=== PATIENT | male | born 1960 | race Caucasian/White ===

== ENCOUNTER 2020-06-28 01:23 | Emergency (ER) | payer OTHER, MEDICAID, SELFPAY ==
[2020-06-28 01:23] VITALS: BP 178/99; PULSE 116; RESP 18; TEMP 36.7; O2SAT 98; BMI 32.5
[2020-06-28] MEDS: SODIUM CHLORIDE 0.9% 500 ML 1000 ML IV (02:16)
[2020-06-28] MEDS: DEXTROSE 50 % IN WATER 25 GM/50 ML SYRINGE IV (02:18)
[2020-06-28 02:30] LABS: Add Manual Diff / Slide Review NO; Basophils Absolute Auto 100 /uL (0-100); Basophils Percent Auto 0.5 % (0-2); Eosinophils Absolute Auto 300 /uL (0-450); Eosinophils Percent Auto 1.6 % (2-4); Hematocrit 29.9 % (41-53); Hemoglobin 9.4 g/dL (13.5-17.5); Lymphocytes Absolute Auto 800 /uL (1100-4500); Lymphocytes Percent Auto 4.6 % (25-40); Mean Corpuscular HGB Conc 31.4 % (30-36); Mean Corpuscular Hemoglobin 26.8 PG (26-34); Mean Corpuscular Volume 85.3 fL (80-100); Monocytes Absolute Auto 900 /uL (0-900); Monocytes Percent Auto 5.5 % (3-14); Neutrophils Absolute Auto 15100 /uL (1500-7000); Neutrophils Percent Auto 87.8 % (50-75); Platelet Count 553 X10^3/uL (150-400); Red Cell Distribution Width 14.6 % (11.6-14.8); White Blood Cell Count 17.2 X10^3/uL (4.5-11.0)
[2020-06-28 02:34] VITALS: BP 153/86; PULSE 94; O2SAT 97
[2020-06-28 02:39] LABS: Alanine Aminotransferase 6 IU/L (<50); Albumin 3.5 g/dL (3.5-5.0); Albumin Globulin Ratio 1.1 (1.0-2.8); Alkaline Phosphatase 80 U/L (38-126); Aspartate Aminotransferase 11 IU/L (17-59); Bilirubin Total 0.3 mg/dL (0.2-1.3); Blood Urea Nitrogen 40 mg/dL (9-20); Calcium 8.9 mg/dL (8.4-10.2); Carbon Dioxide 21 mmol/L (22-32); Chloride 110 mmol/L (98-107); Estimated Glomerular Filt Rate 17.3 mL/min (>60); Globulin 3.1 g/dL (1.7-4.1); Glucose 65 mg/dL (80-110); HEMOLYSIS < 15 (0-50); Potassium 4.7 mmol/L (3.4-5.1); Sodium 139 mmol/L (137-145); Total Protein 6.6 g/dL (6.3-8.2)
[2020-06-28 03:27] LABS: RBC Urine None Seen (0-5/HPF)
[2020-06-28 03:28] LABS: Appearance Urine UA CLOUDY; Bilirubin Urine UA NEGATIVE (NEGATIVE); Glucose Urine UA NEGATIVE (Negative); Ketones Urine UA NEGATIVE (NEGATIVE); Leukocyte Esterase Urine UA 3+ (NEGATIVE); Nitrite Urine UA POSITIVE (Negative); Occult Blood Urine UA 1+ (Negative); Protein Urine UA TRACE (Negative); Urobilinogen Urine UA 0.2 E.U./dL (0.2); pH Urine UA 6.5 (4.5-8.0)
[2020-06-28 03:32] LABS: Color Urine UA Yellow
[2020-06-28] MEDS: CEFTRIAXONE 2 GM/50 ML FROZ.PIGGY IV (03:39)
[2020-06-28 03:41] LABS: Bacteria Urine Many (>30); Culture Indicated Urine Specimen Cultured; Squamous Epithelial Cell Urine 1-5 /HPF (0-5/HPF); WBC Urine 30-100/HPF (0-5/HPF)
--- NOTE | 2020-06-28 04:02 | ED_ITS ---
HPI - General Adult General Chief complaint: Diabetic Problem Stated complaint: Hand feel weird Time Seen by Provider: 06/28/20 01:41 Source: patient and EMS Mode of arrival: EMS History of Present Illness HPI narrative: 59-year-old gentleman with a history of multiple sclerosis currently living and [facility]. Was noted today to have slightly slurred speech and complaining of tingling in his hands and was sent to the emergency room for further evaluation. Initial blood sugar was noted to be 35. This certainly could explain the symptoms noted. He was given a number of things to eat and after an hour his sugar was still only up to the mid 60s. He knows that he was given his usual 30 units of nighttime Lantus and is very clear that there was only 1 dose of insulin this evening. He complains of no new sym ptoms. Specifically, no fevers, no abdominal pain no dysuria, no cough. He does note that he thinks he has some abrasions from 1 of the lifts that was used and does note that there is some excoriation over his perineum. Related Data Previous Rx's Medication Instructions Recorded cephalexin 500 mg PO TID #30 cap 06/28/20 Allergies Allergy/AdvReac Type Severity Reaction Status Date / Time No Known Drug Allergies Allergy Verified 06/28/20 01:30 Review of Systems Review of Systems ROS Unobtainable: All systems reviewed & are unremarkable except as noted in HPI and below Patient History Medical History (Updated 06/28/20 @ 04:18 by Tesha Zarco MD) Chronic anemia Chronic kidney disease Hyperlipidemia Hypertension Multiple sclerosis Neurogenic bladder Stroke Type 2 diabetes mellitus Social History Smoking Status: Never smoker Smoking Status: Never smoker alcohol intake frequency: 0-2 drinks per day Substance Use Type: does not use Exam Narrative Exam Narrative: General: Healthy appearing, in no acute distress. Able to participate with history taking HEENT: Moist mucous membranes, normal sclera with reactive pupils, mild dysarthria Neck: No JVD, supple Respiratory: Lungs are clear to auscultation, no wheezing no rales no rhonchi. Full and symmetrical air movement Cardiac: Regular rate and rhythm no murmurs no bruits Abdomen: Soft, nontender, good bowel tones, no flank pain Skin: Pale but dry. Significant excoriation secondary to chronic moisture over the perineum and up both upper thighs without evidence of pressure ulcers Neurologic: Globally weak secondary to his multiple sclerosis Extremities: No trauma, well perfused Psych: Cooperative, appropriate insight and affect Initial Vital Signs Initial Vital Signs: Vital Signs Temperature 98.0 F 06/28/20 01:23 Pulse Rate 116 H 06/28/20 01:23 Respiratory Rate 18 06/28/20 01:23 Blood Pressure 178/99 H 06/28/20 01:23 Pulse Oximetry 98 06/28/20 01:23 Course Orders Ordered: ED Orders 06/28/20 EKG-12 Lead Stat 06/28/20 02:20 Complete Blood Count AUTO DIFF Stat Comprehensive Metabolic Panel Stat 06/28/20 03:10 Urinalysis and Microscopic Stat Urine Culture Stat Discontinued Medications Dextrose (Dextrose 50 % In Water 25 Gm/50 Ml Syringe) 25 gm IV NOW ONE Stop: 06/28/20 02:11 Last Admin: 06/28/20 02:18 Dose: 25 gm Documented by: MUNIRA Sodium Chloride (Normal Saline 0.9%) 500 mls @ 1,000 mls/hr IV BOLUS ONE Stop: 06/28/20 02:39 Last Infusion: 06/28/20 02:50 Dose: 0 mls/hr Documented by: Admin: 06/28/20 02:16 Dose: 1,000 mls/hr Documented by: MUNIRA Ceftriaxone Sodium/Dextrose (Rocephin) 2 gm in 50 mls @ 100 mls/hr IV NOW ONE Stop: 06/28/20 04:03 Last Admin: 06/28/20 03:39 Dose: 100 mls/hr Documented by: JOHNNIE Vital Signs Vital signs: Vital Signs - 8 hr 06/28/20 01:23 06/28/20 02:34 Temperature 98.0 F Pulse Rate 116 H 94 H Respiratory Rate 18 Blood Pressure 178/99 H 153/86 H Pulse Oximetry 98 97 Medical Decision Making Medical Records Medical records reviewed: Yes I reviewed the patient's medical records. Lab Data Lab results reviewed: Yes I reviewed the patient's lab results. Result diagrams: 06/28/20 02:20 06/28/20 02:20 Labs: Lab Results 06/28/20 06/28/20 06/28/20 Range/Units 02:20 02:20 03:10 WBC 17.2 H (4.5-11.0) X10^3/uL RBC 3.50 L (4.5-5.9) X10^6/uL Hgb 9.4 L (13.5-17.5) g/dL Hct 29.9 L (41-53) % MCV 85.3 (80-100) fL MCH 26.8 (26-34) PG MCHC 31.4 (30-36) % RDW 14.6 (11.6-14.8) % Plt Count 553 H (150-400) X10^3/uL Neut % (Auto) 87.8 H (50-75) % Lymph % (Auto) 4.6 L (25-40) % [place] % (Auto) 5.5 (3-14) % Eos % (Auto) 1.6 L (2-4) % Baso % (Auto) 0.5 (0-2) % Neut # (Auto) 51685 H (6678-6919) /uL Lymph # (Auto) 800 L (5339-0806) /uL [place] # (Auto) 900 (0-900) /uL Eos # (Auto) 300 (0-450) /uL Baso # (Auto) 100 (0-100) /uL Sodium 139 (137-145) mmol/L Potassium 4.7 (3.4-5.1) mmol/L Chloride 110 H (98-107) mmol/L Carbon Dioxide 21 L (22-32) mmol/L BUN 40 H (9-20) mg/dL Creatinine 3.62 H (0.66-1.25) mg/dL Estimated GFR 17.3 L (>60) mL/min BUN/Creatinine Ratio 11.0 (6-22) Glucose 65 L (80-110) mg/dL Calcium 8.9 (8.4-10.2) mg/dL Total Bilirubin 0.3 (0.2-1.3) mg/dL AST 11 L (17-59) IU/L ALT 6 (<50) IU/L Alkaline Phosphatase 80 (38-126) U/L Total Protein 6.6 (6.3-8.2) g/dL Albumin 3.5 (3.5-5.0) g/dL Globulin 3.1 (1.7-4.1) g/dL Albumin/Globulin Ratio 1.1 (1.0-2.8) Urine Color Yellow Urine Appearance Cloudy Urine pH 6.5 (4.5-8.0) Ur Specific [place] 1.010 (1.000-1.035) Urine Protein Trace H (Negative) Urine Glucose (UA) Negative (Negative) g/dL Urine Ketones Negative (NEGATIVE) Urine Occult Blood 1+ H (Negative) Urine Nitrate Positive (Negative) Urine Bilirubin Negative (NEGATIVE) Urine Urobilinogen 0.2 (0.2) E.U./dL Ur Leukocyte Esterase 3+ H (NEGATIVE) Urine RBC None seen (0-5/HPF) Urine WBC 30-100/hpf H (0-5/HPF) Ur Squamous Epith Cells 1-5 /hpf (0-5/HPF) Urine Bacteria Many (>30) H (None) Ur Culture Indicated? Specimen cultured Point of Care Testing Glucose POC 97 Point of care testing: Point of Care Testing Glucose POC 97 ECG Data Attestation: I personally reviewed and interpreted this ECG as follows: Interpretation: Sinus tachycardia at 110 Normal axis, normal intervals No acute ischemic changes MDM Narrative Medical decision making narrative: 59-year-old gentleman with concerns for acute neurologic changes that correlated nicely with a blood sugar in the mid 30s and have resolved as his blood sugar has increased. Noted to have a significantly elevated white blood cell count And urinalysis suggests an acute UTI. Moderate excoriation to the perineum and upper thighs without obvious cellulitis. Area was cleaned thoroughly and barrier dressing was applied as well as a clean brief. He has been afebrile, has no specific complaints, states that he does not feel acutely ill nor does he notice any dysuria (he states that he typically can feel dysuria with prior bladder infections). In the emergency department he was given 25 g of IV glucose and blood sugars are in the 170 range he is clearly feeling better. 2 g of IV ceftriaxone to cover both urine and skin concerns with mild perineal breakdown. His heart rate has come down nicely he has remained afebrile and blood pressure has been stable throughout his visit. There are no signs of sepsis, acute coronary syndrome, acute neurologic event or significant exacerbation of his MS this time. He will be discharged back to his assisted living facility with a prescription for Keflex for presumed UTI (urine is cultured) and to help with the excoriated area of the perineum. 630 am BS is 97. Breakfast tray is ordered. transport expected to be available after 7am Discharge Plan Departure Patient Disposition: Home Clinical Impression: Hypoglycemia, Multiple sclerosis, Skin ulcer of perineum, limited to breakdown of skin, Chronic anemia Chronic kidney disease Qualifiers: Chronic kidney disease stage: unspecified stage Qualified Code(s): N18.9 - Chronic kidney disease, unspecified Urinary tract infection Qualifiers: Urinary tract infection type: acute cystitis Hematuria presence: without hematuria Qualified Code(s): N30.00 - Acute cystitis without hematuria Instructions: DI for Urinary Tract Infection (UTI) Activity Restrictions/Additional Instructions: You had an episode of significant hypoglycemia today and this caused some of the confusion and numbness that you experienced prior to arrival. This is resolved with some IV sugar as well as eating. Your noted to have a high white blood cell count in your urine looks like you do have a bladder infection. This may be the cause of the hypoglycemia noted today. You have been given 2 g of IV ceftriaxone and will need to complete an additional 10 days of oral Keflex. If the urine culture comes back suggesting a different antibiotic is required you will be contacted by phone. You have quite a bit of excoriation over your buttocks scrotum and upper thighs. You need to make sure that your brief his changed regularly and barrier creams or generously used and might even consider a condom cath for a bit of time so the skin can heal completely. If they are worsening symptoms, please feel free to return to the emergency d epartment Prescriptions: New cephalexin 500 mg capsule 500 mg PO TID Qty: 30 RF: 0
== END 2020-06-28 08:58 | disposition home or self-care (01) ==
PROVIDERS: Emergency Provider Emergency Medicine
DX: E11.649 Type 2 diabetes mellitus with hypoglycemia without coma (principal); L98.491 Non-pressure chronic ulcer of skin of other sites limited to breakdown of skin; N18.9 Chronic kidney disease, unspecified; D64.9 Anemia, unspecified; N30.00 Acute cystitis without hematuria; R20.2 Paresthesia of skin; G35 Multiple sclerosis; I10 Essential (primary) hypertension; E78.5 Hyperlipidemia, unspecified; D72.829 Elevated white blood cell count, unspecified
CPT/HCPCS: 36415; 80053; 81001; 82962; 85025; 87077; 87086; 87186; 93005; 93010; 96361; 96365; 99283; 99284; J0696

== ENCOUNTER → 2020-09-01 16:03 | Outpatient (ROUT) | payer OTHER, MEDICAID, SELFPAY ==
[2020-09-01 16:17] LABS: Add Manual Diff / Slide Review NO; Basophils Absolute Auto 100 /uL (0-100); Basophils Percent Auto 0.7 % (0-2); Eosinophils Absolute Auto 800 /uL (0-450); Eosinophils Percent Auto 6.5 % (2-4); Hematocrit 34.7 % (41-53); Hemoglobin 11.1 g/dL (13.5-17.5); Lymphocytes Absolute Auto 1200 /uL (1100-4500); Lymphocytes Percent Auto 9.4 % (25-40); Mean Corpuscular Hemoglobin 28.3 PG (26-34); Mean Corpuscular Volume 88.3 fL (80-100); Monocytes Absolute Auto 1000 /uL (0-900); Monocytes Percent Auto 8.2 % (3-14); Neutrophils Absolute Auto 9400 /uL (1500-7000); Neutrophils Percent Auto 75.2 % (50-75); Platelet Count 398 X10^3/uL (150-400); Red Blood Cell Count 3.93 X10^6/uL (4.5-5.9); Red Cell Distribution Width 16.1 % (11.6-14.8); White Blood Cell Count 12.6 X10^3/uL (4.5-11.0)
[2020-09-01 16:24] LABS: BUN Creatinine Ratio 14.9 (6-22); Blood Urea Nitrogen 51 mg/dL (9-20); Calcium 8.7 mg/dL (8.4-10.2); Carbon Dioxide 20 mmol/L (22-32); Chloride 112 mmol/L (98-107); Estimated Glomerular Filt Rate 18.4 mL/min (>60); Glucose 129 mg/dL (80-110); Sodium 142 mmol/L (137-145)
[2020-09-01 16:27] LABS: HEMOLYSIS 69 (0-50); Potassium 5.5 mmol/L (3.4-5.1)
== END ==
PROVIDERS: Visit Provider Internal Medicine
DX: N18.9 Chronic kidney disease, unspecified (principal)
CPT/HCPCS: 80048; 85025

== ENCOUNTER → 2020-09-06 12:12 | Outpatient (ROUT) | payer OTHER, MEDICAID, SELFPAY ==
[2020-09-06 12:31] LABS: BUN Creatinine Ratio 14.6 (6-22); Blood Urea Nitrogen 53 mg/dL (9-20); Calcium 8.6 mg/dL (8.4-10.2); Carbon Dioxide 20 mmol/L (22-32); Chloride 111 mmol/L (98-107); Estimated Glomerular Filt Rate 17.3 mL/min (>60); Glucose 120 mg/dL (80-110); HEMOLYSIS 26 (0-50); Potassium 5.2 mmol/L (3.4-5.1); Sodium 140 mmol/L (137-145)
== END ==
PROVIDERS: Visit Provider Internal Medicine
DX: E87.5 Hyperkalemia (principal); Z79.899 Other long term (current) drug therapy
CPT/HCPCS: 80048

== ENCOUNTER → 2020-09-20 08:00 | Outpatient (ROUT) | payer OTHER, MEDICAID, SELFPAY ==
[2020-09-20 08:50] LABS: BUN Creatinine Ratio 18.8 (6-22); Blood Urea Nitrogen 52 mg/dL (9-20); Calcium 8.3 mg/dL (8.4-10.2); Carbon Dioxide 24 mmol/L (22-32); Chloride 111 mmol/L (98-107); Estimated Glomerular Filt Rate 23.6 mL/min (>60); Glucose 67 mg/dL (80-110); HEMOLYSIS < 15 (0-50); Potassium 4.6 mmol/L (3.4-5.1); Sodium 140 mmol/L (137-145)
== END ==
PROVIDERS: Visit Provider Nurse Practitioner Family
DX: N18.9 Chronic kidney disease, unspecified (principal)
CPT/HCPCS: 36415; 80048

== ENCOUNTER → 2020-09-21 13:58 | Outpatient (CLI) | payer OTHER, MEDICAID, SELFPAY ==
--- NOTE | 2020-09-21 | DI.US.S_ITS ---
PROCEDURE: US RENAL COMPLETE INDICATIONS: Unspecified hydronephrosis TECHNIQUE: Real-time scanning was performed of the kidneys and bladder, with image documentation. COMPARISON: [facility], CT, CT KUB, 11/17/2019, 1:53. [facility], US, US RENAL COMPLETE, 05/04/2020, 9:14. FINDINGS: Kidneys: Kidneys are normal in size. Right kidney measures 10.2 cm long; left kidney measures 9.1 cm long. Right renal cortical thickness is 1.4 cm; left renal cortical thickness is 1.4 cm. Renal cortical echotexture is normal. There is bilateral moderate hydronephrosis and no nephrolithiasis. No suspicious solid mass lesions. Bladder: The bladder was empty at time of scanning but the bladder wall appears abnormally thickened at 7 to 18 mm approximate range of thickness. Miscellaneous: No free pelvic fluid. IMPRESSION: Bilateral moderate hydronephrosis is again present with reference to the prior ultrasound 05/04/20. The bladder was not distended at time of scanning in the bladder wall appears abnormally thickened. Further assessment of the bladder is recommended utilizing proper preparation if possible. Etiology of bladder wall thickening has not been established. The bladder wall did not appear thickened at time of CT scanning 11/17/19, but at that time the bladder was urine filled and somewhat distended.. Dictated by: Pierre Shields M.D. on 09/21/2020 at 15:57 Approved by: Pierre Shields M.D. on 09/21/2020 at 16:00
== END ==
PROVIDERS: Referring Provider Internal Medicine; Visit Provider Nurse Practitioner Gerontology
DX: N13.30 Unspecified hydronephrosis (principal)
CPT/HCPCS: 76770

== ENCOUNTER → 2020-10-11 08:10 | Outpatient (ROUT) | payer OTHER, MEDICAID, SELFPAY ==
[2020-10-11 08:37] LABS: Add Manual Diff / Slide Review NO; Basophils Absolute Auto 100 /uL (0-100); Basophils Percent Auto 1.1 % (0-2); Eosinophils Absolute Auto 700 /uL (0-450); Eosinophils Percent Auto 8.7 % (2-4); Hematocrit 32.8 % (41-53); Hemoglobin 10.8 g/dL (13.5-17.5); Lymphocytes Absolute Auto 1500 /uL (1100-4500); Lymphocytes Percent Auto 18.7 % (25-40); Mean Corpuscular Hemoglobin 28.7 PG (26-34); Monocytes Absolute Auto 700 /uL (0-900); Monocytes Percent Auto 9.5 % (3-14); Neutrophils Absolute Auto 4900 /uL (1500-7000); Platelet Count 279 X10^3/uL (150-400); Red Blood Cell Count 3.77 X10^6/uL (4.5-5.9); Red Cell Distribution Width 14.3 % (11.6-14.8); White Blood Cell Count 7.9 X10^3/uL (4.5-11.0)
[2020-10-11 08:54] LABS: Alanine Aminotransferase 13 IU/L (<50); Albumin 3.3 g/dL (3.5-5.0); Albumin Globulin Ratio 1.2 (1.0-2.8); Alkaline Phosphatase 64 U/L (38-126); Aspartate Aminotransferase 14 IU/L (17-59); BUN Creatinine Ratio 17.7 (6-22); Bilirubin Total 0.1 mg/dL (0.2-1.3); Blood Urea Nitrogen 55 mg/dL (9-20); Calcium 8.7 mg/dL (8.4-10.2); Carbon Dioxide 24 mmol/L (22-32); Chloride 111 mmol/L (98-107); Estimated Glomerular Filt Rate 20.7 mL/min (>60); Globulin 2.8 g/dL (1.7-4.1); Glucose 75 mg/dL (80-110); HEMOLYSIS < 15 (0-50); Phosphorous 4.2 mg/dL (2.3-3.7); Potassium 4.6 mmol/L (3.4-5.1); Sodium 140 mmol/L (137-145); Total Protein 6.1 g/dL (6.3-8.2); Uric Acid 6.3 mg/dL (3.5-8.5)
[2020-10-12 08:42] LABS: Parathyroid Hormone Int 52 pg/mL (15-65)
[2020-10-12 12:42] LABS: Osmolality, Serum 312 mOsmol/kg (275-295)
[2020-10-13 11:40] LABS: Albumin 3.1 g/dL (2.9-4.4); Alpha-1-Globulin 0.2 g/dL (0.0-0.4); Alpha-2-Globulin 0.6 g/dL (0.4-1.0); Globulin Total 2.5 g/dL (2.2-3.9); Protein, Total 5.6 g/dL (6.0-8.5)
== END ==
PROVIDERS: Visit Provider Internal Medicine
DX: N17.9 Acute kidney failure, unspecified (principal); N18.31 Chronic kidney disease, stage 3a; I10 Essential (primary) hypertension; E11.3299 Type 2 diabetes mellitus with mild nonproliferative diabetic retinopathy without macular edema, unspecified eye
CPT/HCPCS: 36415; 80053; 80069; 83930; 83970; 84155; 84165; 84550; 85025

== ENCOUNTER → 2020-10-13 08:43 | Outpatient (ROUT) | payer OTHER, MEDICAID, SELFPAY ==
[2020-10-13 08:47] LABS: Creatinine Urine Random QNS mg/dL; Microalbumi Creatinin Ratio Ur QNS ug/mg CR (<30); Microalbumin Urine Random QNS mg/dL (0-1.6); Potassium Urine Random QNS mmol/L; Sodium Urine Random QNS mmol/L (30-90)
[2020-10-13 08:48] LABS: Chloride, Urine QNS; Osmolality Urine QNS
[2020-10-13 08:49] LABS: Immunofixation, Urine QNS
[2020-10-13 09:20] LABS: Bacteria Urine Occasional (0-1); Culture Indicated Urine Specimen Cultured; RBC Urine 0-1/HPF (0-5/HPF); Squamous Epithelial Cell Urine 0-1 /HPF (0-5/HPF); WBC Urine 0-1/HPF (0-5/HPF)
[2020-10-13 12:28] LABS: Creatinine Urine Random 47.6 mg/dL; Potassium Urine Random 28.4 mmol/L; Sodium Urine Random 98 mmol/L (30-90)
[2020-10-13 12:30] LABS: Microalbumi Creatinin Ratio Ur 18.9 ug/mg CR (<30); Microalbumin Urine Random 0.9 mg/dL (0-1.6)
[2020-10-14 13:48] LABS: Chloride, Urine 80 mmol/L (Not Estab.)
[2020-10-14 15:08] LABS: Osmolality Urine 382 mOsmol/kg (.)
== END ==
PROVIDERS: Visit Provider Internal Medicine
DX: N17.9 Acute kidney failure, unspecified (principal); N18.31 Chronic kidney disease, stage 3a; I10 Essential (primary) hypertension; E11.3299 Type 2 diabetes mellitus with mild nonproliferative diabetic retinopathy without macular edema, unspecified eye
CPT/HCPCS: 81015; 82043; 82436; 82570; 83935; 84133; 84300; 86335; 87086

== ENCOUNTER → 2020-12-29 19:31 | Outpatient (ROUT) | payer OTHER, MEDICAID, SELFPAY ==
[2020-12-29 19:40] LABS: Appearance Urine UA SL CLOUDY; Bilirubin Urine UA NEGATIVE (NEGATIVE); Color Urine UA RED; Glucose Urine UA TRACE g/dL (Negative); Ketones Urine UA NEGATIVE (NEGATIVE); Leukocyte Esterase Urine UA 1+ (NEGATIVE); Nitrite Urine UA POSITIVE (Negative); Occult Blood Urine UA 3+ (Negative); Protein Urine UA 3+ (Negative); Urobilinogen Urine UA 0.2 E.U./dL (0.2)
[2020-12-29 20:06] LABS: RBC Urine >100/HPF (0-5/HPF); WBC Urine 5-10/HPF (0-5/HPF)
[2020-12-29 20:07] LABS: Amorphous Sediment Urine 1+; Bacteria Urine Occasional (0-1); Culture Indicated Urine Specimen Cultured; Squamous Epithelial Cell Urine 0-1 /HPF (0-5/HPF)
== END ==
PROVIDERS: Visit Provider Nurse Practitioner Family
DX: R31.9 Hematuria, unspecified (principal); R30.0 Dysuria
CPT/HCPCS: 81001; 87077; 87086; 87147; 87186

== ENCOUNTER 2020-12-30 10:26 | Inpatient (IN) | payer OTHER, MEDICAID, SELFPAY ==
[2020-12-30] VITALS (54 sets, daily range): BP systolic 78–155; BP diastolic 46–85; PULSE 78–140; RESP 16–27; TEMP 36.9; O2SAT 95–100
--- NOTE | 2020-12-30 10:35 | ED.MALEGU ---
HPI - Male Genitourinary <Taylor Mcbride - Last Filed: 12/31/20 19:07> General Chief complaint: Urogenital-Male Stated complaint: Hematuria and tachycardia Time Seen by Provider: 12/30/20 10:27 Source: patient and other ([employer] Marguerite Simon) Mode of arrival: EMS Limitations: no limitations History of Present Illness HPI Narrative: This is a 60-year-old male with known history of multiple sclerosis living at [facility] living. Patient does have a history of diabetes, dyslipidemia hypertension as well as chronic kidney disease and neurogenic bladder. Patient at baseline has left-sided weakness as well as some slightly slurred speech. Patient was sent to the emergency department for elevated heart rate in the 120 and a systolic pressure in the 100 range. Patient began having hematuria yesterday. He had hematuria throughout the night. He did have an in and out catheter after the hematuria began and this urine was sent for analysis. Had not resulted. Appears to show no growth at this time but is still preliminary. Patient denies any fevers. He denies any chest pain, no shortness of breath, no lightheadedness or passing out, he denies any abdominal, back or flank pain. He denies any new issues with bowel movements. He states normal stools. He has noticed some hematuria. He does have chronic urinary incontinence and normally wears adult diapers. States he feels at his normal baseline. His mentation is at his normal baseline per EMS and nurse practitioner that cares for him. Related Data Home Medications Medication Instructions Recorded Confirmed acetaminophen 325 mg capsule 650 mg PO Q4H PRN 12/30/20 12/30/20 aspirin 81 mg tablet 81 mg PO QAM 12/30/20 12/30/20 atorvastatin 20 mg tablet 20 mg PO QAM 12/30/20 12/30/20 bismuth subsalicylate 262 mg/15 mL 524 mg PO Q4HR PRN 12/30/20 12/30/20 oral suspension (Pepto-Bismol) chlorhexidine gluconate 2 % See Rx Instructions .ROUTE .COMPLEX 12/30/20 12/30/20 topical liquid docusate sodium 100 mg capsule 200 mg PO QAM 12/30/20 12/30/20 ferrous sulfate 325 mg (65 mg 325 mg PO QAM 12/30/20 12/30/20 iron) capsule,extended release hydrocodone 5 mg-acetaminophen 325 1 - 2 tab PO Q6H PRN 12/30/20 12/30/20 mg tablet insulin glargine 100 unit/mL (3 30 unit SUBCUT DAILY 12/30/20 12/30/20 mL) subcutaneous pen (Lantus Solostar U-100 Insulin) lidocaine 4 % topical patch 1 patch TOPICAL TID 12/30/20 12/30/20 (Aspercreme (lidocaine)) lisinopril 5 mg tablet 5 mg PO QAM 12/30/20 12/30/20 loperamide 2 mg capsule 2 mg PO QID PRN 12/30/20 12/30/20 pantoprazole 40 mg tablet,delayed 40 mg PO QAM 12/30/20 12/30/20 release polyethylene glycol 3350 17 gram 17 g PO QAM 12/30/20 12/30/20 oral powder packet tamsulosin 0.4 mg capsule 0.4 mg PO QAM 12/30/20 12/30/20 Allergies Allergy/AdvReac Type Severity Reaction Status Date / Time No Known Drug Allergies Allergy Verified 12/30/20 10:48 Review of Systems <Taylor Mcbride DO - Last Filed: 12/31/20 19:07> Review of Systems ROS Unobtainable: All systems reviewed & are unremarkable except as noted in HPI and below Patient History <Taylor Mcbride DO - Last Filed: 12/31/20 19:07> Medical History Chronic anemia Chronic kidney disease Hyperlipidemia Hypertension Multiple sclerosis Neurogenic bladder Stroke Type 2 diabetes mellitus Social History household members: caregiver Smoking Status: Never smoker alcohol intake: former Smoking Status: Never smoker alcohol intake frequency: 0-2 drinks per day Substance Use Type: does not use Exam <Taylor Mcbride DO - Last Filed: 12/31/20 19:07> Narrative Exam Narrative: GENERAL: Alert and oriented x three, male in mild distress. Patient has slightly slurred speech. HEENT: Head normocephalic, atraumatic, EOMI, pupils reactive, face symmetric, moist mucous membranes NECK: Supple, full range of motion CARDIOVASCULAR: Tachycardic but Regular rate and rhythm without murmurs, rubs or gallops. RESPIRATORY: Breath sounds equal bilaterally, no wheezes rales or rhonchi. No tachypnea accessory muscle use. ABDOMEN: Soft, nontender. Normoactive bowel sounds all 4 quadrants. No guarding or rebound, rigidity, no mass : No CVA tenderness EXTREMITIES: Generalized weakness with minimal movement of the lower extremities. Patient does have some movement particularly on the right side compared to left the upper extremities. Per patient and EMS this is baseline., no clubbing. 2+ pulses all 4 extremities. NEUROLOGICAL: Cranial nerves II through XII grossly intact. SKIN: Warm, dry, no petechiae, no rashes or lesions. Initial Vital Signs Initial Vital Signs: Vital Signs Pulse Rate 111 H 12/30/20 10:30 Blood Pressure 129/85 12/30/20 10:30 Pulse Oximetry 96 12/30/20 10:30 <Alesia Fung, DO - Last Filed: 12/31/20 21:36> Initial Vital Signs Initial Vital Signs: Vital Signs Pulse Rate 111 H 12/30/20 10:30 Blood Pressure 129/85 12/30/20 10:30 Pulse Oximetry 96 12/30/20 10:30 Course <Taylor Mcbride, DO - Last Filed: 12/31/20 19:07> Orders Ordered: Acetaminophen (Acetaminophen 325 Mg Tablet) 650 mg PO Q4H PRN PRN Reason: fever/pain Aspirin (Aspirin Ec 81 Mg Tablet) 81 mg PO DAILY [facility] Last Admin: 12/31/20 17:39 Dose: 81 mg Documented by: AVINASH Atorvastatin Calcium (Atorvastatin 20 Mg Tablet) 20 mg PO DAILY [facility] Last Admin: 12/31/20 17:33 Dose: 20 mg Documented by: AVINASH Docusate Sodium (Docusate 100 Mg Capsule) 200 mg PO DAILY [facility] Last Admin: 12/31/20 17:33 Dose: Not Given Documented by: AVINASH Ferrous Sulfate (Ferrous Sulfate 325 Mg Tablet) 325 mg PO DAILY [facility] Heparin Sodium (Porcine) (Heparin 5,000 Unit/Ml Vial) 5,000 unit SUBCUT BID [facility] Heparin Sodium (Porcine) (Heparin Flush (Cl/Picc/Mid-Line) 50 Unit/5 Ml Syringe) 50 unit IV PRN PRN PRN Reason: Flush Sodium Bicarbonate 150 meq/ (Dextrose) 1,150 mls @ 150 mls/hr IV CONT [facility] Last Infusion: 12/31/20 01:45 Dose: 0 mls/hr Documented by: Admin: 12/30/20 23:00 Dose: 150 mls/hr Documented by: Infusion: 12/30/20 22:05 Dose: 150 mls/hr Documented by: Admin: 12/30/20 14:24 Dose: 150 mls/hr Documented by: JACKIE Norepinephrine Bitartrate 4 mg (/ Dextrose) 254 mls @ 30.48 mls/hr IV TITRATE [facility]; Protocol Last Titration: 12/31/20 00:35 Dose: 0 mcg/min, 0 mls/hr Documented by: Titration: 12/30/20 22:20 Dose: 0 mcg/min, 0 mls/hr Documented by: Titration: 12/30/20 21:56 Dose: 9.97 mcg/min, 38 mls/hr Documented by: Titration: 12/30/20 17:32 Dose: 12 mcg/min, 45.72 mls/hr Documented by: Admin: 12/30/20 16:57 Dose: 8 mcg/min, 30.48 mls/hr Documented by: LASHAWN Piperacillin Sod/Tazobactam (Sod 3.375 gm/ Sodium Chloride) 100 mls @ 25 mls/hr IV Q12H [facility] Last Admin: 12/31/20 11:08 Dose: 25 mls/hr Documented by: JACKI Sodium Chloride (Normal Saline 0.9%) 1,000 mls @ 100 mls/hr IV CONT [facility] Last Admin: 12/31/20 11:06 Dose: 100 mls/hr Documented by: JACKI Insulin Glargine (Insulin Glargine 100 Unit/Ml 3ml Pen) 30 unit SUBCUT DAILY [facility] Insulin Human Lispro (Insulin Lispro 100 Unit/Ml 3ml Vial) 0 unit SUBCUT ACHS [facility]; Protocol Last Admin: 12/31/20 17:36 Dose: 1 unit Documented by: AVINASH Cosigned by: STEPHANIE Lidocaine (Lidocaine Patch 1 Each Adh..Patch) 1 each TOP DAILY [facility] Last Admin: 12/31/20 17:40 Dose: 1 each Documented by: AVINASH Lidocaine (Remove Lidocaine Patch) 1 each TOP BEDTIME [facility] Loperamide HCl (Loperamide 2 Mg Capsule) 2 mg PO QID PRN PRN Reason: Diarrhea Naloxone HCl (Naloxone 0.4 Mg/Ml Vial) 0.2 mg IV Q2MIN PRN PRN Reason: Opiate Reversal Ondansetron HCl (Ondansetron 4 Mg/2 Ml Inj) 4 mg IV Q8HR PRN PRN Reason: Nausea And Vomiting Pantoprazole Sodium (Pantoprazole Dr 40 Mg Tablet) 40 mg PO 0600 [facility] Last Admin: 12/31/20 17:32 Dose: 40 mg Documented by: AVINASH Polyethylene Glycol (Polyethylene Glycol 3350 17 Gm Powd.Pack) 17 gm PO DAILY [facility] Last Admin: 12/31/20 17:34 Dose: Not Given Documented by: AVINASH Tamsulosin HCl (Tamsulosin 0.4 Mg Capsule) 0.4 mg PO DAILY [facility] Last Admin: 12/31/20 17:33 Dose: 0.4 mg Documented by: AVINASH Vancomycin HCl (Vancomycin Trough) 1 request [facility] NOW ONE Stop: 01/01/21 11:01 Discontinued Medications Dextrose (Dextrose 50 % In Water 25 Gm/50 Ml Syringe) 25 gm IV NOW ONE Stop: 12/30/20 12:42 Last Admin: 12/30/20 13:48 Dose: 25 gm Documented by: JACKIE Piperacillin Sod/Tazobactam (Sod 4.5 gm/ Sodium Chloride) 100 mls @ 200 mls/hr IV NOW ONE Stop: 12/30/20 11:08 Last Infusion: 12/30/20 12:25 Dose: 0 mls/hr Documented by: Admin: 12/30/20 11:40 Dose: 200 mls/hr Documented by: JACKIE Sodium Chloride (Normal Saline 0.9%) 1,000 mls @ 1,000 mls/hr IV BOLUS ONE Stop: 12/30/20 12:33 Last Infusion: 12/30/20 12:26 Dose: 0 mls/hr Documented by: Admin: 12/30/20 11:41 Dose: 1,000 mls/hr Documented by: JACKIE Sodium Chloride (Normal Saline 0.9%) 2,830.41 mls @ 943.47 mls/hr 30 ml/kg infuse over 3 hr (2830.41 ml) IV NOW ONE Stop: 12/30/20 15:23 Last Infusion: 12/30/20 13:47 Dose: 0 mls/hr Documented by: Admin: 12/30/20 12:40 Dose: 943.47 mls/hr Documented by: JACKIE Calcium Gluconate 4.65 meq/ (Sodium Chloride) 60 mls @ 180 mls/hr IV NOW ONE Stop: 12/30/20 13:00 Last Infusion: 12/30/20 14:10 Dose: 0 mls/hr Documented by: Admin: 12/30/20 13:48 Dose: 180 mls/hr Documented by: JACKIE Sodium Bicarbonate 100 meq/ (Dextrose) 1,100 mls @ 150 mls/hr IV CONT [facility] Last Admin: 12/30/20 14:40 Dose: Not Given Documented by: JACKIE Sodium Chloride (Normal Saline 0.9%) 500 mls @ 1,000 mls/hr IV BOLUS ONE Stop: 12/30/20 15:36 Last Infusion: 12/30/20 15:46 Dose: 0 mls/hr Documented by: Admin: 12/30/20 15:09 Dose: 1,000 mls/hr Documented by: JACKIE Sodium Chloride (Normal Saline 0.9%) 1,000 mls @ 1,000 mls/hr IV BOLUS ONE Stop: 12/30/20 16:49 Last Infusion: 12/30/20 17:34 Dose: 0 mls/hr Documented by: Admin: 12/30/20 15:53 Dose: 1,000 mls/hr Documented by: JACKIE Piperacillin Sod/Tazobactam (Sod 4.5 gm/ Sodium Chloride) 100 mls @ 200 mls/hr IV NOW ONE Stop: 12/30/20 22:01 Last Admin: 12/30/20 22:10 Dose: Not Given Documented by: KARLI Piperacillin Sod/Tazobactam (Sod 4.5 gm/ Sodium Chloride) 100 mls @ 200 mls/hr IV Q6H [facility] Last Infusion: 12/30/20 22:52 Dose: 0 mls/hr Documented by: Admin: 12/30/20 22:11 Dose: 200 mls/hr Documented by: KARLI Vancomycin HCl/Dextrose (Vancomycin) 1,500 mg in 300 mls @ 200 mls/hr IV NOW ONE Stop: 12/30/20 23:30 Last Infusion: 12/31/20 00:35 Dose: 0 mls/hr Documented by: Admin: 12/30/20 22:52 Dose: 200 mls/hr Documented by: KARLI Sodium Chloride (Normal Saline 0.9%) 500 mls @ 1,000 mls/hr IV BOLUS ONE Stop: 12/30/20 23:24 Last Infusion: 12/31/20 00:10 Dose: 0 mls/hr Documented by: Admin: 12/30/20 22:56 Dose: 1,000 mls/hr Documented by: KARLI Piperacillin Sod/Tazobactam (Sod 2.25 gm/ Sodium Chloride) 100 mls @ 200 mls/hr IV Q6H [facility] Piperacillin Sod/Tazobactam (Sod 2.25 gm/ Sodium Chloride) 100 mls @ 200 mls/hr IV Q6H [facility] Last Infusion: 12/31/20 04:42 Dose: 0 mls/hr Documented by: Admin: 12/31/20 04:09 Dose: 200 mls/hr Documented by: KARLI Sodium Chloride (Normal Saline 0.9%) 1,000 mls @ 500 mls/hr IV BOLUS ONE Stop: 12/31/20 09:35 Last Admin: 12/31/20 07:43 Dose: Not Given Documented by: SYDNI Sodium Chloride (Normal Saline 0.9%) 1,000 mls @ 250 mls/hr IV CONT [facility] Last Infusion: 12/31/20 08:58 Dose: 0 mls/hr Documented by: Admin: 12/31/20 07:47 Dose: 250 mls/hr Documented by: MIGUEL Sodium Chloride (Normal Saline 0.9%) 1,000 mls @ 100 mls/hr IV CONT [facility] Last Admin: 12/31/20 08:58 Dose: 100 mls/hr Documented by: MIGUEL Insulin Human Regular (Insulin Regular 100 Unit/Ml 3 Ml Vial) 10 unit IV NOW ONE Stop: 12/30/20 12:42 Last Admin: 12/30/20 13:48 Dose: 10 unit Documented by: JACKIE Cosigned by: CADE Sodium Bicarbonate (Sodium Bicarb 8.4% Syringe) 50 meq IV NOW ONE Stop: 12/30/20 12:42 Last Admin: 12/30/20 13:48 Dose: 50 meq Documented by: JACKIE Sodium Polystyrene Sulfonate (Sodium Polystyrene Sulfon/Sorb 15 Gm/60 Ml Cup) 30 gm PO NOW ONE Stop: 12/30/20 12:42 Last Admin: 12/30/20 13:48 Dose: 30 gm Documented by: JACKIE Vancomycin HCl (Vancomycin Per Pharmacy) 1 request MISC NOW ONE Stop: 12/31/20 14:29 Last Admin: 12/31/20 17:54 Dose: Not Given Documented by: AVINASH Consultations Consultation #1: Dr. Neil nephrology at [facility]. He is with patient's nephrology group. He recommends starting isotonic bicarb with D5 water and 3 amps of bicarb at 150 mL/hour based on patient's current electrolytes and renal function. He does feel patient is appropriate to transfer to outside facility. Discussed patient's findings today. Consultation #2: Dr. Escoto with nephrology, covering this weekend for Dr. Neil who I spoke with yesterday. Feels patient would be appropriate to continue to monitor in the hospital but does not warrant transfer at this time with his improvement in creatinine and current urine output. He is quite happy with his change in creatinine from 5.2-4.23. He would recommend continuing at least 75-100 mL/hour of NS. Antibiotics and continuing during our current pathway. Time: 07:45 Consultation #3: Dr. Lopez, accepts for admission. Patient has been and improvement in his renal function. As well as his urine output. It is not completely normalize he has been off Levophed for several hours. Continuing antibiotics and monitoring Vital Signs Vital signs: Vital Signs - 8 hr 12/31/20 01:00 12/31/20 01:15 12/31/20 01:30 Pulse Rate 112 H 93 H 109 H Respiratory Rate 20 21 25 H Blood Pressure 127/67 100/51 L 100/64 Pulse Oximetry 97 95 96 12/31/20 01:45 12/31/20 02:15 12/31/20 02:30 Pulse Rate 105 H 113 H 105 H Respiratory Rate 23 25 H 25 H Blood Pressure 100/76 110/56 L 123/59 L Pulse Oximetry 93 95 98 12/31/20 02:45 12/31/20 03:00 12/31/20 03:16 Pulse Rate 110 H 94 H 94 H Respiratory Rate 21 27 H 24 Blood Pressure 129/68 105/58 L 119/63 Pulse Oximetry 96 96 96 12/31/20 03:30 12/31/20 03:45 12/31/20 04:00 Pulse Rate 101 H 105 H 110 H Respiratory Rate 24 25 H 23 Blood Pressure 97/51 L 102/56 L 109/57 L Pulse Oximetry 95 95 98 12/31/20 04:15 12/31/20 04:30 12/31/20 04:45 Pulse Rate 107 H 98 H 111 H Respiratory Rate 26 H 25 H 24 Blood Pressure 114/63 111/63 119/71 Pulse Oximetry 97 96 93 12/31/20 05:00 12/31/20 05:15 12/31/20 05:30 Pulse Rate 90 98 H 104 H Respiratory Rate 21 23 22 Blood Pressure 104/57 L 90/57 L 129/73 Pulse Oximetry 96 96 97 12/31/20 05:45 12/31/20 06:00 12/31/20 06:16 Pulse Rate 95 H 107 H 87 Respiratory Rate 21 19 23 Blood Pressure 106/57 L 106/60 88/61 L Pulse Oximetry 96 97 97 12/31/20 06:30 12/31/20 06:45 12/31/20 07:01 Pulse Rate 93 H 103 H 94 H Respiratory Rate 23 20 21 Blood Pressure 101/61 94/54 L 71/41 L Pulse Oximetry 98 96 12/31/20 07:05 12/31/20 07:15 12/31/20 07:30 Pulse Rate 99 H 98 H 97 H Respiratory Rate 20 20 20 Blood Pressure 102/53 L 95/51 L Pulse Oximetry 96 96 97 12/31/20 07:34 12/31/20 07:45 12/31/20 08:00 Pulse Rate 96 H Respiratory Rate 20 Blood Pressure 114/63 119/64 106/59 L Pulse Oximetry 97 12/31/20 08:15 12/31/20 08:30 Pulse Rate 93 H 93 H Respiratory Rate 19 Blood Pressure 100/55 L 121/66 Pulse Oximetry 98 97 <Alesia Fung, DO - Last Filed: 12/31/20 21:36> Orders Ordered: Acetaminophen (Acetaminophen 325 Mg Tablet) 650 mg PO Q4H PRN PRN Reason: fever/pain Aspirin (Aspirin Ec 81 Mg Tablet) 81 mg PO DAILY [facility] Last Admin: 12/31/20 17:39 Dose: 81 mg Documented by: AVINASH Atorvastatin Calcium (Atorvastatin 20 Mg Tablet) 20 mg PO DAILY [facility] Last Admin: 12/31/20 17:33 Dose: 20 mg Documented by: AVINASH Docusate Sodium (Docusate 100 Mg Capsule) 200 mg PO DAILY [facility] Last Admin: 12/31/20 17:33 Dose: Not Given Documented by: AVINASH Ferrous Sulfate (Ferrous Sulfate 325 Mg Tablet) 325 mg PO DAILY [facility] Heparin Sodium (Porcine) (Heparin 5,000 Unit/Ml Vial) 5,000 unit SUBCUT BID [facility] Heparin Sodium (Porcine) (Heparin Flush (Cl/Picc/Mid-Line) 50 Unit/5 Ml Syringe) 50 unit IV PRN PRN PRN Reason: Flush Sodium Bicarbonate 150 meq/ (Dextrose) 1,150 mls @ 150 mls/hr IV CONT [facility] Last Infusion: 12/31/20 01:45 Dose: 0 mls/hr Documented by: Admin: 12/30/20 23:00 Dose: 150 mls/hr Documented by: Infusion: 12/30/20 22:05 Dose: 150 mls/hr Documented by: Admin: 12/30/20 14:24 Dose: 150 mls/hr Documented by: JACKIE Norepinephrine Bitartrate 4 mg (/ Dextrose) 254 mls @ 30.48 mls/hr IV TITRATE [facility]; Protocol Last Titration: 12/31/20 00:35 Dose: 0 mcg/min, 0 mls/hr Documented by: Titration: 12/30/20 22:20 Dose: 0 mcg/min, 0 mls/hr Documented by: Titration: 12/30/20 21:56 Dose: 9.97 mcg/min, 38 mls/hr Documented by: Titration: 12/30/20 17:32 Dose: 12 mcg/min, 45.72 mls/hr Documented by: Admin: 12/30/20 16:57 Dose: 8 mcg/min, 30.48 mls/hr Documented by: LASHAWN Piperacillin Sod/Tazobactam (Sod 3.375 gm/ Sodium Chloride) 100 mls @ 25 mls/hr IV Q12H [facility] Last Admin: 12/31/20 11:08 Dose: 25 mls/hr Documented by: JACKI Sodium Chloride (Normal Saline 0.9%) 1,000 mls @ 100 mls/hr IV CONT [facility] Last Admin: 12/31/20 11:06 Dose: 100 mls/hr Documented by: JACKI Insulin Glargine (Insulin Glargine 100 Unit/Ml 3ml Pen) 30 unit SUBCUT DAILY [facility] Insulin Human Lispro (Insulin Lispro 100 Unit/Ml 3ml Vial) 0 unit SUBCUT ACHS [facility]; Protocol Last Admin: 12/31/20 17:36 Dose: 1 unit Documented by: AVINASH Cosigned by: STEPHANIE Lidocaine (Lidocaine Patch 1 Each Adh..Patch) 1 each TOP DAILY [facility] Last Admin: 12/31/20 17:40 Dose: 1 each Documented by: AVINASH Lidocaine (Remove Lidocaine Patch) 1 each TOP BEDTIME [facility] Loperamide HCl (Loperamide 2 Mg Capsule) 2 mg PO QID PRN PRN Reason: Diarrhea Naloxone HCl (Naloxone 0.4 Mg/Ml Vial) 0.2 mg IV Q2MIN PRN PRN Reason: Opiate Reversal Ondansetron HCl (Ondansetron 4 Mg/2 Ml Inj) 4 mg IV Q8HR PRN PRN Reason: Nausea And Vomiting Pantoprazole Sodium (Pantoprazole Dr 40 Mg Tablet) 40 mg PO 0600 [facility] Last Admin: 12/31/20 17:32 Dose: 40 mg Documented by: AVINASH Polyethylene Glycol (Polyethylene Glycol 3350 17 Gm Powd.Pack) 17 gm PO DAILY [facility] Last Admin: 12/31/20 17:34 Dose: Not Given Documented by: AVINASH Tamsulosin HCl (Tamsulosin 0.4 Mg Capsule) 0.4 mg PO DAILY [facility] Last Admin: 12/31/20 17:33 Dose: 0.4 mg Documented by: AVINASH Vancomycin HCl (Vancomycin Trough) 1 request MISC NOW ONE Stop: 01/01/21 11:01 Discontinued Medications Dextrose (Dextrose 50 % In Water 25 Gm/50 Ml Syringe) 25 gm IV NOW ONE Stop: 12/30/20 12:42 Last Admin: 12/30/20 13:48 Dose: 25 gm Documented by: JACKIE Piperacillin Sod/Tazobactam (Sod 4.5 gm/ Sodium Chloride) 100 mls @ 200 mls/hr IV NOW ONE Stop: 12/30/20 11:08 Last Infusion: 12/30/20 12:25 Dose: 0 mls/hr Documented by: Admin: 12/30/20 11:40 Dose: 200 mls/hr Documented by: JACKIE Sodium Chloride (Normal Saline 0.9%) 1,000 mls @ 1,000 mls/hr IV BOLUS ONE Stop: 12/30/20 12:33 Last Infusion: 12/30/20 12:26 Dose: 0 mls/hr Documented by: Admin: 12/30/20 11:41 Dose: 1,000 mls/hr Documented by: JACKIE Sodium Chloride (Normal Saline 0.9%) 2,830.41 mls @ 943.47 mls/hr 30 ml/kg infuse over 3 hr (2830.41 ml) IV NOW ONE Stop: 12/30/20 15:23 Last Infusion: 12/30/20 13:47 Dose: 0 mls/hr Documented by: Admin: 12/30/20 12:40 Dose: 943.47 mls/hr Documented by: JACKIE Calcium Gluconate 4.65 meq/ (Sodium Chloride) 60 mls @ 180 mls/hr IV NOW ONE Stop: 12/30/20 13:00 Last Infusion: 12/30/20 14:10 Dose: 0 mls/hr Documented by: Admin: 12/30/20 13:48 Dose: 180 mls/hr Documented by: JACKIE Sodium Bicarbonate 100 meq/ (Dextrose) 1,100 mls @ 150 mls/hr IV CONT [facility] Last Admin: 12/30/20 14:40 Dose: Not Given Documented by: JACKIE Sodium Chloride (Normal Saline 0.9%) 500 mls @ 1,000 mls/hr IV BOLUS ONE Stop: 12/30/20 15:36 Last Infusion: 12/30/20 15:46 Dose: 0 mls/hr Documented by: Admin: 12/30/20 15:09 Dose: 1,000 mls/hr Documented by: JACKIE Sodium Chloride (Normal Saline 0.9%) 1,000 mls @ 1,000 mls/hr IV BOLUS ONE Stop: 12/30/20 16:49 Last Infusion: 12/30/20 17:34 Dose: 0 mls/hr Documented by: Admin: 12/30/20 15:53 Dose: 1,000 mls/hr Documented by: JACKIE Piperacillin Sod/Tazobactam (Sod 4.5 gm/ Sodium Chloride) 100 mls @ 200 mls/hr IV NOW ONE Stop: 12/30/20 22:01 Last Admin: 12/30/20 22:10 Dose: Not Given Documented by: KARLI Piperacillin Sod/Tazobactam (Sod 4.5 gm/ Sodium Chloride) 100 mls @ 200 mls/hr IV Q6H [facility] Last Infusion: 12/30/20 22:52 Dose: 0 mls/hr Documented by: Admin: 12/30/20 22:11 Dose: 200 mls/hr Documented by: KARLI Vancomycin HCl/Dextrose (Vancomycin) 1,500 mg in 300 mls @ 200 mls/hr IV NOW ONE Stop: 12/30/20 23:30 Last Infusion: 12/31/20 00:35 Dose: 0 mls/hr Documented by: Admin: 12/30/20 22:52 Dose: 200 mls/hr Documented by: KARLI Sodium Chloride (Normal Saline 0.9%) 500 mls @ 1,000 mls/hr IV BOLUS ONE Stop: 12/30/20 23:24 Last Infusion: 12/31/20 00:10 Dose: 0 mls/hr Documented by: Admin: 12/30/20 22:56 Dose: 1,000 mls/hr Documented by: KARLI Piperacillin Sod/Tazobactam (Sod 2.25 gm/ Sodium Chloride) 100 mls @ 200 mls/hr IV Q6H [facility] Piperacillin Sod/Tazobactam (Sod 2.25 gm/ Sodium Chloride) 100 mls @ 200 mls/hr IV Q6H [facility] Last Infusion: 12/31/20 04:42 Dose: 0 mls/hr Documented by: Admin: 12/31/20 04:09 Dose: 200 mls/hr Documented by: KARLI Sodium Chloride (Normal Saline 0.9%) 1,000 mls @ 500 mls/hr IV BOLUS ONE Stop: 12/31/20 09:35 Last Admin: 12/31/20 07:43 Dose: Not Given Documented by: SYDNI Sodium Chloride (Normal Saline 0.9%) 1,000 mls @ 250 mls/hr IV CONT [facility] Last Infusion: 12/31/20 08:58 Dose: 0 mls/hr Documented by: Admin: 12/31/20 07:47 Dose: 250 mls/hr Documented by: MIGUEL Sodium Chloride (Normal Saline 0.9%) 1,000 mls @ 100 mls/hr IV CONT [facility] Last Admin: 12/31/20 08:58 Dose: 100 mls/hr Documented by: MIGUEL Insulin Human Regular (Insulin Regular 100 Unit/Ml 3 Ml Vial) 10 unit IV NOW ONE Stop: 12/30/20 12:42 Last Admin: 12/30/20 13:48 Dose: 10 unit Documented by: JACKIE Cosigned by: CADE Sodium Bicarbonate (Sodium Bicarb 8.4% Syringe) 50 meq IV NOW ONE Stop: 12/30/20 12:42 Last Admin: 12/30/20 13:48 Dose: 50 meq Documented by: JACKIE Sodium Polystyrene Sulfonate (Sodium Polystyrene Sulfon/Sorb 15 Gm/60 Ml Cup) 30 gm PO NOW ONE Stop: 12/30/20 12:42 Last Admin: 12/30/20 13:48 Dose: 30 gm Documented by: JACKIE Vancomycin HCl (Vancomycin Per Pharmacy) 1 request MISC NOW ONE Stop: 12/31/20 14:29 Last Admin: 12/31/20 17:54 Dose: Not Given Documented by: AVINASH Vital Signs Vital signs: Vital Signs - 8 hr 12/31/20 01:00 12/31/20 01:15 12/31/20 01:30 Pulse Rate 112 H 93 H 109 H Respiratory Rate 20 21 25 H Blood Pressure 127/67 100/51 L 100/64 Pulse Oximetry 97 95 96 12/31/20 01:45 12/31/20 02:15 12/31/20 02:30 Pulse Rate 105 H 113 H 105 H Respiratory Rate 23 25 H 25 H Blood Pressure 100/76 110/56 L 123/59 L Pulse Oximetry 93 95 98 12/31/20 02:45 12/31/20 03:00 12/31/20 03:16 Pulse Rate 110 H 94 H 94 H Respiratory Rate 21 27 H 24 Blood Pressure 129/68 105/58 L 119/63 Pulse Oximetry 96 96 96 12/31/20 03:30 12/31/20 03:45 12/31/20 04:00 Pulse Rate 101 H 105 H 110 H Respiratory Rate 24 25 H 23 Blood Pressure 97/51 L 102/56 L 109/57 L Pulse Oximetry 95 95 98 12/31/20 04:15 12/31/20 04:30 12/31/20 04:45 Pulse Rate 107 H 98 H 111 H Respiratory Rate 26 H 25 H 24 Blood Pressure 114/63 111/63 119/71 Pulse Oximetry 97 96 93 12/31/20 05:00 12/31/20 05:15 12/31/20 05:30 Pulse Rate 90 98 H 104 H Respiratory Rate 21 23 22 Blood Pressure 104/57 L 90/57 L 129/73 Pulse Oximetry 96 96 97 12/31/20 05:45 12/31/20 06:00 12/31/20 06:16 Pulse Rate 95 H 107 H 87 Respiratory Rate 21 19 23 Blood Pressure 106/57 L 106/60 88/61 L Pulse Oximetry 96 97 97 12/31/20 06:30 12/31/20 06:45 12/31/20 07:01 Pulse Rate 93 H 103 H 94 H Respiratory Rate 23 20 21 Blood Pressure 101/61 94/54 L 71/41 L Pulse Oximetry 98 96 12/31/20 07:05 12/31/20 07:15 12/31/20 07:30 Pulse Rate 99 H 98 H 97 H Respiratory Rate 20 20 20 Blood Pressure 102/53 L 95/51 L Pulse Oximetry 96 96 97 12/31/20 07:34 12/31/20 07:45 12/31/20 08:00 Pulse Rate 96 H Respiratory Rate 20 Blood Pressure 114/63 119/64 106/59 L Pulse Oximetry 97 12/31/20 08:15 12/31/20 08:30 Pulse Rate 93 H 93 H Respiratory Rate 19 Blood Pressure 100/55 L 121/66 Pulse Oximetry 98 97 MDM - Male Genitourinary <Taylor Mcbride DO - Last Filed: 12/31/20 19:07> Lab Data Result diagrams: 12/31/20 04:50 12/31/20 04:50 Labs: Lab Results 12/30/20 12/30/20 12/30/20 Range/Units 10:53 10:54 10:54 WBC 19.6 H (4.5-11.0) X10^3/uL RBC 3.83 L (4.5-5.9) X10^6/uL Hgb 10.8 L (13.5-17.5) g/dL Hct 33.1 L (41-53) % MCV 86.5 (80-100) fL MCH 28.3 (26-34) PG MCHC 32.8 (30-36) % RDW 15.6 H (11.6-14.8) % Plt Count 607 H (150-400) X10^3/uL Neut % (Auto) 82.5 H (50-75) % Lymph % (Auto) 5.2 L (25-40) % [place] % (Auto) 10.6 (3-14) % Eos % (Auto) 1.3 L (2-4) % Baso % (Auto) 0.4 (0-2) % Neut # (Auto) 67361 H (8168-6021) /uL Lymph # (Auto) 1000 L (4756-9510) /uL [place] # (Auto) 2100 H (0-900) /uL Eos # (Auto) 200 (0-450) /uL Baso # (Auto) 100 (0-100) /uL D-Dimer 636 H (<230) ng/mL Sodium 140 (137-145) mmol/L Potassium 6.2 H (3.4-5.1) mmol/L Chloride 117 H (98-107) mmol/L Carbon Dioxide 12 L (22-32) mmol/L BUN 71 H (9-20) mg/dL Creatinine 5.22 H (0.66-1.25) mg/dL Estimated GFR 11.3 L (>60) mL/min BUN/Creatinine Ratio 13.6 (6-22) Glucose 179 H (80-110) mg/dL Lactate (0.7-2.1) mmol/L Calcium 9.7 (8.4-10.2) mg/dL Total Bilirubin 0.3 (0.2-1.3) mg/dL AST 11 L (17-59) IU/L ALT 10 (<50) IU/L Alkaline Phosphatase 111 (38-126) U/L Total Creatine Kinase < 20 L (55-170) U/L CK-MB (CK-2) TNP CK-MB (CK-2) Rel Index TNP Troponin I < 0.012 (0.01-0.034) ng/mL NT-Pro-B Natriuret Pep 1820 H (<125) pg/mL Total Protein 7.2 (6.3-8.2) g/dL Albumin 3.6 (3.5-5.0) g/dL Globulin 3.6 (1.7-4.1) g/dL Albumin/Globulin Ratio 1.0 (1.0-2.8) Procalcitonin 0.85 H (<0.5) ng/mL Urine Color Urine Appearance Urine pH (4.5-8.0) Ur Specific [place] (1.000-1.035) Urine Protein (Negative) Urine Glucose (UA) (Negative) g/dL Urine Ketones (NEGATIVE) Urine Occult Blood (Negative) Urine Nitrate (Negative) Urine Bilirubin (NEGATIVE) Urine Urobilinogen (0.2) E.U./dL Ur Leukocyte Esterase (NEGATIVE) Urine RBC (0-5/HPF) Urine WBC (0-5/HPF) Amorphous Sediment Urine Bacteria (None) Ur Culture Indicated? SARS-CoV-2 (PCR) (Negative) 12/30/20 12/30/20 12/30/20 Range/Units 10:54 10:59 12:15 WBC (4.5-11.0) X10^3/uL RBC (4.5-5.9) X10^6/uL Hgb (13.5-17.5) g/dL Hct (41-53) % MCV (80-100) fL MCH (26-34) PG MCHC (30-36) % RDW (11.6-14.8) % Plt Count (150-400) X10^3/uL Neut % (Auto) (50-75) % Lymph % (Auto) (25-40) % [place] % (Auto) (3-14) % Eos % (Auto) (2-4) % Baso % (Auto) (0-2) % Neut # (Auto) (0401-4993) /uL Lymph # (Auto) (8651-9006) /uL [place] # (Auto) (0-900) /uL Eos # (Auto) (0-450) /uL Baso # (Auto) (0-100) /uL D-Dimer (<230) ng/mL Sodium (137-145) mmol/L Potassium (3.4-5.1) mmol/L Chloride (98-107) mmol/L Carbon Dioxide (22-32) mmol/L BUN (9-20) mg/dL Creatinine (0.66-1.25) mg/dL Estimated GFR (>60) mL/min BUN/Creatinine Ratio (6-22) Glucose (80-110) mg/dL Lactate 0.6 L (0.7-2.1) mmol/L Calcium (8.4-10.2) mg/dL Total Bilirubin (0.2-1.3) mg/dL AST (17-59) IU/L ALT (<50) IU/L Alkaline Phosphatase (38-126) U/L Total Creatine Kinase (55-170) U/L CK-MB (CK-2) CK-MB (CK-2) Rel Index Troponin I (0.01-0.034) ng/mL NT-Pro-B Natriuret Pep (<125) pg/mL Total Protein (6.3-8.2) g/dL Albumin (3.5-5.0) g/dL Globulin (1.7-4.1) g/dL Albumin/Globulin Ratio (1.0-2.8) Procalcitonin (<0.5) ng/mL Urine Color Red Urine Appearance Cloudy Urine pH 6.0 (4.5-8.0) Ur Specific [place] 1.015 (1.000-1.035) Urine Protein 3+ H (Negative) Urine Glucose (UA) Trace H (Negative) g/dL Urine Ketones Negative (NEGATIVE) Urine Occult Blood 3+ H (Negative) Urine Nitrate Positive H (Negative) Urine Bilirubin Negative (NEGATIVE) Urine Urobilinogen 0.2 (0.2) E.U./dL Ur Leukocyte Esterase 3+ H (NEGATIVE) Urine RBC 10-30/hpf H (0-5/HPF) Urine WBC 5-10/hpf H (0-5/HPF) Amorphous Sediment 1+ Urine Bacteria None seen (None) Ur Culture Indicated? Specimen cultured SARS-CoV-2 (PCR) Negative (Negative) 12/30/20 12/30/20 12/30/20 Range/Units 14:40 14:40 20:43 WBC 21.3 H (4.5-11.0) X10^3/uL RBC 3.47 L (4.5-5.9) X10^6/uL Hgb 9.7 L (13.5-17.5) g/dL Hct 29.8 L (41-53) % MCV 85.9 (80-100) fL MCH 28.0 (26-34) PG MCHC 32.6 (30-36) % RDW 15.8 H (11.6-14.8) % Plt Count 622 H (150-400) X10^3/uL Neut % (Auto) 83.0 H (50-75) % Lymph % (Auto) 4.1 L (25-40) % [place] % (Auto) 10.6 (3-14) % Eos % (Auto) 2.0 (2-4) % Baso % (Auto) 0.3 (0-2) % Neut # (Auto) 00431 H (5533-3660) /uL Lymph # (Auto) 900 L (3686-3079) /uL [place] # (Auto) 2300 H (0-900) /uL Eos # (Auto) 400 (0-450) /uL Baso # (Auto) 100 (0-100) /uL D-Dimer (<230) ng/mL Sodium 142 (137-145) mmol/L Potassium 5.6 H (3.4-5.1) mmol/L Chloride 119 H (98-107) mmol/L Carbon Dioxide 15 L (22-32) mmol/L BUN 69 H (9-20) mg/dL Creatinine 4.75 H (0.66-1.25) mg/dL Estimated GFR 12.6 L (>60) mL/min BUN/Creatinine Ratio 14.5 (6-22) Glucose 216 H (80-110) mg/dL Lactate 1.3 (0.7-2.1) mmol/L Calcium 9.2 (8.4-10.2) mg/dL Total Bilirubin (0.2-1.3) mg/dL AST (17-59) IU/L ALT (<50) IU/L Alkaline Phosphatase (38-126) U/L Total Creatine Kinase (55-170) U/L CK-MB (CK-2) CK-MB (CK-2) Rel Index Troponin I (0.01-0.034) ng/mL NT-Pro-B Natriuret Pep (<125) pg/mL Total Protein (6.3-8.2) g/dL Albumin (3.5-5.0) g/dL Globulin (1.7-4.1) g/dL Albumin/Globulin Ratio (1.0-2.8) Procalcitonin (<0.5) ng/mL Urine Color Urine Appearance Urine pH (4.5-8.0) Ur Specific [place] (1.000-1.035) Urine Protein (Negative) Urine Glucose (UA) (Negative) g/dL Urine Ketones (NEGATIVE) Urine Occult Blood (Negative) Urine Nitrate (Negative) Urine Bilirubin (NEGATIVE) Urine Urobilinogen (0.2) E.U./dL Ur Leukocyte Esterase (NEGATIVE) Urine RBC (0-5/HPF) Urine WBC (0-5/HPF) Amorphous Sediment Urine Bacteria (None) Ur Culture Indicated? SARS-CoV-2 (PCR) (Negative) 12/30/20 12/31/20 12/31/20 Range/Units 20:43 00:48 04:50 WBC 18.6 H (4.5-11.0) X10^3/uL RBC 3.09 L (4.5-5.9) X10^6/uL Hgb 8.6 L (13.5-17.5) g/dL Hct 26.5 L (41-53) % MCV 85.8 (80-100) fL MCH 27.8 (26-34) PG MCHC 32.4 (30-36) % RDW 15.3 H (11.6-14.8) % Plt Count 528 H (150-400) X10^3/uL Neut % (Auto) 81.6 H (50-75) % Lymph % (Auto) 4.9 L (25-40) % [place] % (Auto) 10.3 (3-14) % Eos % (Auto) 2.6 (2-4) % Baso % (Auto) 0.6 (0-2) % Neut # (Auto) 16956 H (8258-2918) /uL Lymph # (Auto) 900 L (8490-9759) /uL [place] # (Auto) 1900 H (0-900) /uL Eos # (Auto) 500 H (0-450) /uL Baso # (Auto) 100 (0-100) /uL D-Dimer (<230) ng/mL Sodium 141 151 H D (137-145) mmol/L Potassium 4.6 4.0 (3.4-5.1) mmol/L Chloride 114 H 116 H (98-107) mmol/L Carbon Dioxide 19 L 32 (22-32) mmol/L BUN 61 H 57 H (9-20) mg/dL Creatinine 4.44 H 3.66 H (0.66-1.25) mg/dL Estimated GFR 13.6 L 17.0 L (>60) mL/min BUN/Creatinine Ratio 13.7 15.6 (6-22) Glucose 311 H 219 H (80-110) mg/dL Lactate (0.7-2.1) mmol/L Calcium 8.2 L 6.7 L (8.4-10.2) mg/dL Total Bilirubin (0.2-1.3) mg/dL AST (17-59) IU/L ALT (<50) IU/L Alkaline Phosphatase (38-126) U/L Total Creatine Kinase (55-170) U/L CK-MB (CK-2) CK-MB (CK-2) Rel Index Troponin I (0.01-0.034) ng/mL NT-Pro-B Natriuret Pep (<125) pg/mL Total Protein (6.3-8.2) g/dL Albumin (3.5-5.0) g/dL Globulin (1.7-4.1) g/dL Albumin/Globulin Ratio (1.0-2.8) Procalcitonin (<0.5) ng/mL Urine Color Urine Appearance Urine pH (4.5-8.0) Ur Specific [place] (1.000-1.035) Urine Protein (Negative) Urine Glucose (UA) (Negative) g/dL Urine Ketones (NEGATIVE) Urine Occult Blood (Negative) Urine Nitrate (Negative) Urine Bilirubin (NEGATIVE) Urine Urobilinogen (0.2) E.U./dL Ur Leukocyte Esterase (NEGATIVE) Urine RBC (0-5/HPF) Urine WBC (0-5/HPF) Amorphous Sediment Urine Bacteria (None) Ur Culture Indicated? SARS-CoV-2 (PCR) (Negative) 12/31/20 Range/Units 04:50 WBC (4.5-11.0) X10^3/uL RBC (4.5-5.9) X10^6/uL Hgb (13.5-17.5) g/dL Hct (41-53) % MCV (80-100) fL MCH (26-34) PG MCHC (30-36) % RDW (11.6-14.8) % Plt Count (150-400) X10^3/uL Neut % (Auto) (50-75) % Lymph % (Auto) (25-40) % [place] % (Auto) (3-14) % Eos % (Auto) (2-4) % Baso % (Auto) (0-2) % Neut # (Auto) (9519-6219) /uL Lymph # (Auto) (0823-5519) /uL [place] # (Auto) (0-900) /uL Eos # (Auto) (0-450) /uL Baso # (Auto) (0-100) /uL D-Dimer (<230) ng/mL Sodium 145 (137-145) mmol/L Potassium 4.5 (3.4-5.1) mmol/L Chloride 117 H (98-107) mmol/L Carbon Dioxide 22 (22-32) mmol/L BUN 60 H (9-20) mg/dL Creatinine 4.23 H (0.66-1.25) mg/dL Estimated GFR 14.4 L (>60) mL/min BUN/Creatinine Ratio 14.2 (6-22) Glucose 154 H (80-110) mg/dL Lactate (0.7-2.1) mmol/L Calcium 8.1 L (8.4-10.2) mg/dL Total Bilirubin (0.2-1.3) mg/dL AST (17-59) IU/L ALT (<50) IU/L Alkaline Phosphatase (38-126) U/L Total Creatine Kinase (55-170) U/L CK-MB (CK-2) CK-MB (CK-2) Rel Index Troponin I (0.01-0.034) ng/mL NT-Pro-B Natriuret Pep (<125) pg/mL Total Protein (6.3-8.2) g/dL Albumin (3.5-5.0) g/dL Globulin (1.7-4.1) g/dL Albumin/Globulin Ratio (1.0-2.8) Procalcitonin (<0.5) ng/mL Urine Color Urine Appearance Urine pH (4.5-8.0) Ur Specific [place] (1.000-1.035) Urine Protein (Negative) Urine Glucose (UA) (Negative) g/dL Urine Ketones (NEGATIVE) Urine Occult Blood (Negative) Urine Nitrate (Negative) Urine Bilirubin (NEGATIVE) Urine Urobilinogen (0.2) E.U./dL Ur Leukocyte Esterase (NEGATIVE) Urine RBC (0-5/HPF) Urine WBC (0-5/HPF) Amorphous Sediment Urine Bacteria (None) Ur Culture Indicated? SARS-CoV-2 (PCR) (Negative) Imaging Data CT scan - abdomen/pelvis: Radiologist's Impression: [place], [place] [address]CT Scan ReportSigned Patient: Maico Downs#: [id number]: 1960Acct:[id number]/Sex: 60 / MDate of Service: 12/30/20Loc: EDAccession Number: [id number] Procedure: CT kidney ureter bladder (KUB) Ordering Provider: Taylor Mcbride D.O. PROCEDURE: CT KIDNEY URETER BLADDER (KUB) INDICATIONS: hematuria, tachycardia TECHNIQUE: Axial sections were acquired from the lung bases to the pubic symphysis. Coronal and sagittal reformats were performed. For radiation dose reduction, the following was used: automated exposure control, adjustment of mA and/or kV according to patient size. COMPARISON:[facility], CT, CT KUB, 11/17/2019, 1:53. FINDINGS: Lower thorax: The lung bases are clear. Heart size normal. Small pericardial effusion measures up to 1.4 cm. No hiatal hernia. Minimal bibasilar atelectasis greater on the right. Liver: Normal in size and attenuation. No contour deformity present. Biliary system: No calcified cholelithiasis or pericholecystic inflammation. No intra or extrahepatic bile duct dilatation. Pancreas: Unremarkable without mass or inflammation evident. Spleen: Normal in size and density. Adrenals: Normal morphology and density. Reproductive system: Unremarkable as visualized. Urinary system: There is moderate bilateral hydronephrosis and hydroureter without calcified obstructing lesion throughout the exam, similar to the prior exam. There is smooth generalized bladder wall thickening, however, the bladder is not distended. Prostate is unremarkable. Gastrointestinal system: Moderate fecal debris throughout the colon rectum without obstruction. Appendix: No findings to suggest acute appendicitis. Peritoneal spaces: Mild retroperitoneal periaortic lymphadenopathy. There is a left periaortic node measuring 1.5 cm in short axis, previously 1.0 cm. Additional smaller nonenlarged retroperitoneal lymph nodes noted. No free air. No free fluid. Vasculature: Aortic atherosclerotic vascular calcification noted without evidence of aneurysm. Musculoskeletal: Multilevel degenerative disc disease and arthropathy in the lower lumbar spine is similar to the prior. IMPRESSION: 1. Persistent bilateral moderate hydronephrosis and hydroureter without calcified obstructing lesion. Bladder is nondistended and shows diffuse bladder wall thickening. Differential possibilities include chronic bladder outlet obstruction, chronic infection and less likely neoplastic obstruction. 2. Enlarged retroperitoneal periaortic lymph node now measures 1.5 cm in short axis, previously 1.0 cm 3. Small pericardial effusion measures 1.4 cm in thickness anteriorly. Approved by: Jose Bravo M.D. on 12/30/2020 at 10:49 Chest x-ray: Radiologist's Impression: [address] [id number] ReportSigned Patient: Maico Downs#: [id number]: 1960Acct:[id number]/Sex: 60 / MDate of Service: 12/30/20Loc: EDAccession Number: [id number] Procedure: XR chest 1V Ordering Provider: Taylor Mcbride D.O. PROCEDURE: XR CHEST 1V INDICATIONS: tachycardia, hematuria TECHNIQUE: One view of the chest was acquired. COMPARISON: [facility], XR CHEST 1 VIEW, 06/19/2019, 17:50. FINDINGS: Surgical changes and devices: None. Lungs and pleura: Lungs are clear. No pleural effusions or pneumothorax. Mediastinum: Mediastinal contours appear normal. Heart size is normal. Bones and chest wall: No suspicious bony lesions. Overlying soft tissues appear unremarkable. IMPRESSION: No acute cardiopulmonary disease. Dictated by: Aki Steele M.D. on 12/30/2020 at 11:20 Approved by: Aki Steele M.D. on 12/30/2020 at 11:21 post PICC: Radiologist's Impression: [address] [id number] ReportSigned Patient: Maico DownsMR#: [id number]: 1960Acct:[id number]/Sex: 60 / MDate of Service: 12/30/20Loc: EDAccession Number: [id number] Procedure: XR chest for PICC 1V Ordering Provider: Taylor Mcbride D.O. PROCEDURE: XR CHEST FOR PICC 1V INDICATIONS: line placement [facility], 11:05. FINDINGS: PICC was placed by the intravenous therapy team from the left side. Fluoroscopic spot film demonstrates the tip of PICC projecting to the area of SVC. IMPRESSION: Tip of PICC projects to the area of SVC. Dictated by: Aki Steele M.D. on 12/30/2020 at 16:39 Approved by: Aki Steele M.D. on 12/30/2020 at 16:40 ECG Data Interpretation: EKG 1. ST elevation to 3 in AVF. Peaked T-waves in lateral leads. Patient does have new changes from prior. EKG 2. EKG appears similar to prior. MDM Narrative Medical decision making narrative: This is a 60-year-old male who comes with complaint of hematuria that started yesterday. Patient had a urinalysis which was obtained on 12/29 with urine culture pending. Patient comes in with his only complaint being hematuria. Is tachycardic with soft blood pressure in the 100 systolic range. He has pressure was improved to the 120s for some time but then continued to decrease over time. Patient himself has been asymptomatic. He does have leukocytosis, anemia which appears stable, platelets at 607 and a positive procalcitonin. Patient is and acute on chronic renal failure with a creatinine of 5.2 to and was in the 3 range on his last in October. He is hypokalemic with a potassium of 6.2, acidotic with a CO2 of 12 and a BUN of 71. Patient LFTs do not show major abnormality. Troponin is negative and he has not had any chest pain or shortness breath. BNP is elevated but in the setting of renal failure this may be falsely elevated. PCR COVID is negative. From the as well as today is positive for nitrates, trace glucose, 3+ leuks with 10-30 rbc's and 5-10 wbc's. Blood cultures were obtained and patient had CT KUB which showed chronic bilateral hydro with no other acute intra-abdominal changes. Patient did have little bit of a pericardial effusion and was noted to have some ST changes that appeared new on his EKG but had negative troponin with no chest pain, no shortness of breath. Patient was ultimately given fluid bolus 30 cc/kilos and his urine output improved over time to 0.5 cc/kilos by 7:00 p.m.. Pressors were initiated as patient continued to have a low BP he has BPs. And he was initiated on isotonic bicarb D5W with 3 amps of bicarb at 150 mL per hour as per his marketer Dr. Neil. They did agree that patient would likely benefit from transfer for potential dialysis at this time and have been awaiting bed placement. We have contacted [facility] [place], [facility], as well the [place] [facility] coordination center. Patient is wait listed had several facilities. Patient signed out to Dr. Fung while awaiting placement. I received sign-out from Dr. Mcbride. I performed independent evaluation and seen patient myself. Currently septic shock with UTI on Levophed. He has now received 4 L of urine fluid did start urinating. Currently on a bicarb drip per Nephrology. There was an increasing creatinine from 3-5 but now seems to be improving with fluids. Multiple phone calls to facilities have been made patient needs higher level of care with worsening creatinine nephrology and dialysis not available at this hospital. Blood pressure increased to the 140s Levophed was turned off. Suddenly became very tachycardic in the 130 appears to be sinus rhythm with help any new changes he is having PVCs. He is given a 500 cc bolus heart rate improves he is afebrile. Continue to wait for bed placement on multiple lists including [facility], [facility], [facility], Patient signed out to Dr. mcbride. Patient signed out back to myself. Patient's urine output has improved somewhat overnight. His pressors were stopped, his fluids were also stopped and he has not had any fluids for about 4 hours. He has continued to have appropriate output is eating and drinking. His renal function does appear to have improved. His electrolytes are also improving. Urine culture is still pending as are blood cultures. Hemoglobin has dropped but he had significant amounts of fluids and I suspect this is likely dilutional. Case was discussed with Dr. Escoto who is covering for Dr. Neil. He is quite happy with patient's change in his creatinine overnight as well as his electrolytes. He recommends at this time an assist at 75-100 mL per hour. Continue to monitor and at this time may not require transfer. I spoke with Dr. Lopez who kindly accepts to patient here at [facility]. <Alesia Fung, - Last Filed: 12/31/20 21:36> Lab Data Labs: Lab Results 12/30/20 12/30/20 12/30/20 Range/Units 10:53 10:54 10:54 WBC 19.6 H (4.5-11.0) X10^3/uL RBC 3.83 L (4.5-5.9) X10^6/uL Hgb 10.8 L (13.5-17.5) g/dL Hct 33.1 L (41-53) % MCV 86.5 (80-100) fL MCH 28.3 (26-34) PG MCHC 32.8 (30-36) % RDW 15.6 H (11.6-14.8) % Plt Count 607 H (150-400) X10^3/uL Neut % (Auto) 82.5 H (50-75) % Lymph % (Auto) 5.2 L (25-40) % [place] % (Auto) 10.6 (3-14) % Eos % (Auto) 1.3 L (2-4) % Baso % (Auto) 0.4 (0-2) % Neut # (Auto) 37782 H (4471-8176) /uL Lymph # (Auto) 1000 L (9787-3469) /uL [place] # (Auto) 2100 H (0-900) /uL Eos # (Auto) 200 (0-450) /uL Baso # (Auto) 100 (0-100) /uL D-Dimer 636 H (<230) ng/mL Sodium 140 (137-145) mmol/L Potassium 6.2 H (3.4-5.1) mmol/L Chloride 117 H (98-107) mmol/L Carbon Dioxide 12 L (22-32) mmol/L BUN 71 H (9-20) mg/dL Creatinine 5.22 H (0.66-1.25) mg/dL Estimated GFR 11.3 L (>60) mL/min BUN/Creatinine Ratio 13.6 (6-22) Glucose 179 H (80-110) mg/dL Lactate (0.7-2.1) mmol/L Calcium 9.7 (8.4-10.2) mg/dL Total Bilirubin 0.3 (0.2-1.3) mg/dL AST 11 L (17-59) IU/L ALT 10 (<50) IU/L Alkaline Phosphatase 111 (38-126) U/L Total Creatine Kinase < 20 L (55-170) U/L CK-MB (CK-2) TNP CK-MB (CK-2) Rel Index TNP Troponin I < 0.012 (0.01-0.034) ng/mL NT-Pro-B Natriuret Pep 1820 H (<125) pg/mL Total Protein 7.2 (6.3-8.2) g/dL Albumin 3.6 (3.5-5.0) g/dL Globulin 3.6 (1.7-4.1) g/dL Albumin/Globulin Ratio 1.0 (1.0-2.8) Procalcitonin 0.85 H (<0.5) ng/mL Urine Color Urine Appearance Urine pH (4.5-8.0) Ur Specific [place] (1.000-1.035) Urine Protein (Negative) Urine Glucose (UA) (Negative) g/dL Urine Ketones (NEGATIVE) Urine Occult Blood (Negative) Urine Nitrate (Negative) Urine Bilirubin (NEGATIVE) Urine Urobilinogen (0.2) E.U./dL Ur Leukocyte Esterase (NEGATIVE) Urine RBC (0-5/HPF) Urine WBC (0-5/HPF) Amorphous Sediment Urine Bacteria (None) Ur Culture Indicated? SARS-CoV-2 (PCR) (Negative) 12/30/20 12/30/20 12/30/20 Range/Units 10:54 10:59 12:15 WBC (4.5-11.0) X10^3/uL RBC (4.5-5.9) X10^6/uL Hgb (13.5-17.5) g/dL Hct (41-53) % MCV (80-100) fL MCH (26-34) PG MCHC (30-36) % RDW (11.6-14.8) % Plt Count (150-400) X10^3/uL Neut % (Auto) (50-75) % Lymph % (Auto) (25-40) % [place] % (Auto) (3-14) % Eos % (Auto) (2-4) % Baso % (Auto) (0-2) % Neut # (Auto) (0067-2751) /uL Lymph # (Auto) (2206-5302) /uL [place] # (Auto) (0-900) /uL Eos # (Auto) (0-450) /uL Baso # (Auto) (0-100) /uL D-Dimer (<230) ng/mL Sodium (137-145) mmol/L Potassium (3.4-5.1) mmol/L Chloride (98-107) mmol/L Carbon Dioxide (22-32) mmol/L BUN (9-20) mg/dL Creatinine (0.66-1.25) mg/dL Estimated GFR (>60) mL/min BUN/Creatinine Ratio (6-22) Glucose (80-110) mg/dL Lactate 0.6 L (0.7-2.1) mmol/L Calcium (8.4-10.2) mg/dL Total Bilirubin (0.2-1.3) mg/dL AST (17-59) IU/L ALT (<50) IU/L Alkaline Phosphatase (38-126) U/L Total Creatine Kinase (55-170) U/L CK-MB (CK-2) CK-MB (CK-2) Rel Index Troponin I (0.01-0.034) ng/mL NT-Pro-B Natriuret Pep (<125) pg/mL Total Protein (6.3-8.2) g/dL Albumin (3.5-5.0) g/dL Globulin (1.7-4.1) g/dL Albumin/Globulin Ratio (1.0-2.8) Procalcitonin (<0.5) ng/mL Urine Color Red Urine Appearance Cloudy Urine pH 6.0 (4.5-8.0) Ur Specific [place] 1.015 (1.000-1.035) Urine Protein 3+ H (Negative) Urine Glucose (UA) Trace H (Negative) g/dL Urine Ketones Negative (NEGATIVE) Urine Occult Blood 3+ H (Negative) Urine Nitrate Positive H (Negative) Urine Bilirubin Negative (NEGATIVE) Urine Urobilinogen 0.2 (0.2) E.U./dL Ur Leukocyte Esterase 3+ H (NEGATIVE) Urine RBC 10-30/hpf H (0-5/HPF) Urine WBC 5-10/hpf H (0-5/HPF) Amorphous Sediment 1+ Urine Bacteria None seen (None) Ur Culture Indicated? Specimen cultured SARS-CoV-2 (PCR) Negative (Negative) 12/30/20 12/30/20 12/30/20 Range/Units 14:40 14:40 20:43 WBC 21.3 H (4.5-11.0) X10^3/uL RBC 3.47 L (4.5-5.9) X10^6/uL Hgb 9.7 L (13.5-17.5) g/dL Hct 29.8 L (41-53) % MCV 85.9 (80-100) fL MCH 28.0 (26-34) PG MCHC 32.6 (30-36) % RDW 15.8 H (11.6-14.8) % Plt Count 622 H (150-400) X10^3/uL Neut % (Auto) 83.0 H (50-75) % Lymph % (Auto) 4.1 L (25-40) % [place] % (Auto) 10.6 (3-14) % Eos % (Auto) 2.0 (2-4) % Baso % (Auto) 0.3 (0-2) % Neut # (Auto) 01879 H (9492-1241) /uL Lymph # (Auto) 900 L (1719-4608) /uL [place] # (Auto) 2300 H (0-900) /uL Eos # (Auto) 400 (0-450) /uL Baso # (Auto) 100 (0-100) /uL D-Dimer (<230) ng/mL Sodium 142 (137-145) mmol/L Potassium 5.6 H (3.4-5.1) mmol/L Chloride 119 H (98-107) mmol/L Carbon Dioxide 15 L (22-32) mmol/L BUN 69 H (9-20) mg/dL Creatinine 4.75 H (0.66-1.25) mg/dL Estimated GFR 12.6 L (>60) mL/min BUN/Creatinine Ratio 14.5 (6-22) Glucose 216 H (80-110) mg/dL Lactate 1.3 (0.7-2.1) mmol/L Calcium 9.2 (8.4-10.2) mg/dL Total Bilirubin (0.2-1.3) mg/dL AST (17-59) IU/L ALT (<50) IU/L Alkaline Phosphatase (38-126) U/L Total Creatine Kinase (55-170) U/L CK-MB (CK-2) CK-MB (CK-2) Rel Index Troponin I (0.01-0.034) ng/mL NT-Pro-B Natriuret Pep (<125) pg/mL Total Protein (6.3-8.2) g/dL Albumin (3.5-5.0) g/dL Globulin (1.7-4.1) g/dL Albumin/Globulin Ratio (1.0-2.8) Procalcitonin (<0.5) ng/mL Urine Color Urine Appearance Urine pH (4.5-8.0) Ur Specific [place] (1.000-1.035) Urine Protein (Negative) Urine Glucose (UA) (Negative) g/dL Urine Ketones (NEGATIVE) Urine Occult Blood (Negative) Urine Nitrate (Negative) Urine Bilirubin (NEGATIVE) Urine Urobilinogen (0.2) E.U./dL Ur Leukocyte Esterase (NEGATIVE) Urine RBC (0-5/HPF) Urine WBC (0-5/HPF) Amorphous Sediment Urine Bacteria (None) Ur Culture Indicated? SARS-CoV-2 (PCR) (Negative) 12/30/20 12/31/20 12/31/20 Range/Units 20:43 00:48 04:50 WBC 18.6 H (4.5-11.0) X10^3/uL RBC 3.09 L (4.5-5.9) X10^6/uL Hgb 8.6 L (13.5-17.5) g/dL Hct 26.5 L (41-53) % MCV 85.8 (80-100) fL MCH 27.8 (26-34) PG MCHC 32.4 (30-36) % RDW 15.3 H (11.6-14.8) % Plt Count 528 H (150-400) X10^3/uL Neut % (Auto) 81.6 H (50-75) % Lymph % (Auto) 4.9 L (25-40) % Kershaw % (Auto) 10.3 (3-14) % Eos % (Auto) 2.6 (2-4) % Baso % (Auto) 0.6 (0-2) % Neut # (Auto) 83433 H (8711-3889) /uL Lymph # (Auto) 900 L (4413-7163) /uL Kershaw # (Auto) 1900 H (0-900) /uL Eos # (Auto) 500 H (0-450) /uL Baso # (Auto) 100 (0-100) /uL D-Dimer (<230) ng/mL Sodium 141 151 H D (137-145) mmol/L Potassium 4.6 4.0 (3.4-5.1) mmol/L Chloride 114 H 116 H (98-107) mmol/L Carbon Dioxide 19 L 32 (22-32) mmol/L BUN 61 H 57 H (9-20) mg/dL Creatinine 4.44 H 3.66 H (0.66-1.25) mg/dL Estimated GFR 13.6 L 17.0 L (>60) mL/min BUN/Creatinine Ratio 13.7 15.6 (6-22) Glucose 311 H 219 H (80-110) mg/dL Lactate (0.7-2.1) mmol/L Calcium 8.2 L 6.7 L (8.4-10.2) mg/dL Total Bilirubin (0.2-1.3) mg/dL AST (17-59) IU/L ALT (<50) IU/L Alkaline Phosphatase (38-126) U/L Total Creatine Kinase (55-170) U/L CK-MB (CK-2) CK-MB (CK-2) Rel Index Troponin I (0.01-0.034) ng/mL NT-Pro-B Natriuret Pep (<125) pg/mL Total Protein (6.3-8.2) g/dL Albumin (3.5-5.0) g/dL Globulin (1.7-4.1) g/dL Albumin/Globulin Ratio (1.0-2.8) Procalcitonin (<0.5) ng/mL Urine Color Urine Appearance Urine pH (4.5-8.0) Ur Specific Paris (1.000-1.035) Urine Protein (Negative) Urine Glucose (UA) (Negative) g/dL Urine Ketones (NEGATIVE) Urine Occult Blood (Negative) Urine Nitrate (Negative) Urine Bilirubin (NEGATIVE) Urine Urobilinogen (0.2) E.U./dL Ur Leukocyte Esterase (NEGATIVE) Urine RBC (0-5/HPF) Urine WBC (0-5/HPF) Amorphous Sediment Urine Bacteria (None) Ur Culture Indicated? SARS-CoV-2 (PCR) (Negative) 12/31/20 Range/Units 04:50 WBC (4.5-11.0) X10^3/uL RBC (4.5-5.9) X10^6/uL Hgb (13.5-17.5) g/dL Hct (41-53) % MCV (80-100) fL MCH (26-34) PG MCHC (30-36) % RDW (11.6-14.8) % Plt Count (150-400) X10^3/uL Neut % (Auto) (50-75) % Lymph % (Auto) (25-40) % Kershaw % (Auto) (3-14) % Eos % (Auto) (2-4) % Baso % (Auto) (0-2) % Neut # (Auto) (3460-3967) /uL Lymph # (Auto) (1164-1744) /uL Kershaw # (Auto) (0-900) /uL Eos # (Auto) (0-450) /uL Baso # (Auto) (0-100) /uL D-Dimer (<230) ng/mL Sodium 145 (137-145) mmol/L Potassium 4.5 (3.4-5.1) mmol/L Chloride 117 H (98-107) mmol/L Carbon Dioxide 22 (22-32) mmol/L BUN 60 H (9-20) mg/dL Creatinine 4.23 H (0.66-1.25) mg/dL Estimated GFR 14.4 L (>60) mL/min BUN/Creatinine Ratio 14.2 (6-22) Glucose 154 H (80-110) mg/dL Lactate (0.7-2.1) mmol/L Calcium 8.1 L (8.4-10.2) mg/dL Total Bilirubin (0.2-1.3) mg/dL AST (17-59) IU/L ALT (<50) IU/L Alkaline Phosphatase (38-126) U/L Total Creatine Kinase (55-170) U/L CK-MB (CK-2) CK-MB (CK-2) Rel Index Troponin I (0.01-0.034) ng/mL NT-Pro-B Natriuret Pep (<125) pg/mL Total Protein (6.3-8.2) g/dL Albumin (3.5-5.0) g/dL Globulin (1.7-4.1) g/dL Albumin/Globulin Ratio (1.0-2.8) Procalcitonin (<0.5) ng/mL Urine Color Urine Appearance Urine pH (4.5-8.0) Ur Specific Paris (1.000-1.035) Urine Protein (Negative) Urine Glucose (UA) (Negative) g/dL Urine Ketones (NEGATIVE) Urine Occult Blood (Negative) Urine Nitrate (Negative) Urine Bilirubin (NEGATIVE) Urine Urobilinogen (0.2) E.U./dL Ur Leukocyte Esterase (NEGATIVE) Urine RBC (0-5/HPF) Urine WBC (0-5/HPF) Amorphous Sediment Urine Bacteria (None) Ur Culture Indicated? SARS-CoV-2 (PCR) (Negative) ECG Data Interpretation: EKG 1. ST elevation to 3 in AVF. Peaked T-waves in lateral leads. Patient does have new changes from prior. EKG 2. EKG appears similar to prior. EKG 3. Normal sinus rhythm 135 ST changes are similar to previous EKGs he does have PVCs noted MDM Narrative Medical decision making narrative: This is a 60-year-old male who comes with complaint of hematuria that started yesterday. Patient had a urinalysis which was obtained on 12/29 with urine culture pending. Patient comes in with his only complaint being hematuria. Is tachycardic with soft blood pressure in the 100 systolic range. He has pressure was improved to the 120s for some time but then continued to decrease over time. Patient himself has been asymptomatic. He does have leukocytosis, anemia which appears stable, platelets at 607 and a positive procalcitonin. Patient is and acute on chronic renal failure with a creatinine of 5.2 to and was in the 3 range on his last in October. He is hypokalemic with a potassium of 6.2, acidotic with a CO2 of 12 and a BUN of 71. Patient LFTs do not show major abnormality. Troponin is negative and he has not had any chest pain or shortness breath. BNP is elevated but in the setting of renal failure this may be falsely elevated. PCR COVID is negative. From the as well as today is positive for nitrates, trace glucose, 3+ leuks with 10-30 rbc's and 5-10 wbc's. Blood cultures were obtained and patient had CT KUB which showed chronic bilateral hydro with no other acute intra-abdominal changes. Patient did have little bit of a pericardial effusion and was noted to have some ST changes that appeared new on his EKG but had negative troponin with no chest pain, no shortness of breath. Patient was ultimately given fluid bolus 30 cc/kilos and his urine output improved over time to 0.5 cc/kilos by 7:00 p.m.. Pressors were initiated as patient continued to have a low BP he has BPs. And he was initiated on isotonic bicarb D5W with 3 amps of bicarb at 150 mL per hour as per his marketer Dr. Neil. They did agree that patient would likely benefit from transfer for potential dialysis at this time and have been awaiting bed placement. We have contacted [facility] [place], [facility], as well the [place] [facility]. Patient is wait listed had several facilities. Patient signed out to Dr. Fung while awaiting placement. JENNY I received sign-out from Dr. Mcbride. I performed independent evaluation and seen patient myself. Currently septic shock with UTI on Levophed. He has now received 4 L of urine fluid did start urinating. Currently on a bicarb drip per Nephrology. There was an increasing creatinine from 3-5 but now seems to be improving with fluids. Multiple phone calls to facilities have been made patient needs higher level of care with worsening creatinine nephrology and dialysis not available at this hospital. Blood pressure increased to the 140s Levophed was turned off. Suddenly became very tachycardic in the 130 appears to be sinus rhythm with help any new changes he is having PVCs. He is given a 500 cc bolus heart rate improves he is afebrile. Continue to wait for bed placement on multiple lists including [facility], [facility], [facility], [facility], Patient signed out to Dr. mcbride. Patient signed out back to myself. Patient's urine output has improved somewhat overnight. His pressors were stopped, his fluids were also stopped and he has not had any fluids for about 4 hours. He has continued to have appropriate output is eating and drinking. His renal function does appear to have improved. His electrolytes are also improving. Urine culture is still pending as are blood cultures. Hemoglobin has dropped but he had significant amounts of fluids and I suspect this is likely dilutional. Case was discussed with Dr. Escoto who is covering for Dr. Neil. He is quite happy with patient's change in his creatinine overnight as well as his electrolytes. He recommends at this time an assist at 75-100 mL per hour. Continue to monitor and at this time may not require transfer. I spoke with Dr. Lopez who kindly accepts to patient here at [facility]. Critical Care Time <Taylor Mcbride, DO - Last Filed: 12/31/20 19:07> Critical Care Time Critical Care Time: Yes Total Critical Care Time: 175 Attestation: The high probability of a clinically significant, sudden or life threatening deterioration of the [renal,cardiac] system(s) required my full and direct attention, intervention and personal management. The aggregate critical care time was [175] minutes. This time is in addition to time spent performing reported procedures but includes the following: [x] Data Review and interpretation [x] Patient assessment and monitoring of vital signs [x] Documentation [x] Medication orders and management Discharge Plan Departure Patient Disposition: Admitted As Inpatient Clinical Impression: Acute UTI, Sepsis, Acute on chronic kidney failure, Acute hyperkalemia Admit Date/Time: 12/31/20 08:47 Admit Provider: Lito Lopez
[2020-12-30 10:52] LABS: Add Manual Diff / Slide Review NO; Basophils Absolute Auto 100 /uL (0-100); Basophils Percent Auto 0.4 % (0-2); Eosinophils Absolute Auto 200 /uL (0-450); Eosinophils Percent Auto 1.3 % (2-4); Hematocrit 33.1 % (41-53); Hemoglobin 10.8 g/dL (13.5-17.5); Lymphocytes Absolute Auto 1000 /uL (1100-4500); Lymphocytes Percent Auto 5.2 % (25-40); Mean Corpuscular HGB Conc 32.8 % (30-36); Mean Corpuscular Hemoglobin 28.3 PG (26-34); Mean Corpuscular Volume 86.5 fL (80-100); Monocytes Absolute Auto 2100 /uL (0-900); Monocytes Percent Auto 10.6 % (3-14); Neutrophils Absolute Auto 16200 /uL (1500-7000); Neutrophils Percent Auto 82.5 % (50-75); Platelet Count 607 X10^3/uL (150-400); Red Blood Cell Count 3.83 X10^6/uL (4.5-5.9); Red Cell Distribution Width 15.6 % (11.6-14.8); White Blood Cell Count 19.6 X10^3/uL (4.5-11.0)
[2020-12-30 11:03] LABS: D Dimer 636 ng/mL (<230); Lactate (Lactic Acid) 0.6 mmol/L (0.7-2.1)
[2020-12-30 11:04] LABS: Alanine Aminotransferase 10 IU/L (<50); Albumin 3.6 g/dL (3.5-5.0); Alkaline Phosphatase 111 U/L (38-126); Aspartate Aminotransferase 11 IU/L (17-59); BUN Creatinine Ratio 13.6 (6-22); Bilirubin Total 0.3 mg/dL (0.2-1.3); Blood Urea Nitrogen 71 mg/dL (9-20); Calcium 9.7 mg/dL (8.4-10.2); Carbon Dioxide 12 mmol/L (22-32); Chloride 117 mmol/L (98-107); Creatine Kinase < 20 U/L (55-170); Estimated Glomerular Filt Rate 11.3 mL/min (>60); Globulin 3.6 g/dL (1.7-4.1); Glucose 179 mg/dL (80-110); HEMOLYSIS < 15 (0-50); Sodium 140 mmol/L (137-145); Total Protein 7.2 g/dL (6.3-8.2)
[2020-12-30 11:08] LABS: Potassium 6.2 mmol/L (3.4-5.1)
[2020-12-30 11:16] LABS: NT-proBNP (BNP-Adult 18+) 1820 pg/mL (<125); Troponin I < 0.012 ng/mL (0.01-0.034)
[2020-12-30 11:21] LABS: Procalcitonin 0.85 ng/mL (<0.5)
[2020-12-30] MEDS: PIPERACILLIN/TAZO 4.5 GM in SODIUM CHLORIDE 0.9% 100 ML 200 ML IV ×2 (11:40→22:11)
[2020-12-30] MEDS: SODIUM CHLORIDE 0.9% 1,000 ML 1000 ML IV ×2 (11:41→15:53)
[2020-12-30 11:53] LABS: COVID19 - ADMIT (NP swab/PCR) Negative (Negative)
[2020-12-30 12:16] LABS: Bacteria Urine None Seen
[2020-12-30 12:27] LABS: Appearance Urine UA CLOUDY; Bilirubin Urine UA NEGATIVE (NEGATIVE); Color Urine UA RED; Glucose Urine UA TRACE g/dL (Negative); Ketones Urine UA NEGATIVE (NEGATIVE); Leukocyte Esterase Urine UA 3+ (NEGATIVE); Nitrite Urine UA POSITIVE (Negative); Occult Blood Urine UA 3+ (Negative); Protein Urine UA 3+ (Negative); Specific Gravity Urine UA 1.015 (1.000-1.035); Urobilinogen Urine UA 0.2 E.U./dL (0.2)
[2020-12-30 12:37] LABS: Amorphous Sediment Urine 1+; RBC Urine 10-30/HPF (0-5/HPF); WBC Urine 5-10/HPF (0-5/HPF)
[2020-12-30] MEDS: SODIUM CHLORIDE 0.9% 943.47 ML IV (12:40)
[2020-12-30 12:52] LABS: Culture Indicated Urine Specimen Cultured
--- NOTE | 2020-12-30 13:26 | PC.NURSE ---
Care facility gave info for form maker Dr. Shay Neil at [facility]. phone [phone]
[2020-12-30] MEDS: SODIUM BICARB 8.4% SYRINGE 50 MEQ IV (13:48)
[2020-12-30] MEDS: INSULIN REGULAR 100 UNIT/ML 3 ML VIAL 10 UNIT IV (13:48)
[2020-12-30] MEDS: SODIUM POLYSTYRENE SULFON/SORB 15 GM/60 ML CUP 30 GM PO (13:48)
[2020-12-30] MEDS: DEXTROSE 50 % IN WATER 25 GM/50 ML SYRINGE IV (13:48)
[2020-12-30] MEDS: CALCIUM GLUCONATE 4.65 MEQ in SODIUM CHLORIDE 0.9% 50 ML 180 ML IV (13:48)
[2020-12-30] MEDS: SODIUM BICARB 8.4% VIAL 150 MEQ in DEXTROSE 5% WATER 1,000 ML IV ×2 (14:24→23:00)
[2020-12-30 14:58] LABS: BUN Creatinine Ratio 14.5 (6-22); Blood Urea Nitrogen 69 mg/dL (9-20); Calcium 9.2 mg/dL (8.4-10.2); Carbon Dioxide 15 mmol/L (22-32); Chloride 119 mmol/L (98-107); Estimated Glomerular Filt Rate 12.6 mL/min (>60); Glucose 216 mg/dL (80-110); HEMOLYSIS < 15 (0-50); Sodium 142 mmol/L (137-145)
[2020-12-30 15:00] LABS: Lactate (Lactic Acid) 1.3 mmol/L (0.7-2.1); Potassium 5.6 mmol/L (3.4-5.1)
[2020-12-30] MEDS: SODIUM CHLORIDE 0.9% 500 ML 1000 ML IV ×2 (15:09→22:56)
--- NOTE | 2020-12-30 16:31 | DI.RAD.S_ITS ---
PROCEDURE: XR CHEST FOR PICC 1V INDICATIONS: line placement COMPARISON: [facility], , XR CHEST 1V, 12/30/2020, 11:05. FINDINGS: PICC was placed by the intravenous therapy team from the left side. Fluoroscopic spot film demonstrates the tip of PICC projecting to the area of SVC. IMPRESSION: Tip of PICC projects to the area of SVC. Dictated by: Aki Steele M.D. on 12/30/2020 at 16:39 Approved by: Aki Steele M.D. on 12/30/2020 at 16:40
[2020-12-30] MEDS: NOREPINEPHRINE 4 MG in DEXTROSE 5% IN WATER 250 ML 30.48 ML IV (16:57)
[2020-12-30 20:59] LABS: Add Manual Diff / Slide Review NO; Basophils Absolute Auto 100 /uL (0-100); Basophils Percent Auto 0.3 % (0-2); Eosinophils Absolute Auto 400 /uL (0-450); Hematocrit 29.8 % (41-53); Hemoglobin 9.7 g/dL (13.5-17.5); Lymphocytes Absolute Auto 900 /uL (1100-4500); Lymphocytes Percent Auto 4.1 % (25-40); Mean Corpuscular HGB Conc 32.6 % (30-36); Mean Corpuscular Volume 85.9 fL (80-100); Monocytes Absolute Auto 2300 /uL (0-900); Monocytes Percent Auto 10.6 % (3-14); Neutrophils Absolute Auto 17700 /uL (1500-7000); Platelet Count 622 X10^3/uL (150-400); Red Blood Cell Count 3.47 X10^6/uL (4.5-5.9); Red Cell Distribution Width 15.8 % (11.6-14.8); White Blood Cell Count 21.3 X10^3/uL (4.5-11.0)
[2020-12-30 21:03] LABS: BUN Creatinine Ratio 13.7 (6-22); Blood Urea Nitrogen 61 mg/dL (9-20); Calcium 8.2 mg/dL (8.4-10.2); Carbon Dioxide 19 mmol/L (22-32); Chloride 114 mmol/L (98-107); Estimated Glomerular Filt Rate 13.6 mL/min (>60); Glucose 311 mg/dL (80-110); HEMOLYSIS < 15 (0-50); Potassium 4.6 mmol/L (3.4-5.1); Sodium 141 mmol/L (137-145)
[2020-12-30] MEDS: VANCOMYCIN 1,500 MG/300 ML PIGGYBACK 200 MG IV (22:52)
[2020-12-31] VITALS (47 sets, daily range): BP systolic 71–136; BP diastolic 41–77; PULSE 85–117; RESP 14–27; TEMP 36–36.8; O2SAT 93–99; BMI 32.5
[2020-12-31 01:20] LABS: BUN Creatinine Ratio 15.6 (6-22); Blood Urea Nitrogen 57 mg/dL (9-20); Calcium 6.7 mg/dL (8.4-10.2); Carbon Dioxide 32 mmol/L (22-32); Chloride 116 mmol/L (98-107); Glucose 219 mg/dL (80-110); HEMOLYSIS < 15 (0-50); Sodium 151 mmol/L (137-145)
[2020-12-31] MEDS: PIPERACILLIN/TAZO 2.25 GM in SODIUM CHLORIDE 0.9% 100 ML 200 ML IV (04:09)
[2020-12-31 05:02] LABS: Add Manual Diff / Slide Review NO; Basophils Absolute Auto 100 /uL (0-100); Basophils Percent Auto 0.6 % (0-2); Eosinophils Absolute Auto 500 /uL (0-450); Eosinophils Percent Auto 2.6 % (2-4); Hematocrit 26.5 % (41-53); Hemoglobin 8.6 g/dL (13.5-17.5); Lymphocytes Absolute Auto 900 /uL (1100-4500); Lymphocytes Percent Auto 4.9 % (25-40); Mean Corpuscular HGB Conc 32.4 % (30-36); Mean Corpuscular Hemoglobin 27.8 PG (26-34); Mean Corpuscular Volume 85.8 fL (80-100); Monocytes Absolute Auto 1900 /uL (0-900); Monocytes Percent Auto 10.3 % (3-14); Neutrophils Absolute Auto 15200 /uL (1500-7000); Neutrophils Percent Auto 81.6 % (50-75); Platelet Count 528 X10^3/uL (150-400); Red Blood Cell Count 3.09 X10^6/uL (4.5-5.9); Red Cell Distribution Width 15.3 % (11.6-14.8); White Blood Cell Count 18.6 X10^3/uL (4.5-11.0)
[2020-12-31 05:15] LABS: BUN Creatinine Ratio 14.2 (6-22); Blood Urea Nitrogen 60 mg/dL (9-20); Calcium 8.1 mg/dL (8.4-10.2); Carbon Dioxide 22 mmol/L (22-32); Chloride 117 mmol/L (98-107); Estimated Glomerular Filt Rate 14.4 mL/min (>60); Glucose 154 mg/dL (80-110); HEMOLYSIS < 15 (0-50); Potassium 4.5 mmol/L (3.4-5.1); Sodium 145 mmol/L (137-145)
[2020-12-31] MEDS: SODIUM CHLORIDE 0.9% 1,000 ML 250 ML IV (07:47)
[2020-12-31] MEDS: SODIUM CHLORIDE 0.9% 1,000 ML 100 ML IV ×2 (08:58→11:06)
--- NOTE | 2020-12-31 09:12 | PC.NURSE ---
I called [facility], [facility], [facility], and [facility] to cancel patient's bed wait list since he will be staying with us.
--- NOTE | 2020-12-31 10:17 | PC.NURSE ---
Day shift: Pt on unit at approx 1015.
[2020-12-31] MEDS: PIPERACILLIN/TAZO 3.375 GM in SODIUM CHLORIDE 0.9% 100 ML 25 ML IV ×2 (11:08→21:49)
--- NOTE | 2020-12-31 13:39 | PM.HP.1 ---
History of Present Illness History of Present Illness Date Patient Seen: 12/31/20 Time Patient Seen: 13:00 Date of Onset of Symptoms: 12/30/20 Chief complaint: Hematuria and tachycardia Narrative: Patient is a 60-year-old male with known history of multiple sclerosis, functional quadriplegia, neurogenic bladder, insulin-requiring type 2 diabetes, chronic kidney disease, chronic anemia who resides at [facility]. About a day ago he developed hematuria and tachycardia. UA was positive for nitritesWas sent to ED for additional evaluation. In the ED noted to be afebrile but tachycardic. He subsequently dropped his blood pressure into the 70's systolic requiring pressure support with Levophed in addition to volume resuscitation. Initial WBC 19.6 with left shift. He was in acute renal failure with initial serum creatinine 5.22 whereas his baseline creatinine is 3.10 from 10/11/2020. He also had non-anion gap acidosis and hyperkalemia associated with MARGE. Urine culture from December 29 growing [id number] Staph aureus. Subsequent urine culture from December 30 growing greater than 100,000 staph aureus. Patient has neurogenic bladder with chronic incontinence but does not have a chronic catheter or get intermittently urinary catheterization. CT KUB showed bilateral moderate hydronephrosis and hydroureter which is chronic, in large retroperitoneal periaortic lymph node, small pericardial effusion. Patient received volume resuscitation, pressure support and IV antibiotic with Zosyn and vancomycin in emergency department with improvement in sepsis parameters over the course of 24 hours. His renal function also seemed to be improving with treatment of urinary sepsis. Family history unremarkable for multiple sclerosis. Patient History Medical History Chronic anemia Chronic kidney disease Hyperlipidemia Hypertension Multiple sclerosis Neurogenic bladder Stroke Type 2 diabetes mellitus Family & Social History Social History: household members caregiver Prior Living Arrangements Assisted Living Safety & Behavioral: Feels Safe in Current Yes Environment Been Physically Hurt or No Threatened By a Person Suicidal Ideation Description None Suicide Plan Description No Plan Tobacco & Substance use: Smoking Status Never smoker alcohol intake former alcohol intake frequency 0-2 drinks per day Substance Use Type does not use Meds Home Medications and Allergies Home Medications Medication Instructions Recorded Confirmed Type acetaminophen 325 mg capsule 650 mg PO Q4H PRN 12/30/20 12/30/20 History aspirin 81 mg tablet 81 mg PO QAM 12/30/20 12/30/20 History atorvastatin 20 mg tablet 20 mg PO QAM 12/30/20 12/30/20 History bismuth subsalicylate 262 mg/15 mL 524 mg PO Q4HR PRN 12/30/20 12/30/20 History oral suspension (Pepto-Bismol) chlorhexidine gluconate 2 % See Rx Instructions .ROUTE .COMPLEX 12/30/20 12/30/20 History topical liquid docusate sodium 100 mg capsule 200 mg PO QAM 12/30/20 12/30/20 History ferrous sulfate 325 mg (65 mg 325 mg PO QAM 12/30/20 12/30/20 History iron) capsule,extended release hydrocodone 5 mg-acetaminophen 325 1 - 2 tab PO Q6H PRN 12/30/20 12/30/20 History mg tablet insulin glargine 100 unit/mL (3 30 unit SUBCUT DAILY 12/30/20 12/30/20 History mL) subcutaneous pen (Lantus Solostar U-100 Insulin) lidocaine 4 % topical patch 1 patch TOPICAL TID 12/30/20 12/30/20 History (Aspercreme (lidocaine)) lisinopril 5 mg tablet 5 mg PO QAM 12/30/20 12/30/20 History loperamide 2 mg capsule 2 mg PO QID PRN 12/30/20 12/30/20 History pantoprazole 40 mg tablet,delayed 40 mg PO QAM 12/30/20 12/30/20 History release polyethylene glycol 3350 17 gram 17 g PO QAM 12/30/20 12/30/20 History oral powder packet tamsulosin 0.4 mg capsule 0.4 mg PO QAM 12/30/20 12/30/20 History Allergies Allergy/AdvReac Type Severity Reaction Status Date / Time No Known Drug Allergies Allergy Verified 12/30/20 10:48 Review of Systems Review of Systems Narrative: Denies chest pain, dyspnea, cough, abdominal pain, diarrhea. Exam Vital Signs (past 8 hours): - 12/31/20 05:45 12/31/20 06:00 12/31/20 06:16 Temperature Pulse Rate 95 H 107 H 87 Respiratory Rate 21 19 23 Blood Pressure 106/57 L 106/60 88/61 L Pulse Oximetry 96 97 97 12/31/20 06:30 12/31/20 06:45 12/31/20 07:01 Temperature Pulse Rate 93 H 103 H 94 H Respiratory Rate 23 20 21 Blood Pressure 101/61 94/54 L 71/41 L Pulse Oximetry 98 96 12/31/20 07:05 12/31/20 07:15 12/31/20 07:30 Temperature Pulse Rate 99 H 98 H 97 H Respiratory Rate 20 20 20 Blood Pressure 102/53 L 95/51 L Pulse Oximetry 96 96 97 12/31/20 07:34 12/31/20 07:45 12/31/20 08:00 Temperature Pulse Rate 96 H Respiratory Rate 20 Blood Pressure 114/63 119/64 106/59 L Pulse Oximetry 97 12/31/20 08:15 12/31/20 08:30 12/31/20 08:42 Temperature Pulse Rate 93 H 93 H 96 H Respiratory Rate 19 15 Blood Pressure 100/55 L 121/66 121/70 Pulse Oximetry 98 97 98 12/31/20 08:45 12/31/20 09:00 12/31/20 09:15 Temperature 98.1 F Pulse Rate 97 H 101 H 96 H Respiratory Rate 17 20 22 Blood Pressure 113/62 121/70 114/64 Pulse Oximetry 96 98 96 12/31/20 09:30 12/31/20 09:45 Temperature Pulse Rate 101 H 100 H Respiratory Rate 14 20 Blood Pressure 128/68 134/77 Pulse Oximetry 99 97 Oxygen Delivery Method Room Air Narrative Exam Narrative: General: Alert very pleasant well-developed well-nourished male in no acute distress HEENT: Anicteric, no oral lesions Neck: Supple without lymphadenopathy Lungs: Clear to auscultation Heart: Normal S1 and S2, regular rate and rhythm, no murmur Abdomen: Soft, nontender, no HSM Extremities: No cyanosis or edema Neurological: Alert, speech fluent, A&O x3, has flaccid paralysis in both legs, left arm but able to move right lower arm with moderate weakness Skin: No rash Objective Labs Result Diagrams: 12/31/20 04:50 12/31/20 04:50 Labs: Laboratory Results - last 24 hr 12/30/20 12/30/20 12/30/20 14:40 14:40 20:43 WBC 21.3 H RBC 3.47 L Hgb 9.7 L Hct 29.8 L MCV 85.9 MCH 28.0 MCHC 32.6 RDW 15.8 H Plt Count 622 H Neut % (Auto) 83.0 H Lymph % (Auto) 4.1 L Alexander % (Auto) 10.6 Eos % (Auto) 2.0 Baso % (Auto) 0.3 Neut # (Auto) 41560 H Lymph # (Auto) 900 L Alexander # (Auto) 2300 H Eos # (Auto) 400 Baso # (Auto) 100 Sodium 142 Potassium 5.6 H Chloride 119 H Carbon Dioxide 15 L BUN 69 H Creatinine 4.75 H Estimated GFR 12.6 L BUN/Creatinine Ratio 14.5 Glucose 216 H Lactate 1.3 Calcium 9.2 12/30/20 12/31/20 12/31/20 20:43 00:48 04:50 WBC 18.6 H RBC 3.09 L Hgb 8.6 L Hct 26.5 L MCV 85.8 MCH 27.8 MCHC 32.4 RDW 15.3 H Plt Count 528 H Neut % (Auto) 81.6 H Lymph % (Auto) 4.9 L Alexander % (Auto) 10.3 Eos % (Auto) 2.6 Baso % (Auto) 0.6 Neut # (Auto) 06782 H Lymph # (Auto) 900 L Alexander # (Auto) 1900 H Eos # (Auto) 500 H Baso # (Auto) 100 Sodium 141 151 H D Potassium 4.6 4.0 Chloride 114 H 116 H Carbon Dioxide 19 L 32 BUN 61 H 57 H Creatinine 4.44 H 3.66 H Estimated GFR 13.6 L 17.0 L BUN/Creatinine Ratio 13.7 15.6 Glucose 311 H 219 H Lactate Calcium 8.2 L 6.7 L 12/31/20 04:50 WBC RBC Hgb Hct MCV MCH MCHC RDW Plt Count Neut % (Auto) Lymph % (Auto) Alexander % (Auto) Eos % (Auto) Baso % (Auto) Neut # (Auto) Lymph # (Auto) Alexander # (Auto) Eos # (Auto) Baso # (Auto) Sodium 145 Potassium 4.5 Chloride 117 H Carbon Dioxide 22 BUN 60 H Creatinine 4.23 H Estimated GFR 14.4 L BUN/Creatinine Ratio 14.2 Glucose 154 H Lactate Calcium 8.1 L Assessment & Plan Assessment & Plan narrative: 1. Sepsis due to complicated UTI -patient presenting with hypotension, tachycardia, leukocytosis and hematuria, able to wean off pressor in ED -urine culture December 29 growing Staph aureus, repeat urine culture December 30 growing greater than 100,000 staph aureus -patient has chronic bilateral hydronephrosis consistent with neurogenic bladder secondary to multiple sclerosis, does not have chronic Hightower catheter or get intermittent catheterization -treat with vancomycin and Zosyn for complicated UTI -NS 100 cc/hours -CBC, BNP in a.m. -follow-up on urine culture sensitivities 2. Acute kidney injury on likely stage 4 chronic kidney disease -admit creatinine 5.22 versus baseline 3.10 on October 11, 2020 -urine output has been sufficient -continued treatment of sepsis with volume support and IV antibiotics -hold lisinopril -continue patient's tamsulosin 3. Type 2 diabetes insulin requiring -initial glucose 150 -continue insulin glargine 30 units subQ daily per home routine -continue patient's atorvastatin 3. Multiple sclerosis with functional quadriplegia -patient is functional quadriplegic, mobilizes with electric wheelchair, needs accommodations for feeding 4. Mild pericardial effusion -significance unclear, no evidence of cardiac tamponade 5. Mildly enlarged retroperitoneal periaortic lymph node -significance unclear, without evidence of malignancy on abdominal CT Admit status: Inpatient Code status: Full code but does not wish to be in chronic vegetative state DVT prophylaxis: SubQ heparin Scores SOFA PaO2/FIO2: >=400 mmHg Platelets: >= 150 Bilirubin: < 1.2 mg/dL Hypotension: Dopamine >15 or norepinephrine >0.1 Prateek Coma Scale: 15 Renal: Creatinine >5.0 mg/dL or UOP <200 mL SOFA Score: 8
--- NOTE | 2020-12-31 14:43 | PC.NURSE ---
Day shift: Pt is A&Ox4. He needs to be fed at meal time. C/o chronic rt shoulder pain. Placed in Cherelle bed today to help with turning and repositioning. He cannot due much for himself at this time. Hightower patent with few clots and pink urine. Good output. No c/o pain or nausea today. Coccyx has skin breakdown and so does the bottom part of his upper thighs. Likely moisture related. He is incontinent. Last BG 180. Oriented to room and call light. WIll continue with plan of care.
[2020-12-31] MEDS: PANTOPRAZOLE DR 40 MG TABLET PO (17:32)
[2020-12-31] MEDS: TAMSULOSIN 0.4 MG CAPSULE PO (17:33)
[2020-12-31] MEDS: ATORVASTATIN 20 MG TABLET PO (17:33)
[2020-12-31] MEDS: INSULIN LISPRO 100 UNIT/ML 3ML VIAL SUBCUT (17:36)
[2020-12-31] MEDS: ASPIRIN EC 81 MG TABLET PO (17:39)
[2020-12-31] MEDS: LIDOCAINE PATCH 1 EACH ADH..PATCH TOP (17:40)
[2020-12-31] MEDS: HEPARIN 5,000 UNIT/ML VIAL 5000 UNIT SUBCUT (21:52)
[2021-01-01] VITALS (8 sets, daily range): BP systolic 109–121; BP diastolic 63–73; PULSE 84–92; RESP 18–20; TEMP 36.2–37.1; O2SAT 95–98
[2021-01-01] MEDS: ACETAMINOPHEN 325 MG TABLET 650 MG PO ×2 (00:34→18:29)
--- NOTE | 2021-01-01 03:12 | PC.NURSE ---
Patient is alert and oriented. Speech slightly slurred which is his normal. Breath sounds diminished at the bases but CTA with RA sat of 95%. HRR with telemetry reading of ST and rate in low 100's. Denied nausea. BT present and abdomen is soft. Indwelling catheter is patent; urine is clear red with no clots noted. Patient has slight movement in right leg but is flaccid in bilateral LE and left UE. Is able to move right UE but is weak and has limited ROM. Is needing to be repositioned q2h as cannot move himself. Complaining of discomfort in buttocks/coccyx which is reddened but blanchable; waffle cushion placed and medicated with Tylenol. Had SCD's on at shift change but requested they be removed at time of assessment. Fall risk score is high and bed alarm is activated.
[2021-01-01] MEDS: PANTOPRAZOLE DR 40 MG TABLET PO (06:13)
--- NOTE | 2021-01-01 07:36 | PC.NURSE ---
Day shift: Dr Lopez informed of lab report of MRSA in urine at this time.
--- NOTE | 2021-01-01 08:36 | PC.NURSE ---
Placed pillows under both Butt Cheeks to take pressure off of his Bum.
--- NOTE | 2021-01-01 09:35 | CM.DANOTE ---
Addendum entered by Jessica Abraham LPN 01/01/21 10:43: Introduced self and role. Pt confirms he resides at [facility] and anticipates being able to go back when stable for same. He came over by ambulance. His specialized [id number] wheelchair remains at the facility. He says he is able to manage his own positioning in the w/c so as to be more comfortable during the day. He has limited use of R arm,otherwise limbs flaccid. Carries dx of MS. Neurogenic Bladder. IDDM Pt idenfies his son Albino: ([phone] is the # listed on his face sheet) as his family and divorce legal assistant. He is not sure if he has POA but says he has all of his AD paperwork in care of his son. Contact precautions noted: urine growing MRSA. Dr. Lopez says he anticipates pt will be here a few days for treatment and then hopefully return to his [facility] home. Have left a message at [facility] (main line: [phone]) with option of the [facility]/Admissions and faxed clinical/H&P to [phone]. P: anticipate it will be easier to speak with someone at the facility on Saturday.....DCP team will be following. [facility] team will likely need to do assessment prior to pt's return...will defer to their protocol. Original Note: Discharge Planning/Care Management DCP: assessment: Case received, EMR reviewed and met with pt. Advanced directive, confirm from FAMILY Start: 12/31/20 13:32 Freq: Q24H Status: Complete Protocol: Document 12/31/20 13:32 YAD (Rec: 12/31/20 13:32 YAD [id number]) Advance Directive, confirm on record Time 13:32 Person contacted Patient. In Pt's chart Copy received Yes CM Discharge Assessment Start: 01/01/21 09:30 Freq: Status: Active Protocol: Document 01/01/21 09:30 ITV (Rec: 01/01/21 09:32 ITV [id number]) Discharge Planning Assessment Advance Directives? Yes Advance Directives on File Yes: In Pt's chart History Provided By Patient,Medical Record Prior Living Arrangements Assisted Living Comment [facility] Type of transporation used prior to Relies on Others admit Facility Name Admitted From: [facility] Willing to Return to Facility? Yes Independent with ADL's No Is patient alert and oriented? Yes Needs Assistance With Bathing,Eating,Grooming,Meal Prep,Toileting,Managing Medications,Home Chores / Shopping DME Already Rented / Owned Wheelchair Comment tilt in space w/c Whiteboard Updated in Patient Room with Yes name and ext. # of Flexible Shaft Winder Document 01/01/21 09:35 ITV (Rec: 01/01/21 09:35 ITV [id number]) Discharge Planning Assessment Advance Directives? Yes Advance Directives on File Yes: In Pt's chart History Provided By Patient,Medical Record Prior Living Arrangements Assisted Living Comment [facility] Household Members caregiver Type of transporation used prior to Relies on Others admit Facility Name Admitted From: [facility] Willing to Return to Facility? Yes Independent with ADL's No Is patient alert and oriented? Yes Needs Assistance With Bathing,Eating,Grooming,Meal Prep,Toileting,Managing Medications,Home Chores / Shopping DME Already Rented / Owned Wheelchair Comment tilt in space w/c Whiteboard Updated in Patient Room with Yes name and ext. # of Flexible Shaft Winder
[2021-01-01] MEDS: polyethylene glycoL 3350 17 GM POWD.PACK PO (10:05)
[2021-01-01] MEDS: DOCUSATE 100 MG CAPSULE 200 MG PO (10:06)
[2021-01-01] MEDS: INSULIN LISPRO 100 UNIT/ML 3ML VIAL SUBCUT ×3 (10:07→17:08)
[2021-01-01] MEDS: INSULIN GLARGINE 100 UNIT/ML 3ML PEN 30 UNIT SUBCUT (10:07)
[2021-01-01] MEDS: TAMSULOSIN 0.4 MG CAPSULE PO (10:13)
[2021-01-01] MEDS: ASPIRIN EC 81 MG TABLET PO (10:13)
[2021-01-01] MEDS: ATORVASTATIN 20 MG TABLET PO (10:13)
[2021-01-01] MEDS: HYDROCODONE/ACET 5/325 TABLET 1 TAB PO (10:13)
[2021-01-01] MEDS: LIDOCAINE PATCH 1 EACH ADH..PATCH TOP (10:14)
[2021-01-01] MEDS: FERROUS SULFATE 325 MG TABLET PO (10:14)
[2021-01-01] MEDS: HEPARIN 5,000 UNIT/ML VIAL 5000 UNIT SUBCUT ×2 (10:14→21:06)
[2021-01-01] MEDS: SODIUM CHLORIDE 0.9% 1,000 ML 100 ML IV ×2 (10:19→17:09)
[2021-01-01] MEDS: PIPERACILLIN/TAZO 3.375 GM in SODIUM CHLORIDE 0.9% 100 ML 25 ML IV ×2 (10:37→21:08)
[2021-01-01 11:58] LABS: Vancomycin Trough 9.8 ug/mL (10-20)
--- NOTE | 2021-01-01 15:30 | P.PN_ITS ---
Subjective Subjective Date Patient Seen: 01/01/21 Interval history: 60-year-old male with known history of multiple sclerosis, functional quadriplegia, neurogenic bladder, insulin-requiring type 2 diabetes, chronic kidney disease, chronic anemia who resides at [facility] living and presented with hematuria and tachycardia. He is being treated for sepsis and UTI. Urine culture grew MRSA. Patient is not having fevers or chills. He does complain of developing bedsores which she states was present prior to admission when he got sick over the past week. He has stage II pressure ulcer on the coccyx and also ulcerations in the perineum. Exam Vital Signs (past 8 hours): - 01/01/21 09:59 01/01/21 14:26 Pulse Oximetry 96 96 Oxygen Delivery Method Room Air Oxygen Flow Rate 0 Narrative Exam Narrative: General: Alert and pleasant cooperative male Lungs: Clear to auscultation Neurological: At baseline, speech with some baseline dysarthria, has some movement in right arm below elbow Objective Labs Result Diagrams: 12/31/20 04:50 12/31/20 04:50 Labs: Laboratory Results - last 24 hr 01/01/21 11:22 Vancom[facility] Trough 9.8 L [facility] Medical History Chronic anemia Chronic kidney disease Hyperlipidemia Hypertension Multiple sclerosis Neurogenic bladder Stroke Type 2 diabetes mellitus Social History household members: caregiver Smoking Status: Never smoker alcohol intake: former Assessment & Plan Assessment & Plan narrative: 1. Sepsis due to complicated UTI -patient presented with hypotension, tachycardia, leukocytosis and hematuria, able to wean off pressor in ED -urine culture December 29 and December 30 growing MRSA -patient has chronic bilateral hydronephrosis consistent with neurogenic bladder secondary to multiple sclerosis -does not have chronic Hightower catheter or get intermittent catheterization -treat with vancomycin and Zosyn for complicated UTI, as I am concerned he may have Gram-negative source of UTI not found in cultures -NS 100 cc/hours -CBC, BMP in a.m. 2. Acute kidney injury on likely stage 4 chronic kidney disease -admit creatinine 5.22 versus baseline 3.10 on October 11, current creatinine still above 4, urine output remains adequate -urine output has been sufficient -continued treatment of sepsis with volume support and IV antibiotics -hold lisinopril -continue patient's tamsulosin 3. Type 2 diabetes insulin requiring -initial glucose 150 -continue insulin glargine 30 units subQ daily per home routine -continue patient's atorvastatin 3. Multiple sclerosis with functional quadriplegia -patient is functional quadriplegic, mobilizes with electric wheelchair, needs accommodations for feeding 4. Mild pericardial effusion -significance unclear, no evidence of cardiac tamponade 5. Mildly enlarged retroperitoneal periaortic lymph node -significance unclear, without evidence of malignancy on abdominal CT 6. Stage II cocyx 6 and unstageable perineal pressure sores present prior to admission -continue positioning in bed q.2 hours and barrier cream Admit status: Inpatient Code status: Full code but does not wish to be in chronic vegetative state DVT prophylaxis: SubQ heparin
[2021-01-01] MEDS: VANCOMYCIN 1,000 MG/200 ML PIGGYBACK 200 MG IV (17:08)
--- NOTE | 2021-01-01 19:36 | PC.NURSE ---
1600: alert/oriented, voices needs w/ use of soft call light. Generalized weakness, dependant on staff for mobility, 2pa turn and reposition, tilt bed helpful. c/o R shoulder px, PRN apap x 1, lidocaine patch applied, pillow under RUE for comfort. + CSM. herrera patent, continues w/ light rogers clear urine to gravity. 1700: patient supine, hips bridged. HOB up for dinner, 1:1 feeding assistance. no s/sx of aspiration, tolerating liquids, meds whole w/ . 1800: tolerated turn off his side, supported w/ pillows. prefers to keep LE's straight, hx of BTKA, has healed scars. attempted to use bed calle for BM, w/ no success. barrier cream to excoriated scabbed area on coccyx and buttock. continues w/ NS at 100/hr via 2 lumen picc LUE. CBC. CMP in AM. call light w/in reach.
[2021-01-02] VITALS (14 sets, daily range): BP systolic 113–142; BP diastolic 58–73; PULSE 67–94; RESP 15–20; TEMP 36.1–36.9; O2SAT 96–98
[2021-01-02] MEDS: SODIUM CHLORIDE 0.9% 1,000 ML 100 ML IV ×2 (03:14→13:29)
[2021-01-02 05:13] LABS: Add Manual Diff / Slide Review NO; Basophils Absolute Auto 300 /uL (0-100); Basophils Percent Auto 2.3 % (0-2); Eosinophils Absolute Auto 800 /uL (0-450); Eosinophils Percent Auto 5.5 % (2-4); Hematocrit 24.8 % (41-53); Hemoglobin 8.1 g/dL (13.5-17.5); Lymphocytes Absolute Auto 900 /uL (1100-4500); Lymphocytes Percent Auto 6.7 % (25-40); Mean Corpuscular HGB Conc 32.7 % (30-36); Mean Corpuscular Hemoglobin 28.1 PG (26-34); Mean Corpuscular Volume 85.8 fL (80-100); Monocytes Absolute Auto 1400 /uL (0-900); Monocytes Percent Auto 9.9 % (3-14); Neutrophils Absolute Auto 10400 /uL (1500-7000); Neutrophils Percent Auto 75.6 % (50-75); Platelet Count 455 X10^3/uL (150-400); Red Blood Cell Count 2.89 X10^6/uL (4.5-5.9); Red Cell Distribution Width 15.3 % (11.6-14.8); White Blood Cell Count 13.8 X10^3/uL (4.5-11.0)
[2021-01-02 05:27] LABS: BUN Creatinine Ratio 12.7 (6-22); Blood Urea Nitrogen 46 mg/dL (9-20); Calcium 7.9 mg/dL (8.4-10.2); Carbon Dioxide 20 mmol/L (22-32); Chloride 117 mmol/L (98-107); Estimated Glomerular Filt Rate 17.2 mL/min (>60); Glucose 81 mg/dL (80-110); HEMOLYSIS < 15 (0-50); Potassium 4.3 mmol/L (3.4-5.1); Sodium 143 mmol/L (137-145)
[2021-01-02] MEDS: PANTOPRAZOLE DR 40 MG TABLET PO (06:01)
[2021-01-02] MEDS: TAMSULOSIN 0.4 MG CAPSULE PO (09:23)
[2021-01-02] MEDS: ATORVASTATIN 20 MG TABLET PO (09:23)
[2021-01-02] MEDS: ASPIRIN EC 81 MG TABLET PO (09:23)
[2021-01-02] MEDS: HYDROCODONE/ACET 5/325 TABLET 1 TAB PO ×2 (09:24→20:44)
[2021-01-02] MEDS: LIDOCAINE PATCH 1 EACH ADH..PATCH TOP (09:24)
[2021-01-02] MEDS: polyethylene glycoL 3350 17 GM POWD.PACK PO (09:24)
[2021-01-02] MEDS: FERROUS SULFATE 325 MG TABLET PO (09:24)
[2021-01-02] MEDS: DOCUSATE 100 MG CAPSULE 200 MG PO (09:24)
[2021-01-02] MEDS: HEPARIN 5,000 UNIT/ML VIAL 5000 UNIT SUBCUT ×2 (09:25→20:32)
[2021-01-02] MEDS: INSULIN GLARGINE 100 UNIT/ML 3ML PEN 30 UNIT SUBCUT (09:30)
[2021-01-02] MEDS: PIPERACILLIN/TAZO 3.375 GM in SODIUM CHLORIDE 0.9% 100 ML 25 ML IV (09:33)
--- NOTE | 2021-01-02 15:44 | P.PN_ITS ---
Subjective Subjective Date Patient Seen: 01/02/21 Time Patient Seen: 15:44 Interval history: 60-year-old male with known history of multiple sclerosis, functional quadriplegia, neurogenic bladder, insulin-requiring type 2 diabetes, chronic kidney disease, chronic anemia who resides at [facility] living and presented with hematuria and tachycardia. He is being treated for sepsis and UTI. Urine culture grew MRSA. Patient is not having fevers or chills. Feels well. Exam Vital Signs (past 8 hours): - 01/02/21 07:49 01/02/21 08:00 01/02/21 10:05 Temperature 97.1 F L Pulse Rate 94 H Respiratory Rate 18 Blood Pressure 122/58 L Pulse Oximetry 98 96 96 01/02/21 11:10 01/02/21 11:32 01/02/21 14:33 Temperature 98 F Pulse Rate 90 Respiratory Rate 17 Blood Pressure 125/73 Pulse Oximetry 97 97 96 01/02/21 14:45 Temperature Pulse Rate Respiratory Rate Blood Pressure Pulse Oximetry 97 Oxygen Delivery Method Room Air Oxygen Flow Rate 0 Narrative Exam Narrative: General: Alert very pleasant well-developed well-nourished male in no acute distress HEENT: Anicteric, no oral lesions Neck: Supple without lymphadenopathy Lungs: Clear to auscultation Heart: Normal S1 and S2, regular rate and rhythm, no murmur Abdomen: Soft, nontender, no HSM Extremities: No cyanosis or edema Neurological: Alert, speech fluent, A&O x3, has flaccid paralysis in both legs, left arm but able to move right lower arm with moderate weakness Skin: No rash Objective Labs Result Diagrams: 01/02/21 05:04 01/02/21 05:04 Labs: Laboratory Results - last 24 hr 01/02/21 01/02/21 05:04 05:04 WBC 13.8 H RBC 2.89 L Hgb 8.1 L Hct 24.8 L MCV 85.8 MCH 28.1 MCHC 32.7 RDW 15.3 H Plt Count 455 H Neut % (Auto) 75.6 H Lymph % (Auto) 6.7 L [place] % (Auto) 9.9 Eos % (Auto) 5.5 H Baso % (Auto) 2.3 H Neut # (Auto) 83531 H Lymph # (Auto) 900 L [place] # (Auto) 1400 H Eos # (Auto) 800 H Baso # (Auto) 300 H Sodium 143 Potassium 4.3 Chloride 117 H Carbon Dioxide 20 L BUN 46 H Creatinine 3.62 H Estimated GFR 17.2 L BUN/Creatinine Ratio 12.7 Glucose 81 Calcium 7.9 L PFSH Medical History Chronic anemia Chronic kidney disease Hyperlipidemia Hypertension Multiple sclerosis Neurogenic bladder Stroke Type 2 diabetes mellitus Social History household members: caregiver Smoking Status: Never smoker alcohol intake: former Assessment & Plan Assessment & Plan narrative: 1. Sepsis due to complicated UTI -patient presented with hypotension, tachycardia, leukocytosis and hematuria, able to wean off pressor in ED -urine culture December 29 and December 30 growing MRSA. Has been on IV vancomycin, cultures sensitive to doxycycline will start this today given improvement in WBC count. -patient has chronic bilateral hydronephrosis consistent with neurogenic bladder secondary to multiple sclerosis -does not have chronic Hightower catheter or get intermittent catheterization -treat with vancomycin and Zosyn initially for complicated UTI. Will narrow to doxycycline today based on cultures. If WBC continues to improve (now to 13) plan for return to assisted living tomorrow. 2. Acute kidney injury on likely stage 4 chronic kidney disease -admit creatinine 5.22 versus baseline 3.10 on October 11, current creatinine still above baseline but now close to normal at 3.6. -urine output has been sufficient -continued treatment of sepsis with volume support and IV antibiotics -held lisinopril -continue patient's tamsulosin 3. Type 2 diabetes insulin requiring -initial glucose 150 -continue insulin glargine 30 units subQ daily per home routine -continue patient's atorvastatin 3. Multiple sclerosis with functional quadriplegia -patient is functional quadriplegic, mobilizes with electric wheelchair, needs accommodations for feeding 4. Mild pericardial effusion -significance unclear, no evidence of cardiac tamponade 5. Mildly enlarged retroperitoneal periaortic lymph node -significance unclear, without evidence of malignancy on abdominal CT 6. Stage II cocyx 6 and unstageable perineal pressure sores present prior to admission -continue positioning in bed q.2 hours and barrier cream Admit status: Inpatient Code status: Full code but does not wish to be in chronic vegetative state DVT prophylaxis: SubQ heparin
[2021-01-02] MEDS: SODIUM CHLORIDE 0.9% FLUSH 10 ML IV (20:32)
[2021-01-02] MEDS: DOXYCYCLINE HYCLATE 100 MG TABLET PO (20:32)
[2021-01-02] MEDS: ACETAMINOPHEN 325 MG TABLET 650 MG PO (22:53)
[2021-01-03] VITALS (9 sets, daily range): BP systolic 122–141; BP diastolic 72–82; PULSE 79–86; RESP 16–24; TEMP 36.1–37.3; O2SAT 96–98
[2021-01-03] MEDS: SODIUM CHLORIDE 0.9% 1,000 ML 100 ML IV ×2 (00:03→09:12)
--- NOTE | 2021-01-03 00:18 | PC.NURSE ---
Patient is alert and oriented with slightly slurred speech. Breath sounds diminished at bases but CTA with RA sat of 96%. HRR. Denies nausea. BT hypoactive; abdomen is soft. Indwelling catheter is patent; urine is clear cecy with pink hue. Is unable to move himself as left extremities/right leg are flaccid and has minimal use of right arm; currently declining to be repositioned as states he is finally comfortable. Is non ambulatory. Declines to wear SCD's despite information regarding DVT prevention. Denies pain at present time. On contact isolation related to MRSA in urine. Fall risk score is high and bed alarm is activated.
[2021-01-03] MEDS: ACETAMINOPHEN 325 MG TABLET 650 MG PO (04:40)
[2021-01-03] MEDS: SODIUM CHLORIDE 0.9% FLUSH 10 ML IV (04:58)
[2021-01-03 05:15] LABS: Add Manual Diff / Slide Review NO; Basophils Absolute Auto 100 /uL (0-100); Basophils Percent Auto 0.9 % (0-2); Eosinophils Absolute Auto 600 /uL (0-450); Eosinophils Percent Auto 4.8 % (2-4); Hematocrit 24.8 % (41-53); Hemoglobin 8.1 g/dL (13.5-17.5); Lymphocytes Absolute Auto 1300 /uL (1100-4500); Lymphocytes Percent Auto 10.5 % (25-40); Mean Corpuscular HGB Conc 32.8 % (30-36); Mean Corpuscular Hemoglobin 28.3 PG (26-34); Mean Corpuscular Volume 86.3 fL (80-100); Monocytes Absolute Auto 1200 /uL (0-900); Monocytes Percent Auto 9.4 % (3-14); Neutrophils Absolute Auto 9400 /uL (1500-7000); Neutrophils Percent Auto 74.4 % (50-75); Platelet Count 444 X10^3/uL (150-400); Red Blood Cell Count 2.87 X10^6/uL (4.5-5.9); Red Cell Distribution Width 14.9 % (11.6-14.8); White Blood Cell Count 12.7 X10^3/uL (4.5-11.0)
[2021-01-03 05:22] LABS: BUN Creatinine Ratio 11.5 (6-22); Blood Urea Nitrogen 39 mg/dL (9-20); Carbon Dioxide 20 mmol/L (22-32); Chloride 119 mmol/L (98-107); Estimated Glomerular Filt Rate 18.6 mL/min (>60); Glucose 100 mg/dL (80-110); HEMOLYSIS < 15 (0-50); Potassium 4.4 mmol/L (3.4-5.1); Sodium 143 mmol/L (137-145)
[2021-01-03] MEDS: PANTOPRAZOLE DR 40 MG TABLET PO (06:17)
--- NOTE | 2021-01-03 08:48 | P.DS_ITS ---
History of Present Illness History of Present Illness Date Patient Seen: 01/03/21 Time Patient Seen: 08:49 Chief complaint: Hematuria and tachycardia Narrative: Per Dr. Gibbons: Patient is a 60-year-old male with known history of multiple sclerosis, functional quadriplegia, neurogenic bladder, insulin-requiring type 2 diabetes, chronic kidney disease, chronic anemia who resides at [facility] living. About a day ago he developed hematuria and tachycardia. UA was positive for nitritesWas sent to ED for additional evaluation. In the ED noted to be afebrile but tachycardic. He subsequently dropped his blood pressure into the 70's systolic requiring pressure support with Levophed in addition to volume resuscitation. Initial WBC 19.6 with left shift. He was in acute renal failure with initial serum creatinine 5.22 whereas his baseline creatinine is 3.10 from 10/11/2020. He also had non-anion gap acidosis and hyperkalemia associated with MARGE. Urine culture from December 29 growing [id number] Staph aureus. Subsequent urine culture from December 30 growing greater than 100,000 staph aureus. Patient has neurogenic bladder with chronic incontinence but does not have a chronic catheter or get intermittently urinary catheterization. CT KUB showed bilateral moderate hydronephrosis and hydroureter which is chronic, in large retro peritoneal periaortic lymph node, small pericardial effusion. Patient received volume resuscitation, pressure support and IV antibiotic with Zosyn and vancomycin in emergency department with improvement in sepsis parameters over the course of 24 hours. His renal function also seemed to be improving with treatment of urinary sepsis. Family history unremarkable for multiple sclerosis. Discharge Providers Provider Date of admission: 12/31/20 08:47 Discharge Date: 01/03/21 Primary care physician: Keeley Michel MD Discharge provider: Otto Ordonez DO Summary Hospital Course Discharge Diagnosis: Please see hospital course by problem list noted below Hospital Course: 1. Sepsis with septic shock due to complicated UTI -patient presented with hypotension, tachycardia, leukocytosis and hematuria, able to wean off pressor in ED -urine culture December 29 and December 30 growing MRSA. Has been on IV vancomycin, cultures sensitive to doxycycline which was started on 01/02 with continued improvement in his WBC count. -patient has chronic bilateral hydronephrosis consistent with neurogenic bladder secondary to multiple sclerosis -does not have chronic Hightower catheter or get intermittent catheterization -treated initially with vancomycin and Zosyn initially for complicated UTI. Narrowed to doxycycline 01/02 based on cultures. WBC continued to improve as did the patient. Stable for discharge back to assisted living today with plan to complete 7 days of total antibiotic thearpy. 2. Acute kidney injury on likely stage 4 chronic kidney disease -admit creatinine 5.22 versus baseline 3.10 on October 11, current creatinine still above baseline but now near baseline at 3.4. -urine output has been sufficient -continued treatment of sepsis with volume support and IV antibiotics -held lisinopril, can resume on discharge -continue patient's tamsulosin 3. Type 2 diabetes insulin requiring -initial glucose 150 -continue insulin glargine 30 units subQ daily per home routine, during admission patient had episodes of mild hypoglycemia. Insulin was reduced to 20 units. Likely diet related can presumably resume home dosing as sugars had been fairly controlled -continue patient's atorvastatin 3. Multiple sclerosis with functional quadriplegia -patient is functional quadriplegic, mobilizes with electric wheelchair, needs accommodations for feeding 4. Mild pericardial effusion -significance unclear, no evidence of cardiac tamponade, no current symptoms. 5. Mildly enlarged retroperitoneal periaortic lymph node -significance unclear, without evidence of malignancy on abdominal CT, may be reactive. 6. Stage II cocyx 6 and unstageable perineal pressure sores present prior to admission -continued positioning in bed q.2 hours and barrier cream Time Spent with Patient Time spent: Greater than 30 minutes Exam Vital Signs (past 8 hours): - 01/03/21 04:00 01/03/21 07:33 01/03/21 08:00 Temperature 96.9 F L 98.1 F Pulse Rate 85 84 Respiratory Rate 16 17 Blood Pressure 141/82 H 141/78 H Pulse Oximetry 97 96 98 Oxygen Delivery Method Room Air Oxygen Flow Rate 0 Narrative Exam Narrative: General: Alert very pleasant well-developed well-nourished male in no acute distress HEENT: Anicteric, no oral lesions Neck: Supple without lymphadenopathy Lungs: Clear to auscultation Heart: Normal S1 and S2, regular rate and rhythm, no murmur Abdomen: Soft, nontender, no HSM Extremities: No cyanosis or edema Neurological: Alert, speech fluent, A&O x3, has flaccid paralysis in both legs, left arm but able to move right lower arm with moderate weakness Skin: No rash Objective Labs Result Diagrams: 01/03/21 04:58 01/03/21 04:58 Labs: Laboratory Results - last 24 hr 01/03/21 01/03/21 04:58 04:58 WBC 12.7 H RBC 2.87 L Hgb 8.1 L Hct 24.8 L MCV 86.3 MCH 28.3 MCHC 32.8 RDW 14.9 H Plt Count 444 H Neut % (Auto) 74.4 Lymph % (Auto) 10.5 L [place] % (Auto) 9.4 Eos % (Auto) 4.8 H Baso % (Auto) 0.9 Neut # (Auto) 9400 H Lymph # (Auto) 1300 [place] # (Auto) 1200 H Eos # (Auto) 600 H Baso # (Auto) 100 Sodium 143 Potassium 4.4 Chloride 119 H Carbon Dioxide 20 L BUN 39 H Creatinine 3.39 H Estimated GFR 18.6 L BUN/Creatinine Ratio 11.5 Glucose 100 Calcium 8.0 L PFSH Medical History Chronic anemia Chronic kidney disease Hyperlipidemia Hypertension Multiple sclerosis Neurogenic bladder Stroke Type 2 diabetes mellitus Social History household members: caregiver Smoking Status: Never smoker alcohol intake: former Discharge Plan Discharge Plan Patient Disposition: Assisted Living Transfer to: [facility] Provider Discharge Comment: 1. Sepsis with septic shock due to complicated UTI -patient presented with hypotension, tachycardia, leukocytosis and hematuria, able to wean off pressor in ED -urine culture December 29 and December 30 growing MRSA. Has been on IV vancomycin, cultures sensitive to doxycycline will start this today given improvement in WBC count. -patient has chronic bilateral hydronephrosis consistent with neurogenic bladder secondary to multiple sclerosis -does not have chronic Hightower catheter or get intermittent catheterization -treated initially with vancomycin and Zosyn initially for complicated UTI. Narrowed to doxycycline today based on cultures. WBC continued to improve as did the patient. Stable for discharge back to assisted living today with plan to complete 7 days of total antibiotic thearpy. 2. Acute kidney injury on likely stage 4 chronic kidney disease -admit creatinine 5.22 versus baseline 3.10 on October 11, current creatinine still above baseline but now near baseline at 3.4. -urine output has been sufficient -continued treatment of sepsis with volume support and IV antibiotics -held lisinopril, can resume on discharge -continue patient's tamsulosin 3. Type 2 diabetes insulin requiring -initial glucose 150 -continue insulin glargine 30 units subQ daily per home routine -continue patient's atorvastatin 3. Multiple sclerosis with functional quadriplegia -patient is functional quadriplegic, mobilizes with electric wheelchair, needs accommodations for feeding 4. Mild pericardial effusion -significance unclear, no evidence of cardiac tamponade, no current symptoms. 5. Mildly enlarged retroperitoneal periaortic lymph node -significance unclear, without evidence of malignancy on abdominal CT, may be reactive. 6. Stage II cocyx 6 and unstageable perineal pressure sores present prior to admission -continued positioning in bed q.2 hours and barrier cream Discharge orders & Medications Discharge Orders: Discharge (Order); Ordered 01/03/21 Ordered By: Otto Ordonez Prescriptions: New doxycycline hyclate 100 mg tablet 100 mg PO BID 3 Days Qty: 6 RF: 0 Continued atorvastatin 20 mg tablet 20 mg PO QAM RF: 0 lidocaine [Aspercreme (lidocaine)] 4 % Adhesive Patch,Medicated 1 patch TOPICAL TID RF: 0 loperamide 2 mg Capsule 2 mg PO QID PRN (Reason: Diarrhea) RF: 0 polyethylene glycol 3350 17 gram Powder In Packet 17 g PO QAM RF: 0 hydrocodone-acetaminophen 5-325 mg Tablet 1 - 2 tab PO Q6H PRN (Reason: Pain (Scale Score 7-10)) RF: 0 tamsulosin 0.4 mg Capsule 0.4 mg PO QAM RF: 0 pantoprazole 40 mg Tablet,Delayed Release (Dr/Ec) 40 mg PO QAM RF: 0 bismuth subsalicylate [Pepto-Bismol] 262 mg/15 mL Suspension 524 mg PO Q4HR PRN (Reason: loose stools / upset stomach) RF: 0 chlorhexidine gluconate 2 % Liquid See Rx Instructions .ROUTE .COMPLEX RF: 0 docusate sodium 100 mg Capsule 200 mg PO QAM RF: 0 aspirin 81 mg Tablet 81 mg PO QAM RF: 0 lisinopril 5 mg tablet 5 mg PO QAM RF: 0 ferrous sulfate 325 mg (65 mg iron) Capsule, Extended Release 325 mg PO QAM RF: 0 acetaminophen 325 mg Capsule 650 mg PO Q4H PRN (Reason: fever/pain) RF: 0 Lantus Solostar U-100 Insulin 100 unit/mL (3 mL) insulin pen 30 unit SUBCUT DAILY RF: 0 Follow up/Referrals: Keeley Michel MD [Primary Care Provider] - Discharge Health Status Multidrug resistant organism: MRSA Precautions: Contact Diet/Activity/Treatments Diet: Diet as Tolerated Diet comment: No changes Activity: As tolerated, no changes Skin/Wound/Dressing Care Skin care: frequent turns to avoid bedsores Other wound treatment: barrier cream for stage II ulcer noted above Discharge Data Primary Care Provider: Keeley Michel
[2021-01-03] MEDS: LIDOCAINE 5% OINT 35 GM 1 APPLIC TOP (09:14)
[2021-01-03] MEDS: FERROUS SULFATE 325 MG TABLET PO (09:18)
[2021-01-03] MEDS: ASPIRIN EC 81 MG TABLET PO (09:18)
[2021-01-03] MEDS: TAMSULOSIN 0.4 MG CAPSULE PO (09:18)
[2021-01-03] MEDS: DOCUSATE 100 MG CAPSULE 200 MG PO (09:18)
[2021-01-03] MEDS: HEPARIN 5,000 UNIT/ML VIAL 5000 UNIT SUBCUT (09:18)
[2021-01-03] MEDS: ATORVASTATIN 20 MG TABLET PO (09:18)
[2021-01-03] MEDS: polyethylene glycoL 3350 17 GM POWD.PACK PO (09:18)
[2021-01-03] MEDS: INSULIN GLARGINE 100 UNIT/ML 3ML PEN 30 UNIT SUBCUT (09:23)
[2021-01-03] MEDS: DOXYCYCLINE HYCLATE 100 MG TABLET PO (09:23)
--- NOTE | 2021-01-03 11:37 | CM.DANOTE ---
DCP/continued: Received notification from provider that patient okay to return to [facility] today. [employer] placed call to [facility] spoke with Ruth. She confirms that patient can return today. Patient requiring his w/c and van for transport. Ruth reports that they can pick patient up today around 3:30pm. Orders and script faxed to [facility] per their request. Met with patient and he is aware and agreeable to d/c plan. RN updated no additional needs identified. P: Return to [facility] today. KJS Discharge Planning/Care Management Advanced directive, confirm from FAMILY Start: 12/31/20 13:32 Freq: Q24H Status: Complete Protocol: Document 12/31/20 13:32 YAD (Rec: 12/31/20 13:32 YAD [id number]) Advance Directive, confirm on record Time 13:32 Person contacted Patient. In Pt's chart Copy received Yes CM Discharge Assessment Start: 01/01/21 09:30 Freq: Status: Active Protocol: Document 01/01/21 09:30 ITV (Rec: 01/01/21 09:32 ITV [id number]) Discharge Planning Assessment Advance Directives? Yes Advance Directives on File Yes: In Pt's chart History Provided By Patient,Medical Record Prior Living Arrangements Assisted Living Comment [facility]/[place] Type of transporation used prior to Relies on Others admit Facility Name Admitted From: [facility] Willing to Return to Facility? Yes Independent with ADL's No Is patient alert and oriented? Yes Needs Assistance With Bathing,Eating,Grooming,Meal Prep,Toileting,Managing Medications,Home Chores / Shopping DME Already Rented / Owned Wheelchair Comment tilt in space w/c Whiteboard Updated in Patient Room with Yes name and ext. # of Civil Engineering Director Document 01/01/21 09:35 ITV (Rec: 01/01/21 09:35 ITV [id number]) Discharge Planning Assessment Advance Directives? Yes Advance Directives on File Yes: In Pt's chart History Provided By Patient,Medical Record Prior Living Arrangements Assisted Living Comment [facility]/[place] Household Members caregiver Type of transporation used prior to Relies on Others admit Facility Name Admitted From: [facility] Willing to Return to Facility? Yes Independent with ADL's No Is patient alert and oriented? Yes Needs Assistance With Bathing,Eating,Grooming,Meal Prep,Toileting,Managing Medications,Home Chores / Shopping DME Already Rented / Owned Wheelchair Comment tilt in space w/c Whiteboard Updated in Patient Room with Yes name and ext. # of Civil Engineering Director Document 01/03/21 11:37 KJS (Rec: 01/03/21 11:37 KJS [id number]) Discharge Planning Assessment Assigned Civil Engineering Director BRYNO Sapp Advance Directives? Yes Advance Directives on File Yes: In Pt's chart History Provided By Patient,Medical Record Prior Living Arrangements Assisted Living Comment [facility]/[place] Household Members caregiver Type of transporation used prior to Relies on Others admit Facility Name Admitted From: [facility] Willing to Return to Facility? Yes Independent with ADL's No Is patient alert and oriented? Yes Needs Assistance With Bathing,Eating,Grooming,Meal Prep,Toileting,Managing Medications,Home Chores / Shopping DME Already Rented / Owned Wheelchair Comment tilt in space w/c Whiteboard Updated in Patient Room with Yes name and ext. # of Civil Engineering Director
[2021-01-03] MEDS: INSULIN LISPRO 100 UNIT/ML 3ML VIAL SUBCUT (12:12)
--- NOTE | 2021-01-03 13:34 | PC.NURSE ---
Day shift; Report given to Ruth at [facility]. All questions answered.
--- NOTE | 2021-01-03 16:33 | PC.NURSE ---
Addendum entered by Anamaria Rogers R.N. 01/03/21 16:35: pt wearing isolation gown when he dc'd Original Note: day shift RN called facility for report. all other discharge done by day shift RN.
== END 2021-01-03 16:04 | DRG 871 ==
LOC: ED 12-31 08:47 → AC 12-31 08:47
PROVIDERS: Emergency Medicine; Internal Medicine; Admitting Provider Internal Medicine; Emergency Provider Emergency Medicine; PCP Internal Medicine; Referring Provider Emergency Medicine; Visit Provider Internal Medicine
DX: A41.9 Sepsis, unspecified organism (principal); R65.21 Severe sepsis with septic shock; R53.2 Functional quadriplegia; N39.0 Urinary tract infection, site not specified; N17.9 Acute kidney failure, unspecified; N18.4 Chronic kidney disease, stage 4 (severe); E87.2 Acidosis; A41.02 Sepsis due to Methicillin resistant Staphylococcus aureus; R65.20 Severe sepsis without septic shock; R31.9 Hematuria, unspecified; I12.9 Hypertensive chronic kidney disease with stage 1 through stage 4 chronic kidney disease, or unspecified chronic kidney disease; E11.22 Type 2 diabetes mellitus with diabetic chronic kidney disease; N31.9 Neuromuscular dysfunction of bladder, unspecified; G35 Multiple sclerosis; L89.152 Pressure ulcer of sacral region, stage 2; L89.890 Pressure ulcer of other site, unstageable; E78.5 Hyperlipidemia, unspecified; D64.89 Other specified anemias; Z79.4 Long term (current) use of insulin; Z20.822 Contact with and (suspected) exposure to COVID-19; R30.0 Dysuria
CPT/HCPCS: 36415; 36569; 36592; 51702; 71045; 74176; 80048; 80053; 80202; 81001; 82550; 82962; 83605; 83880; 84145; 84484; 85025; 85379; 87040; 87077; 87086; 87147; 87186; 87635; 93005; 93010; 94760; 96361; 96365; 96366; 96367; 96368; 96375; 99285; 99291; 99292; C9803; J0610; J1644; J1815; J2543

== ENCOUNTER → 2021-01-10 08:42 | Outpatient (ROUT) | payer OTHER, MEDICAID, SELFPAY ==
[2020-12-31 13:10] VITALS: BMI 32.5
[2021-01-10 10:09] LABS: Add Manual Diff / Slide Review NO; Basophils Absolute Auto 100 /uL (0-100); Basophils Percent Auto 0.8 % (0-2); Eosinophils Absolute Auto 400 /uL (0-450); Eosinophils Percent Auto 2.8 % (2-4); Hematocrit 26.1 % (41-53); Hemoglobin 8.4 g/dL (13.5-17.5); Lymphocytes Absolute Auto 1200 /uL (1100-4500); Lymphocytes Percent Auto 7.5 % (25-40); Mean Corpuscular Hemoglobin 28.2 PG (26-34); Mean Corpuscular Volume 88.1 fL (80-100); Monocytes Absolute Auto 1300 /uL (0-900); Monocytes Percent Auto 8.4 % (3-14); Neutrophils Absolute Auto 12600 /uL (1500-7000); Neutrophils Percent Auto 80.5 % (50-75); Platelet Count 417 X10^3/uL (150-400); Red Blood Cell Count 2.97 X10^6/uL (4.5-5.9); Red Cell Distribution Width 15.6 % (11.6-14.8); White Blood Cell Count 15.6 X10^3/uL (4.5-11.0)
[2021-01-10 10:24] LABS: Alanine Aminotransferase 8 IU/L (<50); Albumin 3.2 g/dL (3.5-5.0); Albumin Globulin Ratio 1.1 (1.0-2.8); Alkaline Phosphatase 77 U/L (38-126); Aspartate Aminotransferase 10 IU/L (17-59); BUN Creatinine Ratio 12.3 (6-22); Bilirubin Total 0.2 mg/dL (0.2-1.3); Blood Urea Nitrogen 50 mg/dL (9-20); Calcium 8.6 mg/dL (8.4-10.2); Carbon Dioxide 16 mmol/L (22-32); Chloride 111 mmol/L (98-107); Estimated Glomerular Filt Rate 15.1 mL/min (>60); Glucose 117 mg/dL (80-110); HEMOLYSIS < 15 (0-50); Phosphorous 4.6 mg/dL (2.3-3.7); Potassium 5.1 mmol/L (3.4-5.1); Sodium 138 mmol/L (137-145); Total Protein 6.2 g/dL (6.3-8.2)
[2021-01-10 10:30] LABS: Iron 15 ug/dL (49-181)
[2021-01-10 10:38] LABS: Vitamin D 25 Hydroxy (D3) 42.7 ng/mL (30.0-100.0)
[2021-01-10 10:39] LABS: Percent Iron Saturation 8 % (20-50); Total Iron Binding Capacity 182 ug/dL (261-462)
[2021-01-10 10:56] LABS: Ferritin 155 ng/mL (18-464)
[2021-01-10 19:54] LABS: Bacteria Urine None Seen; RBC Urine None Seen (0-5/HPF)
[2021-01-10 20:14] LABS: Creatinine Urine Random 74.4 mg/dL
[2021-01-10 20:15] LABS: Appearance Urine UA CLEAR; Bilirubin Urine UA NEGATIVE (NEGATIVE); Color Urine UA YELLOW; Glucose Urine UA NEGATIVE (Negative); Ketones Urine UA NEGATIVE (NEGATIVE); Leukocyte Esterase Urine UA 2+ (NEGATIVE); Nitrite Urine UA POSITIVE (Negative); Occult Blood Urine UA 2+ (Negative); Protein Urine UA NEGATIVE (Negative); Urobilinogen Urine UA 0.2 E.U./dL (0.2); pH Urine UA 5.5 (4.5-8.0)
[2021-01-10 20:20] LABS: Microalbumi Creatinin Ratio Ur 14.7 ug/mg CR (<30); Microalbumin Urine Random 1.1 mg/dL (0-1.6)
[2021-01-10 21:24] LABS: Culture Indicated Urine Specimen Cultured; Squamous Epithelial Cell Urine 0-1 /HPF (0-5/HPF); WBC Urine 10-30/HPF (0-5/HPF)
[2021-01-11 12:11] LABS: PSA Free % 17.8 % (.); PSA, Total 0.9 ng/mL (0.0-4.0)
[2021-01-11 14:36] LABS: Calcium 8.5 mg/dL (8.6-10.2); Parathyroid Hormone, Intact 45 pg/mL (15-65)
== END ==
PROVIDERS: PCP Internal Medicine; Visit Provider Nurse Practitioner Family
DX: Z12.5 Encounter for screening for malignant neoplasm of prostate (principal); N39.0 Urinary tract infection, site not specified; N18.9 Chronic kidney disease, unspecified; N17.8 Other acute kidney failure; I69.922 Dysarthria following unspecified cerebrovascular disease; N13.30 Unspecified hydronephrosis
CPT/HCPCS: 36415; 80048; 80076; 81001; 82043; 82306; 82310; 82570; 82728; 83540; 83550; 83735; 83970; 84100; 84153; 84154; 84550; 85025; 87086

== ENCOUNTER 2021-01-12 11:36 | Inpatient (IN) | payer OTHER, MEDICAID, SELFPAY ==
[2020-12-31 13:10] VITALS: BMI 32.5
[2021-01-12] VITALS (37 sets, daily range): BP systolic 83–99; BP diastolic 50–83; PULSE 96–110; RESP 11–31; TEMP 36.4–36.9; O2SAT 96–100; BMI 35.5
--- NOTE | 2021-01-12 12:24 | DI.RAD.S_ITS ---
PROCEDURE: XR CHEST 1V INDICATIONS: sepsis TECHNIQUE: One view of the chest was acquired. COMPARISON: [facility], CR, XR CHEST 1V, 12/30/2020, 11:05. FINDINGS: Surgical changes and devices: None. Lungs and pleura: Trace left-sided pleural fluid collections. Patchy opacities noted in the lung bases bilaterally, left greater than right which could represent atelectasis or pneumonia. Mediastinum: Mediastinal contours appear normal. Heart size is normal. Bones and chest wall: No suspicious bony lesions. Overlying soft tissues appear unremarkable. IMPRESSION: Bibasilar opacities left greater than right which could represent atelectasis or pneumonia. Trace left-sided pleural effusion. Dictated by: Veronica Belcher MD, PhD on 01/12/2021 at 13:07 Approved by: Veronica Belcher MD, PhD on 01/12/2021 at 13:08
[2021-01-12 12:31] LABS: Appearance Urine UA CLOUDY; Bacteria Urine None Seen; Bilirubin Urine UA NEGATIVE (NEGATIVE); Color Urine UA YELLOW; Glucose Urine UA TRACE g/dL (Negative); Ketones Urine UA TRACE (NEGATIVE); Leukocyte Esterase Urine UA 2+ (NEGATIVE); Nitrite Urine UA NEGATIVE (Negative); Occult Blood Urine UA 3+ (Negative); Protein Urine UA 2+ (Negative); Urobilinogen Urine UA 0.2 E.U./dL (0.2)
[2021-01-12 12:35] LABS: Amorphous Sediment Urine 2+; Culture Indicated Urine Specimen Cultured; RBC Urine 30-100/HPF (0-5/HPF); WBC Urine 30-100/HPF (0-5/HPF)
[2021-01-12] MEDS: SODIUM CHLORIDE 0.9% 1,000 ML 1000 ML IV ×2 (12:50→13:40)
[2021-01-12 13:07] LABS: Add Manual Diff / Slide Review NO; Basophils Absolute Auto 200 /uL (0-100); Basophils Percent Auto 1.1 % (0-2); Eosinophils Absolute Auto 100 /uL (0-450); Eosinophils Percent Auto 0.6 % (2-4); Hematocrit 26.1 % (41-53); Hemoglobin 8.3 g/dL (13.5-17.5); Lymphocytes Absolute Auto 1400 /uL (1100-4500); Lymphocytes Percent Auto 7.1 % (25-40); Mean Corpuscular HGB Conc 31.9 % (30-36); Mean Corpuscular Hemoglobin 28.1 PG (26-34); Mean Corpuscular Volume 87.9 fL (80-100); Monocytes Absolute Auto 2400 /uL (0-900); Monocytes Percent Auto 11.9 % (3-14); Neutrophils Absolute Auto 16200 /uL (1500-7000); Neutrophils Percent Auto 79.3 % (50-75); Platelet Count 408 X10^3/uL (150-400); Red Blood Cell Count 2.97 X10^6/uL (4.5-5.9); Red Cell Distribution Width 15.7 % (11.6-14.8); White Blood Cell Count 20.4 X10^3/uL (4.5-11.0)
[2021-01-12] MEDS: PIPERACILLIN/TAZO 4.5 GM in SODIUM CHLORIDE 0.9% 100 ML 200 ML IV (13:15)
[2021-01-12 13:16] LABS: Lactate (Lactic Acid) 1.1 mmol/L (0.7-2.1)
[2021-01-12 13:17] LABS: Alanine Aminotransferase 15 IU/L (<50); Albumin 3.2 g/dL (3.5-5.0); Albumin Globulin Ratio 1.1 (1.0-2.8); Alkaline Phosphatase 123 U/L (38-126); Aspartate Aminotransferase 13 IU/L (17-59); BUN Creatinine Ratio 11.9 (6-22); Bilirubin Total 0.2 mg/dL (0.2-1.3); Blood Urea Nitrogen 64 mg/dL (9-20); Calcium 8.4 mg/dL (8.4-10.2); Carbon Dioxide 15 mmol/L (22-32); Chloride 107 mmol/L (98-107); Creatine Kinase < 20 U/L (55-170); Estimated Glomerular Filt Rate 10.9 mL/min (>60); Glucose 218 mg/dL (80-110); HEMOLYSIS < 15 (0-50); Sodium 131 mmol/L (137-145); Total Protein 6.2 g/dL (6.3-8.2)
[2021-01-12 13:21] LABS: Potassium 5.6 mmol/L (3.4-5.1)
[2021-01-12 13:29] LABS: Troponin I < 0.012 ng/mL (0.01-0.034)
[2021-01-12 13:34] LABS: Procalcitonin 0.64 ng/mL (<0.5)
--- NOTE | 2021-01-12 13:47 | ED.SEPSIS ---
HPI - Sepsis <Juanita Helms PA-C - Last Filed: 01/12/21 21:29> General Chief Complaint: Urogenital-Male Mode of arrival: EMS Source: patient and EMS Limitations: physical limitation Evaluation Sepsis Screen: No Definite Risk Sepsis Infection Criteria Present: Documented Infection Narrative: 60-year-old male PMH CKD, diabetes mellitus, HLD, HTN, MS, history of MRSA UTI w/ indweling herrera who presents to the ER via EMS from care facility sent for low blood pressure and high heart rate with concerns for infection. Review of records reveals hospitalizations for MRSA UTI related sepsis. Patient denies any symptoms to include dysuria, hematuria, abdominal pain, vomiting, fever, chest pain, shortness of breath, or orthopnea. Review of Systems <Juanita Helms PA-C - Last Filed: 01/12/21 21:29> Review of Systems Narrative: General: denies fever, chills Head/Neck: denies headache, neck pain Eyes: denies visual changes, eye pain Cardio: denies chest pain, palpitations Respiratory: denies shortness of breath, cough GI: denies abdominal pain, nausea, vomiting, or diarrhea : denies dysuria, hematuria MSK: denies joint pain, muscle weakness Skin: denies rash, itching Neuro: denies numbness, tingling Patient History <Juanita Helms PA-C - Last Filed: 01/12/21 21:29> Medical History Chronic anemia Chronic kidney disease Hyperlipidemia Hypertension Multiple sclerosis Neurogenic bladder Stroke Type 2 diabetes mellitus Social History household members: caregiver Smoking Status: Never smoker alcohol intake: former Smoking Status: Never smoker alcohol intake frequency: 0-2 drinks per day Substance Use Type: does not use Exam <Juanita Helms PA-C - Last Filed: 01/12/21 21:29> Narrative Exam Narrative: Independently reviewed vitals signs and nursing notes. General: Awake, alert, nontoxic, no cardiorespiratory distress Head/Neck: Atraumatic, neck full range of motion Eyes: EOMI, conjunctiva normal Nose: nares patent, no rhinorrhea Cardio: Regular rate and rhythm, no peripheral edema Respiratory: CTAB unlabored without wheezing, stridor, or rales. No retractions. GI: Abdomen soft, nontender MSK: Moves all extremities, neurovascularly intact Skin: Normal capillary refill, no rash Neuro: Normal speech and cognition, normal gait Initial Vital Signs Initial Vital Signs: Vital Signs Temperature 98.4 F 01/12/21 11:40 Pulse Rate 103 H 01/12/21 11:40 Respiratory Rate 22 01/12/21 11:40 Blood Pressure 99/58 L 01/12/21 11:40 Pulse Oximetry 98 01/12/21 11:40 <Samir Mcpherson MD - Last Filed: 03/10/21 07:43> Initial Vital Signs Initial Vital Signs: Vital Signs Temperature 98.4 F 01/12/21 11:40 Pulse Rate 103 H 01/12/21 11:40 Respiratory Rate 01/12/21 11:40 Blood Pressure 99/58 L 01/12/21 11:40 Pulse Oximetry 98 01/12/21 11:40 Course <Juanita Helms PA-C - Last Filed: 01/12/21 21:29> Orders Ordered: Discontinued Medications Acetaminophen (Acetaminophen 325 Mg Tablet) 650 mg PO Q6HR PRN PRN Reason: Fever/Mild Pain (1-3) Last Admin: 01/13/21 09:16 Dose: 650 mg Documented by: STEWART Hydrocodone Bitart/Acetaminophen (Hydrocodone/Acet 5/325 Tablet) 1 tab PO Q6H PRN PRN Reason: Pain (Scale Score 7-10) Last Admin: 01/13/21 09:16 Dose: 1 tab Documented by: STEWART Aspirin (Aspirin Ec 81 Mg Tablet) 81 mg PO DAILY [facility] Last Admin: 01/13/21 09:16 Dose: 81 mg Documented by: STEWART Atorvastatin Calcium (Atorvastatin 20 Mg Tablet) 20 mg PO BEDTIME [facility] Last Admin: 01/12/21 20:30 Dose: 20 mg Documented by: DON Enoxaparin Sodium (Enoxaparin 40 Mg/0.4 Ml Syringe) 40 mg SUBCUT DAILY [facility] Enoxaparin Sodium (Enoxaparin 30 Mg/0.3 Ml Syringe) 30 mg SUBCUT DAILY [facility] Last Admin: 01/13/21 09:17 Dose: 30 mg Documented by: STEWART Ferrous Sulfate (Ferrous Sulfate 325 Mg Tablet) 325 mg PO DAILY [facility] Last Admin: 01/13/21 09:17 Dose: 325 mg Documented by: STEWART Piperacillin Sod/Tazobactam (Sod 4.5 gm/ Sodium Chloride) 100 mls @ 200 mls/hr IV NOW ONE Stop: 01/12/21 12:21 Last Infusion: 01/12/21 13:55 Dose: 0 mls/hr Documented by: Admin: 01/12/21 13:15 Dose: 200 mls/hr Documented by: KWAMEOR Sodium Chloride (Normal Saline 0.9%) 1,000 mls @ 1,000 mls/hr IV BOLUS ONE Stop: 01/12/21 13:19 Last Infusion: 01/12/21 13:41 Dose: 0 mls/hr Documented by: Admin: 01/12/21 12:50 Dose: 1,000 mls/hr Documented by: SCOOBY Vancomycin HCl/Dextrose (Vancomycin) 2,000 mg in 400 mls @ 200 mls/hr IV NOW ONE Stop: 01/12/21 15:31 Last Infusion: 01/12/21 16:00 Dose: 0 mls/hr Documented by: Admin: 01/12/21 14:02 Dose: 200 mls/hr Documented by: ATAYLOR Sodium Chloride (Normal Saline 0.9%) 1,000 mls @ 1,000 mls/hr IV BOLUS ONE Stop: 01/12/21 14:41 Last Infusion: 01/12/21 14:39 Dose: 0 mls/hr Documented by: Admin: 01/12/21 13:40 Dose: 1,000 mls/hr Documented by: SCOOBY Norepinephrine Bitartrate 4 mg (/ Dextrose) 254 mls @ 30.48 mls/hr IV TITRATE [facility]; Protocol Last Admin: 01/12/21 18:08 Dose: Not Given Documented by: STEWART Cefepime HCl 1 gm/ Sodium (Chloride) 100 mls @ 200 mls/hr IV DAILY [facility] Last Admin: 01/13/21 09:17 Dose: 200 mls/hr Documented by: Infusion: 01/12/21 21:05 Dose: 0 mls/hr Documented by: Admin: 01/12/21 20:31 Dose: 200 mls/hr Documented by: DON Lactated Ringer's (Lactated Ringers) 1,000 mls @ 75 mls/hr IV CONT [facility] Stop: 01/13/21 16:04 Last Admin: 01/13/21 02:45 Dose: 75 mls/hr Documented by: DON Insulin Glargine (Insulin Glargine 100 Unit/Ml 3ml Pen) 30 unit SUBCUT 2100 [facility] Last Admin: 01/12/21 21:00 Dose: 30 unit Documented by: DON Cosigned by: TERESA Insulin Human Lispro (Insulin Lispro 100 Unit/Ml 3ml Vial) 0 unit SUBCUT ACHS [facility]; Protocol Last Admin: 01/13/21 11:50 Dose: 3 unit Documented by: STEWART Cosigned by: NOEL Admin: 01/13/21 07:56 Dose: 1 unit Documented by: STEWART Cosigned by: SARITA Admin: 01/12/21 20:59 Dose: 2 unit Documented by: DON Cosigned by: TERESA Admin: 01/12/21 18:16 Dose: 3 unit Documented by: STEWART Cosigned by: TERESA Lidocaine (Lidocaine Patch 1 Each Adh..Patch) 1 each TOP DAILY [facility] Last Admin: 01/13/21 09:17 Dose: Not Given Documented by: Admin: 01/12/21 18:19 Dose: Not Given Documented by: STEWART Lidocaine (Lidocaine 5% Oint 35 Gm) 1 applic TOP QID PRN PRN Reason: Pain, Mild (1-3) Lidocaine (Remove Lidocaine Patch) 1 each TOP BEDTIME [facility] Ondansetron HCl (Ondansetron 4 Mg/2 Ml Inj) 4 mg IV Q8HR PRN PRN Reason: Nausea And Vomiting Pantoprazole Sodium (Pantoprazole Dr 40 Mg Tablet) 40 mg PO DAILY [facility] Last Admin: 01/13/21 09:16 Dose: 40 mg Documented by: STEWART Polyethylene Glycol (Polyethylene Glycol 3350 17 Gm Powd.Pack) 17 gm PO DAILY [facility] Last Admin: 01/13/21 09:17 Dose: 17 gm Documented by: STEWART Sodium Polystyrene Sulfonate (Sodium Polystyrene Sulfon/Sorb 15 Gm/60 Ml Cup) 15 gm PO NOW ONE Stop: 01/12/21 22:02 Last Admin: 01/12/21 22:30 Dose: 15 gm Documented by: DON Tamsulosin HCl (Tamsulosin 0.4 Mg Capsule) 0.4 mg PO DAILY [facility] Last Admin: 01/13/21 09:16 Dose: 0.4 mg Documented by: STEWART Vancomycin HCl (Vancomycin Per Pharmacy) 1 request MIS NOW ONE Stop: 01/12/21 17:06 Last Admin: 01/12/21 20:01 Dose: Not Given Documented by: DON Vancomycin HCl (Vancomycin Trough) 1 request MIS 1200 [facility] Stop: 01/13/21 12:01 Vancomycin HCl (Vancomycin Per Pharmacy) 1 request MIS NOW PRN PRN Reason: infection Vancomycin HCl (Vancomycin Trough) 1 request [facility] 0600 [facility] Stop: 01/14/21 06:01 Vital Signs Vital signs: Vital Signs - 8 hr 01/12/21 13:29 01/12/21 13:30 01/12/21 13:45 Pulse Rate 97 H 96 H 99 H Respiratory Rate 20 18 20 Blood Pressure 97/56 L 91/50 L 85/83 L Pulse Oximetry 99 99 99 01/12/21 14:02 01/12/21 14:03 01/12/21 14:15 Pulse Rate 97 H 98 H 97 H Respiratory Rate 18 21 Blood Pressure 96/63 86/53 L Pulse Oximetry 99 98 99 01/12/21 14:30 01/12/21 14:36 01/12/21 14:38 Pulse Rate 99 H 101 H 101 H Respiratory Rate 21 23 16 Blood Pressure 84/53 L 93/53 L 93/53 L Pulse Oximetry 99 100 99 01/12/21 14:55 01/12/21 15:00 01/12/21 15:05 Pulse Rate 101 H 100 H 100 H Respiratory Rate 11 L 22 23 Blood Pressure 90/51 L 83/53 L Pulse Oximetry 100 100 100 01/12/21 15:15 01/12/21 15:30 Pulse Rate 100 H 101 H Respiratory Rate 22 22 Blood Pressure 85/52 L 91/53 L Pulse Oximetry 99 100 <Samir Mcpherson MD - Last Filed: 03/10/21 07:43> Orders Ordered: Discontinued Medications Acetaminophen (Acetaminophen 325 Mg Tablet) 650 mg PO Q6HR PRN PRN Reason: Fever/Mild Pain (1-3) Last Admin: 01/13/21 09:16 Dose: 650 mg Documented by: STEWART Hydrocodone Bitart/Acetaminophen (Hydrocodone/Acet 5/325 Tablet) 1 tab PO Q6H PRN PRN Reason: Pain (Scale Score 7-10) Last Admin: 01/13/21 09:16 Dose: 1 tab Documented by: STEWART Aspirin (Aspirin Ec 81 Mg Tablet) 81 mg PO DAILY [facility] Last Admin: 01/13/21 09:16 Dose: 81 mg Documented by: STEWART Atorvastatin Calcium (Atorvastatin 20 Mg Tablet) 20 mg PO BEDTIME [facility] Last Admin: 01/12/21 20:30 Dose: 20 mg Documented by: DON Enoxaparin Sodium (Enoxaparin 40 Mg/0.4 Ml Syringe) 40 mg SUBCUT DAILY [facility] Enoxaparin Sodium (Enoxaparin 30 Mg/0.3 Ml Syringe) 30 mg SUBCUT DAILY [facility] Last Admin: 01/13/21 09:17 Dose: 30 mg Documented by: STEWART Ferrous Sulfate (Ferrous Sulfate 325 Mg Tablet) 325 mg PO DAILY [facility] Last Admin: 01/13/21 09:17 Dose: 325 mg Documented by: STEWART Piperacillin Sod/Tazobactam (Sod 4.5 gm/ Sodium Chloride) 100 mls @ 200 mls/hr IV NOW ONE Stop: 01/12/21 12:21 Last Infusion: 01/12/21 13:55 Dose: 0 mls/hr Documented by: Admin: 01/12/21 13:15 Dose: 200 mls/hr Documented by: SCOOBY Sodium Chloride (Normal Saline 0.9%) 1,000 mls @ 1,000 mls/hr IV BOLUS ONE Stop: 01/12/21 13:19 Last Infusion: 01/12/21 13:41 Dose: 0 mls/hr Documented by: Admin: 01/12/21 12:50 Dose: 1,000 mls/hr Documented by: SCOOBY Vancomycin HCl/Dextrose (Vancomycin) 2,000 mg in 400 mls @ 200 mls/hr IV NOW ONE Stop: 01/12/21 15:31 Last Infusion: 01/12/21 16:00 Dose: 0 mls/hr Documented by: Admin: 01/12/21 14:02 Dose: 200 mls/hr Documented by: SCOOBY Sodium Chloride (Normal Saline 0.9%) 1,000 mls @ 1,000 mls/hr IV BOLUS ONE Stop: 01/12/21 14:41 Last Infusion: 01/12/21 14:39 Dose: 0 mls/hr Documented by: Admin: 01/12/21 13:40 Dose: 1,000 mls/hr Documented by: SCOOBY Norepinephrine Bitartrate 4 mg (/ Dextrose) 254 mls @ 30.48 mls/hr IV TITRATE [facility]; Protocol Last Admin: 01/12/21 18:08 Dose: Not Given Documented by: STEWART Cefepime HCl 1 gm/ Sodium (Chloride) 100 mls @ 200 mls/hr IV DAILY [facility] Last Admin: 01/13/21 09:17 Dose: 200 mls/hr Documented by: Infusion: 01/12/21 21:05 Dose: 0 mls/hr Documented by: Admin: 01/12/21 20:31 Dose: 200 mls/hr Documented by: DON Lactated Ringer's (Lactated Ringers) 1,000 mls @ 75 mls/hr IV CONT [facility] Stop: 01/13/21 16:04 Last Admin: 01/13/21 02:45 Dose: 75 mls/hr Documented by: DON Insulin Glargine (Insulin Glargine 100 Unit/Ml 3ml Pen) 30 unit SUBCUT 2100 [facility] Last Admin: 01/12/21 21:00 Dose: 30 unit Documented by: DON Cosigned by: TERESA Insulin Human Lispro (Insulin Lispro 100 Unit/Ml 3ml Vial) 0 unit SUBCUT ACHS [facility]; Protocol Last Admin: 01/13/21 11:50 Dose: 3 unit Documented by: STEWART Cosigned by: NOEL Admin: 01/13/21 07:56 Dose: 1 unit Documented by: STEWART Cosigned by: SARITA Admin: 01/12/21 20:59 Dose: 2 unit Documented by: DON Cosigned by: TERESA Admin: 01/12/21 18:16 Dose: 3 unit Documented by: STEWART Cosigned by: CWHITE Lidocaine (Lidocaine Patch 1 Each Adh..Patch) 1 each TOP DAILY [facility] Last Admin: 01/13/21 09:17 Dose: Not Given Documented by: Admin: 01/12/21 18:19 Dose: Not Given Documented by: STEWART Lidocaine (Lidocaine 5% Oint 35 Gm) 1 applic TOP QID PRN PRN Reason: Pain, Mild (1-3) Lidocaine (Remove Lidocaine Patch) 1 each TOP BEDTIME [facility] Ondansetron HCl (Ondansetron 4 Mg/2 Ml Inj) 4 mg IV Q8HR PRN PRN Reason: Nausea And Vomiting Pantoprazole Sodium (Pantoprazole Dr 40 Mg Tablet) 40 mg PO DAILY [facility] Last Admin: 01/13/21 09:16 Dose: 40 mg Documented by: STEWART Polyethylene Glycol (Polyethylene Glycol 3350 17 Gm Powd.Pack) 17 gm PO DAILY [facility] Last Admin: 01/13/21 09:17 Dose: 17 gm Documented by: STEWART Sodium Polystyrene Sulfonate (Sodium Polystyrene Sulfon/Sorb 15 Gm/60 Ml Cup) 15 gm PO NOW ONE Stop: 01/12/21 22:02 Last Admin: 01/12/21 22:30 Dose: 15 gm Documented by: DON Tamsulosin HCl (Tamsulosin 0.4 Mg Capsule) 0.4 mg PO DAILY [facility] Last Admin: 01/13/21 09:16 Dose: 0.4 mg Documented by: STEWART Vancomycin HCl (Vancomycin Per Pharmacy) 1 request MISC NOW ONE Stop: 01/12/21 17:06 Last Admin: 01/12/21 20:01 Dose: Not Given Documented by: DON Vancomycin HCl (Vancomycin Trough) 1 request MISC 1200 [facility] Stop: 01/13/21 12:01 Vancomycin HCl (Vancomycin Per Pharmacy) 1 request MISC NOW PRN PRN Reason: infection Vancomycin HCl (Vancomycin Trough) 1 request MISC 0600 [facility] Stop: 01/14/21 06:01 Vital Signs Vital signs: Vital Signs - 8 hr 01/12/21 13:29 01/12/21 13:30 01/12/21 13:45 Pulse Rate 97 H 96 H 99 H Respiratory Rate 20 18 20 Blood Pressure 97/56 L 91/50 L 85/83 L Pulse Oximetry 99 99 99 01/12/21 14:02 01/12/21 14:03 01/12/21 14:15 Pulse Rate 97 H 98 H 97 H Respiratory Rate 18 21 Blood Pressure 96/63 86/53 L Pulse Oximetry 99 98 99 01/12/21 14:30 01/12/21 14:36 01/12/21 14:38 Pulse Rate 99 H 101 H 101 H Respiratory Rate 21 23 16 Blood Pressure 84/53 L 93/53 L 93/53 L Pulse Oximetry 99 100 99 01/12/21 14:55 01/12/21 15:00 01/12/21 15:05 Pulse Rate 101 H 100 H 100 H Respiratory Rate 11 L 22 23 Blood Pressure 90/51 L 83/53 L Pulse Oximetry 100 100 100 01/12/21 15:15 01/12/21 15:30 Pulse Rate 100 H 101 H Respiratory Rate 22 22 Blood Pressure 85/52 L 91/53 L Pulse Oximetry 99 100 MDM - Sepsis <Juanita Helms PA-C - Last Filed: 01/12/21 21:29> Lab Data Result diagrams: 01/13/21 03:55 01/13/21 13:40 Labs: Lab Results 01/12/21 01/12/21 01/12/21 Range/Units 12:25 12:49 12:49 WBC 20.4 H (4.5-11.0) X10^3/uL RBC 2.97 L (4.5-5.9) X10^6/uL Hgb 8.3 L (13.5-17.5) g/dL Hct 26.1 L (41-53) % MCV 87.9 (80-100) fL MCH 28.1 (26-34) PG MCHC 31.9 (30-36) % RDW 15.7 H (11.6-14.8) % Plt Count 408 H (150-400) X10^3/uL Neut % (Auto) 79.3 H (50-75) % Lymph % (Auto) 7.1 L (25-40) % [place] % (Auto) 11.9 (3-14) % Eos % (Auto) 0.6 L (2-4) % Baso % (Auto) 1.1 (0-2) % Neut # (Auto) 29632 H (0071-6974) /uL Lymph # (Auto) 1400 (9319-6449) /uL [place] # (Auto) 2400 H (0-900) /uL Eos # (Auto) 100 (0-450) /uL Baso # (Auto) 200 H (0-100) /uL Sodium 131 L (137-145) mmol/L Potassium 5.6 H (3.4-5.1) mmol/L Chloride 107 (98-107) mmol/L Carbon Dioxide 15 L (22-32) mmol/L BUN 64 H (9-20) mg/dL Creatinine 5.37 H (0.66-1.25) mg/dL Estimated GFR 10.9 L (>60) mL/min BUN/Creatinine Ratio 11.9 (6-22) Glucose 218 H D (80-110) mg/dL Lactate (0.7-2.1) mmol/L Calcium 8.4 (8.4-10.2) mg/dL Total Bilirubin 0.2 (0.2-1.3) mg/dL AST 13 L (17-59) IU/L ALT 15 (<50) IU/L Alkaline Phosphatase 123 (38-126) U/L Total Creatine Kinase < 20 L (55-170) U/L CK-MB (CK-2) TNP CK-MB (CK-2) Rel Index TNP Troponin I < 0.012 (0.01-0.034) ng/mL NT-Pro-B Natriuret Pep (<125) pg/mL Total Protein 6.2 L (6.3-8.2) g/dL Albumin 3.2 L (3.5-5.0) g/dL Globulin 3.0 (1.7-4.1) g/dL Albumin/Globulin Ratio 1.1 (1.0-2.8) Procalcitonin 0.64 H (<0.5) ng/mL Urine Color Yellow Urine Appearance Cloudy Urine pH 5.0 (4.5-8.0) Ur Specific [place] 1.020 (1.000-1.035) Urine Protein 2+ H (Negative) Urine Glucose (UA) Trace H (Negative) g/dL Urine Ketones Trace H (NEGATIVE) Urine Occult Blood 3+ H (Negative) Urine Nitrate Negative (Negative) Urine Bilirubin Negative (NEGATIVE) Urine Urobilinogen 0.2 (0.2) E.U./dL Ur Leukocyte Esterase 2+ H (NEGATIVE) Urine RBC 30-100/hpf H (0-5/HPF) Urine WBC 30-100/hpf H (0-5/HPF) Amorphous Sediment 2+ Urine Bacteria None seen (None) Ur Culture Indicated? Specimen cultured SARS-CoV-2 (PCR) (Negative) 01/12/21 01/12/21 01/12/21 Range/Units 12:49 12:49 12:58 WBC (4.5-11.0) X10^3/uL RBC (4.5-5.9) X10^6/uL Hgb (13.5-17.5) g/dL Hct (41-53) % MCV (80-100) fL MCH (26-34) PG MCHC (30-36) % RDW (11.6-14.8) % Plt Count (150-400) X10^3/uL Neut % (Auto) (50-75) % Lymph % (Auto) (25-40) % [place] % (Auto) (3-14) % Eos % (Auto) (2-4) % Baso % (Auto) (0-2) % Neut # (Auto) (9098-5661) /uL Lymph # (Auto) (5497-6070) /uL [place] # (Auto) (0-900) /uL Eos # (Auto) (0-450) /uL Baso # (Auto) (0-100) /uL Sodium (137-145) mmol/L Potassium (3.4-5.1) mmol/L Chloride (98-107) mmol/L Carbon Dioxide (22-32) mmol/L BUN (9-20) mg/dL Creatinine (0.66-1.25) mg/dL Estimated GFR (>60) mL/min BUN/Creatinine Ratio (6-22) Glucose (80-110) mg/dL Lactate 1.1 (0.7-2.1) mmol/L Calcium (8.4-10.2) mg/dL Total Bilirubin (0.2-1.3) mg/dL AST (17-59) IU/L ALT (<50) IU/L Alkaline Phosphatase (38-126) U/L Total Creatine Kinase (55-170) U/L CK-MB (CK-2) CK-MB (CK-2) Rel Index Troponin I (0.01-0.034) ng/mL NT-Pro-B Natriuret Pep 1430 H (<125) pg/mL Total Protein (6.3-8.2) g/dL Albumin (3.5-5.0) g/dL Globulin (1.7-4.1) g/dL Albumin/Globulin Ratio (1.0-2.8) Procalcitonin (<0.5) ng/mL Urine Color Urine Appearance Urine pH (4.5-8.0) Ur Specific [place] (1.000-1.035) Urine Protein (Negative) Urine Glucose (UA) (Negative) g/dL Urine Ketones (NEGATIVE) Urine Occult Blood (Negative) Urine Nitrate (Negative) Urine Bilirubin (NEGATIVE) Urine Urobilinogen (0.2) E.U./dL Ur Leukocyte Esterase (NEGATIVE) Urine RBC (0-5/HPF) Urine WBC (0-5/HPF) Amorphous Sediment Urine Bacteria (None) Ur Culture Indicated? SARS-CoV-2 (PCR) Negative (Negative) Imaging Data Chest x-ray: Radiologist's Impression: PROCEDURE:? XR CHEST 1V ? INDICATIONS:? sepsis ? TECHNIQUE:? One view of the chest was acquired.? ? COMPARISON:? [facility], , XR CHEST 1V, 12/30/2020, 11:05. ? FINDINGS:? ? Surgical changes and devices:? None.? ? Lungs and pleura:? Trace left-sided pleural fluid collections.? Patchy opacities noted in the lung bases bilaterally, left greater than right which could represent atelectasis or pneumonia. ? Mediastinum:? Mediastinal contours appear normal.? Heart size is normal.? ? Bones and chest wall:? No suspicious bony lesions.? Overlying soft tissues appear unremarkable.? ? IMPRESSION:? Bibasilar opacities left greater than right which could represent atelectasis or pneumonia.? Trace left-sided pleural effusion. ? ? Dictated by: Veronica Belcher MD, PhD on 01/12/2021 at 13:07 ? ? Approved by: Veronica Belcher MD, PhD on 01/12/2021 at 13:08 ? ECG Data Interpretation: EKG independently reviewed by myself and ED attending at 1320 reveals normal sinus rhythm at 96 bpm with regular axis and intervals. No STEMI, ST segment changes, arrhythmia, or acute ischemic changes. MDM Narrative Medical decision making narrative: 60-year-old male PMH MS, DM, HTN, HLD, hx of MRSA UTI found to be septic secondary to UTI. Blood cultures drawn, IV fluids started, and empirically started on Zosyn and vancomycin. LA 1.1. Leukocytosis (20.4), MARGE creatinine (5.37). EKG without arrhythmia or ischemia. Patient was started on titrated Levophed at time of transfer to the ICU for soft BP's 85-90s, continued with baseline mentation throughout ED course. Likely aspect of fluid overload BNP 1430 with worsened pericardial effusion (1.4cm previously, 2.7 cm today) as well as pleural effusions. No orthopnea or shortness of breath. Patient was informed of lab and imaging results, diagnoses, consulting physicians, and treatment plan. I have spoken with the patient in regard to admission, patient understands and agrees. I have communicated the patient's evaluation and treatment plan to the admitting physician who agrees with admission. All questions answered at this time. Consult to the hospitalist, Dr. Ordonez. Agrees with evaluation and plan. Agrees to admit patient. <Samir Mcpherson MD - Last Filed: 03/10/21 07:43> Lab Data Labs: Lab Results 01/12/21 01/12/21 01/12/21 Range/Units 12:25 12:49 12:49 WBC 20.4 H (4.5-11.0) X10^3/uL RBC 2.97 L (4.5-5.9) X10^6/uL Hgb 8.3 L (13.5-17.5) g/dL Hct 26.1 L (41-53) % MCV 87.9 (80-100) fL MCH 28.1 (26-34) PG MCHC 31.9 (30-36) % RDW 15.7 H (11.6-14.8) % Plt Count 408 H (150-400) X10^3/uL Neut % (Auto) 79.3 H (50-75) % Lymph % (Auto) 7.1 L (25-40) % [place] % (Auto) 11.9 (3-14) % Eos % (Auto) 0.6 L (2-4) % Baso % (Auto) 1.1 (0-2) % Neut # (Auto) 74337 H (4222-0977) /uL Lymph # (Auto) 1400 (6534-7552) /uL [place] # (Auto) 2400 H (0-900) /uL Eos # (Auto) 100 (0-450) /uL Baso # (Auto) 200 H (0-100) /uL Sodium 131 L (137-145) mmol/L Potassium 5.6 H (3.4-5.1) mmol/L Chloride 107 (98-107) mmol/L Carbon Dioxide 15 L (22-32) mmol/L BUN 64 H (9-20) mg/dL Creatinine 5.37 H (0.66-1.25) mg/dL Estimated GFR 10.9 L (>60) mL/min BUN/Creatinine Ratio 11.9 (6-22) Glucose 218 H D (80-110) mg/dL Lactate (0.7-2.1) mmol/L Calcium 8.4 (8.4-10.2) mg/dL Total Bilirubin 0.2 (0.2-1.3) mg/dL AST 13 L (17-59) IU/L ALT 15 (<50) IU/L Alkaline Phosphatase 123 (38-126) U/L Total Creatine Kinase < 20 L (55-170) U/L CK-MB (CK-2) TNP CK-MB (CK-2) Rel Index TNP Troponin I < 0.012 (0.01-0.034) ng/mL NT-Pro-B Natriuret Pep (<125) pg/mL Total Protein 6.2 L (6.3-8.2) g/dL Albumin 3.2 L (3.5-5.0) g/dL Globulin 3.0 (1.7-4.1) g/dL Albumin/Globulin Ratio 1.1 (1.0-2.8) Procalcitonin 0.64 H (<0.5) ng/mL Urine Color Yellow Urine Appearance Cloudy Urine pH 5.0 (4.5-8.0) Ur Specific [place] 1.020 (1.000-1.035) Urine Protein 2+ H (Negative) Urine Glucose (UA) Trace H (Negative) g/dL Urine Ketones Trace H (NEGATIVE) Urine Occult Blood 3+ H (Negative) Urine Nitrate Negative (Negative) Urine Bilirubin Negative (NEGATIVE) Urine Urobilinogen 0.2 (0.2) E.U./dL Ur Leukocyte Esterase 2+ H (NEGATIVE) Urine RBC 30-100/hpf H (0-5/HPF) Urine WBC 30-100/hpf H (0-5/HPF) Amorphous Sediment 2+ Urine Bacteria None seen (None) Ur Culture Indicated? Specimen cultured SARS-CoV-2 (PCR) (Negative) 01/12/21 01/12/21 01/12/21 Range/Units 12:49 12:49 12:58 WBC (4.5-11.0) X10^3/uL RBC (4.5-5.9) X10^6/uL Hgb (13.5-17.5) g/dL Hct (41-53) % MCV (80-100) fL MCH (26-34) PG MCHC (30-36) % RDW (11.6-14.8) % Plt Count (150-400) X10^3/uL Neut % (Auto) (50-75) % Lymph % (Auto) (25-40) % [place] % (Auto) (3-14) % Eos % (Auto) (2-4) % Baso % (Auto) (0-2) % Neut # (Auto) (1859-8825) /uL Lymph # (Auto) (1800-0849) /uL [place] # (Auto) (0-900) /uL Eos # (Auto) (0-450) /uL Baso # (Auto) (0-100) /uL Sodium (137-145) mmol/L Potassium (3.4-5.1) mmol/L Chloride (98-107) mmol/L Carbon Dioxide (22-32) mmol/L BUN (9-20) mg/dL Creatinine (0.66-1.25) mg/dL Estimated GFR (>60) mL/min BUN/Creatinine Ratio (6-22) Glucose (80-110) mg/dL Lactate 1.1 (0.7-2.1) mmol/L Calcium (8.4-10.2) mg/dL Total Bilirubin (0.2-1.3) mg/dL AST (17-59) IU/L ALT (<50) IU/L Alkaline Phosphatase (38-126) U/L Total Creatine Kinase (55-170) U/L CK-MB (CK-2) CK-MB (CK-2) Rel Index Troponin I (0.01-0.034) ng/mL NT-Pro-B Natriuret Pep 1430 H (<125) pg/mL Total Protein (6.3-8.2) g/dL Albumin (3.5-5.0) g/dL Globulin (1.7-4.1) g/dL Albumin/Globulin Ratio (1.0-2.8) Procalcitonin (<0.5) ng/mL Urine Color Urine Appearance Urine pH (4.5-8.0) Ur Specific [place] (1.000-1.035) Urine Protein (Negative) Urine Glucose (UA) (Negative) g/dL Urine Ketones (NEGATIVE) Urine Occult Blood (Negative) Urine Nitrate (Negative) Urine Bilirubin (NEGATIVE) Urine Urobilinogen (0.2) E.U./dL Ur Leukocyte Esterase (NEGATIVE) Urine RBC (0-5/HPF) Urine WBC (0-5/HPF) Amorphous Sediment Urine Bacteria (None) Ur Culture Indicated? SARS-CoV-2 (PCR) Negative (Negative) Discharge Plan Departure Patient Disposition: Admitted As Inpatient Clinical Impression: Acute UTI (urinary tract infection), MARGE (acute kidney injury), Effusion, pericardium Sepsis Qualifiers: Sepsis type: sepsis due to unspecified organism Sepsis acute organ dysfunction status: with acute organ dysfunction Severe sepsis acute organ dysfunction type: acute renal failure Acute renal failure type: unspecified Severe sepsis shock status: unspecified Qualified Code(s): A41.9 - Sepsis, unspecified organism Leukocytosis Qualifiers: Leukocytosis type: unspecified Qualified Code(s): D72.829 - Elevated white blood cell count, unspecified Admit Date/Time: 01/12/21 15:30 Admit Provider: Otto Ordonez
[2021-01-12 13:59] LABS: NT-proBNP (BNP-Adult 18+) 1430 pg/mL (<125)
[2021-01-12] MEDS: VANCOMYCIN 2,000 MG/400 ML PIGGYBACK 200 MG IV (14:02)
--- NOTE | 2021-01-12 14:20 | PC.NURSE ---
Patient is difficult stick for IV access, ad writer RN and Lisseth INIGUEZ attempted unsuccessfully, KAVON INIGUEZ called and inserted IV. Analia CLARK requested another access, KAVON INIGUEZ called x2 times without answer, Analia CLARK notified.
--- NOTE | 2021-01-12 14:23 | DI.CT.S_ITS ---
PROCEDURE: CT KIDNEY URETER BLADDER (KUB) INDICATIONS: sepsis TECHNIQUE: Axial sections were acquired from the lung bases to the pubic symphysis. Coronal and sagittal reformats were performed. For radiation dose reduction, the following was used: automated exposure control, adjustment of mA and/or kV according to patient size. COMPARISON: [facility], CT, CT KIDNEY URETER BLADDER (KUB), 12/30/2020, 11:14. FINDINGS: Lower thorax: There are now moderate bilateral pleural effusions with associated compressive atelectasis. Large pericardial effusion now measures up to 2.75 cm in thickness, significantly increased from the prior exam. Liver: Normal in size and attenuation. No contour deformity present. Biliary system: No calcified cholelithiasis or pericholecystic inflammation. No intra or extrahepatic bile duct dilatation. Pancreas: Unremarkable without mass or inflammation evident. Spleen: Normal in size and density. Adrenals: Normal morphology and density. Reproductive system: Unremarkable as visualized. Urinary system: Mild bilateral hydronephrosis and hydroureter has improved from the prior. Again, no obstructing lesion present. The Hightower catheter in the bladder with diffuse bladder wall thickening present.6 Gastrointestinal system: The bowel appears unremarkable with no evidence of bowel obstruction or inflammation. The stomach appears unremarkable. Moderate fecal debris present throughout the colon, similar to the prior. Appendix: No findings to suggest acute appendicitis. Peritoneal spaces: Stable retroperitoneal adenopathy. There is a left periaortic node measuring 1.5 cm in short axis, unchanged. Smaller nonenlarged retroperitoneal nodes noted. No free air or free fluid. There is nonspecific retroperitoneal edema which is slightly more prominent than the prior exam. Vasculature: The IVC, aorta and iliac vasculature are unremarkable. Musculoskeletal: Normal bone mineralization. Degenerative disc disease and arthropathy noted in lower lumbar spine. No acute fractures. Abdominal wall intact without evidence of ventral or inguinal hernias. IMPRESSION: 1. Pericardial effusion has significantly increased in the interval, now measures up to 2.75 cm in thickness, previously 1.4 cm. Moderate bibasilar pleural effusions are new from the prior exam as well. 2. Persistent but improved bilateral hydronephrosis and hydroureter. Hightower catheter is in the bladder with diffuse bladder wall thickening, similar prior. Increased retroperitoneal non-specific edema may related to chronic hydronephrosis. 3. Stable retroperitoneal adenopathy measuring up to 1.5 cm. Note: Critical results were discussed with Dr. Helms at 02:06 PM [place] time on 01/12/21 Approved by: Jose Bravo M.D. on 01/12/2021 at 14:07
[2021-01-12 14:32] LABS: COVID19 - ADMIT (NP swab/PCR) Negative (Negative)
--- NOTE | 2021-01-12 15:17 | PC.NURSE ---
Continued attempts to call KAVON RN unsuccessful, Bachle PA aware.
--- NOTE | 2021-01-12 16:52 | PM.HP.1 ---
History of Present Illness History of Present Illness Chief complaint: Low blood pressure, anibal heart rate Narrative: Patient is a 60-year-old male with known history of multiple sclerosis, functional quadriplegia, neurogenic bladder, insulin-requiring type 2 diabetes, chronic kidney disease, chronic anemia who resides at [facility]. He was recently here about a week ago with septic shock, improved with antibiotics, discharged on oral doxycycline for MRSA in his urine. He returned to the emergency room today with again low blood pressures and high heart rate, similar to his prior presentation. He denies any fevers, chills. He does feel like someone has punched him in the chest but does not feel short of breath nor does the seemingly worsen with breathing. It is been fairly constant over the past 3 weeks or so. He denies any abdominal pain, nausea, vomiting. He does not use a chronic catheter or straight cath reportedly. In emergency room, the patient was mildly tachycardic and mildly hypotensive, but afebrile. ER provider had ordered Levophed but BP stable after 2L with MAP >65 on arrival to the floor. Initial laboratory evaluation revealed a leukocytosis with WBC of 20.4, stable chronic anemia, mild hyponatremia sodium of 131, elevated potassium of 5.6, with a creatinine of 5.37. Glucose was 218. The remainder of the chemistries were unremarkable. ProBNP was mildly elevated at 1430. Procalcitonin was 0.64. Urinalysis was grossly infected with 2+ leukocyte esterase, many rbc's and wbc's. CT KUB protocol showed actually improved bilateral hydronephrosis which is chronic without evidence of instruction. It did note that he had a pericardial effusion previously, and this has increased in size. Chest x-ray showed bibasilar opacities and a trace left-sided pleural effusion. Patient was admitted to Medicine for further evaluation. He was admitted to the ICU given likelihood of need for blood pressure support, at least initially. Patient History Medical History Chronic anemia Chronic kidney disease Hyperlipidemia Hypertension Multiple sclerosis Neurogenic bladder Stroke Type 2 diabetes mellitus Family & Social History Social History: household members caregiver Safety & Behavioral: Feels Safe in Current Yes Environment Been Physically Hurt or No Threatened By a Person Tobacco & Substance use: Smoking Status Never smoker alcohol intake former alcohol intake frequency 0-2 drinks per day Substance Use Type does not use Comment: No relevant past family history. Meds Home Medications and Allergies Home Medications Medication Instructions Recorded Confirmed Type acetaminophen 325 mg capsule 650 mg PO Q4H PRN 12/30/20 12/30/20 History aspirin 81 mg tablet 81 mg PO QAM 12/30/20 12/30/20 History atorvastatin 20 mg tablet 20 mg PO QAM 12/30/20 12/30/20 History bismuth subsalicylate 262 mg/15 mL 524 mg PO Q4HR PRN 12/30/20 12/30/20 History oral suspension (Pepto-Bismol) chlorhexidine gluconate 2 % See Rx Instructions .ROUTE .COMPLEX 12/30/20 12/30/20 History topical liquid docusate sodium 100 mg capsule 200 mg PO QAM 12/30/20 12/30/20 History ferrous sulfate 325 mg (65 mg 325 mg PO QAM 12/30/20 12/30/20 History iron) capsule,extended release hydrocodone 5 mg-acetaminophen 325 1 - 2 tab PO Q6H PRN 12/30/20 12/30/20 History mg tablet insulin glargine 100 unit/mL (3 30 unit SUBCUT DAILY 12/30/20 12/30/20 History mL) subcutaneous pen (Lantus Solostar U-100 Insulin) lidocaine 4 % topical patch 1 patch TOPICAL TID 12/30/20 12/30/20 History (Aspercreme (lidocaine)) lisinopril 5 mg tablet 5 mg PO QAM 12/30/20 12/30/20 History loperamide 2 mg capsule 2 mg PO QID PRN 12/30/20 12/30/20 History pantoprazole 40 mg tablet,delayed 40 mg PO QAM 12/30/20 12/30/20 History release polyethylene glycol 3350 17 gram 17 g PO QAM 12/30/20 12/30/20 History oral powder packet tamsulosin 0.4 mg capsule 0.4 mg PO QAM 12/30/20 12/30/20 History Allergies Allergy/AdvReac Type Severity Reaction Status Date / Time No Known Drug Allergies Allergy Verified 01/12/21 13:36 Review of Systems Review of Systems Narrative: All other systems reviewed with the patient and are negative unless otherwise stated. Exam Vital Signs (past 8 hours): - 01/12/21 11:40 01/12/21 12:03 01/12/21 12:30 Temperature 98.4 F Pulse Rate 103 H 101 H 99 H Respiratory Rate 22 23 19 Blood Pressure 91/52 L 88/55 L Blood Pressure [Right Arm] 99/58 L Pulse Oximetry 98 96 100 01/12/21 12:55 01/12/21 13:00 01/12/21 13:29 Temperature Pulse Rate 96 H 99 H 97 H Respiratory Rate 20 21 20 Blood Pressure 89/52 L 89/51 L 97/56 L Blood Pressure [Right Arm] Pulse Oximetry 97 99 99 01/12/21 13:30 01/12/21 13:45 01/12/21 14:02 Temperature Pulse Rate 96 H 99 H 97 H Respiratory Rate 18 20 Blood Pressure 91/50 L 85/83 L Blood Pressure [Right Arm] Pulse Oximetry 99 99 99 01/12/21 14:03 01/12/21 14:15 01/12/21 14:30 Temperature Pulse Rate 98 H 97 H 99 H Respiratory Rate 18 21 21 Blood Pressure 96/63 86/53 L 84/53 L Blood Pressure [Right Arm] Pulse Oximetry 98 99 99 01/12/21 14:36 01/12/21 14:38 01/12/21 14:55 Temperature Pulse Rate 101 H 101 H 101 H Respiratory Rate 23 16 11 L Blood Pressure 93/53 L 93/53 L 90/51 L Blood Pressure [Right Arm] Pulse Oximetry 100 99 100 01/12/21 15:00 01/12/21 15:05 01/12/21 15:15 Temperature Pulse Rate 100 H 100 H 100 H Respiratory Rate 22 23 22 Blood Pressure 83/53 L 85/52 L Blood Pressure [Right Arm] Pulse Oximetry 100 100 99 01/12/21 15:30 01/12/21 15:45 01/12/21 15:58 Temperature 97.5 F L Pulse Rate 101 H 100 H 103 H Respiratory Rate 22 23 19 Blood Pressure 91/53 L 90/53 L 89/62 L Blood Pressure [Right Arm] Pulse Oximetry 100 100 98 Oxygen Delivery Method Room Air Narrative Exam Narrative: General:? Alert very pleasant well-developed well-nourished male in no acute distress HEENT:? Anicteric, no oral lesions Neck:? Supple without lymphadenopathy Lungs:? Clear to auscultation bilaterally Heart:? Normal S1 and S2, regular rate and rhythm, no murmur Abdomen:? Soft, nontender, no HSM Extremities:? No cyanosis or edema Neurological:? Alert, speech fluent, A&O x3, has flaccid paralysis in both legs, left arm but able to move right lower arm with moderate weakness Skin:? No rash Objective ECG Impression: normal sinus rhythm Labs Result Diagrams: 01/12/21 12:49 01/12/21 12:49 Labs: Laboratory Results - last 24 hr 01/12/21 01/12/21 01/12/21 12:25 12:49 12:49 WBC 20.4 H RBC 2.97 L Hgb 8.3 L Hct 26.1 L MCV 87.9 MCH 28.1 MCHC 31.9 RDW 15.7 H Plt Count 408 H Neut % (Auto) 79.3 H Lymph % (Auto) 7.1 L [place] % (Auto) 11.9 Eos % (Auto) 0.6 L Baso % (Auto) 1.1 Neut # (Auto) 34421 H Lymph # (Auto) 1400 [place] # (Auto) 2400 H Eos # (Auto) 100 Baso # (Auto) 200 H Sodium 131 L Potassium 5.6 H Chloride 107 Carbon Dioxide 15 L BUN 64 H Creatinine 5.37 H Estimated GFR 10.9 L BUN/Creatinine Ratio 11.9 Glucose 218 H D Lactate Calcium 8.4 Total Bilirubin 0.2 AST 13 L ALT 15 Alkaline Phosphatase 123 Total Creatine Kinase < 20 L CK-MB (CK-2) TNP CK-MB (CK-2) Rel Index TNP Troponin I < 0.012 NT-Pro-B Natriuret Pep Total Protein 6.2 L Albumin 3.2 L Globulin 3.0 Albumin/Globulin Ratio 1.1 Procalcitonin 0.64 H Urine Color Yellow Urine Appearance Cloudy Urine pH 5.0 Ur Specific [place] 1.020 Urine Protein 2+ H Urine Glucose (UA) Trace H Urine Ketones Trace H Urine Occult Blood 3+ H Urine Nitrate Negative Urine Bilirubin Negative Urine Urobilinogen 0.2 Ur Leukocyte Esterase 2+ H Urine RBC 30-100/hpf H Urine WBC 30-100/hpf H Amorphous Sediment 2+ Urine Bacteria None seen Ur Culture Indicated? Specimen cultured SARS-CoV-2 (PCR) 01/12/21 01/12/21 01/12/21 12:49 12:49 12:58 WBC RBC Hgb Hct MCV MCH MCHC RDW Plt Count Neut % (Auto) Lymph % (Auto) [place] % (Auto) Eos % (Auto) Baso % (Auto) Neut # (Auto) Lymph # (Auto) [place] # (Auto) Eos # (Auto) Baso # (Auto) Sodium Potassium Chloride Carbon Dioxide BUN Creatinine Estimated GFR BUN/Creatinine Ratio Glucose Lactate 1.1 Calcium Total Bilirubin AST ALT Alkaline Phosphatase Total Creatine Kinase CK-MB (CK-2) CK-MB (CK-2) Rel Index Troponin I NT-Pro-B Natriuret Pep 1430 H Total Protein Albumin Globulin Albumin/Globulin Ratio Procalcitonin Urine Color Urine Appearance Urine pH Ur Specific [place] Urine Protein Urine Glucose (UA) Urine Ketones Urine Occult Blood Urine Nitrate Urine Bilirubin Urine Urobilinogen Ur Leukocyte Esterase Urine RBC Urine WBC Amorphous Sediment Urine Bacteria Ur Culture Indicated? SARS-CoV-2 (PCR) Negative Assessment & Plan Assessment & Plan narrative: 1. Sepsis due to probable complicated UTI -patient presented with hypotension, tachycardia, leukocytosis. UA positive but also with worsening pericardial effusion? May need pressor support based on prior hospital course. -continue zosyn and vancomycin for now pending repeat urine cultures. Previously with MRSA UTI sensitive to doxy. Discharged recently (about 1 week ago) but completed doxycycline course. UA grossly positive on admission, cultures sent. Follow up blood cultures. -patient has chronic bilateral hydronephrosis consistent with neurogenic bladder secondary to multiple sclerosis -does not have chronic Hightower catheter or get intermittent catheterization -treat with vancomycin and cefepime initially for complicated UTI, (zosyn initially in the ER, will change to cefepime given possible MARGE risk from zosyn in combination with vancomycin). -unclear if pericardial effusion contributing, will further assess with TTE. 2. Acute kidney injury on stage 4 chronic kidney disease -admit creatinine 5.37 versus baseline 3.10. Mild hyperkalemia with K 5.6 but no EKG changes. -continued treatment of sepsis with volume support and IV antibiotics -hold lisinopril, consider cessation. -continue patient's tamsulosin 3. Type 2 diabetes insulin requiring -initial glucose 150 -continue insulin glargine 30 units subQ daily per home routine -continue patient's atorvastatin 3. Multiple sclerosis with functional quadriplegia -patient is functional quadriplegic, mobilizes with electric wheelchair, needs accommodations for feeding 4. pericardial effusion -significance unclear, no evidence of cardiac tamponade at least on exam. Given increasing size on CT compared to prior will check TTE. Consider cardiology consultation. -initial troponin negative, will repeat. 5. Mildly enlarged retroperitoneal periaortic lymph node -significance unclear, without evidence of malignancy on abdominal CT 6. Stage II cocyx 6 and unstageable perineal pressure sores present prior to admission -continue positioning in bed q.2 hours and barrier cream Admit status: Inpatient Code status:? Full code but does not wish to be in chronic vegetative state, surrogate decision maker is the patient's son Dispo: Admitted to ICU, levophed initially ordered in the ER but not started and currently MAP >65. I spent 34 minutes providing critical care management this patient. This excludes time spent in performing separately billed procedures. COVID-19 COVID-19 status: Negative Time Spent With Patient Critical Care time: I spent a total of [] minutes of critical care time on this patient's care today; this time is exclusive of procedural time.
[2021-01-12] MEDS: INSULIN LISPRO 100 UNIT/ML 3ML VIAL SUBCUT ×2 (18:16→20:59)
[2021-01-12] MEDS: ATORVASTATIN 20 MG TABLET PO (20:30)
[2021-01-12] MEDS: CEFEPIME 1 GM in SODIUM CHLORIDE 0.9% 100 ML 200 ML IV (20:31)
[2021-01-12] MEDS: INSULIN GLARGINE 100 UNIT/ML 3ML PEN 30 UNIT SUBCUT (21:00)
--- NOTE | 2021-01-12 21:28 | PM.EVENT ---
Event Note Date Patient Seen: 01/12/21 Time Patient Seen: 20:00 Event Note: TELEINTENSIVIST MULTIDISCIPLINARY ROUNDS NOTE Patient seen via intercative real-time audiovisual telecommunication. 60 y.o. male with sepsis and MARGE due to suspected UTI. Initial lactate was normal. Patient with PMHx of multiple sclerosis and neurogenic bladder. Received Zosyn x 1 and currently on cefepime. Has not required vasopressors. Patient also with small pericardial effusion which is slightly larger compared to previous 2-D echo. Plans and recommendations discussed with Dr. Ordonez and MATTHEW Gonzalez. I did decrease enoxaprin VTE chemoprophylaxis to a renal dose. Patient can be downgraded to acute care in AM if clinical status remains unchanged overnight.
[2021-01-12 21:36] LABS: BUN Creatinine Ratio 12.3 (6-22); Blood Urea Nitrogen 66 mg/dL (9-20); Carbon Dioxide 13 mmol/L (22-32); Chloride 109 mmol/L (98-107); Glucose 177 mg/dL (80-110); HEMOLYSIS < 15 (0-50); Sodium 133 mmol/L (137-145)
[2021-01-12 21:39] LABS: Potassium 5.8 mmol/L (3.4-5.1)
[2021-01-12 21:47] LABS: Troponin I < 0.012 ng/mL (0.01-0.034)
[2021-01-12] MEDS: SODIUM POLYSTYRENE SULFON/SORB 15 GM/60 ML CUP PO (22:30)
[2021-01-13] VITALS (29 sets, daily range): BP systolic 69–101; BP diastolic 39–58; PULSE 104–111; RESP 22–32; TEMP 36.1–36.6; O2SAT 92–100
[2021-01-13] MEDS: LACTATED RINGERS 1,000 ML 75 ML IV (02:45)
[2021-01-13 04:14] LABS: Add Manual Diff / Slide Review NO; Basophils Absolute Auto 200 /uL (0-100); Basophils Percent Auto 0.9 % (0-2); Eosinophils Absolute Auto 100 /uL (0-450); Eosinophils Percent Auto 0.9 % (2-4); Hemoglobin 7.5 g/dL (13.5-17.5); Lymphocytes Absolute Auto 1200 /uL (1100-4500); Lymphocytes Percent Auto 7.2 % (25-40); Mean Corpuscular HGB Conc 31.8 % (30-36); Mean Corpuscular Hemoglobin 27.9 PG (26-34); Mean Corpuscular Volume 87.7 fL (80-100); Monocytes Absolute Auto 1900 /uL (0-900); Monocytes Percent Auto 10.8 % (3-14); Neutrophils Absolute Auto 13900 /uL (1500-7000); Neutrophils Percent Auto 80.2 % (50-75); Platelet Count 386 X10^3/uL (150-400); Red Cell Distribution Width 15.3 % (11.6-14.8); White Blood Cell Count 17.3 X10^3/uL (4.5-11.0)
[2021-01-13 04:24] LABS: Alanine Aminotransferase 15 IU/L (<50); Albumin 2.9 g/dL (3.5-5.0); Alkaline Phosphatase 163 U/L (38-126); Aspartate Aminotransferase 12 IU/L (17-59); BUN Creatinine Ratio 12.5 (6-22); Bilirubin Total 0.2 mg/dL (0.2-1.3); Blood Urea Nitrogen 71 mg/dL (9-20); Calcium 8.2 mg/dL (8.4-10.2); Carbon Dioxide 13 mmol/L (22-32); Chloride 111 mmol/L (98-107); Estimated Glomerular Filt Rate 10.3 mL/min (>60); Globulin 2.9 g/dL (1.7-4.1); Glucose 154 mg/dL (80-110); HEMOLYSIS < 15 (0-50); Sodium 133 mmol/L (137-145); Total Protein 5.8 g/dL (6.3-8.2)
[2021-01-13 04:31] LABS: Potassium 5.9 mmol/L (3.4-5.1)
[2021-01-13 04:39] LABS: Hematocrit 23.7 % (41-53)
[2021-01-13] MEDS: INSULIN LISPRO 100 UNIT/ML 3ML VIAL SUBCUT ×2 (07:56→11:50)
[2021-01-13] MEDS: ACETAMINOPHEN 325 MG TABLET 650 MG PO (09:16)
[2021-01-13] MEDS: ASPIRIN EC 81 MG TABLET PO (09:16)
[2021-01-13] MEDS: HYDROCODONE/ACET 5/325 TABLET 1 TAB PO (09:16)
[2021-01-13] MEDS: PANTOPRAZOLE DR 40 MG TABLET PO (09:16)
[2021-01-13] MEDS: TAMSULOSIN 0.4 MG CAPSULE PO (09:16)
[2021-01-13] MEDS: polyethylene glycoL 3350 17 GM POWD.PACK PO (09:17)
[2021-01-13] MEDS: ENOXAPARIN 30 MG/0.3 ML SYRINGE SUBCUT (09:17)
[2021-01-13] MEDS: CEFEPIME 1 GM in SODIUM CHLORIDE 0.9% 100 ML 200 ML IV (09:17)
[2021-01-13] MEDS: FERROUS SULFATE 325 MG TABLET PO (09:17)
--- NOTE | 2021-01-13 13:05 | P.PN_ITS ---
Subjective Subjective Date Patient Seen: 01/13/21 Time Patient Seen: 13:05 Interval history: 60-year-old male with known history of multiple sclerosis, functional quadriplegia, neurogenic bladder, insulin-requiring type 2 diabetes, chronic kidney disease, chronic anemia who resides at [facility] living and presented with Low BP and tachycardia.?No complaints today. Pending echo to evaluate pericardial effusion. slightly worsened renal function, had BM today with kayexalate. repeating labs this afternoon. Exam Vital Signs (past 8 hours): - 01/13/21 05:30 01/13/21 06:00 01/13/21 06:30 Temperature Pulse Rate 108 H 109 H 111 H Respiratory Rate 30 H 29 H 30 H Blood Pressure Pulse Oximetry 97 98 97 01/13/21 07:00 01/13/21 07:30 01/13/21 07:55 Temperature Pulse Rate 109 H 109 H 109 H Respiratory Rate 25 H 28 H 28 H Blood Pressure 101/51 L Pulse Oximetry 99 98 98 01/13/21 08:00 01/13/21 08:30 01/13/21 09:00 Temperature 96.9 F L Pulse Rate 109 H 109 H 110 H Respiratory Rate 27 H 27 H 27 H Blood Pressure 101/51 L Pulse Oximetry 97 98 98 01/13/21 09:30 01/13/21 10:00 01/13/21 11:30 Temperature Pulse Rate 107 H 109 H Respiratory Rate 28 H 31 H Blood Pressure Pulse Oximetry 100 95 92 01/13/21 12:00 Temperature 97.8 F Pulse Rate 106 H Respiratory Rate 27 H Blood Pressure 85/39 L Pulse Oximetry 96 Oxygen Delivery Method Nasal Cannula Oxygen Flow Rate 0 Narrative Exam Narrative: General:? Alert very pleasant well-developed well-nourished male in no acute distress HEENT:? Anicteric, no oral lesions Neck:? Supple without lymphadenopathy Lungs:? Clear to auscultation bilaterally Heart:? Normal S1 and S2, regular rate and rhythm, no murmur Abdomen:? Soft, nontender, no HSM Extremities:? No cyanosis or edema Neurological:? Alert, speech fluent, A&O x3, has flaccid paralysis in both legs, left arm but able to move right lower arm with moderate weakness Skin:? No rash Objective ECG Impression: Sinus tachycardia Labs Result Diagrams: 01/13/21 03:55 01/13/21 03:55 Labs: Laboratory Results - last 24 hr 01/12/21 01/12/21 01/12/21 12:49 12:49 12:49 WBC 20.4 H RBC 2.97 L Hgb 8.3 L Hct 26.1 L MCV 87.9 MCH 28.1 MCHC 31.9 RDW 15.7 H Plt Count 408 H Neut % (Auto) 79.3 H Lymph % (Auto) 7.1 L [place] % (Auto) 11.9 Eos % (Auto) 0.6 L Baso % (Auto) 1.1 Neut # (Auto) 87276 H Lymph # (Auto) 1400 [place] # (Auto) 2400 H Eos # (Auto) 100 Baso # (Auto) 200 H Sodium 131 L Potassium 5.6 H Chloride 107 Carbon Dioxide 15 L BUN 64 H Creatinine 5.37 H Estimated GFR 10.9 L BUN/Creatinine Ratio 11.9 Glucose 218 H D Lactate 1.1 Calcium 8.4 Magnesium Total Bilirubin 0.2 AST 13 L ALT 15 Alkaline Phosphatase 123 Total Creatine Kinase < 20 L CK-MB (CK-2) TNP CK-MB (CK-2) Rel Index TNP Troponin I < 0.012 NT-Pro-B Natriuret Pep Total Protein 6.2 L Albumin 3.2 L Globulin 3.0 Albumin/Globulin Ratio 1.1 Procalcitonin 0.64 H Nasal Screen MRSA (PCR) SARS-CoV-2 (PCR) 01/12/21 01/12/21 01/12/21 12:49 12:58 16:14 WBC RBC Hgb Hct MCV MCH MCHC RDW Plt Count Neut % (Auto) Lymph % (Auto) [place] % (Auto) Eos % (Auto) Baso % (Auto) Neut # (Auto) Lymph # (Auto) [place] # (Auto) Eos # (Auto) Baso # (Auto) Sodium Potassium Chloride Carbon Dioxide BUN Creatinine Estimated GFR BUN/Creatinine Ratio Glucose Lactate Calcium Magnesium Total Bilirubin AST ALT Alkaline Phosphatase Total Creatine Kinase CK-MB (CK-2) CK-MB (CK-2) Rel Index Troponin I NT-Pro-B Natriuret Pep 1430 H Total Protein Albumin Globulin Albumin/Globulin Ratio Procalcitonin Nasal Screen MRSA (PCR) Negative for mrsa SARS-CoV-2 (PCR) Negative 09/02/21 09/02/21 09/03/21 21:10 21:10 03:55 WBC 17.3 H RBC 2.70 L Hgb 7.5 L Hct 23.7 L MCV 87.7 MCH 27.9 MCHC 31.8 RDW 15.3 H Plt Count 386 Neut % (Auto) 80.2 H Lymph % (Auto) 7.2 L [place] % (Auto) 10.8 Eos % (Auto) 0.9 L Baso % (Auto) 0.9 Neut # (Auto) 16725 H Lymph # (Auto) 1200 [place] # (Auto) 1900 H Eos # (Auto) 100 Baso # (Auto) 200 H Sodium 133 L Potassium 5.8 H Cancelled Chloride 109 H Carbon Dioxide 13 L BUN 66 H Creatinine 5.35 H Estimated GFR 11.0 L BUN/Creatinine Ratio 12.3 Glucose 177 H Lactate Calcium 8.0 L Magnesium Total Bilirubin AST ALT Alkaline Phosphatase Total Creatine Kinase CK-MB (CK-2) CK-MB (CK-2) Rel Index Troponin I < 0.012 NT-Pro-B Natriuret Pep Total Protein Albumin Globulin Albumin/Globulin Ratio Procalcitonin Nasal Screen MRSA (PCR) SARS-CoV-2 (PCR) 01/13/21 03:55 WBC RBC Hgb Hct MCV MCH MCHC RDW Plt Count Neut % (Auto) Lymph % (Auto) [place] % (Auto) Eos % (Auto) Baso % (Auto) Neut # (Auto) Lymph # (Auto) [place] # (Auto) Eos # (Auto) Baso # (Auto) Sodium 133 L Potassium 5.9 H Chloride 111 H Carbon Dioxide 13 L BUN 71 H Creatinine 5.66 H Estimated GFR 10.3 L BUN/Creatinine Ratio 12.5 Glucose 154 H Lactate Calcium 8.2 L Magnesium 2.0 Total Bilirubin 0.2 AST 12 L ALT 15 Alkaline Phosphatase 163 H Total Creatine Kinase CK-MB (CK-2) CK-MB (CK-2) Rel Index Troponin I NT-Pro-B Natriuret Pep Total Protein 5.8 L Albumin 2.9 L Globulin 2.9 Albumin/Globulin Ratio 1.0 Procalcitonin Nasal Screen MRSA (PCR) SARS-CoV-2 (PCR) [facility] Medical History Chronic anemia Chronic kidney disease Hyperlipidemia Hypertension Multiple sclerosis Neurogenic bladder Stroke Type 2 diabetes mellitus Social History household members: caregiver Smoking Status: Never smoker alcohol intake: former Assessment & Plan Assessment & Plan narrative: 1. Sepsis due to probable complicated UTI -patient presented with hypotension, tachycardia, leukocytosis. UA positive but also with worsening pericardial effusion? -continue zosyn and vancomycin for now pending repeat urine cultures. Previously with MRSA UTI sensitive to doxy. Discharged recently (about 1 week ago) but completed doxycycline course. UA grossly positive on admission, growing GNB. Follow up blood cultures. -patient has chronic bilateral hydronephrosis consistent with neurogenic bladder secondary to multiple sclerosis -does not have chronic Herrera catheter or get intermittent catheterization -treat with vancomycin and cefepime initially for complicated UTI, (zosyn initially in the ER, will change to cefepime given possible MARGE risk from zosyn in combination with vancomycin). Urine cultures growing gram negative bacilli but will leave on vancomycin given patient's history until cultures finalize. -unclear if pericardial effusion contributing, will further assess with TTE. 2. Acute kidney injury on stage 4 chronic kidney disease -admit creatinine 5.37 versus baseline 3.10. Mild hyperkalemia with K 5.9 but no EKG changes. Given kayexalate. -continued treatment of sepsis with volume support and IV antibiotics -hold lisinopril, consider cessation. -continue patient's tamsulosin -herrera in place for accurate urine monitoring. Does not typically use herrera as outpatient. 3. Type 2 diabetes insulin requiring -initial glucose 150 -continue insulin glargine 30 units subQ daily per home routine -continue patient's atorvastatin 3. Multiple sclerosis with functional quadriplegia -patient is functional quadriplegic, mobilizes with electric wheelchair, needs accommodations for feeding 4. pericardial effusion -significance unclear, no evidence of cardiac tamponade at least on exam. Given increasing size on CT compared to prior will check TTE. Consider cardiology consultation. -initial troponin negative, will repeat. 5. Mildly enlarged retroperitoneal periaortic lymph node -significance unclear, without evidence of malignancy on abdominal CT 6. Stage II cocyx 6 and unstageable perineal pressure sores present prior to admission -continue positioning in bed q.2 hours and barrier cream Admit status: Inpatient Code status:? Full code but does not wish to be in chronic vegetative state, surrogate decision maker is the patient's son Dispo: Admitted to ICU,stable for general floor. COVID-19 COVID-19 status:?Negative Time Spent With Patient Critical Care time: I spent a total of [] minutes of critical care time on this patient's care today; this time is exclusive of procedural time.
--- NOTE | 2021-01-13 13:06 | DI.ECHO.S_ITS ---
[facility] +---------+ : : [address] : [address] : : : : [id number] : : : : Phone: [phone]+ Echocardiogram Report + + :Name: KENDRA VALENTIN Study Date: 01/13/2021 Height: 67 in : :[facility] ReadingLocation: Weight: 227 lb: : Gender: Male BSA: 2.1 m2 : :: 1960 Age: 60 yrs BP: 89/62 mmHg: :Reason For Study: Pericardial Effusion : :Ordering Physician: BILLIE, : :LOPEZ GRULLON Performed By: Hema Tafoya : :Referring: LOPEZ WISE : + + Interpretation Summary Normal left ventricle size with ejection fraction 60-65%. No valvualr abnormality. There is a very large pericardial effusion noted. There are echocardiographic indications for cardiac tamponade. Left Ventricle: The left ventricle is normal in size and wall thickness. The ejection fraction is estimated to be 60-65%. There are no focal wall motion abnormalities. Right Ventricle: The right ventricle is normal in size and function. Atria: The left atrium grossly appears normal in size. The right atrium grossly appears normal in size. There is no Doppler evidence for an interatrial shunt. Mitral Valve: The mitral valve is normal in structure and function. There is no mitral regurgitation noted. Aortic Valve: The aortic valve is normal in structure and function. No aortic regurgitation is present. Tricuspid Valve: The tricuspid valve is normal in structure and function. No tricuspid regurgitation. Pulmonary artery pressures cannot be estimated because of the lack of a measurable TR jet velocity but the IVC suggests a CVP of around 15 mmHg. Great Vessels: The aortic root is normal size. The IVC is dilated (diameter is greater than 2.1 cm) and it collapses less than 50% with a sniff. This suggests a high right atrial pressure of 15 mm Hg. Pericardium/ Pleura There is a very large pericardial effusion noted. There are echocardiographic indications for cardiac tamponade. MMode/2D Measurements & Calculations LVIDd: 4.7 cm LVOT diam: 2.3 cm IVSd: 0.85 cm Ao root diam: 3.4 cm LVPWd: 0.95 cm LV pastor. diameter/BSA (cm/m^2): 2.2 IVC diam: 2.4 cm TAPSE: 1.8 cm Doppler Measurements & Calculations Ao V2 max: 100.6 cm/sec LVOT Max Vito: 94.4 cm/sec Ao V2 mean: 71.3 cm/sec LV V1 max P.6 mmHg Ao max P.1 mmHg LV V1 VTI: 11.4 cm Ao mean P.3 mmHg LUAN(I,D): 3.5 cm2 Ao V2 VTI: 13.4 cm LUAN(V,D): 3.9 cm2 sev ratio: 0.85 LUAN indexed to BSA (cm^2/m^2): 1.7 Med Peak E' Vito: 6.5 cm/sec SV(LVOT): 47.4 ml Lat Peak E' Vito: 5.6 cm/sec Electronically signed by: Chiqui Zaman on Reading Physician:01/13/2021 02:07 PM
[2021-01-13 13:59] LABS: BUN Creatinine Ratio 12.6 (6-22); Blood Urea Nitrogen 73 mg/dL (9-20); Calcium 8.3 mg/dL (8.4-10.2); Carbon Dioxide 10 mmol/L (22-32); Chloride 111 mmol/L (98-107); Glucose 158 mg/dL (80-110); HEMOLYSIS < 15 (0-50); Sodium 133 mmol/L (137-145)
[2021-01-13 14:00] LABS: Potassium 5.6 mmol/L (3.4-5.1)
--- NOTE | 2021-01-13 14:11 | PM.DS.1 ---
History of Present Illness History of Present Illness Date Patient Seen: 01/13/21 Time Patient Seen: 14:23 Chief complaint: Low blood pressure, anibal heart rate Narrative: Patient is a 60-year-old male with known history of multiple sclerosis, functional quadriplegia, neurogenic bladder, insulin-requiring type 2 diabetes, chronic kidney disease, chronic anemia who resides at [facility]. He was recently here about a week ago with septic shock, improved with antibiotics, discharged on oral doxycycline for MRSA in his urine. He returned to the emergency room today with again low blood pressures and high heart rate, similar to his prior presentation. He denies any fevers, chills. He does feel like someone has punched him in the chest but does not feel short of breath nor does the seemingly worsen with breathing. It is been fairly constant over the past 3 weeks or so. He denies any abdominal pain, nausea, vomiting. He does not use a chronic catheter or straight cath reportedly. In emergency room, the patient was mildly tachycardic and mildly hypotensive, but afebrile. ER provider had ordered Levophed but BP stable after 2L with MAP >65 on arrival to the floor. Initial laboratory evaluation revealed a leukocytosis with WBC of 20.4, stable chronic anemia, mild hyponatremia sodium of 131, elevated potassium of 5.6, with a creatinine of 5.37. Glucose was 218. The remainder of the chemistries were unremarkable. ProBNP was mildly elevated at 1430. Procalcitonin was 0.64. Urinalysis was grossly infected with 2+ leukocyte esterase, many rbc's and wbc's. CT KUB protocol showed actually improved bilateral hydronephrosis which is chronic without evidence of instruction. It did note that he had a pericardial effusion previously, and this has increased in size. Chest x-ray showed bibasilar opacities and a trace left-sided pleural effusion. Patient was admitted to Medicine for further evaluation. He was admitted to the ICU given likelihood of need for blood pressure support, at least initially. Discharge Providers Provider Date of admission: 01/12/21 15:30 Discharge Date: 01/13/21 Primary care physician: Keeley Michel MD Discharge provider: Otto Ordonez DO Summary Hospital Course Discharge Diagnosis: Please see hospital course by problem list noted below Hospital Course: 1. pericardial effusion with tamponade -patient previously had pericardial effusion about 1.5 weeks ago, increased in size on KUB CT done for possible obstruction. Ordered TTE which showed large effusion with evidence of cardiac tamponade. This may explain patient's tachycardia and borderline low BPs rather than overt sepsis. - transfer to [facility], accepting physician Dr. Narayanan for pericardiocentesis. - EKG with low volatge, no st changes, normal sinus rhythm. No electrical alternans present. 2. suspected Sepsis due to probable complicated UTI -patient presented with hypotension, tachycardia, leukocytosis. UA positive but also with worsening pericardial effusion as discussed above. -continued zosyn and vancomycin for now pending repeat urine cultures. Previously with MRSA UTI sensitive to doxy. Discharged recently (about 1 week ago) but completed doxycycline course. UA grossly positive on admission, growing GNB. blood cultures without growth thus far. -patient has chronic bilateral hydronephrosis consistent with neurogenic bladder secondary to multiple sclerosis -does not have chronic Herrera catheter or get intermittent catheterization -treat with vancomycin and cefepime initially for complicated UTI, (zosyn initially in the ER, changed to cefepime given possible MARGE risk from zosyn in combination with vancomycin). Urine cultures growing gram negative bacilli but will left on vancomycin given patient's history until cultures finalize. -unclear if sepsis or possibly cardiogenic shock based on TTE as noted above. -on HD#1 WBC improved from 20 to 17. 3. Acute kidney injury on stage 4 chronic kidney disease -admit creatinine 5.37 versus baseline 3.10. Mild hyperkalemia with K 5.9 but no EKG changes. Given kayexalate. Initiall creatinine improved but alessandra again to 5.78. -continued treatment of sepsis with volume support and IV antibiotics -hold lisinopril, consider cessation. -continued patient's tamsulosin -herrera in place for accurate urine monitoring. Does not typically use herrera as outpatient. -possibly worsened in setting of cardiac tamponade. 4. Acute anemia - Hg to 7.5 today. No obvious signs or symptoms of bleeding. Based on appearance of pericardial fluid consider that as possible source. 5. Type 2 diabetes insulin requiring -initial glucose 150 -continue insulin glargine 30 units subQ daily per home routine -continue patient's atorvastatin 6. Multiple sclerosis with functional quadriplegia -patient is functional quadriplegic, mobilizes with electric wheelchair, needs accommodations for feeding 7. Mildly enlarged retroperitoneal periaortic lymph node -significance unclear, without evidence of malignancy on abdominal CT -depending on pericardial fluid these may be related. 8. Stage II cocyx 6 and unstageable perineal pressure sores present prior to admission -continue positioning in bed q.2 hours and barrier cream Admit status: Inpatient Code status:? Full code but does not wish to be in chronic vegetative state, surrogate decision maker is the patient's son Dispo: transfer to [facility] for emergent pericardiocentesis. Time Spent with Patient Time spent: Greater than 30 minutes Exam Vital Signs (past 8 hours): - 01/13/21 06:30 01/13/21 07:00 01/13/21 07:30 Temperature Pulse Rate 111 H 109 H 109 H Respiratory Rate 30 H 25 H 28 H Blood Pressure Pulse Oximetry 97 99 98 01/13/21 07:55 01/13/21 08:00 01/13/21 08:30 Temperature 96.9 F L Pulse Rate 109 H 109 H 109 H Respiratory Rate 28 H 27 H 27 H Blood Pressure 101/51 L 101/51 L Pulse Oximetry 98 97 98 01/13/21 09:00 01/13/21 09:30 01/13/21 10:00 Temperature Pulse Rate 110 H 107 H 109 H Respiratory Rate 27 H 28 H 31 H Blood Pressure Pulse Oximetry 98 100 95 01/13/21 11:30 01/13/21 12:00 Temperature 97.8 F Pulse Rate 106 H Respiratory Rate 27 H Blood Pressure 85/39 L Pulse Oximetry 92 96 Oxygen Delivery Method Nasal Cannula Oxygen Flow Rate 0 Narrative Exam Narrative: General:? Alert very pleasant well-developed well-nourished male in no acute distress HEENT:? Anicteric, no oral lesions Neck:? Supple without lymphadenopathy Lungs:? Clear to auscultation bilaterally Heart:? Normal S1 and S2, regular rate and rhythm, no murmur Abdomen:? Soft, nontender, no HSM Extremities:? No cyanosis or edema Neurological:? Alert, speech fluent, A&O x3, has flaccid paralysis in both legs, left arm but able to move right lower arm with moderate weakness Skin:? No rash Objective Labs Result Diagrams: 01/13/21 03:55 01/13/21 13:40 Labs: Laboratory Results - last 24 hr 01/12/21 01/12/21 01/12/21 12:58 16:14 21:10 WBC RBC Hgb Hct MCV MCH MCHC RDW Plt Count Neut % (Auto) Lymph % (Auto) [place] % (Auto) Eos % (Auto) Baso % (Auto) Neut # (Auto) Lymph # (Auto) [place] # (Auto) Eos # (Auto) Baso # (Auto) Sodium 133 L Potassium 5.8 H Chloride 109 H Carbon Dioxide 13 L BUN 66 H Creatinine 5.35 H Estimated GFR 11.0 L BUN/Creatinine Ratio 12.3 Glucose 177 H Calcium 8.0 L Magnesium Total Bilirubin AST ALT Alkaline Phosphatase Troponin I < 0.012 Total Protein Albumin Globulin Albumin/Globulin Ratio Nasal Screen MRSA (PCR) Negative for mrsa SARS-CoV-2 (PCR) Negative 01/12/21 01/13/21 01/13/21 21:10 03:55 03:55 WBC 17.3 H RBC 2.70 L Hgb 7.5 L Hct 23.7 L MCV 87.7 MCH 27.9 MCHC 31.8 RDW 15.3 H Plt Count 386 Neut % (Auto) 80.2 H Lymph % (Auto) 7.2 L [place] % (Auto) 10.8 Eos % (Auto) 0.9 L Baso % (Auto) 0.9 Neut # (Auto) 21369 H Lymph # (Auto) 1200 [place] # (Auto) 1900 H Eos # (Auto) 100 Baso # (Auto) 200 H Sodium 133 L Potassium Cancelled 5.9 H Chloride 111 H Carbon Dioxide 13 L BUN 71 H Creatinine 5.66 H Estimated GFR 10.3 L BUN/Creatinine Ratio 12.5 Glucose 154 H Calcium 8.2 L Magnesium 2.0 Total Bilirubin 0.2 AST 12 L ALT 15 Alkaline Phosphatase 163 H Troponin I Total Protein 5.8 L Albumin 2.9 L Globulin 2.9 Albumin/Globulin Ratio 1.0 Nasal Screen MRSA (PCR) SARS-CoV-2 (PCR) 01/13/21 13:40 WBC RBC Hgb Hct MCV MCH MCHC RDW Plt Count Neut % (Auto) Lymph % (Auto) [place] % (Auto) Eos % (Auto) Baso % (Auto) Neut # (Auto) Lymph # (Auto) [place] # (Auto) Eos # (Auto) Baso # (Auto) Sodium 133 L Potassium 5.6 H Chloride 111 H Carbon Dioxide 10 L BUN 73 H Creatinine 5.78 H Estimated GFR 10.0 L BUN/Creatinine Ratio 12.6 Glucose 158 H Calcium 8.3 L Magnesium Total Bilirubin AST ALT Alkaline Phosphatase Troponin I Total Protein Albumin Globulin Albumin/Globulin Ratio Nasal Screen MRSA (PCR) SARS-CoV-2 (PCR) PFSH Medical History Chronic anemia Chronic kidney disease Hyperlipidemia Hypertension Multiple sclerosis Neurogenic bladder Stroke Type 2 diabetes mellitus Social History household members: caregiver Smoking Status: Never smoker alcohol intake: former Discharge Plan Discharge Plan Patient Disposition: [facility] Provider Discharge Comment: please see discharge summary. Discharge Health Status Multidrug resistant organism: MRSA Precautions: [place] Diet/Activity/Treatments Diet: Diet as Tolerated Diet comment: renal Activity: as tolerated Discharge Data Primary Care Provider: Keeley Michel
[2021-01-13 14:12] LABS: Vancomycin Random 19.8 ug/mL (10-40)
--- NOTE | 2021-01-14 09:05 | CM.IDA ---
Initial DCP Assessment Note- Late Entry Introduced self and role. Pt confirms he resides at [facility] He came over by ambulance. His specialized [id number] wheelchair remains at the facility. He says he is able to manage his own positioning in the w/c so as to be more comfortable during the day. He has limited use of R arm,otherwise limbs flaccid. Carries dx of MS. Neurogenic Bladder. IDDM resident at [facility] x 7 months. Patient very tearful this visit. Patient expected to return to [facility] when able but agreeable to DC to [facility] as needed. Pt idenfies his son Albino: ([phone] is the # listed on his face sheet) as his wire drawer. He is not sure if he has POA but says he has all of his AD paperwork in care of his son. Patient transferred not too long after this discussion; transfer to [facility], accepting physician Dr. Narayanan for pericardiocentesis Placed call to [facility] this morning to give late referral. She explained referral would now need to come from [facility] in order to have access to their records, but would write his name down for reference in case he does need SNF JIA Discharge Planning/Care Management Discharge Assessment Start: 01/13/21 16:45 Freq: Status: Discharge Protocol: Document 01/13/21 16:46 JIA (Rec: 01/13/21 16:48 JIA [id number]) Discharge Planning Assessment Assigned Academic Support Coordinator BRYON Phillips DPOA/Assigned Designee Name shelton Nguyen Contact Information [phone] Advance Directives? Yes Advance Directives on File Yes: In Pt's chart History Provided By Patient,Medical Record Prior Living Arrangements Assisted Living Comment [facility] Household Members caregiver Type of transporation used prior to Relies on Others admit Facility Name Admitted From: [facility] Willing to Return to Facility? Yes Independent with ADL's No Is patient alert and oriented? Yes Comment MS, total care Comment tilt in space w/c Barriers to Discharge Yes Comment Likely SNF before DC to [facility] Discharge Plan Retirement Facility Referrals Initiated Retirement Medicare Choice List Provided Yes SNF/HH Preference [facility]
== END 2021-01-13 15:00 | disposition short-term general hospital (02) | DRG 314 ==
LOC: ED 13:55 → AC 15:50 → ICU 18:13 → AC 01-13 14:56
PROVIDERS: Admitting Provider Internal Medicine; Emergency Provider Physician Assistant; PCP Internal Medicine; Referring Provider Physician Assistant; Visit Provider Internal Medicine
DX: I31.3 Pericardial effusion (noninflammatory) (principal); A41.9 Sepsis, unspecified organism; R53.2 Functional quadriplegia; R65.20 Severe sepsis without septic shock; N17.9 Acute kidney failure, unspecified; N18.4 Chronic kidney disease, stage 4 (severe); N13.30 Unspecified hydronephrosis; N39.0 Urinary tract infection, site not specified; N17.8 Other acute kidney failure; I31.4 Cardiac tamponade; I95.9 Hypotension, unspecified; N31.9 Neuromuscular dysfunction of bladder, unspecified; G35 Multiple sclerosis; R59.0 Localized enlarged lymph nodes; D64.9 Anemia, unspecified; D64.89 Other specified anemias; E11.9 Type 2 diabetes mellitus without complications; L89.152 Pressure ulcer of sacral region, stage 2; L89.890 Pressure ulcer of other site, unstageable; Z79.4 Long term (current) use of insulin; Z20.822 Contact with and (suspected) exposure to COVID-19; Z12.5 Encounter for screening for malignant neoplasm of prostate; N18.9 Chronic kidney disease, unspecified; I69.922 Dysarthria following unspecified cerebrovascular disease
CPT/HCPCS: 36415; 71045; 74176; 80048; 80053; 80076; 80202; 81001; 82043; 82306; 82310; 82550; 82570; 82728; 82962; 83540; 83550; 83605; 83735; 83880; 83970; 84100; 84145; 84153; 84154; 84484; 84550; 85025; 87040; 87077; 87086; 87186; 87635; 87797; 93005; 93306; 94762; 96365; 96366; 96367; 99284; C9803; J0692; J1650; J1815; J2543

== ENCOUNTER → 2021-01-31 07:36 | Outpatient (ROUT) | payer OTHER, MEDICAID, SELFPAY ==
[2021-01-12 16:50] VITALS: BMI 35.5
[2021-01-31 08:08] LABS: Add Manual Diff / Slide Review NO; Basophils Absolute Auto 100 /uL (0-100); Eosinophils Absolute Auto 500 /uL (0-450); Eosinophils Percent Auto 5.5 % (2-4); Hematocrit 27.6 % (41-53); Hemoglobin 8.9 g/dL (13.5-17.5); Lymphocytes Absolute Auto 900 /uL (1100-4500); Lymphocytes Percent Auto 9.8 % (25-40); Mean Corpuscular Hemoglobin 27.9 PG (26-34); Mean Corpuscular Volume 87.1 fL (80-100); Monocytes Absolute Auto 800 /uL (0-900); Monocytes Percent Auto 9.7 % (3-14); Neutrophils Absolute Auto 6400 /uL (1500-7000); Platelet Count 368 X10^3/uL (150-400); Red Blood Cell Count 3.17 X10^6/uL (4.5-5.9); Red Cell Distribution Width 16.5 % (11.6-14.8); White Blood Cell Count 8.7 X10^3/uL (4.5-11.0)
[2021-01-31 08:34] LABS: Alanine Aminotransferase 8 IU/L (<50); Albumin 3.2 g/dL (3.5-5.0); Albumin Globulin Ratio 1.1 (1.0-2.8); Alkaline Phosphatase 83 U/L (38-126); Aspartate Aminotransferase 10 IU/L (17-59); Bilirubin Total 0.2 mg/dL (0.2-1.3); Blood Urea Nitrogen 53 mg/dL (9-20); Calcium 8.9 mg/dL (8.4-10.2); Carbon Dioxide 19 mmol/L (22-32); Chloride 114 mmol/L (98-107); Estimated Glomerular Filt Rate 20.5 mL/min (>60); Glucose 119 mg/dL (80-110); HEMOLYSIS < 15 (0-50); Sodium 138 mmol/L (137-145); Total Protein 6.2 g/dL (6.3-8.2)
[2021-01-31 08:46] LABS: Potassium 6.3 mmol/L (3.4-5.1)
== END ==
PROVIDERS: PCP Internal Medicine; Visit Provider Nurse Practitioner Family
DX: D72.829 Elevated white blood cell count, unspecified (principal); N17.9 Acute kidney failure, unspecified
CPT/HCPCS: 36415; 80053; 85025

== ENCOUNTER → 2021-01-31 17:45 | Outpatient (CLI) | payer OTHER, MEDICAID, SELFPAY ==
[2021-01-12 16:50] VITALS: BMI 35.5
[2021-01-31 18:21] LABS: HEMOLYSIS 36 (0-50)
== END ==
PROVIDERS: PCP Internal Medicine; Referring Provider Nurse Practitioner Family; Visit Provider Nurse Practitioner Family
DX: E87.5 Hyperkalemia (principal); D72.829 Elevated white blood cell count, unspecified; N17.9 Acute kidney failure, unspecified
CPT/HCPCS: 36415; 80053; 84132; 85025

== ENCOUNTER → 2021-02-02 16:44 | Outpatient (ROUT) | payer OTHER, MEDICAID, SELFPAY ==
[2021-01-12 16:50] VITALS: BMI 35.5
[2021-02-02 17:12] LABS: HEMOLYSIS < 15 (0-50); Potassium 5.2 mmol/L (3.4-5.1)
== END ==
PROVIDERS: PCP Internal Medicine; Visit Provider Nurse Practitioner Family
DX: E87.5 Hyperkalemia (principal)
CPT/HCPCS: 84132

== ENCOUNTER → 2021-02-07 09:42 | Outpatient (ROUT) | payer OTHER, MEDICAID, SELFPAY ==
[2021-01-12 16:50] VITALS: BMI 35.5
[2021-02-07 10:08] LABS: Appearance Urine UA CLOUDY; Bilirubin Urine UA NEGATIVE (NEGATIVE); Color Urine UA YELLOW; Glucose Urine UA NEGATIVE (Negative); Ketones Urine UA NEGATIVE (NEGATIVE); Leukocyte Esterase Urine UA 2+ (NEGATIVE); Nitrite Urine UA NEGATIVE (Negative); Occult Blood Urine UA 3+ (Negative); Protein Urine UA 2+ (Negative); Specific Gravity Urine UA <=1.005 (1.000-1.035); Urobilinogen Urine UA 0.2 E.U./dL (0.2); pH Urine UA >= 9.0 (4.5-8.0)
[2021-02-07 10:11] LABS: Amorphous Sediment Urine 2+; Culture Indicated Urine Specimen Cultured; RBC Urine 1-5/HPF (0-5/HPF); Triple Phosphate Crystal Urine Many; WBC Urine 5-10/HPF (0-5/HPF)
[2021-02-07 10:21] LABS: Add Manual Diff / Slide Review NO; Basophils Absolute Auto 100 /uL (0-100); Basophils Percent Auto 0.7 % (0-2); Eosinophils Absolute Auto 400 /uL (0-450); Eosinophils Percent Auto 3.5 % (2-4); Hematocrit 29.7 % (41-53); Hemoglobin 9.6 g/dL (13.5-17.5); Lymphocytes Absolute Auto 1000 /uL (1100-4500); Lymphocytes Percent Auto 9.7 % (25-40); Mean Corpuscular HGB Conc 32.4 % (30-36); Mean Corpuscular Hemoglobin 27.8 PG (26-34); Mean Corpuscular Volume 85.8 fL (80-100); Monocytes Absolute Auto 900 /uL (0-900); Monocytes Percent Auto 8.2 % (3-14); Neutrophils Absolute Auto 8400 /uL (1500-7000); Neutrophils Percent Auto 77.9 % (50-75); Platelet Count 392 X10^3/uL (150-400); Red Blood Cell Count 3.47 X10^6/uL (4.5-5.9); Red Cell Distribution Width 16.3 % (11.6-14.8); White Blood Cell Count 10.7 X10^3/uL (4.5-11.0)
[2021-02-07 10:32] LABS: HEMOLYSIS < 15 (0-50); Iron 27 ug/dL (49-181)
[2021-02-07 10:35] LABS: Alanine Aminotransferase 7 IU/L (<50); Albumin 3.3 g/dL (3.5-5.0); Albumin Globulin Ratio 1.1 (1.0-2.8); Alkaline Phosphatase 68 U/L (38-126); Aspartate Aminotransferase 20 IU/L (17-59); BUN Creatinine Ratio 15.9 (6-22); Bilirubin Total 0.4 mg/dL (0.2-1.3); Bilirubin Unconjugated 0.1 mg/dL (0.0-1.1); Blood Urea Nitrogen 39 mg/dL (9-20); Calcium 8.5 mg/dL (8.4-10.2); Carbon Dioxide 23 mmol/L (22-32); Chloride 107 mmol/L (98-107); Estimated Glomerular Filt Rate 26.9 mL/min (>60); Glucose 100 mg/dL (80-110); HEMOLYSIS 66 (0-50); Magnesium 1.7 mg/dL (1.6-2.3); Phosphorous 4.7 mg/dL (2.3-3.7); Potassium 4.4 mmol/L (3.4-5.1); Sodium 138 mmol/L (137-145); Total Protein 6.3 g/dL (6.3-8.2)
[2021-02-07 10:44] LABS: Percent Iron Saturation 14 % (20-50); Total Iron Binding Capacity 195 ug/dL (261-462); Transferrin 142 mg/dL (206-381)
[2021-02-07 10:49] LABS: Vitamin D 25 Hydroxy (D3) 43.9 ng/mL (30.0-100.0)
[2021-02-07 11:06] LABS: Ferritin 123 ng/mL (18-464)
[2021-02-07 12:17] LABS: Bacteria Urine None Seen
[2021-02-08 14:35] LABS: Calcium 8.7 mg/dL (8.6-10.2); Parathyroid Hormone, Intact 42 pg/mL (15-65)
== END ==
PROVIDERS: PCP Internal Medicine; Visit Provider Internal Medicine
DX: E87.5 Hyperkalemia (principal); N18.9 Chronic kidney disease, unspecified
CPT/HCPCS: 80048; 80076; 81001; 82306; 82310; 82728; 83540; 83550; 83735; 83970; 84100; 85025; 87077; 87086; 87186

== ENCOUNTER → 2021-02-21 10:39 | Outpatient (ROUT) | payer OTHER, MEDICAID, SELFPAY ==
[2021-01-12 16:50] VITALS: BMI 35.5
[2021-02-21 10:59] LABS: Add Manual Diff / Slide Review NO; Basophils Absolute Auto 100 /uL (0-100); Eosinophils Absolute Auto 200 /uL (0-450); Eosinophils Percent Auto 1.9 % (2-4); Hematocrit 33.4 % (41-53); Hemoglobin 10.7 g/dL (13.5-17.5); Lymphocytes Absolute Auto 1400 /uL (1100-4500); Lymphocytes Percent Auto 12.4 % (25-40); Mean Corpuscular Hemoglobin 27.3 PG (26-34); Mean Corpuscular Volume 85.3 fL (80-100); Monocytes Absolute Auto 800 /uL (0-900); Monocytes Percent Auto 7.2 % (3-14); Neutrophils Absolute Auto 8700 /uL (1500-7000); Neutrophils Percent Auto 77.5 % (50-75); Platelet Count 453 X10^3/uL (150-400); Red Blood Cell Count 3.92 X10^6/uL (4.5-5.9); Red Cell Distribution Width 16.3 % (11.6-14.8); White Blood Cell Count 11.2 X10^3/uL (4.5-11.0)
== END ==
PROVIDERS: PCP Internal Medicine; Visit Provider Physician Assistant
DX: E87.5 Hyperkalemia; E83.41 Hypermagnesemia; N18.9 Chronic kidney disease, unspecified
CPT/HCPCS: 85025

== ENCOUNTER → 2021-02-21 16:37 | Outpatient (CLI) | payer OTHER, MEDICAID, SELFPAY ==
[2021-01-12 16:50] VITALS: BMI 35.5
[2021-02-21 18:22] LABS: HEMOLYSIS < 15 (0-50); Magnesium 2.1 mg/dL (1.6-2.3); Potassium 3.2 mmol/L (3.4-5.1)
== END ==
PROVIDERS: PCP Internal Medicine; Referring Provider Internal Medicine Nephrology; Visit Provider Internal Medicine Nephrology
DX: E87.5 Hyperkalemia (principal); E83.41 Hypermagnesemia; N18.9 Chronic kidney disease, unspecified
CPT/HCPCS: 36415; 83735; 84132; 85025

== ENCOUNTER → 2021-02-23 13:30 | Outpatient (CLI) | payer OTHER, MEDICAID, SELFPAY ==
[2021-01-12 16:50] VITALS: BMI 35.5
--- NOTE | 2021-02-23 13:31 | DI.US.S_ITS ---
PROCEDURE: US THYROID INDICATIONS: THYROID NODULE TECHNIQUE: Real-time scanning was performed of the thyroid gland, with image documentation. COMPARISON: None. FINDINGS: Right: Thyroid lobe measures 5.2 x 2.1 x 2.8 cm, and is homogeneous in echotexture. Left: Thyroid lobe measures 6.3 x 2.6 x 3.2 cm, and is homogenous in echotexture. Isthmus: 5.1 mm thick. Nodule number: 1 Location: Right mid/medial Size: 2 x 1.5 x 0.8 cm. Composition: Solid Echogenicity: Hypoechoic Shape: Wider than tall Margins: Smooth Echogenic foci: None Total points: 4 ACR TI-RADS category: Moderately suspicious Nodule number: 2 Location: Right superior Size: 1.7 x 0.9 x 0.9 cm. Composition: Solid Echogenicity: Hypoechoic Shape: Wider than tall Margins: Smooth Echogenic foci: None. Total points: 4 ACR TI-RADS category: Moderately suspicious Nodule number: 3 Location: Left superior Size: 2.5 x 1.6 x 1.7 cm. Composition: Solid Echogenicity: Hyperechoic Shape: Wider than tall Margins: Smooth Echogenic foci: None Total points: 4 ACR TI-RADS category: Moderately suspicious Nodule number: 4. Location: Left mid Size: 1.8 x 1.7 x 1.3 cm. Composition: Solid Echogenicity: Hyperechoic Shape: Wider than tall Margins: Smooth Echogenic foci: None Total points: 4 ACR TI-RADS category: Moderately suspicious IMPRESSION: Multiple thyroid nodules as detailed above. Consider FNA of the 2 largest thyroid nodules. TI-RADS 4 (moderately suspicious): 4-6 points. * FNA if 1.5 cm or larger, follow up if 1 cm or larger (at 1, 2, 3, and 5 years). * FNA: no more than 2 nodules with the highest TI-RADS scores. Dictated by: Antwan Wallace M.D. on 02/23/2021 at 16:06 Approved by: Antwan Wallace M.D. on 02/23/2021 at 16:17
== END ==
PROVIDERS: PCP Internal Medicine; Referring Provider Internal Medicine; Visit Provider Internal Medicine
DX: E04.2 Nontoxic multinodular goiter (principal)
CPT/HCPCS: 76536

== ENCOUNTER → 2021-02-28 08:11 | Outpatient (ROUT) | payer OTHER, MEDICAID, SELFPAY ==
[2021-01-12 16:50] VITALS: BMI 35.5
[2021-02-28 08:51] LABS: Add Manual Diff / Slide Review NO; Basophils Absolute Auto 100 /uL (0-100); Basophils Percent Auto 1.3 % (0-2); Eosinophils Absolute Auto 100 /uL (0-450); Eosinophils Percent Auto 1.4 % (2-4); Hematocrit 34.2 % (41-53); Hemoglobin 10.8 g/dL (13.5-17.5); Lymphocytes Absolute Auto 1300 /uL (1100-4500); Lymphocytes Percent Auto 16.9 % (25-40); Mean Corpuscular HGB Conc 31.6 % (30-36); Mean Corpuscular Hemoglobin 27.2 PG (26-34); Mean Corpuscular Volume 86.1 fL (80-100); Monocytes Absolute Auto 700 /uL (0-900); Monocytes Percent Auto 9.2 % (3-14); Neutrophils Absolute Auto 5400 /uL (1500-7000); Neutrophils Percent Auto 71.2 % (50-75); Platelet Count 357 X10^3/uL (150-400); Red Blood Cell Count 3.97 X10^6/uL (4.5-5.9); Red Cell Distribution Width 17.5 % (11.6-14.8); White Blood Cell Count 7.5 X10^3/uL (4.5-11.0)
[2021-02-28 09:02] LABS: BUN Creatinine Ratio 15.3 (6-22); Blood Urea Nitrogen 39 mg/dL (9-20); Calcium 8.6 mg/dL (8.4-10.2); Carbon Dioxide 27 mmol/L (22-32); Chloride 106 mmol/L (98-107); Estimated Glomerular Filt Rate 25.8 mL/min (>60); Glucose 67 mg/dL (80-110); HEMOLYSIS < 15 (0-50); Potassium 3.8 mmol/L (3.4-5.1); Sodium 142 mmol/L (137-145)
== END ==
PROVIDERS: PCP Internal Medicine; Visit Provider Nurse Practitioner Family
DX: E87.6 Hypokalemia (principal)
CPT/HCPCS: 36415; 80048; 85025

== ENCOUNTER → 2021-03-14 15:30 | Outpatient (CLI) | payer MEDICARE, MEDICAID, SELFPAY ==
[2021-01-12 16:50] VITALS: BMI 35.5
[2021-03-14 17:11] LABS: Hematocrit 37.9 % (41-53); Hemoglobin 12.2 g/dL (13.5-17.5)
== END ==
PROVIDERS: PCP Internal Medicine; Referring Provider Internal Medicine; Visit Provider Internal Medicine
DX: N18.9 Chronic kidney disease, unspecified (principal)
CPT/HCPCS: 36415; 85014; 85018

== ENCOUNTER 2021-03-15 08:48 | Emergency (ER) | payer MEDICARE, MEDICAID, SELFPAY ==
[2021-01-12 16:50] VITALS: BMI 35.5
[2021-03-15] VITALS (13 sets, daily range): BP systolic 110–122; BP diastolic 58–82; PULSE 105–124; RESP 16–21; TEMP 37.9; O2SAT 90–100; BMI 32.1
--- NOTE | 2021-03-15 08:51 | DI.RAD.S_ITS ---
PROCEDURE: XR CHEST 1V INDICATIONS: eval for PNA TECHNIQUE: One view of the chest was acquired. COMPARISON: [facility], CT, CT CHEST WITHOUT CONTRAST, 01/16/2021, 14:02. [facility], CR, XR CHEST 1 VIEW, 01/16/2021, 9:44. [facility], CR, XR CHEST 1V, 01/12/2021, 12:51. FINDINGS: Surgical changes and devices: None. Lungs and pleura: On this semiupright portable chest examination, no large pneumothorax or large pleural effusions are seen. No focal infiltrates are seen. Low lung volumes are noted. This causes a crowded appearance to the lung markings and limits evaluation. Mediastinum: Mediastinal contours appear normal. Heart size is normal. Bones and chest wall: No suspicious bony lesions. Age-appropriate bony degenerative changes are seen, particularly involving the shoulders. Overlying soft tissues appear unremarkable. IMPRESSION: Negative for focal infiltrate. Dictated by: Mahendra Snow M.D. on 03/15/2021 at 8:13 Approved by: Mahendra Snow M.D. on 03/15/2021 at 8:14
--- NOTE | 2021-03-15 09:19 | ED.GENADULT ---
HPI - General Adult General Chief complaint: Fever Stated complaint: Suspected sepsis, fever Time Seen by Provider: 03/15/21 08:50 Source: patient and EMS Mode of arrival: EMS Limitations: physical limitation History of Present Illness HPI narrative: Patient is a 60-year-old male. History of MS. Is a functional quadriplegic. Does not ambulate. Per report has had multiple urinary tract infections in the past. Today patient has no symptoms. Apparently a temperature taken this morning with routine vital signs at the facility where he lives and he was found to be febrile. Patient was sent to the emergency department because he has had ?sepsis ?in the past. He denies chest pain. No shortness of breath. No abdominal pain. No nausea vomiting. He does have a indwelling Hightower catheter that was changed less than 7 days ago. No headache. No change in his neurologic status. Related Data Home Medications Medication Instructions Recorded Confirmed acetaminophen 325 mg capsule 650 mg PO Q4H PRN 12/30/20 01/12/21 aspirin 81 mg tablet 81 mg PO QAM 12/30/20 01/12/21 atorvastatin 20 mg tablet 20 mg PO QAM 12/30/20 01/12/21 bismuth subsalicylate 262 mg/15 mL 524 mg PO Q4HR PRN 12/30/20 01/12/21 oral suspension (Pepto-Bismol) chlorhexidine gluconate 2 % See Rx Instructions .ROUTE .COMPLEX 12/30/20 01/12/21 topical liquid docusate sodium 100 mg capsule 200 mg PO QAM 12/30/20 01/12/21 ferrous sulfate 325 mg (65 mg 325 mg PO QAM 12/30/20 01/12/21 iron) capsule,extended release hydrocodone 5 mg-acetaminophen 325 1 - 2 tab PO Q6H PRN 12/30/20 01/12/21 mg tablet insulin glargine 100 unit/mL (3 30 unit SUBCUT DAILY 12/30/20 01/12/21 mL) subcutaneous pen (Lantus Solostar U-100 Insulin) lisinopril 5 mg tablet 5 mg PO QAM 12/30/20 01/12/21 loperamide 2 mg capsule 2 mg PO QID PRN 12/30/20 01/12/21 pantoprazole 40 mg tablet,delayed 40 mg PO QAM 12/30/20 01/12/21 release polyethylene glycol 3350 17 gram 17 g PO QAM 12/30/20 01/12/21 oral powder packet tamsulosin 0.4 mg capsule 0.4 mg PO QAM 12/30/20 01/12/21 Previous Rx's Medication Instructions Recorded cephalexin 500 mg capsule 500 mg PO BID 7 Days #14 cap 03/15/21 Allergies Allergy/AdvReac Type Severity Reaction Status Date / Time No Known Drug Allergies Allergy Verified 01/12/21 13:36 Review of Systems Constitutional Constitutional: Reports fever(s), Denies headache(s) and Denies weakness Eyes Eyes: Reports system reviewed and no additional complaints, except as documented ENT Ears, Nose, Mouth, and Throat: Reports system reviewed and no additional complaints, except as documented and Denies headache(s) Cardiovascular Cardiovascular: Reports system reviewed and no additional complaints, except as documented Respiratory Respiratory: Reports system reviewed and no additional complaints, except as documented Gastrointestinal Gastrointestinal: Reports system reviewed and no additional complaints, except as documented Genitourinary Genitourinary: Reports system reviewed and no additional complaints, except as documented Musculoskeletal Musculoskeletal: Reports system reviewed and no additional complaints, except as documented Integumentary/Breasts Skin/Breast: Reports system reviewed and no additional complaints, except as documented Neurologic Neurologic: Reports system reviewed and no additional complaints, except as documented, Denies headache(s) and Denies weakness Endocrine Endocrine: Reports system reviewed and no additional complaints, except as documented Hematologic/Lymphatic On Anticoagulants: No Allergic/Immunologic Allergic/Immunologic: Reports system reviewed and no additional complaints, except as documented Patient History Medical History Chronic anemia Chronic kidney disease Hyperlipidemia Hypertension Multiple sclerosis Neurogenic bladder Stroke Type 2 diabetes mellitus Social History household members: caregiver Smoking Status: Never smoker alcohol intake: former Smoking Status: Never smoker alcohol intake frequency: 0-2 drinks per day Substance Use Type: does not use Exam Initial Vital Signs Initial Vital Signs: Vital Signs Temperature 100.2 F H 03/15/21 08:54 Pulse Rate 124 H 03/15/21 08:54 Respiratory Rate 16 03/15/21 08:54 Blood Pressure 122/82 03/15/21 08:54 Pulse Oximetry 96 03/15/21 08:54 Const General: cooperative and comfortable Limitations: mental status not altered HENMT Head: normal to inspection Eyes General: appearance normal, both eyes and all related structures Chest Chest: normal inspection of the chest Resp Effort & Inspection: normal respiratory effort Auscultation: clear to auscultation bilaterally Cardio Rate: tachycardic Rhythm: regular rhythm GI Inspection: normal to inspection and non-distended Palpation: soft Skin General: no rashes or lesions noted Neuro General: patient alert, patient awake and patient oriented x3 Other: Inability to move arms or legs. This is baseline for him. Extrem General: capillary refill normal Psych Appearance: grossly normal Course Orders Ordered: ED Orders 03/15/21 08:51 XR chest 1V Stat 03/15/21 08:52 EKG-12 Lead Stat 03/15/21 09:05 COVID19 -Nasal swab/Pre-Proc Stat 03/15/21 09:15 Complete Blood Count AUTO DIFF Stat Comprehensive Metabolic Panel Stat Lactate (Lactic Acid) Stat Procalcitonin Stat Urinalysis and Microscopic Stat Urine Culture Stat 03/15/21 09:56 Blood Culture Stat 03/15/21 10:44 EC echo limited Stat Discontinued Medications Hydrocodone Bitart/Acetaminophen (Hydrocodone/Acet 5/325 Tablet) 1 tab PO NOW ONE Stop: 03/15/21 13:10 Last Admin: 03/15/21 13:33 Dose: 1 tab Documented by: COLLIN Sodium Chloride (Normal Saline 0.9%) 1,000 mls @ 125 mls/hr IV CONT AMINATA Last Infusion: 03/15/21 13:32 Dose: 0 mls/hr Documented by: Admin: 03/15/21 09:32 Dose: 125 mls/hr Documented by: COLLIN Ceftriaxone Sodium 1,000 mg/ (Sodium Chloride) 100 mls @ 200 mls/hr IV NOW ONE Stop: 03/15/21 09:07 Last Infusion: 03/15/21 10:55 Dose: 0 mls/hr Documented by: Admin: 03/15/21 10:10 Dose: 200 mls/hr Documented by: COLLIN Vital Signs Vital signs: Vital Signs - 8 hr 03/15/21 08:54 03/15/21 09:35 03/15/21 09:53 Temperature 100.2 F H Pulse Rate 124 H 112 H 111 H Respiratory Rate 16 20 19 Blood Pressure 122/82 113/60 Pulse Oximetry 96 98 92 03/15/21 09:54 03/15/21 10:00 03/15/21 10:30 Temperature Pulse Rate 112 H 109 H 108 H Respiratory Rate 21 20 19 Blood Pressure 110/67 Pulse Oximetry 90 L 97 98 03/15/21 11:00 03/15/21 11:30 03/15/21 12:00 Temperature Pulse Rate 105 H 108 H 108 H Respiratory Rate 18 20 19 Blood Pressure Pulse Oximetry 98 100 99 03/15/21 12:30 03/15/21 13:00 03/15/21 13:30 Temperature Pulse Rate 106 H 111 H 113 H Respiratory Rate 19 19 20 Blood Pressure Pulse Oximetry 99 99 99 03/15/21 13:36 Temperature Pulse Rate 111 H Respiratory Rate 18 Blood Pressure 118/58 L Pulse Oximetry 99 Medical Decision Making Medical Records Medical records reviewed: Yes I reviewed the patient's medical records. Lab Data Lab results reviewed: Yes I reviewed the patient's lab results. Result diagrams: 03/15/21 09:15 03/15/21 09:15 Labs: Lab Results 03/15/21 03/15/21 03/15/21 Range/Units 09:05 09:15 09:15 WBC 6.9 (4.5-11.0) X10^3/uL RBC 4.60 (4.5-5.9) X10^6/uL Hgb 12.8 L (13.5-17.5) g/dL Hct 39.0 L (41-53) % MCV 84.9 (80-100) fL MCH 27.8 (26-34) PG MCHC 32.7 (30-36) % RDW 17.6 H (11.6-14.8) % Plt Count 234 (150-400) X10^3/uL Neut % (Auto) 80.3 H (50-75) % Lymph % (Auto) 6.7 L (25-40) % [place] % (Auto) 11.7 (3-14) % Eos % (Auto) 0.8 L (2-4) % Baso % (Auto) 0.5 (0-2) % Neut # (Auto) 5500 (6977-0786) /uL Lymph # (Auto) 500 L (2661-5954) /uL [place] # (Auto) 800 (0-900) /uL Eos # (Auto) 100 (0-450) /uL Baso # (Auto) 0 (0-100) /uL Sodium 139 (137-145) mmol/L Potassium 4.0 (3.4-5.1) mmol/L Chloride 101 (98-107) mmol/L Carbon Dioxide 26 (22-32) mmol/L BUN 44 H (9-20) mg/dL Creatinine 3.29 H (0.66-1.25) mg/dL Estimated GFR 19.2 L (>60) mL/min BUN/Creatinine Ratio 13.4 (6-22) Glucose 129 H (80-110) mg/dL Lactate (0.7-2.1) mmol/L Calcium 8.7 (8.4-10.2) mg/dL Total Bilirubin 0.4 (0.2-1.3) mg/dL AST 16 L (17-59) IU/L ALT 9 (<50) IU/L Alkaline Phosphatase 82 (38-126) U/L Total Protein 6.9 (6.3-8.2) g/dL Albumin 3.9 (3.5-5.0) g/dL Globulin 3.0 (1.7-4.1) g/dL Albumin/Globulin Ratio 1.3 (1.0-2.8) Procalcitonin (<0.5) ng/mL Urine Color Urine Appearance Urine pH (4.5-8.0) Ur Specific [place] (1.000-1.035) Urine Protein (Negative) Urine Glucose (UA) (Negative) g/dL Urine Ketones (NEGATIVE) Urine Occult Blood (Negative) Urine Nitrate (Negative) Urine Bilirubin (NEGATIVE) Urine Urobilinogen (0.2) E.U./dL Ur Leukocyte Esterase (NEGATIVE) Urine RBC (0-5/HPF) Urine WBC (0-5/HPF) Urine Bacteria (None) Ur Culture Indicated? SARS-CoV-2 (PCR) Negative (Negative) 03/15/21 03/15/21 03/15/21 Range/Units 09:15 09:15 09:15 WBC (4.5-11.0) X10^3/uL RBC (4.5-5.9) X10^6/uL Hgb (13.5-17.5) g/dL Hct (41-53) % MCV (80-100) fL MCH (26-34) PG MCHC (30-36) % RDW (11.6-14.8) % Plt Count (150-400) X10^3/uL Neut % (Auto) (50-75) % Lymph % (Auto) (25-40) % [place] % (Auto) (3-14) % Eos % (Auto) (2-4) % Baso % (Auto) (0-2) % Neut # (Auto) (2358-4899) /uL Lymph # (Auto) (5318-9383) /uL [place] # (Auto) (0-900) /uL Eos # (Auto) (0-450) /uL Baso # (Auto) (0-100) /uL Sodium (137-145) mmol/L Potassium (3.4-5.1) mmol/L Chloride (98-107) mmol/L Carbon Dioxide (22-32) mmol/L BUN (9-20) mg/dL Creatinine (0.66-1.25) mg/dL Estimated GFR (>60) mL/min BUN/Creatinine Ratio (6-22) Glucose (80-110) mg/dL Lactate 0.8 (0.7-2.1) mmol/L Calcium (8.4-10.2) mg/dL Total Bilirubin (0.2-1.3) mg/dL AST (17-59) IU/L ALT (<50) IU/L Alkaline Phosphatase (38-126) U/L Total Protein (6.3-8.2) g/dL Albumin (3.5-5.0) g/dL Globulin (1.7-4.1) g/dL Albumin/Globulin Ratio (1.0-2.8) Procalcitonin 0.44 (<0.5) ng/mL Urine Color Red Urine Appearance Cloudy Urine pH 8.5 H (4.5-8.0) Ur Specific [place] 1.010 (1.000-1.035) Urine Protein 3+ H (Negative) Urine Glucose (UA) Negative (Negative) g/dL Urine Ketones Negative (NEGATIVE) Urine Occult Blood 3+ H (Negative) Urine Nitrate Negative (Negative) Urine Bilirubin Negative (NEGATIVE) Urine Urobilinogen 0.2 (0.2) E.U./dL Ur Leukocyte Esterase 3+ H (NEGATIVE) Urine RBC >100/hpf H (0-5/HPF) Urine WBC 10-30/hpf H (0-5/HPF) Urine Bacteria Many (>30) H (None) Ur Culture Indicated? Culture not indicate SARS-CoV-2 (PCR) (Negative) Imaging Data Chest x-ray: Radiologist's Impression: [address] [address] XRay Report Signed Patient: Kendra Valentin MR#: [id number] : 1960 Acct:[id number] Age/Sex: 60 / M Date of Service: 03/15/21 Loc: ED Accession Number: [id number] ?? Procedure: XR chest 1V Ordering Provider: Gal Leyva D.O. PROCEDURE:? XR CHEST 1V ? INDICATIONS:? eval for PNA ? TECHNIQUE:? One view of the chest was acquired.? ? COMPARISON:? [facility], CT, CT CHEST WITHOUT CONTRAST, 01/16/2021, 14:02.? [facility], CR, XR CHEST 1 VIEW, 01/16/2021, 9:44.? [facility], CR, XR CHEST 1V, 01/12/2021, 12:51. ? FINDINGS:? ? Surgical changes and devices:? None.? ? Lungs and pleura:? On this semiupright portable chest examination, no large pneumothorax or large pleural effusions are seen.? No focal infiltrates are seen.? Low lung volumes are noted. This causes a crowded appearance to the lung markings and limits evaluation.? ? Mediastinum:? Mediastinal contours appear normal.? Heart size is normal.? ? Bones and chest wall:? No suspicious bony lesions.? Age-appropriate bony degenerative changes are seen, particularly involving the shoulders. ? Overlying soft tissues appear unremarkable.? IMPRESSION:? Negative for focal infiltrate. ? ? Dictated by: Mahendra Snow M.D. on 03/15/2021 at 8:13 ? ? Approved by: Mahendra Snow M.D. on 03/15/2021 at 8:14?? echo: Radiologist's Impression: [place] [address] [place] [id number] Echocardiography Report Signed Patient: Kendra Valentin MR#: [id number] : 1960 Acct:[id number] Age/Sex: 60 / M Date of Service: 03/15/21 Loc: ED Accession Number: [id number] ?? Procedure: EC echo limited Ordering Provider: Gal Leyva D.O. ? [place] +---------+? [facility]? +---------+ : ? :? [address] [place] [address]. ? : ? : : ? :? [place], [place] ? : ? : : ? :? [address] ? : ? : : ? : ? Phone: [phone]? : ? : [phone]? [phone]? +---------+ ? Echocardiogram Report + + :Name: KENDRA VALENTIN ? Study Date: 03/15/2021 ? Height: 67 in? : :[facility] ? ? ReadingLocation: ? Weight: 205 lb : : ? Gender: Male ? BSA: 2.0 m2? ? : :: 1960? Age: 60 yrs? BP: 110/67 mmHg: :Reason For Study: PERICARDIAL EFFUSION ? : :Ordering Physician: GUERRERO,? : :GAL? Performed By: Mouna Espino? : :Referring: GAL LEYVA ? : + + Interpretation Summary The ejection fraction is estimated to be 60-65%. ? The right ventricle is normal in size and function. ? Trace pericardial effusion near the right ventricle. ? Compared to the prior study dated 01/16/2021, the pericardial effusion has decreased in size. ? Procedure: ? A two-dimensional transthoracic echocardiogram with color flow and Doppler was performed in limited views only to assess pericardial effusion.. The study quality was technically adequate. Comparison is made with the echocardiogram of 01/16/2021. The patient had frequent PVCs during the exam. Left Ventricle: ? The left ventricle is normal in size and wall thickness. The ejection fraction is estimated to be 60-65%. Right Ventricle: ? The right ventricle is normal in size and function. Atria: ? Both atria are normal in size. Mitral Valve: ? The mitral valve is normal. Tricuspid Valve: ? The tricuspid valve is not well visualized, but is grossly normal. Great Vessels: ? The IVC is of normal diameter and collapses greater than 50% with a sniff. This suggests a low right atrial pressure of 3 mm Hg. Pericardium/ Pleura ? There is a trivial pericardial effusion noted. ? MMode/2D Measurements & Calculations LVIDd: 4.6 cm ? IVC diam: 1.2 cm LVIDs: 3.0 cm FS: 34.3 % IVSd: 1.1 cm LVPWd: 0.93 cm LV pastor. diameter/BSA (cm/m^2): 2.2 LV sys. diameter/BSA (cm/m^2): 1.5 ? Reading Physician:12:56 PM ECG Data Attestation: I personally reviewed and interpreted this ECG as follows: Interpretation: Sinus tachycardia Ventricular rate 113 Normal axis Normal QRS Normal QTC nonspecific ST T wave changes No electrical alternans MDM Narrative Medical decision making narrative: Patient is at his baseline neurologic status. His labs are reassuring. Urinalysis concern for a urinary tract infection. He has had urinary tract infections in the past. Was given Rocephin. Was sent home with Keflex. Echocardiogram was ordered secondary to his prior issue with cardiac tamponade. He was tachycardic upon arrival today a. The echocardiogram does not show any reaccumulation of the pericardial effusion. Patient feels well. No indication for admission to the hospital. Patient not hypotensive. Will discharge home. He was given return precautions. He expressed understanding and agreement. Discharge Plan Departure Patient Disposition: Home Clinical Impression: Acute UTI Instructions: DI for Urinary Tract Infection (UTI) Activity Restrictions/Additional Instructions: Your workup here in the emergency department is consistent with a urinary tract infection. Will start you on antibiotics. A urine culture was pending at the time of your discharge we will contact you we need to change any of your antibiotics. Continue the rest of your medications as directed. Return to the emergency department for any new or worsening symptoms Prescriptions: New cephalexin 500 mg capsule 500 mg PO BID 7 Days Qty: 14 RF: 0 No Action atorvastatin 20 mg tablet 20 mg PO QAM RF: 0 loperamide 2 mg Capsule 2 mg PO QID PRN (Reason: Diarrhea) RF: 0 polyethylene glycol 3350 17 gram Powder In Packet 17 g PO QAM RF: 0 hydrocodone-acetaminophen 5-325 mg Tablet 1 - 2 tab PO Q6H PRN (Reason: Pain (Scale Score 7-10)) RF: 0 tamsulosin 0.4 mg Capsule 0.4 mg PO QAM RF: 0 pantoprazole 40 mg Tablet,Delayed Release (Dr/Ec) 40 mg PO QAM RF: 0 bismuth subsalicylate [Pepto-Bismol] 262 mg/15 mL Suspension 524 mg PO Q4HR PRN (Reason: loose stools / upset stomach) RF: 0 chlorhexidine gluconate 2 % Liquid See Rx Instructions .ROUTE .COMPLEX RF: 0 docusate sodium 100 mg Capsule 200 mg PO QAM RF: 0 aspirin 81 mg Tablet 81 mg PO QAM RF: 0 lisinopril 5 mg tablet 5 mg PO QAM RF: 0 ferrous sulfate 325 mg (65 mg iron) Capsule, Extended Release 325 mg PO QAM RF: 0 acetaminophen 325 mg Capsule 650 mg PO Q4H PRN (Reason: fever/pain) RF: 0 Lantus Solostar U-100 Insulin 100 unit/mL (3 mL) insulin pen 30 unit SUBCUT DAILY RF: 0 Referrals: Keeley Michel MD [Primary Care Provider] -
[2021-03-15] MEDS: SODIUM CHLORIDE 0.9% 1,000 ML 125 ML IV (09:32)
[2021-03-15 09:34] LABS: Add Manual Diff / Slide Review NO; Basophils Absolute Auto 0 /uL (0-100); Basophils Percent Auto 0.5 % (0-2); Eosinophils Absolute Auto 100 /uL (0-450); Eosinophils Percent Auto 0.8 % (2-4); Hemoglobin 12.8 g/dL (13.5-17.5); Lymphocytes Absolute Auto 500 /uL (1100-4500); Lymphocytes Percent Auto 6.7 % (25-40); Mean Corpuscular HGB Conc 32.7 % (30-36); Mean Corpuscular Hemoglobin 27.8 PG (26-34); Mean Corpuscular Volume 84.9 fL (80-100); Monocytes Absolute Auto 800 /uL (0-900); Monocytes Percent Auto 11.7 % (3-14); Neutrophils Absolute Auto 5500 /uL (1500-7000); Neutrophils Percent Auto 80.3 % (50-75); Platelet Count 234 X10^3/uL (150-400); Red Cell Distribution Width 17.6 % (11.6-14.8); White Blood Cell Count 6.9 X10^3/uL (4.5-11.0)
[2021-03-15 09:37] LABS: Appearance Urine UA CLOUDY; Bilirubin Urine UA NEGATIVE (NEGATIVE); Color Urine UA RED; Glucose Urine UA NEGATIVE (Negative); Ketones Urine UA NEGATIVE (NEGATIVE); Leukocyte Esterase Urine UA 3+ (NEGATIVE); Nitrite Urine UA NEGATIVE (Negative); Occult Blood Urine UA 3+ (Negative); Protein Urine UA 3+ (Negative); Urobilinogen Urine UA 0.2 E.U./dL (0.2); pH Urine UA 8.5 (4.5-8.0)
[2021-03-15 09:43] LABS: Alanine Aminotransferase 9 IU/L (<50); Albumin 3.9 g/dL (3.5-5.0); Albumin Globulin Ratio 1.3 (1.0-2.8); Alkaline Phosphatase 82 U/L (38-126); Aspartate Aminotransferase 16 IU/L (17-59); BUN Creatinine Ratio 13.4 (6-22); Bilirubin Total 0.4 mg/dL (0.2-1.3); Blood Urea Nitrogen 44 mg/dL (9-20); Calcium 8.7 mg/dL (8.4-10.2); Carbon Dioxide 26 mmol/L (22-32); Chloride 101 mmol/L (98-107); Estimated Glomerular Filt Rate 19.2 mL/min (>60); Glucose 129 mg/dL (80-110); HEMOLYSIS < 15 (0-50); Lactate (Lactic Acid) 0.8 mmol/L (0.7-2.1); Sodium 139 mmol/L (137-145); Total Protein 6.9 g/dL (6.3-8.2)
[2021-03-15 09:51] LABS: Bacteria Urine Many (>30); RBC Urine >100/HPF (0-5/HPF); WBC Urine 10-30/HPF (0-5/HPF)
[2021-03-15 09:55] LABS: COVID19 -Nasal RAPID Negative (Negative)
[2021-03-15 09:59] LABS: Procalcitonin 0.44 ng/mL (<0.5)
[2021-03-15] MEDS: cefTRIAXone 1,000 MG in SODIUM CHLORIDE 0.9% 100 ML 200 ML IV (10:10)
--- NOTE | 2021-03-15 10:44 | DI.ECHO.S_ITS ---
[facility] +---------+ : : [address] : : : : [id number] : : : : Phone: [phone] : [phone] +---------+ Echocardiogram Report + + :Name: KENDRA VALENTIN Study Date: 03/15/2021 Height: 67 in : :[facility] ReadingLocation: Weight: 205 lb : : Gender: Male BSA: 2.0 m2 : :: 1960 Age: 60 yrs BP: 110/67 mmHg: :Reason For Study: PERICARDIAL EFFUSION : :Ordering Physician: GUERRERO, : :SHAE Performed By: Mouna Espino : :Referring: SHAE MASTERS : + + Interpretation Summary The ejection fraction is estimated to be 60-65%. The right ventricle is normal in size and function. Trace pericardial effusion near the right ventricle. Compared to the prior study dated 01/16/2021, the pericardial effusion has decreased in size. Procedure: A two-dimensional transthoracic echocardiogram with color flow and Doppler was performed in limited views only to assess pericardial effusion.. The study quality was technically adequate. Comparison is made with the echocardiogram of 01/16/2021. The patient had frequent PVCs during the exam. Left Ventricle: The left ventricle is normal in size and wall thickness. The ejection fraction is estimated to be 60-65%. Right Ventricle: The right ventricle is normal in size and function. Atria: Both atria are normal in size. Mitral Valve: The mitral valve is normal. Tricuspid Valve: The tricuspid valve is not well visualized, but is grossly normal. Great Vessels: The IVC is of normal diameter and collapses greater than 50% with a sniff. This suggests a low right atrial pressure of 3 mm Hg. Pericardium/ Pleura There is a trivial pericardial effusion noted. MMode/2D Measurements & Calculations LVIDd: 4.6 cm IVC diam: 1.2 cm LVIDs: 3.0 cm FS: 34.3 % IVSd: 1.1 cm LVPWd: 0.93 cm LV pastor. diameter/BSA (cm/m^2): 2.2 LV sys. diameter/BSA (cm/m^2): 1.5 Reading Physician:12:56 PM
[2021-03-15] MEDS: HYDROCODONE/ACET 5/325 TABLET 1 TAB PO (13:33)
--- NOTE | 2021-03-15 14:00 | PC.NURSE ---
Adolfo, pt's son, and [facility] called by this RN and update given.
== END 2021-03-15 14:19 | disposition home or self-care (01) ==
PROVIDERS: Emergency Provider Emergency Medicine; PCP Internal Medicine
DX: N39.0 Urinary tract infection, site not specified (principal); R07.9 Chest pain, unspecified; Z20.822 Contact with and (suspected) exposure to COVID-19
CPT/HCPCS: 36415; 71045; 80053; 81001; 83605; 84145; 85025; 87040; 87077; 87086; 87186; 87635; 93005; 93307; 96361; 96365; 99284; C9803; J0696

== ENCOUNTER → 2021-03-17 09:05 | Outpatient (CLI) | payer MEDICARE, MEDICAID, SELFPAY ==
[2021-01-12 16:50] VITALS: BMI 35.5
--- NOTE | 2021-03-17 | PATH_ITS ---
Note [facility] Accession Number: [id number] TESTS RESULT FLAG UNITS REF RANGE LAB Clinician Provided Cytology Information No. of containers..00 Previously Prepared Cytology Slide 35 Unknown Storage/container code(s) Source: 01 L THYROID NODULE MID DIAGNOSIS: 01 L THYROID NODULE MID NEGATIVE FOR MALIGNANT CELLS. lBMARGINALLY ADEQUATE FOR EVALUATION. FEW FOLLICULAR GROUPS PRESENT.FAVOR BENIGN FOLLICULAR (GOITEROUS) NODULE (BETHESDA CATEGORY II), SEE COMMENT.lbl COMMENT: Microscopic examination reveals a mildly cellular aspirate, composed of scant colloid and few benign follicular groups (6 groups that are required for adequacy) without significant atypia. Due to low cellularity, sampling error cannot be excluded. Based on the submitted material for evaluation, a benign follicular (goiterous) nodule is favored. Clinical/radiologic correlation is needed to ensure that the nodule has been adequately sampled. According to the [facility] reporting system for thyroid cytopathology, the risk of malignancy in the category benign-category II is 0-3%; therefore, recommend continued ultrasound surveillance with repeat FNA if the nodule significantly increases in size. Pathologist ICD10: 01 E04.1 Signed out by: Jacquelyn De Oliveira MD, Pathologist NPI- [id number] Performed by: Jesus Bower, Grain Processor ([facility]) Gross description: 01 30 CC, PINK, CLEAR Also received 1 RNA vial, 5 alcohol fixed, and 5 quick-stained slides. /[facility] 03/20/2021 [facility] FLAG LEGEND: L-Low Normal,H-High Normal,LL-Alert Low,HH-Alert High <-Panic Low,>-Panic High,A-Abnormal,AA-Critical Abnormal Performed at: 01 =[facility] [address] [place] [address] [address], [place] [address] Orlando Roman MD, Performed at: 01 [facility] [address] [place] [address] [address], [place], [place] [id number] MD Orlando Roman MD Phone: [phone]
--- NOTE | 2021-03-17 | DI.US.S_ITS ---
PROCEDURE: US FINE NEEDLE ASPIRATION INDICATIONS: THYROID NODULE X 2 TECHNIQUE: The indications, alternatives, benefits, risks, and complications of the procedure were explained to the patient. Written informed consent was obtained and placed in the chart. The thyroid region was examined sonographically and a site was chosen for ultrasound guided percutaneous sampling. The skin was prepared and draped in the usual fashion, and anesthetized with 1% lidocaine infiltrated from the skin down to the thyroid gland. Multiple passes were then performed, with contents emptied into an appropriate pathology specimen container. A bandage was applied to the area of access at completion of the study. COMPARISON: None. FINDINGS: Location(s) of lesion(s) sampled: Upper pole of the left lobe and the mid left lobe Buena: 22 and 25 gauge hypodermic needles. Number of passes: 6 passes were made through the left upper lobe nodule (designated lesion 1), and 7 passes were made through the left mid nodule (designated lesion 2) Medications: 1% lidocaine for local anaesthesia. Complications: None. IMPRESSION: Successful ultrasound-guided thyroid nodule fine needle aspiration, with cytology results pending. Please see chart below for management recommendations based on cytology results. [place] [facility] ReportingRecommendationsNon-diagnostic* Repeat US-guided FNA, with on-site cytology evaluation if possible. * Repeated non-diagnostic nodules without high suspicion US features: close observation vs surgical consult. * Consider surgery if nodule has high suspicion US features, grows >20% in 2 dimensions on followup, or patient has clinical risk factors for malignancy. Benign* If nodule has high suspicion US features: repeat US and FNA within 12 months. * If nodule has low to intermediate suspicion US features: repeat US at 12-24 months. If nodule grows (20% increase in at least 2 dimensions, with minimal increase of 2 mm or >50% change in volume), or development of new suspicious US features, then repeat FNA or continue followup. * If nodule has very low suspicion US features: followup US at >24 months. Atypia of undetermined significance, follicular lesion of undetermined significanceRepeat FNA, molecular testing, followup US, or surgical consult.Follicular neoplasm, suspicious for follicular neoplasmSurgical consult; also consider molecular testing. Suspicious for malignancySurgical consult.MalignantSurgical consult. Dictated by: Mich Gonzalez M.D. on 03/17/2021 at 16:19 Approved by: Mich Gonzalez M.D. on 03/17/2021 at 16:20
--- NOTE | 2021-03-17 | PATH_ITS ---
Note [facility] Accession Number: [id number] TESTS RESULT FLAG UNITS REF RANGE LAB Clinician Provided Cytology Information No. of containers..00 Previously Prepared Cytology Slide 35 Unknown Storage/container code(s) Source: L THYROID NODULE SUP DIAGNOSIS: 01 LEFT THYROID NODULE SUP, MID, FINE NEEDLE ASPIRATION. INCONCLUSIVE. BETHESDA CATEGORY III. ATYPIA OF UNDETERMINED SIGNIFICANCE, SEE COMMENT. COMMENT: EXAMINATION OF THE SMEARS REVEALS A HYPOCELLULAR TO MILDLY CELLULAR ASPIRATE, COMPOSED OF SCANT COLLOID, MACROPHAGES AND BENIGN FOLLICULAR GROUPS. IN ADDITION, THERE ARE FEW GROUPS WHERE MILD NUCLEAR ENLARGEMENT, OVERLAPPING, PALLOR AND RARE NUCLEAR MEMBRANE IRREGULARITIES (GROOVES) ARE NOTED. INTRANUCLEAR PSEUDOINCLUSIONS ARE NOT SEEN. THE RISK OF MALIGNANCY IN THE BETHESDA CATEGORY III IS 5-15%. RE-ASPIRATION IS RECOMMENDED. ADDITIONAL MOLECULAR TESTING WILL BE PERFORMED ON THE SUBMITTED RNA VIAL. Pathologist ICD10: 01 E04.2 Signed out by: Lisa Nash MD, Pathologist NPI- [id number] Performed by: Soledad James, Automatic Vulcanizing Lead Operator ([facility]) Gross description: 01 30 CC, PINK, CLEAR Also received 1 RNA vial, 5 alcohol fixed, and 5 quick stained slides. /[facility] 03/20/2021 1201 Local FLAG LEGEND: L-Low Normal,H-High Normal,LL-Alert Low,HH-Alert High <-Panic Low,>-Panic High,A-Abnormal,AA-Critical Abnormal Performed at: 01 =[facility] [address] [place] [address], [place] [address] Orlando Roman MD, Performed at: 01 [facility] [address] [address], [place], [place] [id number] MD Orlando Roman MD Phone: [phone]
== END ==
PROVIDERS: PCP Internal Medicine; Referring Provider Internal Medicine; Visit Provider Internal Medicine
DX: E04.2 Nontoxic multinodular goiter (principal)
CPT/HCPCS: 10005; 10006

== ENCOUNTER → 2021-03-21 07:10 | Outpatient (ROUT) | payer MEDICARE, MEDICAID, SELFPAY ==
[2021-01-12 16:50] VITALS: BMI 35.5
[2021-03-21 07:22] LABS: Add Manual Diff / Slide Review NO; Basophils Absolute Auto 0 /uL (0-100); Basophils Percent Auto 0.6 % (0-2); Eosinophils Absolute Auto 200 /uL (0-450); Eosinophils Percent Auto 4.3 % (2-4); Hematocrit 38.4 % (41-53); Hemoglobin 12.3 g/dL (13.5-17.5); Lymphocytes Absolute Auto 600 /uL (1100-4500); Lymphocytes Percent Auto 15.8 % (25-40); Mean Corpuscular HGB Conc 32.1 % (30-36); Mean Corpuscular Hemoglobin 27.1 PG (26-34); Mean Corpuscular Volume 84.4 fL (80-100); Monocytes Absolute Auto 300 /uL (0-900); Monocytes Percent Auto 8.1 % (3-14); Neutrophils Absolute Auto 2900 /uL (1500-7000); Neutrophils Percent Auto 71.2 % (50-75); Platelet Count 180 X10^3/uL (150-400); Red Blood Cell Count 4.56 X10^6/uL (4.5-5.9); Red Cell Distribution Width 17.3 % (11.6-14.8); White Blood Cell Count 4.1 X10^3/uL (4.5-11.0)
[2021-03-21 07:33] LABS: BUN Creatinine Ratio 17.4 (6-22); Blood Urea Nitrogen 51 mg/dL (9-20); Calcium 8.1 mg/dL (8.4-10.2); Carbon Dioxide 23 mmol/L (22-32); Chloride 101 mmol/L (98-107); Glucose 182 mg/dL (80-110); HEMOLYSIS < 15 (0-50); Potassium 3.9 mmol/L (3.4-5.1); Sodium 136 mmol/L (137-145)
== END ==
PROVIDERS: PCP Internal Medicine; Visit Provider Nurse Practitioner Family
DX: N18.9 Chronic kidney disease, unspecified (principal)
CPT/HCPCS: 36415; 80048; 85025

== ENCOUNTER → 2021-03-28 09:18 | Outpatient (ROUT) | payer MEDICARE, MEDICAID, SELFPAY ==
[2021-01-12 16:50] VITALS: BMI 35.5
[2021-03-28 10:20] LABS: Add Manual Diff / Slide Review NO; BUN Creatinine Ratio 25.9 (6-22); Basophils Absolute Auto 0 /uL (0-100); Basophils Percent Auto 0.4 % (0-2); Blood Urea Nitrogen 68 mg/dL (9-20); Calcium 8.8 mg/dL (8.4-10.2); Carbon Dioxide 27 mmol/L (22-32); Chloride 100 mmol/L (98-107); Eosinophils Absolute Auto 600 /uL (0-450); Eosinophils Percent Auto 7.7 % (2-4); Estimated Glomerular Filt Rate 24.9 mL/min (>60); Glucose 72 mg/dL (80-110); HEMOLYSIS < 15 (0-50); Hemoglobin 11.1 g/dL (13.5-17.5); Lymphocytes Absolute Auto 800 /uL (1100-4500); Lymphocytes Percent Auto 10.2 % (25-40); Mean Corpuscular HGB Conc 32.8 % (30-36); Mean Corpuscular Volume 82.4 fL (80-100); Monocytes Absolute Auto 800 /uL (0-900); Neutrophils Absolute Auto 5600 /uL (1500-7000); Neutrophils Percent Auto 71.7 % (50-75); Platelet Count 403 X10^3/uL (150-400); Potassium 3.4 mmol/L (3.4-5.1); Red Blood Cell Count 4.13 X10^6/uL (4.5-5.9); Red Cell Distribution Width 16.5 % (11.6-14.8); Sodium 136 mmol/L (137-145); White Blood Cell Count 7.8 X10^3/uL (4.5-11.0)
== END ==
PROVIDERS: PCP Internal Medicine; Visit Provider Nurse Practitioner Family
DX: N18.9 Chronic kidney disease, unspecified (principal); U07.1 COVID-19
CPT/HCPCS: 36415; 80048; 85025

== ENCOUNTER → 2021-04-04 08:11 | Outpatient (ROUT) | payer MEDICARE, MEDICAID, SELFPAY ==
[2021-01-12 16:50] VITALS: BMI 35.5
[2021-04-04 09:34] LABS: Blood Urea Nitrogen 80 mg/dL (9-20); Calcium 8.9 mg/dL (8.4-10.2); Carbon Dioxide 28 mmol/L (22-32); Chloride 99 mmol/L (98-107); Estimated Glomerular Filt Rate 24.5 mL/min (>60); Glucose 89 mg/dL (80-110); HEMOLYSIS < 15 (0-50); Potassium 3.4 mmol/L (3.4-5.1); Sodium 137 mmol/L (137-145)
== END ==
PROVIDERS: PCP Internal Medicine; Visit Provider Nurse Practitioner Family
DX: N18.9 Chronic kidney disease, unspecified (principal)
CPT/HCPCS: 36415; 80048

== ENCOUNTER → 2021-04-11 08:10 | Outpatient (ROUT) | payer MEDICARE, MEDICAID, SELFPAY ==
[2021-01-12 16:50] VITALS: BMI 35.5
[2021-04-11 08:48] LABS: Add Manual Diff / Slide Review NO; Basophils Absolute Auto 100 /uL (0-100); Basophils Percent Auto 1.1 % (0-2); Eosinophils Absolute Auto 1300 /uL (0-450); Eosinophils Percent Auto 13.7 % (2-4); Hematocrit 34.9 % (41-53); Hemoglobin 11.4 g/dL (13.5-17.5); Lymphocytes Absolute Auto 1300 /uL (1100-4500); Lymphocytes Percent Auto 13.3 % (25-40); Mean Corpuscular HGB Conc 32.7 % (30-36); Mean Corpuscular Hemoglobin 27.3 PG (26-34); Mean Corpuscular Volume 83.7 fL (80-100); Monocytes Absolute Auto 900 /uL (0-900); Monocytes Percent Auto 9.8 % (3-14); Neutrophils Absolute Auto 5900 /uL (1500-7000); Neutrophils Percent Auto 62.1 % (50-75); Platelet Count 330 X10^3/uL (150-400); Red Blood Cell Count 4.17 X10^6/uL (4.5-5.9); Red Cell Distribution Width 17.3 % (11.6-14.8); White Blood Cell Count 9.5 X10^3/uL (4.5-11.0)
[2021-04-11 09:12] LABS: BUN Creatinine Ratio 20.8 (6-22); Blood Urea Nitrogen 53 mg/dL (9-20); Calcium 8.7 mg/dL (8.4-10.2); Carbon Dioxide 29 mmol/L (22-32); Chloride 102 mmol/L (98-107); Estimated Glomerular Filt Rate 25.8 mL/min (>60); Glucose 70 mg/dL (80-110); HEMOLYSIS < 15 (0-50); Potassium 3.7 mmol/L (3.4-5.1); Sodium 139 mmol/L (137-145)
== END ==
PROVIDERS: PCP Internal Medicine; Visit Provider Nurse Practitioner Family
DX: N18.9 Chronic kidney disease, unspecified (principal)
CPT/HCPCS: 36415; 80048; 85025

== ENCOUNTER → 2021-04-18 07:46 | Outpatient (ROUT) | payer MEDICARE, MEDICAID, SELFPAY ==
[2021-01-12 16:50] VITALS: BMI 35.5
[2021-04-18 08:34] LABS: Add Manual Diff / Slide Review NO; Basophils Absolute Auto 100 /uL (0-100); Basophils Percent Auto 0.8 % (0-2); Eosinophils Absolute Auto 800 /uL (0-450); Eosinophils Percent Auto 7.8 % (2-4); Hematocrit 35.9 % (41-53); Hemoglobin 11.7 g/dL (13.5-17.5); Lymphocytes Absolute Auto 1200 /uL (1100-4500); Lymphocytes Percent Auto 11.2 % (25-40); Mean Corpuscular HGB Conc 32.6 % (30-36); Mean Corpuscular Hemoglobin 27.5 PG (26-34); Mean Corpuscular Volume 84.4 fL (80-100); Monocytes Absolute Auto 900 /uL (0-900); Monocytes Percent Auto 8.3 % (3-14); Neutrophils Absolute Auto 7900 /uL (1500-7000); Neutrophils Percent Auto 71.9 % (50-75); Platelet Count 290 X10^3/uL (150-400); Red Blood Cell Count 4.25 X10^6/uL (4.5-5.9); Red Cell Distribution Width 17.1 % (11.6-14.8); White Blood Cell Count 10.9 X10^3/uL (4.5-11.0)
[2021-04-18 08:49] LABS: HEMOLYSIS < 15 (0-50); Iron 41 ug/dL (49-181)
[2021-04-18 08:51] LABS: Alanine Aminotransferase 10 IU/L (<50); Albumin 3.4 g/dL (3.5-5.0); Albumin Globulin Ratio 1.3 (1.0-2.8); Alkaline Phosphatase 66 U/L (38-126); Aspartate Aminotransferase 15 IU/L (17-59); BUN Creatinine Ratio 18.7 (6-22); Bilirubin Total 0.3 mg/dL (0.2-1.3); Bilirubin Unconjugated 0.2 mg/dL (0.0-1.1); Blood Urea Nitrogen 48 mg/dL (9-20); Calcium 9.1 mg/dL (8.4-10.2); Carbon Dioxide 30 mmol/L (22-32); Chloride 103 mmol/L (98-107); Estimated Glomerular Filt Rate 25.6 mL/min (>60); Globulin 2.7 g/dL (1.7-4.1); Glucose 60 mg/dL (80-110); HEMOLYSIS < 15 (0-50); Magnesium 2.1 mg/dL (1.6-2.3); Phosphorous 3.8 mg/dL (2.3-3.7); Potassium 3.7 mmol/L (3.4-5.1); Sodium 141 mmol/L (137-145); Total Protein 6.1 g/dL (6.3-8.2)
[2021-04-18 08:54] LABS: Microalbumin Urine Random 13.6 mg/dL (0-1.6)
[2021-04-18 08:56] LABS: Creatinine Urine Random 75.7 mg/dL; Microalbumi Creatinin Ratio Ur 179.6 ug/mg CR (<30)
[2021-04-18 09:00] LABS: Percent Iron Saturation 20 % (20-50); Total Iron Binding Capacity 205 ug/dL (261-462); Transferrin 142 mg/dL (206-381)
[2021-04-18 09:26] LABS: Ferritin 69 ng/mL (18-464)
[2021-04-19 23:54] LABS: Parathyroid Hormone, Intact 39 pg/mL (15-65)
== END ==
PROVIDERS: PCP Internal Medicine; Visit Provider Internal Medicine Nephrology
DX: I10 Essential (primary) hypertension (principal); Q76 Congenital malformations of spine and bony thorax
CPT/HCPCS: 36415; 80048; 80076; 82043; 82310; 82570; 82728; 83540; 83550; 83735; 83970; 84100; 85025

== ENCOUNTER → 2021-04-23 07:39 | Outpatient (ROUT) | payer MEDICARE, MEDICAID, SELFPAY ==
[2021-01-12 16:50] VITALS: BMI 35.5
[2021-04-23 08:50] LABS: COVID19 - ADMIT (NP swab/PCR) Negative (Negative)
== END ==
PROVIDERS: PCP Internal Medicine; Visit Provider Internal Medicine
DX: Z20.822 Contact with and (suspected) exposure to COVID-19 (principal)
CPT/HCPCS: U0003

== ENCOUNTER → 2021-04-25 08:25 | Outpatient (ROUT) | payer MEDICARE, MEDICAID, SELFPAY ==
[2021-01-12 16:50] VITALS: BMI 35.5
[2021-04-25 09:13] LABS: Hematocrit 33.8 % (41-53); Hemoglobin 11.1 g/dL (13.5-17.5)
== END ==
PROVIDERS: PCP Internal Medicine; Visit Provider Internal Medicine Nephrology
DX: D64.9 Anemia, unspecified (principal)
CPT/HCPCS: 36415; 85014; 85018

== ENCOUNTER → 2021-05-09 16:31 | Outpatient (CLI) | payer MEDICARE, MEDICAID, SELFPAY ==
[2021-01-12 16:50] VITALS: BMI 35.5
[2021-05-09 17:43] LABS: Add Manual Diff / Slide Review NO; Basophils Absolute Auto 100 /uL (0-100); Basophils Percent Auto 0.9 % (0-2); Eosinophils Absolute Auto 900 /uL (0-450); Eosinophils Percent Auto 7.8 % (2-4); Hematocrit 40.2 % (41-53); Hemoglobin 13.3 g/dL (13.5-17.5); Lymphocytes Absolute Auto 1600 /uL (1100-4500); Lymphocytes Percent Auto 13.6 % (25-40); Mean Corpuscular HGB Conc 33.1 % (30-36); Mean Corpuscular Hemoglobin 27.3 PG (26-34); Mean Corpuscular Volume 82.5 fL (80-100); Monocytes Absolute Auto 800 /uL (0-900); Monocytes Percent Auto 6.5 % (3-14); Neutrophils Absolute Auto 8300 /uL (1500-7000); Neutrophils Percent Auto 71.2 % (50-75); Platelet Count 328 X10^3/uL (150-400); Red Blood Cell Count 4.87 X10^6/uL (4.5-5.9); Red Cell Distribution Width 17.2 % (11.6-14.8); White Blood Cell Count 11.7 X10^3/uL (4.5-11.0)
== END ==
PROVIDERS: PCP Internal Medicine; Referring Provider Internal Medicine; Visit Provider Internal Medicine
DX: N18.9 Chronic kidney disease, unspecified (principal)
CPT/HCPCS: 36415; 85025

== ENCOUNTER → 2021-05-16 07:54 | Outpatient (ROUT) | payer MEDICARE, MEDICAID, SELFPAY ==
[2021-01-12 16:50] VITALS: BMI 35.5
[2021-05-16 08:30] LABS: Add Manual Diff / Slide Review NO; Basophils Absolute Auto 100 /uL (0-100); Basophils Percent Auto 1.2 % (0-2); Eosinophils Absolute Auto 1100 /uL (0-450); Eosinophils Percent Auto 13.5 % (2-4); Hematocrit 33.9 % (41-53); Hemoglobin 11.4 g/dL (13.5-17.5); Lymphocytes Absolute Auto 1300 /uL (1100-4500); Lymphocytes Percent Auto 15.2 % (25-40); Mean Corpuscular HGB Conc 33.7 % (30-36); Mean Corpuscular Hemoglobin 27.7 PG (26-34); Mean Corpuscular Volume 82.3 fL (80-100); Monocytes Absolute Auto 600 /uL (0-900); Monocytes Percent Auto 7.7 % (3-14); Neutrophils Absolute Auto 5200 /uL (1500-7000); Neutrophils Percent Auto 62.4 % (50-75); Platelet Count 284 X10^3/uL (150-400); Red Blood Cell Count 4.12 X10^6/uL (4.5-5.9); Red Cell Distribution Width 17.5 % (11.6-14.8); White Blood Cell Count 8.3 X10^3/uL (4.5-11.0)
[2021-05-16 09:07] LABS: Albumin 3.2 g/dL (3.5-5.0); BUN Creatinine Ratio 20.2 (6-22); Blood Urea Nitrogen 50 mg/dL (9-20); Calcium 8.4 mg/dL (8.4-10.2); Carbon Dioxide 27 mmol/L (22-32); Chloride 103 mmol/L (98-107); Estimated Glomerular Filt Rate 26.6 mL/min (>60); Glucose 128 mg/dL (80-110); HEMOLYSIS < 15 (0-50); Potassium 2.9 mmol/L (3.4-5.1); Sodium 136 mmol/L (137-145)
[2021-05-17 10:14] LABS: Calcium 8.3 mg/dL (8.6-10.2); Parathyroid Hormone, Intact 62 pg/mL (15-65)
== END ==
PROVIDERS: PCP Internal Medicine; Visit Provider Internal Medicine Nephrology
DX: N18.4 Chronic kidney disease, stage 4 (severe) (principal)
CPT/HCPCS: 36415; 80069; 82310; 83735; 83970; 85025

== ENCOUNTER → 2021-05-23 07:23 | Outpatient (ROUT) | payer MEDICARE, MEDICAID, SELFPAY ==
[2021-01-12 16:50] VITALS: BMI 35.5
[2021-05-23 08:07] LABS: HEMOLYSIS < 15 (0-50); Potassium 3.4 mmol/L (3.4-5.1)
== END ==
PROVIDERS: PCP Internal Medicine; Visit Provider Internal Medicine
DX: E87.6 Hypokalemia (principal)
CPT/HCPCS: 36415; 84132

== ENCOUNTER → 2021-05-23 13:36 | Outpatient (CLI) | payer MEDICARE, MEDICAID, SELFPAY ==
[2021-01-12 16:50] VITALS: BMI 35.5
--- NOTE | 2021-05-23 13:37 | DI.ECHO.S_ITS ---
[facility]---------+ [facility] +---------+ : : [address] : [address] : : : : [id number] : : : : Phone: [phone]+ Echocardiogram Report + + :Name: KENDRA VALENTIN Study Date: 05/23/2021 Height: 67 in : :[facility] ReadingLocation: Weight: 185 lb: : Gender: Male BSA: 2.0 m2 : :: 1960 Age: 60 yrs : :Reason For Study: PERICARDIAL EFFUSION : :Ordering Physician: FARIDA, : :ELIZABETH Performed By: Mouna Espino : :Referring: ELIZABETH PRIETO : + + Interpretation Summary Limited Echo: There is no pericardial effusion. Procedure: A two-dimensional transthoracic echocardiogram with color flow and Doppler was performed in limited views only to assess pericardial effusion. The study quality was technically adequate. Comparison is made with the echocardiogram of 03/15/2021. The patient was in sinus rhythm with heart rates between 89-101 bpm during the exam. Left Ventricle: The left ventricle is normal in size. Left ventricular wall thickness is borderline increased. The ejection fraction is estimated to be 60-65%. Septal motion is consistent with conduction abnormality. Atria: The left atrium grossly appears normal in size. The right atrium grossly appears normal in size. Great Vessels: The IVC is of normal diameter and collapses greater than 50% with a sniff. This suggests a low right atrial pressure of 3 mm Hg. Pericardium/ Pleura There is no pericardial effusion. There is no pleural effusion. MMode/2D Measurements & Calculations LVIDd: 4.2 cm LA A4 area: 13.8 cm2 LVIDs: 2.8 cm LA length (vol): 4.7 cm FS: 33.6 % IVSd: 1.0 cm LVPWd: 1.1 cm LV pastor. diameter/BSA (cm/m^2): 2.1 LV sys. diameter/BSA (cm/m^2): 1.4 RA long axis: 5.0 cm RA area: 11.1 cm2 RA vol: 21.2 ml RA : 10.8 ml/m2 IVC diam: 1.6 cm Reading Physician:03:12 PM
== END ==
PROVIDERS: PCP Internal Medicine; Referring Provider Internal Medicine Cardiovascular Disease; Visit Provider Internal Medicine Cardiovascular Disease
DX: I31.3 Pericardial effusion (noninflammatory) (principal)
CPT/HCPCS: 93307

== ENCOUNTER → 2021-05-24 11:55 | Outpatient (ROUT) | payer MEDICARE, MEDICAID, SELFPAY ==
[2021-01-12 16:50] VITALS: BMI 35.5
[2021-05-24 12:11] LABS: Add Manual Diff / Slide Review NO; Basophils Absolute Auto 100 /uL (0-100); Basophils Percent Auto 0.6 % (0-2); Eosinophils Absolute Auto 500 /uL (0-450); Eosinophils Percent Auto 3.6 % (2-4); Hematocrit 37.9 % (41-53); Hemoglobin 12.5 g/dL (13.5-17.5); Lymphocytes Absolute Auto 900 /uL (1100-4500); Lymphocytes Percent Auto 6.6 % (25-40); Mean Corpuscular Hemoglobin 27.3 PG (26-34); Mean Corpuscular Volume 82.8 fL (80-100); Monocytes Absolute Auto 800 /uL (0-900); Monocytes Percent Auto 5.7 % (3-14); Neutrophils Absolute Auto 11600 /uL (1500-7000); Neutrophils Percent Auto 83.5 % (50-75); Platelet Count 313 X10^3/uL (150-400); Red Blood Cell Count 4.58 X10^6/uL (4.5-5.9); Red Cell Distribution Width 17.6 % (11.6-14.8); White Blood Cell Count 13.9 X10^3/uL (4.5-11.0)
[2021-05-24 18:53] LABS: Bilirubin Urine UA NEGATIVE (NEGATIVE); Color Urine UA YELLOW; Glucose Urine UA NEGATIVE (Negative); Ketones Urine UA NEGATIVE (NEGATIVE); Leukocyte Esterase Urine UA 3+ (NEGATIVE); Nitrite Urine UA NEGATIVE (Negative); Occult Blood Urine UA 2+ (Negative); Protein Urine UA 2+ (Negative); Urobilinogen Urine UA 0.2 E.U./dL (0.2); pH Urine UA 8.5 (4.5-8.0)
[2021-05-24 19:15] LABS: RBC Urine 10-30/HPF (0-5/HPF)
[2021-05-24 19:16] LABS: Squamous Epithelial Cell Urine 0-1 /HPF (0-5/HPF); Triple Phosphate Crystal Urine Occasional
[2021-05-24 19:20] LABS: Amorphous Sediment Urine 2+; WBC Urine 10-30/HPF (0-5/HPF)
[2021-05-24 19:42] LABS: Appearance Urine UA CLOUDY; Bacteria Urine Many (>30); Culture Indicated Urine Specimen Cultured
== END ==
PROVIDERS: PCP Internal Medicine; Visit Provider Internal Medicine
DX: N18.9 Chronic kidney disease, unspecified (principal)
CPT/HCPCS: 81001; 85025; 87077; 87086; 87186

== ENCOUNTER → 2021-05-25 12:55 | Outpatient (CLI) | payer MEDICARE, MEDICAID, SELFPAY ==
[2021-01-12 16:50] VITALS: BMI 35.5
[2021-05-25 14:08] LABS: Add Manual Diff / Slide Review NO; Basophils Absolute Auto 100 /uL (0-100); Basophils Percent Auto 0.9 % (0-2); Eosinophils Absolute Auto 700 /uL (0-450); Eosinophils Percent Auto 6.7 % (2-4); Hematocrit 37.4 % (41-53); Hemoglobin 12.5 g/dL (13.5-17.5); Lymphocytes Absolute Auto 1200 /uL (1100-4500); Lymphocytes Percent Auto 12.6 % (25-40); Mean Corpuscular HGB Conc 33.3 % (30-36); Mean Corpuscular Hemoglobin 27.6 PG (26-34); Monocytes Absolute Auto 700 /uL (0-900); Monocytes Percent Auto 7.4 % (3-14); Neutrophils Absolute Auto 7200 /uL (1500-7000); Neutrophils Percent Auto 72.4 % (50-75); Platelet Count 320 X10^3/uL (150-400); Red Cell Distribution Width 17.8 % (11.6-14.8); White Blood Cell Count 9.9 X10^3/uL (4.5-11.0)
[2021-05-25 14:20] LABS: Alanine Aminotransferase 9 IU/L (<50); Albumin 3.8 g/dL (3.5-5.0); Albumin Globulin Ratio 1.6 (1.0-2.8); Alkaline Phosphatase 69 U/L (38-126); Aspartate Aminotransferase 13 IU/L (17-59); BUN Creatinine Ratio 20.5 (6-22); Bilirubin Total 0.4 mg/dL (0.2-1.3); Blood Urea Nitrogen 50 mg/dL (9-20); Calcium 9.2 mg/dL (8.4-10.2); Carbon Dioxide 27 mmol/L (22-32); Chloride 104 mmol/L (98-107); Estimated Glomerular Filt Rate 27.1 mL/min (>60); Globulin 2.4 g/dL (1.7-4.1); Glucose 109 mg/dL (80-110); HEMOLYSIS < 15 (0-50); Potassium 3.7 mmol/L (3.4-5.1); Sodium 139 mmol/L (137-145); Total Protein 6.2 g/dL (6.3-8.2)
== END ==
PROVIDERS: PCP Internal Medicine; Referring Provider Internal Medicine; Visit Provider Internal Medicine
DX: N18.1 Chronic kidney disease, stage 1 (principal)
CPT/HCPCS: 36415; 80053; 85025

== ENCOUNTER → 2021-05-30 07:45 | Outpatient (ROUT) | payer MEDICARE, MEDICAID, SELFPAY ==
[2021-01-12 16:50] VITALS: BMI 35.5
[2021-05-30 09:08] LABS: Add Manual Diff / Slide Review NO; Basophils Absolute Auto 100 /uL (0-100); Basophils Percent Auto 1.1 % (0-2); Eosinophils Absolute Auto 1000 /uL (0-450); Eosinophils Percent Auto 10.9 % (2-4); Hematocrit 35.7 % (41-53); Lymphocytes Absolute Auto 1500 /uL (1100-4500); Lymphocytes Percent Auto 16.8 % (25-40); Mean Corpuscular HGB Conc 33.6 % (30-36); Mean Corpuscular Hemoglobin 27.8 PG (26-34); Mean Corpuscular Volume 82.6 fL (80-100); Monocytes Absolute Auto 700 /uL (0-900); Monocytes Percent Auto 7.6 % (3-14); Neutrophils Absolute Auto 5600 /uL (1500-7000); Neutrophils Percent Auto 63.6 % (50-75); Platelet Count 306 X10^3/uL (150-400); Red Blood Cell Count 4.33 X10^6/uL (4.5-5.9); Red Cell Distribution Width 17.5 % (11.6-14.8); White Blood Cell Count 8.8 X10^3/uL (4.5-11.0)
[2021-05-30 09:45] LABS: BUN Creatinine Ratio 18.8 (6-22); Blood Urea Nitrogen 45 mg/dL (9-20); Calcium 8.7 mg/dL (8.4-10.2); Carbon Dioxide 29 mmol/L (22-32); Chloride 105 mmol/L (98-107); Estimated Glomerular Filt Rate 27.8 mL/min (>60); Glucose 70 mg/dL (80-110); HEMOLYSIS < 15 (0-50); Potassium 3.5 mmol/L (3.4-5.1); Sodium 141 mmol/L (137-145)
== END ==
PROVIDERS: PCP Internal Medicine; Visit Provider Internal Medicine Nephrology
DX: N18.9 Chronic kidney disease, unspecified; D64.9 Anemia, unspecified
CPT/HCPCS: 36415; 80048; 85025

== ENCOUNTER → 2021-06-06 07:46 | Outpatient (ROUT) | payer MEDICARE, MEDICAID, SELFPAY ==
[2021-01-12 16:50] VITALS: BMI 35.5
[2021-06-06 08:14] LABS: Add Manual Diff / Slide Review NO; Basophils Absolute Auto 100 /uL (0-100); Eosinophils Absolute Auto 800 /uL (0-450); Eosinophils Percent Auto 9.2 % (2-4); Hematocrit 36.1 % (41-53); Hemoglobin 12.1 g/dL (13.5-17.5); Lymphocytes Absolute Auto 1600 /uL (1100-4500); Lymphocytes Percent Auto 17.3 % (25-40); Mean Corpuscular HGB Conc 33.7 % (30-36); Mean Corpuscular Hemoglobin 28.1 PG (26-34); Mean Corpuscular Volume 83.4 fL (80-100); Monocytes Absolute Auto 700 /uL (0-900); Monocytes Percent Auto 7.4 % (3-14); Neutrophils Absolute Auto 5800 /uL (1500-7000); Neutrophils Percent Auto 65.1 % (50-75); Platelet Count 338 X10^3/uL (150-400); Red Blood Cell Count 4.33 X10^6/uL (4.5-5.9); Red Cell Distribution Width 17.3 % (11.6-14.8)
[2021-06-06 08:39] LABS: HEMOLYSIS 15 (0-50)
== END ==
PROVIDERS: PCP Internal Medicine; Visit Provider Internal Medicine Nephrology
DX: N18.9 Chronic kidney disease, unspecified (principal); D64.9 Anemia, unspecified
CPT/HCPCS: 36415; 84132; 85025

== ENCOUNTER → 2021-06-07 16:33 | Outpatient (ROUT) | payer MEDICARE, MEDICAID, SELFPAY ==
[2021-01-12 16:50] VITALS: BMI 35.5
[2021-06-07 16:59] LABS: Appearance Urine UA SL CLOUDY; Bilirubin Urine UA NEGATIVE (NEGATIVE); Color Urine UA YELLOW; Glucose Urine UA NEGATIVE (Negative); Ketones Urine UA NEGATIVE (NEGATIVE); Leukocyte Esterase Urine UA 2+ (NEGATIVE); Nitrite Urine UA NEGATIVE (Negative); Occult Blood Urine UA TRACE-INTACT (Negative); Protein Urine UA TRACE (Negative); Urobilinogen Urine UA 0.2 E.U./dL (0.2); pH Urine UA 6.5 (4.5-8.0)
[2021-06-07 17:18] LABS: Bacteria Urine None Seen; Culture Indicated Urine Specimen Cultured; RBC Urine 1-5/HPF (0-5/HPF); WBC Urine 5-10/HPF (0-5/HPF)
== END ==
PROVIDERS: PCP Internal Medicine; Visit Provider Specialist
DX: R33.9 Retention of urine, unspecified (principal)
CPT/HCPCS: 81001; 87077; 87086; 87186

== ENCOUNTER → 2021-06-13 07:34 | Outpatient (ROUT) | payer MEDICARE, MEDICAID, SELFPAY ==
[2021-01-12 16:50] VITALS: BMI 35.5
[2021-06-13 09:53] LABS: Basophils Absolute Auto 100 /uL (0-100); Basophils Percent Auto 1.1 % (0-2); Eosinophils Absolute Auto 900 /uL (0-450); Eosinophils Percent Auto 9.8 % (2-4); Hematocrit 33.1 % (41-53); Hemoglobin 11.3 g/dL (13.5-17.5); Lymphocytes Absolute Auto 1600 /uL (1100-4500); Lymphocytes Percent Auto 18.6 % (25-40); Mean Corpuscular HGB Conc 34.1 % (30-36); Mean Corpuscular Hemoglobin 28.4 PG (26-34); Mean Corpuscular Volume 83.2 fL (80-100); Monocytes Absolute Auto 700 /uL (0-900); Monocytes Percent Auto 7.5 % (3-14); Neutrophils Absolute Auto 5600 /uL (1500-7000); Platelet Count 309 X10^3/uL (150-400); Red Blood Cell Count 3.98 X10^6/uL (4.5-5.9); Red Cell Distribution Width 17.4 % (11.6-14.8); White Blood Cell Count 8.8 X10^3/uL (4.5-11.0)
[2021-06-13 09:56] LABS: Add Manual Diff / Slide Review SLIDE REVIEW
[2021-06-13 10:23] LABS: Anisocytosis 1+
[2021-06-13 10:24] LABS: Ovalocytes 1+
[2021-06-13 10:28] LABS: Albumin 3.2 g/dL (3.5-5.0); BUN Creatinine Ratio 18.5 (6-22); Blood Urea Nitrogen 45 mg/dL (9-20); Calcium 8.7 mg/dL (8.4-10.2); Carbon Dioxide 29 mmol/L (22-32); Chloride 106 mmol/L (98-107); Estimated Glomerular Filt Rate 27.3 mL/min (>60); Glucose 77 mg/dL (80-110); HEMOLYSIS < 15 (0-50); Magnesium 2.2 mg/dL (1.6-2.3); Phosphorous 3.2 mg/dL (2.3-3.7); Potassium 3.7 mmol/L (3.4-5.1); Sodium 140 mmol/L (137-145)
== END ==
PROVIDERS: PCP Internal Medicine; Visit Provider Internal Medicine
DX: N18.4 Chronic kidney disease, stage 4 (severe) (principal)
CPT/HCPCS: 36415; 80069; 83735; 85025

== ENCOUNTER → 2021-06-27 16:12 | Outpatient (CLI) | payer MEDICARE, MEDICAID, SELFPAY ==
[2021-01-12 16:50] VITALS: BMI 35.5
[2021-06-27 16:38] LABS: Add Manual Diff / Slide Review NO; Basophils Absolute Auto 100 /uL (0-100); Basophils Percent Auto 0.9 % (0-2); Eosinophils Absolute Auto 700 /uL (0-450); Eosinophils Percent Auto 6.8 % (2-4); Hematocrit 37.8 % (41-53); Hemoglobin 12.7 g/dL (13.5-17.5); Lymphocytes Absolute Auto 1600 /uL (1100-4500); Lymphocytes Percent Auto 15.4 % (25-40); Mean Corpuscular HGB Conc 33.7 % (30-36); Mean Corpuscular Hemoglobin 28.5 PG (26-34); Mean Corpuscular Volume 84.5 fL (80-100); Monocytes Absolute Auto 700 /uL (0-900); Monocytes Percent Auto 6.9 % (3-14); Neutrophils Absolute Auto 7100 /uL (1500-7000); Platelet Count 279 X10^3/uL (150-400); Red Blood Cell Count 4.47 X10^6/uL (4.5-5.9); Red Cell Distribution Width 16.5 % (11.6-14.8); White Blood Cell Count 10.1 X10^3/uL (4.5-11.0)
== END ==
PROVIDERS: Internal Medicine Nephrology; PCP Internal Medicine; Referring Provider Internal Medicine; Visit Provider Internal Medicine
DX: D64.9 Anemia, unspecified (principal)
CPT/HCPCS: 36415; 85025

== ENCOUNTER → 2021-07-01 10:47 | Outpatient (ROUT) | payer MEDICARE, MEDICAID, SELFPAY ==
[2021-01-12 16:50] VITALS: BMI 35.5
[2021-07-01 10:53] LABS: Appearance Urine UA CLOUDY; Bilirubin Urine UA NEGATIVE (NEGATIVE); Color Urine UA YELLOW; Glucose Urine UA NEGATIVE (Negative); Ketones Urine UA NEGATIVE (NEGATIVE); Leukocyte Esterase Urine UA 2+ (NEGATIVE); Nitrite Urine UA NEGATIVE (Negative); Occult Blood Urine UA 3+ (Negative); Protein Urine UA 2+ (Negative); Urobilinogen Urine UA 0.2 E.U./dL (0.2); pH Urine UA 8.5 (4.5-8.0)
[2021-07-01 11:00] LABS: Bacteria Urine Many (>30); Culture Indicated Urine Specimen Cultured; RBC Urine 30-100/HPF (0-5/HPF); Squamous Epithelial Cell Urine None Seen (0-5/HPF); WBC Urine 30-100/HPF (0-5/HPF)
== END ==
PROVIDERS: PCP Internal Medicine; Visit Provider Specialist
DX: R33.9 Retention of urine, unspecified (principal); R30.9 Painful micturition, unspecified
CPT/HCPCS: 81001; 87077; 87086; 87186

== ENCOUNTER → 2021-07-03 11:23 | Outpatient (ROUT) | payer MEDICARE, MEDICAID, SELFPAY ==
[2021-01-12 16:50] VITALS: BMI 35.5
[2021-07-03 11:29] LABS: Add Manual Diff / Slide Review NO; Basophils Absolute Auto 0 /uL (0-100); Basophils Percent Auto 0.3 % (0-2); Eosinophils Absolute Auto 100 /uL (0-450); Eosinophils Percent Auto 0.6 % (2-4); Lymphocytes Absolute Auto 1100 /uL (1100-4500); Lymphocytes Percent Auto 8.1 % (25-40); Mean Corpuscular HGB Conc 32.4 % (30-36); Mean Corpuscular Hemoglobin 27.5 PG (26-34); Monocytes Absolute Auto 900 /uL (0-900); Monocytes Percent Auto 6.8 % (3-14); Neutrophils Absolute Auto 11500 /uL (1500-7000); Neutrophils Percent Auto 84.2 % (50-75); Platelet Count 269 X10^3/uL (150-400); Red Cell Distribution Width 16.3 % (11.6-14.8); White Blood Cell Count 13.6 X10^3/uL (4.5-11.0)
[2021-07-03 12:07] LABS: BUN Creatinine Ratio 21.1 (6-22); Blood Urea Nitrogen 55 mg/dL (9-20); Calcium 9.1 mg/dL (8.4-10.2); Carbon Dioxide 31 mmol/L (22-32); Chloride 103 mmol/L (98-107); Estimated Glomerular Filt Rate 25.1 mL/min (>60); Glucose 152 mg/dL (80-110); HEMOLYSIS < 15 (0-50); Potassium 3.6 mmol/L (3.4-5.1); Sodium 142 mmol/L (137-145)
== END ==
PROVIDERS: PCP Internal Medicine; Visit Provider Nurse Practitioner Gerontology
DX: R11.2 Nausea with vomiting, unspecified (principal)
CPT/HCPCS: 80048; 85025

== ENCOUNTER 2021-07-03 14:56 | Emergency (ER) | payer MEDICARE, MEDICAID, SELFPAY ==
[2021-01-12 16:50] VITALS: BMI 35.5
[2021-07-03] VITALS (7 sets, daily range): BP systolic 106–142; BP diastolic 67–73; PULSE 87–96; O2SAT 94–96; BMI 29.7
--- NOTE | 2021-07-03 15:18 | ED.GENADULT ---
HPI - General Adult General Chief complaint: Recheck/Abnormal Lab/Rx Stated complaint: Kidney Failure Time Seen by Provider: 07/03/21 15:04 Source: patient Mode of arrival: EMS Limitations: no limitations History of Present Illness HPI narrative: Patient is a 60-year-old male. History of MS. Is not ambulatory. Has an indwelling Hightower catheter. Was sent over for concern over worsening kidney function in the concern of a urinary tract infection and concern the patient may need dialysis. He states that he is at his baseline state health. No abdominal pain. No vomiting. No fevers. He states he is currently not on a antibiotics. No change in his baseline neurologic status Related Data Home Medications Medication Instructions Recorded Confirmed acetaminophen 325 mg capsule 650 mg PO Q4H PRN 12/30/20 05/10/21 aspirin 81 mg tablet 81 mg PO QAM 12/30/20 05/10/21 bismuth subsalicylate 262 mg/15 mL 524 mg PO Q4HR PRN 12/30/20 05/10/21 oral suspension (Pepto-Bismol) chlorhexidine gluconate 2 % See Rx Instructions .ROUTE .COMPLEX 12/30/20 05/10/21 topical liquid docusate sodium 100 mg capsule 200 mg PO QAM 12/30/20 05/10/21 ferrous sulfate 325 mg (65 mg 325 mg PO QAM 12/30/20 05/10/21 iron) capsule,extended release pantoprazole 40 mg tablet,delayed 40 mg PO QAM 12/30/20 05/10/21 release atorvastatin 20 mg tablet 20 mg PO BEDTIME tab 04/12/21 05/10/21 epoetin erasto 10,000 unit/mL 10,000 unit SUBCUT QWEEK ml 04/12/21 05/10/21 injection solution insulin glargine 100 unit/mL (3 30 unit SUBCUT QPM ml 04/12/21 05/10/21 mL) subcutaneous pen (Lantus Solostar U-100 Insulin) lidocaine HCl 4 % topical cream 1 applic TOPICAL TID PRN 04/12/21 05/10/21 (Aspercreme (lidocaine HCl)) nystatin 100,000 unit/gram topical 1 applic TOPICAL BID PRN 04/12/21 05/10/21 ointment tamsulosin 0.4 mg capsule 0.8 mg PO BEDTIME cap 04/12/21 05/10/21 torsemide 20 mg tablet 20 mg PO DAILY 04/12/21 05/10/21 hydrocodone 5 mg-acetaminophen 325 1 - 2 tab PO Q6H PRN tab 05/10/21 05/10/21 mg tablet loperamide 2 mg capsule 2 mg PO BID PRN cap 05/10/21 05/10/21 polyethylene glycol 3350 17 gram 17 g PO QAM 05/10/21 05/10/21 oral powder packet sodium polystyrene sulfonate 15 g PO Q OTHER DAY g 05/10/21 05/10/21 oxybutynin chloride 15 mg 15 mg PO DAILY 07/03/21 tablet,extended release 24 hr Previous Rx's Medication Instructions Recorded sulfamethoxazole 400 1 tab PO BID 3 Days #6 tab 07/03/21 mg-trimethoprim 80 mg tablet (Bactrim) Allergies Allergy/AdvReac Type Severity Reaction Status Date / Time No Known Drug Allergies Allergy Verified 05/10/21 14:51 Review of Systems Constitutional Constitutional: Denies fever(s) Gastrointestinal Gastrointestinal: Denies abdominal pain and Denies vomiting Genitourinary Genitourinary: Reports system reviewed and no additional complaints, except as documented and Reports as per HPI Neurologic Neurologic: Reports system reviewed and no additional complaints, except as documented and Reports as per HPI Hematologic/Lymphatic On Anticoagulants: No Patient History Medical History Chronic anemia Chronic kidney disease Chronic kidney disease, stage IV (severe) History of neurogenic bladder Hyperlipidemia Hypertension Multiple sclerosis Neurogenic bladder Recurrent UTI (urinary tract infection) Stroke Type 2 diabetes mellitus Surgical History History of circumcision History of knee replacement Hx of hernia repair Family History Grandfather Coronary artery disease Brother Hyperlipidemia Hypertension Social History marital status: unmarried,single number of children: 1 household members: caregiver Smoking Status: Former smoker alcohol intake: former substance use type: does not use Smoking Status: Former smoker alcohol intake frequency: 0-2 drinks per day Substance Use Type: does not use Exam Initial Vital Signs Initial Vital Signs: Vital Signs Pulse Rate 95 H 07/03/21 15:01 Pulse Oximetry 94 07/03/21 15:01 [facility] Head: normal to inspection Resp Effort & Inspection: normal respiratory effort Cardio Rate: regular rate GI Inspection: normal to inspection Palpation: soft and No tender Neuro General: patient alert, patient awake and patient oriented x3 Cognition: normal cognition Speech: speech normal Psych Appearance: grossly normal Course Orders Ordered: Discontinued Medications Trimethoprim/Sulfamethoxazole (Trimeth/Sulfa 160/800 (Ds) Tablet) 1 tab PO NOW ONE Stop: 07/03/21 15:19 Last Admin: 07/03/21 16:18 Dose: 1 tab Documented by: JENNIFER Vital Signs Vital signs: Vital Signs - 8 hr 07/03/21 15:01 07/03/21 15:07 07/03/21 15:30 Pulse Rate 95 H 95 H 88 Blood Pressure 106/67 114/70 Pulse Oximetry 94 95 94 07/03/21 16:00 07/03/21 16:30 07/03/21 17:00 Pulse Rate 92 H 92 H 87 Blood Pressure 114/69 142/69 H 130/67 Pulse Oximetry 96 94 96 07/03/21 17:30 Pulse Rate 96 H Blood Pressure 134/73 Pulse Oximetry 96 Medical Decision Making MDM Narrative Medical decision making narrative: No labs were performed during this visit. He had labs performed earlier today. Patient had a BUN of 55 and a creatinine of 2.6. Approximately 20 days ago he had a BUN of 45 and a creatinine of 2.4. Also review of his microbiology shows that he had a urine culture from 2-3 days ago which showed Enterobacter. Did have some resistance. It is susceptible to Bactrim. He was given 1 double-strength Bactrim here given his kidney function we will decrease the dose to 1 single strength. There is no indication for dialysis. The rest of his electrolytes are unremarkable to include his potassium. No indication for admission to the hospital. He stated that he did have his Hightower catheter changed yesterday. Will discharge back to his facility. He was given return precautions. He expressed understanding and agreement Discharge Plan Departure Patient Disposition: Home Clinical Impression: Urinary tract infection Instructions: DI for Urinary Tract Infection (UTI) Activity Restrictions/Additional Instructions: Your kidney function today is not a level that would require dialysis especially given your presentation in your other electrolyte findings. The urine culture from a couple days ago does show findings that are consistent with an infection. We do need to put you on antibiotics. You were given a 1st dose here in the ER. Your next dose will be this evening. Please taking as directed. Keep all of your scheduled medical appointments. Return to the emergency department for any new or worsening symptoms. Prescriptions: New sulfamethoxazole-trimethoprim [Bactrim] 400-80 mg tablet 1 tab PO BID 3 Days Qty: 6 0RF No Action oxybutynin chloride 15 mg tablet extended release 24 hr 15 mg PO DAILY 0RF epoetin erasto 10,000 unit/mL solution 10,000 unit SUBCUT QWEEK 0RF torsemide 20 mg tablet 20 mg PO DAILY 0RF lidocaine HCl [Aspercreme (lidocaine HCl)] 4 % cream 1 applic topical TID PRN0RF nystatin 100,000 unit/gram ointment 1 applic topical BID PRN0RF pantoprazole 40 mg Tablet,Delayed Release (Dr/Ec) 40 mg PO QAM 0RF bismuth subsalicylate [Pepto-Bismol] 262 mg/15 mL Suspension 524 mg PO Q4HR PRN (Reason: loose stools / upset stomach) 0RF chlorhexidine gluconate 2 % Liquid See Rx Instructions .ROUTE .COMPLEX 0RF Rx Instructions: 1 applic topically in the morning every e, Sat, Sat docusate sodium 100 mg Capsule 200 mg PO QAM 0RF aspirin 81 mg Tablet 81 mg PO QAM 0RF ferrous sulfate 325 mg (65 mg iron) Capsule, Extended Release 325 mg PO QAM 0RF acetaminophen 325 mg Capsule 650 mg PO Q4H PRN (Reason: fever/pain) 0RF tamsulosin 0.4 mg capsule 0.8 mg PO BEDTIME 0RF atorvastatin 20 mg tablet 20 mg PO BEDTIME 0RF Lantus Solostar U-100 Insulin 100 unit/mL (3 mL) insulin pen 30 unit SUBCUT QPM 0RF loperamide 2 mg capsule 2 mg PO BID PRN (Reason: Diarrhea) 0RF hydrocodone-acetaminophen 5-325 mg tablet 1 - 2 tab PO Q6H PRN (Reason: Pain (Scale Score 7-10)) 0RF polyethylene glycol 3350 17 gram powder in packet 17 g PO QAM 0RF sodium polystyrene sulfonate Powder 15 g PO Q OTHER DAY 0RF Referrals: Keeley Michel MD [Primary Care Provider] -
[2021-07-03] MEDS: TRIMETH/SULFA 160/800 (DS) TABLET 1 TAB PO (16:18)
--- NOTE | 2021-07-03 17:38 | PC.NURSE ---
pt had a uti noted a few days ago and today dr. hernandez treated with antibiotics.
== END 2021-07-03 17:40 | disposition home or self-care (01) ==
PROVIDERS: Emergency Provider Emergency Medicine; PCP Internal Medicine
DX: N39.0 Urinary tract infection, site not specified (principal); R11.2 Nausea with vomiting, unspecified
CPT/HCPCS: 36415; 80048; 85025; 99283

== ENCOUNTER → 2021-07-06 15:48 | Outpatient (CLI) | payer MEDICARE, MEDICAID, SELFPAY ==
[2021-01-12 16:50] VITALS: BMI 35.5
[2021-07-06 16:46] LABS: Add Manual Diff / Slide Review NO; Basophils Absolute Auto 100 /uL (0-100); Basophils Percent Auto 0.9 % (0-2); Eosinophils Absolute Auto 600 /uL (0-450); Eosinophils Percent Auto 4.9 % (2-4); Hematocrit 39.4 % (41-53); Lymphocytes Absolute Auto 2100 /uL (1100-4500); Lymphocytes Percent Auto 16.3 % (25-40); Mean Corpuscular Hemoglobin 28.2 PG (26-34); Mean Corpuscular Volume 85.5 fL (80-100); Monocytes Absolute Auto 1000 /uL (0-900); Monocytes Percent Auto 7.8 % (3-14); Neutrophils Absolute Auto 9000 /uL (1500-7000); Neutrophils Percent Auto 70.1 % (50-75); Platelet Count 255 X10^3/uL (150-400); Red Blood Cell Count 4.61 X10^6/uL (4.5-5.9); Red Cell Distribution Width 15.9 % (11.6-14.8); White Blood Cell Count 12.8 X10^3/uL (4.5-11.0)
[2021-07-06 16:59] LABS: BUN Creatinine Ratio 17.9 (6-22); Blood Urea Nitrogen 47 mg/dL (9-20); Carbon Dioxide 32 mmol/L (22-32); Chloride 100 mmol/L (98-107); Glucose 172 mg/dL (80-110); HEMOLYSIS 18 (0-50); Potassium 3.8 mmol/L (3.4-5.1); Sodium 138 mmol/L (137-145)
== END ==
PROVIDERS: PCP Internal Medicine; Referring Provider Internal Medicine; Visit Provider Internal Medicine
DX: N18.9 Chronic kidney disease, unspecified (principal); N39.0 Urinary tract infection, site not specified
CPT/HCPCS: 36415; 80048; 85025

== ENCOUNTER → 2021-07-11 07:55 | Outpatient (ROUT) | payer MEDICARE, MEDICAID, SELFPAY ==
[2021-01-12 16:50] VITALS: BMI 35.5
[2021-07-11 08:55] LABS: Add Manual Diff / Slide Review NO; Basophils Absolute Auto 100 /uL (0-100); Eosinophils Absolute Auto 900 /uL (0-450); Hematocrit 34.4 % (41-53); Hemoglobin 11.4 g/dL (13.5-17.5); Lymphocytes Absolute Auto 2000 /uL (1100-4500); Mean Corpuscular HGB Conc 33.2 % (30-36); Mean Corpuscular Hemoglobin 28.2 PG (26-34); Monocytes Absolute Auto 900 /uL (0-900); Monocytes Percent Auto 7.9 % (3-14); Neutrophils Absolute Auto 7700 /uL (1500-7000); Neutrophils Percent Auto 66.1 % (50-75); Platelet Count 339 X10^3/uL (150-400); Red Blood Cell Count 4.04 X10^6/uL (4.5-5.9); White Blood Cell Count 11.7 X10^3/uL (4.5-11.0)
[2021-07-11 09:25] LABS: Albumin 3.2 g/dL (3.5-5.0); BUN Creatinine Ratio 15.4 (6-22); Blood Urea Nitrogen 42 mg/dL (9-20); Calcium 8.2 mg/dL (8.4-10.2); Carbon Dioxide 28 mmol/L (22-32); Chloride 106 mmol/L (98-107); Estimated Glomerular Filt Rate 23.9 mL/min (>60); Glucose 121 mg/dL (80-110); HEMOLYSIS < 15 (0-50); Magnesium 2.3 mg/dL (1.6-2.3); Phosphorous 3.1 mg/dL (2.3-3.7); Potassium 3.5 mmol/L (3.4-5.1); Sodium 138 mmol/L (137-145)
== END ==
PROVIDERS: PCP Internal Medicine; Visit Provider Internal Medicine
DX: N18.4 Chronic kidney disease, stage 4 (severe) (principal)
CPT/HCPCS: 36415; 80069; 83735; 85025

== ENCOUNTER → 2021-07-25 07:54 | Outpatient (ROUT) | payer MEDICARE, MEDICAID, SELFPAY ==
[2021-01-12 16:50] VITALS: BMI 35.5
[2021-07-25 09:02] LABS: Add Manual Diff / Slide Review NO; Basophils Absolute Auto 100 /uL (0-100); Basophils Percent Auto 0.9 % (0-2); Eosinophils Absolute Auto 900 /uL (0-450); Eosinophils Percent Auto 11.9 % (2-4); Hematocrit 32.1 % (41-53); Hemoglobin 10.9 g/dL (13.5-17.5); Lymphocytes Absolute Auto 1500 /uL (1100-4500); Lymphocytes Percent Auto 19.1 % (25-40); Mean Corpuscular Hemoglobin 29.5 PG (26-34); Mean Corpuscular Volume 86.9 fL (80-100); Monocytes Absolute Auto 600 /uL (0-900); Monocytes Percent Auto 8.3 % (3-14); Neutrophils Absolute Auto 4700 /uL (1500-7000); Neutrophils Percent Auto 59.8 % (50-75); Platelet Count 244 X10^3/uL (150-400); Red Cell Distribution Width 15.7 % (11.6-14.8); White Blood Cell Count 7.8 X10^3/uL (4.5-11.0)
== END ==
PROVIDERS: PCP Internal Medicine; Visit Provider Internal Medicine Nephrology
DX: N18.9 Chronic kidney disease, unspecified (principal); D64.9 Anemia, unspecified
CPT/HCPCS: 36415; 85025

== ENCOUNTER 2021-08-06 05:42 | Emergency (ER) | payer MEDICARE, MEDICAID, SELFPAY ==
[2021-01-12 16:50] VITALS: BMI 35.5
[2021-08-06 05:46] VITALS: BP 150/72; PULSE 87; RESP 18; TEMP 36.3; O2SAT 99; BMI 32.7
--- NOTE | 2021-08-06 05:47 | ED.MALEGU ---
HPI - Male Genitourinary General Chief complaint: Urogenital-Male Stated complaint: cath out Time Seen by Provider: 08/06/21 05:47 History of Present Illness HPI Narrative: 60-year-old male former smoker with history of prior stroke, neurogenic bladder, type 2 diabetes, hypertension, chronic kidney disease presents by EMS for evaluation of a catheter problem. He had been in his normal state of health and somehow throughout the evening his Hightower catheter became dislodged. He denies any pain and has no fever or chills. He was sent here for evaluation and replacement of the catheter Related Data Home Medications Medication Instructions Recorded Confirmed acetaminophen 325 mg capsule 650 mg PO Q4H PRN 12/30/20 05/10/21 aspirin 81 mg tablet 81 mg PO QAM 12/30/20 05/10/21 bismuth subsalicylate 262 mg/15 mL 524 mg PO Q4HR PRN 12/30/20 05/10/21 oral suspension (Pepto-Bismol) chlorhexidine gluconate 2 % See Rx Instructions .ROUTE .COMPLEX 12/30/20 05/10/21 topical liquid docusate sodium 100 mg capsule 200 mg PO QAM 12/30/20 05/10/21 ferrous sulfate 325 mg (65 mg 325 mg PO QAM 12/30/20 05/10/21 iron) capsule,extended release pantoprazole 40 mg tablet,delayed 40 mg PO QAM 12/30/20 05/10/21 release atorvastatin 20 mg tablet 20 mg PO BEDTIME tab 04/12/21 05/10/21 epoetin erasto 10,000 unit/mL 10,000 unit SUBCUT QWEEK ml 04/12/21 05/10/21 injection solution insulin glargine 100 unit/mL (3 30 unit SUBCUT QPM ml 04/12/21 05/10/21 mL) subcutaneous pen (Lantus Solostar U-100 Insulin) lidocaine HCl 4 % topical cream 1 applic TOPICAL TID PRN 04/12/21 05/10/21 (Aspercreme (lidocaine HCl)) nystatin 100,000 unit/gram topical 1 applic TOPICAL BID PRN 04/12/21 05/10/21 ointment tamsulosin 0.4 mg capsule 0.8 mg PO BEDTIME cap 04/12/21 05/10/21 torsemide 20 mg tablet 20 mg PO DAILY 04/12/21 05/10/21 hydrocodone 5 mg-acetaminophen 325 1 - 2 tab PO Q6H PRN tab 05/10/21 05/10/21 mg tablet loperamide 2 mg capsule 2 mg PO BID PRN cap 05/10/21 05/10/21 polyethylene glycol 3350 17 gram 17 g PO QAM 05/10/21 05/10/21 oral powder packet sodium polystyrene sulfonate 15 g PO Q OTHER DAY g 05/10/21 05/10/21 oxybutynin chloride 15 mg 15 mg PO DAILY 07/03/21 tablet,extended release 24 hr Previous Rx's Medication Instructions Recorded cefpodoxime 200 mg tablet 200 mg PO BID 10 Days #20 tab 08/06/21 Allergies Allergy/AdvReac Type Severity Reaction Status Date / Time No Known Drug Allergies Allergy Verified 05/10/21 14:51 Review of Systems Review of Systems Narrative: GENERAL: Denies chills, fatigue, malaise, fever, sweats. HEENT: Denies sinus pain, ear pain, sore throat, difficulty swallowing, dizziness. RESPIRATORY: Denies dyspnea, cough, wheezing, hemoptysis, sputum. CARDIOVASCULAR: Denies chest pain, palpitations, orthopnea, edema, GASTROINTESTINAL: Denies nausea, vomiting, abdominal pain, diarrhea, constipation, melena. : See HPI MUSCULOSKELETAL: denies weakness, joint pain, or bony pain SKIN: Denies rash, skin lesions, or other NEUROLOGIC: Denies weakness, headache, numbness, change in speech, confusion, seizures, incoordination. PSYCHIATRIC: No concerning psychosocial issues. 12 point review of systems is negative except for those stated above Patient History Medical History Chronic anemia Chronic kidney disease Chronic kidney disease, stage IV (severe) History of neurogenic bladder Hyperlipidemia Hypertension Multiple sclerosis Neurogenic bladder Recurrent UTI (urinary tract infection) Stroke Type 2 diabetes mellitus Surgical History History of circumcision History of knee replacement Hx of hernia repair Family History Grandfather Coronary artery disease Brother Hyperlipidemia Hypertension Social History marital status: unmarried,single number of children: 1 household members: caregiver Smoking Status: Former smoker alcohol intake: former substance use type: does not use Smoking Status: Former smoker alcohol intake frequency: 0-2 drinks per day Substance Use Type: does not use Exam Narrative Exam Narrative: GEN: AOx3 and in mild distress EYES: Pupils are equal, round, and reactive to light and accommodation. Extraoccular muscles are intact bilaterally. There is no subconjunctival hemorrhage or exudate. CHEST: Lungs are clear to auscultation bilaterally and free of wheezes, rales, or rhonchi. Heart rate is regular rhythm, there are no murmurs, clicks, rubs, or gallops. There is no chest wall tenderness. ABD: Abdomen is soft and nontender. There is no guarding or rebound. Bowel sounds are normal in all 4 quadrants. There is no mass or organomegaly. EXT: Full painless ROM of all extremities with no loss of sensation or strength. SKIN: Warm, pink, and dry. No erythema or rash Initial Vital Signs Initial Vital Signs: Vital Signs Temperature 97.3 F L 08/06/21 05:46 Pulse Rate 87 08/06/21 05:46 Respiratory Rate 18 08/06/21 05:46 Blood Pressure 150/72 H 08/06/21 05:46 Pulse Oximetry 99 08/06/21 05:46 Course Course Course Narrative: Nursing has replaced Hightower catheter to bedside without difficulty Orders Ordered: Discontinued Medications Lidocaine HCl (Lidocaine 2% (Glydo) 6 Ml Gel) 6 ml TOP NOW ONE Stop: 08/06/21 05:55 Last Admin: 08/06/21 06:00 Dose: 6 ml Documented by: JOHNNIE Vital Signs Vital signs: Vital Signs - 8 hr 08/06/21 05:46 Temperature 97.3 F L Pulse Rate 87 Respiratory Rate 18 Blood Pressure 150/72 H Pulse Oximetry 99 MDM - Male Genitourinary Lab Data Labs: Lab Results 08/06/21 Range/Units 06:10 Urine RBC 0-1/hpf D (0-5/HPF) Urine WBC 10-30/hpf H (0-5/HPF) Ur Squamous Epith Cells None seen (0-5/HPF) Urine Bacteria Few (2-10) H (None) Ur Culture Indicated? Culture not indicate Urine Dip Bedside Urine Glucose Negative Bedside Urine Bilirubin - Negative Bedside Urine Ketone - Negative Urine Specific [place] 1.010 Bedside Urine Occult Blood +/- Bedside Urine pH 7.5 Bedside Urine Protein +/- 15 Bedside Urine Urobilinogen - Negative Bedside Urine Nitrite - Negative Bedside Urine Leukocytes +++ 500 Esterase Discharge Plan Departure Patient Disposition: Home Clinical Impression: Complication of Hightower catheter, Acute UTI Instructions: How to Care for Your Hightower Catheter -- Male Activity Restrictions/Additional Instructions: *You have been diagnosed with [Hightower catheter replacement] *What to do: *Please continue to take your regular medications as directed. [x ] New medication prescriptions sent to your pharmacy: [ [facility]] [ ] New medication written as a paper prescription [ ] No new medications given *Please follow up with your primary care provider in 2-3 days, call for an appointment. Let them know you were seen in the Emergency Department and that we ask that you be seen in follow up. We will electronically transmit a record of today's note if your PCP is in our system *If you do not have a primary care provider please contact the [facility] Resource line at [phone]. They will ask some questions about your medical history and help get you set up with a doctor in the community. *Return to Emergency Department if you should have any new, worsening or concerning symptoms, such as [fever greater than 101 F, shaking chills, worsening pain, persistent vomiting or other bothersome symptoms] Prescriptions: New cefpodoxime 200 mg tablet 200 mg PO BID 10 Days Qty: 20 0RF Rx Instructions: must administer with a meal/food No Action oxybutynin chloride 15 mg tablet extended release 24 hr 15 mg PO DAILY 0RF epoetin erasto 10,000 unit/mL solution 10,000 unit SUBCUT QWEEK 0RF torsemide 20 mg tablet 20 mg PO DAILY 0RF lidocaine HCl [Aspercreme (lidocaine HCl)] 4 % cream 1 applic topical TID PRN0RF nystatin 100,000 unit/gram ointment 1 applic topical BID PRN0RF pantoprazole 40 mg Tablet,Delayed Release (Dr/Ec) 40 mg PO QAM 0RF bismuth subsalicylate [Pepto-Bismol] 262 mg/15 mL Suspension 524 mg PO Q4HR PRN (Reason: loose stools / upset stomach) 0RF chlorhexidine gluconate 2 % Liquid See Rx Instructions .ROUTE .COMPLEX 0RF Rx Instructions: 1 applic topically in the morning every e, Tracey, Sat docusate sodium 100 mg Capsule 200 mg PO QAM 0RF aspirin 81 mg Tablet 81 mg PO QAM 0RF ferrous sulfate 325 mg (65 mg iron) Capsule, Extended Release 325 mg PO QAM 0RF acetaminophen 325 mg Capsule 650 mg PO Q4H PRN (Reason: fever/pain) 0RF tamsulosin 0.4 mg capsule 0.8 mg PO BEDTIME 0RF atorvastatin 20 mg tablet 20 mg PO BEDTIME 0RF Lantus Solostar U-100 Insulin 100 unit/mL (3 mL) insulin pen 30 unit SUBCUT QPM 0RF loperamide 2 mg capsule 2 mg PO BID PRN (Reason: Diarrhea) 0RF hydrocodone-acetaminophen 5-325 mg tablet 1 - 2 tab PO Q6H PRN (Reason: Pain (Scale Score 7-10)) 0RF polyethylene glycol 3350 17 gram powder in packet 17 g PO QAM 0RF sodium polystyrene sulfonate Powder 15 g PO Q OTHER DAY 0RF Referrals: Keeley Michel MD [Primary Care Provider] -
[2021-08-06] MEDS: LIDOCAINE 2% (GLYDO) 6 ML GEL TOP (06:00)
--- NOTE | 2021-08-06 06:23 | PC.NURSE ---
Pt denies complaint. Urinary cath replaced; pt tolerated well. Urine noted to be slightly cloudy, Dr Veras notified and urine sent to lab.
[2021-08-06 07:02] LABS: RBC Urine 0-1/HPF (0-5/HPF); Squamous Epithelial Cell Urine None Seen (0-5/HPF); WBC Urine 10-30/HPF (0-5/HPF)
[2021-08-06 07:03] LABS: Bacteria Urine Few (2-10)
[2021-08-06 08:07] VITALS: BP 126/72; PULSE 104; RESP 16; O2SAT 97
== END 2021-08-06 08:13 | disposition home or self-care (01) ==
LOC: ED 05:56
PROVIDERS: Emergency Provider Emergency Medicine; PCP Internal Medicine
DX: T83.021A Displacement of indwelling urethral catheter, initial encounter (principal)
CPT/HCPCS: 51702; 81003; 81015; 87077; 87086; 87186; 99283

== ENCOUNTER → 2021-08-08 08:09 | Outpatient (ROUT) | payer MEDICARE, MEDICAID, SELFPAY ==
[2021-01-12 16:50] VITALS: BMI 35.5
[2021-08-08 08:51] LABS: Add Manual Diff / Slide Review NO; Basophils Absolute Auto 100 /uL (0-100); Basophils Percent Auto 0.8 % (0-2); Eosinophils Absolute Auto 1000 /uL (0-450); Eosinophils Percent Auto 11.6 % (2-4); Hematocrit 33.6 % (41-53); Hemoglobin 11.2 g/dL (13.5-17.5); Lymphocytes Absolute Auto 1500 /uL (1100-4500); Lymphocytes Percent Auto 17.3 % (25-40); Mean Corpuscular HGB Conc 33.2 % (30-36); Mean Corpuscular Hemoglobin 29.6 PG (26-34); Mean Corpuscular Volume 89.1 fL (80-100); Monocytes Absolute Auto 800 /uL (0-900); Monocytes Percent Auto 9.2 % (3-14); Neutrophils Absolute Auto 5400 /uL (1500-7000); Neutrophils Percent Auto 61.1 % (50-75); Platelet Count 270 X10^3/uL (150-400); Red Blood Cell Count 3.77 X10^6/uL (4.5-5.9); White Blood Cell Count 8.9 X10^3/uL (4.5-11.0)
[2021-08-08 09:18] LABS: Albumin 3.2 g/dL (3.5-5.0); BUN Creatinine Ratio 23.6 (6-22); Blood Urea Nitrogen 73 mg/dL (9-20); Calcium 8.4 mg/dL (8.4-10.2); Carbon Dioxide 24 mmol/L (22-32); Chloride 107 mmol/L (98-107); Estimated Glomerular Filt Rate 20.7 mL/min (>60); Glucose 107 mg/dL (80-110); HEMOLYSIS < 15 (0-50); Magnesium 2.2 mg/dL (1.6-2.3); Sodium 139 mmol/L (137-145)
== END ==
PROVIDERS: PCP Internal Medicine; Visit Provider Internal Medicine
DX: N18.4 Chronic kidney disease, stage 4 (severe) (principal)
CPT/HCPCS: 36415; 80069; 83735; 85025

== ENCOUNTER → 2021-08-22 07:48 | Outpatient (ROUT) | payer MEDICARE, MEDICAID, SELFPAY ==
[2021-01-12 16:50] VITALS: BMI 35.5
[2021-08-22 08:16] LABS: Hemoglobin 11.6 g/dL (13.5-17.5)
== END ==
PROVIDERS: PCP Internal Medicine; Visit Provider Internal Medicine
DX: N18.9 Chronic kidney disease, unspecified (principal)
CPT/HCPCS: 36415; 85014; 85018

== ENCOUNTER → 2021-09-05 19:08 | Outpatient (ROUT) | payer MEDICARE, MEDICAID, SELFPAY ==
[2021-01-12 16:50] VITALS: BMI 35.5
[2021-09-05 20:20] LABS: Appearance Urine UA Slightly Cloudy; Bilirubin Urine UA Negative (NEGATIVE); Color Urine UA YELLOW; Glucose Urine UA NEGATIVE (Negative); Ketones Urine UA NEGATIVE (NEGATIVE); Nitrite Urine UA NEGATIVE (Negative); Occult Blood Urine UA 2+ (Negative); Protein Urine UA TRACE (Negative)
[2021-09-05 20:21] LABS: Bacteria Urine Moderate (10-30); Culture Indicated Urine Specimen Cultured; Leukocyte Esterase Urine UA 3+ (NEGATIVE); RBC Urine 5-10/HPF (0-5/HPF); Urobilinogen Urine UA 0.2 E.U./dL (0.2); WBC Urine 30-100/HPF (0-5/HPF)
== END ==
PROVIDERS: PCP Internal Medicine; Visit Provider Internal Medicine
DX: N39.0 Urinary tract infection, site not specified (principal)
CPT/HCPCS: 81001; 87086

== ENCOUNTER → 2021-09-05 22:52 | Outpatient (ROUT) | payer MEDICARE, MEDICAID, SELFPAY ==
[2021-01-12 16:50] VITALS: BMI 35.5
[2021-09-05 23:05] LABS: Hematocrit 33.1 % (41-53); Hemoglobin 11.2 g/dL (13.5-17.5)
== END ==
PROVIDERS: PCP Internal Medicine; Visit Provider Internal Medicine
DX: N18.9 Chronic kidney disease, unspecified (principal); N39.0 Urinary tract infection, site not specified
CPT/HCPCS: 81001; 85014; 85018; 87077; 87086; 87186

== ENCOUNTER → 2021-09-19 08:09 | Outpatient (ROUT) | payer MEDICARE, MEDICAID, SELFPAY ==
[2021-01-12 16:50] VITALS: BMI 35.5
[2021-09-19 08:43] LABS: Add Manual Diff / Slide Review NO; Basophils Absolute Auto 100 /uL (0-100); Basophils Percent Auto 0.7 % (0-2); Eosinophils Absolute Auto 600 /uL (0-450); Eosinophils Percent Auto 5.7 % (2-4); Hematocrit 34.2 % (41-53); Hemoglobin 11.5 g/dL (13.5-17.5); Lymphocytes Absolute Auto 1300 /uL (1100-4500); Lymphocytes Percent Auto 12.9 % (25-40); Mean Corpuscular HGB Conc 33.7 % (30-36); Mean Corpuscular Hemoglobin 29.8 PG (26-34); Mean Corpuscular Volume 88.5 fL (80-100); Monocytes Absolute Auto 800 /uL (0-900); Monocytes Percent Auto 7.8 % (3-14); Neutrophils Absolute Auto 7500 /uL (1500-7000); Neutrophils Percent Auto 72.9 % (50-75); Platelet Count 291 X10^3/uL (150-400); Red Blood Cell Count 3.87 X10^6/uL (4.5-5.9); Red Cell Distribution Width 13.5 % (11.6-14.8); White Blood Cell Count 10.2 X10^3/uL (4.5-11.0)
== END ==
PROVIDERS: PCP Internal Medicine; Visit Provider Internal Medicine
DX: N18.9 Chronic kidney disease, unspecified (principal)
CPT/HCPCS: 36415; 85025

== ENCOUNTER → 2021-09-26 08:08 | Outpatient (ROUT) | payer MEDICARE, MEDICAID, SELFPAY ==
[2021-01-12 16:50] VITALS: BMI 35.5
[2021-09-26 08:45] LABS: BUN Creatinine Ratio 20.2 (6-22); Blood Urea Nitrogen 64 mg/dL (9-20); Calcium 8.4 mg/dL (8.4-10.2); Carbon Dioxide 25 mmol/L (22-32); Chloride 107 mmol/L (98-107); Estimated Glomerular Filt Rate 21 mL/min (>60); Glucose 111 mg/dL (80-110); HEMOLYSIS < 15 (0-50); Potassium 4.5 mmol/L (3.4-5.1); Sodium 138 mmol/L (137-145)
== END ==
PROVIDERS: PCP Internal Medicine; Visit Provider Nurse Practitioner Family
DX: N18.9 Chronic kidney disease, unspecified (principal)
CPT/HCPCS: 36415; 80048

== ENCOUNTER → 2021-10-03 08:12 | Outpatient (ROUT) | payer MEDICARE, MEDICAID, SELFPAY ==
[2021-01-12 16:50] VITALS: BMI 35.5
[2021-10-03 08:58] LABS: Albumin 3.3 g/dL (3.5-5.0); BUN Creatinine Ratio 23.7 (6-22); Blood Urea Nitrogen 79 mg/dL (9-20); Calcium 8.5 mg/dL (8.4-10.2); Carbon Dioxide 23 mmol/L (22-32); Chloride 106 mmol/L (98-107); Estimated Glomerular Filt Rate 20 mL/min (>60); Glucose 96 mg/dL (80-110); HEMOLYSIS < 15 (0-50); Magnesium 2.6 mg/dL (1.6-2.3); Phosphorous 3.8 mg/dL (2.3-3.7); Potassium 4.7 mmol/L (3.4-5.1); Sodium 138 mmol/L (137-145)
[2021-10-03 09:01] LABS: Add Manual Diff / Slide Review NO; Basophils Absolute Auto 100 /uL (0-100); Basophils Percent Auto 0.7 % (0-2); Eosinophils Absolute Auto 800 /uL (0-450); Eosinophils Percent Auto 8.3 % (2-4); Hematocrit 32.1 % (41-53); Hemoglobin 10.9 g/dL (13.5-17.5); Lymphocytes Absolute Auto 1500 /uL (1100-4500); Mean Corpuscular Hemoglobin 30.1 PG (26-34); Mean Corpuscular Volume 88.5 fL (80-100); Monocytes Absolute Auto 900 /uL (0-900); Neutrophils Absolute Auto 6200 /uL (1500-7000); Platelet Count 252 X10^3/uL (150-400); Red Blood Cell Count 3.63 X10^6/uL (4.5-5.9); Red Cell Distribution Width 13.6 % (11.6-14.8); White Blood Cell Count 9.4 X10^3/uL (4.5-11.0)
== END ==
PROVIDERS: PCP Internal Medicine; Visit Provider Internal Medicine
DX: N18.4 Chronic kidney disease, stage 4 (severe) (principal)
CPT/HCPCS: 36415; 80069; 83735; 85025

== ENCOUNTER → 2021-10-06 11:44 | Outpatient (ROUT) | payer MEDICARE, MEDICAID, SELFPAY ==
[2021-01-12 16:50] VITALS: BMI 35.5
[2021-10-06 12:11] LABS: Appearance Urine UA CLEAR; Bilirubin Urine UA NEGATIVE (NEGATIVE); Color Urine UA YELLOW; Glucose Urine UA NEGATIVE (Negative); Ketones Urine UA NEGATIVE (NEGATIVE); Leukocyte Esterase Urine UA 3+ (NEGATIVE); Nitrite Urine UA NEGATIVE (Negative); Occult Blood Urine UA TRACE-LYSED (Negative); Protein Urine UA NEGATIVE (Negative); Specific Gravity Urine UA <=1.005 (1.000-1.035); Urobilinogen Urine UA 0.2 E.U./dL (0.2)
[2021-10-06 12:23] LABS: Bacteria Urine Few (2-10); Culture Indicated Urine Specimen Cultured; RBC Urine 0-1/HPF (0-5/HPF); Squamous Epithelial Cell Urine None Seen (0-5/HPF); WBC Urine 5-10/HPF (0-5/HPF)
== END ==
PROVIDERS: PCP Internal Medicine; Visit Provider Internal Medicine
DX: N17.9 Acute kidney failure, unspecified (principal)
CPT/HCPCS: 81001; 87077; 87086; 87186

== ENCOUNTER → 2021-10-16 11:28 | Outpatient (CLI) | payer MEDICARE, MEDICAID, SELFPAY ==
[2021-01-12 16:50] VITALS: BMI 35.5
== END ==
PROVIDERS: PCP Internal Medicine; Referring Provider Internal Medicine; Visit Provider Family Medicine
DX: S31.819A Unspecified open wound of right buttock, initial encounter (principal); S31.829A Unspecified open wound of left buttock, initial encounter; R15.9 Full incontinence of feces; R32 Unspecified urinary incontinence; G35 Multiple sclerosis; E11.22 Type 2 diabetes mellitus with diabetic chronic kidney disease; I12.0 Hypertensive chronic kidney disease with stage 5 chronic kidney disease or end stage renal disease; N18.6 End stage renal disease; Z74.09 Other reduced mobility; Z79.4 Long term (current) use of insulin; Z99.3 Dependence on wheelchair
CPT/HCPCS: 99204; 99213

== ENCOUNTER → 2021-10-17 08:32 | Outpatient (ROUT) | payer MEDICARE, MEDICAID, SELFPAY ==
[2021-01-12 16:50] VITALS: BMI 35.5
[2021-10-17 11:49] LABS: Hemoglobin A1C% w Est Avg Glu 6.2 % (4.0-6.0)
== END ==
PROVIDERS: PCP Internal Medicine; Visit Provider Nurse Practitioner Gerontology
DX: E10.69 Type 1 diabetes mellitus with other specified complication (principal); N18.9 Chronic kidney disease, unspecified
CPT/HCPCS: 36415; 83036; 85014; 85018

== ENCOUNTER → 2021-10-23 10:55 | Outpatient (CLI) | payer MEDICARE, MEDICAID, SELFPAY ==
[2021-01-12 16:50] VITALS: BMI 35.5
== END ==
PROVIDERS: PCP Internal Medicine; Referring Provider Internal Medicine; Visit Provider Family Medicine
DX: L24.A2 Irritant contact dermatitis due to fecal, urinary or dual incontinence (principal); S31.819A Unspecified open wound of right buttock, initial encounter; S31.829A Unspecified open wound of left buttock, initial encounter; R15.9 Full incontinence of feces; K62.89 Other specified diseases of anus and rectum; G35 Multiple sclerosis; E11.22 Type 2 diabetes mellitus with diabetic chronic kidney disease; N18.6 End stage renal disease; Z74.09 Other reduced mobility; Z79.4 Long term (current) use of insulin
CPT/HCPCS: 97597

== ENCOUNTER → 2021-10-24 08:02 | Outpatient (ROUT) | payer MEDICARE, MEDICAID, SELFPAY ==
[2021-01-12 16:50] VITALS: BMI 35.5
[2021-10-24 08:47] LABS: BUN Creatinine Ratio 25.4 (6-22); Blood Urea Nitrogen 79 mg/dL (9-20); Calcium 8.6 mg/dL (8.4-10.2); Carbon Dioxide 24 mmol/L (22-32); Chloride 109 mmol/L (98-107); Estimated Glomerular Filt Rate 22 mL/min (>60); Glucose 106 mg/dL (80-110); HEMOLYSIS < 15 (0-50); Potassium 4.8 mmol/L (3.4-5.1); Sodium 140 mmol/L (137-145)
== END ==
PROVIDERS: PCP Internal Medicine; Visit Provider Nurse Practitioner Family
DX: N18.9 Chronic kidney disease, unspecified (principal)
CPT/HCPCS: 36415; 80048

== ENCOUNTER → 2021-10-31 08:26 | Outpatient (ROUT) | payer MEDICARE, MEDICAID, SELFPAY ==
[2021-01-12 16:50] VITALS: BMI 35.5
[2021-10-31 08:53] LABS: Add Manual Diff / Slide Review NO; Basophils Absolute Auto 100 /uL (0-100); Basophils Percent Auto 0.8 % (0-2); Eosinophils Absolute Auto 1000 /uL (0-450); Eosinophils Percent Auto 9.8 % (2-4); Hematocrit 35.9 % (41-53); Hemoglobin 11.9 g/dL (13.5-17.5); Lymphocytes Absolute Auto 1600 /uL (1100-4500); Lymphocytes Percent Auto 15.8 % (25-40); Mean Corpuscular HGB Conc 33.1 % (30-36); Mean Corpuscular Hemoglobin 29.6 PG (26-34); Mean Corpuscular Volume 89.5 fL (80-100); Monocytes Absolute Auto 800 /uL (0-900); Monocytes Percent Auto 8.3 % (3-14); Neutrophils Absolute Auto 6500 /uL (1500-7000); Neutrophils Percent Auto 65.3 % (50-75); Platelet Count 278 X10^3/uL (150-400); Red Blood Cell Count 4.01 X10^6/uL (4.5-5.9); Red Cell Distribution Width 13.6 % (11.6-14.8)
[2021-10-31 09:10] LABS: Albumin 3.5 g/dL (3.5-5.0); BUN Creatinine Ratio 22.3 (6-22); Blood Urea Nitrogen 81 mg/dL (9-20); Calcium 8.5 mg/dL (8.4-10.2); Carbon Dioxide 23 mmol/L (22-32); Chloride 105 mmol/L (98-107); Estimated Glomerular Filt Rate 18 mL/min (>60); Glucose 121 mg/dL (80-110); HEMOLYSIS < 15 (0-50); Magnesium 2.5 mg/dL (1.6-2.3); Phosphorous 4.9 mg/dL (2.3-3.7); Potassium 4.6 mmol/L (3.4-5.1); Sodium 138 mmol/L (137-145)
== END ==
PROVIDERS: PCP Internal Medicine; Visit Provider Internal Medicine
DX: N18.4 Chronic kidney disease, stage 4 (severe) (principal)
CPT/HCPCS: 36415; 80069; 83735; 85025

== ENCOUNTER → 2021-11-03 17:13 | Outpatient (ROUT) | payer MEDICARE, MEDICAID, SELFPAY ==
[2021-01-12 16:50] VITALS: BMI 35.5
[2021-11-03 18:16] LABS: Appearance Urine UA Slightly Cloudy; Bilirubin Urine UA NEGATIVE (NEGATIVE); Color Urine UA YELLOW; Glucose Urine UA NEGATIVE (Negative); Ketones Urine UA NEGATIVE (NEGATIVE); Leukocyte Esterase Urine UA 3+ (NEGATIVE); Nitrite Urine UA NEGATIVE (Negative); Occult Blood Urine UA 1+ (Negative); Protein Urine UA TRACE (Negative); Urobilinogen Urine UA 0.2 E.U./dL (0.2)
[2021-11-03 18:32] LABS: Amorphous Sediment Urine 1+; Bacteria Urine Few (2-10); Culture Indicated Urine Specimen Cultured; Mucus Urine 1+ (Negative); RBC Urine 0-1/HPF (0-5/HPF); Squamous Epithelial Cell Urine 0-1 /HPF (0-5/HPF); WBC Urine 10-30/HPF (0-5/HPF)
== END ==
PROVIDERS: PCP Internal Medicine; Visit Provider Internal Medicine
DX: R82.79 Other abnormal findings on microbiological examination of urine (principal)
CPT/HCPCS: 81001; 87077; 87086; 87186

== ENCOUNTER → 2021-11-06 09:54 | Outpatient (CLI) | payer MEDICARE, MEDICAID, SELFPAY ==
[2021-01-12 16:50] VITALS: BMI 35.5
== END ==
PROVIDERS: PCP Internal Medicine; Referring Provider Internal Medicine; Visit Provider Family Medicine
DX: L24.A2 Irritant contact dermatitis due to fecal, urinary or dual incontinence (principal); S31.819A Unspecified open wound of right buttock, initial encounter; R15.9 Full incontinence of feces; K62.89 Other specified diseases of anus and rectum; G35 Multiple sclerosis; E11.22 Type 2 diabetes mellitus with diabetic chronic kidney disease; N18.6 End stage renal disease; Z74.09 Other reduced mobility
CPT/HCPCS: 99212; 99213

== ENCOUNTER → 2021-11-14 09:52 | Outpatient (CLI) | payer MEDICARE, MEDICAID, SELFPAY ==
[2021-01-12 16:50] VITALS: BMI 35.5
== END ==
PROVIDERS: PCP Internal Medicine; Referring Provider Internal Medicine; Visit Provider Family Medicine
DX: L24.A2 Irritant contact dermatitis due to fecal, urinary or dual incontinence (principal); S31.819A Unspecified open wound of right buttock, initial encounter; S31.829A Unspecified open wound of left buttock, initial encounter; R15.9 Full incontinence of feces; K62.89 Other specified diseases of anus and rectum; G35 Multiple sclerosis; E11.22 Type 2 diabetes mellitus with diabetic chronic kidney disease; N18.6 End stage renal disease; Z74.09 Other reduced mobility
CPT/HCPCS: 99213

== ENCOUNTER → 2021-11-15 07:46 | Outpatient (ROUT) | payer MEDICARE, MEDICAID, SELFPAY ==
[2021-01-12 16:50] VITALS: BMI 35.5
[2021-11-15 08:51] LABS: Add Manual Diff / Slide Review NO; Basophils Absolute Auto 100 /uL (0-100); Basophils Percent Auto 1.2 % (0-2); Eosinophils Absolute Auto 1000 /uL (0-450); Eosinophils Percent Auto 9.7 % (2-4); Hematocrit 35.8 % (41-53); Hemoglobin 11.9 g/dL (13.5-17.5); Lymphocytes Absolute Auto 1800 /uL (1100-4500); Lymphocytes Percent Auto 18.2 % (25-40); Mean Corpuscular HGB Conc 33.3 % (30-36); Mean Corpuscular Hemoglobin 29.6 PG (26-34); Mean Corpuscular Volume 88.9 fL (80-100); Monocytes Absolute Auto 600 /uL (0-900); Neutrophils Absolute Auto 6500 /uL (1500-7000); Neutrophils Percent Auto 64.9 % (50-75); Platelet Count 290 X10^3/uL (150-400); Red Blood Cell Count 4.03 X10^6/uL (4.5-5.9); Red Cell Distribution Width 13.6 % (11.6-14.8); White Blood Cell Count 10.1 X10^3/uL (4.5-11.0)
[2021-11-15 09:15] LABS: Calcium 8.3 mg/dL (8.4-10.2); Carbon Dioxide 24 mmol/L (22-32); Chloride 104 mmol/L (98-107); Glucose 172 mg/dL (80-110); HEMOLYSIS < 15 (0-50); Magnesium 2.7 mg/dL (1.6-2.3); Phosphorous 5.8 mg/dL (2.3-3.7); Potassium 4.4 mmol/L (3.4-5.1); Sodium 139 mmol/L (137-145)
[2021-11-15 09:24] LABS: BUN Creatinine Ratio 27.8 (6-22); Estimated Glomerular Filt Rate 16 mL/min (>60)
[2021-11-15 09:32] LABS: Blood Urea Nitrogen 110 mg/dL (9-20)
== END ==
PROVIDERS: PCP Internal Medicine; Visit Provider Internal Medicine
DX: N18.9 Chronic kidney disease, unspecified (principal)
CPT/HCPCS: 36415; 80048; 83735; 84100; 85025

== ENCOUNTER → 2021-11-21 10:01 | Outpatient (CLI) | payer MEDICARE, MEDICAID, SELFPAY ==
[2021-01-12 16:50] VITALS: BMI 35.5
== END ==
PROVIDERS: PCP Internal Medicine; Referring Provider Internal Medicine; Visit Provider Family Medicine
DX: L24.A2 Irritant contact dermatitis due to fecal, urinary or dual incontinence (principal); S31.819A Unspecified open wound of right buttock, initial encounter; S31.829A Unspecified open wound of left buttock, initial encounter; R15.9 Full incontinence of feces; K62.89 Other specified diseases of anus and rectum; G35 Multiple sclerosis; E11.22 Type 2 diabetes mellitus with diabetic chronic kidney disease; N18.6 End stage renal disease; Z74.09 Other reduced mobility; Z79.4 Long term (current) use of insulin
CPT/HCPCS: 99212; 99214

== ENCOUNTER → 2021-11-28 08:11 | Outpatient (ROUT) | payer MEDICARE, MEDICAID, SELFPAY ==
[2021-01-12 16:50] VITALS: BMI 35.5
[2021-11-28 09:05] LABS: Hematocrit 33.8 % (41-53); Hemoglobin 11.7 g/dL (13.5-17.5)
== END ==
PROVIDERS: PCP Internal Medicine; Visit Provider Internal Medicine
DX: N18.9 Chronic kidney disease, unspecified (principal)
CPT/HCPCS: 36415; 85014; 85018

== ENCOUNTER → 2021-12-01 18:11 | Outpatient (ROUT) | payer MEDICARE, MEDICAID, SELFPAY ==
[2021-01-12 16:50] VITALS: BMI 35.5
[2021-12-01 18:18] LABS: Appearance Urine UA SL CLOUDY; Bilirubin Urine UA NEGATIVE (NEGATIVE); Color Urine UA YELLOW; Glucose Urine UA NEGATIVE (Negative); Ketones Urine UA NEGATIVE (NEGATIVE); Leukocyte Esterase Urine UA 3+ (NEGATIVE); Nitrite Urine UA NEGATIVE (Negative); Occult Blood Urine UA 3+ (Negative); Protein Urine UA 1+ (Negative); Urobilinogen Urine UA 0.2 E.U./dL (0.2)
[2021-12-01 18:25] LABS: Amorphous Sediment Urine 1+; Bacteria Urine Moderate (10-30); Culture Indicated Urine Specimen Cultured; RBC Urine 5-10/HPF (0-5/HPF); Squamous Epithelial Cell Urine 0-1 /HPF (0-5/HPF); WBC Urine 30-100/HPF (0-5/HPF)
== END ==
PROVIDERS: PCP Internal Medicine; Visit Provider Nurse Practitioner Family
DX: N39.0 Urinary tract infection, site not specified (principal)
CPT/HCPCS: 81001; 87077; 87086; 87186

== ENCOUNTER → 2021-12-12 07:59 | Outpatient (ROUT) | payer MEDICARE, MEDICAID, SELFPAY ==
[2021-01-12 16:50] VITALS: BMI 35.5
[2021-12-12 09:34] LABS: Add Manual Diff / Slide Review NO; Basophils Absolute Auto 400 /uL (0-100); Basophils Percent Auto 3.4 % (0-2); Eosinophils Absolute Auto 1000 /uL (0-450); Eosinophils Percent Auto 9.7 % (2-4); Hematocrit 35.3 % (41-53); Hemoglobin 11.9 g/dL (13.5-17.5); Lymphocytes Absolute Auto 1200 /uL (1100-4500); Lymphocytes Percent Auto 11.4 % (25-40); Mean Corpuscular HGB Conc 33.6 % (30-36); Mean Corpuscular Hemoglobin 29.9 PG (26-34); Monocytes Absolute Auto 700 /uL (0-900); Monocytes Percent Auto 6.6 % (3-14); Neutrophils Absolute Auto 7400 /uL (1500-7000); Neutrophils Percent Auto 68.9 % (50-75); Platelet Count 294 X10^3/uL (150-400); Red Blood Cell Count 3.97 X10^6/uL (4.5-5.9); Red Cell Distribution Width 13.1 % (11.6-14.8); White Blood Cell Count 10.7 X10^3/uL (4.5-11.0)
== END ==
PROVIDERS: PCP Internal Medicine; Visit Provider Internal Medicine
DX: N18.9 Chronic kidney disease, unspecified (principal)
CPT/HCPCS: 36415; 85025

== ENCOUNTER → 2021-12-19 07:40 | Outpatient (ROUT) | payer MEDICARE, MEDICAID, SELFPAY ==
[2021-01-12 16:50] VITALS: BMI 35.5
[2021-12-19 08:22] LABS: Add Manual Diff / Slide Review NO; Basophils Absolute Auto 100 /uL (0-100); Basophils Percent Auto 0.8 % (0-2); Eosinophils Absolute Auto 1000 /uL (0-450); Eosinophils Percent Auto 7.6 % (2-4); Hematocrit 34.5 % (41-53); Hemoglobin 11.9 g/dL (13.5-17.5); Lymphocytes Absolute Auto 1900 /uL (1100-4500); Lymphocytes Percent Auto 15.2 % (25-40); Mean Corpuscular HGB Conc 34.4 % (30-36); Monocytes Absolute Auto 1100 /uL (0-900); Monocytes Percent Auto 8.9 % (3-14); Neutrophils Absolute Auto 8400 /uL (1500-7000); Neutrophils Percent Auto 67.5 % (50-75); Platelet Count 298 X10^3/uL (150-400); Red Blood Cell Count 3.97 X10^6/uL (4.5-5.9); Red Cell Distribution Width 13.1 % (11.6-14.8); White Blood Cell Count 12.5 X10^3/uL (4.5-11.0)
[2021-12-19 08:56] LABS: BUN Creatinine Ratio 23.1 (6-22); Blood Urea Nitrogen 56 mg/dL (9-20); Calcium 8.6 mg/dL (8.4-10.2); Carbon Dioxide 29 mmol/L (22-32); Chloride 103 mmol/L (98-107); Estimated Glomerular Filt Rate 29 mL/min (>60); Glucose 129 mg/dL (80-110); HEMOLYSIS < 15 (0-50); Magnesium 2.3 mg/dL (1.6-2.3); Phosphorous 3.6 mg/dL (2.3-3.7); Potassium 3.5 mmol/L (3.4-5.1); Sodium 137 mmol/L (137-145)
== END ==
PROVIDERS: PCP Internal Medicine; Visit Provider Internal Medicine
DX: N18.9 Chronic kidney disease, unspecified (principal); N39.0 Urinary tract infection, site not specified
CPT/HCPCS: 36415; 80048; 81001; 83735; 84100; 85025; 87077; 87086; 87186

== ENCOUNTER → 2021-12-19 21:53 | Outpatient (ROUT) | payer MEDICARE, MEDICAID, SELFPAY ==
[2021-01-12 16:50] VITALS: BMI 35.5
[2021-12-19 22:11] LABS: Appearance Urine UA CLOUDY; Bilirubin Urine UA NEGATIVE (NEGATIVE); Color Urine UA YELLOW; Glucose Urine UA NEGATIVE (Negative); Ketones Urine UA NEGATIVE (NEGATIVE); Leukocyte Esterase Urine UA 3+ (NEGATIVE); Nitrite Urine UA NEGATIVE (Negative); Occult Blood Urine UA 3+ (Negative); Protein Urine UA 1+ (Negative); Specific Gravity Urine UA <=1.005 (1.000-1.035); Urobilinogen Urine UA 0.2 E.U./dL (0.2); pH Urine UA 5.5 (4.5-8.0)
[2021-12-19 22:26] LABS: WBC Urine >100/HPF (0-5/HPF)
[2021-12-19 22:27] LABS: Bacteria Urine Many (>30); Culture Indicated Urine Specimen Cultured; RBC Urine 1-5/HPF (0-5/HPF); Squamous Epithelial Cell Urine 0-1 /HPF (0-5/HPF)
== END ==
PROVIDERS: Visit Provider Nurse Practitioner Family
DX: N39.0 Urinary tract infection, site not specified (principal)
CPT/HCPCS: 81001; 87086

== ENCOUNTER → 2021-12-20 11:09 | Outpatient (ROUT) | payer MEDICARE, MEDICAID, SELFPAY ==
[2021-01-12 16:50] VITALS: BMI 35.5
[2021-12-20 11:49] LABS: Add Manual Diff / Slide Review NO; Basophils Absolute Auto 100 /uL (0-100); Basophils Percent Auto 0.5 % (0-2); Eosinophils Absolute Auto 1100 /uL (0-450); Eosinophils Percent Auto 7.3 % (2-4); Hemoglobin 12.5 g/dL (13.5-17.5); Lymphocytes Absolute Auto 1800 /uL (1100-4500); Lymphocytes Percent Auto 12.1 % (25-40); Mean Corpuscular HGB Conc 33.7 % (30-36); Mean Corpuscular Hemoglobin 29.9 PG (26-34); Mean Corpuscular Volume 88.8 fL (80-100); Monocytes Absolute Auto 900 /uL (0-900); Monocytes Percent Auto 6.1 % (3-14); Neutrophils Absolute Auto 10800 /uL (1500-7000); Platelet Count 320 X10^3/uL (150-400); Red Blood Cell Count 4.17 X10^6/uL (4.5-5.9); Red Cell Distribution Width 13.1 % (11.6-14.8); White Blood Cell Count 14.6 X10^3/uL (4.5-11.0)
== END ==
PROVIDERS: PCP Internal Medicine; Visit Provider Nurse Practitioner Family
DX: D72.829 Elevated white blood cell count, unspecified (principal)
CPT/HCPCS: 85025

== ENCOUNTER → 2021-12-22 09:48 | Outpatient (CLI) | payer MEDICARE, MEDICAID, SELFPAY ==
[2021-01-12 16:50] VITALS: BMI 35.5
== END ==
PROVIDERS: PCP Internal Medicine; Referring Provider Internal Medicine; Visit Provider Family Medicine
DX: L24.A2 Irritant contact dermatitis due to fecal, urinary or dual incontinence (principal); S31.819A Unspecified open wound of right buttock, initial encounter; S31.829A Unspecified open wound of left buttock, initial encounter; E11.622 Type 2 diabetes mellitus with other skin ulcer; G35 Multiple sclerosis; Z74.09 Other reduced mobility; E11.22 Type 2 diabetes mellitus with diabetic chronic kidney disease; N18.6 End stage renal disease; Z93.6 Other artificial openings of urinary tract status; R32 Unspecified urinary incontinence
CPT/HCPCS: 99213; 99214

== ENCOUNTER → 2021-12-22 10:34 | Outpatient (CLI) | payer OTHER, MEDICAID, SELFPAY ==
[2021-01-12 16:50] VITALS: BMI 35.5
[2021-12-22 12:27] LABS: Add Manual Diff / Slide Review NO; Basophils Absolute Auto 100 /uL (0-100); Basophils Percent Auto 0.8 % (0-2); Eosinophils Absolute Auto 1100 /uL (0-450); Eosinophils Percent Auto 8.3 % (2-4); Hematocrit 37.3 % (41-53); Hemoglobin 12.7 g/dL (13.5-17.5); Lymphocytes Absolute Auto 1900 /uL (1100-4500); Lymphocytes Percent Auto 15.2 % (25-40); Mean Corpuscular HGB Conc 34.2 % (30-36); Mean Corpuscular Hemoglobin 29.9 PG (26-34); Mean Corpuscular Volume 87.6 fL (80-100); Monocytes Absolute Auto 1100 /uL (0-900); Monocytes Percent Auto 8.5 % (3-14); Neutrophils Absolute Auto 8600 /uL (1500-7000); Neutrophils Percent Auto 67.2 % (50-75); Platelet Count 333 X10^3/uL (150-400); Red Blood Cell Count 4.25 X10^6/uL (4.5-5.9); Red Cell Distribution Width 12.9 % (11.6-14.8); White Blood Cell Count 12.7 X10^3/uL (4.5-11.0)
== END ==
PROVIDERS: PCP Internal Medicine; Referring Provider Nurse Practitioner Family; Visit Provider Nurse Practitioner Family
DX: D72.829 Elevated white blood cell count, unspecified (principal)
CPT/HCPCS: 36415; 85025

== ENCOUNTER → 2021-12-26 13:27 | Outpatient (ROUT) | payer OTHER, MEDICAID, SELFPAY ==
[2021-01-12 16:50] VITALS: BMI 35.5
[2021-12-26 14:11] LABS: Add Manual Diff / Slide Review NO; Basophils Absolute Auto 100 /uL (0-100); Basophils Percent Auto 0.7 % (0-2); Eosinophils Absolute Auto 900 /uL (0-450); Eosinophils Percent Auto 7.3 % (2-4); Hematocrit 35.6 % (41-53); Lymphocytes Absolute Auto 1500 /uL (1100-4500); Lymphocytes Percent Auto 12.8 % (25-40); Mean Corpuscular HGB Conc 33.8 % (30-36); Mean Corpuscular Hemoglobin 29.7 PG (26-34); Mean Corpuscular Volume 87.8 fL (80-100); Monocytes Absolute Auto 900 /uL (0-900); Monocytes Percent Auto 7.2 % (3-14); Neutrophils Absolute Auto 8700 /uL (1500-7000); Platelet Count 303 X10^3/uL (150-400); Red Blood Cell Count 4.05 X10^6/uL (4.5-5.9); Red Cell Distribution Width 12.9 % (11.6-14.8); White Blood Cell Count 12.1 X10^3/uL (4.5-11.0)
== END ==
PROVIDERS: PCP Internal Medicine; Visit Provider Nurse Practitioner Gerontology
DX: Z13.89 Encounter for screening for other disorder (principal)
CPT/HCPCS: 85025

== ENCOUNTER → 2022-01-04 18:25 | Outpatient (ROUT) | payer OTHER, MEDICAID, SELFPAY ==
[2021-01-12 16:50] VITALS: BMI 35.5
[2022-01-04 19:11] LABS: Appearance Urine UA SL CLOUDY; Bilirubin Urine UA NEGATIVE (NEGATIVE); Color Urine UA YELLOW; Glucose Urine UA NEGATIVE (Negative); Ketones Urine UA NEGATIVE (NEGATIVE); Leukocyte Esterase Urine UA 3+ (NEGATIVE); Nitrite Urine UA NEGATIVE (Negative); Occult Blood Urine UA 2+ (Negative); Protein Urine UA 1+ (Negative); Urobilinogen Urine UA 0.2 E.U./dL (0.2); pH Urine UA 6.5 (4.5-8.0)
[2022-01-04 19:27] LABS: RBC Urine 5-10/HPF (0-5/HPF)
[2022-01-04 19:28] LABS: Bacteria Urine Few (2-10); Culture Indicated Urine Specimen Cultured; Squamous Epithelial Cell Urine 0-1 /HPF (0-5/HPF); WBC Urine 30-100/HPF (0-5/HPF)
== END ==
PROVIDERS: PCP Internal Medicine; Visit Provider Internal Medicine
DX: N18.9 Chronic kidney disease, unspecified (principal)
CPT/HCPCS: 81001; 87077; 87086; 87186

== ENCOUNTER → 2022-01-05 09:19 | Outpatient (CLI) | payer OTHER, MEDICAID, SELFPAY ==
[2021-01-12 16:50] VITALS: BMI 35.5
== END ==
PROVIDERS: PCP Internal Medicine; Referring Provider Internal Medicine; Visit Provider Family Medicine
DX: R21 Rash and other nonspecific skin eruption (principal)
CPT/HCPCS: 99213

== ENCOUNTER → 2022-01-09 07:32 | Outpatient (ROUT) | payer OTHER, MEDICAID, SELFPAY ==
[2021-01-12 16:50] VITALS: BMI 35.5
[2022-01-09 08:37] LABS: Add Manual Diff / Slide Review NO; Basophils Absolute Auto 100 /uL (0-100); Basophils Percent Auto 1.1 % (0-2); Eosinophils Absolute Auto 900 /uL (0-450); Eosinophils Percent Auto 8.8 % (2-4); Hematocrit 35.8 % (41-53); Hemoglobin 12.2 g/dL (13.5-17.5); Lymphocytes Absolute Auto 1900 /uL (1100-4500); Lymphocytes Percent Auto 17.5 % (25-40); Mean Corpuscular HGB Conc 33.9 % (30-36); Mean Corpuscular Hemoglobin 29.5 PG (26-34); Mean Corpuscular Volume 86.8 fL (80-100); Monocytes Absolute Auto 900 /uL (0-900); Monocytes Percent Auto 8.3 % (3-14); Neutrophils Absolute Auto 6900 /uL (1500-7000); Neutrophils Percent Auto 64.3 % (50-75); Platelet Count 332 X10^3/uL (150-400); Red Blood Cell Count 4.12 X10^6/uL (4.5-5.9); Red Cell Distribution Width 12.8 % (11.6-14.8); White Blood Cell Count 10.7 X10^3/uL (4.5-11.0)
== END ==
PROVIDERS: PCP Internal Medicine; Visit Provider Nurse Practitioner Gerontology
DX: D64.9 Anemia, unspecified (principal); N18.9 Chronic kidney disease, unspecified
CPT/HCPCS: 36415; 85025

== ENCOUNTER → 2022-01-16 10:54 | Outpatient (CLI) | payer OTHER, MEDICAID, SELFPAY ==
[2021-01-12 16:50] VITALS: BMI 35.5
[2022-01-16 12:04] LABS: Add Manual Diff / Slide Review NO; Basophils Absolute Auto 100 /uL (0-100); Basophils Percent Auto 1.2 % (0-2); Eosinophils Absolute Auto 900 /uL (0-450); Eosinophils Percent Auto 7.9 % (2-4); Hematocrit 38.9 % (41-53); Hemoglobin 12.8 g/dL (13.5-17.5); Lymphocytes Absolute Auto 1800 /uL (1100-4500); Lymphocytes Percent Auto 16.2 % (25-40); Mean Corpuscular Hemoglobin 28.9 PG (26-34); Mean Corpuscular Volume 87.6 fL (80-100); Monocytes Absolute Auto 800 /uL (0-900); Monocytes Percent Auto 7.5 % (3-14); Neutrophils Absolute Auto 7500 /uL (1500-7000); Neutrophils Percent Auto 67.2 % (50-75); Platelet Count 307 X10^3/uL (150-400); Red Blood Cell Count 4.44 X10^6/uL (4.5-5.9); Red Cell Distribution Width 13.1 % (11.6-14.8); White Blood Cell Count 11.1 X10^3/uL (4.5-11.0)
[2022-01-16 12:17] LABS: BUN Creatinine Ratio 20.1 (6-22); Blood Urea Nitrogen 43 mg/dL (9-20); Calcium 8.5 mg/dL (8.4-10.2); Carbon Dioxide 28 mmol/L (22-32); Chloride 102 mmol/L (98-107); Estimated Glomerular Filt Rate 34 mL/min (>60); Glucose 177 mg/dL (80-110); HEMOLYSIS 27 (0-50); Magnesium 2.3 mg/dL (1.6-2.3); Phosphorous 3.3 mg/dL (2.3-3.7); Potassium 3.6 mmol/L (3.4-5.1); Sodium 139 mmol/L (137-145)
[2022-01-16 12:23] LABS: Hemoglobin A1C% w Est Avg Glu 6.5 % (4.0-6.0)
== END ==
PROVIDERS: PCP Internal Medicine; Referring Provider Internal Medicine; Visit Provider Internal Medicine
DX: N18.9 Chronic kidney disease, unspecified (principal); E08.00 Diabetes mellitus due to underlying condition with hyperosmolarity without nonketotic hyperglycemic-hyperosmolar coma (NKHHC)
CPT/HCPCS: 36415; 80048; 83036; 83735; 84100; 85025

== ENCOUNTER → 2022-01-17 19:47 | Outpatient (ROUT) | payer OTHER, MEDICAID, SELFPAY ==
[2021-01-12 16:50] VITALS: BMI 35.5
[2022-01-17 20:21] LABS: Appearance Urine UA CLOUDY; Bilirubin Urine UA NEGATIVE (NEGATIVE); Color Urine UA YELLOW; Glucose Urine UA NEGATIVE (Negative); Ketones Urine UA NEGATIVE (NEGATIVE); Leukocyte Esterase Urine UA TRACE (NEGATIVE); Nitrite Urine UA NEGATIVE (Negative); Occult Blood Urine UA 3+ (Negative); Protein Urine UA 1+ (Negative); Specific Gravity Urine UA <=1.005 (1.000-1.035); Urobilinogen Urine UA 0.2 E.U./dL (0.2); pH Urine UA >= 9.0 (4.5-8.0)
[2022-01-17 20:36] LABS: Bacteria Urine Many (>30); Culture Indicated Urine Specimen Cultured; RBC Urine >100/HPF (0-5/HPF); Squamous Epithelial Cell Urine 0-1 /HPF (0-5/HPF); WBC Urine 5-10/HPF (0-5/HPF)
== END ==
PROVIDERS: PCP Internal Medicine; Visit Provider Nurse Practitioner Family
DX: N18.9 Chronic kidney disease, unspecified (principal)
CPT/HCPCS: 81001; 87077; 87086; 87186

== ENCOUNTER → 2022-01-23 07:42 | Outpatient (ROUT) | payer OTHER, MEDICAID, SELFPAY ==
[2021-01-12 16:50] VITALS: BMI 35.5
[2022-01-23 08:27] LABS: Add Manual Diff / Slide Review NO; Basophils Absolute Auto 100 /uL (0-100); Basophils Percent Auto 1.2 % (0-2); Eosinophils Absolute Auto 1100 /uL (0-450); Eosinophils Percent Auto 11.9 % (2-4); Hematocrit 35.1 % (41-53); Hemoglobin 12.1 g/dL (13.5-17.5); Lymphocytes Absolute Auto 1700 /uL (1100-4500); Mean Corpuscular HGB Conc 34.5 % (30-36); Mean Corpuscular Hemoglobin 29.7 PG (26-34); Mean Corpuscular Volume 86.1 fL (80-100); Monocytes Absolute Auto 800 /uL (0-900); Monocytes Percent Auto 8.1 % (3-14); Neutrophils Absolute Auto 5800 /uL (1500-7000); Neutrophils Percent Auto 60.8 % (50-75); Platelet Count 291 X10^3/uL (150-400); Red Blood Cell Count 4.08 X10^6/uL (4.5-5.9); Red Cell Distribution Width 13.1 % (11.6-14.8); White Blood Cell Count 9.6 X10^3/uL (4.5-11.0)
== END ==
PROVIDERS: PCP Internal Medicine; Visit Provider Internal Medicine
DX: D84.89 Other immunodeficiencies (principal)
CPT/HCPCS: 36415; 85025

== ENCOUNTER → 2022-01-26 09:53 | Outpatient (CLI) | payer OTHER, MEDICAID, SELFPAY ==
[2021-01-12 16:50] VITALS: BMI 35.5
== END ==
PROVIDERS: PCP Internal Medicine; Referring Provider Internal Medicine; Visit Provider Nurse Practitioner Family
DX: R21 Rash and other nonspecific skin eruption (principal); G35 Multiple sclerosis; Z74.09 Other reduced mobility; Z93.6 Other artificial openings of urinary tract status; Z99.3 Dependence on wheelchair
CPT/HCPCS: 99213

== ENCOUNTER → 2022-04-03 07:23 | Outpatient (ROUT) | payer OTHER, MEDICAID, SELFPAY ==
[2021-01-12 16:50] VITALS: BMI 35.5
[2022-04-03 07:57] LABS: Hematocrit 36.9 % (41-53); Hemoglobin 12.7 g/dL (13.5-17.5)
[2022-04-03 08:22] LABS: Creatinine Urine Random 82.6 mg/dL; Protein (Total) Urine Random 82 mg/dL (0-12); Protein Creatinine Ratio Urine 0.99 GRAM/24H
[2022-04-03 08:27] LABS: Alanine Aminotransferase 10 IU/L (<50); Albumin 3.4 g/dL (3.5-5.0); Albumin Globulin Ratio 1.3 (1.0-2.8); Alkaline Phosphatase 73 U/L (38-126); Aspartate Aminotransferase 15 IU/L (17-59); BUN Creatinine Ratio 16.5 (6-22); Bilirubin Total 0.3 mg/dL (0.2-1.3); Bilirubin Unconjugated 0.4 mg/dL (0.0-1.1); Blood Urea Nitrogen 41 mg/dL (9-20); Calcium 8.4 mg/dL (8.4-10.2); Carbon Dioxide 29 mmol/L (22-32); Chloride 101 mmol/L (98-107); Estimated Glomerular Filt Rate 28 mL/min (>60); Globulin 2.7 g/dL (1.7-4.1); Glucose 91 mg/dL (80-110); HEMOLYSIS < 15 (0-50); Phosphorous 3.2 mg/dL (2.3-3.7); Potassium 3.2 mmol/L (3.4-5.1); Sodium 138 mmol/L (137-145); Total Protein 6.1 g/dL (6.3-8.2)
[2022-04-03 08:37] LABS: Vitamin D 25 Hydroxy (D3) 29.8 ng/mL (30.0-100.0)
[2022-04-03 08:56] LABS: Ferritin 36 ng/mL (18-464)
[2022-04-04 07:42] LABS: Parathyroid Hormone Int 57 pg/mL (15-65)
== END ==
PROVIDERS: PCP Internal Medicine; Visit Provider Internal Medicine
DX: N18.9 Chronic kidney disease, unspecified (principal)
CPT/HCPCS: 36415; 80069; 80076; 82043; 82306; 82570; 82728; 83970; 84156; 85014; 85018

== ENCOUNTER → 2022-04-10 07:46 | Outpatient (ROUT) | payer OTHER, MEDICAID, SELFPAY ==
[2021-01-12 16:50] VITALS: BMI 35.5
[2022-04-10 10:04] LABS: HEMOLYSIS < 15 (0-50); Potassium 3.6 mmol/L (3.4-5.1)
== END ==
PROVIDERS: PCP Internal Medicine; Visit Provider Nurse Practitioner Family
DX: E87.6 Hypokalemia (principal)
CPT/HCPCS: 36415; 84132

== ENCOUNTER → 2022-05-08 07:49 | Outpatient (ROUT) | payer OTHER, MEDICAID, SELFPAY ==
[2021-01-12 16:50] VITALS: BMI 35.5
[2022-05-08 08:57] LABS: Add Manual Diff / Slide Review NO; BUN Creatinine Ratio 15.7 (6-22); Basophils Absolute Auto 100 /uL (0-100); Blood Urea Nitrogen 40 mg/dL (9-20); Calcium 8.2 mg/dL (8.4-10.2); Carbon Dioxide 28 mmol/L (22-32); Chloride 101 mmol/L (98-107); Eosinophils Absolute Auto 1100 /uL (0-450); Eosinophils Percent Auto 11.4 % (2-4); Estimated Glomerular Filt Rate 28 mL/min (>60); Glucose 146 mg/dL (80-110); HEMOLYSIS < 15 (0-50); Hematocrit 37.7 % (41-53); Hemoglobin 12.5 g/dL (13.5-17.5); Lymphocytes Absolute Auto 1400 /uL (1100-4500); Lymphocytes Percent Auto 14.4 % (25-40); Mean Corpuscular HGB Conc 33.1 % (30-36); Mean Corpuscular Hemoglobin 28.1 PG (26-34); Mean Corpuscular Volume 84.9 fL (80-100); Monocytes Absolute Auto 600 /uL (0-900); Monocytes Percent Auto 6.6 % (3-14); Neutrophils Absolute Auto 6300 /uL (1500-7000); Neutrophils Percent Auto 66.6 % (50-75); Phosphorous 3.3 mg/dL (2.3-3.7); Platelet Count 301 X10^3/uL (150-400); Potassium 3.4 mmol/L (3.4-5.1); Red Blood Cell Count 4.44 X10^6/uL (4.5-5.9); Red Cell Distribution Width 14.6 % (11.6-14.8); Sodium 139 mmol/L (137-145); White Blood Cell Count 9.5 X10^3/uL (4.5-11.0)
== END ==
PROVIDERS: PCP Internal Medicine; Visit Provider Internal Medicine
DX: N18.9 Chronic kidney disease, unspecified (principal)
CPT/HCPCS: 36415; 80048; 83735; 84100; 85025

== ENCOUNTER → 2022-05-09 14:27 | Outpatient (CLI) | payer OTHER, MEDICAID, SELFPAY ==
[2021-01-12 16:50] VITALS: BMI 35.5
== END ==
PROVIDERS: PCP Internal Medicine; Referring Provider Internal Medicine; Visit Provider Surgery
DX: S31.819A Unspecified open wound of right buttock, initial encounter (principal); S31.829A Unspecified open wound of left buttock, initial encounter; L24.A2 Irritant contact dermatitis due to fecal, urinary or dual incontinence; G35 Multiple sclerosis; E11.628 Type 2 diabetes mellitus with other skin complications
CPT/HCPCS: 99214

== ENCOUNTER → 2022-05-16 09:47 | Outpatient (CLI) | payer OTHER, MEDICAID, SELFPAY ==
[2021-01-12 16:50] VITALS: BMI 35.5
== END ==
PROVIDERS: PCP Internal Medicine; Referring Provider Internal Medicine; Visit Provider Surgery
DX: L24.A2 Irritant contact dermatitis due to fecal, urinary or dual incontinence (principal); S31.819A Unspecified open wound of right buttock, initial encounter; S31.829A Unspecified open wound of left buttock, initial encounter; G35 Multiple sclerosis; E11.628 Type 2 diabetes mellitus with other skin complications; R60.0 Localized edema
CPT/HCPCS: 99213; 99214

== ENCOUNTER → 2022-06-06 09:57 | Outpatient (CLI) | payer OTHER, MEDICAID, SELFPAY ==
[2021-01-12 16:50] VITALS: BMI 35.5
== END ==
PROVIDERS: PCP Internal Medicine; Referring Provider Internal Medicine; Visit Provider Surgery
DX: S31.819A Unspecified open wound of right buttock, initial encounter (principal); S31.829A Unspecified open wound of left buttock, initial encounter; E11.628 Type 2 diabetes mellitus with other skin complications; L24.A2 Irritant contact dermatitis due to fecal, urinary or dual incontinence; G35 Multiple sclerosis; Z99.3 Dependence on wheelchair; R60.0 Localized edema; Z93.8 Other artificial opening status
CPT/HCPCS: 99213

== ENCOUNTER → 2022-07-04 10:35 | Outpatient (CLI) | payer OTHER, MEDICAID, SELFPAY ==
[2021-01-12 16:50] VITALS: BMI 35.5
== END ==
PROVIDERS: PCP Internal Medicine; Referring Provider Internal Medicine; Visit Provider Surgery
DX: L24.A2 Irritant contact dermatitis due to fecal, urinary or dual incontinence (principal); S31.819A Unspecified open wound of right buttock, initial encounter; S31.829A Unspecified open wound of left buttock, initial encounter; E11.622 Type 2 diabetes mellitus with other skin ulcer; G35 Multiple sclerosis
CPT/HCPCS: 99213

== ENCOUNTER → 2022-07-17 07:39 | Outpatient (ROUT) | payer OTHER, MEDICAID, SELFPAY ==
[2021-01-12 16:50] VITALS: BMI 35.5
[2022-07-17 08:00] LABS: Add Manual Diff / Slide Review NO; Basophils Absolute Auto 100 /uL (0-100); Basophils Percent Auto 1.1 % (0-2); Eosinophils Absolute Auto 700 /uL (0-450); Eosinophils Percent Auto 8.8 % (2-4); Hematocrit 38.2 % (41-53); Hemoglobin 12.4 g/dL (13.5-17.5); Lymphocytes Absolute Auto 1300 /uL (1100-4500); Lymphocytes Percent Auto 16.2 % (25-40); Mean Corpuscular HGB Conc 32.6 % (30-36); Mean Corpuscular Hemoglobin 27.9 PG (26-34); Mean Corpuscular Volume 85.5 fL (80-100); Monocytes Absolute Auto 400 /uL (0-900); Monocytes Percent Auto 5.4 % (3-14); Neutrophils Absolute Auto 5400 /uL (1500-7000); Neutrophils Percent Auto 68.5 % (50-75); Platelet Count 297 X10^3/uL (150-400); Red Blood Cell Count 4.47 X10^6/uL (4.5-5.9); Red Cell Distribution Width 14.3 % (11.6-14.8); White Blood Cell Count 7.9 X10^3/uL (4.5-11.0)
[2022-07-17 08:07] LABS: Hemoglobin A1C% w Est Avg Glu 6.8 % (4.0-6.0)
[2022-07-17 08:14] LABS: BUN Creatinine Ratio 15.5 (6-22); Blood Urea Nitrogen 37 mg/dL (9-20); Calcium 7.9 mg/dL (8.4-10.2); Carbon Dioxide 30 mmol/L (22-32); Chloride 102 mmol/L (98-107); Estimated Glomerular Filt Rate 30 mL/min (>60); Glucose 175 mg/dL (80-110); HEMOLYSIS < 15 (0-50); Potassium 3.7 mmol/L (3.4-5.1); Sodium 139 mmol/L (137-145)
== END ==
PROVIDERS: PCP Internal Medicine; Visit Provider Internal Medicine
DX: R73.03 Prediabetes (principal); N18.9 Chronic kidney disease, unspecified
CPT/HCPCS: 36415; 80048; 83036; 85025

== ENCOUNTER → 2022-07-18 10:03 | Outpatient (CLI) | payer OTHER, MEDICAID, SELFPAY ==
[2021-01-12 16:50] VITALS: BMI 35.5
== END ==
PROVIDERS: PCP Internal Medicine; Referring Provider Internal Medicine; Visit Provider Surgery
DX: L24.A2 Irritant contact dermatitis due to fecal, urinary or dual incontinence (principal); S31.819A Unspecified open wound of right buttock, initial encounter; S31.829A Unspecified open wound of left buttock, initial encounter; E11.622 Type 2 diabetes mellitus with other skin ulcer; G35 Multiple sclerosis; R21 Rash and other nonspecific skin eruption
CPT/HCPCS: 99213

== ENCOUNTER → 2022-08-01 10:01 | Outpatient (ROUT) | payer OTHER, MEDICAID, SELFPAY ==
[2021-01-12 16:50] VITALS: BMI 35.5
[2022-08-02 10:15] LABS: Fecal Immunochemical Test Positive (Negative)
== END ==
PROVIDERS: PCP Internal Medicine; Visit Provider Nurse Practitioner Gerontology
DX: Z86.010 Personal history of colon polyps (principal)
CPT/HCPCS: 82274

== ENCOUNTER 2022-08-09 16:48 | Emergency (ER) | payer OTHER, MEDICAID, SELFPAY ==
[2021-01-12 16:50] VITALS: BMI 35.5
[2022-08-09] VITALS (8 sets, daily range): BP systolic 102–125; BP diastolic 55–63; PULSE 77–82; RESP 22; TEMP 36.8; O2SAT 97–98; BMI 36.0
--- NOTE | 2022-08-09 17:36 | PC.NURSE ---
ice to left eye, swollen eccymotic and conjuctiva has some bleeding.
--- NOTE | 2022-08-09 17:37 | PC.NURSE ---
denies headache, denies vision changes. no neck pain. pt reports minimal pain.
--- NOTE | 2022-08-09 18:54 | ED.HEATRA ---
HPI - Head Injury <Jennie Aguilar PA-C - Last Filed: 08/09/22 19:16> General Chief complaint: Trauma Stated complaint: Fall, Head Lac Time Seen by Provider: 08/09/22 16:56 Source: patient and EMS Mode of arrival: EMS History of Present Illness HPI Narrative: 61-year-old male with history of MS, CKD, type 2 diabetes who is a resident of [facility] presents brought in by ambulance with concern for cuts to the left side of his face with some swelling after sustained a fall at [place] today. Patient states that he was in bed and they were rolling him some how he came off the bed and went onto the ground about 2 ft down from his bed. He states on his way he hit his left forehead/eyebrow on his night stand. Because of the bruising and cuts and his fall they called EMS to have him evaluated. Patient denies headache, vision changes, neck pain, numbness or tingling of his extremities that is new new weakness or any other symptoms. Patient does have chronic left arm and low lower extremity weakness at baseline due to his MS. Patient denies being on blood thinners. Also denies loss of consciousness or any other symptoms or concerns. Related Data Home Medications Medication Instructions Recorded Confirmed acetaminophen 325 mg capsule 650 mg PO Q4H PRN fever/pain 12/30/20 05/10/21 aspirin 81 mg tablet 81 mg PO QAM 12/30/20 05/10/21 bismuth subsalicylate 262 mg/15 mL 524 mg PO Q4HR PRN loose stools / 12/30/20 05/10/21 oral suspension (Pepto-Bismol) upset stomach chlorhexidine gluconate 2 % See Rx Instructions .Route .COMPLEX 12/30/20 05/10/21 topical liquid docusate sodium 100 mg capsule 200 mg PO QAM 12/30/20 05/10/21 ferrous sulfate 325 mg (65 mg 325 mg PO QAM 12/30/20 05/10/21 iron) capsule,extended release pantoprazole 40 mg tablet,delayed 40 mg PO QAM 12/30/20 05/10/21 release atorvastatin 20 mg tablet 20 mg PO BEDTIME 04/12/21 05/10/21 epoetin erasto 10,000 unit/mL 10,000 unit SUBCUT QWEEK 04/12/21 05/10/21 injection solution insulin glargine 100 unit/mL (3 30 unit SUBCUT QPM 04/12/21 05/10/21 mL) subcutaneous pen (Lantus Solostar U-100 Insulin) lidocaine HCl 4 % topical cream 1 applic topical TID PRN 04/12/21 05/10/21 (Aspercreme (lidocaine HCl)) nystatin 100,000 unit/gram topical 1 applic topical BID PRN 04/12/21 05/10/21 ointment tamsulosin 0.4 mg capsule 0.8 mg PO BEDTIME 04/12/21 05/10/21 torsemide 20 mg tablet 20 mg PO DAILY 04/12/21 05/10/21 hydrocodone 5 mg-acetaminophen 325 1 - 2 tab PO Q6H PRN Pain (Scale 05/10/21 05/10/21 mg tablet Score 7-10) loperamide 2 mg capsule 2 mg PO BID PRN Diarrhea 05/10/21 05/10/21 polyethylene glycol 3350 17 gram 17 g PO QAM 05/10/21 05/10/21 oral powder packet sodium polystyrene sulfonate 15 g PO Q OTHER DAY 05/10/21 05/10/21 oxybutynin chloride 15 mg 15 mg PO DAILY 07/03/21 tablet,extended release 24 hr Allergies Allergy/AdvReac Type Severity Reaction Status Date / Time No Known Drug Allergies Allergy Verified 12/20/21 08:24 Review of Systems <Jennie Aguilar PA-C - Last Filed: 08/09/22 19:16> Review of Systems Narrative: See HPI Patient History <Jennie Aguilar PA-C - Last Filed: 08/09/22 19:16> Medical History Chronic anemia Chronic kidney disease Chronic kidney disease, stage IV (severe) History of neurogenic bladder Hyperlipidemia Hypertension Multiple sclerosis Neurogenic bladder Recurrent UTI (urinary tract infection) Stroke Type 2 diabetes mellitus Surgical History History of circumcision History of knee replacement Hx of hernia repair Family History Grandfather Coronary artery disease Brother Hyperlipidemia Hypertension Social History marital status: unmarried,single number of children: 1 household members: caregiver Smoking Status: Former smoker alcohol intake: former substance use type: does not use Smoking Status: Former smoker alcohol intake frequency: 0-2 drinks per day Substance Use Type: does not use Exam <Jennie Aguilar PA-C - Last Filed: 08/09/22 19:16> Narrative Exam Narrative: GENERAL: 61 year old patient appears stated age. Well-developed patient, in mild distress. HEAD: There is a forming hematoma lateral to the left eye and over the lateral left eyebrow, there are minor superficial abrasions associated with this, there are also 2 small lacerations, 1 is fairly superficial and lateral to the left eyebrow approximately 5 mm, 2nd laceration is in the crease of the patient's eye lateral to the eye follow-up following the normal crease line it is approximately 8 mm in length full-thickness but approximates well without gapping or continued bleeding. Otherwise Atraumatic. Normocephalic. Facial bones are stable. No epistaxis or other bruising/injury noted. EYES: Pupils equal round and reactive. Extraocular motions intact. No scleral icterus. The lateral aspect of the left eye has a subconjunctival hematoma consistent with recent trauma. No hyphema. No injection or drainage. ENT: Nose without bleeding, purulent drainage. Normal Bite, Throat without erythema, tonsillar hypertrophy or exudate. Airway patent. NECK: Trachea midline. Non tender CARDIOVASCULAR: Regular rate and rhythm without murmurs, gallops, or rubs. RESPIRATORY: Clear to auscultation. Breath sounds equal bilaterally. No wheezes, rales, or rhonchi. GASTROINTESTINAL/: Abdomen soft, non-tender, nondistended. Hightower catheter in place EXTREMITIES: Chronic bilateral lower extremity edema. BACK: Nontender without deformity or crepitance. No flank tenderness. NEURO: AOx3. SKIN: No rash or erythema of visible areas Initial Vital Signs Initial Vital Signs: Vital Signs Temperature 98.2 F 08/09/22 17:00 Pulse Rate 81 08/09/22 17:00 Respiratory Rate 22 08/09/22 17:00 Blood Pressure 125/63 08/09/22 17:00 Pulse Oximetry 98 08/09/22 17:00 Oxygen Delivery Method Room Air 08/09/22 17:00 <Alesia Fung DO - Last Filed: 08/10/22 07:19> Initial Vital Signs Initial Vital Signs: Vital Signs Temperature 98.2 F 08/09/22 17:00 Pulse Rate 81 08/09/22 17:00 Respiratory Rate 22 08/09/22 17:00 Blood Pressure 125/63 08/09/22 17:00 Pulse Oximetry 98 08/09/22 17:00 Oxygen Delivery Method Room Air 08/09/22 17:00 Procedures <Jennie Aguilar PA-C - Last Filed: 08/09/22 19:16> Laceration Repair Laceration 1: Time of procedure: 18:40 Site: face (left eyebrow) Side (If applicable): left Size (cm): 0.3 Description: linear Depth: simple, single layer Pre-repair: wound explored, irrigated extensively, deep structures intact and cleansed with chlorhexadine Skin layer closed with: dermabond Laceration 2: Time of procedure: 18:50 Site: face Side (If applicable): left Size (cm): 0.8 Description: linear Depth: simple, single layer (good alignment, no gapping, runs along natural crease line lat to eye) Pre-repair: wound explored, irrigated extensively and cleansed with chlorhexadine Skin layer closed with: dermabond Course <Jennie Aguilar PA-C - Last Filed: 08/09/22 19:16> Course Course Narrative: Did discuss this patient with the attending physician, Dr. Cote, given very low-speed fall out of bed with height 24 in or less as well as not being on blood thinners and no concerning symptoms or exam findings do not feel that CT head neck is necessary today. 6161 Vital Signs Vital signs: Vital Signs - 8 hr 08/09/22 17:00 08/09/22 17:23 08/09/22 17:12 Temperature 98.2 F Pulse Rate 81 79 Respiratory Rate 22 22 Blood Pressure 125/63 Pulse Oximetry 98 98 Oxygen Delivery Method Room Air Room Air 08/09/22 17:27 08/09/22 17:27 08/09/22 17:30 Temperature Pulse Rate 82 Respiratory Rate Blood Pressure 118/59 L 111/58 L Pulse Oximetry 98 Oxygen Delivery Method Room Air 08/09/22 17:30 Temperature Pulse Rate 77 Respiratory Rate Blood Pressure Pulse Oximetry 98 Oxygen Delivery Method <Alesia Fung DO - Last Filed: 08/10/22 07:19> Vital Signs Vital signs: Vital Signs - 8 hr 08/09/22 17:00 08/09/22 17:23 08/09/22 17:12 Temperature 98.2 F Pulse Rate 81 79 Respiratory Rate 22 22 Blood Pressure 125/63 Pulse Oximetry 98 98 Oxygen Delivery Method Room Air Room Air 08/09/22 17:27 08/09/22 17:27 08/09/22 17:30 Temperature Pulse Rate 82 Respiratory Rate Blood Pressure 118/59 L 111/58 L Pulse Oximetry 98 Oxygen Delivery Method Room Air 08/09/22 17:30 Temperature Pulse Rate 77 Respiratory Rate Blood Pressure Pulse Oximetry 98 Oxygen Delivery Method MDM - Head Injury <Jennie Aguilar PA-C - Last Filed: 08/09/22 19:16> Differential Diagnosis Differential diagnosis: Likely closed head injury and other (hematoma, subconjunctival hemorrhage, laceration, abrasions) Medical Records Attestation: I reviewed the patient's medical records. Treatment and disposition Shared decision making:: Shared decision-making was used in determining this patient's plan of care in the emergency department and plan for outpatient follow-up, return to [facility] Narrative Medical decision making narrative: This is a 61-year-old male with history of kidney failure, type 2 diabetes and MS who presents to the emergency department brought in by ambulance with concern for injury to the left side of his face after he rolled out of bed during a role move being performed by care staff at [facility]. Patient hit lateral aspect of his eyebrow on his night stand on the way down. Patient's fall was less than 24 in and he has no vision change, headache, nausea, vomiting, no loss of consciousness, no neck pain no C-spine tenderness and after discussion with attending physician advanced imaging is not obtained today. Patient's facial bones are stable on exam. Do clean area around the eye, provide ice for swelling, and repair 2 small lacerations with Dermabond as above and procedures. Discharge Plan Departure Patient Disposition: Home Clinical Impression: Hematoma, Laceration, Fall Activity Restrictions/Additional Instructions: Thank you for letting us be part of your care today in the emergency department. I am sorry that you had a fall today when they were rolling you at [place], your injuries do appear to be superficial, you will likely have some bruising for a few days until the swelling resolves, we did repair 2 small lacerations with Dermabond which is a type of skin glue. It is important that you keep these areas dry until they heal for about the next 5-10 days. If you do develop any concerning symptoms that are new for you such as headache, vision change, new neck pain or any other symptoms of concern you think may be related to your fall today please do not hesitate to seek re-evaluation. There is no evidence of an emergent or life threatening illness at this time, but follow up with your doctor in 1-2 days is recommended nonetheless to continue to rule out serious underlying causes of your symptoms. Please call the office for an appointment. Please return to the Emergency Department for any worsening or persistent symptoms. Please take medications as directed. Prescriptions: No Action oxybutynin chloride 15 mg tablet extended release 24 hr 15 mg PO DAILY epoetin erasto 10,000 unit/mL solution 10,000 unit SUBCUT QWEEK torsemide 20 mg tablet 20 mg PO DAILY lidocaine HCl [Aspercreme (lidocaine HCl)] 4 % cream 1 applic topical TID PRN nystatin 100,000 unit/gram ointment 1 applic topical BID PRN pantoprazole 40 mg Tablet,Delayed Release (Dr/Ec) 40 mg PO QAM bismuth subsalicylate [Pepto-Bismol] 262 mg/15 mL Suspension 524 mg PO Q4HR PRN (Reason: loose stools / upset stomach) chlorhexidine gluconate 2 % Liquid See Rx Instructions .ROUTE .COMPLEX Rx Instructions: 1 applic topically in the morning every e, [place], Sun docusate sodium 100 mg Capsule 200 mg PO QAM aspirin 81 mg Tablet 81 mg PO QAM ferrous sulfate 325 mg (65 mg iron) Capsule, Extended Release 325 mg PO QAM acetaminophen 325 mg Capsule 650 mg PO Q4H PRN (Reason: fever/pain) tamsulosin 0.4 mg capsule 0.8 mg PO BEDTIME atorvastatin 20 mg tablet 20 mg PO BEDTIME Lantus Solostar U-100 Insulin 100 unit/mL (3 mL) insulin pen 30 unit SUBCUT QPM loperamide 2 mg capsule 2 mg PO BID PRN (Reason: Diarrhea) hydrocodone-acetaminophen 5-325 mg tablet 1 - 2 tab PO Q6H PRN (Reason: Pain (Scale Score 7-10)) polyethylene glycol 3350 17 gram powder in packet 17 g PO QAM sodium polystyrene sulfonate Powder 15 g PO Q OTHER DAY Referrals: Keeley Michel MD [Primary Care Provider] - Stand Alone Forms: Patient Portal/API <Alesia Fung DO - Last Filed: 08/10/22 07:19> Cosign ED Attending Cosignature Attestation: I was immediately available in the department for consultation. Documentation has been reviewed.
== END 2022-08-09 19:45 | disposition home or self-care (01) ==
PROVIDERS: Emergency Provider Student in an Organized Health Care Education/Training Program; PCP Internal Medicine
DX: S01.81XA Laceration without foreign body of other part of head, initial encounter (principal); S00.83XA Contusion of other part of head, initial encounter; W06.XXXA Fall from bed, initial encounter
CPT/HCPCS: 12011; 99281; 99282

== ENCOUNTER → 2022-08-15 11:11 | Outpatient (CLI) | payer MEDICARE, MEDICAID, SELFPAY ==
[2021-01-12 16:50] VITALS: BMI 35.5
== END ==
PROVIDERS: PCP Internal Medicine; Referring Provider Internal Medicine; Visit Provider Nurse Practitioner Family
DX: L24.A2 Irritant contact dermatitis due to fecal, urinary or dual incontinence (principal); S31.819A Unspecified open wound of right buttock, initial encounter; S31.829A Unspecified open wound of left buttock, initial encounter; E11.628 Type 2 diabetes mellitus with other skin complications; G35 Multiple sclerosis
CPT/HCPCS: 97602; 99213

== ENCOUNTER → 2022-09-13 10:59 | Outpatient (CLI) | payer MEDICARE, MEDICAID, SELFPAY ==
[2021-01-12 16:50] VITALS: BMI 35.5
== END ==
PROVIDERS: PCP Internal Medicine; Referring Provider Internal Medicine; Visit Provider Surgery
DX: L24.A2 Irritant contact dermatitis due to fecal, urinary or dual incontinence (principal); S31.819D Unspecified open wound of right buttock, subsequent encounter; S31.829D Unspecified open wound of left buttock, subsequent encounter; G35 Multiple sclerosis; Z93.6 Other artificial openings of urinary tract status; Z99.3 Dependence on wheelchair
CPT/HCPCS: 99212; 99213

== ENCOUNTER 2022-11-13 13:24 | Emergency (ER) | payer MEDICARE, MEDICAID, SELFPAY ==
[2022-10-23 14:08] VITALS: BMI 35.5
[2022-11-13] VITALS (22 sets, daily range): BP systolic 102–133; BP diastolic 52–66; PULSE 67–96; RESP 17–25; TEMP 36.8–38.4; O2SAT 91–99
--- NOTE | 2022-11-13 13:35 | DI.RAD.S_ITS ---
PROCEDURE: XR CHEST 1V INDICATIONS: suspected sepsis TECHNIQUE: One view of the chest was acquired. COMPARISON: [facility], CR, XR CHEST 1V, 03/15/2021, 8:55. FINDINGS: Surgical changes and devices: None. Lungs and pleura: Bilateral subtle perihilar airspace opacities greater on the right are seen consistent with mild pulmonary edema versus less likely infectious process. Mediastinum: Mediastinal contours appear normal. Heart size is normal. Bones and chest wall: No suspicious bony lesions. Overlying soft tissues appear unremarkable. IMPRESSION: Subtle bilateral perihilar airspace opacities consistent with mild pulmonary edema versus infectious process. Dictated by: Constantine Daugherty M.D. on 11/13/2022 at 13:34 Approved by: Constantine Daugherty M.D. on 11/13/2022 at 13:35
--- NOTE | 2022-11-13 13:38 | PC.NURSE ---
Radha from [facility] calling to give report patient has been feeling off today. confused this morning but speaking gibberish in last hour. BG 358 today. urine has been cloudy and very smelly. staff has had to flush patient's catheter for a few days but did not do culture of urine. last catheter change was last week no UA done at this time. pt started vomiting. pt did not want to come to ER but staff encouraged.
--- NOTE | 2022-11-13 13:50 | ED.SEPSIS ---
HPI - Sepsis <Ruben Veras DO - Last Filed: 11/14/22 07:56> General Chief Complaint: Fever Mode of arrival: Ambulatory Source: patient Limitations: no limitations Evaluation Sepsis Screen: Possible Sepsis Risk Sepsis Infection Criteria Present: Suspected New Infection Narrative: 61-year-old male former smoker with history of chronic kidney disease, neurogenic bladder, MS, diabetes is nonmobile at baseline but gets around in his relatively active in his motorized wheelchair. He is felt a relatively rapid change in his overall health in the past 24 hours or less complaining fever, shaking chills, generalized weakness along with nausea and vomiting. He is had some minor nasal congestion but denies any sore throat, cough, chest pain. He denies abdominal pain. He has had an indwelling Hightower catheter for about 2 years and states it was most recently change last night. He denies any rash or breaks in the skin. Patient History <Ruben Veras DO - Last Filed: 11/14/22 07:56> Medical History Chronic anemia Chronic kidney disease Chronic kidney disease, stage IV (severe) History of neurogenic bladder Hyperlipidemia Hypertension Multiple sclerosis Neurogenic bladder Recurrent UTI (urinary tract infection) Stroke Type 2 diabetes mellitus Surgical History History of circumcision History of knee replacement Hx of hernia repair Family History Grandfather Coronary artery disease Brother Hyperlipidemia Hypertension Social History marital status: unmarried,single number of children: 1 household members: caregiver Smoking Status: Former smoker alcohol intake: former substance use type: does not use Smoking Status: Former smoker alcohol intake frequency: 0-2 drinks per day Substance Use Type: does not use Exam <Ruben Veras DO - Last Filed: 11/14/22 07:56> Narrative Exam Narrative: GENERAL: [61] year old patient appears stated age. Well-developed patient, in moderate distress. HEAD: Atraumatic. Normocephalic. EYES: Pupils equal round and reactive. Extraocular motions intact. No scleral icterus. No injection or drainage. ENT: Dry mucous membranes. Nose without bleeding, purulent drainage. Throat without erythema, tonsillar hypertrophy or exudate. Airway patent. NECK: Trachea midline. Non tender CARDIOVASCULAR: Regular rate and rhythm without murmurs, gallops, or rubs. RESPIRATORY: Clear to auscultation. Breath sounds equal bilaterally. No wheezes, rales, or rhonchi. GASTROINTESTINAL: Abdomen soft, non-tender, nondistended. EXTREMITIES: No edema or joint tenderness. BACK: Nontender without deformity or crepitance. No flank tenderness. NEURO: AOx3. SKIN: No rash or erythema of visible areas Initial Vital Signs Initial Vital Signs: Vital Signs Temperature 101.2 F H 11/13/22 13:31 Pulse Rate 96 H 11/13/22 13:31 Respiratory Rate 24 11/13/22 13:31 Blood Pressure 133/60 11/13/22 13:31 Pulse Oximetry 95 11/13/22 13:31 Oxygen Delivery Method Room Air 11/13/22 13:31 <Alesia Fung DO - Last Filed: 11/14/22 00:23> Initial Vital Signs Initial Vital Signs: Vital Signs Temperature 101.2 F H 11/13/22 13:31 Pulse Rate 96 H 11/13/22 13:31 Respiratory Rate 24 11/13/22 13:31 Blood Pressure 133/60 11/13/22 13:31 Pulse Oximetry 95 11/13/22 13:31 Oxygen Delivery Method Room Air 11/13/22 13:31 Course <Ruben Veras DO - Last Filed: 11/14/22 07:56> Orders Ordered: Discontinued Medications Acetaminophen (Acetaminophen 325 Mg Tablet) 975 mg PO NOW ONE Stop: 11/13/22 16:23 Last Admin: 11/13/22 16:29 Dose: 975 mg Documented By: NR Sodium Chloride (Normal Saline 0.9%) 1,000 mls @ 1,000 mls/hr IV BOLUS ONE Stop: 11/13/22 14:39 Last Infusion: 11/13/22 15:38 Dose: 0 mls/hr Documented By: Admin: 11/13/22 14:27 Dose: 1,000 mls/hr Documented By: SHARA Sodium Chloride (Normal Saline 0.9%) 1,000 mls @ 1,000 mls/hr IV BOLUS ONE Stop: 11/13/22 14:39 Last Admin: 11/13/22 15:04 Dose: Not Given Documented By: SHARA Ceftriaxone Sodium 2,000 mg/ (Sodium Chloride) 100 mls @ 200 mls/hr IV NOW ONE Stop: 11/13/22 15:04 Last Infusion: 11/13/22 16:23 Dose: 0 mls/hr Documented By: Admin: 11/13/22 15:36 Dose: 200 mls/hr Documented By: JAYME Sodium Chloride (Normal Saline 0.9%) 1,983 mls @ 661 mls/hr 30 ml/kg infuse over 3 hr (1983 ml) IV NOW ONE Stop: 11/13/22 18:02 Last Infusion: 11/13/22 19:45 Dose: 0 mls/hr Documented By: Admin: 11/13/22 15:36 Dose: 661 mls/hr Documented By: JAYME Cefepime HCl 1 gm/ Sodium (Chloride) 100 mls @ 200 mls/hr IV NOW ONE Stop: 11/13/22 15:51 Last Infusion: 11/13/22 17:42 Dose: 0 mls/hr Documented By: Admin: 11/13/22 16:30 Dose: 200 mls/hr Documented By: NR Vancomycin HCl (Vancomycin) 1,000 mg in 200 mls @ 200 mls/hr IV Q24H [facility] Last Infusion: 11/13/22 18:58 Dose: 0 mls/hr Documented By: Admin: 11/13/22 17:46 Dose: 200 mls/hr Documented By: JAYME Acetaminophen (Ofirmev) 1,000 mg in 100 mls @ 400 mls/hr IV NOW ONE Stop: 11/13/22 17:46 Last Admin: 11/13/22 17:43 Dose: Not Given Documented By: JAYME Sodium Chloride (Normal Saline 0.9%) 1,000 mls @ 125 mls/hr IV [facility] Last Admin: 11/13/22 21:10 Dose: 125 mls/hr Documented By: HARLAN Ondansetron HCl (Ondansetron 4 Mg/2 Ml Inj) 4 mg IV NOW PRN PRN Reason: Nausea And Vomiting Ondansetron HCl (Ondansetron 4 Mg Odt) 4 mg SL NOW PRN PRN Reason: Nausea And Vomiting Vital Signs Vital signs: Vital Signs - 8 hr 11/13/22 16:30 11/13/22 16:40 11/13/22 16:54 Temperature Pulse Rate 80 80 Respiratory Rate 23 24 Blood Pressure 118/58 L Pulse Oximetry 94 95 Oxygen Delivery Method 11/13/22 16:54 11/13/22 17:00 11/13/22 17:00 Temperature Pulse Rate 79 76 Respiratory Rate 23 23 Blood Pressure 117/56 L Pulse Oximetry 98 94 Oxygen Delivery Method Room Air 11/13/22 17:45 11/13/22 19:10 11/13/22 20:28 Temperature 99.3 F Pulse Rate 76 74 Respiratory Rate 18 17 Blood Pressure 104/56 L 112/57 L Pulse Oximetry 91 95 Oxygen Delivery Method Room Air Room Air 11/13/22 21:09 Temperature 98.3 F Pulse Rate 67 Respiratory Rate 18 Blood Pressure 117/66 Pulse Oximetry 96 Oxygen Delivery Method Room Air <Alesia uFng DO - Last Filed: 11/14/22 00:23> Orders Ordered: Discontinued Medications Acetaminophen (Acetaminophen 325 Mg Tablet) 975 mg PO NOW ONE Stop: 11/13/22 16:23 Last Admin: 11/13/22 16:29 Dose: 975 mg Documented By: NR Sodium Chloride (Normal Saline 0.9%) 1,000 mls @ 1,000 mls/hr IV BOLUS ONE Stop: 11/13/22 14:39 Last Infusion: 11/13/22 15:38 Dose: 0 mls/hr Documented By: Admin: 11/13/22 14:27 Dose: 1,000 mls/hr Documented By: SHARA Sodium Chloride (Normal Saline 0.9%) 1,000 mls @ 1,000 mls/hr IV BOLUS ONE Stop: 11/13/22 14:39 Last Admin: 11/13/22 15:04 Dose: Not Given Documented By: SHARA Ceftriaxone Sodium 2,000 mg/ (Sodium Chloride) 100 mls @ 200 mls/hr IV NOW ONE Stop: 11/13/22 15:04 Last Infusion: 11/13/22 16:23 Dose: 0 mls/hr Documented By: Admin: 11/13/22 15:36 Dose: 200 mls/hr Documented By: NR Sodium Chloride (Normal Saline 0.9%) 1,983 mls @ 661 mls/hr 30 ml/kg infuse over 3 hr (1983 ml) IV NOW ONE Stop: 11/13/22 18:02 Last Infusion: 11/13/22 19:45 Dose: 0 mls/hr Documented By: Admin: 11/13/22 15:36 Dose: 661 mls/hr Documented By: NR Cefepime HCl 1 gm/ Sodium (Chloride) 100 mls @ 200 mls/hr IV NOW ONE Stop: 11/13/22 15:51 Last Infusion: 11/13/22 17:42 Dose: 0 mls/hr Documented By: Admin: 11/13/22 16:30 Dose: 200 mls/hr Documented By: NR Vancomycin HCl (Vancomycin) 1,000 mg in 200 mls @ 200 mls/hr IV Q24H [facility] Last Infusion: 11/13/22 18:58 Dose: 0 mls/hr Documented By: Admin: 11/13/22 17:46 Dose: 200 mls/hr Documented By: NR Acetaminophen (Ofirmev) 1,000 mg in 100 mls @ 400 mls/hr IV NOW ONE Stop: 11/13/22 17:46 Last Admin: 11/13/22 17:43 Dose: Not Given Documented By: NR Sodium Chloride (Normal Saline 0.9%) 1,000 mls @ 125 mls/hr IV CONT [facility] Last Admin: 11/13/22 21:10 Dose: 125 mls/hr Documented By: HARLAN Ondansetron HCl (Ondansetron 4 Mg/2 Ml Inj) 4 mg IV NOW PRN PRN Reason: Nausea And Vomiting Ondansetron HCl (Ondansetron 4 Mg Odt) 4 mg SL NOW PRN PRN Reason: Nausea And Vomiting Vital Signs Vital signs: Vital Signs - 8 hr 11/13/22 16:30 11/13/22 16:40 11/13/22 16:54 Temperature Pulse Rate 80 80 Respiratory Rate 23 24 Blood Pressure 118/58 L Pulse Oximetry 94 95 Oxygen Delivery Method 11/13/22 16:54 11/13/22 17:00 11/13/22 17:00 Temperature Pulse Rate 79 76 Respiratory Rate 23 23 Blood Pressure 117/56 L Pulse Oximetry 98 94 Oxygen Delivery Method Room Air 11/13/22 17:45 11/13/22 19:10 11/13/22 20:28 Temperature 99.3 F Pulse Rate 76 74 Respiratory Rate 18 17 Blood Pressure 104/56 L 112/57 L Pulse Oximetry 91 95 Oxygen Delivery Method Room Air Room Air 11/13/22 21:09 Temperature 98.3 F Pulse Rate 67 Respiratory Rate 18 Blood Pressure 117/66 Pulse Oximetry 96 Oxygen Delivery Method Room Air Sepsis Evaluation (ED) <Ruben Veras DO - Last Filed: 11/14/22 07:56> Triage Screening Sepsis Screen: Possible Sepsis Risk Level 1 - Infection Sepsis Infection Criteria Present: Suspected New Infection <Alesia Fung DO - Last Filed: 11/14/22 00:23> Response It is my opinion that his patient have a likely infectious etiology for meeting sepsis criteria: Does Fluid calculation based on 30 mL/kg within 1hr of criteria: N/A Antibiotics initiated within 1 hr of Sepis dx: Yes Tissue Perfusion Reassessed within 6 hrs of infusion start time: Yes Date of Tissue Perfusion Reassessment completed: 11/13/22 Time Tissue Perfusion Reassessment completed: 19:00 MDM - Sepsis <Ruben Veras DO - Last Filed: 11/14/22 07:56> Lab Data 11/13/22 14:12 11/13/22 14:12 Labs: Lab Results 11/13/22 11/13/22 11/13/22 Range/Units 14:12 14:12 14:12 WBC 14.7 H (4.5-11.0) X10^3/uL RBC 4.58 (4.5-5.9) X10^6/uL Hgb 13.2 L (13.5-17.5) g/dL Hct 39.2 L (41-53) % MCV 85.7 (80-100) fL MCH 28.7 (26-34) PG MCHC 33.5 (30-36) % RDW 14.5 (11.6-14.8) % Plt Count 218 (150-400) X10^3/uL Neut % (Auto) 90.3 H (50-75) % Lymph % (Auto) 1.9 L (25-40) % Desoto % (Auto) 7.2 (3-14) % Eos % (Auto) 0.0 L (2-4) % Baso % (Auto) 0.6 (0-2) % Neut # (Auto) 18813 H (8277-9190) /uL Lymph # (Auto) 300 L (9706-6283) /uL [place] # (Auto) 1100 H (0-900) /uL Eos # (Auto) 0 (0-450) /uL Baso # (Auto) 100 (0-100) /uL PT 14.3 H (10.1-12.7) SECONDS INR 1.2 (0.9-1.3) APTT 34 (26-36) SECONDS Sodium 134 L (137-145) mmol/L Potassium 4.1 (3.4-5.1) mmol/L Chloride 99 (98-107) mmol/L Carbon Dioxide 27 (22-32) mmol/L BUN 51 H (9-20) mg/dL Creatinine 3.50 H (0.66-1.25) mg/dL Estimated GFR 19 L (>60) mL/min BUN/Creatinine Ratio 14.6 (6-22) Glucose 285 H (80-110) mg/dL Lactate (0.7-2.1) mmol/L Calcium 8.6 (8.4-10.2) mg/dL Total Bilirubin 0.7 (0.2-1.3) mg/dL AST 45 (17-59) IU/L ALT 49 (<50) IU/L Alkaline Phosphatase 128 H (38-126) U/L Total Creatine Kinase (55-170) U/L Troponin I (0.01-0.034) ng/mL NT-Pro-B Natriuret Pep (<125) pg/mL Total Protein 6.6 (6.3-8.2) g/dL Albumin 3.6 (3.5-5.0) g/dL Globulin 3.0 (1.7-4.1) g/dL Albumin/Globulin Ratio 1.2 (1.0-2.8) Lipase 37 (23-300) U/L Procalcitonin 1.72 H (<0.5) ng/mL Urine Color Urine Appearance Urine pH (4.5-8.0) Ur Specific Harrison (1.000-1.035) Urine Protein (Negative) Urine Glucose (UA) (Negative) g/dL Urine Ketones (NEGATIVE) Urine Occult Blood (Negative) Urine Nitrate (Negative) Urine Bilirubin (NEGATIVE) Urine Urobilinogen (0.2) E.U./dL Ur Leukocyte Esterase (NEGATIVE) Urine RBC (0-5/HPF) Urine WBC (0-5/HPF) Ur Squamous Epith Cells (0-5/HPF) Urine Bacteria (None) Ur Culture Indicated? 11/13/22 11/13/22 11/13/22 Range/Units 14:12 14:12 15:13 WBC (4.5-11.0) X10^3/uL RBC (4.5-5.9) X10^6/uL Hgb (13.5-17.5) g/dL Hct (41-53) % MCV (80-100) fL MCH (26-34) PG MCHC (30-36) % RDW (11.6-14.8) % Plt Count (150-400) X10^3/uL Neut % (Auto) (50-75) % Lymph % (Auto) (25-40) % Desoto % (Auto) (3-14) % Eos % (Auto) (2-4) % Baso % (Auto) (0-2) % Neut # (Auto) (4049-1214) /uL Lymph # (Auto) (1366-3787) /uL [place] # (Auto) (0-900) /uL Eos # (Auto) (0-450) /uL Baso # (Auto) (0-100) /uL PT (10.1-12.7) SECONDS INR (0.9-1.3) APTT (26-36) SECONDS Sodium (137-145) mmol/L Potassium (3.4-5.1) mmol/L Chloride (98-107) mmol/L Carbon Dioxide (22-32) mmol/L BUN (9-20) mg/dL Creatinine (0.66-1.25) mg/dL Estimated GFR (>60) mL/min BUN/Creatinine Ratio (6-22) Glucose (80-110) mg/dL Lactate 1.2 (0.7-2.1) mmol/L Calcium (8.4-10.2) mg/dL Total Bilirubin (0.2-1.3) mg/dL AST (17-59) IU/L ALT (<50) IU/L Alkaline Phosphatase (38-126) U/L Total Creatine Kinase < 20 L (55-170) U/L Troponin I 0.017 (0.01-0.034) ng/mL NT-Pro-B Natriuret Pep 2270 H (<125) pg/mL Total Protein (6.3-8.2) g/dL Albumin (3.5-5.0) g/dL Globulin (1.7-4.1) g/dL Albumin/Globulin Ratio (1.0-2.8) Lipase (23-300) U/L Procalcitonin (<0.5) ng/mL Urine Color Yellow Urine Appearance Cloudy Urine pH 8.5 H (4.5-8.0) Ur Specific Harrison 1.010 (1.000-1.035) Urine Protein 2+ H (Negative) Urine Glucose (UA) Negative (Negative) g/dL Urine Ketones Negative (NEGATIVE) Urine Occult Blood 3+ H (Negative) Urine Nitrate Negative (Negative) Urine Bilirubin Negative (NEGATIVE) Urine Urobilinogen 1.0 (0.2) E.U./dL Ur Leukocyte Esterase 3+ H (NEGATIVE) Urine RBC None seen (0-5/HPF) Urine WBC >100/hpf H (0-5/HPF) Ur Squamous Epith Cells None seen (0-5/HPF) Urine Bacteria Many (>30) H (None) Ur Culture Indicated? Specimen cultured Point of Care Testing Glucose POC 168 MDM Narrative Medical decision making narrative: 61-year-old male with fever, chills and generalized weakness is found to have sepsis related to urinary source. He is initially given fluids at 30 cc/kilogram of ideal body weight given BMI greater than 30, initial antibiotics given was Rocephin. He does have a change in his baseline creatinine from 2.3 up to 3.5 and imaging demonstrates a 6 mm right UPJ obstructing stone with multiple nonobstructing stones lying in a hydronephrotic collecting system. I did discuss with hospitalist and given our lack of on-call Urology patient must be transferred. <Alesia Fung, DO - Last Filed: 11/14/22 00:23> Lab Data Labs: Lab Results 11/13/22 11/13/22 11/13/22 Range/Units 14:12 14:12 14:12 WBC 14.7 H (4.5-11.0) X10^3/uL RBC 4.58 (4.5-5.9) X10^6/uL Hgb 13.2 L (13.5-17.5) g/dL Hct 39.2 L (41-53) % MCV 85.7 (80-100) fL MCH 28.7 (26-34) PG MCHC 33.5 (30-36) % RDW 14.5 (11.6-14.8) % Plt Count 218 (150-400) X10^3/uL Neut % (Auto) 90.3 H (50-75) % Lymph % (Auto) 1.9 L (25-40) % [place] % (Auto) 7.2 (3-14) % Eos % (Auto) 0.0 L (2-4) % Baso % (Auto) 0.6 (0-2) % Neut # (Auto) 91973 H (0096-3657) /uL Lymph # (Auto) 300 L (8087-6254) /uL [place] # (Auto) 1100 H (0-900) /uL Eos # (Auto) 0 (0-450) /uL Baso # (Auto) 100 (0-100) /uL PT 14.3 H (10.1-12.7) SECONDS INR 1.2 (0.9-1.3) APTT 34 (26-36) SECONDS Sodium 134 L (137-145) mmol/L Potassium 4.1 (3.4-5.1) mmol/L Chloride 99 (98-107) mmol/L Carbon Dioxide 27 (22-32) mmol/L BUN 51 H (9-20) mg/dL Creatinine 3.50 H (0.66-1.25) mg/dL Estimated GFR 19 L (>60) mL/min BUN/Creatinine Ratio 14.6 (6-22) Glucose 285 H (80-110) mg/dL Lactate (0.7-2.1) mmol/L Calcium 8.6 (8.4-10.2) mg/dL Total Bilirubin 0.7 (0.2-1.3) mg/dL AST 45 (17-59) IU/L ALT 49 (<50) IU/L Alkaline Phosphatase 128 H (38-126) U/L Total Creatine Kinase (55-170) U/L Troponin I (0.01-0.034) ng/mL NT-Pro-B Natriuret Pep (<125) pg/mL Total Protein 6.6 (6.3-8.2) g/dL Albumin 3.6 (3.5-5.0) g/dL Globulin 3.0 (1.7-4.1) g/dL Albumin/Globulin Ratio 1.2 (1.0-2.8) Lipase 37 (23-300) U/L Procalcitonin 1.72 H (<0.5) ng/mL Urine Color Urine Appearance Urine pH (4.5-8.0) Ur Specific Harrison (1.000-1.035) Urine Protein (Negative) Urine Glucose (UA) (Negative) g/dL Urine Ketones (NEGATIVE) Urine Occult Blood (Negative) Urine Nitrate (Negative) Urine Bilirubin (NEGATIVE) Urine Urobilinogen (0.2) E.U./dL Ur Leukocyte Esterase (NEGATIVE) Urine RBC (0-5/HPF) Urine WBC (0-5/HPF) Ur Squamous Epith Cells (0-5/HPF) Urine Bacteria (None) Ur Culture Indicated? 11/13/22 11/13/22 11/13/22 Range/Units 14:12 14:12 15:13 WBC (4.5-11.0) X10^3/uL RBC (4.5-5.9) X10^6/uL Hgb (13.5-17.5) g/dL Hct (41-53) % MCV (80-100) fL MCH (26-34) PG MCHC (30-36) % RDW (11.6-14.8) % Plt Count (150-400) X10^3/uL Neut % (Auto) (50-75) % Lymph % (Auto) (25-40) % [place] % (Auto) (3-14) % Eos % (Auto) (2-4) % Baso % (Auto) (0-2) % Neut # (Auto) (6171-9091) /uL Lymph # (Auto) (8966-5781) /uL [place] # (Auto) (0-900) /uL Eos # (Auto) (0-450) /uL Baso # (Auto) (0-100) /uL PT (10.1-12.7) SECONDS INR (0.9-1.3) APTT (26-36) SECONDS Sodium (137-145) mmol/L Potassium (3.4-5.1) mmol/L Chloride (98-107) mmol/L Carbon Dioxide (22-32) mmol/L BUN (9-20) mg/dL Creatinine (0.66-1.25) mg/dL Estimated GFR (>60) mL/min BUN/Creatinine Ratio (6-22) Glucose (80-110) mg/dL Lactate 1.2 (0.7-2.1) mmol/L Calcium (8.4-10.2) mg/dL Total Bilirubin (0.2-1.3) mg/dL AST (17-59) IU/L ALT (<50) IU/L Alkaline Phosphatase (38-126) U/L Total Creatine Kinase < 20 L (55-170) U/L Troponin I 0.017 (0.01-0.034) ng/mL NT-Pro-B Natriuret Pep 2270 H (<125) pg/mL Total Protein (6.3-8.2) g/dL Albumin (3.5-5.0) g/dL Globulin (1.7-4.1) g/dL Albumin/Globulin Ratio (1.0-2.8) Lipase (23-300) U/L Procalcitonin (<0.5) ng/mL Urine Color Yellow Urine Appearance Cloudy Urine pH 8.5 H (4.5-8.0) Ur Specific Harrison 1.010 (1.000-1.035) Urine Protein 2+ H (Negative) Urine Glucose (UA) Negative (Negative) g/dL Urine Ketones Negative (NEGATIVE) Urine Occult Blood 3+ H (Negative) Urine Nitrate Negative (Negative) Urine Bilirubin Negative (NEGATIVE) Urine Urobilinogen 1.0 (0.2) E.U./dL Ur Leukocyte Esterase 3+ H (NEGATIVE) Urine RBC None seen (0-5/HPF) Urine WBC >100/hpf H (0-5/HPF) Ur Squamous Epith Cells None seen (0-5/HPF) Urine Bacteria Many (>30) H (None) Ur Culture Indicated? Specimen cultured Point of Care Testing Glucose POC 168 MDM Narrative Medical decision making narrative: 61-year-old male with fever, chills and generalized weakness is found to have sepsis related to urinary source. He is initially given fluids at 30 cc/kilogram of ideal body weight given BMI greater than 30, initial antibiotics given was Rocephin. He does have a change in his baseline creatinine from 2.3 up to 3.5 and imaging demonstrates a 6 mm right UPJ obstructing stone with multiple nonobstructing stones lying in a hydronephrotic collecting system. I did discuss with hospitalist and given our lack of on-call Urology patient must be transferred. Patient signed out to me by Dr. Veras. I have spoken with neurology agrees that patient needs to be at a hospital where a stent could be placed. But currently not severe sepsis blood pressure and heart rate are stable. He is febrile with leukocytosis of 15, known 6 mm kidney stone at UPJ with increasing creatinine at 3.5 baseline is 2.3. He is indwelling Hightower catheter secondary to MS neurogenic bladder. He is not yet established care with Urology but has previously been seen by Dr. Maloney in 2020. Unfortunately we do not currently have urology in house. Concern for septic stone need for transfer patient. 19:50 [facility] urology updated patient's symptoms test results agrees with transfer and admit to hospitalist. 20:20-Dr. Falcon hospitalist Ada schmidt updated patient's symptoms test results urology recommendations kindly accepts patient. Critical Care Time <Ruben Veras, - Last Filed: 11/14/22 07:56> Critical Care Time Critical Care Time: Yes Total Critical Care Time: 30 Attestation: The high probability of a clinically significant, sudden or life threatening deterioration of the [] system(s) required my full and direct attention, intervention and personal management. The aggregate critical care time was [30] minutes. This time is in addition to time spent performing reported procedures but includes the following: [x] Data Review and interpretation [x] Patient assessment and monitoring of vital signs [x] Documentation [x] Medication orders and management Discharge Plan Departure Patient Disposition: Xfer Acute Care Hospital Clinical Impression: Acute UTI, Sepsis, Obstructed, uropathy Prescriptions: No Action sodium,potassium,mag sulfates [Suprep Bowel Prep Kit] 17.5-3.13-1.6 gram recon soln See Rx Instructions PO .COMPLEX Qty: 354 0RF Rx Instructions: Take as directed by Physician torsemide 20 mg tablet 20 mg PO QAM nystatin 100,000 unit/gram ointment 1 applic topical BID pantoprazole 40 mg Tablet,Delayed Release (Dr/Ec) 40 mg PO QAM bismuth subsalicylate [Pepto-Bismol] 262 mg/15 mL Suspension 524 mg PO Q4HR PRN (Reason: loose stools / upset stomach) docusate sodium 100 mg Capsule 200 mg PO QAM aspirin 81 mg Tablet 81 mg PO QAM ferrous sulfate 325 mg (65 mg iron) Capsule, Extended Release 325 mg PO QAM atorvastatin 20 mg tablet 20 mg PO BEDTIME Lantus Solostar U-100 Insulin 100 unit/mL (3 mL) insulin pen 30 unit SUBCUT QPM loperamide 2 mg capsule 2 mg PO BID PRN (Reason: Diarrhea) hydrocodone-acetaminophen 5-325 mg tablet 2 tab PO Q6H PRN (Reason: Pain (Scale Score 7-10)) polyethylene glycol 3350 17 gram powder in packet 17 g PO QAM hydrocodone-acetaminophen 5-325 mg tablet 1 tab PO BID ondansetron 8 mg tablet,disintegrating 8 mg translingual Q6HR PRN (Reason: nausea/vomiting) potassium chloride 10 mEq tablet extended release 10 meq PO QAM acetaminophen 500 mg tablet 1,000 mg PO Q4HR PRN (Reason: mild pain/ fever) calcium carbonate [Calcium Antacid] 200 mg calcium (500 mg) tablet,chewable 400 mg PO TID Rx Instructions: with meals for CKD docusate sodium 100 mg capsule 200 mg PO DAILY PRN (Reason: Constipation) cranberry extract [Cranberry Concentrate] 500 mg capsule 500 mg PO BID lidocaine HCl [Aspercreme (lidocaine HCl)] 4 % Cream 1 applic topical BEDTIME Referrals: Keeley Michel MD [Primary Care Provider] -
[2022-11-13 14:23] LABS: Add Manual Diff / Slide Review NO; Basophils Absolute Auto 100 /uL (0-100); Basophils Percent Auto 0.6 % (0-2); Eosinophils Absolute Auto 0 /uL (0-450); Hematocrit 39.2 % (41-53); Hemoglobin 13.2 g/dL (13.5-17.5); Lymphocytes Absolute Auto 300 /uL (1100-4500); Lymphocytes Percent Auto 1.9 % (25-40); Mean Corpuscular HGB Conc 33.5 % (30-36); Mean Corpuscular Hemoglobin 28.7 PG (26-34); Mean Corpuscular Volume 85.7 fL (80-100); Monocytes Absolute Auto 1100 /uL (0-900); Monocytes Percent Auto 7.2 % (3-14); Neutrophils Absolute Auto 13300 /uL (1500-7000); Neutrophils Percent Auto 90.3 % (50-75); Platelet Count 218 X10^3/uL (150-400); Red Blood Cell Count 4.58 X10^6/uL (4.5-5.9); Red Cell Distribution Width 14.5 % (11.6-14.8); White Blood Cell Count 14.7 X10^3/uL (4.5-11.0)
[2022-11-13] MEDS: SODIUM CHLORIDE 0.9% 1,000 ML 1000 ML IV (14:27)
[2022-11-13 14:29] LABS: INR 1.2 (0.9-1.3); Prothrombin Time 14.3 SECONDS (10.1-12.7)
[2022-11-13 14:32] LABS: PTT Partial Thromboplastin Tim 34 SECONDS (26-36)
[2022-11-13 14:33] LABS: Alanine Aminotransferase 49 IU/L (<50); Albumin 3.6 g/dL (3.5-5.0); Albumin Globulin Ratio 1.2 (1.0-2.8); Alkaline Phosphatase 128 U/L (38-126); Aspartate Aminotransferase 45 IU/L (17-59); BUN Creatinine Ratio 14.6 (6-22); Bilirubin Total 0.7 mg/dL (0.2-1.3); Blood Urea Nitrogen 51 mg/dL (9-20); Calcium 8.6 mg/dL (8.4-10.2); Carbon Dioxide 27 mmol/L (22-32); Chloride 99 mmol/L (98-107); Estimated Glomerular Filt Rate 19 mL/min (>60); Glucose 285 mg/dL (80-110); HEMOLYSIS < 15 (0-50); Lactate (Lactic Acid) 1.2 mmol/L (0.7-2.1); Lipase 37 U/L (23-300); Potassium 4.1 mmol/L (3.4-5.1); Sodium 134 mmol/L (137-145); Total Protein 6.6 g/dL (6.3-8.2)
[2022-11-13 14:50] LABS: Procalcitonin 1.72 ng/mL (<0.5)
[2022-11-13 14:59] LABS: Creatine Kinase < 20 U/L (55-170)
[2022-11-13 15:13] LABS: NT-proBNP (BNP-Adult 18+) 2270 pg/mL (<125); Troponin I 0.017 ng/mL (0.01-0.034)
[2022-11-13 15:25] LABS: Appearance Urine UA CLOUDY; Bilirubin Urine UA NEGATIVE (NEGATIVE); Color Urine UA YELLOW; Glucose Urine UA NEGATIVE (Negative); Ketones Urine UA NEGATIVE (NEGATIVE); Leukocyte Esterase Urine UA 3+ (NEGATIVE); Nitrite Urine UA NEGATIVE (Negative); Occult Blood Urine UA 3+ (Negative); Protein Urine UA 2+ (Negative); pH Urine UA 8.5 (4.5-8.0)
[2022-11-13 15:35] LABS: Bacteria Urine Many (>30); Culture Indicated Urine Specimen Cultured; RBC Urine None Seen (0-5/HPF); Squamous Epithelial Cell Urine None Seen (0-5/HPF); WBC Urine >100/HPF (0-5/HPF)
[2022-11-13] MEDS: cefTRIAXone 2,000 MG in SODIUM CHLORIDE 0.9% 100 ML 200 MG IV (15:36)
[2022-11-13] MEDS: SODIUM CHLORIDE 0.9% 1,983 ML 661 ML IV (15:36)
--- NOTE | 2022-11-13 16:15 | DI.CT.S_ITS ---
PROCEDURE: CT KIDNEY URETER BLADDER (KUB) INDICATIONS: urosepsis, acute on chronic kidney injury, obstructive? TECHNIQUE: Axial sections were acquired from the lung bases to the pubic symphysis. Coronal and sagittal reformats were performed. For radiation dose reduction, the following was used: automated exposure control, adjustment of mA and/or kV according to patient size. COMPARISON: [facility], CT, CT KIDNEY URETER BLADDER (KUB), 01/12/2021, 14:45. FINDINGS: Image quality: Excellent. Lung bases: Lung bases are clear. Heart size is normal. Bibasilar atelectasis Solid organs: Liver: The liver has no mass or intrahepatic biliary ductal dilatation. Biliary: The gallbladder has no gallstones, pericholecystic fluid, gallbladder wall thickening, or surrounding inflammatory change. Pancreas: The pancreas has no mass or ductal dilatation. There is no surrounding inflammation. Spleen: Normal size. There are no masses. Adrenals: No hypertrophy or nodules. Kidneys: The left kidney is atrophic. The right kidney has multiple nonobstructing stones layering in the calices and has a 6 mm stone in the right UPJ. There is inflammation in the fat surrounding the right kidney. The right kidney has moderate hydronephrosis. No cystic mass. Peritoneum and bowel: The distal esophagus and stomach are normal. The small bowel has a normal caliber and appearance. The terminal ileum is normal. The large bowel has a normal caliber and appearance. The appendix is not definitively visualized and therefore acute appendicitis cannot be excluded; however there are no secondary findings to suggest acute appendicitis. No free fluid or air. Nodes and vessels: No retroperitoneal or mesenteric adenopathy by size criteria. The aorta has atherosclerosis with no aneurysmal dilatation. Miscellaneous: No abdominal wall mass or hernia. PELVIS: Genitourinary: The bladder is decompressed with a Hightower. Bones: No suspicious bony lesions. No vertebral body compression fractures. IMPRESSION: 6 mm right UPJ obstructing kidney stone with multiple additional nonobstructing stones lying in a hydronephrotic collecting system dependently. Dictated by: Constantine Daugherty M.D. on 11/13/2022 at 15:44 Approved by: Constantine Daugherty M.D. on 11/13/2022 at 15:47
[2022-11-13] MEDS: ACETAMINOPHEN 325 MG TABLET 975 MG PO (16:29)
[2022-11-13] MEDS: CEFEPIME 1 GM in SODIUM CHLORIDE 0.9% 100 ML IV (16:30)
[2022-11-13] MEDS: VANCOMYCIN 1,000 MG/200 ML PIGGYBACK 200 MG IV (17:46)
--- NOTE | 2022-11-13 18:42 | PC.NURSE ---
[employer] Note: Attempted to find placement for pt for transfer. Spoke with Rip from [facility], Deshawn from [facility] and Sarah from [facility] and pt is on their lists. Spoke with Clover from [facility] and no Urologist in today. Attempted to call [facility] but no answer.
[2022-11-13] MEDS: SODIUM CHLORIDE 0.9% 1,000 ML 125 ML IV (21:10)
[2022-11-14 14:04] LABS: CTX-M Resistance Not Detected (Not Detect); IMP Resistance Not Detected (Not Detect); KPC Resistance Not Detected (Not Detect); NDM Resistance Not Detected (Not Detect); OXA-48-like Resistance Not Detected (Not Detect)
[2022-11-14 14:05] LABS: Acinetobacter calcoa-baumannii Not Detected (Not Detect); Bacteroides fragilis Not Detected (Not Detect); Candida albicans Not Detected (Not Detect); Candida auris Not Detected (Not Detect); Candida glabrata Not Detected (Not Detect); Candida krusei Not Detected (Not Detect); Candida parapsilosis Not Detected (Not Detect); Candida tropicalis Not Detected (Not Detect); Cryptococcus neoformans/gatti Not Detected (Not Detect); Enterobacter cloacae complex Not Detected (Not Detect); Enterobacterales DETECTED (Not Detect); Enterococcus faecalis Not Detected (Not Detect); Enterococcus faecium Not Detected (Not Detect); Haemophilus influenzae Not Detected (Not Detect); Klebsiella aerogenes Not Detected (Not Detect); Listeria monocytogenes Not Detected (Not Detect); Neisseria meningitidis Not Detected (Not Detect); Proteus species DETECTED (Not Detect); Pseudomonas aeruginosa Not Detected (Not Detect); Salmonella species Not Detected (Not Detect); Serratia marcescens Not Detected (Not Detect); Staphylococcus epidermidis Not Detected (Not Detect); Staphylococcus lugdunensis Not Detected (Not Detect); Staphylococcus species Not Detected (Not Detect); Stenotrophomonas maltophilia Not Detected (Not Detect); Streptococcus agalactiae (Gr B Not Detected (Not Detect); Streptococcus pneumonia Not Detected (Not Detect); Streptococcus pyogenes (Gr A) Not Detected (Not Detect); Streptococcus species Not Detected (Not Detect); VIM Resistance Not Detected (Not Detect)
[2022-11-15 01:54] LABS: Enterococcus faecalis Not Detected (Not Detect); Enterococcus faecium Not Detected (Not Detect); Listeria monocytogenes Not Detected (Not Detect); Staphylococcus species DETECTED (Not Detect)
[2022-11-15 01:55] LABS: Staphylococcus epidermidis Not Detected (Not Detect)
[2022-11-15 01:56] LABS: Acinetobacter calcoa-baumannii Not Detected (Not Detect); Bacteroides fragilis Not Detected (Not Detect); Enterobacter cloacae complex Not Detected (Not Detect); Enterobacterales Not Detected (Not Detect); Staphylococcus lugdunensis Not Detected (Not Detect); Streptococcus agalactiae (Gr B Not Detected (Not Detect); Streptococcus pneumonia Not Detected (Not Detect); Streptococcus pyogenes (Gr A) Not Detected (Not Detect); Streptococcus species Not Detected (Not Detect)
[2022-11-15 01:57] LABS: Candida albicans Not Detected (Not Detect); Candida auris Not Detected (Not Detect); Candida glabrata Not Detected (Not Detect); Candida krusei Not Detected (Not Detect); Candida parapsilosis Not Detected (Not Detect); Candida tropicalis Not Detected (Not Detect); Cryptococcus neoformans/gatti Not Detected (Not Detect); Haemophilus influenzae Not Detected (Not Detect); Klebsiella aerogenes Not Detected (Not Detect); Neisseria meningitidis Not Detected (Not Detect); Proteus species Not Detected (Not Detect); Pseudomonas aeruginosa Not Detected (Not Detect); Salmonella species Not Detected (Not Detect); Serratia marcescens Not Detected (Not Detect); Stenotrophomonas maltophilia Not Detected (Not Detect)
== END 2022-11-13 22:48 | disposition short-term general hospital (02) ==
PROVIDERS: Emergency Medicine; Emergency Provider Emergency Medicine; PCP Internal Medicine
DX: N39.0 Urinary tract infection, site not specified (principal); A41.9 Sepsis, unspecified organism; N13.9 Obstructive and reflux uropathy, unspecified; R11.2 Nausea with vomiting, unspecified
CPT/HCPCS: 36415; 71045; 74176; 80053; 81001; 82550; 82962; 83605; 83690; 83880; 84145; 84484; 85025; 85610; 85730; 87040; 87077; 87086; 87154; 87186; 96361; 96365; 96367; 99285; J0692; J0696

== ENCOUNTER → 2022-11-23 09:54 | Outpatient (CLI) | payer MEDICARE, MEDICAID, SELFPAY ==
[2022-10-23 14:08] VITALS: BMI 35.5
--- NOTE | 2022-11-23 09:58 | DI.RAD.S_ITS ---
PROCEDURE: [place] GUIDED PICC PLACEMENT INDICATIONS: PICC line placement COMPARISON: None. FINDINGS: PICC was placed by the intravenous therapy team from the right side. Fluoroscopic spot film demonstrates the tip of PICC projecting to the area of low SVC. IMPRESSION: Tip of PICC projects to the area of low SVC. Dictated by: Lazarus Ledezma M.D. on 12/26/2022 at 11:08 Approved by: Lazarsu Ledezma M.D. on 12/26/2022 at 11:08
== END ==
PROVIDERS: PCP Internal Medicine; Referring Provider Internal Medicine; Visit Provider Internal Medicine
DX: N39.0 Urinary tract infection, site not specified (principal); R78.81 Bacteremia; Z45.2 Encounter for adjustment and management of vascular access device
CPT/HCPCS: 36573; 76000

== ENCOUNTER → 2022-11-24 09:17 | Outpatient (ROUT) | payer MEDICARE, MEDICAID, SELFPAY ==
[2022-10-23 14:08] VITALS: BMI 35.5
[2022-11-24 09:29] LABS: Appearance Urine UA CLEAR; Bilirubin Urine UA NEGATIVE (NEGATIVE); Color Urine UA YELLOW; Glucose Urine UA NEGATIVE (Negative); Ketones Urine UA NEGATIVE (NEGATIVE); Leukocyte Esterase Urine UA 2+ (NEGATIVE); Nitrite Urine UA NEGATIVE (Negative); Occult Blood Urine UA 3+ (Negative); Protein Urine UA 1+ (Negative); Urobilinogen Urine UA 0.2 E.U./dL (0.2)
[2022-11-24 09:43] LABS: RBC Urine 10-30/HPF (0-5/HPF); WBC Urine 30-100/HPF (0-5/HPF)
[2022-11-24 09:44] LABS: Bacteria Urine Moderate (10-30); Culture Indicated Urine Specimen Cultured; Squamous Epithelial Cell Urine 0-1 /HPF (0-5/HPF)
== END ==
PROVIDERS: PCP Internal Medicine; Visit Provider Internal Medicine
DX: N39.0 Urinary tract infection, site not specified (principal)
CPT/HCPCS: 81001; 87086

== ENCOUNTER → 2022-12-04 07:16 | Outpatient (ROUT) | payer MEDICARE, MEDICAID, SELFPAY ==
[2022-10-23 14:08] VITALS: BMI 35.5
[2022-12-04 07:48] LABS: Add Manual Diff / Slide Review NO; Basophils Absolute Auto 100 /uL (0-100); Eosinophils Absolute Auto 500 /uL (0-450); Eosinophils Percent Auto 6.7 % (2-4); Hematocrit 37.3 % (41-53); Hemoglobin 12.8 g/dL (13.5-17.5); Lymphocytes Absolute Auto 1300 /uL (1100-4500); Mean Corpuscular HGB Conc 34.4 % (30-36); Mean Corpuscular Hemoglobin 29.1 PG (26-34); Mean Corpuscular Volume 84.6 fL (80-100); Monocytes Absolute Auto 600 /uL (0-900); Neutrophils Absolute Auto 4900 /uL (1500-7000); Neutrophils Percent Auto 66.3 % (50-75); Platelet Count 243 X10^3/uL (150-400); Red Cell Distribution Width 14.3 % (11.6-14.8); White Blood Cell Count 7.4 X10^3/uL (4.5-11.0)
[2022-12-04 07:57] LABS: Alanine Aminotransferase 17 IU/L (<50); Albumin 3.4 g/dL (3.5-5.0); Albumin Globulin Ratio 1.3 (1.0-2.8); Alkaline Phosphatase 76 U/L (38-126); Aspartate Aminotransferase 16 IU/L (17-59); BUN Creatinine Ratio 18.6 (6-22); Bilirubin Total 0.3 mg/dL (0.2-1.3); Blood Urea Nitrogen 42 mg/dL (9-20); Calcium 8.2 mg/dL (8.4-10.2); Carbon Dioxide 30 mmol/L (22-32); Chloride 101 mmol/L (98-107); Estimated Glomerular Filt Rate 32 mL/min (>60); Globulin 2.7 g/dL (1.7-4.1); Glucose 139 mg/dL (80-110); HEMOLYSIS < 15 (0-50); Potassium 3.8 mmol/L (3.4-5.1); Sodium 137 mmol/L (137-145); Total Protein 6.1 g/dL (6.3-8.2)
== END ==
PROVIDERS: PCP Internal Medicine; Visit Provider Nurse Practitioner Family
DX: N18.9 Chronic kidney disease, unspecified (principal); D72.829 Elevated white blood cell count, unspecified
CPT/HCPCS: 36415; 80053; 85025

== ENCOUNTER 2022-12-28 19:07 | Emergency (ER) | payer MEDICARE, MEDICAID, SELFPAY ==
[2022-10-23 14:08] VITALS: BMI 35.5
[2022-12-28] VITALS (14 sets, daily range): BP systolic 95–130; BP diastolic 50–76; PULSE 91–106; RESP 20–25; TEMP 37.5–39.1; O2SAT 93–99
--- NOTE | 2022-12-28 19:08 | DI.CT.S_ITS ---
PROCEDURE: CT ANGIO HEAD AND NECK INDICATIONS: L Side paralysis TECHNIQUE: After the administration of intravenous contrast, 1 mm thick sections acquired from the aortic arch through the [place]. 3-dimensional biqgkar-peuhxxpyz-lqoksjfxyc (MIP) and/or volume rendering reformats were acquired of the central intracranial vasculature and neck separately. For radiation dose reduction, the following was used: automated exposure control, adjustment of mA and/or kV according to patient size. COMPARISON: [facility], CT, CT ANGIO HEAD AND NECK, 12/28/2018, 19:42. [facility], CT, CT STROKE, 12/28/2022, 19:19. FINDINGS: Image quality: Diagnostic. BRAIN: CSF spaces: Basal cisterns are patent. No extra-axial fluid collections. Ventricles are normal in size and shape. Brain: No intracranial hematoma collections, mass, or mass effect. Rashid-white matter interface appears preserved. Skull and face: Calvarium and facial bones appear intact, without suspicious lesions. Orbits appear normal. Sinuses: Sinuses and mastoids are clear. HEAD CT ANGIOGRAPHY: Anterior circulation: Intracranial internal carotid arteries are normal in size and appear patent bilaterally. There is mild atherosclerotic calcification along the cavernous segments of the internal carotid arteries. The paired anterior cerebral arteries appear patent bilaterally. The anterior communicating artery also appears patent. The middle cerebral arteries appear patent bilaterally. No high-grade stenosis, occlusion, or filling defects. No cerebral aneurysms identified. Posterior circulation: The posterior cerebral arteries appears patent bilaterally. The basilar artery is patent and supplied by the right vertebral artery. The left vertebral artery appears occluded. NECK CT ANGIOGRAPHY: Carotid system: The great vessels demonstrate a conventional anatomy as they arise from the aortic arch. The origins of the common carotid arteries appear patent. The common carotid arteries demonstrate normal caliber and courses. There is mild calcified plaque in the carotid bulbs with narrowing of less than 50%. The internal carotid arteries demonstrate normal calibers and courses. Posterior circulation: The left vertebral artery appears occluded along its course. There are small collateral vessels noted. The right vertebral artery is patent along its course and supplies a patent basilar artery. Soft tissues: Visualized neck soft tissues demonstrate no suspicious abnormalities. Bones: No suspicious bony lesions. Visualized cervical spine demonstrates straightening of the cervical lordosis. There is multilevel degenerative disc disease and facet joint arthropathy. IMPRESSION: 1. No high-grade stenosis or occlusion of the central intracranial arteries. 2. 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 3. Mild narrowing of less than 50% in the carotid bulbs. Findings discussed with Dr. Veras on 12/28/2022 at 8:18 p.m.. Any quantitative measurements of stenosis were performed using NASCET criteria. Dictated by: Orlando Stack M.D. on 12/28/2022 at 20:12 Approved by: Orlando Stack M.D. on 12/28/2022 at 20:20
--- NOTE | 2022-12-28 19:08 | DI.CT.S_ITS ---
PROCEDURE: CT STROKE INDICATIONS: L Side paralysis TECHNIQUE: Noncontrast 4.5 mm thick angled axial sections acquired from the foramen magnum to the vertex, with coronal reformats. For radiation dose reduction, the following was used: automated exposure control, adjustment of mA and/or kV according to patient size. COMPARISON: [facility], MR, MR BRAIN WITH/WITHOUT CONTRAST, 04/05/2021, 8:36. [facility], CT, CT ANGIO HEAD AND NECK, 12/28/2018, 19:42. [facility], CT, CT HEAD TPA, 12/28/2018, 19:36. FINDINGS: Image quality: Excellent. CSF spaces: Basal cisterns are patent. No extra-axial fluid collections. The ventricles are symmetric in size and shape. Brain: No intracranial bleeds or masses. There is cerebral volume loss for age, with resultant ventricular and sulcal prominence. There are periventricular and deep white matter chronic small vessel ischemic changes. There is intracranial internal carotid artery atherosclerosis. Skull and face: Calvarium and visualized facial bones appear intact, without suspicious lesions. Sinuses: Visualized sinuses and mastoids are clear. IMPRESSION: No acute intracranial hemorrhage is seen. No acute intracranial process is seen. If there is strong clinical suspicion for an acute stroke, please consider a brain MRI for further evaluation, as it is more sensitive (assuming that there is no contraindication to MRI). Note: Case discussed by telephone with Dr. Veras at 6:25 p.m. [place] time on December 28, 2022. This study fulfills neurological imaging criteria for inclusion or exclusion of acute stroke therapies based on available published neurological guidelines. Dictated by: Mahendra Snow M.D. on 12/28/2022 at 18:26 Approved by: Mahendra Snow M.D. on 12/28/2022 at 18:27
[2022-12-28 19:18] LABS: Add Manual Diff / Slide Review NO; Basophils Absolute Auto 0 /uL (0-100); Basophils Percent Auto 0.3 % (0-2); Eosinophils Absolute Auto 200 /uL (0-450); Eosinophils Percent Auto 1.1 % (2-4); Hematocrit 38.2 % (41-53); Hemoglobin 12.8 g/dL (13.5-17.5); Lymphocytes Absolute Auto 700 /uL (1100-4500); Lymphocytes Percent Auto 5.1 % (25-40); Mean Corpuscular HGB Conc 33.5 % (30-36); Mean Corpuscular Hemoglobin 29.3 PG (26-34); Mean Corpuscular Volume 87.5 fL (80-100); Monocytes Absolute Auto 900 /uL (0-900); Monocytes Percent Auto 6.3 % (3-14); Neutrophils Absolute Auto 11900 /uL (1500-7000); Neutrophils Percent Auto 87.2 % (50-75); Platelet Count 221 X10^3/uL (150-400); Red Blood Cell Count 4.37 X10^6/uL (4.5-5.9); Red Cell Distribution Width 15.6 % (11.6-14.8); White Blood Cell Count 13.7 X10^3/uL (4.5-11.0)
--- NOTE | 2022-12-28 19:20 | ED_ITS ---
HPI - Neuro Symptoms/Deficit <Ruben Veras DO - Last Filed: 12/30/22 02:14> General Chief Complaint: Neuro Symptoms/Deficit Stated Complaint: Code Stroke Time Seen by Provider: 12/28/22 19:07 Source: patient and EMS Mode of arrival: EMS History of Present Illness HPI Narrative: 62-year-old male former smoker with history of chronic kidney disease, neurogenic bladder, MS, diabetes is nonmobile at baseline but gets around in his relatively active in his motorized wheelchair presents at the request of his shelter facility who states he has had fever and shaking chills over the day. He is noted by EMS to have slurring of speech and right side upper and lower extremity weakness that likely perhaps worsened sometime between 4 and 5:00 a.m. but it is unclear, this was not part of her initial discussion. He was seen and evaluated by myself about 1 month ago and was transferred to due to an obstructive uropathy and acute UTI with sepsis. He is activated as a code stroke and taken directly to CT Patient states that his Left side is always extremely weak and this is baseline for him as is the speech. He states that he noticed weakness in his right leg earlier today when he was out on an errand at 1-2pm. He states he got back to his home and they put him down for a nap at 330p and he couldn't use his leg at that time. Related Data Home Medications Medication Instructions Recorded Confirmed aspirin 81 mg tablet 81 mg PO QAM 12/30/20 12/29/22 bismuth subsalicylate 262 mg/15 mL 262 mg PO Q6HR PRN Loose Stool 12/30/20 12/29/22 oral suspension (Pepto-Bismol) docusate sodium 100 mg capsule 200 mg PO BID 12/30/20 12/29/22 ferrous sulfate 325 mg (65 mg 325 mg PO QAM 12/30/20 12/29/22 iron) capsule,extended release pantoprazole 40 mg tablet,delayed 40 mg PO QAM 12/30/20 12/29/22 release atorvastatin 20 mg tablet 20 mg PO BEDTIME 04/12/21 12/29/22 insulin glargine 100 unit/mL (3 30 unit SUBCUT QPM 04/12/21 12/29/22 mL) subcutaneous pen (Lantus Solostar U-100 Insulin) nystatin 100,000 unit/gram topical 1 applic topical BID 04/12/21 12/29/22 ointment torsemide 20 mg tablet 20 mg PO QAM 04/12/21 12/29/22 loperamide 2 mg capsule 2 mg PO BID PRN Diarrhea 05/10/21 12/29/22 polyethylene glycol 3350 17 gram 17 g PO QAM 05/10/21 12/29/22 oral powder packet acetaminophen 500 mg tablet 1,000 mg PO Q4HR PRN mild pain/ 11/13/22 12/29/22 fever calcium carbonate 200 mg calcium 400 mg PO TID 11/13/22 12/29/22 (500 mg) chewable tablet (Calcium Antacid) hydrocodone 5 mg-acetaminophen 325 1 tab PO Q4HR PRN Pain (Scale 11/13/22 12/29/22 mg tablet Score 4-6) potassium chloride 10 mEq 10 meq PO QAM 11/13/22 12/29/22 tablet,extended release ondansetron HCl 4 mg tablet 4 mg PO Q8HR PRN Nausea 12/29/22 12/29/22 Allergies Allergy/AdvReac Type Severity Reaction Status Date / Time No Known Drug Allergies Allergy Verified 12/29/22 21:24 Review of Systems <Ruben Veras DO - Last Filed: 12/30/22 02:14> Review of Systems Narrative: GENERAL: See HPI HEENT: Denies sinus pain, ear pain, sore throat, difficulty swallowing, dizziness. RESPIRATORY: Denies dyspnea, cough, wheezing, hemoptysis, sputum. CARDIOVASCULAR: Denies chest pain, palpitations, orthopnea, edema, GASTROINTESTINAL: Denies nausea, vomiting, abdominal pain, diarrhea, constipation, melena. : Denies dysuria, frequency, incontinence, hematuria, urinary retention. MUSCULOSKELETAL: denies weakness, joint pain, or bony pain SKIN: Denies rash, skin lesions, or other NEUROLOGIC: See HPI PSYCHIATRIC: No concerning psychosocial issues. 12 point review of systems is negative except for those stated above Patient History <Ruben Veras DO - Last Filed: 12/30/22 02:14> Medical History Chronic anemia Chronic kidney disease Chronic kidney disease, stage IV (severe) History of neurogenic bladder Hyperlipidemia Hypertension Multiple sclerosis Neurogenic bladder Recurrent UTI (urinary tract infection) Stroke Type 2 diabetes mellitus Surgical History History of circumcision History of knee replacement Hx of hernia repair Family History Grandfather Coronary artery disease Brother Hyperlipidemia Hypertension Social History marital status: unmarried,single number of children: 1 household members: caregiver Smoking Status: Former smoker alcohol intake: former substance use type: does not use Smoking Status: Former smoker alcohol intake frequency: 0-2 drinks per day Substance Use Type: does not use Exam <Ruben Veras DO - Last Filed: 12/30/22 02:14> Narrative Exam Narrative: GENERAL: [62] year old patient appears stated age. Well-developed patient, in mild distress. HEAD: Atraumatic. Normocephalic. EYES: Pupils equal round and reactive. Extraocular motions intact. No scleral icterus. No injection or drainage. ENT: Nose without bleeding, purulent drainage. Throat without erythema, tonsillar hypertrophy or exudate. Airway patent. NECK: Trachea midline. Non tender CARDIOVASCULAR: Regular rate and rhythm without murmurs, gallops, or rubs. RESPIRATORY: Clear to auscultation. Breath sounds equal bilaterally. No wheezes, rales, or rhonchi. GASTROINTESTINAL: Abdomen soft, non-tender, nondistended. EXTREMITIES: No edema or joint tenderness. BACK: Nontender without deformity or crepitance. No flank tenderness. NEURO: AOx3. Slurring of speech is at patient's baseline, left upper and lower extremity weakness, difficult to lift from cart is his baseline. RLE movement, but not off cart SKIN: No rash or erythema of visible areas Initial Vital Signs Initial Vital Signs: Vital Signs Temperature 101.4 F H 12/28/22 19:13 Pulse Rate 106 H 12/28/22 19:13 Respiratory Rate 20 12/28/22 19:13 Blood Pressure 116/76 12/28/22 19:13 Pulse Oximetry 99 12/28/22 19:13 Oxygen Delivery Method Room Air 12/28/22 19:13 <Alesia Fugn DO - Last Filed: 12/30/22 07:12> Initial Vital Signs Initial Vital Signs: Vital Signs Temperature 101.4 F H 12/28/22 19:13 Pulse Rate 106 H 12/28/22 19:13 Respiratory Rate 20 12/28/22 19:13 Blood Pressure 116/76 12/28/22 19:13 Pulse Oximetry 99 12/28/22 19:13 Oxygen Delivery Method Room Air 12/28/22 19:13 Course <Ruben Veras, - Last Filed: 12/30/22 02:14> Orders Ordered: Discontinued Medications Acetaminophen (Acetaminophen 325 Mg Tablet) 650 mg PO NOW ONE Stop: 12/28/22 21:03 Last Admin: 12/28/22 21:07 Dose: 650 mg Documented By: DEBRA Docusate Sodium (Docusate 100 Mg Capsule) 200 mg PO NOW ONE Stop: 12/29/22 12:17 Last Admin: 12/29/22 12:51 Dose: 200 mg Documented By: RAÚL Ceftriaxone Sodium 2,000 mg/ (Sodium Chloride) 100 mls @ 200 mls/hr IV NOW ONE Stop: 12/28/22 21:33 Last Infusion: 12/28/22 22:37 Dose: 0 mls/hr Documented By: Admin: 12/28/22 21:59 Dose: 200 mls/hr Documented By: DEBRA Sodium Chloride (Normal Saline 0.9%) 1,983 mls @ 661 mls/hr 30 ml/kg infuse over 3 hr (1983 ml) IV NOW ONE Stop: 12/29/22 01:54 Last Infusion: 12/29/22 02:51 Dose: 0 mls/hr Documented By: Admin: 12/28/22 23:34 Dose: 661 mls/hr Documented By: DEBRA Acetaminophen (Ofirmev) 1,000 mg in 100 mls @ 400 mls/hr IV NOW ONE Stop: 12/29/22 05:27 Last Infusion: 12/29/22 05:53 Dose: 0 mls/hr Documented By: Admin: 12/29/22 05:18 Dose: 400 mls/hr Documented By: CORRIE Sodium Chloride (Normal Saline 0.9%) 1,000 mls @ 150 mls/hr IV CONT AMINATA Last Admin: 12/30/22 04:09 Dose: 150 mls/hr Documented By: Infusion: 12/30/22 04:09 Dose: 150 mls/hr Documented By: Admin: 12/29/22 22:20 Dose: 150 mls/hr Documented By: Infusion: 12/29/22 22:20 Dose: 150 mls/hr Documented By: Admin: 12/29/22 15:47 Dose: 150 mls/hr Documented By: Infusion: 12/29/22 15:08 Dose: 150 mls/hr Documented By: Admin: 12/29/22 08:27 Dose: 150 mls/hr Documented By: CELINA Acetaminophen (Ofirmev) 1,000 mg in 100 mls @ 400 mls/hr IV NOW ONE Stop: 12/29/22 15:12 Last Infusion: 12/29/22 15:49 Dose: 0 mls/hr Documented By: Admin: 12/29/22 15:32 Dose: 400 mls/hr Documented By: CELINA Ceftriaxone Sodium 2,000 mg/ (Sodium Chloride) 100 mls @ 200 mls/hr IV NOW ONE Stop: 12/29/22 21:01 Last Infusion: 12/29/22 22:47 Dose: 0 mls/hr Documented By: Admin: 12/29/22 20:44 Dose: 200 mls/hr Documented By: CORRIE Acetaminophen (Ofirmev) 1,000 mg in 100 mls @ 400 mls/hr IV NOW ONE Stop: 12/30/22 02:13 Last Infusion: 12/30/22 03:09 Dose: 0 mls/hr Documented By: Admin: 12/30/22 02:03 Dose: 400 mls/hr Documented By: CORRIE Insulin Glargine (Insulin Glargine 100 Unit/Ml 3ml Pen) 30 unit SUBCUT BEDTIME [facility] Last Admin: 12/29/22 23:03 Dose: 30 unit Documented By: CORRIE Co-signed By: VAMSI Polyethylene Glycol (Polyethylene Glycol 3350 17 Gm Powd.Pack) 17 gm PO NOW ONE Stop: 12/29/22 12:17 Last Admin: 12/29/22 12:51 Dose: 17 gm Documented By: RAÚL Vital Signs Vital signs: Vital Signs - 8 hr 12/29/22 23:15 12/29/22 23:15 12/29/22 23:30 Temperature 100.2 F H Pulse Rate 88 Respiratory Rate Blood Pressure 131/64 123/58 L Pulse Oximetry 98 08/19/23 23:30 12/29/22 23:45 12/29/22 23:45 Temperature 100.4 F H 100.4 F H Pulse Rate 89 89 Respiratory Rate Blood Pressure 120/59 L Pulse Oximetry 95 97 12/30/22 00:00 12/30/22 00:00 12/30/22 00:15 Temperature 100.2 F H 100.2 F H Pulse Rate 91 H 89 Respiratory Rate Blood Pressure 117/62 Pulse Oximetry 98 97 12/30/22 00:15 12/30/22 00:30 12/30/22 00:30 Temperature 100.2 F H Pulse Rate 92 H Respiratory Rate Blood Pressure 121/61 111/56 L Pulse Oximetry 96 12/30/22 00:45 12/30/22 00:45 12/30/22 01:00 Temperature 100.4 F H Pulse Rate 92 H Respiratory Rate Blood Pressure 118/57 L 113/58 L Pulse Oximetry 97 12/30/22 01:00 12/30/22 01:15 12/30/22 01:15 Temperature 100.2 F H 100.2 F H Pulse Rate 86 85 Respiratory Rate Blood Pressure 113/57 L Pulse Oximetry 96 96 12/30/22 01:30 12/30/22 01:30 12/30/22 01:45 Temperature 100.2 F H Pulse Rate 84 Respiratory Rate Blood Pressure 106/54 L 108/59 L Pulse Oximetry 95 12/30/22 01:45 12/30/22 02:00 12/30/22 02:00 Temperature 100.0 F H 100.0 F H Pulse Rate 82 85 Respiratory Rate Blood Pressure 112/59 L Pulse Oximetry 96 96 12/30/22 02:15 12/30/22 02:15 12/30/22 02:30 Temperature 100.0 F H Pulse Rate 86 Respiratory Rate Blood Pressure 111/59 L 109/57 L Pulse Oximetry 96 12/30/22 02:30 12/30/22 02:45 12/30/22 02:45 Temperature 100.0 F H 100.0 F H Pulse Rate 85 83 Respiratory Rate 20 Blood Pressure 114/58 L Pulse Oximetry 95 94 12/30/22 03:00 12/30/22 03:00 12/30/22 03:15 Temperature 99.9 F H Pulse Rate 82 Respiratory Rate Blood Pressure 110/57 L 104/56 L Pulse Oximetry 94 12/30/22 03:15 12/30/22 03:30 12/30/22 03:30 Temperature 99.7 F H 99.5 F Pulse Rate 83 83 Respiratory Rate Blood Pressure 110/56 L Pulse Oximetry 93 94 12/30/22 03:45 12/30/22 03:45 12/30/22 04:00 Temperature 99.3 F Pulse Rate 81 Respiratory Rate Blood Pressure 103/56 L 100/57 L Pulse Oximetry 94 12/30/22 04:00 Temperature 99.1 F Pulse Rate 81 Respiratory Rate Blood Pressure Pulse Oximetry 94 <Alesia Fung DO - Last Filed: 12/30/22 07:12> Orders Ordered: Discontinued Medications Acetaminophen (Acetaminophen 325 Mg Tablet) 650 mg PO NOW ONE Stop: 12/28/22 21:03 Last Admin: 12/28/22 21:07 Dose: 650 mg Documented By: DEBRA Docusate Sodium (Docusate 100 Mg Capsule) 200 mg PO NOW ONE Stop: 12/29/22 12:17 Last Admin: 12/29/22 12:51 Dose: 200 mg Documented By: RB Ceftriaxone Sodium 2,000 mg/ (Sodium Chloride) 100 mls @ 200 mls/hr IV NOW ONE Stop: 12/28/22 21:33 Last Infusion: 12/28/22 22:37 Dose: 0 mls/hr Documented By: Admin: 12/28/22 21:59 Dose: 200 mls/hr Documented By: DEBRA Sodium Chloride (Normal Saline 0.9%) 1,983 mls @ 661 mls/hr 30 ml/kg infuse over 3 hr (1983 ml) IV NOW ONE Stop: 12/29/22 01:54 Last Infusion: 12/29/22 02:51 Dose: 0 mls/hr Documented By: Admin: 12/28/22 23:34 Dose: 661 mls/hr Documented By: DEBRA Acetaminophen (Ofirmev) 1,000 mg in 100 mls @ 400 mls/hr IV NOW ONE Stop: 12/29/22 05:27 Last Infusion: 12/29/22 05:53 Dose: 0 mls/hr Documented By: Admin: 12/29/22 05:18 Dose: 400 mls/hr Documented By: CORRIE Sodium Chloride (Normal Saline 0.9%) 1,000 mls @ 150 mls/hr IV CONT [facility]INATA Last Admin: 12/30/22 04:09 Dose: 150 mls/hr Documented By: Infusion: 12/30/22 04:09 Dose: 150 mls/hr Documented By: Admin: 12/29/22 22:20 Dose: 150 mls/hr Documented By: Infusion: 12/29/22 22:20 Dose: 150 mls/hr Documented By: Admin: 12/29/22 15:47 Dose: 150 mls/hr Documented By: Infusion: 12/29/22 15:08 Dose: 150 mls/hr Documented By: Admin: 12/29/22 08:27 Dose: 150 mls/hr Documented By: CELINA Acetaminophen (Ofirmev) 1,000 mg in 100 mls @ 400 mls/hr IV NOW ONE Stop: 12/29/22 15:12 Last Infusion: 12/29/22 15:49 Dose: 0 mls/hr Documented By: Admin: 12/29/22 15:32 Dose: 400 mls/hr Documented By: CELINA Ceftriaxone Sodium 2,000 mg/ (Sodium Chloride) 100 mls @ 200 mls/hr IV NOW ONE Stop: 12/29/22 21:01 Last Infusion: 12/29/22 22:47 Dose: 0 mls/hr Documented By: Admin: 12/29/22 20:44 Dose: 200 mls/hr Documented By: CORRIE Acetaminophen (Ofirmev) 1,000 mg in 100 mls @ 400 mls/hr IV NOW ONE Stop: 12/30/22 02:13 Last Infusion: 12/30/22 03:09 Dose: 0 mls/hr Documented By: Admin: 12/30/22 02:03 Dose: 400 mls/hr Documented By: CORRIE Insulin Glargine (Insulin Glargine 100 Unit/Ml 3ml Pen) 30 unit SUBCUT BEDTIME [facility] Last Admin: 12/29/22 23:03 Dose: 30 unit Documented By: CORRIE Co-signed By: VAMSI Polyethylene Glycol (Polyethylene Glycol 3350 17 Gm Powd.Pack) 17 gm PO NOW ONE Stop: 12/29/22 12:17 Last Admin: 12/29/22 12:51 Dose: 17 gm Documented By: RB Vital Signs Vital signs: Vital Signs - 8 hr 08/19/23 23:15 12/29/22 23:15 12/29/22 23:30 Temperature 100.2 F H Pulse Rate 88 Respiratory Rate Blood Pressure 131/64 123/58 L Pulse Oximetry 98 12/29/22 23:30 12/29/22 23:45 12/29/22 23:45 Temperature 100.4 F H 100.4 F H Pulse Rate 89 89 Respiratory Rate Blood Pressure 120/59 L Pulse Oximetry 95 97 12/30/22 00:00 12/30/22 00:00 12/30/22 00:15 Temperature 100.2 F H 100.2 F H Pulse Rate 91 H 89 Respiratory Rate Blood Pressure 117/62 Pulse Oximetry 98 97 12/30/22 00:15 12/30/22 00:30 12/30/22 00:30 Temperature 100.2 F H Pulse Rate 92 H Respiratory Rate Blood Pressure 121/61 111/56 L Pulse Oximetry 96 12/30/22 00:45 12/30/22 00:45 12/30/22 01:00 Temperature 100.4 F H Pulse Rate 92 H Respiratory Rate Blood Pressure 118/57 L 113/58 L Pulse Oximetry 97 12/30/22 01:00 12/30/22 01:15 12/30/22 01:15 Temperature 100.2 F H 100.2 F H Pulse Rate 86 85 Respiratory Rate Blood Pressure 113/57 L Pulse Oximetry 96 96 12/30/22 01:30 12/30/22 01:30 12/30/22 01:45 Temperature 100.2 F H Pulse Rate 84 Respiratory Rate Blood Pressure 106/54 L 108/59 L Pulse Oximetry 95 12/30/22 01:45 12/30/22 02:00 12/30/22 02:00 Temperature 100.0 F H 100.0 F H Pulse Rate 82 85 Respiratory Rate Blood Pressure 112/59 L Pulse Oximetry 96 96 12/30/22 02:15 12/30/22 02:15 12/30/22 02:30 Temperature 100.0 F H Pulse Rate 86 Respiratory Rate Blood Pressure 111/59 L 109/57 L Pulse Oximetry 96 12/30/22 02:30 12/30/22 02:45 12/30/22 02:45 Temperature 100.0 F H 100.0 F H Pulse Rate 85 83 Respiratory Rate 20 Blood Pressure 114/58 L Pulse Oximetry 95 94 12/30/22 03:00 12/30/22 03:00 12/30/22 03:15 Temperature 99.9 F H Pulse Rate 82 Respiratory Rate Blood Pressure 110/57 L 104/56 L Pulse Oximetry 94 12/30/22 03:15 12/30/22 03:30 12/30/22 03:30 Temperature 99.7 F H 99.5 F Pulse Rate 83 83 Respiratory Rate Blood Pressure 110/56 L Pulse Oximetry 93 94 12/30/22 03:45 12/30/22 03:45 12/30/22 04:00 Temperature 99.3 F Pulse Rate 81 Respiratory Rate Blood Pressure 103/56 L 100/57 L Pulse Oximetry 94 12/30/22 04:00 Temperature 99.1 F Pulse Rate 81 Respiratory Rate Blood Pressure Pulse Oximetry 94 MDM - Neuro Symptoms/Deficit <Ruben eVras DO - Last Filed: 12/30/22 02:14> Lab Data 12/29/22 08:40 12/29/22 08:40 Labs: Lab Results 12/28/22 12/28/22 12/28/22 Range/Units 19:05 19:05 19:05 WBC 13.7 H (4.5-11.0) X10^3/uL RBC 4.37 L (4.5-5.9) X10^6/uL Hgb 12.8 L (13.5-17.5) g/dL Hct 38.2 L (41-53) % MCV 87.5 (80-100) fL MCH 29.3 (26-34) PG MCHC 33.5 (30-36) % RDW 15.6 H (11.6-14.8) % Plt Count 221 (150-400) X10^3/uL Neut % (Auto) 87.2 H (50-75) % Lymph % (Auto) 5.1 L (25-40) % [place] % (Auto) 6.3 (3-14) % Eos % (Auto) 1.1 L (2-4) % Baso % (Auto) 0.3 (0-2) % Neut # (Auto) 61295 H (0659-6243) /uL Lymph # (Auto) 700 L (0651-0003) /uL [place] # (Auto) 900 (0-900) /uL Eos # (Auto) 200 (0-450) /uL Baso # (Auto) 0 (0-100) /uL PT 12.9 H (10.1-12.7) SECONDS INR 1.1 (0.9-1.3) APTT 38 H (26-36) SECONDS Sodium 136 L (137-145) mmol/L Potassium 4.6 (3.4-5.1) mmol/L Chloride 103 (98-107) mmol/L Carbon Dioxide 24 (22-32) mmol/L BUN 44 H (9-20) mg/dL Creatinine 2.41 H (0.66-1.25) mg/dL Estimated GFR 29 L (>60) mL/min BUN/Creatinine Ratio 18.3 (6-22) Glucose 243 H (80-110) mg/dL Lactate (0.7-2.1) mmol/L Calcium 8.6 (8.4-10.2) mg/dL Total Bilirubin 0.4 (0.2-1.3) mg/dL AST 18 (17-59) IU/L ALT 16 (<50) IU/L Alkaline Phosphatase 91 (38-126) U/L Total Creatine Kinase 23 L (55-170) U/L Troponin I < 0.012 (0.01-0.034) ng/mL NT-Pro-B Natriuret Pep (<125) pg/mL Total Protein 6.5 (6.3-8.2) g/dL Albumin 3.6 (3.5-5.0) g/dL Globulin 2.9 (1.7-4.1) g/dL Albumin/Globulin Ratio 1.2 (1.0-2.8) Procalcitonin (<0.5) ng/mL Urine Color Urine Appearance Urine pH (4.5-8.0) Ur Specific [place] (1.000-1.035) Urine Protein (Negative) Urine Glucose (UA) (Negative) g/dL Urine Ketones (NEGATIVE) Urine Occult Blood (Negative) Urine Nitrate (Negative) Urine Bilirubin (NEGATIVE) Urine Urobilinogen (0.2) E.U./dL Ur Leukocyte Esterase (NEGATIVE) Urine RBC (0-5/HPF) Urine WBC (0-5/HPF) Ur Squamous Epith Cells (0-5/HPF) Ur Transition Epith Cell (0-5/HPF) Urine Bacteria (None) Ur Culture Indicated? U Opiates 300ng/mL cut (Negative) Ur Oxycodone Screen (Negative) Urine Methadone Screen (Negative) Ur Barbiturates Screen (Negative) U Tricyclic Antidepress (Negative) Ur Phencyclidine Scrn (Negative) Ur Amphetamines Screen (Negative) U Methamphetamines Scrn (Negative) Ur MDMA Scrn (Ecstasy) (Negative) U Benzodiazepines Scrn (Negative) Urine Cocaine Screen (Negative) U Marijuana (THC) Screen (Negative) Ethyl Alcohol < 10 ( - 10) mg/dL SARS-CoV-2 (PCR) (Negative) 12/28/22 12/28/22 12/28/22 Range/Units 19:05 19:05 19:05 WBC (4.5-11.0) X10^3/uL RBC (4.5-5.9) X10^6/uL Hgb (13.5-17.5) g/dL Hct (41-53) % MCV (80-100) fL MCH (26-34) PG MCHC (30-36) % RDW (11.6-14.8) % Plt Count (150-400) X10^3/uL Neut % (Auto) (50-75) % Lymph % (Auto) (25-40) % [place] % (Auto) (3-14) % Eos % (Auto) (2-4) % Baso % (Auto) (0-2) % Neut # (Auto) (2748-3892) /uL Lymph # (Auto) (3777-7507) /uL [place] # (Auto) (0-900) /uL Eos # (Auto) (0-450) /uL Baso # (Auto) (0-100) /uL PT (10.1-12.7) SECONDS INR (0.9-1.3) APTT (26-36) SECONDS Sodium (137-145) mmol/L Potassium (3.4-5.1) mmol/L Chloride (98-107) mmol/L Carbon Dioxide (22-32) mmol/L BUN (9-20) mg/dL Creatinine (0.66-1.25) mg/dL Estimated GFR (>60) mL/min BUN/Creatinine Ratio (6-22) Glucose (80-110) mg/dL Lactate 1.5 (0.7-2.1) mmol/L Calcium (8.4-10.2) mg/dL Total Bilirubin (0.2-1.3) mg/dL AST (17-59) IU/L ALT (<50) IU/L Alkaline Phosphatase (38-126) U/L Total Creatine Kinase (55-170) U/L Troponin I (0.01-0.034) ng/mL NT-Pro-B Natriuret Pep 1560 H (<125) pg/mL Total Protein (6.3-8.2) g/dL Albumin (3.5-5.0) g/dL Globulin (1.7-4.1) g/dL Albumin/Globulin Ratio (1.0-2.8) Procalcitonin 0.43 (<0.5) ng/mL Urine Color Urine Appearance Urine pH (4.5-8.0) Ur Specific [place] (1.000-1.035) Urine Protein (Negative) Urine Glucose (UA) (Negative) g/dL Urine Ketones (NEGATIVE) Urine Occult Blood (Negative) Urine Nitrate (Negative) Urine Bilirubin (NEGATIVE) Urine Urobilinogen (0.2) E.U./dL Ur Leukocyte Esterase (NEGATIVE) Urine RBC (0-5/HPF) Urine WBC (0-5/HPF) Ur Squamous Epith Cells (0-5/HPF) Ur Transition Epith Cell (0-5/HPF) Urine Bacteria (None) Ur Culture Indicated? U Opiates 300ng/mL cut (Negative) Ur Oxycodone Screen (Negative) Urine Methadone Screen (Negative) Ur Barbiturates Screen (Negative) U Tricyclic Antidepress (Negative) Ur Phencyclidine Scrn (Negative) Ur Amphetamines Screen (Negative) U Methamphetamines Scrn (Negative) Ur MDMA Scrn (Ecstasy) (Negative) U Benzodiazepines Scrn (Negative) Urine Cocaine Screen (Negative) U Marijuana (THC) Screen (Negative) Ethyl Alcohol ( - 10) mg/dL SARS-CoV-2 (PCR) (Negative) 12/28/22 12/28/22 12/28/22 Range/Units 19:51 20:07 20:33 WBC (4.5-11.0) X10^3/uL RBC (4.5-5.9) X10^6/uL Hgb (13.5-17.5) g/dL Hct (41-53) % MCV (80-100) fL MCH (26-34) PG MCHC (30-36) % RDW (11.6-14.8) % Plt Count (150-400) X10^3/uL Neut % (Auto) (50-75) % Lymph % (Auto) (25-40) % [place] % (Auto) (3-14) % Eos % (Auto) (2-4) % Baso % (Auto) (0-2) % Neut # (Auto) (6418-0602) /uL Lymph # (Auto) (7957-8692) /uL [place] # (Auto) (0-900) /uL Eos # (Auto) (0-450) /uL Baso # (Auto) (0-100) /uL PT (10.1-12.7) SECONDS INR (0.9-1.3) APTT (26-36) SECONDS Sodium (137-145) mmol/L Potassium (3.4-5.1) mmol/L Chloride (98-107) mmol/L Carbon Dioxide (22-32) mmol/L BUN (9-20) mg/dL Creatinine (0.66-1.25) mg/dL Estimated GFR (>60) mL/min BUN/Creatinine Ratio (6-22) Glucose (80-110) mg/dL Lactate (0.7-2.1) mmol/L Calcium (8.4-10.2) mg/dL Total Bilirubin (0.2-1.3) mg/dL AST (17-59) IU/L ALT (<50) IU/L Alkaline Phosphatase (38-126) U/L Total Creatine Kinase (55-170) U/L Troponin I (0.01-0.034) ng/mL NT-Pro-B Natriuret Pep (<125) pg/mL Total Protein (6.3-8.2) g/dL Albumin (3.5-5.0) g/dL Globulin (1.7-4.1) g/dL Albumin/Globulin Ratio (1.0-2.8) Procalcitonin (<0.5) ng/mL Urine Color Yellow Urine Appearance Cloudy Urine pH 7.5 (4.5-8.0) Ur Specific [place] 1.010 (1.000-1.035) Urine Protein 2+ H (Negative) Urine Glucose (UA) Trace H (Negative) g/dL Urine Ketones Negative (NEGATIVE) Urine Occult Blood 3+ H (Negative) Urine Nitrate Negative (Negative) Urine Bilirubin Negative (NEGATIVE) Urine Urobilinogen 0.2 (0.2) E.U./dL Ur Leukocyte Esterase 3+ H (NEGATIVE) Urine RBC 30-100/hpf H (0-5/HPF) Urine WBC 30-100/hpf H (0-5/HPF) Ur Squamous Epith Cells 0-1 /hpf (0-5/HPF) Ur Transition Epith Cell 0-1/hpf (0-5/HPF) Urine Bacteria Many (>30) H (None) Ur Culture Indicated? Specimen cultured U Opiates 300ng/mL cut Negative (Negative) Ur Oxycodone Screen Negative (Negative) Urine Methadone Screen Negative (Negative) Ur Barbiturates Screen Negative (Negative) U Tricyclic Antidepress Negative (Negative) Ur Phencyclidine Scrn Negative (Negative) Ur Amphetamines Screen Negative (Negative) U Methamphetamines Scrn Negative (Negative) Ur MDMA Scrn (Ecstasy) Negative (Negative) U Benzodiazepines Scrn Negative (Negative) Urine Cocaine Screen Negative (Negative) U Marijuana (THC) Screen Negative (Negative) Ethyl Alcohol ( - 10) mg/dL SARS-CoV-2 (PCR) Negative (Negative) 12/29/22 12/29/22 12/29/22 Range/Units 08:40 08:40 08:40 WBC 13.1 H (4.5-11.0) X10^3/uL RBC 3.95 L (4.5-5.9) X10^6/uL Hgb 11.6 L (13.5-17.5) g/dL Hct 34.7 L (41-53) % MCV 87.8 (80-100) fL MCH 29.3 (26-34) PG MCHC 33.4 (30-36) % RDW 15.4 H (11.6-14.8) % Plt Count 185 (150-400) X10^3/uL Neut % (Auto) 85.5 H (50-75) % Lymph % (Auto) 5.4 L (25-40) % [place] % (Auto) 8.5 (3-14) % Eos % (Auto) 0.3 L (2-4) % Baso % (Auto) 0.3 (0-2) % Neut # (Auto) 11836 H (7142-8030) /uL Lymph # (Auto) 700 L (7078-1119) /uL [place] # (Auto) 1100 H (0-900) /uL Eos # (Auto) 0 (0-450) /uL Baso # (Auto) 0 (0-100) /uL PT (10.1-12.7) SECONDS INR (0.9-1.3) APTT (26-36) SECONDS Sodium Cancelled 135 L (137-145) mmol/L Potassium Cancelled 4.3 (3.4-5.1) mmol/L Chloride Cancelled 105 (98-107) mmol/L Carbon Dioxide Cancelled 22 (22-32) mmol/L BUN Cancelled 43 H (9-20) mg/dL Creatinine Cancelled 2.53 H (0.66-1.25) mg/dL Estimated GFR Cancelled 28 L (>60) mL/min BUN/Creatinine Ratio Cancelled 17.0 (6-22) Glucose Cancelled 266 H (80-110) mg/dL Lactate (0.7-2.1) mmol/L Calcium Cancelled 7.4 L (8.4-10.2) mg/dL Total Bilirubin 0.4 (0.2-1.3) mg/dL AST 17 (17-59) IU/L ALT 16 (<50) IU/L Alkaline Phosphatase 85 (38-126) U/L Total Creatine Kinase (55-170) U/L Troponin I (0.01-0.034) ng/mL NT-Pro-B Natriuret Pep (<125) pg/mL Total Protein 5.7 L (6.3-8.2) g/dL Albumin 3.1 L (3.5-5.0) g/dL Globulin 2.6 (1.7-4.1) g/dL Albumin/Globulin Ratio 1.2 (1.0-2.8) Procalcitonin 0.95 H (<0.5) ng/mL Urine Color Urine Appearance Urine pH (4.5-8.0) Ur Specific [place] (1.000-1.035) Urine Protein (Negative) Urine Glucose (UA) (Negative) g/dL Urine Ketones (NEGATIVE) Urine Occult Blood (Negative) Urine Nitrate (Negative) Urine Bilirubin (NEGATIVE) Urine Urobilinogen (0.2) E.U./dL Ur Leukocyte Esterase (NEGATIVE) Urine RBC (0-5/HPF) Urine WBC (0-5/HPF) Ur Squamous Epith Cells (0-5/HPF) Ur Transition Epith Cell (0-5/HPF) Urine Bacteria (None) Ur Culture Indicated? U Opiates 300ng/mL cut (Negative) Ur Oxycodone Screen (Negative) Urine Methadone Screen (Negative) Ur Barbiturates Screen (Negative) U Tricyclic Antidepress (Negative) Ur Phencyclidine Scrn (Negative) Ur Amphetamines Screen (Negative) U Methamphetamines Scrn (Negative) Ur MDMA Scrn (Ecstasy) (Negative) U Benzodiazepines Scrn (Negative) Urine Cocaine Screen (Negative) U Marijuana (THC) Screen (Negative) Ethyl Alcohol ( - 10) mg/dL SARS-CoV-2 (PCR) (Negative) 12/29/22 Range/Units 08:40 WBC (4.5-11.0) X10^3/uL RBC (4.5-5.9) X10^6/uL Hgb (13.5-17.5) g/dL Hct (41-53) % MCV (80-100) fL MCH (26-34) PG MCHC (30-36) % RDW (11.6-14.8) % Plt Count (150-400) X10^3/uL Neut % (Auto) (50-75) % Lymph % (Auto) (25-40) % [place] % (Auto) (3-14) % Eos % (Auto) (2-4) % Baso % (Auto) (0-2) % Neut # (Auto) (0227-6931) /uL Lymph # (Auto) (8140-3774) /uL [place] # (Auto) (0-900) /uL Eos # (Auto) (0-450) /uL Baso # (Auto) (0-100) /uL PT (10.1-12.7) SECONDS INR (0.9-1.3) APTT (26-36) SECONDS Sodium (137-145) mmol/L Potassium (3.4-5.1) mmol/L Chloride (98-107) mmol/L Carbon Dioxide (22-32) mmol/L BUN (9-20) mg/dL Creatinine (0.66-1.25) mg/dL Estimated GFR (>60) mL/min BUN/Creatinine Ratio (6-22) Glucose (80-110) mg/dL Lactate 1.1 (0.7-2.1) mmol/L Calcium (8.4-10.2) mg/dL Total Bilirubin (0.2-1.3) mg/dL AST (17-59) IU/L ALT (<50) IU/L Alkaline Phosphatase (38-126) U/L Total Creatine Kinase (55-170) U/L Troponin I (0.01-0.034) ng/mL NT-Pro-B Natriuret Pep (<125) pg/mL Total Protein (6.3-8.2) g/dL Albumin (3.5-5.0) g/dL Globulin (1.7-4.1) g/dL Albumin/Globulin Ratio (1.0-2.8) Procalcitonin (<0.5) ng/mL Urine Color Urine Appearance Urine pH (4.5-8.0) Ur Specific [place] (1.000-1.035) Urine Protein (Negative) Urine Glucose (UA) (Negative) g/dL Urine Ketones (NEGATIVE) Urine Occult Blood (Negative) Urine Nitrate (Negative) Urine Bilirubin (NEGATIVE) Urine Urobilinogen (0.2) E.U./dL Ur Leukocyte Esterase (NEGATIVE) Urine RBC (0-5/HPF) Urine WBC (0-5/HPF) Ur Squamous Epith Cells (0-5/HPF) Ur Transition Epith Cell (0-5/HPF) Urine Bacteria (None) Ur Culture Indicated? U Opiates 300ng/mL cut (Negative) Ur Oxycodone Screen (Negative) Urine Methadone Screen (Negative) Ur Barbiturates Screen (Negative) U Tricyclic Antidepress (Negative) Ur Phencyclidine Scrn (Negative) Ur Amphetamines Screen (Negative) U Methamphetamines Scrn (Negative) Ur MDMA Scrn (Ecstasy) (Negative) U Benzodiazepines Scrn (Negative) Urine Cocaine Screen (Negative) U Marijuana (THC) Screen (Negative) Ethyl Alcohol ( - 10) mg/dL SARS-CoV-2 (PCR) (Negative) Point of Care Testing Glucose POC 107 MDM Narrative Medical decision making narrative: 62-year-old male with extensive medical history presents by EMS for evaluation of fever and shaking chills at the request of his nursing facility, on their arrival they note a new right-sided lower extremity weakness initially thought to have been present since about 5:30 p.m. but on further questioning with patient has been present since at least 1 or 2:00 p.m. today. He is initially activated as a code stroke but is clearly outside of any tPA window. Furthermore, there is no evidence of a large vessel occlusion to suggest that he would be a code IR candidate. He does have fever and shaking chills and meets sepsis criteria, he is treated with 30 cc/kilogram of IV fluids, blood cultures are drawn, lactate is drawn, UTI as the presumed etiology, Rocephin 2 g ordered. Patient requires hospitalization for further treatment and stabilization of his condition 0645 - call from urology ([facility]), We have discussed clinical course, clearly patient requires hospitalization, not necessarily in need of transfer as patient may well do well on just IV antibiotics 0705 - call to Dr. Ngo, hospitalist here at [facility]. Not appropriate for hospitalization here given lack of urology back up. 08:20DR. M____ hospitalist at [facility] updated patient's symptoms test results. Waiting for repeat lactate to determine bed placement but will accept. Lactate is stable 1.1 leukocytosis also stable. Patient has been accepted to [facility] he has been NPO waiting for bed. 1800 ([place]) patient signed back out to myself. NO significant changes Dr. Barnett (Hospitalist at [facility]) happy to accept patient on his service. ALS transfer arranged <Alesia Fung DO - Last Filed: 12/30/22 07:12> Lab Data Labs: Lab Results 12/28/22 12/28/22 12/28/22 Range/Units 19:05 19:05 19:05 WBC 13.7 H (4.5-11.0) X10^3/uL RBC 4.37 L (4.5-5.9) X10^6/uL Hgb 12.8 L (13.5-17.5) g/dL Hct 38.2 L (41-53) % MCV 87.5 (80-100) fL MCH 29.3 (26-34) PG MCHC 33.5 (30-36) % RDW 15.6 H (11.6-14.8) % Plt Count 221 (150-400) X10^3/uL Neut % (Auto) 87.2 H (50-75) % Lymph % (Auto) 5.1 L (25-40) % [place] % (Auto) 6.3 (3-14) % Eos % (Auto) 1.1 L (2-4) % Baso % (Auto) 0.3 (0-2) % Neut # (Auto) 04870 H (8242-4559) /uL Lymph # (Auto) 700 L (9136-9491) /uL [place] # (Auto) 900 (0-900) /uL Eos # (Auto) 200 (0-450) /uL Baso # (Auto) 0 (0-100) /uL PT 12.9 H (10.1-12.7) SECONDS INR 1.1 (0.9-1.3) APTT 38 H (26-36) SECONDS Sodium 136 L (137-145) mmol/L Potassium 4.6 (3.4-5.1) mmol/L Chloride 103 (98-107) mmol/L Carbon Dioxide 24 (22-32) mmol/L BUN 44 H (9-20) mg/dL Creatinine 2.41 H (0.66-1.25) mg/dL Estimated GFR 29 L (>60) mL/min BUN/Creatinine Ratio 18.3 (6-22) Glucose 243 H (80-110) mg/dL Lactate (0.7-2.1) mmol/L Calcium 8.6 (8.4-10.2) mg/dL Total Bilirubin 0.4 (0.2-1.3) mg/dL AST 18 (17-59) IU/L ALT 16 (<50) IU/L Alkaline Phosphatase 91 (38-126) U/L Total Creatine Kinase 23 L (55-170) U/L Troponin I < 0.012 (0.01-0.034) ng/mL NT-Pro-B Natriuret Pep (<125) pg/mL Total Protein 6.5 (6.3-8.2) g/dL Albumin 3.6 (3.5-5.0) g/dL Globulin 2.9 (1.7-4.1) g/dL Albumin/Globulin Ratio 1.2 (1.0-2.8) Procalcitonin (<0.5) ng/mL Urine Color Urine Appearance Urine pH (4.5-8.0) Ur Specific [place] (1.000-1.035) Urine Protein (Negative) Urine Glucose (UA) (Negative) g/dL Urine Ketones (NEGATIVE) Urine Occult Blood (Negative) Urine Nitrate (Negative) Urine Bilirubin (NEGATIVE) Urine Urobilinogen (0.2) E.U./dL Ur Leukocyte Esterase (NEGATIVE) Urine RBC (0-5/HPF) Urine WBC (0-5/HPF) Ur Squamous Epith Cells (0-5/HPF) Ur Transition Epith Cell (0-5/HPF) Urine Bacteria (None) Ur Culture Indicated? U Opiates 300ng/mL cut (Negative) Ur Oxycodone Screen (Negative) Urine Methadone Screen (Negative) Ur Barbiturates Screen (Negative) U Tricyclic Antidepress (Negative) Ur Phencyclidine Scrn (Negative) Ur Amphetamines Screen (Negative) U Methamphetamines Scrn (Negative) Ur MDMA Scrn (Ecstasy) (Negative) U Benzodiazepines Scrn (Negative) Urine Cocaine Screen (Negative) U Marijuana (THC) Screen (Negative) Ethyl Alcohol < 10 ( - 10) mg/dL SARS-CoV-2 (PCR) (Negative) 12/28/22 12/28/22 12/28/22 Range/Units 19:05 19:05 19:05 WBC (4.5-11.0) X10^3/uL RBC (4.5-5.9) X10^6/uL Hgb (13.5-17.5) g/dL Hct (41-53) % MCV (80-100) fL MCH (26-34) PG MCHC (30-36) % RDW (11.6-14.8) % Plt Count (150-400) X10^3/uL Neut % (Auto) (50-75) % Lymph % (Auto) (25-40) % [place] % (Auto) (3-14) % Eos % (Auto) (2-4) % Baso % (Auto) (0-2) % Neut # (Auto) (7854-3158) /uL Lymph # (Auto) (4191-6537) /uL [place] # (Auto) (0-900) /uL Eos # (Auto) (0-450) /uL Baso # (Auto) (0-100) /uL PT (10.1-12.7) SECONDS INR (0.9-1.3) APTT (26-36) SECONDS Sodium (137-145) mmol/L Potassium (3.4-5.1) mmol/L Chloride (98-107) mmol/L Carbon Dioxide (22-32) mmol/L BUN (9-20) mg/dL Creatinine (0.66-1.25) mg/dL Estimated GFR (>60) mL/min BUN/Creatinine Ratio (6-22) Glucose (80-110) mg/dL Lactate 1.5 (0.7-2.1) mmol/L Calcium (8.4-10.2) mg/dL Total Bilirubin (0.2-1.3) mg/dL AST (17-59) IU/L ALT (<50) IU/L Alkaline Phosphatase (38-126) U/L Total Creatine Kinase (55-170) U/L Troponin I (0.01-0.034) ng/mL NT-Pro-B Natriuret Pep 1560 H (<125) pg/mL Total Protein (6.3-8.2) g/dL Albumin (3.5-5.0) g/dL Globulin (1.7-4.1) g/dL Albumin/Globulin Ratio (1.0-2.8) Procalcitonin 0.43 (<0.5) ng/mL Urine Color Urine Appearance Urine pH (4.5-8.0) Ur Specific [place] (1.000-1.035) Urine Protein (Negative) Urine Glucose (UA) (Negative) g/dL Urine Ketones (NEGATIVE) Urine Occult Blood (Negative) Urine Nitrate (Negative) Urine Bilirubin (NEGATIVE) Urine Urobilinogen (0.2) E.U./dL Ur Leukocyte Esterase (NEGATIVE) Urine RBC (0-5/HPF) Urine WBC (0-5/HPF) Ur Squamous Epith Cells (0-5/HPF) Ur Transition Epith Cell (0-5/HPF) Urine Bacteria (None) Ur Culture Indicated? U Opiates 300ng/mL cut (Negative) Ur Oxycodone Screen (Negative) Urine Methadone Screen (Negative) Ur Barbiturates Screen (Negative) U Tricyclic Antidepress (Negative) Ur Phencyclidine Scrn (Negative) Ur Amphetamines Screen (Negative) U Methamphetamines Scrn (Negative) Ur MDMA Scrn (Ecstasy) (Negative) U Benzodiazepines Scrn (Negative) Urine Cocaine Screen (Negative) U Marijuana (THC) Screen (Negative) Ethyl Alcohol ( - 10) mg/dL SARS-CoV-2 (PCR) (Negative) 12/28/22 12/28/22 12/28/22 Range/Units 19:51 20:07 20:33 WBC (4.5-11.0) X10^3/uL RBC (4.5-5.9) X10^6/uL Hgb (13.5-17.5) g/dL Hct (41-53) % MCV (80-100) fL MCH (26-34) PG MCHC (30-36) % RDW (11.6-14.8) % Plt Count (150-400) X10^3/uL Neut % (Auto) (50-75) % Lymph % (Auto) (25-40) % [place] % (Auto) (3-14) % Eos % (Auto) (2-4) % Baso % (Auto) (0-2) % Neut # (Auto) (5009-9803) /uL Lymph # (Auto) (4899-0569) /uL [place] # (Auto) (0-900) /uL Eos # (Auto) (0-450) /uL Baso # (Auto) (0-100) /uL PT (10.1-12.7) SECONDS INR (0.9-1.3) APTT (26-36) SECONDS Sodium (137-145) mmol/L Potassium (3.4-5.1) mmol/L Chloride (98-107) mmol/L Carbon Dioxide (22-32) mmol/L BUN (9-20) mg/dL Creatinine (0.66-1.25) mg/dL Estimated GFR (>60) mL/min BUN/Creatinine Ratio (6-22) Glucose (80-110) mg/dL Lactate (0.7-2.1) mmol/L Calcium (8.4-10.2) mg/dL Total Bilirubin (0.2-1.3) mg/dL AST (17-59) IU/L ALT (<50) IU/L Alkaline Phosphatase (38-126) U/L Total Creatine Kinase (55-170) U/L Troponin I (0.01-0.034) ng/mL NT-Pro-B Natriuret Pep (<125) pg/mL Total Protein (6.3-8.2) g/dL Albumin (3.5-5.0) g/dL Globulin (1.7-4.1) g/dL Albumin/Globulin Ratio (1.0-2.8) Procalcitonin (<0.5) ng/mL Urine Color Yellow Urine Appearance Cloudy Urine pH 7.5 (4.5-8.0) Ur Specific [place] 1.010 (1.000-1.035) Urine Protein 2+ H (Negative) Urine Glucose (UA) Trace H (Negative) g/dL Urine Ketones Negative (NEGATIVE) Urine Occult Blood 3+ H (Negative) Urine Nitrate Negative (Negative) Urine Bilirubin Negative (NEGATIVE) Urine Urobilinogen 0.2 (0.2) E.U./dL Ur Leukocyte Esterase 3+ H (NEGATIVE) Urine RBC 30-100/hpf H (0-5/HPF) Urine WBC 30-100/hpf H (0-5/HPF) Ur Squamous Epith Cells 0-1 /hpf (0-5/HPF) Ur Transition Epith Cell 0-1/hpf (0-5/HPF) Urine Bacteria Many (>30) H (None) Ur Culture Indicated? Specimen cultured U Opiates 300ng/mL cut Negative (Negative) Ur Oxycodone Screen Negative (Negative) Urine Methadone Screen Negative (Negative) Ur Barbiturates Screen Negative (Negative) U Tricyclic Antidepress Negative (Negative) Ur Phencyclidine Scrn Negative (Negative) Ur Amphetamines Screen Negative (Negative) U Methamphetamines Scrn Negative (Negative) Ur MDMA Scrn (Ecstasy) Negative (Negative) U Benzodiazepines Scrn Negative (Negative) Urine Cocaine Screen Negative (Negative) U Marijuana (THC) Screen Negative (Negative) Ethyl Alcohol ( - 10) mg/dL SARS-CoV-2 (PCR) Negative (Negative) 08/19/23 08/19/23 08/19/23 Range/Units 08:40 08:40 08:40 WBC 13.1 H (4.5-11.0) X10^3/uL RBC 3.95 L (4.5-5.9) X10^6/uL Hgb 11.6 L (13.5-17.5) g/dL Hct 34.7 L (41-53) % MCV 87.8 (80-100) fL MCH 29.3 (26-34) PG MCHC 33.4 (30-36) % RDW 15.4 H (11.6-14.8) % Plt Count 185 (150-400) X10^3/uL Neut % (Auto) 85.5 H (50-75) % Lymph % (Auto) 5.4 L (25-40) % [place] % (Auto) 8.5 (3-14) % Eos % (Auto) 0.3 L (2-4) % Baso % (Auto) 0.3 (0-2) % Neut # (Auto) 17357 H (3125-0820) /uL Lymph # (Auto) 700 L (3926-2587) /uL [place] # (Auto) 1100 H (0-900) /uL Eos # (Auto) 0 (0-450) /uL Baso # (Auto) 0 (0-100) /uL PT (10.1-12.7) SECONDS INR (0.9-1.3) APTT (26-36) SECONDS Sodium Cancelled 135 L (137-145) mmol/L Potassium Cancelled 4.3 (3.4-5.1) mmol/L Chloride Cancelled 105 (98-107) mmol/L Carbon Dioxide Cancelled 22 (22-32) mmol/L BUN Cancelled 43 H (9-20) mg/dL Creatinine Cancelled 2.53 H (0.66-1.25) mg/dL Estimated GFR Cancelled 28 L (>60) mL/min BUN/Creatinine Ratio Cancelled 17.0 (6-22) Glucose Cancelled 266 H (80-110) mg/dL Lactate (0.7-2.1) mmol/L Calcium Cancelled 7.4 L (8.4-10.2) mg/dL Total Bilirubin 0.4 (0.2-1.3) mg/dL AST 17 (17-59) IU/L ALT 16 (<50) IU/L Alkaline Phosphatase 85 (38-126) U/L Total Creatine Kinase (55-170) U/L Troponin I (0.01-0.034) ng/mL NT-Pro-B Natriuret Pep (<125) pg/mL Total Protein 5.7 L (6.3-8.2) g/dL Albumin 3.1 L (3.5-5.0) g/dL Globulin 2.6 (1.7-4.1) g/dL Albumin/Globulin Ratio 1.2 (1.0-2.8) Procalcitonin 0.95 H (<0.5) ng/mL Urine Color Urine Appearance Urine pH (4.5-8.0) Ur Specific [place] (1.000-1.035) Urine Protein (Negative) Urine Glucose (UA) (Negative) g/dL Urine Ketones (NEGATIVE) Urine Occult Blood (Negative) Urine Nitrate (Negative) Urine Bilirubin (NEGATIVE) Urine Urobilinogen (0.2) E.U./dL Ur Leukocyte Esterase (NEGATIVE) Urine RBC (0-5/HPF) Urine WBC (0-5/HPF) Ur Squamous Epith Cells (0-5/HPF) Ur Transition Epith Cell (0-5/HPF) Urine Bacteria (None) Ur Culture Indicated? U Opiates 300ng/mL cut (Negative) Ur Oxycodone Screen (Negative) Urine Methadone Screen (Negative) Ur Barbiturates Screen (Negative) U Tricyclic Antidepress (Negative) Ur Phencyclidine Scrn (Negative) Ur Amphetamines Screen (Negative) U Methamphetamines Scrn (Negative) Ur MDMA Scrn (Ecstasy) (Negative) U Benzodiazepines Scrn (Negative) Urine Cocaine Screen (Negative) U Marijuana (THC) Screen (Negative) Ethyl Alcohol ( - 10) mg/dL SARS-CoV-2 (PCR) (Negative) 12/29/22 Range/Units 08:40 WBC (4.5-11.0) X10^3/uL RBC (4.5-5.9) X10^6/uL Hgb (13.5-17.5) g/dL Hct (41-53) % MCV (80-100) fL MCH (26-34) PG MCHC (30-36) % RDW (11.6-14.8) % Plt Count (150-400) X10^3/uL Neut % (Auto) (50-75) % Lymph % (Auto) (25-40) % [place] % (Auto) (3-14) % Eos % (Auto) (2-4) % Baso % (Auto) (0-2) % Neut # (Auto) (1701-7231) /uL Lymph # (Auto) (9922-2014) /uL [place] # (Auto) (0-900) /uL Eos # (Auto) (0-450) /uL Baso # (Auto) (0-100) /uL PT (10.1-12.7) SECONDS INR (0.9-1.3) APTT (26-36) SECONDS Sodium (137-145) mmol/L Potassium (3.4-5.1) mmol/L Chloride (98-107) mmol/L Carbon Dioxide (22-32) mmol/L BUN (9-20) mg/dL Creatinine (0.66-1.25) mg/dL Estimated GFR (>60) mL/min BUN/Creatinine Ratio (6-22) Glucose (80-110) mg/dL Lactate 1.1 (0.7-2.1) mmol/L Calcium (8.4-10.2) mg/dL Total Bilirubin (0.2-1.3) mg/dL AST (17-59) IU/L ALT (<50) IU/L Alkaline Phosphatase (38-126) U/L Total Creatine Kinase (55-170) U/L Troponin I (0.01-0.034) ng/mL NT-Pro-B Natriuret Pep (<125) pg/mL Total Protein (6.3-8.2) g/dL Albumin (3.5-5.0) g/dL Globulin (1.7-4.1) g/dL Albumin/Globulin Ratio (1.0-2.8) Procalcitonin (<0.5) ng/mL Urine Color Urine Appearance Urine pH (4.5-8.0) Ur Specific [place] (1.000-1.035) Urine Protein (Negative) Urine Glucose (UA) (Negative) g/dL Urine Ketones (NEGATIVE) Urine Occult Blood (Negative) Urine Nitrate (Negative) Urine Bilirubin (NEGATIVE) Urine Urobilinogen (0.2) E.U./dL Ur Leukocyte Esterase (NEGATIVE) Urine RBC (0-5/HPF) Urine WBC (0-5/HPF) Ur Squamous Epith Cells (0-5/HPF) Ur Transition Epith Cell (0-5/HPF) Urine Bacteria (None) Ur Culture Indicated? U Opiates 300ng/mL cut (Negative) Ur Oxycodone Screen (Negative) Urine Methadone Screen (Negative) Ur Barbiturates Screen (Negative) U Tricyclic Antidepress (Negative) Ur Phencyclidine Scrn (Negative) Ur Amphetamines Screen (Negative) U Methamphetamines Scrn (Negative) Ur MDMA Scrn (Ecstasy) (Negative) U Benzodiazepines Scrn (Negative) Urine Cocaine Screen (Negative) U Marijuana (THC) Screen (Negative) Ethyl Alcohol ( - 10) mg/dL SARS-CoV-2 (PCR) (Negative) Point of Care Testing Glucose POC [address] scan - abdomen/pelvis: Radiologist's Impression: Preliminary report: Status post right ureteric stent placement without significant hydronephrosis. Right perinephric fat stranding this may be reactive from hydronephrosis from a previous obstructing urinary tract stone prior to removal and placement of ureteral stent. Pyelonephritis will require exclusion. Constipation. MDM Narrative Medical decision making narrative: 62-year-old male with extensive medical history presents by EMS for evaluation of fever and shaking chills at the request of his nursing facility, on their arrival they note a new right-sided lower extremity weakness initially thought to have been present since about 5:30 p.m. but on further questioning with patient has been present since at least 1 or 2:00 p.m. today. He is initially activated as a code stroke but is clearly outside of any tPA window. Furthermore, there is no evidence of a large vessel occlusion to suggest that he would be a code IR candidate. He does have fever and shaking chills and meets sepsis criteria, he is treated with 30 cc/kilogram of IV fluids, blood cultures are drawn, lactate is drawn, UTI as the presumed etiology, Rocephin 2 g ordered. Patient requires hospitalization for further treatment and stabilization of his condition 0645 - call from urology ([facility]), We have discussed clinical course, clearly patient requires hospitalization, not necessarily in need of transfer as patient may well do well on just IV antibiotics 704 - call to Dr. Ngo, hospitalist here at [facility]. Not appropriate for hospitalization here given lack of urology back up. 08:20DR. Cleo____ hospitalist at [facility] updated patient's symptoms test results. Waiting for repeat lactate to determine bed placement but will accept. Lactate is stable 1.1 leukocytosis also stable. Patient has been accepted to [facility] he has been NPO waiting for bed. Critical Care Time <Ruben Veras, DO - Last Filed: 12/30/22 02:14> Critical Care Time Critical Care Time: Yes Total Critical Care Time: 60 Attestation: The high probability of a clinically significant, sudden or life threatening deterioration of the [] system(s) required my full and direct attention, intervention and personal management. The aggregate critical care time was [] minutes. This time is in addition to time spent performing reported procedures but includes the following: x Data Review and interpretation [x] Patient assessment and monitoring of vital signs [x] Documentation [x] Medication orders and management Discharge Plan Departure Patient Disposition: [facility] Clinical Impression: Sepsis, Stroke, Acute UTI Prescriptions: No Action torsemide 20 mg tablet 20 mg PO QAM nystatin 100,000 unit/gram ointment 1 applic topical BID pantoprazole 40 mg Tablet,Delayed Release (Dr/Ec) 40 mg PO QAM bismuth subsalicylate [Pepto-Bismol] 262 mg/15 mL Suspension 262 mg PO Q6HR PRN (Reason: Loose Stool) docusate sodium 100 mg Capsule 200 mg PO BID aspirin 81 mg Tablet 81 mg PO QAM ferrous sulfate 325 mg (65 mg iron) Capsule, Extended Release 325 mg PO QAM atorvastatin 20 mg tablet 20 mg PO BEDTIME Lantus Solostar U-100 Insulin 100 unit/mL (3 mL) insulin pen 30 unit SUBCUT QPM loperamide 2 mg capsule 2 mg PO BID PRN (Reason: Diarrhea) polyethylene glycol 3350 17 gram powder in packet 17 g PO QAM ondansetron HCl 4 mg tablet 4 mg PO Q8HR PRN (Reason: Nausea) hydrocodone-acetaminophen 5-325 mg tablet 1 tab PO Q4HR PRN (Reason: Pain (Scale Score 4-6)) potassium chloride 10 mEq tablet extended release 10 meq PO QAM acetaminophen 500 mg tablet 1,000 mg PO Q4HR PRN (Reason: mild pain/ fever) Rx Instructions: Max 3000/24 hours calcium carbonate [Calcium Antacid] 200 mg calcium (500 mg) tablet,chewable 400 mg PO TID Rx Instructions: with meals for CKD Referrals: Keeley Michel MD [Primary Care Provider] -
[2022-12-28 19:27] LABS: INR 1.1 (0.9-1.3); Prothrombin Time 12.9 SECONDS (10.1-12.7)
[2022-12-28 19:29] LABS: PTT Partial Thromboplastin Tim 38 SECONDS (26-36)
[2022-12-28 19:35] LABS: Alanine Aminotransferase 16 IU/L (<50); Albumin 3.6 g/dL (3.5-5.0); Albumin Globulin Ratio 1.2 (1.0-2.8); Alkaline Phosphatase 91 U/L (38-126); Aspartate Aminotransferase 18 IU/L (17-59); BUN Creatinine Ratio 18.3 (6-22); Bilirubin Total 0.4 mg/dL (0.2-1.3); Blood Urea Nitrogen 44 mg/dL (9-20); Calcium 8.6 mg/dL (8.4-10.2); Carbon Dioxide 24 mmol/L (22-32); Chloride 103 mmol/L (98-107); Creatine Kinase 23 U/L (55-170); Estimated Glomerular Filt Rate 29 mL/min (>60); Ethanol (ETOH) < 10 mg/dL; Globulin 2.9 g/dL (1.7-4.1); Glucose 243 mg/dL (80-110); HEMOLYSIS 21 (0-50); Potassium 4.6 mmol/L (3.4-5.1); Sodium 136 mmol/L (137-145); Total Protein 6.5 g/dL (6.3-8.2)
[2022-12-28 19:43] LABS: Troponin I < 0.012 ng/mL (0.01-0.034)
--- NOTE | 2022-12-28 20:20 | PC.NURSE ---
arrived with herrera in place. pt states it was over a month old. herrera has some bloody drainage. and is purulent and cloudy. herrera removed. balloon deflated and intact. new herrera placed without incidedent. tolerated well. pt arrived to ER incontinent of a large amount of stool. sacrum area is stage 2 breakdown. skin is bloody and rough. pt states he has had skin breakdown there.
[2022-12-28 20:25] LABS: UR Morphine/Opiate cutoff 300 Negative (Negative); Ur Creatinine Normal (Normal); Ur Specific Gravity Normal (Normal); Urine Amphetamines Negative (Negative); Urine Barbiturates Negative (Negative); Urine Benzodiazepines Negative (Negative); Urine Cocaine Negative (Negative); Urine MDMA Negative (Negative); Urine Methadone Negative (Negative); Urine Methamphetamines Negative (Negative); Urine Oxycodone Negative (Negative); Urine Phencyclidine Negative (Negative); Urine Tetrahydrocannabinol Negative (Negative); Urine Tricyclic Antidepressant Negative (Negative); Urine pH Normal (Normal)
[2022-12-28 20:30] LABS: Lactate (Lactic Acid) 1.5 mmol/L (0.7-2.1)
[2022-12-28 20:38] LABS: NT-proBNP (BNP-Adult 18+) 1560 pg/mL (<125)
[2022-12-28 20:46] LABS: Procalcitonin 0.43 ng/mL (<0.5)
[2022-12-28 20:57] LABS: COVID19 -Nasal RAPID Negative (Negative)
[2022-12-28] MEDS: ACETAMINOPHEN 325 MG TABLET 650 MG PO (21:07)
[2022-12-28 21:09] LABS: Bilirubin Urine UA NEGATIVE (NEGATIVE); Color Urine UA YELLOW; Glucose Urine UA TRACE g/dL (Negative); Ketones Urine UA NEGATIVE (NEGATIVE); Leukocyte Esterase Urine UA 3+ (NEGATIVE); Nitrite Urine UA NEGATIVE (Negative); Occult Blood Urine UA 3+ (Negative); Protein Urine UA 2+ (Negative); Urobilinogen Urine UA 0.2 E.U./dL (0.2); pH Urine UA 7.5 (4.5-8.0)
--- NOTE | 2022-12-28 21:16 | DI.RAD.S_ITS ---
PROCEDURE: XR CHEST 1V INDICATIONS: sepsis/stroke work up TECHNIQUE: One view of the chest was acquired. COMPARISON: [facility], CR, XR CHEST 1V, 11/13/2022, 13:38. FINDINGS: Surgical changes and devices: None. Lungs and pleura: Lungs are clear. No pleural effusions or pneumothorax. Mediastinum: Mediastinal contours appear normal. Heart size is normal. Bones and chest wall: No suspicious bony lesions. Overlying soft tissues appear unremarkable. IMPRESSION: 1. No acute cardiopulmonary disease. Dictated by: Orlando Stack M.D. on 12/28/2022 at 23:08 Approved by: Orlando Stack M.D. on 12/28/2022 at 23:08
[2022-12-28 21:24] LABS: Appearance Urine UA CLOUDY
[2022-12-28 21:25] LABS: Bacteria Urine Many (>30); Culture Indicated Urine Specimen Cultured; RBC Urine 30-100/HPF (0-5/HPF); Squamous Epithelial Cell Urine 0-1 /HPF (0-5/HPF); Transitional Epi Cells Urine 0-1/HPF (0-5/HPF); WBC Urine 30-100/HPF (0-5/HPF)
[2022-12-28] MEDS: cefTRIAXone 2,000 MG in SODIUM CHLORIDE 0.9% 100 ML 200 MG IV (21:59)
[2022-12-28] MEDS: SODIUM CHLORIDE 0.9% 1,983 ML 661 ML IV (23:34)
[2022-12-29] VITALS (108 sets, daily range): BP systolic 94–134; BP diastolic 50–68; PULSE 78–99; RESP 17–26; TEMP 37–38.9; O2SAT 93–98; BMI 37.4
--- NOTE | 2022-12-29 01:27 | DI.CT.S_ITS ---
PROCEDURE: CT KIDNEY URETER BLADDER (KUB) INDICATIONS: uro sepsis, recent stent TECHNIQUE: Axial sections were acquired from the lung bases to the pubic symphysis. Coronal and sagittal reformats were performed. For radiation dose reduction, the following was used: automated exposure control, adjustment of mA and/or kV according to patient size. COMPARISON: [facility], CT, CT KIDNEY URETER BLADDER (KUB), 11/13/2022, 15:59. FINDINGS: Lower thorax: Mild dependent basilar atelectasis Liver: Normal in size and attenuation. No contour deformity present. Biliary system: No calcified cholelithiasis or pericholecystic inflammation. No intra or extrahepatic bile duct dilatation. Pancreas: Unremarkable without mass or inflammation evident. Spleen: Normal in size and density. Adrenals: Normal morphology and density. Reproductive system: Unremarkable as visualized. Urinary system: Well-positioned right ureteral stent is now present. Hightower catheter in the bladder. Mild bladder wall thickening consistent with nondistention. Left renal atrophy. No hydronephrosis. Contrast noted within both renal collecting systems. Gastrointestinal system: Moderate fecal debris throughout the colon without obstruction. Large fecal bolus in the rectum. Appendix: No findings to suggest acute appendicitis. Peritoneal spaces: No mesenteric or retroperitoneal adenopathy. No free air. No free fluid. Vasculature: The IVC, aorta and iliac vasculature are unremarkable. Abdominal wall: Abdominal wall intact without evidence of ventral or inguinal hernias. Musculoskeletal: Normal bone mineralization. No acute fractures. Mild degenerative disc disease and arthropathy in the lower lumbar spine IMPRESSION: 1. Right ureteral stent in good position. No hydronephrosis bilaterally. 2. Nonspecific right perinephric fat stranding. Differential would include reactive edema and less likely infection. Note: Final report is concordant with preliminary interpretation by [employer] Approved by: Jose Bravo M.D. on 12/29/2022 at 9:28
[2022-12-29] MEDS: ACETAMINOPHEN IV 1,000 MG/100 ML VIAL 400 MG IV ×2 (05:18→15:32)
--- NOTE | 2022-12-29 07:30 | PC.NURSE ---
Report given by Josefina Maynard RN/ED @ 9733. This RN's first interaction with pt @ 6534. Pt was resting with eyes closed at time of shift change. In no apparent distress. At this time, AOx4. Pt able to verbalize his needs. Left side deficits.
[2022-12-29] MEDS: SODIUM CHLORIDE 0.9% 1,000 ML 150 ML IV ×3 (08:27→22:20)
[2022-12-29 09:07] LABS: Add Manual Diff / Slide Review NO; Basophils Absolute Auto 0 /uL (0-100); Basophils Percent Auto 0.3 % (0-2); Eosinophils Absolute Auto 0 /uL (0-450); Eosinophils Percent Auto 0.3 % (2-4); Hematocrit 34.7 % (41-53); Hemoglobin 11.6 g/dL (13.5-17.5); Lymphocytes Absolute Auto 700 /uL (1100-4500); Lymphocytes Percent Auto 5.4 % (25-40); Mean Corpuscular HGB Conc 33.4 % (30-36); Mean Corpuscular Hemoglobin 29.3 PG (26-34); Mean Corpuscular Volume 87.8 fL (80-100); Monocytes Absolute Auto 1100 /uL (0-900); Monocytes Percent Auto 8.5 % (3-14); Neutrophils Absolute Auto 11200 /uL (1500-7000); Neutrophils Percent Auto 85.5 % (50-75); Platelet Count 185 X10^3/uL (150-400); Red Blood Cell Count 3.95 X10^6/uL (4.5-5.9); Red Cell Distribution Width 15.4 % (11.6-14.8); White Blood Cell Count 13.1 X10^3/uL (4.5-11.0)
[2022-12-29 09:16] LABS: Lactate (Lactic Acid) 1.1 mmol/L (0.7-2.1)
[2022-12-29 09:17] LABS: Alanine Aminotransferase 16 IU/L (<50); Albumin 3.1 g/dL (3.5-5.0); Albumin Globulin Ratio 1.2 (1.0-2.8); Alkaline Phosphatase 85 U/L (38-126); Aspartate Aminotransferase 17 IU/L (17-59); Bilirubin Total 0.4 mg/dL (0.2-1.3); Blood Urea Nitrogen 43 mg/dL (9-20); Carbon Dioxide 22 mmol/L (22-32); Chloride 105 mmol/L (98-107); Estimated Glomerular Filt Rate 28 mL/min (>60); Globulin 2.6 g/dL (1.7-4.1); Glucose 266 mg/dL (80-110); HEMOLYSIS < 15 (0-50); Potassium 4.3 mmol/L (3.4-5.1); Sodium 135 mmol/L (137-145); Total Protein 5.7 g/dL (6.3-8.2)
[2022-12-29 09:40] LABS: Calcium 7.4 mg/dL (8.4-10.2)
[2022-12-29 09:52] LABS: Procalcitonin 0.95 ng/mL (<0.5)
[2022-12-29] MEDS: polyethylene glycoL 3350 17 GM POWD.PACK PO (12:51)
[2022-12-29] MEDS: DOCUSATE 100 MG CAPSULE 200 MG PO (12:51)
--- NOTE | 2022-12-29 18:35 | PC.NURSE ---
Pt anxious about if w/c is plugged in @ [place]. I called and left message at nursing stations and asked for return phone call to confirm it is plugged in.
--- NOTE | 2022-12-29 19:24 | PC.NURSE ---
Pt placed in hospital bed. Q2 turn/reposition order. Last turn 1899. Cecilia care, brief change, BM @ 1925.
[2022-12-29] MEDS: cefTRIAXone 2,000 MG in SODIUM CHLORIDE 0.9% 100 ML 200 MG IV (20:44)
[2022-12-29] MEDS: INSULIN GLARGINE 100 UNIT/ML 3ML PEN 30 UNIT SUBCUT (23:03)
[2022-12-30] VITALS (17 sets, daily range): BP systolic 100–121; BP diastolic 54–62; PULSE 81–92; RESP 20; TEMP 37.3–38; O2SAT 93–98
[2022-12-30] MEDS: ACETAMINOPHEN IV 1,000 MG/100 ML VIAL 400 MG IV (02:03)
[2022-12-30] MEDS: SODIUM CHLORIDE 0.9% 1,000 ML 150 ML IV (04:09)
[2022-12-30 09:34] LABS: Acinetobacter calcoa-baumannii Not Detected (Not Detect); Bacteroides fragilis Not Detected (Not Detect); Candida albicans Not Detected (Not Detect); Candida auris Not Detected (Not Detect); Candida glabrata Not Detected (Not Detect); Candida krusei Not Detected (Not Detect); Candida parapsilosis Not Detected (Not Detect); Candida tropicalis Not Detected (Not Detect); Enterobacter cloacae complex Not Detected (Not Detect); Enterobacterales DETECTED (Not Detect); Enterococcus faecalis Not Detected (Not Detect); Enterococcus faecium Not Detected (Not Detect); Haemophilus influenzae Not Detected (Not Detect); Klebsiella aerogenes Not Detected (Not Detect); Listeria monocytogenes Not Detected (Not Detect); Neisseria meningitidis Not Detected (Not Detect); Proteus species DETECTED (Not Detect); Pseudomonas aeruginosa Not Detected (Not Detect); Salmonella species Not Detected (Not Detect); Serratia marcescens Not Detected (Not Detect); Staphylococcus epidermidis Not Detected (Not Detect); Staphylococcus lugdunensis Not Detected (Not Detect); Staphylococcus species Not Detected (Not Detect); Stenotrophomonas maltophilia Not Detected (Not Detect); Streptococcus agalactiae (Gr B Not Detected (Not Detect); Streptococcus pneumonia Not Detected (Not Detect); Streptococcus pyogenes (Gr A) Not Detected (Not Detect); Streptococcus species Not Detected (Not Detect)
[2022-12-30 09:35] LABS: Cryptococcus neoformans/gatti Not Detected (Not Detect)
[2023-01-01 07:40] LABS: CTX-M Resistance Not Detected (Not Detect); IMP Resistance Not Detected (Not Detect); KPC Resistance Not Detected (Not Detect); NDM Resistance Not Detected (Not Detect); OXA-48-like Resistance Not Detected (Not Detect); VIM Resistance Not Detected (Not Detect)
== END 2022-12-30 04:31 | disposition short-term general hospital (02) ==
PROVIDERS: Emergency Medicine; Emergency Provider Emergency Medicine; PCP Internal Medicine
DX: I63.9 Cerebral infarction, unspecified (principal); A41.9 Sepsis, unspecified organism; N39.0 Urinary tract infection, site not specified; Z79.899 Other long term (current) drug therapy; Z20.822 Contact with and (suspected) exposure to COVID-19
CPT/HCPCS: 36415; 70450; 70496; 70498; 71045; 74176; 80053; 80305; 80320; 81001; 82550; 82962; 83605; 83880; 84145; 84484; 85025; 85610; 85730; 87040; 87077; 87086; 87154; 87186; 87635; 93005; 96365; 96366; 96367; 96372; 99285; 99291; C9803; J0131; J0696

== ENCOUNTER 2023-02-21 13:04 | Emergency (ER) | payer MEDICARE, MEDICAID, SELFPAY ==
[2022-12-29 20:01] VITALS: BMI 37.4
[2023-02-21 13:10] VITALS: BP 159/76; PULSE 97; RESP 24; TEMP 37.2; O2SAT 97; BMI 36.9
--- NOTE | 2023-02-21 13:14 | ED.MALEGU ---
HPI - Male Genitourinary General Chief complaint: Urogenital-Male Stated complaint: Cath Plug Time Seen by Provider: 02/21/23 13:06 History of Present Illness HPI Narrative: 62-year-old male with history of chronic indwelling Hightower catheter presents by EMS from assisted living facility for blocked catheter. Catheter last placed 2 weeks ago. No nursing staff available at patient's living facility for exchange and he was sent here for evaluation. Patient states he went to bed in his usual state of health and at 4:00 a.m. was woken by the catheter blockage and suprapubic pain. Catheter was exchanged by nursing staff at bedside, patient reported instant relief of his pain and subsequently is asymptomatic. Related Data Home Medications Medication Instructions Recorded Confirmed aspirin 81 mg tablet 81 mg PO QAM 12/30/20 12/29/22 bismuth subsalicylate 262 mg/15 mL 262 mg PO Q6HR PRN Loose Stool 12/30/20 12/29/22 oral suspension (Pepto-Bismol) docusate sodium 100 mg capsule 200 mg PO BID 12/30/20 12/29/22 ferrous sulfate 325 mg (65 mg 325 mg PO QAM 12/30/20 12/29/22 iron) capsule,extended release pantoprazole 40 mg tablet,delayed 40 mg PO QAM 12/30/20 12/29/22 release atorvastatin 20 mg tablet 20 mg PO BEDTIME 04/12/21 12/29/22 insulin glargine 100 unit/mL (3 30 unit SUBCUT QPM 04/12/21 12/29/22 mL) subcutaneous pen (Lantus Solostar U-100 Insulin) nystatin 100,000 unit/gram topical 1 applic topical BID 04/12/21 12/29/22 ointment torsemide 20 mg tablet 20 mg PO QAM 04/12/21 12/29/22 loperamide 2 mg capsule 2 mg PO BID PRN Diarrhea 05/10/21 12/29/22 polyethylene glycol 3350 17 gram 17 g PO QAM 05/10/21 12/29/22 oral powder packet acetaminophen 500 mg tablet 1,000 mg PO Q4HR PRN mild pain/ 11/13/22 12/29/22 fever calcium carbonate 200 mg calcium 400 mg PO TID 11/13/22 12/29/22 (500 mg) chewable tablet (Calcium Antacid) hydrocodone 5 mg-acetaminophen 325 1 tab PO Q4HR PRN Pain (Scale 11/13/22 12/29/22 mg tablet Score 4-6) potassium chloride 10 mEq 10 meq PO QAM 11/13/22 12/29/22 tablet,extended release ondansetron HCl 4 mg tablet 4 mg PO Q8HR PRN Nausea 12/29/22 12/29/22 Previous Rx's Medication Instructions Recorded cefpodoxime 200 mg tablet 200 mg PO BID #20 tabs 02/21/23 sodium,potassium,mag sulfates 17.5 See Rx Instructions PO .COMPLEX 02/21/23 gram-3.13 gram-1.6 gram oral soln #354 mL (Suprep Bowel Prep Kit) Allergies Allergy/AdvReac Type Severity Reaction Status Date / Time No Known Drug Allergies Allergy Verified 02/21/23 13:13 Review of Systems Review of Systems Narrative: CONSTITUTIONAL- Denies: fever, chills, fatigue HEENT- Denies: sore throat, nosebleed, vision changes RESPIRATORY- Denies: shortness of breath, cough, wheezing CARDIAC- Denies: chest pain, edema, orthopnea GI- Denies: abdominal pain, nausea, vomiting, constipation, diarrhea -reports: Suprapubic pain, catheter blockage Denies: frequency, dysuria, hematuria, flank pain MSK- Denies: extremity pain, extremity swelling, joint pain, joint swelling SKIN- Denies: rash, itching, burn, swelling NEUROLOGICAL- Denies: headache, numbness, weakness, dizziness PSYCHIATRIC- Denies: anxiety, depression, suicidal ideation, homicidal ideation Patient History Medical History Chronic anemia Chronic kidney disease Chronic kidney disease, stage IV (severe) History of neurogenic bladder Hyperlipidemia Hypertension Multiple sclerosis Neurogenic bladder Recurrent UTI (urinary tract infection) Stroke Type 2 diabetes mellitus Surgical History History of circumcision History of knee replacement Hx of hernia repair Family History Grandfather Coronary artery disease Brother Hyperlipidemia Hypertension Social History marital status: unmarried,single number of children: 1 household members: caregiver Smoking Status: Former smoker alcohol intake: former substance use type: does not use Smoking Status: Former smoker alcohol intake frequency: 0-2 drinks per day Substance Use Type: does not use Exam Initial Vital Signs Initial Vital Signs: Vital Signs Temperature 99.0 F 02/21/23 13:10 Pulse Rate 97 H 02/21/23 13:10 Respiratory Rate 24 02/21/23 13:10 Blood Pressure 159/76 H 02/21/23 13:10 Pulse Oximetry 97 02/21/23 13:10 Oxygen Delivery Method Room Air 02/21/23 13:10 Const: Awake, alert, no acute distress, debilitated, appears chronically unwell Eyes: PERRL, EOMI, conjunctiva normal ENT: Atraumatic, dentition normal, mucous membranes moist Cardiac: regular rate, regular rhythm RESP: unlabored, clear bilaterally, no wheezing GI: Atraumatic, soft, nontender, nondistended, no rebound, no guarding : Hightower in place, draining cloudy yellow urine Skin: Warm, Dry, intact, no rashes Neuro: AO x3, CN II-XII grossly intact Psych: Appropriate for condition Course Course Course Narrative: Patient is chronically unwell appearing, presenting for decreased drainage from Hightower catheter. It has been 2 weeks since his last replacement, sent in today because there was no nursing staff available at patient's living facility for exchange. Catheter exchanged by nursing staff, cloudy yellow urine drained from bladder. Patient stated that after Hightower catheter was exchanged his symptoms entirely resolved. Due to the very cloudy nature of the urine a sample was sent to the lab for analysis with leukocyte esterase. Patient's previous cultures were significant for fluoroquinolone resistance, however there were sensitivity to cephalosporins. Initial dose of Rocephin given in department, discharged on cefpodoxime. Orders Ordered: ED Orders 02/21/23 14:00 UA Complete [Urinalysis and Microscopic] Stat Urine Culture Stat Discontinued Medications Ceftriaxone Sodium (Ceftriaxone 2,000 Mg Vial) 2,000 mg IM NOW ONE Stop: 02/21/23 15:00 Last Admin: 02/21/23 15:23 Dose: 2,000 mg Documented By: SPF Ceftriaxone Sodium 2,000 mg/ (Sodium Chloride) 100 mls @ 200 mls/hr IV NOW ONE Stop: 02/21/23 14:28 Last Admin: 02/21/23 15:08 Dose: Not Given Documented By: RB Lidocaine HCl (Lidocaine 2% (Glydo) 6 Ml Gel) 6 ml TOP NOW ONE Stop: 02/21/23 13:10 Last Admin: 02/21/23 13:35 Dose: 6 ml Documented By: KENDY Vital Signs Vital signs: Vital Signs - 8 hr 02/21/23 13:10 02/21/23 14:00 02/21/23 14:47 Temperature 99.0 F Pulse Rate 97 H 92 H 92 H Respiratory Rate 24 16 20 Blood Pressure 159/76 H 106/57 L 110/58 L Pulse Oximetry 97 93 98 Oxygen Delivery Method Room Air Room Air Room Air 02/21/23 15:26 Temperature Pulse Rate 101 H Respiratory Rate Blood Pressure 129/58 L Pulse Oximetry 99 Oxygen Delivery Method Room Air MDM - Male Genitourinary Lab Data Labs: Lab Results 02/21/23 Range/Units 14:00 Urine Color Yellow Urine Appearance Cloudy Urine pH 7.0 (4.5-8.0) Ur Specific [place] 1.010 (1.000-1.035) Urine Protein Negative (Negative) Urine Glucose (UA) Trace H (Negative) g/dL Urine Ketones Negative (NEGATIVE) Urine Occult Blood 3+ H (Negative) Urine Nitrate Negative (Negative) Urine Bilirubin Negative (NEGATIVE) Urine Urobilinogen 0.2 (0.2) E.U./dL Ur Leukocyte Esterase 3+ H (NEGATIVE) Urine RBC 30-100/hpf H (0-5/HPF) Urine WBC >100/hpf H (0-5/HPF) Ur Squamous Epith Cells 1-5 /hpf (0-5/HPF) Urine Bacteria Moderate (10-30) H (None) Ur Culture Indicated? Specimen cultured Micro UA Comment Urine Dip Bedside Urine Glucose Negative Bedside Urine Bilirubin - Negative Bedside Urine Ketone - Negative Urine Specific [place] 1.010 Bedside Urine Occult Blood +++ Bedside Urine pH 7.0 Bedside Urine Protein - Negative Bedside Urine Urobilinogen - Negative Bedside Urine Nitrite - Negative Bedside Urine Leukocytes +++ 500 Esterase Discharge Plan Departure Patient Disposition: Home Clinical Impression: Acute UTI Instructions: DI for Urinary Tract Infection (UTI) Prescriptions: New cefpodoxime 200 mg tablet 200 mg PO BID Qty: 20 0RF Rx Instructions: must administer with a meal/food No Action sodium,potassium,mag sulfates [Suprep Bowel Prep Kit] 17.5-3.13-1.6 gram recon soln See Rx Instructions PO .COMPLEX Qty: 354 0RF Rx Instructions: take as directed by Physician torsemide 20 mg tablet 20 mg PO QAM nystatin 100,000 unit/gram ointment 1 applic topical BID pantoprazole 40 mg Tablet,Delayed Release (Dr/Ec) 40 mg PO QAM bismuth subsalicylate [Pepto-Bismol] 262 mg/15 mL Suspension 262 mg PO Q6HR PRN (Reason: Loose Stool) docusate sodium 100 mg Capsule 200 mg PO BID aspirin 81 mg Tablet 81 mg PO QAM ferrous sulfate 325 mg (65 mg iron) Capsule, Extended Release 325 mg PO QAM atorvastatin 20 mg tablet 20 mg PO BEDTIME Lantus Solostar U-100 Insulin 100 unit/mL (3 mL) insulin pen 30 unit SUBCUT QPM loperamide 2 mg capsule 2 mg PO BID PRN (Reason: Diarrhea) polyethylene glycol 3350 17 gram powder in packet 17 g PO QAM ondansetron HCl 4 mg tablet 4 mg PO Q8HR PRN (Reason: Nausea) hydrocodone-acetaminophen 5-325 mg tablet 1 tab PO Q4HR PRN (Reason: Pain (Scale Score 4-6)) potassium chloride 10 mEq tablet extended release 10 meq PO QAM acetaminophen 500 mg tablet 1,000 mg PO Q4HR PRN (Reason: mild pain/ fever) Rx Instructions: Max 3000/24 hours calcium carbonate [Calcium Antacid] 200 mg calcium (500 mg) tablet,chewable 400 mg PO TID Rx Instructions: with meals for CKD Referrals: Keeley Michel MD [Primary Care Provider] - Stand Alone Forms: Patient Portal/API
[2023-02-21] MEDS: LIDOCAINE 2% (GLYDO) 6 ML GEL TOP (13:35)
--- NOTE | 2023-02-21 13:55 | PC.NURSE ---
Patient cannot describe his pain, but has 8/10 bladder pain since 0400 this morning. He states his catheter is clogged. Pt's catheter was removed, he states he already feels relief. A new catheter was inserted with a 20french herrera catheter. Pt states his pain is already much better (3/10) since the new herrera was inserted. We changed patient into a clean, new brief.
[2023-02-21 14:00] VITALS: BP 106/57; PULSE 92; RESP 16; O2SAT 93
[2023-02-21 14:18] LABS: Bilirubin Urine UA NEGATIVE (NEGATIVE); Color Urine UA YELLOW; Glucose Urine UA TRACE g/dL (Negative); Ketones Urine UA NEGATIVE (NEGATIVE); Leukocyte Esterase Urine UA 3+ (NEGATIVE); Nitrite Urine UA NEGATIVE (Negative); Occult Blood Urine UA 3+ (Negative); Protein Urine UA NEGATIVE (Negative); Urobilinogen Urine UA 0.2 E.U./dL (0.2)
[2023-02-21 14:37] LABS: Appearance Urine UA CLOUDY; RBC Urine 30-100/HPF (0-5/HPF); WBC Urine >100/HPF (0-5/HPF)
[2023-02-21 14:38] LABS: Bacteria Urine Moderate (10-30); Culture Indicated Urine Specimen Cultured; Squamous Epithelial Cell Urine 1-5 /HPF (0-5/HPF)
[2023-02-21 14:47] VITALS: BP 110/58; PULSE 92; RESP 20; O2SAT 98
--- NOTE | 2023-02-21 15:16 | PC.NURSE ---
Patient states he had a BM. COCKTAIL SERVER and myself change patient into a new brief after cleaning him up.
[2023-02-21] MEDS: cefTRIAXone 2,000 MG VIAL 2000 MG IM (15:23)
--- NOTE | 2023-02-21 15:24 | PC.NURSE ---
Patient's IM dose of ceftriaxone 2000mg administered in 3x injections.
[2023-02-21 15:26] VITALS: BP 129/58; PULSE 101; O2SAT 99
== END 2023-02-21 15:41 | disposition home or self-care (01) ==
PROVIDERS: Emergency Provider Emergency Medicine; PCP Internal Medicine
DX: N39.0 Urinary tract infection, site not specified (principal); Z79.899 Other long term (current) drug therapy
CPT/HCPCS: 81001; 81003; 87077; 87086; 87186; 96372; 99283; 99284; J0696

== ENCOUNTER → 2023-03-22 22:35 | Outpatient (ROUT) | payer MEDICARE, MEDICAID, SELFPAY ==
[2022-12-29 20:01] VITALS: BMI 37.4
[2023-03-22 22:44] LABS: Appearance Urine UA SL CLOUDY; Bilirubin Urine UA NEGATIVE (NEGATIVE); Color Urine UA YELLOW; Glucose Urine UA NEGATIVE (Negative); Ketones Urine UA NEGATIVE (NEGATIVE); Leukocyte Esterase Urine UA 3+ (NEGATIVE); Nitrite Urine UA NEGATIVE (Negative); Occult Blood Urine UA 1+ (Negative); Protein Urine UA TRACE (Negative); Urobilinogen Urine UA 0.2 E.U./dL (0.2)
[2023-03-22 23:03] LABS: RBC Urine 1-5/HPF (0-5/HPF)
[2023-03-22 23:04] LABS: Bacteria Urine Many (>30); Culture Indicated Urine Specimen Cultured; Squamous Epithelial Cell Urine 0-1 /HPF (0-5/HPF); WBC Urine >100/HPF (0-5/HPF)
== END ==
PROVIDERS: PCP Internal Medicine; Visit Provider Internal Medicine
DX: N39.0 Urinary tract infection, site not specified (principal)
CPT/HCPCS: 81001; 87077; 87086; 87186

== ENCOUNTER 2023-04-30 12:10 | Day surgery (SDC) | payer MEDICARE, MEDICAID, SELFPAY ==
[2022-12-29 20:01] VITALS: BMI 37.4
[2023-04-30] VITALS (8 sets, daily range): BP systolic 106–141; BP diastolic 57–82; PULSE 80–91; RESP 16–28; TEMP 36.4; O2SAT 95–98; BMI 37.5
[2023-04-30] MEDS: LACTATED RINGERS 1,000 ML 42 ML IV (12:38)
--- NOTE | 2023-04-30 13:20 | PM.HP.1 ---
History of Present Illness History of Present Illness Date Patient Seen: 04/30/23 Time Patient Seen: 13:20 Chief complaint: Colonoscopy Narrative: 62-year-old man with MS here for screening colonoscopy. Last colonoscopy 10 years ago normal. No family history of intestinal malignancy. No abdominal concerns today. [facility] Medical History Chronic anemia Chronic kidney disease Chronic kidney disease, stage IV (severe) History of neurogenic bladder Hyperlipidemia Hypertension Multiple sclerosis Neurogenic bladder Recurrent UTI (urinary tract infection) Stroke Type 2 diabetes mellitus Surgical History History of circumcision History of knee replacement Hx of hernia repair Family History Grandfather Coronary artery disease Brother Hyperlipidemia Hypertension Social History marital status: unmarried,single number of children: 1 household members: caregiver Smoking Status: Former smoker alcohol intake: former substance use type: does not use Meds Home Medications and Allergies Home Medications Medication Instructions Recorded Confirmed Type aspirin 81 mg tablet 81 mg PO QAM 12/30/20 04/30/23 History bismuth subsalicylate 262 mg/15 mL 262 mg PO Q6HR PRN Loose Stool 12/30/20 04/30/23 History oral suspension (Pepto-Bismol) docusate sodium 100 mg capsule 200 mg PO BID 12/30/20 04/30/23 History ferrous sulfate 325 mg (65 mg 325 mg PO QAM 12/30/20 04/30/23 History iron) capsule,extended release pantoprazole 40 mg tablet,delayed 40 mg PO QAM 12/30/20 04/30/23 History release atorvastatin 20 mg tablet 20 mg PO BEDTIME 04/12/21 04/30/23 History insulin glargine 100 unit/mL (3 30 unit SUBCUT QPM 04/12/21 04/30/23 History mL) subcutaneous pen (Lantus Solostar U-100 Insulin) nystatin 100,000 unit/gram topical 1 applic topical BID 04/12/21 04/30/23 History ointment torsemide 20 mg tablet 20 mg PO QAM 04/12/21 04/30/23 History loperamide 2 mg capsule 2 mg PO BID PRN Diarrhea 05/10/21 04/30/23 History polyethylene glycol 3350 17 gram 17 g PO QAM 05/10/21 04/30/23 History oral powder packet acetaminophen 500 mg tablet 500 mg PO Q4HR PRN mild pain/ fever 11/13/22 04/30/23 History calcium carbonate 200 mg calcium 400 mg PO TID 11/13/22 04/30/23 History (500 mg) chewable tablet (Calcium Antacid) hydrocodone 5 mg-acetaminophen 325 1 tab PO Q4HR PRN Pain (Scale 11/13/22 04/30/23 History mg tablet Score 4-6) potassium chloride 10 mEq 10 meq PO QAM 11/13/22 04/30/23 History tablet,extended release ondansetron HCl 4 mg tablet 4 mg PO Q8HR PRN Nausea 12/29/22 04/30/23 History Allergies Allergy/AdvReac Type Severity Reaction Status Date / Time No Known Drug Allergies Allergy Verified 04/30/23 12:36 Exam Vital Signs (past 8 hours): - 04/30/23 12:44 Temperature 97.6 F Pulse Rate 87 Respiratory Rate 24 Blood Pressure 134/74 Pulse Oximetry 97 Oxygen Delivery Method Room Air Oxygen Delivery Method Room Air Narrative Exam Narrative: General adult man alert oriented no acute distress Chest nonlabored respiration Extremities warm well perfused Assessment & Plan Assessment & Plan narrative: The patient requires colorectal screening and colonoscopy is recommended. Technical details were discussed. Risks, benefits, alternatives explained. Risks including but not limited to myocardial infarction, aspiration, bleeding, pain, missed lesion, incomplete examination, need for further radiographic studies, colonic perforation, and need for major abdominal surgery were discussed. All questions were answered to their satisfaction, and they are in agreement with this plan.
--- NOTE | 2023-04-30 14:00 | PM.OP.COLON ---
Operative Date/Time/Diagnoses Date of procedure: 04/30/23 Time of procedure: 14:00 Pre-op diagnosis: Screening colonoscopy Procedure & Clinicians Study performed: Aborted colonoscopy Indications: Colorectal screening Surgeon: Sg Clement Procedure Notes Procedure in detail: The history and physical was performed/updated and the patient is ASA class is 4. The procedure was discussed in detail with the patient. Potential risks complications including infection, bleeding, missed diagnosis, perforation, need for surgery, and were explained. Their questions were answered and informed consent was obtained. Patient was brought to the procedure room and placed standard monitoring equipment. The patient's vital signs were monitored continuously throughout the entire procedure. Prior to starting time-out was performed. The patient was placed in the left lateral recumbent position. Procedural sedation was administered by anesthesia. Examination began with a thorough inspection of the perianal area there was no evidence of fissures, fistulae, external hemorrhoids or cutaneous malignancy. The colonoscopy scope was then placed into the anal canal. The quality of the prep was poor, inadequate for safe and accurate performance of the exam. The procedure was aborted Impression: Aborted colonoscopy Post-procedure Plan for aftercare: An alternative method for colorectal screening should be obtained recommend either Cologuard or Hemoccult.
--- NOTE | 2023-04-30 14:18 | SUR.PHASEII ---
This nurse called [facility] to notify of failed colonoscopy due to incomplete prep. According to carbon sequestration plant manager, prep was given to patient at 1700 and patient is incontinent. No staff was able to assist patient to make sure patient had completed all of his colonoscopy prep to satisfaction.
== END 2023-04-30 15:55 ==
PROVIDERS: PCP Internal Medicine; Referring Provider Surgery; Visit Provider Surgery
PROC: 0DJD8ZZ Inspection of Lower Intestinal Tract, Via Natural or Artificial Opening Endoscopic (ICD-10-PCS; CPT 45378; principal; 2023-04-30 13:00)
DX: Z12.11 Encounter for screening for malignant neoplasm of colon (principal); Z53.09 Procedure and treatment not carried out because of other contraindication
CPT/HCPCS: G0121

== ENCOUNTER → 2023-05-28 07:33 | Outpatient (ROUT) | payer MEDICARE, MEDICAID, SELFPAY ==
[2022-12-29 20:01] VITALS: BMI 37.4
[2023-05-28 07:54] LABS: Hemoglobin A1C% w Est Avg Glu 7.9 % (4.0-6.0)
[2023-05-28 08:06] LABS: Add Manual Diff / Slide Review NO; Basophils Absolute Auto 100 /uL (0-100); Basophils Percent Auto 0.7 % (0-2); Eosinophils Absolute Auto 500 /uL (0-450); Eosinophils Percent Auto 5.3 % (2-4); Hematocrit 37.4 % (41-53); Hemoglobin 12.9 g/dL (13.5-17.5); Lymphocytes Absolute Auto 1500 /uL (1100-4500); Lymphocytes Percent Auto 16.1 % (25-40); Mean Corpuscular HGB Conc 34.5 % (30-36); Mean Corpuscular Hemoglobin 29.3 PG (26-34); Monocytes Absolute Auto 700 /uL (0-900); Monocytes Percent Auto 7.9 % (3-14); Neutrophils Absolute Auto 6500 /uL (1500-7000); Platelet Count 262 X10^3/uL (150-400); Red Cell Distribution Width 14.1 % (11.6-14.8); White Blood Cell Count 9.3 X10^3/uL (4.5-11.0)
[2023-05-28 08:20] LABS: BUN Creatinine Ratio 26.7 (6-22); Blood Urea Nitrogen 63 mg/dL (9-20); Calcium 8.8 mg/dL (8.4-10.2); Carbon Dioxide 21 mmol/L (22-32); Chloride 104 mmol/L (98-107); Estimated Glomerular Filt Rate 30 mL/min (>60); Glucose 224 mg/dL (80-110); HEMOLYSIS < 15 (0-50); Potassium 3.8 mmol/L (3.4-5.1); Sodium 137 mmol/L (137-145)
== END ==
PROVIDERS: PCP Internal Medicine; Visit Provider Internal Medicine
DX: E11.9 Type 2 diabetes mellitus without complications (principal)
CPT/HCPCS: 36415; 80048; 83036; 85025

== ENCOUNTER → 2023-06-18 07:10 | Outpatient (ROUT) | payer MEDICARE, MEDICAID, SELFPAY ==
[2022-12-29 20:01] VITALS: BMI 37.4
[2023-06-18 17:33] LABS: Vitamin D 25 Hydroxy (D3) 37.3 ng/mL (30.0-100.0)
== END ==
PROVIDERS: PCP Internal Medicine; Visit Provider Internal Medicine
DX: E55.9 Vitamin D deficiency, unspecified (principal)
CPT/HCPCS: 36415; 82306

== ENCOUNTER → 2023-09-03 07:23 | Outpatient (ROUT) | payer MEDICARE, MEDICAID, SELFPAY ==
[2022-12-29 20:01] VITALS: BMI 37.4
[2023-09-03 07:39] LABS: Add Manual Diff / Slide Review NO; Basophils Absolute Auto 100 /uL (0-100); Basophils Percent Auto 0.6 % (0-2); Eosinophils Absolute Auto 500 /uL (0-450); Eosinophils Percent Auto 4.7 % (2-4); Hematocrit 38.4 % (41-53); Hemoglobin 12.9 g/dL (13.5-17.5); Lymphocytes Absolute Auto 1800 /uL (1100-4500); Lymphocytes Percent Auto 18.2 % (25-40); Mean Corpuscular HGB Conc 33.5 % (30-36); Mean Corpuscular Hemoglobin 29.4 PG (26-34); Mean Corpuscular Volume 87.8 fL (80-100); Monocytes Absolute Auto 800 /uL (0-900); Monocytes Percent Auto 7.6 % (3-14); Neutrophils Absolute Auto 6900 /uL (1500-7000); Neutrophils Percent Auto 68.9 % (50-75); Platelet Count 231 X10^3/uL (150-400); Red Blood Cell Count 4.37 X10^6/uL (4.5-5.9); Red Cell Distribution Width 14.3 % (11.6-14.8)
[2023-09-03 07:48] LABS: Hemoglobin A1C% w Est Avg Glu 8.5 % (4.0-6.0)
[2023-09-03 07:57] LABS: Blood Urea Nitrogen 56 mg/dL (9-20); Calcium 8.4 mg/dL (8.4-10.2); Carbon Dioxide 25 mmol/L (22-32); Chloride 104 mmol/L (98-107); Estimated Glomerular Filt Rate 32 mL/min (>60); Glucose 173 mg/dL (80-110); HEMOLYSIS < 15 (0-50); Sodium 137 mmol/L (137-145)
== END ==
PROVIDERS: PCP Internal Medicine; Visit Provider Nurse Practitioner Gerontology
DX: E11.9 Type 2 diabetes mellitus without complications (principal)
CPT/HCPCS: 36415; 80048; 83036; 85025

== ENCOUNTER → 2023-12-10 11:45 | Outpatient (ROUT) | payer MEDICARE, MEDICAID, SELFPAY ==
[2022-12-29 20:01] VITALS: BMI 37.4
[2023-12-10 12:18] LABS: Add Manual Diff / Slide Review NO; Basophils Absolute Auto 100 /uL (0-100); Basophils Percent Auto 0.8 % (0-2); Eosinophils Absolute Auto 400 /uL (0-450); Hematocrit 42.4 % (41-53); Hemoglobin 14.4 g/dL (13.5-17.5); Lymphocytes Absolute Auto 1700 /uL (1100-4500); Lymphocytes Percent Auto 15.1 % (25-40); Mean Corpuscular HGB Conc 34.1 % (30-36); Mean Corpuscular Hemoglobin 29.6 PG (26-34); Monocytes Absolute Auto 700 /uL (0-900); Monocytes Percent Auto 6.2 % (3-14); Neutrophils Absolute Auto 8400 /uL (1500-7000); Neutrophils Percent Auto 73.9 % (50-75); Platelet Count 266 X10^3/uL (150-400); Red Blood Cell Count 4.87 X10^6/uL (4.5-5.9); Red Cell Distribution Width 14.1 % (11.6-14.8); White Blood Cell Count 11.3 X10^3/uL (4.5-11.0)
[2023-12-10 12:58] LABS: BUN Creatinine Ratio 30.1 (6-22); Blood Urea Nitrogen 75 mg/dL (9-20); Calcium 8.8 mg/dL (8.4-10.2); Carbon Dioxide 23 mmol/L (22-32); Chloride 103 mmol/L (98-107); Estimated Glomerular Filt Rate 28 mL/min (>60); Glucose 247 mg/dL (80-110); HEMOLYSIS < 15 (0-50); Potassium 3.6 mmol/L (3.4-5.1); Sodium 140 mmol/L (137-145)
[2023-12-10 13:02] LABS: Hemoglobin A1C% w Est Avg Glu 8.1 % (4.0-6.0)
== END ==
PROVIDERS: PCP Internal Medicine; Visit Provider Nurse Practitioner Gerontology
DX: E11.9 Type 2 diabetes mellitus without complications (principal)
CPT/HCPCS: 36415; 80048; 83036; 85025

== ENCOUNTER 2023-12-29 03:49 | Emergency (ER) | payer MEDICARE, MEDICAID, SELFPAY ==
[2022-12-29 20:01] VITALS: BMI 37.4
[2023-12-29 03:54] VITALS: BP 144/74; PULSE 98; O2SAT 95
[2023-12-29 03:57] VITALS: BP 144/74; PULSE 94; RESP 16; TEMP 36.6; O2SAT 94
[2023-12-29 04:00] VITALS: PULSE 97; O2SAT 95
--- NOTE | 2023-12-29 04:04 | PC.NURSE ---
catheter flused with 10 ml NS easily and immediately began draining yellow urine, pt states he is starting to feel better
--- NOTE | 2023-12-29 04:08 | PC.NURSE ---
pt states he has a kidney stone and has sediment, so his catheter keeps getting clogged it just needs to be changed, pt states it was last changed 9 days ago explained to pt that is was better to find the reason for it being clogged and try to fix it because continuing to reinsert catheters would set him up for infections
[2023-12-29 04:16] LABS: RBC Urine 1-5/HPF (0-5/HPF); Urine Volume 10mL (spun)
[2023-12-29 04:17] LABS: Bacteria Urine Many (>30); Squamous Epithelial Cell Urine 0-1 /HPF (0-5/HPF); Triple Phosphate Crystal Urine Few; WBC Urine >100/HPF (0-5/HPF)
[2023-12-29 04:18] LABS: Culture Indicated Urine Specimen Cultured
[2023-12-29 04:30] VITALS: PULSE 99; RESP 18; O2SAT 93
--- NOTE | 2023-12-29 04:49 | ED.MALEGU ---
HPI - Male Genitourinary General Chief complaint: Urogenital-Male Stated complaint: cath plugged Time Seen by Provider: 12/29/23 04:08 Source: patient and EMS Mode of arrival: EMS History of Present Illness HPI Narrative: Patient 63-year-old male history of multiple sclerosis, neurogenic bladder, diabetes, nonmobile at baseline, chronic indwelling Hightower catheter resides at long-term care facility presents today with Hightower catheter problem. He says that he has kidney stones and when he has kidney stones he gets sediment in his urine. He has not had any sort of fever. It was draining fine however throughout the night it got clogged. He says this catheter was replaced about 9 days ago. He says sometimes it needs to be replaced every 4. Nurse was able to flush it easily with immediate release and patient was already feeling better. No significant fever abdominal pain flank pain nausea or vomiting. Related Data Home Medications Medication Instructions Recorded Confirmed aspirin 81 mg tablet 81 mg PO QAM 12/30/20 04/30/23 bismuth subsalicylate 262 mg/15 mL 262 mg PO Q6HR PRN Loose Stool 12/30/20 04/30/23 oral suspension (Pepto-Bismol) docusate sodium 100 mg capsule 200 mg PO BID 12/30/20 04/30/23 ferrous sulfate 325 mg (65 mg 325 mg PO QAM 12/30/20 04/30/23 iron) capsule,extended release pantoprazole 40 mg tablet,delayed 40 mg PO QAM 12/30/20 04/30/23 release atorvastatin 20 mg tablet 20 mg PO BEDTIME 04/12/21 04/30/23 insulin glargine 100 unit/mL (3 30 unit SUBCUT QPM 04/12/21 04/30/23 mL) subcutaneous pen (Lantus Solostar U-100 Insulin) nystatin 100,000 unit/gram topical 1 applic topical BID 04/12/21 04/30/23 ointment torsemide 20 mg tablet 20 mg PO QAM 04/12/21 04/30/23 loperamide 2 mg capsule 2 mg PO BID PRN Diarrhea 05/10/21 04/30/23 polyethylene glycol 3350 17 gram 17 g PO QAM 05/10/21 04/30/23 oral powder packet acetaminophen 500 mg tablet 500 mg PO Q4HR PRN mild pain/ fever 11/13/22 04/30/23 calcium carbonate (Calcium Antacid) 400 mg PO TID 11/13/22 04/30/23 hydrocodone 5 mg-acetaminophen 325 1 tab PO Q4HR PRN Pain (Scale 11/13/22 04/30/23 mg tablet Score 4-6) potassium chloride 10 mEq 10 meq PO QAM 11/13/22 04/30/23 tablet,extended release ondansetron HCl 4 mg tablet 4 mg PO Q8HR PRN Nausea 12/29/22 04/30/23 Allergies Allergy/AdvReac Type Severity Reaction Status Date / Time No Known Drug Allergies Allergy Verified 04/30/23 12:36 Patient History Medical History Chronic kidney disease, stage IV (severe) History of neurogenic bladder Recurrent UTI (urinary tract infection) Stroke Neurogenic bladder Chronic anemia Chronic kidney disease Hypertension Hyperlipidemia Type 2 diabetes mellitus Multiple sclerosis Surgical History History of circumcision History of knee replacement Hx of hernia repair Family History Grandfather Coronary artery disease Brother Hyperlipidemia Hypertension Social History marital status: unmarried,single number of children: 1 household members: caregiver Smoking Status: Former smoker alcohol intake: former substance use type: does not use Smoking Status: Former smoker alcohol intake frequency: 0-2 drinks per day Substance Use Type: does not use Exam Initial Vital Signs Initial Vital Signs: Vital Signs Pulse Rate 98 H 12/29/23 03:54 Blood Pressure 144/74 H 12/29/23 03:54 Pulse Oximetry 95 12/29/23 03:54 GENERAL: Alert pleasant 63-year-old alert and oriented CARDIOVASCULAR: peripheral pulses in tact, cap refill <2 sec RESPIRATORY: No respiratory distress, speaks in full sentences without difficulty ABDOMEN: Soft, nontender, no guarding or rebound : Hightower catheter in there is some sediment but draining no blood EXTREMITIES: Normal range of motion, no clubbing or edema. Neurovascularly intact NEUROLOGICAL: Cranial nerves II through XII grossly intact. Normal gait and speech. SKIN: Warm, dry, no petechiae, no rashes or lesions. Course Orders Ordered: ED Orders 12/29/23 04:00 Urinalysis Screen (Dip Only) Stat Urine Culture Stat Urine Microscopic Stat Vital Signs Vital signs: Vital Signs - 8 hr 12/29/23 03:54 12/29/23 03:54 12/29/23 03:57 Temperature 97.9 F Pulse Rate 98 H 94 H Respiratory Rate 16 Blood Pressure 144/74 H 144/74 H Pulse Oximetry 95 94 Oxygen Delivery Method Room Air 12/29/23 04:00 12/29/23 04:30 Temperature Pulse Rate 97 H 99 H Respiratory Rate 18 Blood Pressure Pulse Oximetry 95 93 Oxygen Delivery Method MDM - Male Genitourinary Lab Data Labs: Lab Results 12/29/23 Range/Units 04:00 Urine Color Yellow Urine Appearance Cloudy Urine pH 8.0 (4.5-8.0) Ur Specific [place] 1.010 (1.000-1.035) Urine Protein 1+ H (Negative) Urine Glucose (UA) Negative (Negative) g/dL Urine Ketones Negative (NEGATIVE) Urine Occult Blood 2+ H (Negative) Urine Nitrate Negative (Negative) Urine Bilirubin Negative (NEGATIVE) Urine Urobilinogen 0.2 (0.2) E.U./dL Ur Leukocyte Esterase 3+ H (NEGATIVE) Urine RBC 1-5/hpf (0-5/HPF) Urine WBC >100/hpf H (0-5/HPF) Ur Squamous Epith Cells 0-1 /hpf (0-5/HPF) Triple Phos Crystals Few Urine Bacteria Many (>30) H (None) Ur Culture Indicated? Specimen cultured Vol Urine Centrifuged 10ml (spun) [facility] Narrative Medical decision making narrative: Patient is 63-year-old male chronic indwelling Hightower catheter presents today with Hightower catheter problem. It was easily unclogged with 10 cc of normal saline. He does have some sediment and leukocyte. Would hold off antibiotics until culture and sensitivity due to chronic indwelling Hightower catheter. He has no pain signs or symptoms to suggest acute nephrolithiasis. He has no fever in his mentating well. Discharge Plan Departure Patient Disposition: Home Clinical Impression: Complication of Hightower catheter Activity Restrictions/Additional Instructions: *You have been diagnosed with Hightower catheter *What to do: At this time will wait for urine culture and sensitivity to come back before starting on antibiotics, we will call in 2-3 days *Continue to take medications as directed *Follow up with your primary care provider in 2-3 days or call [phone] *Return to ER if you should have any new, worsening or concerning symptoms Prescriptions: No Action torsemide 20 mg tablet 20 mg PO QAM nystatin 100,000 unit/gram ointment 1 applic topical BID pantoprazole 40 mg Tablet,Delayed Release (Dr/Ec) 40 mg PO QAM bismuth subsalicylate [Pepto-Bismol] 262 mg/15 mL Suspension 262 mg PO Q6HR PRN (Reason: Loose Stool) docusate sodium 100 mg Capsule 200 mg PO BID aspirin 81 mg Tablet 81 mg PO QAM ferrous sulfate 325 mg (65 mg iron) Capsule, Extended Release 325 mg PO QAM atorvastatin 20 mg tablet 20 mg PO BEDTIME Lantus Solostar U-100 Insulin 100 unit/mL (3 mL) insulin pen 30 unit SUBCUT QPM Patient Comments: 5 units given at bedtime for BS 76 on 04/29/23 loperamide 2 mg capsule 2 mg PO BID PRN (Reason: Diarrhea) polyethylene glycol 3350 17 gram powder in packet 17 g PO QAM ondansetron HCl 4 mg tablet 4 mg PO Q8HR PRN (Reason: Nausea) hydrocodone-acetaminophen 5-325 mg tablet 1 tab PO Q4HR PRN (Reason: Pain (Scale Score 4-6)) potassium chloride 10 mEq tablet extended release 10 meq PO QAM acetaminophen 500 mg tablet 500 mg PO Q4HR PRN (Reason: mild pain/ fever) Rx Instructions: Max 3000/24 hours calcium carbonate [Calcium Antacid] 200 mg calcium (500 mg) tablet,chewable 400 mg PO TID Rx Instructions: with meals for CKD Referrals: Keeley Michel MD [Primary Care Provider] - Stand Alone Forms: Patient Portal/API
[2023-12-29 05:45] LABS: Appearance Urine UA CLOUDY; Bilirubin Urine UA NEGATIVE (NEGATIVE); Color Urine UA YELLOW; Glucose Urine UA NEGATIVE (Negative); Ketones Urine UA NEGATIVE (NEGATIVE); Leukocyte Esterase Urine UA 3+ (NEGATIVE); Nitrite Urine UA NEGATIVE (Negative); Occult Blood Urine UA 2+ (Negative); Protein Urine UA 1+ (Negative); Urobilinogen Urine UA 0.2 E.U./dL (0.2)
== END 2023-12-29 04:51 | disposition home or self-care (01) ==
PROVIDERS: Emergency Provider Emergency Medicine; PCP Internal Medicine
DX: T83.098A Other mechanical complication of other urinary catheter, initial encounter (principal)
CPT/HCPCS: 51798; 81003; 81015; 87077; 87086; 99282; 99283

== ENCOUNTER 2024-01-10 17:16 | Emergency (ER) | payer MEDICARE, MEDICAID, SELFPAY ==
[2022-12-29 20:01] VITALS: BMI 37.4
[2024-01-10] VITALS (13 sets, daily range): BP systolic 117–154; BP diastolic 60–74; PULSE 97–107; RESP 15–18; TEMP 37; O2SAT 93–99; BMI 34.2
--- NOTE | 2024-01-10 18:49 | PC.NURSE ---
Pt incontinent of stool. Stool sample collected and sent. Pt noted to have redness on bilateral buttocks with increase skin growth. Left buttock with bleeding noted when wiping. Barrier protection ointment placed on buttocks with mepilex dressings. No noted open sores. New herrera sticker placed. Machelle RN at the bedside for US IV placement. This RN attempted x1 unsuccessful
[2024-01-10] MEDS: SODIUM CHLORIDE 0.9% 1,000 ML 1000 ML IV ×2 (18:57→19:56)
[2024-01-10 19:06] LABS: Add Manual Diff / Slide Review NO; Basophils Absolute Auto 100 /uL (0-100); Basophils Percent Auto 0.6 % (0-2); Eosinophils Absolute Auto 100 /uL (0-450); Eosinophils Percent Auto 0.5 % (2-4); Hematocrit 47.5 % (41-53); Hemoglobin 15.9 g/dL (13.5-17.5); Lymphocytes Absolute Auto 1500 /uL (1100-4500); Lymphocytes Percent Auto 8.3 % (25-40); Mean Corpuscular HGB Conc 33.4 % (30-36); Mean Corpuscular Hemoglobin 29.1 PG (26-34); Mean Corpuscular Volume 87.1 fL (80-100); Monocytes Absolute Auto 1500 /uL (0-900); Monocytes Percent Auto 8.5 % (3-14); Neutrophils Absolute Auto 14600 /uL (1500-7000); Neutrophils Percent Auto 82.1 % (50-75); Platelet Count 320 X10^3/uL (150-400); Red Blood Cell Count 5.46 X10^6/uL (4.5-5.9); Red Cell Distribution Width 14.4 % (11.6-14.8); White Blood Cell Count 17.7 X10^3/uL (4.5-11.0)
[2024-01-10 19:18] LABS: Alanine Aminotransferase 16 IU/L (<50); Albumin 4.4 g/dL (3.5-5.0); Albumin Globulin Ratio 1.4 (1.0-2.8); Alkaline Phosphatase 98 U/L (38-126); Aspartate Aminotransferase 15 IU/L (17-59); BUN Creatinine Ratio 22.1 (6-22); Bilirubin Total 0.5 mg/dL (0.2-1.3); Blood Urea Nitrogen 74 mg/dL (9-20); Calcium 9.4 mg/dL (8.4-10.2); Carbon Dioxide 23 mmol/L (22-32); Chloride 100 mmol/L (98-107); Estimated Glomerular Filt Rate 20 mL/min (>60); Globulin 3.2 g/dL (1.7-4.1); Glucose 250 mg/dL (80-110); HEMOLYSIS < 15 (0-50); Lipase 138 U/L (23-300); Potassium 3.5 mmol/L (3.4-5.1); Sodium 139 mmol/L (137-145); Total Protein 7.6 g/dL (6.3-8.2)
--- NOTE | 2024-01-10 19:48 | ED_ITS ---
HPI - Nausea/Vomiting/Diarrhea General Chief complaint: Nausea/Vomiting/Diarrhea Stated complaint: Diarrhea Time Seen by Provider: 01/10/24 17:49 Source: patient Mode of arrival: EMS History of Present Illness HPI Narrative: Patient is a 63-year-old male. Has a history of MS. Recently on antibiotics but he states he does not remember why he was on this medication. Has been having a couple days of watery diarrhea. No abdominal pain. He stated that he was given antidiarrheal medicines without any improvement. No urinary symptoms. No vomiting. No fevers. Related Data Home Medications Medication Instructions Recorded Confirmed aspirin 81 mg tablet 81 mg PO QAM 12/30/20 04/30/23 bismuth subsalicylate 262 mg/15 mL 262 mg PO Q6HR PRN Loose Stool 12/30/20 04/30/23 oral suspension (Pepto-Bismol) docusate sodium 100 mg capsule 200 mg PO BID 12/30/20 04/30/23 ferrous sulfate 325 mg (65 mg 325 mg PO QAM 12/30/20 04/30/23 iron) capsule,extended release pantoprazole 40 mg tablet,delayed 40 mg PO QAM 12/30/20 04/30/23 release atorvastatin 20 mg tablet 20 mg PO BEDTIME 04/12/21 04/30/23 insulin glargine 100 unit/mL (3 30 unit SUBCUT QPM 04/12/21 04/30/23 mL) subcutaneous pen (Lantus Solostar U-100 Insulin) nystatin 100,000 unit/gram topical 1 applic topical BID 04/12/21 04/30/23 ointment torsemide 20 mg tablet 20 mg PO QAM 04/12/21 04/30/23 loperamide 2 mg capsule 2 mg PO BID PRN Diarrhea 05/10/21 04/30/23 polyethylene glycol 3350 17 gram 17 g PO QAM 05/10/21 04/30/23 oral powder packet acetaminophen 500 mg tablet 500 mg PO Q4HR PRN mild pain/ fever 11/13/22 04/30/23 calcium carbonate (Calcium Antacid) 400 mg PO TID 11/13/22 04/30/23 hydrocodone 5 mg-acetaminophen 325 1 tab PO Q4HR PRN Pain (Scale 11/13/22 04/30/23 mg tablet Score 4-6) potassium chloride 10 mEq 10 meq PO QAM 11/13/22 04/30/23 tablet,extended release ondansetron HCl 4 mg tablet 4 mg PO Q8HR PRN Nausea 12/29/22 04/30/23 Allergies Allergy/AdvReac Type Severity Reaction Status Date / Time No Known Drug Allergies Allergy Verified 01/10/24 17:27 Review of Systems Review of Systems ROS Unobtainable: All systems reviewed & are unremarkable except as noted in HPI and below Patient History Medical History Chronic kidney disease, stage IV (severe) History of neurogenic bladder Recurrent UTI (urinary tract infection) Stroke Neurogenic bladder Chronic anemia Chronic kidney disease Hypertension Hyperlipidemia Type 2 diabetes mellitus Multiple sclerosis Surgical History History of circumcision History of knee replacement Hx of hernia repair Family History Grandfather Coronary artery disease Brother Hyperlipidemia Hypertension Social History marital status: unmarried,single number of children: 1 household members: caregiver Smoking Status: Former smoker alcohol intake: former substance use type: does not use Smoking Status: Former smoker alcohol intake frequency: holidays/special occasions only Substance Use Type: does not use Exam Initial Vital Signs Initial Vital Signs: Vital Signs Temperature 98.6 F 01/10/24 17:24 Pulse Rate 106 H 01/10/24 17:24 Respiratory Rate 15 01/10/24 17:24 Blood Pressure 129/66 01/10/24 17:24 Pulse Oximetry 95 01/10/24 17:24 Oxygen Delivery Method Room Air 01/10/24 17:24 Const General: cooperative, comfortable and No ill appearing HENWI Head: normal to inspection and normocephalic Resp Effort & Inspection: normal respiratory effort Auscultation: clear to auscultation bilaterally Cardio Rate: regular rate Rhythm: regular rhythm GI Inspection: normal to inspection and non-distended Palpation: soft and No tender Skin General: no rashes or lesions noted Neuro General: patient alert, patient awake and moves all extremities Extrem General: normal to inspection and capillary refill normal Course Orders Ordered: ED Orders 01/10/24 18:50 Complete Blood Count AUTO DIFF Stat Comprehensive Metabolic Panel Stat Lipase Stat 01/10/24 21:16 BMP [Basic Metabolic Panel] Stat Discontinued Medications Sodium Chloride (Normal Saline 0.9%) 1,000 mls @ 1,000 mls/hr IV BOLUS ONE Stop: 01/10/24 18:49 Last Infusion: 01/10/24 19:56 Dose: Infused Documented By: Admin: 01/10/24 18:57 Dose: 1,000 mls/hr Documented By: Sodium Chloride (Normal Saline 0.9%) 1,000 mls @ 1,000 mls/hr IV BOLUS ONE Stop: 01/10/24 20:47 Last Infusion: 01/10/24 21:15 Dose: Infused Documented By: Admin: 01/10/24 19:56 Dose: 1,000 mls/hr Documented By: Vital Signs Vital signs: Vital Signs - 8 hr 01/10/24 19:55 01/10/24 19:55 01/10/24 19:59 Pulse Rate 101 H Respiratory Rate Blood Pressure 140/68 Pulse Oximetry 94 99 Oxygen Delivery Method 01/10/24 20:00 01/10/24 20:30 01/10/24 21:00 Pulse Rate 97 H 98 H Respiratory Rate 18 Blood Pressure 154/74 H Pulse Oximetry 95 93 Oxygen Delivery Method 01/10/24 21:01 01/10/24 21:01 01/10/24 21:30 Pulse Rate 101 H 100 H Respiratory Rate Blood Pressure 146/69 H Pulse Oximetry 95 96 Oxygen Delivery Method 01/10/24 22:00 01/10/24 22:00 01/10/24 22:30 Pulse Rate 98 H 99 H Respiratory Rate 18 18 Blood Pressure 117/60 Pulse Oximetry 94 94 Oxygen Delivery Method Room Air MDM - Nausea/Vomiting/Diarrhea Lab Data 01/10/24 18:50 01/10/24 21:16 Labs: Lab Results 01/10/24 01/10/24 01/10/24 Range/Units 18:30 18:50 21:16 WBC 17.7 H (4.5-11.0) X10^3/uL RBC 5.46 (4.5-5.9) X10^6/uL Hgb 15.9 (13.5-17.5) g/dL Hct 47.5 (41-53) % MCV 87.1 (80-100) fL MCH 29.1 (26-34) PG MCHC 33.4 (30-36) % RDW 14.4 (11.6-14.8) % Plt Count 320 (150-400) X10^3/uL Neut % (Auto) 82.1 H (50-75) % Lymph % (Auto) 8.3 L (25-40) % [place] % (Auto) 8.5 (3-14) % Eos % (Auto) 0.5 L (2-4) % Baso % (Auto) 0.6 (0-2) % Neut # (Auto) 55217 H (3324-1386) /uL Lymph # (Auto) 1500 (8796-7837) /uL [place] # (Auto) 1500 H (0-900) /uL Eos # (Auto) 100 (0-450) /uL Baso # (Auto) 100 (0-100) /uL Sodium 139 136 L (137-145) mmol/L Potassium 3.5 2.9 L (3.4-5.1) mmol/L Chloride 100 107 (98-107) mmol/L Carbon Dioxide 23 20 L (22-32) mmol/L BUN 74 H 66 H (9-20) mg/dL Creatinine 3.35 H 2.78 H (0.66-1.25) mg/dL Estimated GFR 20 L 25 L (>60) mL/min BUN/Creatinine Ratio 22.1 H 23.7 H (6-22) Glucose 250 H 214 H (80-110) mg/dL Calcium 9.4 7.5 L (8.4-10.2) mg/dL Total Bilirubin 0.5 (0.2-1.3) mg/dL AST 15 L (17-59) IU/L ALT 16 (<50) IU/L Alkaline Phosphatase 98 (38-126) U/L Total Protein 7.6 (6.3-8.2) g/dL Albumin 4.4 (3.5-5.0) g/dL Globulin 3.2 (1.7-4.1) g/dL Albumin/Globulin Ratio 1.4 (1.0-2.8) Lipase 138 (23-300) U/L Stl C. cayetanensis PCR Not detected (Not Detect) Stool Rotavirus (PCR) Not detected (Not Detect) Stool Adenovirus (PCR) Not detected (Not Detect) Stool Astrovirus (PCR) Not detected (Not Detect) Stool Cryptosporidium PCR Not detected (Not Detect) Stl E.coli Shiga Tox PCR Not detected (Not Detect) St Sh/Enteroin Ecoli PCR Not detected (Not Detect) Stl Enterotoxigenic E PCR Not detected (Not Detect) Stool EPEC (PCR) Not detected (Not Detect) Stl E. histolytica PCR Not detected (Not Detect) Stool Giardia Lamblia PCR Not detected (Not Detect) Stool Sapovirus (PCR) Not detected (Not Detect) Stl P. shigelloides PCR Not detected (Not Detect) St Y.enterocolitica PCR Not detected (Not Detect) Stool Vibrio (PCR) Not detected (Not Detect) Stl Vibrio cholerae PCR Not detected (Not Detect) Stl Enteroaggr Ecoli PCR Detected (Not Detect) Stl Norovirus GI/GII PCR Not detected (Not Detect) Campylobacter (PCR) Not detected (Not Detect) C. difficile Tox (PCR) Not detected (Not Detect) Salmonella (PCR) Not detected (Not Detect) MDM Narrative Medical decision making narrative: Upon arrival patient did have an elevation in his creatinine from baseline however after fluids this improved. He was tolerating oral intake. His diarrhea is positive for E coli. This should be self-limiting. No indication for antibiotics. His abdomen is soft. Benign exam. I discussed this with him. We discussed the use of anti diarrhea medicines and discussed the use of staying hydrated. Discharge patient back to his living facility. He was given return precautions. He expressed understanding and agreement. Discharge Plan Departure Patient Disposition: Home Clinical Impression: Diarrhea Instructions: Diarrhea Activity Restrictions/Additional Instructions: Recommend that you increase your fluid intake. Continue to take all of your medications as directed. You can consider taking an antidiarrheal medicines such as Imodium/loperamide. Return to the emergency department for new symptoms. Prescriptions: No Action torsemide 20 mg tablet 20 mg PO QAM nystatin 100,000 unit/gram ointment 1 applic topical BID pantoprazole 40 mg Tablet,Delayed Release (Dr/Ec) 40 mg PO QAM bismuth subsalicylate [Pepto-Bismol] 262 mg/15 mL Suspension 262 mg PO Q6HR PRN (Reason: Loose Stool) docusate sodium 100 mg Capsule 200 mg PO BID aspirin 81 mg Tablet 81 mg PO QAM ferrous sulfate 325 mg (65 mg iron) Capsule, Extended Release 325 mg PO QAM atorvastatin 20 mg tablet 20 mg PO BEDTIME Lantus Solostar U-100 Insulin 100 unit/mL (3 mL) insulin pen 30 unit SUBCUT QPM Patient Comments: 5 units given at bedtime for BS 76 on 04/29/23 loperamide 2 mg capsule 2 mg PO BID PRN (Reason: Diarrhea) polyethylene glycol 3350 17 gram powder in packet 17 g PO QAM ondansetron HCl 4 mg tablet 4 mg PO Q8HR PRN (Reason: Nausea) hydrocodone-acetaminophen 5-325 mg tablet 1 tab PO Q4HR PRN (Reason: Pain (Scale Score 4-6)) potassium chloride 10 mEq tablet extended release 10 meq PO QAM acetaminophen 500 mg tablet 500 mg PO Q4HR PRN (Reason: mild pain/ fever) Rx Instructions: Max 3000/24 hours calcium carbonate [Calcium Antacid] 200 mg calcium (500 mg) tablet,chewable 400 mg PO TID Rx Instructions: with meals for CKD Referrals: Keeley Michel MD [Primary Care Provider] - Stand Alone Forms: Patient Portal/API
[2024-01-10 20:34] LABS: Adenovirus F 40/41 Not Detected (Not Detect); Astrovirus Not Detected (Not Detect); Campylobacter Not Detected (Not Detect); Clostridium difficile toxin AB Not Detected (Not Detect); Cryptosporidium Not Detected (Not Detect); Cyclospora cayetanensis Not Detected (Not Detect); Entamoeba histolytica Not Detected (Not Detect); Enteroaggregative E.coli Detected (Not Detect); Enteropathogenic E.coli Not Detected (Not Detect); Enterotoxigenic E.coli It/st Not Detected (Not Detect); Giardia lamblia Not Detected (Not Detect); Norovirus GI/GII Not Detected (Not Detect); Plesiomonsa shigelloides Not Detected (Not Detect); Rotavirus A Not Detected (Not Detect); Salmonella Not Detected (Not Detect); Sapovirus Not Detected (Not Detect); Shiga-like toxin-prod E.coli Not Detected (Not Detect); Shigella/Enteroinvasive E.coli Not Detected (Not Detect); Vibrio Not Detected (Not Detect); Vibrio cholerae Not Detected (Not Detect); Yersinia enterocolitica Not Detected (Not Detect)
[2024-01-10 21:34] LABS: BUN Creatinine Ratio 23.7 (6-22); Blood Urea Nitrogen 66 mg/dL (9-20); Calcium 7.5 mg/dL (8.4-10.2); Carbon Dioxide 20 mmol/L (22-32); Chloride 107 mmol/L (98-107); Estimated Glomerular Filt Rate 25 mL/min (>60); Glucose 214 mg/dL (80-110); HEMOLYSIS < 15 (0-50); Potassium 2.9 mmol/L (3.4-5.1); Sodium 136 mmol/L (137-145)
--- NOTE | 2024-01-10 22:43 | PC.NURSE ---
Report given to RN at [facility]. Copy of lab results provided in discharge packet to paramedics.
== END 2024-01-10 22:49 | disposition home or self-care (01) ==
PROVIDERS: Emergency Provider Emergency Medicine; PCP Internal Medicine
DX: R19.7 Diarrhea, unspecified (principal); Z79.899 Other long term (current) drug therapy
CPT/HCPCS: 36415; 80048; 80053; 83690; 85025; 87507; 96360; 96361; 99284

== ENCOUNTER → 2024-02-11 16:49 | Outpatient (ROUT) | payer MEDICARE, MEDICAID, SELFPAY ==
[2022-12-29 20:01] VITALS: BMI 37.4
[2024-02-11 17:24] LABS: BUN Creatinine Ratio 30.4 (6-22); Blood Urea Nitrogen 78 mg/dL (9-20); Calcium 10.6 mg/dL (8.4-10.2); Carbon Dioxide 26 mmol/L (22-32); Chloride 99 mmol/L (98-107); Estimated Glomerular Filt Rate 27 mL/min (>60); Glucose 226 mg/dL (80-110); HEMOLYSIS < 15 (0-50); Potassium 3.6 mmol/L (3.4-5.1); Sodium 137 mmol/L (137-145)
== END ==
PROVIDERS: PCP Internal Medicine; Visit Provider Registered Nurse
DX: N18.9 Chronic kidney disease, unspecified (principal)
CPT/HCPCS: 80048

== ENCOUNTER → 2024-02-12 17:05 | Outpatient (ROUT) | payer MEDICARE, MEDICAID, SELFPAY ==
[2022-12-29 20:01] VITALS: BMI 37.4
[2024-02-12 18:32] LABS: Adenovirus F 40/41 Not Detected (Not Detect); Astrovirus Not Detected (Not Detect); Campylobacter Not Detected (Not Detect); Clostridium difficile toxin AB Not Detected (Not Detect); Cryptosporidium Not Detected (Not Detect); Cyclospora cayetanensis Not Detected (Not Detect); Entamoeba histolytica Not Detected (Not Detect); Enteroaggregative E.coli Detected (Not Detect); Enteropathogenic E.coli Not Detected (Not Detect); Enterotoxigenic E.coli It/st Not Detected (Not Detect); Giardia lamblia Not Detected (Not Detect); Norovirus GI/GII Not Detected (Not Detect); Plesiomonsa shigelloides Not Detected (Not Detect); Rotavirus A Not Detected (Not Detect); Salmonella Not Detected (Not Detect); Sapovirus Not Detected (Not Detect); Shiga-like toxin-prod E.coli Not Detected (Not Detect); Shigella/Enteroinvasive E.coli Not Detected (Not Detect); Vibrio Not Detected (Not Detect); Vibrio cholerae Not Detected (Not Detect); Yersinia enterocolitica Not Detected (Not Detect)
== END ==
PROVIDERS: PCP Internal Medicine; Visit Provider Registered Nurse
DX: R19.7 Diarrhea, unspecified (principal)
CPT/HCPCS: 87507

== ENCOUNTER → 2024-02-19 08:01 | Outpatient (ROUT) | payer MEDICARE, MEDICAID, SELFPAY ==
[2022-12-29 20:01] VITALS: BMI 37.4
[2024-02-19 09:07] LABS: Alanine Aminotransferase 17 IU/L (<50); Albumin 3.2 g/dL (3.5-5.0); Albumin Globulin Ratio 1.3 (1.0-2.8); Alkaline Phosphatase 65 U/L (38-126); Aspartate Aminotransferase 15 IU/L (17-59); BUN Creatinine Ratio 30.4 (6-22); Bilirubin Total 0.4 mg/dL (0.2-1.3); Blood Urea Nitrogen 73 mg/dL (9-20); Calcium 8.5 mg/dL (8.4-10.2); Carbon Dioxide 24 mmol/L (22-32); Chloride 100 mmol/L (98-107); Estimated Glomerular Filt Rate 29 mL/min (>60); Globulin 2.5 g/dL (1.7-4.1); Glucose 231 mg/dL (80-110); HEMOLYSIS < 15 (0-50); Potassium 3.3 mmol/L (3.4-5.1); Sodium 134 mmol/L (137-145); Total Protein 5.7 g/dL (6.3-8.2)
== END ==
PROVIDERS: PCP Internal Medicine; Visit Provider Nurse Practitioner Family
DX: Z79.899 Other long term (current) drug therapy (principal)
CPT/HCPCS: 36415; 80053

== ENCOUNTER → 2024-02-26 06:29 | Outpatient (ROUT) | payer MEDICARE, MEDICAID, SELFPAY ==
[2022-12-29 20:01] VITALS: BMI 37.4
[2024-02-26 08:23] LABS: BUN Creatinine Ratio 24.6 (6-22); Blood Urea Nitrogen 59 mg/dL (9-20); Calcium 9.2 mg/dL (8.4-10.2); Carbon Dioxide 24 mmol/L (22-32); Chloride 102 mmol/L (98-107); Estimated Glomerular Filt Rate 29 mL/min (>60); Glucose 229 mg/dL (80-110); HEMOLYSIS < 15 (0-50); Potassium 3.8 mmol/L (3.4-5.1); Sodium 136 mmol/L (137-145)
== END ==
PROVIDERS: Internal Medicine; PCP Internal Medicine
DX: N18.9 Chronic kidney disease, unspecified (principal)
CPT/HCPCS: 36415; 80048

== ENCOUNTER → 2024-03-04 06:15 | Outpatient (ROUT) | payer MEDICARE, MEDICAID, SELFPAY ==
[2022-12-29 20:01] VITALS: BMI 37.4
[2024-03-04 07:40] LABS: HEMOLYSIS < 15 (0-50); Potassium 3.9 mmol/L (3.4-5.1)
== END ==
PROVIDERS: PCP Internal Medicine; Visit Provider Nurse Practitioner Family
DX: E87.6 Hypokalemia (principal)
CPT/HCPCS: 36415; 84132

== ENCOUNTER → 2024-06-03 06:07 | Outpatient (ROUT) | payer MEDICARE, MEDICAID, SELFPAY ==
[2022-12-29 20:01] VITALS: BMI 37.4
[2024-06-03 07:46] LABS: Hematocrit 42.1 % (41-53); Hemoglobin 13.9 g/dL (13.5-17.5); Mean Corpuscular Hemoglobin 28.6 PG (26-34); Mean Corpuscular Volume 86.5 fL (80-100); Platelet Count 285 X10^3/uL (150-400); Red Blood Cell Count 4.87 X10^6/uL (4.5-5.9); Red Cell Distribution Width 14.4 % (11.6-14.8); White Blood Cell Count 10.5 X10^3/uL (4.5-11.0)
[2024-06-03 07:54] LABS: Hemoglobin A1C% w Est Avg Glu 6.7 % (4.0-6.0)
[2024-06-03 07:59] LABS: Alanine Aminotransferase 12 IU/L (<50); Albumin 3.4 g/dL (3.5-5.0); Albumin Globulin Ratio 1.5 (1.0-2.8); Alkaline Phosphatase 74 U/L (38-126); Aspartate Aminotransferase 15 IU/L (17-59); BUN Creatinine Ratio 18.9 (6-22); Bilirubin Total 0.4 mg/dL (0.2-1.3); Blood Urea Nitrogen 47 mg/dL (9-20); Calcium 8.6 mg/dL (8.4-10.2); Carbon Dioxide 27 mmol/L (22-32); Chloride 104 mmol/L (98-107); Estimated Glomerular Filt Rate 28 mL/min (>60); Globulin 2.3 g/dL (1.7-4.1); Glucose 149 mg/dL (80-110); HEMOLYSIS < 15 (0-50); Phosphorous 3.1 mg/dL (2.3-3.7); Potassium 3.8 mmol/L (3.4-5.1); Sodium 138 mmol/L (137-145); Total Protein 5.7 g/dL (6.3-8.2)
[2024-06-04 09:36] LABS: Parathyroid Hormone Int 67 pg/mL (15-65)
== END ==
PROVIDERS: Internal Medicine Nephrology; PCP Internal Medicine
DX: N18.9 Chronic kidney disease, unspecified (principal)
CPT/HCPCS: 36415; 80053; 83036; 83735; 83970; 84100; 85027

== ENCOUNTER → 2024-06-03 18:56 | Outpatient (ROUT) | payer MEDICARE, MEDICAID, SELFPAY ==
[2022-12-29 20:01] VITALS: BMI 37.4
[2024-06-03 19:05] LABS: Bilirubin Urine UA NEGATIVE (NEGATIVE); Glucose Urine UA TRACE g/dL (Negative); Ketones Urine UA NEGATIVE (NEGATIVE); Leukocyte Esterase Urine UA 3+ (NEGATIVE); Nitrite Urine UA NEGATIVE (Negative); Occult Blood Urine UA 3+ (Negative); Protein Urine UA 2+ (Negative); Urobilinogen Urine UA 0.2 E.U./dL (0.2)
[2024-06-03 19:07] LABS: Appearance Urine UA CLOUDY; Color Urine UA RED
[2024-06-03 19:19] LABS: Bacteria Urine Few (2-10); RBC Urine >100/HPF (0-5/HPF); Squamous Epithelial Cell Urine 0-1 /HPF (0-5/HPF); Transitional Epi Cells Urine 0-1/HPF (0-5/HPF); Urine Volume 10mL (spun); WBC Urine 30-100/HPF (0-5/HPF)
[2024-06-03 19:20] LABS: Culture Indicated Urine Specimen Cultured; Mucus Urine 1+ (Negative)
[2024-06-03 19:56] LABS: Creatinine Urine Random 89.87 mg/dL; Protein (Total) Urine Random 104 mg/dL (0-12); Protein Creatinine Ratio Urine 1.15 GRAM/24H
== END ==
PROVIDERS: PCP Internal Medicine; Visit Provider Internal Medicine Nephrology
DX: N18.4 Chronic kidney disease, stage 4 (severe) (principal)
CPT/HCPCS: 36415; 80053; 81001; 82570; 83036; 83735; 83970; 84100; 84156; 85027; 87077; 87086; 87186

== ENCOUNTER → 2024-07-02 12:59 | Outpatient (CLI) | payer MEDICARE, MEDICAID, SELFPAY ==
[2022-12-29 20:01] VITALS: BMI 37.4
== END ==
PROVIDERS: Referring Provider Internal Medicine; Visit Provider Surgery
DX: E11.628 Type 2 diabetes mellitus with other skin complications (principal); L89.322 Pressure ulcer of left buttock, stage 2; L53.8 Other specified erythematous conditions; G35 Multiple sclerosis; R54 Age-related physical debility; L24.A2 Irritant contact dermatitis due to fecal, urinary or dual incontinence
CPT/HCPCS: 97602; 99213

== ENCOUNTER 2024-07-13 05:13 | Emergency (ER) | payer MEDICARE, MEDICAID, SELFPAY ==
[2022-12-29 20:01] VITALS: BMI 37.4
[2024-07-13 05:16] VITALS: PULSE 86; O2SAT 96
[2024-07-13 05:18] VITALS: BP 135/71; PULSE 88; O2SAT 96
[2024-07-13 05:19] VITALS: BP 135/71; PULSE 83; RESP 20; TEMP 36.2; O2SAT 95; BMI 35.5
--- NOTE | 2024-07-13 05:21 | ED_ITS ---
HPI - Male Genitourinary General Chief complaint: Urogenital-Male Stated complaint: blood in cath Time Seen by Provider: 07/13/24 05:20 Source: patient and EMS Mode of arrival: EMS History of Present Illness HPI Narrative: Patient with a past medical history of multiple sclerosis, neurogenic bladder with Hightower catheter, diabetes non mobile at baseline comes from facility for evaluation blood in Hightower catheter. According to the patient he has been having intermittent bloody Hightower catheter drainage over the past few days, however today it started becoming a little bit more grossly bloody states that it has been draining appropriately. Patient denies any trauma not on any blood thinners. He gets his Hightower catheter changed? as needed according to patient's facility paperwork. He denies any other symptoms at this time. Related Data Home Medications Medication Instructions Recorded Confirmed aspirin 81 mg tablet 81 mg PO QAM 12/30/20 04/30/23 bismuth subsalicylate 262 mg/15 mL 262 mg PO Q6HR PRN Loose Stool 12/30/20 04/30/23 oral suspension (Pepto-Bismol) docusate sodium 100 mg capsule 200 mg PO BID 12/30/20 04/30/23 ferrous sulfate 325 mg (65 mg 325 mg PO QAM 12/30/20 04/30/23 iron) capsule,extended release pantoprazole 40 mg tablet,delayed 40 mg PO QAM 12/30/20 04/30/23 release atorvastatin 20 mg tablet 20 mg PO BEDTIME 04/12/21 04/30/23 insulin glargine 100 unit/mL (3 30 unit SUBCUT QPM 04/12/21 04/30/23 mL) subcutaneous pen (Lantus Solostar U-100 Insulin) nystatin 100,000 unit/gram topical 1 applic topical BID 04/12/21 04/30/23 ointment torsemide 20 mg tablet 20 mg PO QAM 04/12/21 04/30/23 loperamide 2 mg capsule 2 mg PO BID PRN Diarrhea 05/10/21 04/30/23 polyethylene glycol 3350 17 gram 17 g PO QAM 05/10/21 04/30/23 oral powder packet acetaminophen 500 mg tablet 500 mg PO Q4HR PRN mild pain/ fever 11/13/22 04/30/23 calcium carbonate (Calcium Antacid) 400 mg PO TID 11/13/22 04/30/23 hydrocodone 5 mg-acetaminophen 325 1 tab PO Q4HR PRN Pain (Scale 11/13/22 04/30/23 mg tablet Score 4-6) potassium chloride 10 mEq 10 meq PO QAM 11/13/22 04/30/23 tablet,extended release ondansetron HCl 4 mg tablet 4 mg PO Q8HR PRN Nausea 12/29/22 04/30/23 Previous Rx's Medication Instructions Recorded sulfamethoxazole 800 1 tab PO BID 1 week #14 tabs 07/13/24 mg-trimethoprim 160 mg tablet (Bactrim DS) Allergies Allergy/AdvReac Type Severity Reaction Status Date / Time No Known Drug Allergies Allergy Verified 01/10/24 17:27 Review of Systems Review of Systems Narrative: General: Denies fever, chills, weight loss HEENT: Denies headache, eye drainage, eye irritation, head trauma, sore throat, voice change Cardiovascular: Denies any chest pain, palpitations, shortness of breath, tachycardia Respiratory: Denies any shortness of breath, cough, wheeze, stridor GI/: Blood in Hightower catheter, Denies any abdominal pain, nausea, vomiting, diarrhea, bright red blood per rectum, melanotic stools, urinary frequency, urinary retention, dysuria MSK: Denies any joint pain, muscle pains, swelling Skin: Denies any rashes, lesions, discoloration Neuro: Denies any headache, lightheadedness, dizziness, fainting, weakness Psych: Denies SI/HI Patient History Medical History Chronic kidney disease, stage IV (severe) History of neurogenic bladder Recurrent UTI (urinary tract infection) Stroke Neurogenic bladder Chronic anemia Chronic kidney disease Hypertension Hyperlipidemia Type 2 diabetes mellitus Multiple sclerosis Surgical History History of circumcision History of knee replacement Hx of hernia repair Family History Grandfather Coronary artery disease Brother Hyperlipidemia Hypertension Social History marital status: unmarried,single number of children: 1 household members: caregiver Smoking Status: Former smoker alcohol intake: former substance use type: does not use Smoking Status: Former smoker alcohol intake frequency: holidays/special occasions only Exam Narrative Exam Narrative: General: Cooperative, comfortable, well-developed, not in acute distress HEENT: Normocephalic, atraumatic, PERRLA, normal sclera, eyelids normal, Neck: Active full range of motion, atraumatic Chest: Normal to inspection, negative crepitus, no overlying erythema ecchymosis Respiratory: Normal respiratory effort, not in acute respiratory distress, clear to auscultation bilaterally negative cough, wheeze, tachypnea, rhonchi, rales Cardiology: Regular rate rhythm negative gallop, murmur, rubs GI/: Normal to inspection, soft, nonrigid, no tenderness to palpation, Hightower catheter in place, does have blood-tinged urine with clots noted in the Hightower catheter bag MSK: Full range of active range of motion of all 4 extremities, atraumatic Skin: No rashes lesions noted Neuro: Patient baseline non mobile, Psych: Cooperative, negative suicidal or homicidal ideations Initial Vital Signs Initial Vital Signs: Vital Signs Temperature 97.2 F L 07/13/24 05:19 Pulse Rate 83 07/13/24 05:19 Respiratory Rate 20 07/13/24 05:19 Blood Pressure 135/71 07/13/24 05:19 Pulse Oximetry 95 07/13/24 05:19 Oxygen Delivery Method Room Air 07/13/24 05:19 Course Orders Ordered: Lidocaine HCl (Lidocaine 2% (Glydo) 6 Ml Gel) 6 ml TOP NOW ONE Stop: 07/13/24 05:21 Vital Signs Vital signs: Vital Signs - 8 hr 07/13/24 05:19 Temperature 97.2 F L Pulse Rate 83 Respiratory Rate 20 Blood Pressure 135/71 Pulse Oximetry 95 Oxygen Delivery Method Room Air MDM - Male Genitourinary Differential Diagnosis Differential diagnosis: Likely other (Hightower catheter malfunction) MDM Narrative Medical decision making narrative: 63-year-old male with a history of multiple sclerosis neurogenic bladder with chronic indwelling Hightower, diabetes, presents from long-term care facility for evaluation of blood in Hightower catheter states he has been having intermittent blood in his Hightower catheter for the past 3 days but today started having more grossly red urine, patient not on any blood thinners no trauma or falls. He gets his Hightower catheter changed as needed. Last time this was change was on 06/27/2024. At time of initial evaluation I did attempt to flush the Hightower catheter with piston 60 mL placed but was unable to pull back therefore patient was changed to 3 way Hightower catheter. Patient previously had a 16 [place] ex changed for a [address] After placing [address] way Hightower catheter was able to manually irrigate a proximally 100 cc of normal saline into the bladder with removal of clear fluid of 100 cc. Patient not requiring continuous bladder irrigation at this time, however given the fact that patient had clogged Hightower catheter with blood clot will prophylactically treat him for a urinary tract infection. First dose of antibiotics here. Patient was given strict return precautions understands and agrees with being discharged back to facility. Further workup or intervention needed at this time Given patient with gross hematuria with clots we will treat patient for urinary tract infection review of records show patient had urine culture and sensitivity of the scar on 06/03/2024 showed sensitivity to bactrim. Discharge Plan Departure Patient Disposition: Home Clinical Impression: Complication, blocked Hightower catheter Instructions: How to Care for Your Hightower Catheter -- Male Activity Restrictions/Additional Instructions: Please follow up with Urology and your primary care doctor Please read the discharge instructions sheet carefully and bring all papers to all doctor follow-up visits, as it may contain information that your doctor may want to see. Disease processes change and evolve, if your symptoms worsen or if you develop any new symptoms that are concerning to you please return for evaluation. Your evaluation today does not show any evidence of any life- threatening/serious illnesses requiring admission to the hospital or surgery. Please follow-up with your doctor for re-evaluation in approximately 1 day. Seek immediate medical attention for any worrisome symptoms. *If you do not have a primary care provider please contact the [facility] Resource line at [phone]. They will ask some questions about your medical history and help get you set up with a doctor in the community. Prescriptions: New sulfamethoxazole-trimethoprim [Bactrim DS] 800-160 mg tablet 1 tab PO BID 7 Days Qty: 14 0RF No Action torsemide 20 mg tablet 20 mg PO QAM nystatin 100,000 unit/gram ointment 1 applic topical BID pantoprazole 40 mg Tablet,Delayed Release (Dr/Ec) 40 mg PO QAM bismuth subsalicylate [Pepto-Bismol] 262 mg/15 mL Suspension 262 mg PO Q6HR PRN (Reason: Loose Stool) docusate sodium 100 mg Capsule 200 mg PO BID aspirin 81 mg Tablet 81 mg PO QAM ferrous sulfate 325 mg (65 mg iron) Capsule, Extended Release 325 mg PO QAM atorvastatin 20 mg tablet 20 mg PO BEDTIME Lantus Solostar U-100 Insulin 100 unit/mL (3 mL) insulin pen 30 unit SUBCUT QPM Patient Comments: 5 units given at bedtime for BS 76 on 04/29/23 loperamide 2 mg capsule 2 mg PO BID PRN (Reason: Diarrhea) polyethylene glycol 3350 17 gram powder in packet 17 g PO QAM ondansetron HCl 4 mg tablet 4 mg PO Q8HR PRN (Reason: Nausea) hydrocodone-acetaminophen 5-325 mg tablet 1 tab PO Q4HR PRN (Reason: Pain (Scale Score 4-6)) potassium chloride 10 mEq tablet extended release 10 meq PO QAM acetaminophen 500 mg tablet 500 mg PO Q4HR PRN (Reason: mild pain/ fever) Rx Instructions: Max 3000/24 hours calcium carbonate [Calcium Antacid] 200 mg calcium (500 mg) tablet,chewable 400 mg PO TID Rx Instructions: with meals for CKD Referrals: Miscellaneous,Doctor, MD [Primary Care Provider] - Stand Alone Forms: Patient Portal/API/Survey
[2024-07-13 05:30] VITALS: BP 131/70; PULSE 84; O2SAT 95
[2024-07-13 06:00] VITALS: BP 128/63; PULSE 84; O2SAT 95
[2024-07-13] MEDS: LIDOCAINE 2% (GLYDO) 6 ML GEL TOP (06:00)
[2024-07-13] MEDS: TRIMETH/SULFA 160/800 (DS) TABLET 1 TAB PO (06:00)
[2024-07-13 06:30] VITALS: BP 107/61; PULSE 76; RESP 18; O2SAT 95
== END 2024-07-13 07:14 | disposition home or self-care (01) ==
PROVIDERS: Emergency Provider Student in an Organized Health Care Education/Training Program
DX: T83.098A Other mechanical complication of other urinary catheter, initial encounter (principal); T83.83XA Hemorrhage due to genitourinary prosthetic devices, implants and grafts, initial encounter; Y73.1 Therapeutic (nonsurgical) and rehabilitative gastroenterology and urology devices associated with adverse incidents
CPT/HCPCS: 51702; 99283; 99284

== ENCOUNTER → 2024-07-15 11:18 | Outpatient (CLI) | payer MEDICARE, MEDICAID, SELFPAY ==
[2022-12-29 20:01] VITALS: BMI 37.4
== END ==
PROVIDERS: Referring Provider Internal Medicine; Visit Provider Surgery
DX: E11.628 Type 2 diabetes mellitus with other skin complications (principal); L89.322 Pressure ulcer of left buttock, stage 2; G35 Multiple sclerosis; R54 Age-related physical debility; L53.8 Other specified erythematous conditions; L24.A2 Irritant contact dermatitis due to fecal, urinary or dual incontinence
CPT/HCPCS: 99212; 99213

== ENCOUNTER → 2024-07-29 13:22 | Outpatient (CLI) | payer MEDICARE, MEDICAID, SELFPAY ==
[2022-12-29 20:01] VITALS: BMI 37.4
== END ==
PROVIDERS: Referring Provider Internal Medicine; Visit Provider Surgery
DX: L89.322 Pressure ulcer of left buttock, stage 2 (principal); G60.9 Hereditary and idiopathic neuropathy, unspecified; L53.8 Other specified erythematous conditions; G35 Multiple sclerosis; R54 Age-related physical debility
CPT/HCPCS: 99213

== ENCOUNTER → 2024-08-26 06:12 | Outpatient (ROUT) | payer MEDICARE, MEDICAID, SELFPAY ==
[2022-12-29 20:01] VITALS: BMI 37.4
[2024-08-26 08:20] LABS: Hematocrit 41.7 % (41-53); Hemoglobin 14.1 g/dL (13.5-17.5); Mean Corpuscular HGB Conc 33.8 % (30-36); Mean Corpuscular Volume 85.6 fL (80-100); Platelet Count 282 X10^3/uL (150-400); Red Blood Cell Count 4.87 X10^6/uL (4.5-5.9); Red Cell Distribution Width 15.3 % (11.6-14.8); White Blood Cell Count 9.5 X10^3/uL (4.5-11.0)
[2024-08-26 08:32] LABS: Hemoglobin A1C% w Est Avg Glu 6.3 % (4.0-6.0)
[2024-08-26 08:38] LABS: Alanine Aminotransferase 13 IU/L (<50); Albumin 3.4 g/dL (3.5-5.0); Albumin Globulin Ratio 1.5 (1.0-2.8); Alkaline Phosphatase 82 U/L (38-126); Aspartate Aminotransferase 14 IU/L (17-59); BUN Creatinine Ratio 18.1 (6-22); Bilirubin Total 0.4 mg/dL (0.2-1.3); Blood Urea Nitrogen 41 mg/dL (9-20); Calcium 8.8 mg/dL (8.4-10.2); Carbon Dioxide 28 mmol/L (22-32); Chloride 102 mmol/L (98-107); Estimated Glomerular Filt Rate 31 mL/min (>60); Globulin 2.3 g/dL (1.7-4.1); Glucose 126 mg/dL (80-110); HEMOLYSIS < 15 (0-50); Magnesium 1.9 mg/dL (1.6-2.3); Phosphorous 3.7 mg/dL (2.3-3.7); Potassium 3.8 mmol/L (3.4-5.1); Sodium 139 mmol/L (137-145); Total Protein 5.7 g/dL (6.3-8.2)
[2024-08-26 22:47] LABS: Bilirubin Urine UA NEGATIVE (NEGATIVE); Color Urine UA YELLOW; Glucose Urine UA NEGATIVE (Negative); Ketones Urine UA NEGATIVE (NEGATIVE); Leukocyte Esterase Urine UA 3+ (NEGATIVE); Nitrite Urine UA NEGATIVE (Negative); Occult Blood Urine UA 2+ (Negative); Protein Urine UA 1+ (Negative); Urobilinogen Urine UA 0.2 E.U./dL (0.2)
[2024-08-26 22:52] LABS: Appearance Urine UA SL CLOUDY
[2024-08-26 22:53] LABS: Bacteria Urine Moderate (10-30); Culture Indicated Urine Specimen Cultured; RBC Urine 10-30/HPF (0-5/HPF); Squamous Epithelial Cell Urine 0-1 /HPF (0-5/HPF); Urine Volume 10mL (spun); WBC Urine 30-100/HPF (0-5/HPF)
[2024-08-26 23:38] LABS: Creatinine Urine Random 76.76 mg/dL; Protein (Total) Urine Random 61 mg/dL (0-12); Protein Creatinine Ratio Urine 0.79 GRAM/24H
[2024-08-27 07:09] LABS: Parathyroid Hormone Int 46 pg/mL (15-65)
== END ==
PROVIDERS: Internal Medicine Nephrology
DX: N18.4 Chronic kidney disease, stage 4 (severe) (principal)
CPT/HCPCS: 36415; 80053; 81001; 82570; 83036; 83735; 83970; 84100; 84156; 85027; 87086

== ENCOUNTER → 2024-08-26 11:02 | Outpatient (CLI) | payer MEDICARE, MEDICAID, SELFPAY ==
[2022-12-29 20:01] VITALS: BMI 37.4
== END ==
PROVIDERS: Visit Provider Surgery
DX: L89.323 Pressure ulcer of left buttock, stage 3 (principal); G35 Multiple sclerosis; R54 Age-related physical debility; L24.A2 Irritant contact dermatitis due to fecal, urinary or dual incontinence; L53.8 Other specified erythematous conditions
CPT/HCPCS: 11042; 99213

== ENCOUNTER → 2024-09-16 09:53 | Outpatient (CLI) | payer MEDICARE, MEDICAID, SELFPAY ==
[2022-12-29 20:01] VITALS: BMI 37.4
== END ==
LOC: WC 09:54
PROVIDERS: Referring Provider Nurse Practitioner Family; Visit Provider Surgery
DX: E11.628 Type 2 diabetes mellitus with other skin complications (principal); L89.323 Pressure ulcer of left buttock, stage 3; G35 Multiple sclerosis; R54 Age-related physical debility
CPT/HCPCS: 99213

== ENCOUNTER → 2024-09-30 10:32 | Outpatient (CLI) | payer MEDICARE, MEDICAID, SELFPAY ==
[2022-12-29 20:01] VITALS: BMI 37.4
== END ==
PROVIDERS: Visit Provider Surgery
DX: E11.628 Type 2 diabetes mellitus with other skin complications (principal); L89.313 Pressure ulcer of right buttock, stage 3; G35 Multiple sclerosis; N18.9 Chronic kidney disease, unspecified; E11.22 Type 2 diabetes mellitus with diabetic chronic kidney disease
CPT/HCPCS: 11042; 99213

== ENCOUNTER → 2024-10-14 10:55 | Outpatient (CLI) | payer MEDICARE, MEDICAID, SELFPAY ==
[2022-12-29 20:01] VITALS: BMI 37.4
== END ==
LOC: WC 10:56
PROVIDERS: Referring Provider Registered Nurse; Visit Provider Surgery
DX: E11.628 Type 2 diabetes mellitus with other skin complications (principal); L89.323 Pressure ulcer of left buttock, stage 3; L89.313 Pressure ulcer of right buttock, stage 3; G35 Multiple sclerosis; L53.9 Erythematous condition, unspecified; E11.22 Type 2 diabetes mellitus with diabetic chronic kidney disease; N18.6 End stage renal disease; Z99.3 Dependence on wheelchair; L24.A2 Irritant contact dermatitis due to fecal, urinary or dual incontinence; R54 Age-related physical debility
CPT/HCPCS: 97602; 99213

== ENCOUNTER → 2024-10-28 14:00 | Outpatient (CLI) | payer MEDICARE, MEDICAID, SELFPAY ==
[2022-12-29 20:01] VITALS: BMI 37.4
== END ==
LOC: WC 14:02
PROVIDERS: Referring Provider Nurse Practitioner Family; Visit Provider Surgery
DX: L89.323 Pressure ulcer of left buttock, stage 3 (principal); L89.313 Pressure ulcer of right buttock, stage 3; G35 Multiple sclerosis; L24.A2 Irritant contact dermatitis due to fecal, urinary or dual incontinence; R54 Age-related physical debility
CPT/HCPCS: 99213; 99214

== ENCOUNTER → 2024-11-11 09:39 | Outpatient (CLI) | payer MEDICARE, MEDICAID, SELFPAY ==
[2022-12-29 20:01] VITALS: BMI 37.4
== END ==
LOC: WC 10:09
PROVIDERS: Visit Provider Surgery
DX: E11.628 Type 2 diabetes mellitus with other skin complications (principal); L89.323 Pressure ulcer of left buttock, stage 3; L89.313 Pressure ulcer of right buttock, stage 3; G35 Multiple sclerosis; R54 Age-related physical debility; L24.A2 Irritant contact dermatitis due to fecal, urinary or dual incontinence; E11.22 Type 2 diabetes mellitus with diabetic chronic kidney disease; N18.6 End stage renal disease
CPT/HCPCS: 99213

== ENCOUNTER → 2024-11-19 16:15 | Outpatient (ROUT) | payer MEDICARE, MEDICAID, SELFPAY ==
[2022-12-29 20:01] VITALS: BMI 37.4
[2024-11-19 17:24] LABS: Appearance Urine UA CLOUDY; Bilirubin Urine UA NEGATIVE (NEGATIVE); Color Urine UA YELLOW; Glucose Urine UA NEGATIVE (Negative); Ketones Urine UA NEGATIVE (NEGATIVE); Leukocyte Esterase Urine UA 3+ (NEGATIVE); Nitrite Urine UA NEGATIVE (Negative); Occult Blood Urine UA 3+ (Negative); Protein Urine UA NEGATIVE (Negative); Specific Gravity Urine UA <=1.005 (1.000-1.035); Urobilinogen Urine UA 0.2 E.U./dL (0.2); pH Urine UA 5.5 (4.5-8.0)
[2024-11-19 17:43] LABS: Culture Indicated Urine Specimen Cultured
== END ==
PROVIDERS: Visit Provider Registered Nurse
DX: R52 Pain, unspecified (principal)
CPT/HCPCS: 81001; 87077; 87086; 87186

== ENCOUNTER → 2024-11-25 11:07 | Outpatient (CLI) | payer MEDICARE, MEDICAID, SELFPAY ==
[2022-12-29 20:01] VITALS: BMI 37.4
== END ==
LOC: WC 11:08
PROVIDERS: Visit Provider Nurse Practitioner Family
DX: L89.323 Pressure ulcer of left buttock, stage 3 (principal); L89.313 Pressure ulcer of right buttock, stage 3; G35 Multiple sclerosis; R54 Age-related physical debility; L24.A2 Irritant contact dermatitis due to fecal, urinary or dual incontinence
CPT/HCPCS: 99213

== ENCOUNTER 2024-12-19 14:24 | Inpatient (IN) | payer MEDICARE, MEDICAID, SELFPAY ==
[2022-12-29 20:01] VITALS: BMI 37.4
[2024-12-19] VITALS (58 sets, daily range): BP systolic 82–136; BP diastolic 43–82; PULSE 93–136; RESP 13–38; TEMP 37.3–37.8; O2SAT 92–99; BMI 34.0
--- NOTE | 2024-12-19 14:40 | DI.RAD.S_ITS ---
PROCEDURE: XR CHEST 1V INDICATIONS: fever TECHNIQUE: One view of the chest was acquired. COMPARISON: [facility], CR, XR CHEST 1V, 12/28/2022, 21:31. FINDINGS: Surgical changes and devices: None. Lungs and pleura: Lungs are clear. No pleural effusions or pneumothorax. Mediastinum: Mediastinal contours appear normal. Heart size is normal. Bones and chest wall: No suspicious bony lesions. Overlying soft tissues appear unremarkable. IMPRESSION: No acute cardiopulmonary abnormality is seen. Dictated by: Juan Miguel Vaughn M.D. on 12/19/2024 at 14:44 Approved by: Juan Miguel Vaughn M.D. on 12/19/2024 at 14:48
--- NOTE | 2024-12-19 14:40 | ED.GENADULT ---
HPI - General Adult General Chief complaint: Altered Mental Status Stated complaint: N/V Time Seen by Provider: 12/19/24 14:34 Source: EMS Mode of arrival: EMS History of Present Illness HPI narrative: 64-year-old gentleman with history of multiple sclerosis, lives at [facility] living Facility bed/wheelchair-bound chronic indwelling Hightower catheter, diabetes, chronic kidney disease with left upper extremity fistula but has not yet needed to initiate dialysis presents today simply not feeling well had an episode of emesis. Complains of total body aches, started this morning, no abdominal pain no chest pain. He does not note that he had any aspiration with a single episode of emesis. Related Data Home Medications ?Medication ?Instructions ?Recorded ?Confirmed aspirin 81 mg tablet 81 mg PO QAM 12/30/20 04/30/23 bismuth subsalicylate 262 mg/15 mL 262 mg PO Q6HR PRN Loose Stool 12/30/20 04/30/23 oral suspension (Pepto-Bismol) docusate sodium 100 mg capsule 200 mg PO BID 12/30/20 04/30/23 ferrous sulfate 325 mg (65 mg 325 mg PO QAM 12/30/20 04/30/23 iron) capsule,extended release pantoprazole 40 mg tablet,delayed 40 mg PO QAM 12/30/20 04/30/23 release atorvastatin 20 mg tablet 20 mg PO BEDTIME 04/12/21 04/30/23 insulin glargine 100 unit/mL (3 30 unit SUBCUT QPM 04/12/21 04/30/23 mL) subcutaneous pen (Lantus Solostar U-100 Insulin) nystatin 100,000 unit/gram topical 1 applic topical BID 04/12/21 04/30/23 ointment torsemide 20 mg tablet 20 mg PO QAM 04/12/21 04/30/23 loperamide 2 mg capsule 2 mg PO BID PRN Diarrhea 05/10/21 04/30/23 polyethylene glycol 3350 17 gram 17 g PO QAM 05/10/21 04/30/23 oral powder packet acetaminophen 500 mg tablet 500 mg PO Q4HR PRN mild pain/ fever 11/13/22 04/30/23 calcium carbonate (Calcium Antacid) 400 mg PO TID 11/13/22 04/30/23 hydrocodone 5 mg-acetaminophen 325 1 tab PO Q4HR PRN Pain (Scale 11/13/22 04/30/23 mg tablet Score 4-6) potassium chloride 10 mEq 10 meq PO QAM 11/13/22 04/30/23 tablet,extended release ondansetron HCl 4 mg tablet 4 mg PO Q8HR PRN Nausea 12/29/22 04/30/23 Allergies Allergy/AdvReac Type Severity Reaction Status Date / Time No Known Drug Allergies Allergy Verified 12/19/24 14:35 Review of Systems Review of Systems Narrative: Pertinent positive and negative findings as per HPI Patient History Medical History Chronic kidney disease, stage IV (severe) History of neurogenic bladder Recurrent UTI (urinary tract infection) Stroke Neurogenic bladder Chronic anemia Chronic kidney disease Hypertension Hyperlipidemia Type 2 diabetes mellitus Multiple sclerosis Surgical History History of circumcision History of knee replacement Hx of hernia repair Family History Grandfather Coronary artery disease Brother Hyperlipidemia Hypertension Social History marital status: unmarried,single number of children: 1 household members: caregiver alcohol intake: former substance use type: does not use alcohol intake frequency: holidays/special occasions only Exam Initial Vital Signs Initial Vital Signs: Vital Signs Temperature 99.1 F 12/19/24 14:35 Pulse Rate 117 H 12/19/24 14:35 Respiratory Rate 19 12/19/24 14:35 Blood Pressure 113/69 12/19/24 14:35 Pulse Oximetry 96 12/19/24 14:35 Oxygen Delivery Method Room Air 12/19/24 14:35 General: Chronically ill-appearing secondary to his multiple sclerosis, somewhat pale, warm to the touch HEENT: Moist mucous membranes, normal sclera with reactive pupils, Respiratory: Lungs are clear to auscultation, no wheezing no rales no rhonchi. Shallow breaths secondary to his MS but otherwise Full and symmetrical air movement Cardiac: Tachycardic, Regular rate and rhythm no murmurs no bruits Abdomen: Soft, nontender, no rebound or guarding, no flank pain Skin: Pale, warm to the touch Neurologic: Significant neurologic abnormalities with his advanced MS. He feels that he is at his neurologic baseline Extremities: Multiple contractures secondary to MS, no obvious trauma Psych: Cooperative, appropriate insight and affect Procedures Central Line Placement Right IJ: Time of procedure: 17:36 Patient Placed on Monitor/Pulse Ox: Yes MD Prep: mask, gown and gloves Central Line Prep: Chlorhexidine scrub Local Anesthetic: lidocaine 1% Amount of anesthesia used (mL): 3 Ultrasound Used for Placement: Yes Central Line Lumen Inserted: triple Post Procedure: sutured in place, good blood return, all ports aspirated, flushed, capped, sterile dressing applied and line stabilization device Post Procedure X-Ray: tip of catheter in good position and no pneumothorax seen Patient Tolerated Procedure: Well Complications: none Course Orders Ordered: ED Orders 12/19/24 14:39 Blood Culture Stat Complete Blood Count AUTO DIFF Stat Comprehensive Metabolic Panel Stat Lactate (Lactic Acid) Stat Lipase Stat Magnesium Stat 12/19/24 14:40 XR chest 1V Stat 12/19/24 16:00 CT abdomen pelvis wo con Stat UA Complete [Urinalysis and Microscopic] Stat 12/19/24 17:43 XR chest for PICC 1V Stat NOREPINEPHRINE BITARTRATE/D5W (Levophed) 4 mg in 250 mls @ 39.803 mls/hr IV TITRATE AMINATA; Protocol Last Admin: 12/19/24 17:36 Dose: 0.1 mcg/kg/min, 39.803 mls/hr Discontinued Medications Acetaminophen (Acetaminophen 325 Mg Tablet) 975 mg PO NOW ONE Stop: 12/19/24 14:39 Last Admin: 12/19/24 15:40 Dose: 975 mg Sodium Chloride (Normal Saline 0.9%) 1,000 mls @ 1,000 mls/hr IV BOLUS ONE Stop: 12/19/24 15:37 Last Infusion: 12/19/24 17:15 Dose: Infused Piperacillin Sod/Tazobactam (Sod 4.5 gm/ Sodium Chloride) 100 mls @ 200 mls/hr IV NOW ONE Stop: 12/19/24 15:59 Last Infusion: 12/19/24 17:39 Dose: Infused Sodium Chloride (Normal Saline 0.9%) 1,000 mls @ 1,000 mls/hr IV BOLUS ONE Stop: 12/19/24 16:58 Last Admin: 12/19/24 16:24 Dose: 1,000 mls/hr Ondansetron HCl (Ondansetron 4 Mg/2 Ml Inj) 4 mg IV NOW ONE Stop: 12/19/24 14:39 Last Admin: 12/19/24 15:41 Dose: 4 mg Vital Signs Vital signs: Vital Signs - 8 hr 12/19/24 14:35 12/19/24 15:40 12/19/24 15:56 Temperature 99.1 F 99.1 F Pulse Rate 117 H 120 H Respiratory Rate 19 20 Blood Pressure 113/69 Pulse Oximetry 96 97 Oxygen Delivery Method Room Air 12/19/24 15:57 12/19/24 15:57 12/19/24 16:00 Temperature Pulse Rate 118 H Respiratory Rate 16 Blood Pressure 131/58 L 123/60 Pulse Oximetry 96 Oxygen Delivery Method 12/19/24 16:00 12/19/24 16:30 12/19/24 16:49 Temperature Pulse Rate 116 H 114 H Respiratory Rate 20 17 Blood Pressure 92/53 L Pulse Oximetry 95 96 Oxygen Delivery Method 12/19/24 16:49 12/19/24 17:00 12/19/24 17:00 Temperature Pulse Rate 109 H 109 H Respiratory Rate 20 19 Blood Pressure 92/49 L Pulse Oximetry 96 98 Oxygen Delivery Method 12/19/24 17:02 12/19/24 17:02 12/19/24 17:02 Temperature Pulse Rate 111 H Respiratory Rate 13 Blood Pressure 90/53 L 90/53 L Pulse Oximetry 96 Oxygen Delivery Method 12/19/24 17:06 12/19/24 17:06 12/19/24 17:06 Temperature 99.6 F Pulse Rate 106 H Respiratory Rate 18 17 Blood Pressure 86/47 L 86/47 L Pulse Oximetry 96 Oxygen Delivery Method 12/19/24 17:07 12/19/24 17:07 12/19/24 17:07 Temperature Pulse Rate 104 H Respiratory Rate 26 H Blood Pressure 86/51 L 86/51 L Pulse Oximetry 95 Oxygen Delivery Method 12/19/24 17:08 12/19/24 17:08 12/19/24 17:08 Temperature Pulse Rate 107 H Respiratory Rate 26 H Blood Pressure 88/53 L 88/53 L Pulse Oximetry 94 Oxygen Delivery Method 12/19/24 17:16 12/19/24 17:16 12/19/24 17:20 Temperature Pulse Rate 101 H 101 H Respiratory Rate 23 27 H Blood Pressure 82/45 L Pulse Oximetry 95 95 Oxygen Delivery Method 12/19/24 17:20 12/19/24 17:25 12/19/24 17:25 Temperature Pulse Rate 105 H Respiratory Rate 25 H Blood Pressure 87/50 L 93/50 L Pulse Oximetry 96 Oxygen Delivery Method 12/19/24 17:30 12/19/24 17:30 12/19/24 17:35 Temperature Pulse Rate 106 H Respiratory Rate 26 H Blood Pressure 93/53 L 86/49 L Pulse Oximetry 97 Oxygen Delivery Method 12/19/24 17:35 12/19/24 17:38 Temperature 99.6 F Pulse Rate 102 H Respiratory Rate 27 H Blood Pressure Pulse Oximetry 96 Oxygen Delivery Method Medical Decision Making Lab Data 12/19/24 15:20 12/19/24 15:20 Labs: Lab Results 12/19/24 12/19/24 Range/Units 14:33 15:20 WBC 27.9 H (4.5-11.0) X10^3/uL RBC 5.25 (4.5-5.9) X10^6/uL Hgb 15.0 (13.5-17.5) g/dL Hct 44.9 (41-53) % MCV 85.5 (80-100) fL MCH 28.6 (26-34) PG MCHC 33.5 (30-36) % RDW 14.9 H (11.6-14.8) % Plt Count 305 (150-400) X10^3/uL Neut % (Auto) Not Reportable Lymph % (Auto) Not Reportable [place] % (Auto) Not Reportable Eos % (Auto) Not Reportable Baso % (Auto) Not Reportable Lymph # (Auto) Not Reportable [place] # (Auto) Not Reportable Baso # (Auto) Not Reportable Total Counted 100 Seg Neutrophils % 90.0 H (38-70) % Band Neutrophils % 5.0 (3-7) % Monocytes % (Manual) 5.0 (2-11) % Neutrophils # (Manual) 54160 H (2275-5471) /uL RBC Morphology Normal morphology Sodium 138 (137-145) mmol/L Potassium 4.1 (3.4-5.1) mmol/L Chloride 99 (98-107) mmol/L Carbon Dioxide 26 (22-32) mmol/L BUN 74 H (9-20) mg/dL Creatinine 2.96 H (0.66-1.25) mg/dL Estimated GFR 23 L (>60) mL/min BUN/Creatinine Ratio 25.0 H (6-22) Glucose 191 H (70-99) mg/dL POC Whole Bld Glucose 177 H (70-99) mg/dL Lactate 2.0 (0.7-2.1) mmol/L Calcium 9.0 (8.4-10.2) mg/dL Magnesium 2.0 (1.6-2.3) mg/dL Total Bilirubin 0.8 (0.2-1.3) mg/dL AST 30 (17-59) IU/L ALT 27 (<50) IU/L Alkaline Phosphatase 95 (38-126) U/L Total Protein 7.4 (6.3-8.2) g/dL Albumin 4.1 (3.5-5.0) g/dL Globulin 3.3 (1.7-4.1) g/dL Albumin/Globulin Ratio 1.2 (1.0-2.8) Lipase 84 (23-300) U/L MDM Narrative Medical decision making narrative: CC: Weakness and vomiting Complicating co-morbidities: Advanced MS, wheelchair/bed-bound, lives at [facility] living [facility], chronic kidney disease has a fistula but has not required dialysis Data collected from: patient, medics Medical records reviewed: Patient has been seen in the emergency department previously for complications with Hightower catheter, diarrhea Differential considered: Sepsis, urinary tract infection, viral syndrome, pneumonia Exam documented above, pertinent findings include: Patient has advanced MS, slightly warm to the touch, alert but dysarthric speech secondary to his MS. Globally weak. No obvious skin changes to suggest acute cellulitis. Belly is not significantly tender and certainly not an acute surgical abdomen Lab Test results independently reviewed as above. Pertinent findings: [place] [address], no anemia Chemistries show appropriate electrolytes. Creatinine at 2.9 his baseline appears to be in the 2.2-2.5 range. Liver studies are unremarkable Lipase is normal Imaging studies independently reviewed: Chest x-ray is unremarkable CT abdomen is pending at time of admission Consultations: Discussed with Dr. Barker, hospitalist Treatments: Central line placed, Levophed started Re-evaluations: 5pm blood pressure is falling. With concern for developing sepsis, patient has moved to large room, central line will be placed. Blood cultures have already been obtained does not has been initiated. Hightower catheter was replaced, waiting for urine to be produced from the catheter. It has not been replaced for over a month. Antibiotics have been initiated, 2nd L of fluid is started CT scan of the abdomen has been ordered Discussion: 64-year-old gentleman history of multiple sclerosis currently in assisted living, wheelchair-bound, notes that he had COVID diagnosed last week that consisted of a runny nose. Presents today with increasing fatigue. Blood work showed a white count of 27.9 without localizing infection symptoms. He was tachycardic but not hypotensive on arrival. Chest x-ray does not suggest pneumonia. Hightower catheter is replaced and urine we will be obtained from the clean Hightower. Zosyn is started presumptively for urinary tract infection. Most recent urine showed 50-51301 colony-forming units of Proteus that was sensitive to Zosyn and that was November 19. CT scan of the abdomen has been ordered to make sure we are not missing other source of infection. He is not having any abdominal pain. Does have some minor redness over his sacrum without infection. Renal function is slightly worse, he has been making urine. Care is discussed with Dr. Barker hospitalist and patient will be admitted to our intensive care unit for further treatment and further diagnostic studies. Critical Care Time Critical Care Time Critical Care Time: Yes Total Critical Care Time: 33 Attestation: Critical care time is separate from other billable procedures. There is a high probability of a significant, sudden or life-threatening deterioration that requires my full and direct attention, intervention and personal management. This critical care time includes consultation with family and other consulting doctors, review of records, and interpretation of data from labs, EKGs and imaging as well as managements of developing sepsis, central line placement, blood pressure management with IV medications and consideration of multiple diagnostic possibilities Discharge Plan Departure Patient Disposition: Admitted As Inpatient Clinical Impression: Multiple sclerosis, Acute UTI Sepsis Qualifiers: Sepsis type: sepsis due to unspecified organism Sepsis acute organ dysfunction status: with acute organ dysfunction Severe sepsis acute organ dysfunction type: acute renal failure Acute renal failure type: unspecified Severe sepsis shock status: unspecified Qualified Code(s): A41.9 - Sepsis, unspecified organism
--- NOTE | 2024-12-19 14:50 | PC.NURSE ---
PT arrives by EMS for weakness Pt uses WC/bedbound, has advanced MS. Denies pain. Pt is slurring words, difficult to understand. Sleeping intermittently.
[2024-12-19] MEDS: ACETAMINOPHEN 325 MG TABLET 975 MG PO (15:40)
[2024-12-19] MEDS: ONDANSETRON 4 MG/2 ML INJ IV (15:41)
[2024-12-19] MEDS: SODIUM CHLORIDE 0.9% 1,000 ML 1000 ML IV ×2 (15:41→16:24)
[2024-12-19 15:48] LABS: Lactate (Lactic Acid) 2.0 mmol/L (0.7-2.1)
[2024-12-19 15:49] LABS: Alanine Aminotransferase 27 IU/L (<50); Albumin 4.1 g/dL (3.5-5.0); Albumin Globulin Ratio 1.2 (1.0-2.8); Alkaline Phosphatase 95 U/L (38-126); Blood Urea Nitrogen 74 mg/dL (9-20); Calcium 9.0 mg/dL (8.4-10.2); Carbon Dioxide 26 mmol/L (22-32); Chloride 99 mmol/L (98-107); Estimated Glomerular Filt Rate 23 mL/min (>60); Globulin 3.3 g/dL (1.7-4.1); Glucose 191 mg/dL (70-99); HEMOLYSIS < 15 (0-50); Lipase 84 U/L (23-300); Magnesium 2.0 mg/dL (1.6-2.3); Potassium 4.1 mmol/L (3.4-5.1); Sodium 138 mmol/L (137-145); Total Protein 7.4 g/dL (6.3-8.2)
[2024-12-19 15:50] LABS: Add Manual Diff / Slide Review YES; Hematocrit 44.9 % (41-53); Hemoglobin 15.0 g/dL (13.5-17.5); Mean Corpuscular HGB Conc 33.5 % (30-36); Mean Corpuscular Hemoglobin 28.6 PG (26-34); Mean Corpuscular Volume 85.5 fL (80-100); Platelet Count 305 X10^3/uL (150-400)
--- NOTE | 2024-12-19 16:00 | DI.CT.S_ITS ---
PROCEDURE: CT ABDOMEN PELVIS WO CON INDICATIONS: altered mental status, leukocytosis TECHNIQUE: CT of the abdomen and pelvis was obtained without intravenous contrast. Coronal and sagittal reformats were performed. For radiation dose reduction, the following was used: automated exposure control, adjustment of mA and/or kV according to patient size. COMPARISON: None. FINDINGS: Image quality: Diagnostic. Lower Chest: No significant findings. ABDOMEN: Liver: No contour-deforming mass. Gallbladder: No radiopaque gallstones or wall thickening. Biliary ducts: No biliary dilation. Pancreas: No ductal dilation. Spleen: Size is within normal limits. Adrenal Glands: No adrenal nodules. Kidneys and Ureters: Enlargement of the right kidney with hydronephrosis and hydroureter. Right greater than left perinephric fat stranding. Bilateral renal calcifications. A distal right ureteral stone measuring 7 mm with average density of 222 Hounsfield units. There are least 4 more additional right renal stones the largest measuring 4 mm. Slightly atrophic appearing right kidney with collecting system calcifications measuring up to 6 mm with average density measuring 167 Hounsfield units. Stomach and Bowel: Normal colonic caliber, without significant wall thickening. Peritoneum: No abnormal intraperitoneal fluid. No free air. Ventral Wall: No significant hernia. Abdominal Nodes: Mild Cecilia aortic lymphadenopathy most prominent at the level of the kidneys. Vessels: Aorta and inferior vena cava are normal in size. PELVIS: Pelvic Organs: Unremarkable. Bladder: Unremarkable. Pelvic Nodes: No enlarged lymph nodes. Miscellaneous: No inguinal hernias are seen. Bones: No aggressive osseous abnormality. IMPRESSION: 1. Obstructive right ureteral stone measuring 8 mm resulting in moderate to severe hydronephrosis and increased perinephric fat stranding. 2. Slight periaortic lymphadenopathy, likely reactive. 3. Additional nonobstructive renal calcifications. Dictated by: Juan Miguel Vaughn M.D. on 12/19/2024 at 17:08 Approved by: Juan Miguel Vaughn M.D. on 12/19/2024 at 17:15
[2024-12-19 16:15] LABS: Band Neutrophils Percent 5.0 % (3-7); Monocytes Percent Manual 5.0 % (2-11); Neutrophils Absolute Manual 26505 /uL (3000-5900); RBC Morphology Normal Morphology; Segmented Neutrophils Percent 90.0 % (38-70); Total Cells Counted 100
[2024-12-19] MEDS: PIPERACILLIN/TAZO 4.5 GM in SODIUM CHLORIDE 0.9% 100 ML IV (16:23)
[2024-12-19] MEDS: NOREPINEPHRINE BITARTRATE/D5W 4 MG/250 ML PLAST..BAG 39.803 MG IV (17:36)
--- NOTE | 2024-12-19 17:43 | DI.RAD.S_ITS ---
PROCEDURE: XR CHEST FOR PICC 1V INDICATIONS: CENTRAL LINE TECHNIQUE: One view of the chest was acquired. COMPARISON: [facility], CR, XR CHEST 1V, 12/28/2022, 21:31. [facility], CR, XR CHEST 1V, 12/19/2024, 15:18. FINDINGS: Surgical changes and devices: Right central line with tip projecting in the right atria. Lungs and pleura: Lungs are clear. No pleural effusions or pneumothorax. Mediastinum: Mediastinal contours appear normal. Heart size is normal. Bones and chest wall: No suspicious bony lesions. Overlying soft tissues appear unremarkable. IMPRESSION: Central line with tip in the right atrium. Dictated by: Juan Miguel Vaughn M.D. on 12/19/2024 at 16:57 Approved by: Juan Miguel Vaughn M.D. on 12/19/2024 at 16:58
--- NOTE | 2024-12-19 17:50 | PC.NURSE ---
Patient had urinary catheter in place [employer] chronic indwelling herrera 20 cc. Catheter was disconneted from drain bag and large amount of urine noted on pants, sheets, and bedding beneath him. Urine very cloudy with sediment and strong foul odor purulent drainage. Patient cleaned up, catheter removed and replaced with a new 20 fr Herrera Catheter Coude tip 10 cc balloon. hypospadias noted. Reddness to bilateral buttocks, perineum, with healed scarring noted and small scattered skin tears to creases, no tunneling noted. Patient had bowel movement that was cleaned up and barrier cream applied to buttocks and perineum. Patients blood pressures decreased and repeated blood pressures obtained. IV fluids infused via pressure bag and provider notified. Patient switched to new room and preparing for central line placement to run LEvophed drip. patient remains alert/orient x 4 GCS 15. Belongings all labeled and at bedside including his sling, splint, nurse call toth necklace and pants. Central line placed and xray obtained for placement. Levophed started with improved bp see vitals charting. Temp remained 37.[address] abdomen obtained and Hospitalist to bedside for evaluation. Patient then taken up to ICU by Tereso INIGUEZ with bedside report.
--- NOTE | 2024-12-19 17:53 | PC.NURSE ---
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 Catheter was disconneted from drain bag and large amount of urine noted on pants, sheets, and bedding beneath him. Urine very cloudy with sediment and strong foul odor purulent drainage. Patient cleaned up, catheter removed and replaced with a new 20 fr Herrera Catheter Coude tip 10 cc balloon. hypospadias noted. Reddness to bilateral buttocks, perineum, wih
--- NOTE | 2024-12-19 18:07 | PM.HP.1 ---
History of Present Illness History of Present Illness Date Patient Seen: 12/19/24 Time Patient Seen: 18:07 Chief complaint: N/V Narrative: The patient was a 64-year-old male who is a resident of [facility]. He was wheelchair and bed-bound due to progressive multiple sclerosis. He was a chronic indwelling Hightower, diabetes, and chronic kidney disease stage 4 with a GFR of 23. He was a left arm fistula with a good thrill, but it was not needed dialysis today. His baseline creatinine is about 2.25-2.5. His creatinine today is under 3. He presents with progressive weakness, fatigue, and anorexia. He was had discolored and cloudy urine in his catheter. He denies rhinorrhea, or cough. He did have COVID about 1 week ago. He was not having diarrhea. He also denies fevers, or rigors. He denies active skin lesions or ulcerations. ED course: He was hypotensive and fluid resuscitated. A right internal jugular CVL was placed and was started on norepinephrine for vasopressor support. Blood cultures were obtained, UA was obtained, his Hightower was changed, a chest x-ray was unremarkable, and his pressures improved. He was given Zosyn and daptomycin for septic shock. [facility]LY [facility] Medical History Chronic kidney disease, stage IV (severe) History of neurogenic bladder Recurrent UTI (urinary tract infection) Stroke Neurogenic bladder Chronic anemia Chronic kidney disease Hypertension Hyperlipidemia Type 2 diabetes mellitus Multiple sclerosis Surgical History History of circumcision History of knee replacement Hx of hernia repair Family History Grandfather Coronary artery disease Brother Hyperlipidemia Hypertension Social History marital status: unmarried,single number of children: 1 household members: caregiver alcohol intake: former substance use type: does not use Meds Home Medications and Allergies Home Medications ?Medication ?Instructions ?Recorded ?Confirmed ?Type aspirin 81 mg tablet 81 mg PO QAM 12/30/20 04/30/23 History bismuth subsalicylate 262 mg/15 mL 262 mg PO Q6HR PRN Loose Stool 12/30/20 04/30/23 History oral suspension (Pepto-Bismol) docusate sodium 100 mg capsule 200 mg PO BID 12/30/20 04/30/23 History ferrous sulfate 325 mg (65 mg 325 mg PO QAM 12/30/20 04/30/23 History iron) capsule,extended release pantoprazole 40 mg tablet,delayed 40 mg PO QAM 12/30/20 04/30/23 History release atorvastatin 20 mg tablet 20 mg PO BEDTIME 04/12/21 04/30/23 History insulin glargine 100 unit/mL (3 30 unit SUBCUT QPM 04/12/21 04/30/23 History mL) subcutaneous pen (Lantus Solostar U-100 Insulin) nystatin 100,000 unit/gram topical 1 applic topical BID 04/12/21 04/30/23 History ointment torsemide 20 mg tablet 20 mg PO QAM 04/12/21 04/30/23 History loperamide 2 mg capsule 2 mg PO BID PRN Diarrhea 05/10/21 04/30/23 History polyethylene glycol 3350 17 gram 17 g PO QAM 05/10/21 04/30/23 History oral powder packet acetaminophen 500 mg tablet 500 mg PO Q4HR PRN mild pain/ fever 11/13/22 04/30/23 History calcium carbonate (Calcium Antacid) 400 mg PO TID 11/13/22 04/30/23 History hydrocodone 5 mg-acetaminophen 325 1 tab PO Q4HR PRN Pain (Scale 11/13/22 04/30/23 History mg tablet Score 4-6) potassium chloride 10 mEq 10 meq PO QAM 11/13/22 04/30/23 History tablet,extended release ondansetron HCl 4 mg tablet 4 mg PO Q8HR PRN Nausea 12/29/22 04/30/23 History Allergies Allergy/AdvReac Type Severity Reaction Status Date / Time No Known Drug Allergies Allergy Verified 12/19/24 14:35 Review of Systems Review of Systems Narrative: All else reviewed and otherwise unremarkable except as noted in the history and physical. Exam Vital Signs (past 8 hours): - 12/19/24 14:35 12/19/24 15:40 12/19/24 15:56 Temperature 99.1 F 99.1 F Pulse Rate 117 H 120 H Respiratory Rate 19 20 Blood Pressure 113/69 Pulse Oximetry 96 97 Oxygen Delivery Method Room Air 12/19/24 15:57 12/19/24 15:57 12/19/24 16:00 Temperature Pulse Rate 118 H Respiratory Rate 16 Blood Pressure 131/58 L 123/60 Pulse Oximetry 96 Oxygen Delivery Method 12/19/24 16:00 12/19/24 16:30 12/19/24 16:49 Temperature Pulse Rate 116 H 114 H Respiratory Rate 20 17 Blood Pressure 92/53 L Pulse Oximetry 95 96 Oxygen Delivery Method 12/19/24 16:49 12/19/24 17:00 12/19/24 17:00 Temperature Pulse Rate 109 H 109 H Respiratory Rate 20 19 Blood Pressure 92/49 L Pulse Oximetry 96 98 Oxygen Delivery Method 12/19/24 17:02 12/19/24 17:02 12/19/24 17:02 Temperature Pulse Rate 111 H Respiratory Rate 13 Blood Pressure 90/53 L 90/53 L Pulse Oximetry 96 Oxygen Delivery Method 12/19/24 17:06 12/19/24 17:06 12/19/24 17:06 Temperature 99.6 F Pulse Rate 106 H Respiratory Rate 18 17 Blood Pressure 86/47 L 86/47 L Pulse Oximetry 96 Oxygen Delivery Method 12/19/24 17:07 12/19/24 17:07 12/19/24 17:07 Temperature Pulse Rate 104 H Respiratory Rate 26 H Blood Pressure 86/51 L 86/51 L Pulse Oximetry 95 Oxygen Delivery Method 12/19/24 17:08 12/19/24 17:08 12/19/24 17:08 Temperature Pulse Rate 107 H Respiratory Rate 26 H Blood Pressure 88/53 L 88/53 L Pulse Oximetry 94 Oxygen Delivery Method 12/19/24 17:16 12/19/24 17:16 12/19/24 17:20 Temperature Pulse Rate 101 H 101 H Respiratory Rate 23 27 H Blood Pressure 82/45 L Pulse Oximetry 95 95 Oxygen Delivery Method 12/19/24 17:20 12/19/24 17:25 12/19/24 17:25 Temperature Pulse Rate 105 H Respiratory Rate 25 H Blood Pressure 87/50 L 93/50 L Pulse Oximetry 96 Oxygen Delivery Method 12/19/24 17:30 12/19/24 17:30 12/19/24 17:35 Temperature Pulse Rate 106 H Respiratory Rate 26 H Blood Pressure 93/53 L 86/49 L Pulse Oximetry 97 Oxygen Delivery Method 12/19/24 17:35 12/19/24 17:38 12/19/24 17:40 Temperature 99.6 F Pulse Rate 102 H 101 H Respiratory Rate 27 H 19 Blood Pressure Pulse Oximetry 96 Oxygen Delivery Method 12/19/24 17:40 12/19/24 17:45 12/19/24 17:45 Temperature Pulse Rate 99 H Respiratory Rate 19 Blood Pressure 104/56 L 118/55 L Pulse Oximetry 96 Oxygen Delivery Method Oxygen Delivery Method Room Air Narrative Exam Narrative: NAD, alert and oriented, fluent but slurred speech, calm. He was generalized weakness of arms and legs, and a Hightower catheter. A right IJ catheter is in place. He is obese. Normocephalic skull, EOMI, anicteric sclera, symmetric pupils. Oropharynx unremarkable, no droop. Neck supple, midline trachea, no adenopathy. Lungs clear, normal rate and effort. Heart regular, no murmur gallop or rub. Abdomen is soft, non distended and non tender. Extremities are free of edema. Skin is free of rash or lesions. Joints are not swollen or deformed. Judgment appears to be normal. Objective Imaging Multiple studies:: Radiologist's impression: Chest x-ray: Central line with tip in the right atrium. Abdomen CT: Read pending. Labs 12/19/24 15:20 12/19/24 15:20 Labs: Laboratory Results - last 24 hr 12/19/24 12/19/24 14:33 15:20 WBC 27.9 H RBC 5.25 Hgb 15.0 Hct 44.9 MCV 85.5 MCH 28.6 MCHC 33.5 RDW 14.9 H Plt Count 305 Neut % (Auto) Not Reportable Lymph % (Auto) Not Reportable [place] % (Auto) Not Reportable Eos % (Auto) Not Reportable Baso % (Auto) Not Reportable Lymph # (Auto) Not Reportable [place] # (Auto) Not Reportable Baso # (Auto) Not Reportable Total Counted 100 Seg Neutrophils % 90.0 H Band Neutrophils % 5.0 Monocytes % (Manual) 5.0 Neutrophils # (Manual) 28623 H RBC Morphology Normal morphology Sodium 138 Potassium 4.1 Chloride 99 Carbon Dioxide 26 BUN 74 H Creatinine 2.96 H Estimated GFR 23 L BUN/Creatinine Ratio 25.0 H Glucose 191 H POC Whole Bld Glucose 177 H Lactate 2.0 Calcium 9.0 Magnesium 2.0 Total Bilirubin 0.8 AST 30 ALT 27 Alkaline Phosphatase 95 Total Protein 7.4 Albumin 4.1 Globulin 3.3 Albumin/Globulin Ratio 1.2 Lipase 84 Assessment & Plan Assessment & Plan narrative: 1. Septic shock, present on admission and active. 2. Recent COVID with resolved symptoms, stable. 3. Possible diet-controlled diabetes, stable. 4. Probable urinary tract infection as source of infection, active. 5. Morbid obesity, present on admission and active. 6. Multiple sclerosis with chronic indwelling Hightower catheter and wheelchair bound status, active. 7. Acute kidney injury on chronic kidney disease. Active. PLAN: -central venous catheter for access. -broad-spectrum antibiotics with Zosyn, renally dosed at 2.25 g q.6, and daptomycin renally dosed at 640 mg IV q.48h. We will avoid vancomycin given his severe chronic kidney disease. -monitor blood and urine cultures. -frequent repositioning given his immobility. He was full resuscitation, confirmed today. He will need over 2 midnights of hospital care, supports inpatient status. 40 minutes of critical care time spent today. He suffers from septic shock requiring vasopressor support. Time-Based Coding :: [TOTAL MINUTES] spent with patient and on the chart (including review of chart, obtaining history, exam, reviewing outside data, placing orders, documenting exam and treatment plan, and counseling patient) on [DATE]. Quality MIPS - Admit I confirm the patient?s Advance Care Plan is present, Code status is documented, Surrogate decision maker is in patient?s record [If Yes, STOP here]: Yes The patient?s Advance Care plan is not present because I confirmed today that the patient does not wish or was not able to name a surrogate decision maker or provide an Advance Care Plan.: Yes MIPS - Meds 'Current medications' to include all prescriptions, [id number] products, herbals, cannabis/cannabidiol products, and vitamin/mineral/dietary (nutritional) supplements. I have utilized all available resources to obtain, update, or review the patient?s current medications. [If Yes, STOP here]: Yes
[2024-12-19 18:08] LABS: Appearance Urine UA CLOUDY; Bilirubin Urine UA NEGATIVE (NEGATIVE); Color Urine UA OTHER; Glucose Urine UA NEGATIVE (Negative); Ketones Urine UA NEGATIVE (NEGATIVE); Leukocyte Esterase Urine UA 2+ (NEGATIVE); Nitrite Urine UA NEGATIVE (Negative); Occult Blood Urine UA 3+ (Negative); Protein Urine UA 3+ (Negative); Specific Gravity Urine UA 1.015 (1.000-1.035); Urobilinogen Urine UA 0.2 E.U./dL (0.2); pH Urine UA 8.0 (4.5-8.0)
--- NOTE | 2024-12-19 18:22 | PC.WOUNDPHOT ---
sacrum. patient sticks unavailable at time of pictures.
[2024-12-19 18:24] LABS: Culture Indicated Urine Specimen Cultured
--- NOTE | 2024-12-19 19:21 | PC.ADMIT ---
[address] St Admission Note: PT ARRIVED ON UNIT AT 1805. A/OX4. R IJ CVC RUNNING LEVO AT 0.1 MCG. R AC PIV. SEE VITALS. 100.1F TEMP. 97% ON ROOM AIR. HEART RATE 104. NO C/O SOB OR S/S OF RESPI DISTRESS. NO C/O PAIN. PHOTO TAKEN OF WOUND PLACED IN CHART. DR VILLANUEVA NOTIFIED OF ARRIVAL. CARE ONGOING The patient,Maico Downs,64 y/o, was given written information regarding hospital policies, unit procedures and contact persons. Patient's smoking status: Former smoker. Vital Signs - 8 hr 12/19/24 14:35 12/19/24 15:40 12/19/24 15:56 Temperature 99.1 F 99.1 F Pulse Rate 117 H 120 H Respiratory Rate 19 20 Blood Pressure 113/69 Pulse Oximetry 96 97 Oxygen Delivery Method Room Air 12/19/24 15:57 12/19/24 15:57 12/19/24 16:00 Temperature Pulse Rate 118 H Respiratory Rate 16 Blood Pressure 131/58 L 123/60 Pulse Oximetry 96 Oxygen Delivery Method 12/19/24 16:00 12/19/24 16:30 12/19/24 16:49 Temperature Pulse Rate 116 H 114 H Respiratory Rate 20 17 Blood Pressure 92/53 L Pulse Oximetry 95 96 Oxygen Delivery Method 12/19/24 16:49 12/19/24 17:00 12/19/24 17:00 Temperature Pulse Rate 109 H 109 H Respiratory Rate 20 19 Blood Pressure 92/49 L Pulse Oximetry 96 98 Oxygen Delivery Method 12/19/24 17:02 12/19/24 17:02 12/19/24 17:02 Temperature Pulse Rate 111 H Respiratory Rate 13 Blood Pressure 90/53 L 90/53 L Pulse Oximetry 96 Oxygen Delivery Method 12/19/24 17:06 12/19/24 17:06 12/19/24 17:06 Temperature 99.6 F Pulse Rate 106 H Respiratory Rate 18 17 Blood Pressure 86/47 L 86/47 L Pulse Oximetry 96 Oxygen Delivery Method 12/19/24 17:07 12/19/24 17:07 12/19/24 17:07 Temperature Pulse Rate 104 H Respiratory Rate 26 H Blood Pressure 86/51 L 86/51 L Pulse Oximetry 95 Oxygen Delivery Method 12/19/24 17:08 12/19/24 17:08 12/19/24 17:08 Temperature Pulse Rate 107 H Respiratory Rate 26 H Blood Pressure 88/53 L 88/53 L Pulse Oximetry 94 Oxygen Delivery Method 12/19/24 17:16 12/19/24 17:16 12/19/24 17:20 Temperature Pulse Rate 101 H 101 H Respiratory Rate 23 27 H Blood Pressure 82/45 L Pulse Oximetry 95 95 Oxygen Delivery Method 12/19/24 17:20 12/19/24 17:25 12/19/24 17:25 Temperature Pulse Rate 105 H Respiratory Rate 25 H Blood Pressure 87/50 L 93/50 L Pulse Oximetry 96 Oxygen Delivery Method 12/19/24 17:30 12/19/24 17:30 12/19/24 17:35 Temperature Pulse Rate 106 H Respiratory Rate 26 H Blood Pressure 93/53 L 86/49 L Pulse Oximetry 97 Oxygen Delivery Method 12/19/24 17:35 12/19/24 17:38 12/19/24 17:40 Temperature 99.6 F Pulse Rate 102 H 101 H Respiratory Rate 27 H 19 Blood Pressure Pulse Oximetry 96 Oxygen Delivery Method 12/19/24 17:40 12/19/24 17:45 12/19/24 17:45 Temperature Pulse Rate 99 H Respiratory Rate 19 Blood Pressure 104/56 L 118/55 L Pulse Oximetry 96 Oxygen Delivery Method 12/19/24 17:50 12/19/24 17:50 12/19/24 17:55 Temperature Pulse Rate 95 H Respiratory Rate 26 H Blood Pressure 119/56 L 109/53 L Pulse Oximetry 96 Oxygen Delivery Method 12/19/24 17:55 12/19/24 18:00 12/19/24 18:00 Temperature Pulse Rate 93 H 97 H Respiratory Rate 26 H Blood Pressure 113/57 L Pulse Oximetry 96 92 Oxygen Delivery Method Room Air 12/19/24 18:05 12/19/24 18:05 12/19/24 18:15 Temperature Pulse Rate 95 H 104 H Respiratory Rate 27 H 24 Blood Pressure 123/58 L 113/55 L Pulse Oximetry 94 97 Oxygen Delivery Method Room Air 12/19/24 18:30 12/19/24 18:33 12/19/24 18:43 Temperature 100.1 F H Pulse Rate 99 H 99 H Respiratory Rate 23 23 Blood Pressure 119/58 L Pulse Oximetry 98 96 Oxygen Delivery Method 12/19/24 18:45 08/09/25 18:45 12/19/24 18:50 Temperature Pulse Rate 101 H Respiratory Rate 26 H Blood Pressure 117/54 L Pulse Oximetry 97 Oxygen Delivery Method Room Air 12/19/24 19:00 12/19/24 19:01 12/19/24 19:01 Temperature Pulse Rate 115 H 121 H Respiratory Rate 33 H 29 H Blood Pressure 132/82 Pulse Oximetry 98 96 Oxygen Delivery Method 12/19/24 19:15 12/19/24 19:15 12/19/24 19:16 Temperature Pulse Rate 133 H 136 H Respiratory Rate 31 H 29 H Blood Pressure 124/60 Pulse Oximetry 94 95 Oxygen Delivery Method 12/19/24 19:17 Temperature Pulse Rate Respiratory Rate Blood Pressure 136/56 L Pulse Oximetry Oxygen Delivery Method
[2024-12-19] MEDS: NOREPINEPHRINE BITARTRATE/D5W 4 MG/250 ML PLAST..BAG 9.759 MG IV (19:36)
[2024-12-19] MEDS: SODIUM CHLORIDE 0.9% 1,000 ML 100 ML IV (19:56)
[2024-12-19] MEDS: PIPERACILLIN/TAZO 3.375 GM in SODIUM CHLORIDE 0.9% 100 ML IV (19:59)
[2024-12-19] MEDS: HEPARIN 5,000 UNIT/ML VIAL 5000 UNIT SUBCUT (21:38)
[2024-12-20] VITALS (57 sets, daily range): BP systolic 81–123; BP diastolic 40–65; PULSE 101–139; RESP 28–41; TEMP 37.3–37.7; O2SAT 91–96
[2024-12-20 02:07] LABS: Acinetobacter calcoa-baumannii Not Detected (Not Detect); Bacteroides fragilis Not Detected (Not Detect); CTX-M Resistance Not Detected (Not Detect); Candida auris Not Detected (Not Detect); Candida glabrata Not Detected (Not Detect); Cryptococcus neoformans/gatti Not Detected (Not Detect); Enterobacterales Detected (Not Detect); Enterococcus faecalis Not Detected (Not Detect); Enterococcus faecium Not Detected (Not Detect); IMP Resistance Not Detected (Not Detect); KPC Resistance Not Detected (Not Detect); Klebsiella aerogenes Not Detected (Not Detect); NDM Resistance Not Detected (Not Detect); OXA-48-like Resistance Not Detected (Not Detect); Proteus species Detected (Not Detect); Serratia marcescens Not Detected (Not Detect); Staphylococcus epidermidis Not Detected (Not Detect); Staphylococcus lugdunensis Not Detected (Not Detect); Staphylococcus species Not Detected (Not Detect); Stenotrophomonas maltophilia Not Detected (Not Detect); Streptococcus agalactiae (Gr B Not Detected (Not Detect); Streptococcus pneumonia Not Detected (Not Detect); Streptococcus pyogenes (Gr A) Not Detected (Not Detect); Streptococcus species Not Detected (Not Detect); VIM Resistance Not Detected (Not Detect)
[2024-12-20] MEDS: ACETAMINOPHEN 325 MG TABLET 650 MG PO (02:35)
[2024-12-20] MEDS: PIPERACILLIN/TAZO 3.375 GM in SODIUM CHLORIDE 0.9% 100 ML IV (04:08)
[2024-12-20 05:28] LABS: Hematocrit 37.5 % (41-53); Hemoglobin 12.5 g/dL (13.5-17.5); Mean Corpuscular HGB Conc 33.3 % (30-36); Mean Corpuscular Hemoglobin 28.2 PG (26-34); Mean Corpuscular Volume 84.8 fL (80-100); Platelet Count 229 X10^3/uL (150-400)
[2024-12-20 05:31] LABS: Add Manual Diff / Slide Review YES
[2024-12-20] MEDS: SODIUM CHLORIDE 0.9% 1,000 ML 1000 ML IV (05:36)
--- NOTE | 2024-12-20 05:50 | PC.NURSE ---
Ekaterina Vazquez called regarding Mr. Downs. updated MD regarding pt. status that pt. is tachycardic in the 130's ST with PAC's and PVC's. Informed also of pt's low UO, telephone order received to give pt. 500 ml bolus and also order for 02 prn to keep sats>92%. Informed also MD of pt's WBC this am labs with a result of 40.9.
[2024-12-20 05:57] LABS: Blood Urea Nitrogen 78 mg/dL (9-20); Calcium 7.9 mg/dL (8.4-10.2); Carbon Dioxide 20 mmol/L (22-32); Chloride 103 mmol/L (98-107); Estimated Glomerular Filt Rate 16 mL/min (>60); Glucose 223 mg/dL (70-99); HEMOLYSIS < 15 (0-50); Sodium 137 mmol/L (137-145)
[2024-12-20 06:00] LABS: Band Neutrophils Percent 29.0 % (3-7); Lymphocytes Percent Manual 2.0 % (25-45); Neutrophils Absolute Manual 40082 /uL (3000-5900); Segmented Neutrophils Percent 69.0 % (38-70); Total Cells Counted 100
[2024-12-20 06:01] LABS: RBC Morphology Normal Morphology
[2024-12-20] MEDS: SODIUM CHLORIDE 0.9% 1,000 ML 100 ML IV (06:01)
[2024-12-20 06:09] LABS: Potassium 3.9 mmol/L (3.4-5.1)
[2024-12-20 06:42] LABS: MRSA (Nasal) PCR DETECTED (Not Detect)
[2024-12-20] MEDS: NOREPINEPHRINE BITARTRATE/D5W 4 MG/250 ML PLAST..BAG 39.038 MG IV (08:01)
[2024-12-20] MEDS: HEPARIN 5,000 UNIT/ML VIAL 5000 UNIT SUBCUT (08:21)
[2024-12-20] MEDS: SODIUM CHLORIDE 0.9% FLUSH 10 ML IV (08:21)
[2024-12-20] MEDS: INSULIN LISPRO 100 UNIT/ML 3ML VIAL SUBCUT (08:26)
[2024-12-20] MEDS: INSULIN GLARGINE 100 UNIT/ML 3ML PEN 15 UNIT SUBCUT (08:26)
--- NOTE | 2024-12-20 10:22 | CM.DANOTE ---
Patient is a 64 yo male who was admitted INPT Status on 12/19/24 for Septic Shock. Pt has [facility] and [facility] for insurance and his PCP is the assisted living facility provider. EMR was reviewed. Per , pt with hx of progressive MS and w/c bound at baseline with fistula but not yet getting dialysis and had COVID a week ago from his facility and being treated for septic shock from possible UTI and on IV Abx but now imaging returned showing blocking kidney stone and being transferred to [facility] for higher level of care needs with Urologist. SW met bedside with pt and explained role and he has some garbled speech from underlying MS but A&Ox3 and confirms he resides at [facility] for the past 4 years. Pt confirms his primary contact and POA is his son Severino [phone] and pt typically uses his power lift w/c for mobility at baseline. Pt has hx of SNF at [facility] before when he has needed SNF before return to [place] and also hx of HH but feels longer term outpt PT would be more beneficial due to his MS limiting his mobility and strength. Pt has also been established with Dr. Burton at [facility] at baseline. Plan: SW to follow closely for plan of hospital transfer to [facility] for higher level of care needs once bed available. BRYON Jones Discharge Planning/Care Management CM Discharge Assessment Start: 12/19/24 18:30 Freq: Status: Active Protocol: Document 12/20/24 09:44 BF (Rec: 12/20/24 09:46 BF [id number]) Discharge Planning Assessment Assigned Discharge [facility] DPOA/Assigned son Severino Designee Name Contact Information [phone] Advance Directives? Yes Advance Directives Yes: POSSIBLY IN CHART on File History Provided By Patient,Medical Record Has Patient been No admitted in last 30 days? Prior Living Assisted Living Arrangements Comment [facility] Household Members none Type of Relies on Others transporation used prior to admit Facility Name [facility] Admitted From: Willing to Return to Yes Facility? Independent with ADL No 's Is patient alert and Yes oriented? Caregiver for No Another DME Already Rented / Wheelchair Owned Comment tilt in space w/c Patient/Family [facility] Facility Preference Comment SNF vs return to [facility] pending progress Barriers to No Discharge Discharge Plan [facility] Facility Transportation Facility van Arrangement Referrals Initiated [facility] Whiteboard Updated Yes in Patient Room with name and ext. # of Vocational Training Director Review Status In Process Please Provide Date 12/20/24 Initial DC Assessment Was Performed Next Review Type Continued Stay Review
[2024-12-20] MEDS: MEROPENEM 1 GM in SODIUM CHLORIDE 0.9% 100 ML IV (10:27)
--- NOTE | 2024-12-20 11:00 | P.DS_ITS ---
History of Present Illness History of Present Illness Chief complaint: N/V Narrative: The patient was a 64-year-old male who is a resident of [facility]. He was wheelchair and bed-bound due to progressive multiple sclerosis. He was a chronic indwelling Hightower, diabetes, and chronic kidney disease stage 4 with a GFR of 23. He was a left arm fistula with a good thrill, but it was not needed dialysis today. His baseline creatinine is about 2.25-2.5. His creatinine today is under 3. He presents with progressive weakness, fatigue, and anorexia. He was had discolored and cloudy urine in his catheter. He denies rhinorrhea, or cough. He did have COVID about 1 week ago. He was not having diarrhea. He also denies fevers, or rigors. He denies active skin lesions or ulcerations. ED course: He was hypotensive and fluid resuscitated. A right internal jugular CVL was placed and was started on norepinephrine for vasopressor support. Blood cultures were obtained, UA was obtained, his Hightower was changed, a chest x-ray was unremarkable, and his pressures improved. He was given Zosyn and daptomycin for septic shock. Discharge Providers Provider Date of admission: 12/19/24 17:55 Discharge Date: 12/20/24 Consults: None. Discharge provider: Lito Barker MD Summary Hospital Course Discharge Diagnosis: 1. Septic shock, present on admission and active. 2. Obstructing right ureter stone, 8 mm, with hydronephrosis. 3. Worsening leukocytosis, active. 4. Recent COVID with resolved symptoms, stable. 5. Possible diet-controlled diabetes, stable. 6. Probable urinary tract infection as source of infection, active. 7. Morbid obesity, present on admission and active. 8. Multiple sclerosis with chronic indwelling Hightower catheter and wheelchair bound status, active. 9. Acute kidney injury on chronic kidney disease. Active. Hospital Course: He presented with evidence of septic shock in context of chronic kidney disease stage 4 and a chronic indwelling Hightower. He had purulent urine. His Hightower was changed, central venous line was placed, he was fluid resuscitated and then started norepinephrine. Cultures were obtained and IV antibiotics were started promptly. The patient's initial white count was 27. A CT scan was ordered and pending at the time of transfer. The CT scan ultimately revealed an obstructing kidney stone. The case was discussed with Dr. Dee of Urology at [facility]. The patient remained stable on pressors [place] [id number] on December 20. His Zosyn was stopped and he was started on meropenem to cover possible ESBL. He was started on daptomycin at the time of admission. [facility] was able to accept him in transfer for ICU level of care, acute stenting of an obstructing ureter stone, and Nephrology support. The patient does have a left arm fistula which has not been used to date. Status at Discharge Cognitive/behavioral status at discharge: oriented Functional status at discharge: wheelchair bound Overall status at discharge: patient is not back to baseline Time Spent with Patient Time spent: Greater than 30 minutes Exam Vital Signs (past 8 hours): - 12/20/24 03:30 12/20/24 03:30 12/20/24 03:30 Temperature 99.2 F Pulse Rate 131 H Respiratory Rate 33 H Blood Pressure 99/53 L Pulse Oximetry 94 Oxygen Delivery Method 12/20/24 04:00 12/20/24 04:00 12/20/24 04:10 Temperature Pulse Rate 119 H 118 H Respiratory Rate 33 H 33 H Blood Pressure 83/44 L Pulse Oximetry 92 92 Oxygen Delivery Method 12/20/24 04:10 12/20/24 04:13 12/20/24 04:13 Temperature Pulse Rate 118 H Respiratory Rate 32 H Blood Pressure 83/40 L 83/47 L Pulse Oximetry 94 Oxygen Delivery Method 12/20/24 04:15 12/20/24 04:15 12/20/24 04:30 Temperature Pulse Rate 128 H Respiratory Rate 31 H Blood Pressure 93/46 L 86/44 L Pulse Oximetry 92 Oxygen Delivery Method 12/20/24 04:30 12/20/24 04:40 12/20/24 04:40 Temperature Pulse Rate 119 H 130 H Respiratory Rate 33 H 32 H Blood Pressure 83/49 L Pulse Oximetry 92 93 Oxygen Delivery Method 12/20/24 04:44 12/20/24 04:44 12/20/24 04:45 Temperature Pulse Rate 129 H Respiratory Rate 37 H Blood Pressure 94/50 L 93/47 L Pulse Oximetry 93 Oxygen Delivery Method 12/20/24 04:45 12/20/24 04:50 12/20/24 04:50 Temperature Pulse Rate 128 H 116 H Respiratory Rate 36 H 34 H Blood Pressure 89/46 L Pulse Oximetry 94 94 Oxygen Delivery Method 12/20/24 04:55 12/20/24 04:55 12/20/24 05:00 Temperature Pulse Rate 133 H Respiratory Rate 39 H Blood Pressure 123/55 L 93/50 L Pulse Oximetry 93 Oxygen Delivery Method 12/20/24 05:00 12/20/24 05:05 12/20/24 05:05 Temperature Pulse Rate 117 H 117 H Respiratory Rate 39 H 38 H Blood Pressure 91/46 L Pulse Oximetry 92 91 Oxygen Delivery Method 12/20/24 05:10 12/20/24 05:10 12/20/24 05:15 Temperature Pulse Rate 118 H Respiratory Rate 37 H Blood Pressure 93/50 L 91/49 L Pulse Oximetry 92 Oxygen Delivery Method 12/20/24 05:15 12/20/24 05:30 12/20/24 05:30 Temperature Pulse Rate 118 H 130 H Respiratory Rate 37 H 37 H Blood Pressure 81/46 L Pulse Oximetry 91 92 Oxygen Delivery Method 12/20/24 05:31 12/20/24 05:31 12/20/24 05:45 Temperature Pulse Rate 131 H Respiratory Rate 35 H Blood Pressure 90/47 L 91/50 L Pulse Oximetry 92 Oxygen Delivery Method 12/20/24 05:45 12/20/24 06:00 12/20/24 06:00 Temperature Pulse Rate 121 H 132 H Respiratory Rate 40 H 40 H Blood Pressure 94/50 L Pulse Oximetry 92 93 Oxygen Delivery Method 12/20/24 06:02 12/20/24 06:02 12/20/24 06:15 Temperature Pulse Rate 132 H 131 H Respiratory Rate 38 H 38 H Blood Pressure 92/49 L Pulse Oximetry 93 93 Oxygen Delivery Method 12/20/24 06:15 12/20/24 06:30 12/20/24 06:30 Temperature Pulse Rate 138 H Respiratory Rate 38 H Blood Pressure 94/46 L 96/49 L Pulse Oximetry 93 Oxygen Delivery Method 12/20/24 06:45 12/20/24 06:45 12/20/24 07:00 Temperature Pulse Rate 138 H Respiratory Rate 40 H Blood Pressure 96/49 L 101/52 L Pulse Oximetry 93 Oxygen Delivery Method 12/20/24 07:00 12/20/24 07:15 12/20/24 07:15 Temperature Pulse Rate 139 H 117 H Respiratory Rate 40 H 40 H Blood Pressure 96/49 L Pulse Oximetry 94 94 Oxygen Delivery Method 12/20/24 07:30 12/20/24 07:30 12/20/24 07:45 Temperature Pulse Rate 131 H Respiratory Rate 40 H Blood Pressure 96/55 L 97/52 L Pulse Oximetry 93 Oxygen Delivery Method 12/20/24 07:45 12/20/24 08:00 12/20/24 08:00 Temperature Pulse Rate 130 H 115 H Respiratory Rate 40 H 36 H Blood Pressure 92/45 L Pulse Oximetry 94 94 Oxygen Delivery Method 12/20/24 08:00 12/20/24 08:00 12/20/24 08:15 Temperature 99.3 F Pulse Rate Respiratory Rate Blood Pressure 107/53 L Pulse Oximetry Oxygen Delivery Method Nasal Cannula 12/20/24 08:15 12/20/24 08:30 12/20/24 08:30 Temperature Pulse Rate 114 H 112 H Respiratory Rate 30 H 36 H Blood Pressure 106/53 L Pulse Oximetry 94 95 Oxygen Delivery Method 12/20/24 08:45 12/20/24 08:45 12/20/24 09:00 Temperature Pulse Rate 128 H Respiratory Rate 33 H Blood Pressure 98/51 L 102/51 L Pulse Oximetry 95 Oxygen Delivery Method 12/20/24 09:00 12/20/24 09:15 12/20/24 09:15 Temperature Pulse Rate 126 H 125 H Respiratory Rate 34 H 32 H Blood Pressure 104/57 L Pulse Oximetry 94 94 Oxygen Delivery Method 12/20/24 09:30 12/20/24 09:30 12/20/24 09:45 Temperature Pulse Rate 124 H Respiratory Rate 34 H Blood Pressure 103/59 L 110/56 L Pulse Oximetry 95 Oxygen Delivery Method 12/20/24 09:45 12/20/24 10:00 12/20/24 10:00 Temperature Pulse Rate 122 H 121 H Respiratory Rate 32 H 34 H Blood Pressure 114/58 L Pulse Oximetry 95 95 Oxygen Delivery Method 12/20/24 10:15 12/20/24 10:15 12/20/24 10:30 Temperature Pulse Rate 104 H Respiratory Rate 31 H Blood Pressure 109/55 L 107/56 L Pulse Oximetry 96 Oxygen Delivery Method 12/20/24 10:30 Temperature Pulse Rate 104 H Respiratory Rate 29 H Blood Pressure Pulse Oximetry 96 Oxygen Delivery Method Oxygen Delivery Method Nasal Cannula Narrative Exam Narrative: NAD, alert and oriented. Slow and slurred speech. Lungs are clear, normal rate and effort. Heart is regular, no murmur gallop or rub. Abdomen is soft, non distended. Extremities with 1 to 2+ edema. A right chest subclavian central line was placed in the ED. Objective Imaging Chest x-ray: Radiologist's impression: Surgical changes and devices: Right central line with tip projecting in the right atria. Lungs and pleura: Lungs are clear. No pleural effusions or pneumothorax. Mediastinum: Mediastinal contours appear normal. Heart size is normal. Bones and chest wall: No suspicious bony lesions. Overlying soft tissues appear unremarkable. IMPRESSION: Central line with tip in the right atrium. CT scan - abdomen: Radiologist's impression: 1. Obstructive right ureteral stone measuring 8 mm resulting in moderate to severe hydronephrosis and increased perinephric fat stranding. 2. Slight periaortic lymphadenopathy, likely reactive. 3. Additional nonobstructive renal calcifications. Labs 12/20/24 04:50 12/20/24 04:50 Labs: Laboratory Results - last 24 hr 12/19/24 12/19/24 12/19/24 14:33 15:20 15:26 WBC 27.9 H RBC 5.25 Hgb 15.0 Hct 44.9 MCV 85.5 MCH 28.6 MCHC 33.5 RDW 14.9 H Plt Count 305 Neut % (Auto) Not Reportable Lymph % (Auto) Not Reportable Amelia % (Auto) Not Reportable Eos % (Auto) Not Reportable Baso % (Auto) Not Reportable Lymph # (Auto) Not Reportable Amelia # (Auto) Not Reportable Baso # (Auto) Not Reportable Total Counted 100 Seg Neutrophils % 90.0 H Band Neutrophils % 5.0 Lymphocytes % (Manual) Monocytes % (Manual) 5.0 Neutrophils # (Manual) 99364 H Platelet Estimate RBC Morphology Normal morphology Sodium 138 Potassium 4.1 Chloride 99 Carbon Dioxide 26 BUN 74 H Creatinine 2.96 H Estimated GFR 23 L BUN/Creatinine Ratio 25.0 H Glucose 191 H POC Whole Bld Glucose 177 H Lactate 2.0 Calcium 9.0 Magnesium 2.0 Total Bilirubin 0.8 AST 30 ALT 27 Alkaline Phosphatase 95 Total Protein 7.4 Albumin 4.1 Globulin 3.3 Albumin/Globulin Ratio 1.2 Lipase 84 Urine Color Urine Appearance Urine pH Ur Specific Oley Urine Protein Urine Glucose (UA) Urine Ketones Urine Occult Blood Urine Nitrate Urine Bilirubin Urine Urobilinogen Ur Leukocyte Esterase Urine RBC Urine WBC Ur Squamous Epith Cells Ur Renal Epithelial Cell Urine Bacteria Ur Culture Indicated? Vol Urine Centrifuged Nasal Screen MRSA (PCR) A.calcoaceticus-baumannii cmplx PCR Not detected Bacteroides fragilis Not detected Sophia albicans (PCR) Not detected Sophia auris (PCR) Not detected C. glabrata (PCR) Not detected C. krusei (PCR) Not detected C. parapsilosis (PCR) Not detected C. tropicalis (PCR) Not detected C. neoform/gattii (PCR) Not detected Enterobacterales (PCR) Detected E. cloacae complex PCR Not detected Enterococc faecalis PCR Not detected Enterococc faecium PCR Not detected E. coli (PCR) Not detected H. influenzae (PCR) Not detected Klebsiella aerogenes (PCR) Not detected Klebsiella oxytoca PCR Not detected Klebsiella pneumoniae Not detected List. monocytogenes PCR Not detected N. meningitidis (PCR) Not detected Proteus species (PCR) Detected Salmonella spp. (PCR) Not detected Serratia marcescens PCR Not detected Staphylococcus sp PCR Not detected Staph aureus (PCR) Not detected mecA/C & MREJ Resist Gene Not applicable mecA/C-Methicil Resis Gene Not applicable mcr-1 Colistin Res Gene PCR Not applicable Staph epidermidis (PCR) Not detected Staph lugdunensis PCR Not detected S. maltophilia (PCR) Not detected Streptococcus sp PCR Not detected Group A Strep (PCR) Not detected Strep agalactiae (PCR) Not detected Strep pneumoniae (PCR) Not detected P. aeruginosa (PCR) Not detected Carlos/B-Vanco Res Genes Not applicable blaIMP Car res Gene PCR Not detected KPC-Carbap Res Gene PCR Not detected blaNDM Car Res Gene PCR Not detected OXA-48 Carbapenem Resis Gene (PCR) Not detected blaVIM Car Res Gene PCR Not detected CTX-M Gene Resistance (PCR) Not detected 12/19/24 12/20/24 12/20/24 17:55 04:50 08:24 WBC 40.9 H* RBC 4.42 L Hgb 12.5 L Hct 37.5 L MCV 84.8 MCH 28.2 MCHC 33.3 RDW 14.9 H Plt Count 229 Neut % (Auto) Not Reportable Lymph % (Auto) Not Reportable Amelia % (Auto) Not Reportable Eos % (Auto) Not Reportable Baso % (Auto) Not Reportable Lymph # (Auto) Not Reportable Amelia # (Auto) Not Reportable Baso # (Auto) Not Reportable Total Counted 100 Seg Neutrophils % 69.0 Band Neutrophils % 29.0 H Lymphocytes % (Manual) 2.0 L Monocytes % (Manual) Neutrophils # (Manual) 85341 H Platelet Estimate Adequate on smear RBC Morphology Normal morphology Sodium 137 Potassium 3.9 Chloride 103 Carbon Dioxide 20 L BUN 78 H Creatinine 3.87 H Estimated GFR 16 L BUN/Creatinine Ratio 20.2 Glucose 223 H POC Whole Bld Glucose 283 H D Lactate Calcium 7.9 L Magnesium Total Bilirubin AST ALT Alkaline Phosphatase Total Protein Albumin Globulin Albumin/Globulin Ratio Lipase Urine Color Other Urine Appearance Cloudy Urine pH 8.0 Ur Specific Oley 1.015 Urine Protein 3+ H Urine Glucose (UA) Negative Urine Ketones Negative Urine Occult Blood 3+ H Urine Nitrate Negative Urine Bilirubin Negative Urine Urobilinogen 0.2 Ur Leukocyte Esterase 2+ H Urine RBC 5-10/hpf H Urine WBC >100/hpf H Ur Squamous Epith Cells None seen Ur Renal Epithelial Cell 1-5/hpf H Urine Bacteria Moderate (10-30) H Ur Culture Indicated? Specimen cultured Vol Urine Centrifuged Low vol <10ml (spun) A Nasal Screen MRSA (PCR) Detected H A.calcoaceticus-baumannii cmplx PCR Bacteroides fragilis Sophia albicans (PCR) Sophia auris (PCR) C. glabrata (PCR) C. krusei (PCR) C. parapsilosis (PCR) C. tropicalis (PCR) C. neoform/gattii (PCR) Enterobacterales (PCR) E. cloacae complex PCR Enterococc faecalis PCR Enterococc faecium PCR E. coli (PCR) H. influenzae (PCR) Klebsiella aerogenes (PCR) Klebsiella oxytoca PCR Klebsiella pneumoniae List. monocytogenes PCR N. meningitidis (PCR) Proteus species (PCR) Salmonella spp. (PCR) Serratia marcescens PCR Staphylococcus sp PCR Staph aureus (PCR) mecA/C & MREJ Resist Gene mecA/C-Methicil Resis Gene mcr-1 Colistin Res Gene PCR Staph epidermidis (PCR) Staph lugdunensis PCR S. maltophilia (PCR) Streptococcus sp PCR Group A Strep (PCR) Strep agalactiae (PCR) Strep pneumoniae (PCR) P. aeruginosa (PCR) Carlos/B-Vanco Res Genes blaIMP Car res Gene PCR KPC-Carbap Res Gene PCR blaNDM Car Res Gene PCR OXA-48 Carbapenem Resis Gene (PCR) blaVIM Car Res Gene PCR CTX-M Gene Resistance (PCR) [facility] Medical History Chronic kidney disease, stage IV (severe) History of neurogenic bladder Recurrent UTI (urinary tract infection) Stroke Neurogenic bladder Chronic anemia Chronic kidney disease Hypertension Hyperlipidemia Type 2 diabetes mellitus Multiple sclerosis Surgical History History of circumcision History of knee replacement Hx of hernia repair Family History Grandfather Coronary artery disease Brother Hyperlipidemia Hypertension Social History marital status: unmarried,single number of children: 1 household members: none Smoking Status: Former smoker alcohol intake: former substance use type: does not use Discharge Assessment & Plan Assessment and Plan Assessment: Septic shock [place] [id number] secondary to an obstructing right ureter stent with hydronephrosis, active. Plan of Treatment: ACLS transfer to [facility] on norepinephrine. Patient has been receiving meropenem and daptomycin. He was discussed with the ICU doctor as well as Urology. He requires emergent stenting of his obstructive stone. He was also at high risk for need for dialysis. He was a left arm fistula which has not been used up to this date. Discharge Plan Discharge Plan Patient Disposition: [facility] Other facility: [facility] Under care of provider: Dr. Chakraborty.
--- NOTE | 2024-12-20 11:30 | PC.NURSE ---
Addendum entered by Danyel Meadows R.N. 12/20/24 12:11: PATIENT TAKEN BY EMS AT 1208. YASMIN ARANGO UPDATED ON PLAN OF CARE. Original Note: REPORT CALLED TO GEETHA JAIN AT [facility]
== END 2024-12-20 12:08 | disposition short-term general hospital (02) | DRG 698 ==
LOC: ED 17:43 → AC 17:56 → ICU 18:18
PROVIDERS: Admitting Provider Hospitalist; Emergency Provider Emergency Medicine; Referring Provider Emergency Medicine; Visit Provider Hospitalist
DX: T83.511A Infection and inflammatory reaction due to indwelling urethral catheter, initial encounter (principal); A41.9 Sepsis, unspecified organism; R65.21 Severe sepsis with septic shock; N17.9 Acute kidney failure, unspecified; N18.4 Chronic kidney disease, stage 4 (severe); N13.2 Hydronephrosis with renal and ureteral calculous obstruction; N39.0 Urinary tract infection, site not specified; G35 Multiple sclerosis; E11.22 Type 2 diabetes mellitus with diabetic chronic kidney disease; E66.01 Morbid (severe) obesity due to excess calories; B96.4 Proteus (mirabilis) (morganii) as the cause of diseases classified elsewhere; Y73.1 Therapeutic (nonsurgical) and rehabilitative gastroenterology and urology devices associated with adverse incidents; Z74.01 Bed confinement status; Z95.828 Presence of other vascular implants and grafts; Z68.34 Body mass index [BMI] 34.0-34.9, adult; Z87.891 Personal history of nicotine dependence; Z79.4 Long term (current) use of insulin; Z86.16 Personal history of COVID-19
CPT/HCPCS: 36556; 71045; 74176; 80048; 80053; 81001; 82962; 83605; 83690; 83735; 85007; 85025; 87040; 87077; 87086; 87154; 87186; 87797; 96361; 96365; 96367; 96375; 99284; 99291; J0878; J1644; J1815; J2185; J2405; J2543

== ENCOUNTER → 2025-01-05 13:43 | Outpatient (CLI) | payer MEDICARE, MEDICAID, SELFPAY ==
[2024-12-19 18:38] VITALS: BMI 34.0
== END ==
LOC: WC 13:57
PROVIDERS: PCP Internal Medicine; Referring Provider Internal Medicine; Visit Provider Surgery
DX: L89.322 Pressure ulcer of left buttock, stage 2 (principal); G35 Multiple sclerosis; R15.9 Full incontinence of feces; L91.8 Other hypertrophic disorders of the skin; E11.628 Type 2 diabetes mellitus with other skin complications; N18.6 End stage renal disease; E11.22 Type 2 diabetes mellitus with diabetic chronic kidney disease; I10 Essential (primary) hypertension; Z87.891 Personal history of nicotine dependence; Z99.3 Dependence on wheelchair; E78.2 Mixed hyperlipidemia
CPT/HCPCS: 99213

== ENCOUNTER → 2025-01-19 13:43 | Outpatient (CLI) | payer MEDICARE, MEDICAID, SELFPAY ==
[2024-12-19 18:38] VITALS: BMI 34.0
== END ==
LOC: WC 13:44
PROVIDERS: PCP Internal Medicine; Referring Provider Internal Medicine; Visit Provider Surgery
DX: L89.329 Pressure ulcer of left buttock, unspecified stage (principal); G35 Multiple sclerosis; L24.A2 Irritant contact dermatitis due to fecal, urinary or dual incontinence; E11.628 Type 2 diabetes mellitus with other skin complications; E11.22 Type 2 diabetes mellitus with diabetic chronic kidney disease; N18.6 End stage renal disease; Z74.09 Other reduced mobility; Z99.3 Dependence on wheelchair
CPT/HCPCS: 99213

== ENCOUNTER → 2025-01-20 08:48 | Outpatient (ROUT) | payer MEDICARE, MEDICAID, SELFPAY ==
[2024-12-19 18:38] VITALS: BMI 34.0
[2025-01-20 08:55] LABS: Add Manual Diff / Slide Review NO; Hematocrit 38.8 % (41-53); Hemoglobin 12.9 g/dL (13.5-17.5); Lymphocytes Absolute Auto 1900 /uL (1100-4500); Mean Corpuscular HGB Conc 33.2 % (30-36); Mean Corpuscular Hemoglobin 28.1 PG (26-34); Mean Corpuscular Volume 84.8 fL (80-100); Platelet Count 302 X10^3/uL (150-400)
== END ==
PROVIDERS: PCP Internal Medicine
DX: Z09 Encounter for follow-up examination after completed treatment for conditions other than malignant neoplasm (principal)
CPT/HCPCS: 36415; 85025

== ENCOUNTER → 2025-02-02 10:00 | Outpatient (CLI) | payer MEDICARE, MEDICAID, SELFPAY ==
[2024-12-19 18:38] VITALS: BMI 34.0
== END ==
LOC: WC 10:03
PROVIDERS: PCP Internal Medicine; Referring Provider Internal Medicine; Visit Provider Surgery
DX: L92.8 Other granulomatous disorders of the skin and subcutaneous tissue (principal); L89.323 Pressure ulcer of left buttock, stage 3; L24.A2 Irritant contact dermatitis due to fecal, urinary or dual incontinence; G60.9 Hereditary and idiopathic neuropathy, unspecified
CPT/HCPCS: 17250; 99213

== ENCOUNTER → 2025-02-03 16:46 | Outpatient (ROUT) | payer MEDICARE, MEDICAID, SELFPAY ==
[2024-12-19 18:38] VITALS: BMI 34.0
[2025-02-03 17:14] LABS: Appearance Urine UA CLEAR; Bilirubin Urine UA NEGATIVE (NEGATIVE); Color Urine UA YELLOW; Glucose Urine UA NEGATIVE (Negative); Ketones Urine UA NEGATIVE (NEGATIVE); Leukocyte Esterase Urine UA 2+ (NEGATIVE); Nitrite Urine UA NEGATIVE (Negative); Occult Blood Urine UA TRACE-INTACT (Negative); Protein Urine UA NEGATIVE (Negative); Specific Gravity Urine UA <=1.005 (1.000-1.035); Urobilinogen Urine UA 0.2 E.U./dL (0.2); pH Urine UA 6.0 (4.5-8.0)
[2025-02-03 17:23] LABS: Culture Indicated Urine Specimen Cultured
== END ==
PROVIDERS: PCP Internal Medicine; Visit Provider Urology
DX: N20.1 Calculus of ureter (principal)
CPT/HCPCS: 81001; 87086

== ENCOUNTER 2025-02-03 21:55 | Emergency (ER) | payer MEDICARE, MEDICAID, SELFPAY ==
[2024-12-19 18:38] VITALS: BMI 34.0
[2025-02-03] VITALS (7 sets, daily range): BP systolic 108–133; BP diastolic 54–72; PULSE 77–83; RESP 16–17; TEMP 36.4; O2SAT 98–99; BMI 34.4
--- NOTE | 2025-02-03 22:47 | PC.NURSE ---
Flushed pt's indwelling catheter with 400ml sterile water. Noticed multiple clots drain. Cath now draining.
--- NOTE | 2025-02-03 23:17 | ED.MALEGU ---
HPI - Male Genitourinary General Chief complaint: Urogenital-Male Stated complaint: catheter issues Time Seen by Provider: 02/03/25 23:16 Source: patient and EMS Mode of arrival: EMS History of Present Illness HPI Narrative: Patient is a 64-year-old male history of multiple sclerosis recently admitted in December 2024 with septic shock from UTI and kidney stone. Presenting today with catheter issue. He has a chronic indwelling Hightower catheter which was not draining. Nursing quickly irrigated remove 1 clot there is some mild hematuria now. Patient appears well he actually has no complaints. He is afebrile. Related Data Home Medications ?Medication ?Instructions ?Recorded ?Confirmed aspirin 81 mg tablet 81 mg PO QAM 12/30/20 04/30/23 bismuth subsalicylate 262 mg/15 mL 262 mg PO Q6HR PRN Loose Stool 12/30/20 04/30/23 oral suspension (Pepto-Bismol) docusate sodium 100 mg capsule 200 mg PO BID 12/30/20 04/30/23 ferrous sulfate 325 mg (65 mg 325 mg PO QAM 12/30/20 04/30/23 iron) capsule,extended release pantoprazole 40 mg tablet,delayed 40 mg PO QAM 12/30/20 04/30/23 release atorvastatin 20 mg tablet 20 mg PO BEDTIME 04/12/21 04/30/23 insulin glargine 100 unit/mL (3 30 unit SUBCUT QPM 04/12/21 04/30/23 mL) subcutaneous pen (Lantus Solostar U-100 Insulin) nystatin 100,000 unit/gram topical 1 applic topical BID 04/12/21 04/30/23 ointment torsemide 20 mg tablet 20 mg PO QAM 04/12/21 04/30/23 loperamide 2 mg capsule 2 mg PO BID PRN Diarrhea 05/10/21 04/30/23 polyethylene glycol 3350 17 gram 17 g PO QAM 05/10/21 04/30/23 oral powder packet acetaminophen 500 mg tablet 500 mg PO Q4HR PRN mild pain/ fever 11/13/22 04/30/23 calcium carbonate (Calcium Antacid) 400 mg PO TID 11/13/22 04/30/23 hydrocodone 5 mg-acetaminophen 325 1 tab PO Q4HR PRN Pain (Scale 11/13/22 04/30/23 mg tablet Score 4-6) potassium chloride 10 mEq 10 meq PO QAM 11/13/22 04/30/23 tablet,extended release ondansetron HCl 4 mg tablet 4 mg PO Q8HR PRN Nausea 12/29/22 04/30/23 Previous Rx's ?Medication ?Instructions ?Recorded cefdinir 300 mg capsule 300 mg PO Q12H #14 caps 02/04/25 Allergies Allergy/AdvReac Type Severity Reaction Status Date / Time No Known Drug Allergies Allergy Verified 02/03/25 22:42 Patient History Medical History Chronic kidney disease, stage IV (severe) History of neurogenic bladder Recurrent UTI (urinary tract infection) Stroke Neurogenic bladder Chronic anemia Chronic kidney disease Hypertension Hyperlipidemia Type 2 diabetes mellitus Multiple sclerosis Surgical History History of circumcision History of knee replacement Hx of hernia repair Family History Grandfather Coronary artery disease Brother Hyperlipidemia Hypertension Social History marital status: unmarried,single number of children: 1 household members: none alcohol intake: former substance use type: does not use alcohol intake frequency: holidays/special occasions only Exam Initial Vital Signs Initial Vital Signs: Vital Signs Temperature 97.5 F L 02/03/25 21:56 Pulse Rate 77 02/03/25 21:56 Respiratory Rate 17 02/03/25 21:56 Blood Pressure 133/57 L 02/03/25 21:56 Pulse Oximetry 99 02/03/25 21:56 Oxygen Delivery Method Room Air 02/03/25 21:56 GENERAL: Alert well-appearing 64-year-old male and in no acute distress. HEENT: Head atraumatic,EOMI, pupils reactive, face symmetric, moist mucous membranes CARDIOVASCULAR: Regular rate and rhythm without murmurs, rubs or gallops. RESPIRATORY: Breath sounds equal bilaterally, no wheezes rales or rhonchi. ABDOMEN: Soft, nontender. Normoactive bowel sounds all 4 quadrants. No guarding or rebound. EXTREMITIES: Normal range of motion, no clubbing or edema. Neurovascularly intact NEUROLOGICAL: Alert and oriented x4. At baseline SKIN: Warm, dry, no laceration, no petechiae, no rashes or lesions. Course Orders Ordered: ED Orders 02/03/25 23:34 CBC Auto Diff [Complete Blood Count AUTO DIFF] Stat CMP [Comprehensive Metabolic Panel] Stat 02/04/25 00:15 Ictotest Urine Stat Urinalysis and Microscopic Stat Urine Culture Stat Discontinued Medications Ceftriaxone Sodium 1,000 mg/ (Sodium Chloride) 100 mls @ 200 mls/hr IV NOW ONE Stop: 02/04/25 00:53 Last Infusion: 02/04/25 01:39 Dose: Infused Documented By: Admin: 02/04/25 01:02 Dose: 200 mls/hr Documented By: Vital Signs Vital signs: Vital Signs - 8 hr 02/03/25 21:56 02/03/25 21:59 02/03/25 21:59 Temperature 97.5 F L Pulse Rate 77 82 Respiratory Rate 17 Blood Pressure 133/57 L 133/57 L Pulse Oximetry 99 98 Oxygen Delivery Method Room Air 02/03/25 22:00 02/03/25 22:00 02/03/25 22:30 Temperature Pulse Rate 82 79 Respiratory Rate 17 Blood Pressure 126/58 L Pulse Oximetry 98 98 Oxygen Delivery Method 02/03/25 23:00 02/03/25 23:00 02/03/25 23:30 Temperature Pulse Rate 79 83 Respiratory Rate 16 Blood Pressure 108/54 L Pulse Oximetry 98 98 Oxygen Delivery Method 02/03/25 23:33 02/03/25 23:33 02/04/25 00:00 Temperature Pulse Rate 81 98 H Respiratory Rate Blood Pressure 120/72 Pulse Oximetry 98 97 Oxygen Delivery Method Room Air 02/04/25 00:30 02/04/25 00:30 02/04/25 01:00 Temperature Pulse Rate 78 Respiratory Rate 16 Blood Pressure 107/57 L 112/58 L Pulse Oximetry 97 Oxygen Delivery Method 02/04/25 01:00 02/04/25 01:30 02/04/25 02:00 Temperature Pulse Rate 79 82 80 Respiratory Rate 17 Blood Pressure Pulse Oximetry 97 97 97 Oxygen Delivery Method Room Air Room Air 02/04/25 02:30 02/04/25 03:00 02/04/25 03:34 Temperature Pulse Rate 83 81 87 Respiratory Rate Blood Pressure Pulse Oximetry 98 96 98 Oxygen Delivery Method MDM - Male Genitourinary Lab Data 02/03/25 23:34 02/03/25 23:34 Labs: Lab Results 02/03/25 02/04/25 Range/Units 23:34 00:15 WBC 8.5 (4.5-11.0) X10^3/uL RBC 4.61 (4.5-5.9) X10^6/uL Hgb 13.0 L (13.5-17.5) g/dL Hct 38.3 L (41-53) % MCV 83.0 (80-100) fL MCH 28.2 (26-34) PG MCHC 34.0 (30-36) % RDW 15.5 H (11.6-14.8) % Plt Count 320 (150-400) X10^3/uL Neut % (Auto) 63.4 (50-75) % Lymph % (Auto) 19.4 L (25-40) % [place] % (Auto) 11.5 (3-14) % Eos % (Auto) 4.8 H (2-4) % Baso % (Auto) 0.9 (0-2) % Neut # (Auto) 5400 (7585-3121) /uL Lymph # (Auto) 1600 (9131-4315) /uL [place] # (Auto) 1000 H (0-900) /uL Eos # (Auto) 400 (0-450) /uL Baso # (Auto) 100 (0-100) /uL Sodium 139 (137-145) mmol/L Potassium 3.5 (3.4-5.1) mmol/L Chloride 103 (98-107) mmol/L Carbon Dioxide 25 (22-32) mmol/L BUN 72 H (9-20) mg/dL Creatinine 2.21 H (0.66-1.25) mg/dL Estimated GFR 32 L (>60) mL/min BUN/Creatinine Ratio 32.6 H (6-22) Glucose 111 H (70-99) mg/dL Calcium 8.5 (8.4-10.2) mg/dL Total Bilirubin 0.4 (0.2-1.3) mg/dL AST 17 (17-59) IU/L ALT 12 (<50) IU/L Alkaline Phosphatase 69 (38-126) U/L Total Protein 6.7 (6.3-8.2) g/dL Albumin 3.9 (3.5-5.0) g/dL Globulin 2.8 (1.7-4.1) g/dL Albumin/Globulin Ratio 1.4 (1.0-2.8) Urine Color Red Urine Appearance Turbid Urine pH 6.5 (4.5-8.0) Ur Specific [place] 1.015 (1.000-1.035) Urine Protein 3+ H (Negative) Urine Glucose (UA) Negative (Negative) g/dL Urine Ketones Negative (NEGATIVE) Urine Occult Blood 3+ H (Negative) Urine Nitrate Positive H (Negative) Urine Bilirubin 1+ H (NEGATIVE) Ur Bilirubin Confirm Negative (Negative) Urine Urobilinogen 1.0 (0.2) E.U./dL Ur Leukocyte Esterase 1+ H (NEGATIVE) Urine RBC >100/hpf H D (0-5/HPF) Urine WBC 5-10/hpf H (0-5/HPF) Ur Squamous Epith Cells 0-1 /hpf (0-5/HPF) Urine Bacteria Few (2-10) H (None) Ur Culture Indicated? Specimen cultured Vol Urine Centrifuged 10ml (spun) MDM Narrative Medical decision making narrative: MDM CC: Hightower catheter Complicating co-morbidities: Multiple sclerosis Data collected from: Patient and prior records Medical records reviewed: Recent admission with septic shock leukocytosis of 40.9 at that time transferred to [facility] Differential considered: UTI sepsis hematuria nephrolithiasis Exam documented above, pertinent findings include: Alert well-appearing 64-year-old male abdomen is soft nontender breath sounds equal Hightower catheter has a mild pink hematuria Lab Test results independently reviewed as above. Pertinent findings: No leukocytosis no anemia CMP no electrolyte abnormalities creatinine is 2.2 which is baseline Urinalysis is positive for nitrates Consultations: None Treatments: Hightower irrigation Re-evaluations: Initially catheter and irrigated with 400 cc clot was released had some mild hematuria however after time started again having gross hematuria. Ultimately through a catheter was placed irrigated with 1 full continuous irrigation bag. It was then clamped again and appears clear. No recurrence bleeding. Discussion: Patient 64-year-old male with indwelling chronic Hightower catheter presents to day with hematuria. He did require a Hightower catheter change and irrigation but leading seems to a stop. Urinalysis is positive for nitrates. Recently admitted for UTI and septic shock. Blood work does not show sepsis he has no leukocytosis in the electrolytes and kidney function are stable. Previous culture shows Proteus mirabilis with resistance to fluoroquinolones and Macrobid. He is given 1 dose of Rocephin here in the ED we will send him home on cefepime Discharge Plan Departure Patient Disposition: Home Clinical Impression: Hematuria, Acute UTI Instructions: DI for Hematuria Activity Restrictions/Additional Instructions: *You have been diagnosed with hematuria *What to do: At this time blood work is reassuring no evidence of infection *Continue to take medications as directed Cefepime 300 mg twice a day for 7 days *Follow up with your primary care provider in 2-3 days or call [phone] *Return to ER if you should have catheter problem or any new, worsening or concerning symptoms Prescriptions: New cefdinir 300 mg capsule 300 mg PO Q12H Qty: 14 0RF No Action torsemide 20 mg tablet 20 mg PO QAM nystatin 100,000 unit/gram ointment 1 applic topical BID pantoprazole 40 mg Tablet,Delayed Release (Dr/Ec) 40 mg PO QAM bismuth subsalicylate [Pepto-Bismol] 262 mg/15 mL Suspension 262 mg PO Q6HR PRN (Reason: Loose Stool) docusate sodium 100 mg Capsule 200 mg PO BID aspirin 81 mg Tablet 81 mg PO QAM ferrous sulfate 325 mg (65 mg iron) Capsule, Extended Release 325 mg PO QAM atorvastatin 20 mg tablet 20 mg PO BEDTIME Lantus Solostar U-100 Insulin 100 unit/mL (3 mL) insulin pen 30 unit SUBCUT QPM Patient Comments: 5 units given at bedtime for BS 76 on 04/29/23 loperamide 2 mg capsule 2 mg PO BID PRN (Reason: Diarrhea) polyethylene glycol 3350 17 gram powder in packet 17 g PO QAM ondansetron HCl 4 mg tablet 4 mg PO Q8HR PRN (Reason: Nausea) hydrocodone-acetaminophen 5-325 mg tablet 1 tab PO Q4HR PRN (Reason: Pain (Scale Score 4-6)) potassium chloride 10 mEq tablet extended release 10 meq PO QAM acetaminophen 500 mg tablet 500 mg PO Q4HR PRN (Reason: mild pain/ fever) Rx Instructions: Max 3000/24 hours calcium carbonate [Calcium Antacid] 200 mg calcium (500 mg) tablet,chewable 400 mg PO TID Rx Instructions: with meals for CKD Referrals: Tolu Solis MD [Primary Care Provider, Internal Medicine] Stand Alone Forms: Patient Portal/API
[2025-02-03 23:49] LABS: Add Manual Diff / Slide Review NO; Hematocrit 38.3 % (41-53); Hemoglobin 13.0 g/dL (13.5-17.5); Lymphocytes Absolute Auto 1600 /uL (1100-4500); Mean Corpuscular HGB Conc 34.0 % (30-36); Mean Corpuscular Hemoglobin 28.2 PG (26-34); Mean Corpuscular Volume 83.0 fL (80-100); Platelet Count 320 X10^3/uL (150-400)
[2025-02-03 23:56] LABS: Alanine Aminotransferase 12 IU/L (<50); Albumin 3.9 g/dL (3.5-5.0); Albumin Globulin Ratio 1.4 (1.0-2.8); Alkaline Phosphatase 69 U/L (38-126); Blood Urea Nitrogen 72 mg/dL (9-20); Calcium 8.5 mg/dL (8.4-10.2); Carbon Dioxide 25 mmol/L (22-32); Chloride 103 mmol/L (98-107); Estimated Glomerular Filt Rate 32 mL/min (>60); Globulin 2.8 g/dL (1.7-4.1); Glucose 111 mg/dL (70-99); HEMOLYSIS 17 (0-50); Potassium 3.5 mmol/L (3.4-5.1); Sodium 139 mmol/L (137-145); Total Protein 6.7 g/dL (6.3-8.2)
[2025-02-04] VITALS (8 sets, daily range): BP systolic 107–112; BP diastolic 57–58; PULSE 78–98; RESP 16–17; O2SAT 96–98
[2025-02-04 00:46] LABS: Appearance Urine UA TURBID; Bilirubin Urine UA 1+ (NEGATIVE); Color Urine UA RED; Glucose Urine UA NEGATIVE (Negative); Ketones Urine UA NEGATIVE (NEGATIVE); Leukocyte Esterase Urine UA 1+ (NEGATIVE); Nitrite Urine UA POSITIVE (Negative); Occult Blood Urine UA 3+ (Negative); Protein Urine UA 3+ (Negative); Specific Gravity Urine UA 1.015 (1.000-1.035); Urobilinogen Urine UA 1.0 E.U./dL (0.2); pH Urine UA 6.5 (4.5-8.0)
[2025-02-04 00:48] LABS: Culture Indicated Urine Specimen Cultured; Ictotest Urine Negative (Negative)
== END 2025-02-04 04:27 | disposition home or self-care (01) ==
PROVIDERS: Emergency Provider Emergency Medicine; PCP Internal Medicine
DX: R31.9 Hematuria, unspecified (principal); N39.0 Urinary tract infection, site not specified; N20.1 Calculus of ureter
CPT/HCPCS: 36415; 51700; 51798; 80053; 81001; 85025; 87086; 96365; 99284; 99285; J0696

== ENCOUNTER 2025-02-07 05:08 | Emergency (ER) | payer MEDICARE, MEDICAID, SELFPAY ==
[2024-12-19 18:38] VITALS: BMI 34.0
[2025-02-07] VITALS (25 sets, daily range): BP systolic 100–137; BP diastolic 52–80; PULSE 82–94; RESP 17; TEMP 36.6; O2SAT 93–99; BMI 43.8
--- NOTE | 2025-02-07 05:26 | PC.NURSE ---
Pt has been seen multiple times for this issue. He currently has a 22 F 3-way catheter in. At [facility] they flush it 2 times a day, but last night the nurse noted leaking around catheter (bloody). Brief was cleaned at that time, had new leakage upon arrival to facility today.
--- NOTE | 2025-02-07 05:27 | ED.MALEGU ---
HPI - Male Genitourinary <Roel Young MD - Last Filed: 02/08/25 00:22> General Chief complaint: Urogenital-Male Stated complaint: Catheter problem Time Seen by Provider: 02/07/25 05:27 Source: EMS Mode of arrival: EMS History of Present Illness HPI Narrative: 64-year-old male with a history of multiple sclerosis and issues with his herrera catheter. Just recently in December 2024 patient was admitted for septic shock secondary to UTI and nephrolithiasis. Patient does have an upcoming appointment with his urologist Dr. Dee at [facility] on February 19, 2025. Patient was just seen here recently few days ago and had a 3 way Herrera catheter placed and was treated for a UTI with Rocephin and sent home with some p.o. antibiotics cefepime. Currently the patient is asymptomatic but as the nurse was taking care of his Herrera at his facility, they noticed a lot of blood around his meatus as well as in the catheter itself. Related Data Home Medications ?Medication ?Instructions ?Recorded ?Confirmed aspirin 81 mg tablet 81 mg PO QAM 12/30/20 02/07/25 bismuth subsalicylate 262 mg/15 mL 262 mg PO Q6HR PRN Loose Stool 12/30/20 02/07/25 oral suspension (Pepto-Bismol) docusate sodium 100 mg capsule 200 mg PO BID 12/30/20 04/30/23 ferrous sulfate 325 mg (65 mg 325 mg PO QAM 12/30/20 04/30/23 iron) capsule,extended release pantoprazole 40 mg tablet,delayed 40 mg PO QAM 12/30/20 04/30/23 release atorvastatin 20 mg tablet 20 mg PO BEDTIME 04/12/21 02/07/25 insulin glargine 100 unit/mL (3 30 unit SUBCUT QPM 04/12/21 04/30/23 mL) subcutaneous pen (Lantus Solostar U-100 Insulin) nystatin 100,000 unit/gram topical 1 applic topical BID 04/12/21 04/30/23 ointment torsemide 20 mg tablet 20 mg PO QAM 04/12/21 04/30/23 loperamide 2 mg capsule 2 mg PO BID PRN Diarrhea 05/10/21 04/30/23 polyethylene glycol 3350 17 gram 17 g PO QAM 05/10/21 04/30/23 oral powder packet calcium carbonate (Calcium Antacid) 400 mg PO TID 11/13/22 04/30/23 hydrocodone 5 mg-acetaminophen 325 1 tab PO Q4HR PRN Pain (Scale 11/13/22 04/30/23 mg tablet Score 4-6) potassium chloride 10 mEq 10 meq PO QAM 11/13/22 04/30/23 tablet,extended release ondansetron HCl 4 mg tablet 4 mg PO Q8HR PRN Nausea 12/29/22 04/30/23 Previous Rx's ?Medication ?Instructions ?Recorded cefdinir 300 mg capsule 300 mg PO Q12H #14 caps 02/04/25 Allergies Allergy/AdvReac Type Severity Reaction Status Date / Time No Known Drug Allergies Allergy Verified 02/07/25 05:18 Review of Systems <Roel Young MD - Last Filed: 02/08/25 00:22> Review of Systems ROS Unobtainable: All systems reviewed & are unremarkable except as noted in HPI and below Patient History <Roel Young MD - Last Filed: 02/08/25 00:22> Medical History Chronic kidney disease, stage IV (severe) History of neurogenic bladder Recurrent UTI (urinary tract infection) Stroke Neurogenic bladder Chronic anemia Chronic kidney disease Hypertension Hyperlipidemia Type 2 diabetes mellitus Multiple sclerosis Surgical History History of circumcision History of knee replacement Hx of hernia repair Family History Grandfather Coronary artery disease Brother Hyperlipidemia Hypertension Social History marital status: unmarried,single number of children: 1 household members: none Smoking Status: Former smoker alcohol intake: former substance use type: does not use Smoking Status: Former smoker tobacco type: cigarettes alcohol intake frequency: holidays/special occasions only Exam <Roel Young MD - Last Filed: 02/08/25 00:22> Narrative Exam Narrative: General: Patient appears to be in no acute distress, acting appropriately Head: normocephalic, atraumatic, HEENT: Pupils equal round reactive, eyes tracking well, neck supple, no JVD Heart: regular rate and rhythm, no murmurs, rubs, or gallops heard Lungs: clear to auscultation, no adventitious sounds Abdomen: soft , nontender, nondistended, positive bowel sounds g/u: blood seen around meatus of penis where catheter was placed Neurological: no focal neurological signs, moving all extremities well, alert and oriented x3, Psych: good judgment ,good insight, mood is normal. Initial Vital Signs Initial Vital Signs: Vital Signs Pulse Rate 88 02/07/25 05:12 Blood Pressure 122/62 02/07/25 05:12 Pulse Oximetry 98 02/07/25 05:12 <Alesia Fung DO - Last Filed: 02/07/25 15:09> Initial Vital Signs Initial Vital Signs: Vital Signs Pulse Rate 88 02/07/25 05:12 Blood Pressure 122/62 02/07/25 05:12 Pulse Oximetry 98 02/07/25 05:12 Course <Roel Young MD - Last Filed: 02/08/25 00:22> Orders Ordered: ED Orders 02/07/25 06:23 UA dip [Urinalysis Screen (Dip Only)] Stat 02/07/25 06:42 CBC Auto Diff [Complete Blood Count AUTO DIFF] Stat CMP [Comprehensive Metabolic Panel] Stat PT [Prothrombin Time INR] Stat Procalcitonin Stat 02/07/25 09:23 CT kidney ureter bladder (KUB) Stat Reevaluation(s) Reevaluation #1: Upon re-evaluation, patient is more comfortable after a new [address] was [address] by nurse. There is less hematuria seen in the catheter. Vital Signs Vital signs: Vital Signs - 8 hr 02/07/25 07:30 02/07/25 07:30 02/07/25 08:00 Pulse Rate 86 Blood Pressure 100/52 L 114/53 L Pulse Oximetry 96 02/07/25 08:00 02/07/25 08:30 02/07/25 08:30 Pulse Rate 85 85 Blood Pressure 104/52 L Pulse Oximetry 96 96 02/07/25 09:00 02/07/25 09:00 02/07/25 09:30 Pulse Rate 84 83 Blood Pressure 113/59 L Pulse Oximetry 97 97 02/07/25 10:00 02/07/25 10:26 02/07/25 10:26 Pulse Rate 82 92 H Blood Pressure 102/58 L Pulse Oximetry 97 99 02/07/25 10:30 02/07/25 11:00 02/07/25 11:30 Pulse Rate 86 85 90 Blood Pressure Pulse Oximetry 96 95 96 02/07/25 12:00 02/07/25 12:30 02/07/25 13:00 Pulse Rate 90 93 H Blood Pressure Pulse Oximetry 93 96 97 02/07/25 13:07 02/07/25 13:07 02/07/25 13:30 Pulse Rate Blood Pressure 137/63 Pulse Oximetry 98 98 02/07/25 14:00 02/07/25 14:30 Pulse Rate 94 H 89 Blood Pressure Pulse Oximetry 96 95 <Alesia Fung, DO - Last Filed: 02/07/25 15:09> Orders Ordered: ED Orders 02/07/25 06:23 UA dip [Urinalysis Screen (Dip Only)] Stat 02/07/25 06:42 CBC Auto Diff [Complete Blood Count AUTO DIFF] Stat CMP [Comprehensive Metabolic Panel] Stat PT [Prothrombin Time INR] Stat Procalcitonin Stat 02/07/25 09:23 CT kidney ureter bladder (KUB) Stat Vital Signs Vital signs: Vital Signs - 8 hr 02/07/25 07:30 02/07/25 07:30 02/07/25 08:00 Pulse Rate 86 Blood Pressure 100/52 L 114/53 L Pulse Oximetry 96 02/07/25 08:00 02/07/25 08:30 02/07/25 08:30 Pulse Rate 85 85 Blood Pressure 104/52 L Pulse Oximetry 96 96 02/07/25 09:00 02/07/25 09:00 02/07/25 09:30 Pulse Rate 84 83 Blood Pressure 113/59 L Pulse Oximetry 97 97 02/07/25 10:00 02/07/25 10:26 02/07/25 10:26 Pulse Rate 82 92 H Blood Pressure 102/58 L Pulse Oximetry 97 99 02/07/25 10:30 02/07/25 11:00 02/07/25 11:30 Pulse Rate 86 85 90 Blood Pressure Pulse Oximetry 96 95 96 02/07/25 12:00 02/07/25 12:30 02/07/25 13:00 Pulse Rate 90 93 H Blood Pressure Pulse Oximetry 93 96 97 09/28/25 13:07 02/07/25 13:07 02/07/25 13:30 Pulse Rate Blood Pressure 137/63 Pulse Oximetry 98 98 02/07/25 14:00 02/07/25 14:30 Pulse Rate 94 H 89 Blood Pressure Pulse Oximetry 96 95 MDM - Male Genitourinary <Roel Young MD - Last Filed: 02/08/25 00:22> Lab Data 02/07/25 06:42 02/07/25 06:42 Labs: Lab Results 02/07/25 Range/Units 06:42 WBC 4.9 (4.5-11.0) X10^3/uL RBC 4.40 L (4.5-5.9) X10^6/uL Hgb 12.3 L (13.5-17.5) g/dL Hct 36.8 L (41-53) % MCV 83.6 (80-100) fL MCH 27.9 (26-34) PG MCHC 33.4 (30-36) % RDW 15.7 H (11.6-14.8) % Plt Count 260 (150-400) X10^3/uL Neut % (Auto) 51.8 (50-75) % Lymph % (Auto) 24.0 L (25-40) % Gem % (Auto) 14.4 H (3-14) % Eos % (Auto) 8.6 H (2-4) % Baso % (Auto) 1.2 (0-2) % Neut # (Auto) 2600 (4712-4895) /uL Lymph # (Auto) 1200 (2293-0497) /uL Gem # (Auto) 700 (0-900) /uL Eos # (Auto) 400 (0-450) /uL Baso # (Auto) 100 (0-100) /uL PT 12.7 H (9.4-12.5) SECONDS INR 1.1 (0.9-1.3) Sodium 137 (137-145) mmol/L Potassium 3.3 L (3.4-5.1) mmol/L Chloride 101 (98-107) mmol/L Carbon Dioxide 25 (22-32) mmol/L BUN 68 H (9-20) mg/dL Creatinine 2.06 H (0.66-1.25) mg/dL Estimated GFR 35 L (>60) mL/min BUN/Creatinine Ratio 33.0 H (6-22) Glucose 169 H (70-99) mg/dL Calcium 8.6 (8.4-10.2) mg/dL Total Bilirubin 0.3 (0.2-1.3) mg/dL AST 18 (17-59) IU/L ALT 14 (<50) IU/L Alkaline Phosphatase 63 (38-126) U/L Total Protein 6.3 (6.3-8.2) g/dL Albumin 3.7 (3.5-5.0) g/dL Globulin 2.6 (1.7-4.1) g/dL Albumin/Globulin Ratio 1.4 (1.0-2.8) Procalcitonin 0.152 (<0.5) ng/mL MDM Narrative Medical decision making narrative: 64-year-old male with a neurogenic bladder from multiple sclerosis presents with multiple catheter issues, recent septic shock from a UTI and recently treated with another UTI. Patient was brought in for hematuria which is now clearing up after a new 3 way Herrera catheter was placed. Patient care was transferred to [facility] physician on Dr. Fung <Alesia Fung, DO - Last Filed: 02/07/25 15:09> Lab Data Labs: Lab Results 02/07/25 Range/Units 06:42 WBC 4.9 (4.5-11.0) X10^3/uL RBC 4.40 L (4.5-5.9) X10^6/uL Hgb 12.3 L (13.5-17.5) g/dL Hct 36.8 L (41-53) % MCV 83.6 (80-100) fL MCH 27.9 (26-34) PG MCHC 33.4 (30-36) % RDW 15.7 H (11.6-14.8) % Plt Count 260 (150-400) X10^3/uL Neut % (Auto) 51.8 (50-75) % Lymph % (Auto) 24.0 L (25-40) % Gem % (Auto) 14.4 H (3-14) % Eos % (Auto) 8.6 H (2-4) % Baso % (Auto) 1.2 (0-2) % Neut # (Auto) 2600 (2767-9286) /uL Lymph # (Auto) 1200 (6706-0076) /uL Gem # (Auto) 700 (0-900) /uL Eos # (Auto) 400 (0-450) /uL Baso # (Auto) 100 (0-100) /uL PT 12.7 H (9.4-12.5) SECONDS INR 1.1 (0.9-1.3) Sodium 137 (137-145) mmol/L Potassium 3.3 L (3.4-5.1) mmol/L Chloride 101 (98-107) mmol/L Carbon Dioxide 25 (22-32) mmol/L BUN 68 H (9-20) mg/dL Creatinine 2.06 H (0.66-1.25) mg/dL Estimated GFR 35 L (>60) mL/min BUN/Creatinine Ratio 33.0 H (6-22) Glucose 169 H (70-99) mg/dL Calcium 8.6 (8.4-10.2) mg/dL Total Bilirubin 0.3 (0.2-1.3) mg/dL AST 18 (17-59) IU/L ALT 14 (<50) IU/L Alkaline Phosphatase 63 (38-126) U/L Total Protein 6.3 (6.3-8.2) g/dL Albumin 3.7 (3.5-5.0) g/dL Globulin 2.6 (1.7-4.1) g/dL Albumin/Globulin Ratio 1.4 (1.0-2.8) Procalcitonin 0.152 (<0.5) ng/mL Imaging Data CT scan - abdomen/pelvis: Radiologist's Impression: PROCEDURE: CT KIDNEY URETER BLADDER (KUB) INDICATIONS: on going hematuria with right kidney stone TECHNIQUE: Axial sections were acquired from the lung bases to the pubic symphysis. Coronal and sagittal reformats were performed. For radiation dose reduction, the following was used: automated exposure control, adjustment of mA and/or kV according to patient size. COMPARISON: [facility], CT, CT KIDNEY URETER BLADDER (KUB), 12/29/2022, 2:55. FINDINGS: Image quality: Diagnostic. Lower Chest: Bibasilar dependent atelectasis and trace bilateral pleural effusion. Heart size is enlarged, no pericardial effusion. Small hiatal hernia. URINARY: Right Kidney: Presence of right-sided ureteral stent. No hydronephrosis or obstructing stones. Mild right perinephric fat stranding is seen. Right Ureter: No significant hydroureter. Left Kidney: No obstructing stones or hydronephrosis. Nonspecific left perinephric fat stranding. Left Ureter: Mild distal hydroureter without obstructing stones. Bladder: Herrera catheter in mostly decompressed urinary bladder. Diffuse bladder wall thickening. Hyperdensity within bladder lumen is noted which may represent blood clots. No definite calcified bladder stones or discrete bladder wall mass. ABDOMEN: Liver: No contour-deforming solid mass. Gallbladder: No radiopaque gallstones or wall thickening. Biliary ducts: No biliary dilation. Pancreas: No ductal dilation. Spleen: Size is within normal limits. Adrenal Glands: No adrenal nodules. Stomach and Bowel: Moderate fecal stasis in the colon is seen extending to sigmoid colon and rectum. No bowel obstruction or abnormal bowel wall thickening. No abscess collection. Peritoneum: No abnormal intraperitoneal fluid. No free air. Ventral Wall: No hernia. Abdominal Nodes: No enlarged retroperitoneal or mesenteric lymph nodes. Vessels: Aorta and inferior vena cava are normal in size. PELVIS: Pelvic Organs: Unremarkable. Pelvic Nodes: Unremarkable. Miscellaneous: No inguinal hernias are seen. Bones: No aggressive appearing bony lesions. IMPRESSION: 1. Presence of right-sided ureteral stent. No hydronephrosis or hydroureter. Nonspecific bilateral perinephric fat stranding concerning for pyelonephritis. 2. Herrera catheter in bladder lumen. Bladder wall thickening and suggestion of blood clots within bladder lumen. No definite bladder wall mass. No calcified bladder stones. Finding may represent cystitis suggest urological correlation. 3. Moderate constipation. No bowel obstruction or abnormal bowel wall thickening. No free fluid or free air. 4. Trace bilateral pleural effusion and bibasilar dependent atelectasis. Dictated by: Elliott Neri M.D. on 02/07/2025 at 10:43 MDM Narrative Medical decision making narrative: 64-year-old male with a neurogenic bladder from multiple sclerosis presents with multiple catheter issues, recent septic shock from a UTI and recently treated with another UTI. Patient was brought in for hematuria which is now clearing up after a new 3 way Herrera catheter was placed. Patient care was transferred to [facility] physician on Dr. Kenton Fung-patient is signed out to me by Dr. Young I have seen evaluated myself. Patient returns for ongoing hematuria. Urinalysis from February 03 does not show any growth. Blood work overall reassuring no leukocytosis no electrolyte abnormality kidney function within normal limits. 0930 patient has had 3-1/2 L irrigated it continues to be serosanguineous. Getting CT KUB we will contact [facility] urology after CT KUB shows right ureteral stent in place, bladder wall thickening and suggest an of blood clots in the bladder lumen 11:15 Dr. Ly, urology at [facility] updated on patient's symptoms test results agrees that patient should be transferred over for continuity of care and ongoing hematuria. Awaiting for hospital Patient continues to require ongoing irrigation 1400 DR. Garcia accept Patient remained hemodynamically stable while in the emergency department. Discharge Plan Departure Patient Disposition: [facility] Clinical Impression: Hematuria Prescriptions: No Action torsemide 20 mg tablet 20 mg PO QAM nystatin 100,000 unit/gram ointment 1 applic topical BID pantoprazole 40 mg Tablet,Delayed Release (Dr/Ec) 40 mg PO QAM bismuth subsalicylate [Pepto-Bismol] 262 mg/15 mL Suspension 262 mg PO Q6HR PRN (Reason: Loose Stool) docusate sodium 100 mg Capsule 200 mg PO BID aspirin 81 mg Tablet 81 mg PO QAM ferrous sulfate 325 mg (65 mg iron) Capsule, Extended Release 325 mg PO QAM atorvastatin 20 mg tablet 20 mg PO BEDTIME Lantus Solostar U-100 Insulin 100 unit/mL (3 mL) insulin pen 30 unit SUBCUT QPM Patient Comments: 5 units given at bedtime for BS 76 on 04/29/23 loperamide 2 mg capsule 2 mg PO BID PRN (Reason: Diarrhea) polyethylene glycol 3350 17 gram powder in packet 17 g PO QAM ondansetron HCl 4 mg tablet 4 mg PO Q8HR PRN (Reason: Nausea) hydrocodone-acetaminophen 5-325 mg tablet 1 tab PO Q4HR PRN (Reason: Pain (Scale Score 4-6)) potassium chloride 10 mEq tablet extended release 10 meq PO QAM calcium carbonate [Calcium Antacid] 200 mg calcium (500 mg) tablet,chewable 400 mg PO TID Rx Instructions: with meals for CKD cefdinir 300 mg capsule 300 mg PO Q12H Qty: 14 0RF Referrals: Tolu Solis MD [Primary Care Provider, Internal Medicine]
--- NOTE | 2025-02-07 06:30 | PC.NURSE ---
Replaced old 22 fr with new [address] due to leaking around catheter
[2025-02-07 06:54] LABS: Add Manual Diff / Slide Review NO; Hematocrit 36.8 % (41-53); Hemoglobin 12.3 g/dL (13.5-17.5); Lymphocytes Absolute Auto 1200 /uL (1100-4500); Mean Corpuscular HGB Conc 33.4 % (30-36); Mean Corpuscular Hemoglobin 27.9 PG (26-34); Mean Corpuscular Volume 83.6 fL (80-100); Platelet Count 260 X10^3/uL (150-400)
[2025-02-07 07:09] LABS: INR 1.1 (0.9-1.3); Prothrombin Time 12.7 SECONDS (9.4-12.5)
[2025-02-07 07:13] LABS: Alanine Aminotransferase 14 IU/L (<50); Albumin 3.7 g/dL (3.5-5.0); Albumin Globulin Ratio 1.4 (1.0-2.8); Alkaline Phosphatase 63 U/L (38-126); Blood Urea Nitrogen 68 mg/dL (9-20); Calcium 8.6 mg/dL (8.4-10.2); Carbon Dioxide 25 mmol/L (22-32); Chloride 101 mmol/L (98-107); Estimated Glomerular Filt Rate 35 mL/min (>60); Globulin 2.6 g/dL (1.7-4.1); Glucose 169 mg/dL (70-99); HEMOLYSIS < 15 (0-50); Potassium 3.3 mmol/L (3.4-5.1); Sodium 137 mmol/L (137-145); Total Protein 6.3 g/dL (6.3-8.2)
--- NOTE | 2025-02-07 07:23 | PC.NURSE ---
Update given to LEANNA Singletary from [facility]. Advised her that he will be here for a little while longer.
[2025-02-07 07:29] LABS: Procalcitonin 0.152 ng/mL (<0.5)
--- NOTE | 2025-02-07 09:23 | DI.CT.S_ITS ---
PROCEDURE: CT KIDNEY URETER BLADDER (KUB) INDICATIONS: on going hematuria with right kidney stone TECHNIQUE: Axial sections were acquired from the lung bases to the pubic symphysis. Coronal and sagittal reformats were performed. For radiation dose reduction, the following was used: automated exposure control, adjustment of mA and/or kV according to patient size. COMPARISON: [facility], CT, CT KIDNEY URETER BLADDER (KUB), 12/29/2022, 2:55. FINDINGS: Image quality: Diagnostic. Lower Chest: Bibasilar dependent atelectasis and trace bilateral pleural effusion. Heart size is enlarged, no pericardial effusion. Small hiatal hernia. URINARY: Right Kidney: Presence of right-sided ureteral stent. No hydronephrosis or obstructing stones. Mild right perinephric fat stranding is seen. Right Ureter: No significant hydroureter. Left Kidney: No obstructing stones or hydronephrosis. Nonspecific left perinephric fat stranding. Left Ureter: Mild distal hydroureter without obstructing stones. Bladder: Hightower catheter in mostly decompressed urinary bladder. Diffuse bladder wall thickening. Hyperdensity within bladder lumen is noted which may represent blood clots. No definite calcified bladder stones or discrete bladder wall mass. ABDOMEN: Liver: No contour-deforming solid mass. Gallbladder: No radiopaque gallstones or wall thickening. Biliary ducts: No biliary dilation. Pancreas: No ductal dilation. Spleen: Size is within normal limits. Adrenal Glands: No adrenal nodules. Stomach and Bowel: Moderate fecal stasis in the colon is seen extending to sigmoid colon and rectum. No bowel obstruction or abnormal bowel wall thickening. No abscess collection. Peritoneum: No abnormal intraperitoneal fluid. No free air. Ventral Wall: No hernia. Abdominal Nodes: No enlarged retroperitoneal or mesenteric lymph nodes. Vessels: Aorta and inferior vena cava are normal in size. PELVIS: Pelvic Organs: Unremarkable. Pelvic Nodes: Unremarkable. Miscellaneous: No inguinal hernias are seen. Bones: No aggressive appearing bony lesions. IMPRESSION: 1. Presence of right-sided ureteral stent. No hydronephrosis or hydroureter. Nonspecific bilateral perinephric fat stranding concerning for pyelonephritis. 2. Hightower catheter in bladder lumen. Bladder wall thickening and suggestion of blood clots within bladder lumen. No definite bladder wall mass. No calcified bladder stones. Finding may represent cystitis suggest urological correlation. 3. Moderate constipation. No bowel obstruction or abnormal bowel wall thickening. No free fluid or free air. 4. Trace bilateral pleural effusion and bibasilar dependent atelectasis. Dictated by: Elliott Neri M.D. on 02/07/2025 at 10:43 Approved by: Elliott Neri M.D. on 02/07/2025 at 10:46
--- NOTE | 2025-02-07 10:32 | PC.NURSE ---
CBI paused for 1 hr. Noted to have 200ml dark red UOP with very small clots noted. No blood noted at the meatus. Provider made aware. CBI restarted.
--- NOTE | 2025-02-07 11:06 | PC.NURSE ---
Spoke with Della Smith NP at [facility]. Updated on plan of care. Awaiting possible transfer for urology consult
--- NOTE | 2025-02-07 12:16 | PC.NURSE ---
Spoke with Kerri RN at [facility]. Updated on pt plan of care. Pt also requested his head phones and eye mask. Per RN at [facility], unable to leave facility to drop off pt's requested supplies. Pt made aware.
--- NOTE | 2025-02-07 15:33 | PC.NURSE ---
Pt transferred to [facility] with [facility]. Report given to paramedics. Okay to discontinue CBI for transport per provider. UOP remains light pink at transfer. Attempted to call [facility] RN x3 - unavailable. Awaiting return call for report. Pt also with large BM at time of transfer. Pt cleaned, barrier cream placed, and new depends placed on pt.
== END 2025-02-07 16:05 | disposition short-term general hospital (02) ==
PROVIDERS: Family Medicine; Emergency Provider Emergency Medicine; PCP Internal Medicine
DX: R31.9 Hematuria, unspecified (principal); Z96.0 Presence of urogenital implants; G35 Multiple sclerosis
CPT/HCPCS: 36415; 74176; 80053; 84145; 85025; 85610; 99283; 99284

== ENCOUNTER → 2025-02-16 09:32 | Outpatient (CLI) | payer MEDICARE, MEDICAID, SELFPAY ==
[2024-12-19 18:38] VITALS: BMI 34.0
== END ==
LOC: WC 09:35
PROVIDERS: PCP Internal Medicine; Referring Provider Internal Medicine; Visit Provider Surgery
DX: L89.323 Pressure ulcer of left buttock, stage 3 (principal); L89.313 Pressure ulcer of right buttock, stage 3; L24.A2 Irritant contact dermatitis due to fecal, urinary or dual incontinence; E11.628 Type 2 diabetes mellitus with other skin complications; E11.22 Type 2 diabetes mellitus with diabetic chronic kidney disease; N18.6 End stage renal disease; L90.5 Scar conditions and fibrosis of skin; L91.8 Other hypertrophic disorders of the skin; Z74.09 Other reduced mobility
CPT/HCPCS: 99212; 99213

== ENCOUNTER → 2025-02-27 22:46 | Outpatient (ROUT) | payer MEDICARE, MEDICAID, SELFPAY ==
[2024-12-19 18:38] VITALS: BMI 34.0
[2025-02-27 22:53] LABS: Appearance Urine UA CLOUDY; Bilirubin Urine UA NEGATIVE (NEGATIVE); Color Urine UA YELLOW; Glucose Urine UA NEGATIVE (Negative); Ketones Urine UA NEGATIVE (NEGATIVE); Leukocyte Esterase Urine UA 3+ (NEGATIVE); Nitrite Urine UA NEGATIVE (Negative); Occult Blood Urine UA 3+ (Negative); Protein Urine UA 1+ (Negative); Specific Gravity Urine UA <=1.005 (1.000-1.035); Urobilinogen Urine UA 0.2 E.U./dL (0.2); pH Urine UA 6.5 (4.5-8.0)
[2025-02-27 23:04] LABS: Culture Indicated Urine Specimen Cultured
== END ==
PROVIDERS: PCP Internal Medicine; Visit Provider Hospitalist
DX: R82.90 Unspecified abnormal findings in urine (principal)
CPT/HCPCS: 81001; 87077; 87086; 87186

== ENCOUNTER 2025-03-05 16:08 | Inpatient (IN) | payer MEDICARE, MEDICAID, SELFPAY ==
[2024-12-19 18:38] VITALS: BMI 34.0
[2025-03-05] VITALS (11 sets, daily range): BP systolic 121–155; BP diastolic 60–70; PULSE 78–87; RESP 16; TEMP 35.9–36.8; O2SAT 97–99; BMI 34.0
[2025-03-05 17:38] LABS: Add Manual Diff / Slide Review NO; Hematocrit 37.7 % (41-53); Hemoglobin 12.6 g/dL (13.5-17.5); Lymphocytes Absolute Auto 1400 /uL (1100-4500); Mean Corpuscular HGB Conc 33.4 % (30-36); Mean Corpuscular Hemoglobin 28.1 PG (26-34); Mean Corpuscular Volume 84.3 fL (80-100); Platelet Count 337 X10^3/uL (150-400)
[2025-03-05] MEDS: CEFEPIME 2 GM in SODIUM CHLORIDE 0.9% 100 ML IV (17:41)
[2025-03-05 17:44] LABS: Alanine Aminotransferase 20 IU/L (<50); Albumin 4.1 g/dL (3.5-5.0); Albumin Globulin Ratio 1.4 (1.0-2.8); Alkaline Phosphatase 79 U/L (38-126); Blood Urea Nitrogen 61 mg/dL (9-20); Calcium 9.2 mg/dL (8.4-10.2); Carbon Dioxide 26 mmol/L (22-32); Chloride 104 mmol/L (98-107); Estimated Glomerular Filt Rate 34 mL/min (>60); Globulin 3.0 g/dL (1.7-4.1); Glucose 131 mg/dL (70-99); HEMOLYSIS < 15 (0-50); Lipase 169 U/L (23-300); Potassium 4.1 mmol/L (3.4-5.1); Sodium 140 mmol/L (137-145); Total Protein 7.1 g/dL (6.3-8.2)
--- NOTE | 2025-03-05 20:07 | ED.MALEGU ---
HPI - Male Genitourinary General Chief complaint: Urogenital-Male Stated complaint: +Pseudomonas, cath not draining, [place] Time Seen by Provider: 03/05/25 16:10 Source: patient, RN notes reviewed and old records reviewed Limitations: no limitations History of Present Illness HPI Narrative: 64-year-old male history of multiple sclerosis, chronic indwelling Hightower catheter sent from [place] for positive Pseudomonas in his urine/catheter sent for IV antibiotics. He has had no complications with the his catheter. Patient states he has not been feeling ill otherwise. Denies fevers, no chest abdominal back or flank pain. No nausea or vomiting. He notes he has got a chronic catheter he states it has changed out monthly. He denies any new changes to bowel movements. Notes he is on an injectable Ocrevus q.6 months for his MS. Patient notes prior knee surgery bilaterally, prior hernia repair as a child. No known drug allergies. No tobacco, alcohol or recreational drugs. Currently lives at [facility] living [facility]. His primary care physician as at [facility]. Related Data Home Medications ?Medication ?Instructions ?Recorded ?Confirmed aspirin 81 mg tablet 81 mg PO QAM 12/30/20 03/05/25 bismuth subsalicylate 262 mg/15 mL 262 mg PO Q6HR PRN Loose Stool 12/30/20 03/05/25 oral suspension (Pepto-Bismol) docusate sodium 100 mg capsule 100 mg PO BID 12/30/20 03/05/25 ferrous sulfate 325 mg (65 mg 325 mg PO QAM 12/30/20 03/05/25 iron) capsule,extended release pantoprazole 40 mg tablet,delayed 40 mg PO QAM 12/30/20 03/05/25 release atorvastatin 20 mg tablet 20 mg PO BEDTIME 04/12/21 03/05/25 insulin glargine 100 unit/mL (3 36 unit SUBCUT QPM 04/12/21 03/05/25 mL) subcutaneous pen (Lantus Solostar U-100 Insulin) nystatin 100,000 unit/gram topical 1 applic topical BID 04/12/21 03/05/25 ointment torsemide 20 mg tablet 10 mg PO QAM 04/12/21 03/05/25 loperamide 2 mg capsule 2 mg PO BID PRN Diarrhea 05/10/21 03/05/25 polyethylene glycol 3350 17 gram 17 g PO QAM 05/10/21 03/05/25 oral powder packet calcium carbonate (Calcium Antacid) 400 mg PO TID 11/13/22 04/30/23 hydrocodone 5 mg-acetaminophen 325 1 tab PO Q4HR PRN Pain (Scale 11/13/22 03/05/25 mg tablet Score 4-6) potassium chloride 10 mEq 20 meq PO QAM 11/13/22 03/05/25 tablet,extended release ondansetron HCl 4 mg tablet 4 mg PO Q8HR PRN Nausea 12/29/22 03/05/25 cholecalciferol (vitamin D3) 50 PO 03/05/25 mcg (2,000 unit) tablet (Vitamin D3) methenamine hippurate 1 gram tablet 0.5 g PO DAILY 03/05/25 03/05/25 ropinirole 0.25 mg tablet 0.25 mg PO BEDTIME 03/05/25 03/05/25 sitagliptin phosphate 25 mg tablet 25 mg PO DAILY 03/05/25 03/05/25 (Januvia) Allergies Allergy/AdvReac Type Severity Reaction Status Date / Time No Known Drug Allergies Allergy Verified 02/07/25 05:18 Review of Systems Review of Systems ROS Unobtainable: All systems reviewed & are unremarkable except as noted in HPI and below Patient History Medical History Chronic kidney disease, stage IV (severe) History of neurogenic bladder Recurrent UTI (urinary tract infection) Stroke Neurogenic bladder Chronic anemia Chronic kidney disease Hypertension Hyperlipidemia Type 2 diabetes mellitus Multiple sclerosis Surgical History History of circumcision History of knee replacement Hx of hernia repair Family History Grandfather Coronary artery disease Brother Hyperlipidemia Hypertension Social History marital status: unmarried,single number of children: 1 household members: none alcohol intake: former substance use type: does not use tobacco type: cigarettes alcohol intake frequency: holidays/special occasions only Exam Narrative Exam Narrative: GENERAL: Alert and oriented x three, male in mild distress HEENT: Head normocephalic, atraumatic, EOMI, pupils reactive, face symmetric, moist mucous membranes NECK: Supple, full range of motion CARDIOVASCULAR: Regular rate and rhythm without murmurs, rubs or gallops. RESPIRATORY: Breath sounds equal bilaterally, no wheezes rales or rhonchi. ABDOMEN: Soft, nontender. Normoactive bowel sounds all 4 quadrants. No guarding or rebound, rigidity, no mass : No CVA tenderness, indwelling Hightower catheter in place draining yellow urine EXTREMITIES: Decreased range of motion patient can move his right upper extremity he has a little to no movement in his left upper extremity hand little movement in his lower extremities.. Neurovascularly intact NEUROLOGICAL: Cranial nerves II through XII grossly intact. Moving all extremities SKIN: Warm, dry, no petechiae, no rashes or lesions. Initial Vital Signs Initial Vital Signs: Vital Signs Temperature 98.3 F 03/05/25 16:17 Pulse Rate 85 03/05/25 16:17 Respiratory Rate 16 03/05/25 16:17 Blood Pressure 137/64 03/05/25 16:17 Pulse Oximetry 99 03/05/25 16:17 Oxygen Delivery Method Room Air 03/05/25 16:17 Course Orders Ordered: ED Orders 03/05/25 17:15 Blood Culture Stat CBC Auto Diff [Complete Blood Count AUTO DIFF] Stat CMP [Comprehensive Metabolic Panel] Stat Lipase Stat Hydrocodone Bitart/Acetaminophen (Hydrocodone/Acet 5/325 Tablet) 1 tab PO Q4HR PRN PRN Reason: Pain (Scale Score 4-6) Atorvastatin Calcium (Atorvastatin 20 Mg Tablet) 20 mg PO BEDTIME AMINATA Bismuth Subsalicylate (Bismuth Subsalicylate 525 Mg/30 Ml Susp) ml PO Q6HR PRN PRN Reason: Loose Stool Docusate Sodium (Docusate 100 Mg Capsule) 100 mg PO BID AMINATA Heparin Sodium (Porcine) (Heparin 5,000 Unit/Ml Vial) 5,000 unit SUBCUT BID AMINATA Sodium Chloride (Normal Saline 0.9%) 1,000 mls @ 100 mls/hr IV CONT AMINATA Last Admin: 03/05/25 22:21 Dose: 100 mls/hr Documented By: TERESE Dextrose ([id number]) 100 mls @ 999 mls/hr IV PRN PRN PRN Reason: Hypoglycemia Insulin Glargine (Insulin Glargine 100 Unit/Ml 3ml Pen) 36 unit SUBCUT QPM AMINATA Insulin Human Lispro (Insulin Lispro 100 Unit/Ml 3ml Vial) 0 unit SUBCUT ACHS AMINATA; Protocol Loperamide HCl (Loperamide 2 Mg Capsule) 2 mg PO BID PRN PRN Reason: Diarrhea Naloxone HCl (Naloxone 0.4 Mg/Ml Vial) 0.2 mg IV Q2MIN PRN PRN Reason: Opiate Reversal Non-Formulary Medication (Aspirin) 81 mg PO QAM AMINATA Non-Formulary Medication (Ferrous Sulfate) 325 mg PO QAM AMINATA Non-Formulary Medication (Methenamine Hippurate) 0.5 gram PO DAILY AMINATA Non-Formulary Medication (Nystatin) 1 applictn TOP BID AMINATA Non-Formulary Medication (Ondansetron Hcl) 4 mg PO Q8HR PRN PRN Reason: Nausea Non-Formulary Medication (Sitagliptin Phosphate [Januvia]) 25 mg PO DAILY AMINATA Pantoprazole Sodium (Pantoprazole Dr 40 Mg Tablet) 40 mg PO QAM AMINATA Polyethylene Glycol (Polyethylene Glycol 3350 17 Gm Powd.Pack) 17 gm PO QAM AMINATA Potassium Chloride (Potassium Chloride 10 Meq Tab) 20 meq PO QAM AMINATA Ropinirole HCl (Ropinirole 0.25 Mg Tablet) 0.25 mg PO BEDTIME AMINATA Sodium Chloride (Sodium Chloride 0.9% Flush) 10 ml IV BID AMINTAA Torsemide (Torsemide 10 Mg Tablet) 10 mg PO QAM AMINATA Discontinued Medications Cefepime HCl 2 gm/ Sodium (Chloride) 100 mls @ 200 mls/hr IV NOW ONE Stop: 03/05/25 17:00 Last Infusion: 03/05/25 18:41 Dose: Infused Documented By: Admin: 03/05/25 17:41 Dose: 200 mls/hr Documented By: LUZ Vital Signs Vital signs: Vital Signs - 8 hr 03/05/25 16:17 03/05/25 19:13 03/05/25 19:14 Temperature 98.3 F Pulse Rate 85 87 82 Respiratory Rate 16 Blood Pressure 137/64 Pulse Oximetry 99 99 98 Oxygen Delivery Method Room Air 03/05/25 19:14 03/05/25 19:30 03/05/25 19:31 Temperature Pulse Rate 82 79 Respiratory Rate Blood Pressure 131/60 Pulse Oximetry 97 97 Oxygen Delivery Method 03/05/25 19:31 03/05/25 20:00 03/05/25 20:01 Temperature Pulse Rate 86 Respiratory Rate Blood Pressure 140/63 155/65 H Pulse Oximetry 97 Oxygen Delivery Method 03/05/25 20:01 03/05/25 20:30 03/05/25 20:30 Temperature Pulse Rate 86 85 Respiratory Rate Blood Pressure 150/63 H Pulse Oximetry 97 98 Oxygen Delivery Method MDM - Male Genitourinary Lab Data 03/05/25 17:15 03/05/25 17:15 Labs: Lab Results 03/05/25 Range/Units 17:15 WBC 10.8 (4.5-11.0) X10^3/uL RBC 4.47 L (4.5-5.9) X10^6/uL Hgb 12.6 L (13.5-17.5) g/dL Hct 37.7 L (41-53) % MCV 84.3 (80-100) fL MCH 28.1 (26-34) PG MCHC 33.4 (30-36) % RDW 17.5 H (11.6-14.8) % Plt Count 337 (150-400) X10^3/uL Neut % (Auto) 74.2 (50-75) % Lymph % (Auto) 13.3 L (25-40) % [place] % (Auto) 8.1 (3-14) % Eos % (Auto) 3.4 (2-4) % Baso % (Auto) 1.0 (0-2) % Neut # (Auto) 8000 H (6885-0386) /uL Lymph # (Auto) 1400 (8715-0655) /uL [place] # (Auto) 900 (0-900) /uL Eos # (Auto) 400 (0-450) /uL Baso # (Auto) 100 (0-100) /uL Sodium 140 (137-145) mmol/L Potassium 4.1 (3.4-5.1) mmol/L Chloride 104 (98-107) mmol/L Carbon Dioxide 26 (22-32) mmol/L BUN 61 H (9-20) mg/dL Creatinine 2.09 H (0.66-1.25) mg/dL Estimated GFR 34 L (>60) mL/min BUN/Creatinine Ratio 29.2 H (6-22) Glucose 131 H (70-99) mg/dL Calcium 9.2 (8.4-10.2) mg/dL Total Bilirubin 0.4 (0.2-1.3) mg/dL AST 28 (17-59) IU/L ALT 20 (<50) IU/L Alkaline Phosphatase 79 (38-126) U/L Total Protein 7.1 (6.3-8.2) g/dL Albumin 4.1 (3.5-5.0) g/dL Globulin 3.0 (1.7-4.1) g/dL Albumin/Globulin Ratio 1.4 (1.0-2.8) Lipase 169 (23-300) U/L MDM Narrative Medical decision making narrative: Labs show white count of 10.8 hemoglobin of 12.6 platelets are 337, electrolytes are appropriate BUN 61 creatinine is 2.09 looks consistent with priors glucose is 131 LFTs are normal. Blood cultures were obtained today Urine culture from 02/27/2025 is greater than 100,000 Pseudomonas aeruginosa with a gradient has a 1000 cornea bacteria Pseudomonas shows resistance to Cipro and Levaquin with sensitivities to cefepime, meropenem and Zosyn. Urine culture was reviewed, patient was given IV cefepime based on sensitivity. plan for observation for IV antibiotics. Patient received cefepime. 64-year-old male nontoxic appearing labs and vital signs do not support sepsis currently but does have resistant UTI requiring IV antibiotics. Spoke with the hospitalist Dr. Tobar @ 2045 who accepts for admission. Discharge Plan Departure Patient Disposition: Admitted as Observation Clinical Impression: Chronic indwelling Hightower catheter, Pseudomonas urinary tract infection Admit Date/Time: 03/05/25 20:49 Admit Provider: Woody Tobar
[2025-03-05] MEDS: SODIUM CHLORIDE 0.9% 1,000 ML 100 ML IV (22:21)
[2025-03-06] MEDS: DOCUSATE 100 MG CAPSULE PO ×3 (00:02→21:34)
[2025-03-06] MEDS: ATORVASTATIN 20 MG TABLET PO ×2 (00:02→21:34)
[2025-03-06] MEDS: INSULIN GLARGINE 100 UNIT/ML 3ML PEN 36 UNIT SUBCUT ×2 (00:03→17:16)
[2025-03-06] MEDS: INSULIN LISPRO 100 UNIT/ML 3ML VIAL SUBCUT ×4 (00:03→17:15)
--- NOTE | 2025-03-06 07:09 | PM.HP.1 ---
History of Present Illness History of Present Illness Date Patient Seen: 03/06/25 Time Patient Seen: 01:14 Chief complaint: +Pseudomonas, cath not draining, [place] Narrative: 64-year-old male with past medical history of multiple sclerosis, chronic indwelling Hightower catheter, GERD, hyperlipidemia and insulin-dependent diabetes presents with positive urine culture for pseudomonas. Port the patient was sent here from [place] positive Pseudomonas in his urine catheter culture that was called few days ago. The patient states that he is in his normal state of health and denies any fever, chills, nausea, vomiting, diarrhea, chest pain, abdominal pain, dysuria, shortness of breath or coughing. However the patient had a urine sent collected and was cloudy and sent for culture. Otherwise the patient has no dysuria. In the emergency room, the patient was hemodynamically stable with good blood pressure. Lab also shows no signs of sepsis but a creatinine of 2.0. Again culture from February 27, 2025 shows Pseudomonas aeruginosa that was resistant to Cipro and Levaquin and sensitive to cefepime. Her ER physician did give cefepime and IV fluid. [facility] Medical History Chronic kidney disease, stage IV (severe) History of neurogenic bladder Recurrent UTI (urinary tract infection) Stroke Neurogenic bladder Chronic anemia Chronic kidney disease Hypertension Hyperlipidemia Type 2 diabetes mellitus Multiple sclerosis Surgical History History of circumcision History of knee replacement Hx of hernia repair Family History Grandfather Coronary artery disease Brother Hyperlipidemia Hypertension Social History marital status: unmarried,single number of children: 1 household members: none alcohol intake: former substance use type: does not use Meds Home Medications and Allergies Home Medications ?Medication ?Instructions ?Recorded ?Confirmed ?Type aspirin 81 mg tablet 81 mg PO QAM 12/30/20 03/05/25 History bismuth subsalicylate 262 mg/15 mL 262 mg PO Q6HR PRN Loose Stool 12/30/20 03/05/25 History oral suspension (Pepto-Bismol) docusate sodium 100 mg capsule 100 mg PO BID 12/30/20 03/05/25 History ferrous sulfate 325 mg (65 mg 325 mg PO QAM 12/30/20 03/05/25 History iron) capsule,extended release pantoprazole 40 mg tablet,delayed 40 mg PO QAM 12/30/20 03/05/25 History release atorvastatin 20 mg tablet 20 mg PO BEDTIME 04/12/21 03/05/25 History insulin glargine 100 unit/mL (3 36 unit SUBCUT QPM 04/12/21 03/05/25 History mL) subcutaneous pen (Lantus Solostar U-100 Insulin) nystatin 100,000 unit/gram topical 1 applic topical BID 04/12/21 03/05/25 History ointment torsemide 20 mg tablet 10 mg PO QAM 04/12/21 03/05/25 History loperamide 2 mg capsule 2 mg PO BID PRN Diarrhea 05/10/21 03/05/25 History polyethylene glycol 3350 17 gram 17 g PO QAM 05/10/21 03/05/25 History oral powder packet calcium carbonate (Calcium Antacid) 400 mg PO TID 11/13/22 04/30/23 History hydrocodone 5 mg-acetaminophen 325 1 tab PO Q4HR PRN Pain (Scale 11/13/22 03/05/25 History mg tablet Score 4-6) potassium chloride 10 mEq 20 meq PO QAM 11/13/22 03/05/25 History tablet,extended release ondansetron HCl 4 mg tablet 4 mg PO Q8HR PRN Nausea 12/29/22 03/05/25 History cholecalciferol (vitamin D3) 50 PO 03/05/25 History mcg (2,000 unit) tablet (Vitamin D3) methenamine hippurate 1 gram tablet 0.5 g PO DAILY 03/05/25 03/05/25 History ropinirole 0.25 mg tablet 0.25 mg PO BEDTIME 03/05/25 03/05/25 History sitagliptin phosphate 25 mg tablet 25 mg PO DAILY 03/05/25 03/05/25 History (Januvia) Allergies Allergy/AdvReac Type Severity Reaction Status Date / Time No Known Drug Allergies Allergy Verified 02/07/25 05:18 Review of Systems Review of Systems ROS: Yes All systems reviewed with the patient and are negative except as otherwise documented Exam Vital Signs (past 8 hours): Oxygen Delivery Method Room Air Oxygen Flow Rate 0 Narrative Exam Narrative: Physical Exam: GENERAL: The patient is not in any acute distressed. Awake and alert. HEENT: Nonicteric sclerae, PERRLA, EOMI. Oropharynx clear. Moist mucous membranes. Conjunctivae appear well perfused. HEART: Regular rate and rhythm without murmurs. No lower extremities edema. LUNGS: Clear to auscultation bilaterally. No wheezing, crackles or rhonchi ABDOMEN: Soft, positive bowel sounds, nontender. SKIN: No rash, no excessive bruising, petechiae, or purpura. NEUROLOGIC: AxO x 3. Cranial nerves II-XII intact without motor/sensory deficit. Objective Labs 03/05/25 17:15 03/05/25 17:15 Labs: Laboratory Results - last 24 hr 03/05/25 03/05/25 17:15 22:07 WBC 10.8 RBC 4.47 L Hgb 12.6 L Hct 37.7 L MCV 84.3 MCH 28.1 MCHC 33.4 RDW 17.5 H Plt Count 337 Neut % (Auto) 74.2 Lymph % (Auto) 13.3 L [place] % (Auto) 8.1 Eos % (Auto) 3.4 Baso % (Auto) 1.0 Neut # (Auto) 8000 H Lymph # (Auto) 1400 [place] # (Auto) 900 Eos # (Auto) 400 Baso # (Auto) 100 Sodium 140 Potassium 4.1 Chloride 104 Carbon Dioxide 26 BUN 61 H Creatinine 2.09 H Estimated GFR 34 L BUN/Creatinine Ratio 29.2 H Glucose 131 H POC Whole Bld Glucose 205 H Calcium 9.2 Total Bilirubin 0.4 AST 28 ALT 20 Alkaline Phosphatase 79 Total Protein 7.1 Albumin 4.1 Globulin 3.0 Albumin/Globulin Ratio 1.4 Lipase 169 Assessment & Plan Assessment & Plan narrative: UTI with indwelling Hightower catheter and urine positive for Pseudomonas. Admit the patient to inpatient medical floor. Of note patient not septic and hemodynamically stable. Continue IV cefepime and will likely need to arrange for outpatient IV continuation of cefepime due to resistant Pseudomonas. Insulin-dependent diabetes. Monitor glucose with subcu insulin. GERD. Resume home PPI. Hyperlipidemia. Resume home statin. DVT prophylaxis heparin subcu. CODE STATUS full code. Disposition likely long-term care facility in 2 days once IV antibiotic is set up as outpatient - As the provider of this telehealth evaluation, requested by the patient's evaluating physician, I attest that I introduced myself to the patient, provided my credentials and determined that telemedicine via a real-time, 2 way interactive audio and video platform is an appropriate and effective means of providing this service. - I reviewed the patient's chart and had a discussion with the member of the patient's treatment team. - The patient and I mutually agreed with continuation of this evaluation via telemedicine. The patient consented for the telemedicine evaluation. - This virtual encounter was taken place from [place] by Dr. Woody Tobar. The patient was evaluated at [facility]. The encounter was approximately 35 minutes. The nurse was present during the entire time of the encounter and was able to assists with exam/stethoscope. Time-Based Coding :: [TOTAL MINUTES] spent with patient and on the chart (including review of chart, obtaining history, exam, reviewing outside data, placing orders, documenting exam and treatment plan, and counseling patient) on [DATE].
--- NOTE | 2025-03-06 07:28 | PM.HP.1 ---
History of Present Illness History of Present Illness Date Patient Seen: 03/06/25 Chief complaint: +Pseudomonas, cath not draining, cypress Narrative: This is a 64-year-old male with a past medical history of multiple sclerosis, chronic indwelling Hightower catheter, GERD, hyperlipidemia and insulin-dependent diabetes who presented from [facility] with a positive urine culture(02/27) for pseudomonas. This was collected in his urine catheter a few days ago. The patient states that he is in his normal state of health and denies any fever, chills, nausea, vomiting, diarrhea, chest pain, abdominal pain, dysuria, shortness of breath or coughing. However the patient had a urine sent because it was cloudy. Otherwise the patient has no dysuria. In the emergency room, the patient was hemodynamically stable with good blood pressure. Lab also shows no signs of sepsis but a creatinine of 2.0. The culture shows Pseudomonas aeruginosa that was resistant to Cipro and Levaquin and sensitive to cefepime. This presents a dilemma of trying to balance antibiotic stewardship/the probable catheter colonization versus the odds of an actual Pseudomonas catheter related UTI. Cloudy urine in a catheter, independent of other signs is no longer considered a definite UTI. Exam Narrative Exam Narrative: Physical Exam: GENERAL: The patient is not in any acute distress. Awake and alert. Oriented x3. HEENT: Nonicteric sclerae, PERRLA, EOMI. Oropharynx clear. Moist mucous membranes. Conjunctivae appear well perfused. HEART: Regular rate and rhythm without murmurs. No lower extremities edema. LUNGS: Clear to auscultation bilaterally. No wheezing, crackles or rhonchi ABDOMEN: Soft, positive bowel sounds, nontender. No organomegaly. SKIN: No rash, no excessive bruising, petechiae, or purpura. No jaundice. NEUROLOGIC: AxO x 3. Cranial nerves II-XII intact. No tremor. Chronic MS related diffuse musculoskeletal limb weakness. Objective Laboratory Results - last 24 hr 03/05/25 03/05/25 17:15 22:07 WBC 10.8 RBC 4.47 L Hgb 12.6 L Hct 37.7 L MCV 84.3 MCH 28.1 MCHC 33.4 RDW 17.5 H Plt Count 337 Neut % (Auto) 74.2 Lymph % (Auto) 13.[address] [place] % (Auto) 8.1 Eos % (Auto) 3.4 Baso % (Auto) 1.0 Neut # (Auto) 8000 H Lymph # (Auto) 1400 [place] # (Auto) 900 Eos # (Auto) 400 Baso # (Auto) 100 Sodium 140 Potassium 4.1 Chloride 104 Carbon Dioxide 26 BUN 61 H Creatinine 2.09 H Estimated GFR 34 L BUN/Creatinine Ratio 29.2 H Glucose 131 H POC Whole Bld Glucose 205 H Calcium 9.2 Total Bilirubin 0.4 AST 28 ALT 20 Alkaline Phosphatase 79 Total Protein 7.1 Albumin 4.1 Globulin 3.0 Albumin/Globulin Ratio 1.4 Lipase 169 Assessment & Plan Assessment & Plan narrative: UTI with indwelling Hightower catheter and urine positive for Pseudomonas. Continue IV cefepime and plan for 10 days outpatient IV continuation of cefepime due to resistant Pseudomonas. Possible catheter/bladder colonization with cloudy urine the only indication the patient can recall for the culture collection. Insulin-dependent diabetes. Monitor glucose with subcu insulin. GERD. Resume home PPI. Hyperlipidemia. Resume home statin. Multiple sclerosis with neurogenic bladder. Patient lives in an assisted living facility due to decreased mobility and care needs. DVT prophylaxis heparin subcu. CODE STATUS full code. Disposition likely long-term care facility in 2 days once IV antibiotic is set up as outpatient [facility] Medical History Chronic kidney disease, stage IV (severe) History of neurogenic bladder Recurrent UTI (urinary tract infection) Stroke Neurogenic bladder Chronic anemia Chronic kidney disease Hypertension Hyperlipidemia Type 2 diabetes mellitus Multiple sclerosis Surgical History History of circumcision History of knee replacement Hx of hernia repair Family History Grandfather Coronary artery disease Brother Hyperlipidemia Hypertension Social History marital status: unmarried,single number of children: 1 household members: none alcohol intake: former substance use type: does not use Meds Home Medications and Allergies Home Medications ?Medication ?Instructions ?Recorded ?Confirmed ?Type aspirin 81 mg tablet 81 mg PO QAM 12/30/20 03/05/25 History bismuth subsalicylate 262 mg/15 mL 262 mg PO Q6HR PRN Loose Stool 12/30/20 03/05/25 History oral suspension (Pepto-Bismol) docusate sodium 100 mg capsule 100 mg PO BID 12/30/20 03/05/25 History ferrous sulfate 325 mg (65 mg 325 mg PO QAM 12/30/20 03/05/25 History iron) capsule,extended release pantoprazole 40 mg tablet,delayed 40 mg PO QAM 12/30/20 03/05/25 History release atorvastatin 20 mg tablet 20 mg PO BEDTIME 04/12/21 03/05/25 History insulin glargine 100 unit/mL (3 36 unit SUBCUT QPM 04/12/21 03/05/25 History mL) subcutaneous pen (Lantus Solostar U-100 Insulin) nystatin 100,000 unit/gram topical 1 applic topical BID 04/12/21 03/05/25 History ointment torsemide 20 mg tablet 10 mg PO QAM 04/12/21 03/05/25 History loperamide 2 mg capsule 2 mg PO BID PRN Diarrhea 05/10/21 03/05/25 History polyethylene glycol 3350 17 gram 17 g PO QAM 05/10/21 03/05/25 History oral powder packet calcium carbonate (Calcium Antacid) 400 mg PO TID 11/13/22 04/30/23 History hydrocodone 5 mg-acetaminophen 325 1 tab PO Q4HR PRN Pain (Scale 11/13/22 03/05/25 History mg tablet Score 4-6) potassium chloride 10 mEq 20 meq PO QAM 11/13/22 03/05/25 History tablet,extended release ondansetron HCl 4 mg tablet 4 mg PO Q8HR PRN Nausea 12/29/22 03/05/25 History cholecalciferol (vitamin D3) 50 PO 03/05/25 History mcg (2,000 unit) tablet (Vitamin D3) methenamine hippurate 1 gram tablet 0.5 g PO DAILY 03/05/25 03/05/25 History ropinirole 0.25 mg tablet 0.25 mg PO BEDTIME 03/05/25 03/05/25 History sitagliptin phosphate 25 mg tablet 25 mg PO DAILY 03/05/25 03/05/25 History (Januvia) Allergies Allergy/AdvReac Type Severity Reaction Status Date / Time No Known Drug Allergies Allergy Verified 02/07/25 05:18 Review of Systems Review of Systems Narrative: Positive for weakness, neurogenic bladder, cloudy urine. Negative for fevers, chills, sweats, dysuria, hematuria, rashes, chest pain, nausea, vomiting, coughing, abdominal pain. Exam Vital Signs (past 8 hours): Oxygen Delivery Method Room Air Oxygen Flow Rate 0 Objective Labs 03/06/25 08:38 03/06/25 08:38 Labs: Laboratory Results - last 24 hr 03/05/25 03/05/25 17:15 22:07 WBC 10.8 RBC 4.47 L Hgb 12.6 L Hct 37.7 L MCV 84.3 MCH 28.1 MCHC 33.4 RDW 17.5 H Plt Count 337 Neut % (Auto) 74.2 Lymph % (Auto) 13.[address] [place] % (Auto) 8.1 Eos % (Auto) 3.4 Baso % (Auto) 1.0 Neut # (Auto) 8000 H Lymph # (Auto) 1400 [place] # (Auto) 900 Eos # (Auto) 400 Baso # (Auto) 100 Sodium 140 Potassium 4.1 Chloride 104 Carbon Dioxide 26 BUN 61 H Creatinine 2.09 H Estimated GFR 34 L BUN/Creatinine Ratio 29.2 H Glucose 131 H POC Whole Bld Glucose 205 H Calcium 9.2 Total Bilirubin 0.4 AST 28 ALT 20 Alkaline Phosphatase 79 Total Protein 7.1 Albumin 4.1 Globulin 3.0 Albumin/Globulin Ratio 1.4 Lipase 169 Assessment & Plan Time-Based Coding :: [TOTAL MINUTES] spent with patient and on the chart (including review of chart, obtaining history, exam, reviewing outside data, placing orders, documenting exam and treatment plan, and counseling patient) on [DATE].
[2025-03-06 08:00] VITALS: BP 138/87; PULSE 96; RESP 19; TEMP 36.2; O2SAT 100
[2025-03-06 08:50] LABS: Hematocrit 37.5 % (41-53); Hemoglobin 12.3 g/dL (13.5-17.5); Mean Corpuscular HGB Conc 32.8 % (30-36); Mean Corpuscular Hemoglobin 27.7 PG (26-34); Mean Corpuscular Volume 84.5 fL (80-100); Platelet Count 284 X10^3/uL (150-400)
[2025-03-06 09:06] LABS: Alanine Aminotransferase 19 IU/L (<50); Albumin 3.6 g/dL (3.5-5.0); Albumin Globulin Ratio 1.2 (1.0-2.8); Alkaline Phosphatase 76 U/L (38-126); Blood Urea Nitrogen 53 mg/dL (9-20); Calcium 9.0 mg/dL (8.4-10.2); Carbon Dioxide 24 mmol/L (22-32); Chloride 108 mmol/L (98-107); Estimated Glomerular Filt Rate 35 mL/min (>60); Globulin 2.9 g/dL (1.7-4.1); Glucose 141 mg/dL (70-99); HEMOLYSIS < 15 (0-50); Potassium 4.2 mmol/L (3.4-5.1); Sodium 141 mmol/L (137-145); Total Protein 6.5 g/dL (6.3-8.2)
[2025-03-06] MEDS: PANTOPRAZOLE DR 40 MG TABLET PO (09:42)
[2025-03-06] MEDS: FERROUS SULFATE 325 MG TABLET PO (09:42)
[2025-03-06] MEDS: ASPIRIN EC 81 MG TABLET PO (09:42)
[2025-03-06] MEDS: TORSEMIDE 10 MG TABLET PO (09:43)
[2025-03-06] MEDS: POTASSIUM CHLORIDE 10 MEQ TAB 20 MEQ PO (09:43)
[2025-03-06] MEDS: CALCIUM CARBONATE 500 MG TAB PO ×2 (09:44→21:34)
[2025-03-06] MEDS: HEPARIN 5,000 UNIT/ML VIAL 5000 UNIT SUBCUT ×2 (09:46→21:34)
[2025-03-06] MEDS: SODIUM CHLORIDE 0.9% 1,000 ML 100 ML IV (09:47)
[2025-03-06] MEDS: CEFEPIME 2 GM in SODIUM CHLORIDE 0.9% 100 ML IV ×2 (09:47→21:39)
[2025-03-06] MEDS: SODIUM CHLORIDE 0.9% FLUSH 10 ML IV ×2 (09:48→21:34)
[2025-03-06] MEDS: INFLUENZA HD VACCINE 0.5 ML SYRINGE IM (09:50)
[2025-03-06 12:00] VITALS: BP 124/74; PULSE 86; RESP 17; TEMP 36.9; O2SAT 98
--- NOTE | 2025-03-06 16:49 | CM.DANOTE ---
Initial DCP Assessment Note. Review EMR and PT Interview. Met with patient at bedside to discuss discharge needs.PT is alert x 4 sitting up in bed. No acute distress. Lives at [facility]. Nurse at [place] changes herrera catheter every 30 days. Payor:??[facility] PCP: Dr.?Tann Bazzi? [facility]. Summary & Plan:?64 y/o male arrived to ED vis EMS c/o herrera cath not draining. Admitted OBS. Dx. UTI. Outpatient Urine Cx= Pseudomonas. Plan: IVF, IV ABX. Likely SNF for 10 days of IV ABX BID. Discharge Planning/Care Management CM Discharge Assessment Start: 03/05/25 21:03 Freq: Status: Active Protocol: Document 03/06/25 16:42 SM (Rec: 03/06/25 16:48 SM [id number]) Discharge Planning Assessment Assigned Discharge Gaye Vick RN CM Digital Printer Operator Provider Dr. Carloz Bazzi? Insurance [facility] Advance Directives? 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 Independent with ADL No 's Is patient alert and Yes oriented? Needs Assistance Bathing,Eating,Grooming,Meal Prep,Toileting,Managing With Medications,Home Chores / Shopping Comment Chronic Herrera. PMH: MS. Caregiver for No Another DME Already Rented / Wheelchair,Other Owned Comment tilt in space w/c Patient/Family [facility] Facility Preference Comment TBD. Comment IV ABX BID for 10 days. Discharge Plan [facility] Facility Transportation Facility van Arrangement Referrals Initiated [facility] Review Status In Process Please Provide Date 03/06/25 Initial DC Assessment Was Performed Next Review Type Continued Stay Review
[2025-03-06 21:44] VITALS: BP 138/83; PULSE 84; RESP 16; TEMP 36.4; O2SAT 98
[2025-03-07] MEDS: SODIUM CHLORIDE 0.9% 1,000 ML 100 ML IV ×2 (06:20→16:55)
--- NOTE | 2025-03-07 07:35 | P.PN_ITS ---
Subjective Subjective Date Patient Seen: 03/07/25 Interval history: This is a 64-year-old male with a past medical history of multiple sclerosis, chronic indwelling Hightower catheter, GERD, hyperlipidemia and insulin-dependent diabetes who presented from [facility] with a positive urine culture(02/27) for pseudomonas. This was collected in his urine catheter a few days ago. The patient states that he is in his normal state of health and denies any fever, chills, nausea, vomiting, diarrhea, chest pain, abdominal pain, dysuria, shortness of breath or coughing. However the patient had a urine sent because it was cloudy. Otherwise the patient has no dysuria. In the emergency room, the patient was hemodynamically stable with good blood pressure. Lab also shows no signs of sepsis but a creatinine of 2.0. The culture shows Pseudomonas aeruginosa that was resistant to Cipro and Levaquin and sensitive to cefepime. This presents a dilemma of trying to balance antibiotic stewardship/the probable catheter colonization versus the odds of an actual Pseudomonas catheter related UTI. Cloudy urine in a catheter, independent of other signs is no longer considered a definite UTI. 03/07: The creatinine will be rechecked tomorrow. On admission it was 2.08. He has no new complaints today. He appears to have some limited memory issues. The urine in the Hightower bag continues to look normal. The plan is to complete ten days of IV cefepime on 03/16, likely in the SNF setting. Physical Exam: GENERAL: The patient is not in any acute distress. Awake and alert. Oriented x3. HEART: Regular rate and rhythm without murmurs. No lower extremities edema. LUNGS: Clear to auscultation bilaterally. No wheezing, crackles or rhonchi ABDOMEN: Soft, positive bowel sounds, nontender. No organomegaly. SKIN: No rash, no excessive bruising, petechiae, or purpura. No jaundice. NEUROLOGIC: AxO x 3. No tremor. Chronic MS related diffuse musculoskeletal limb weakness. Assessment & Plan UTI with indwelling Hightower catheter and urine positive for Pseudomonas. Continue IV cefepime and plan for 10 days outpatient IV continuation of cefepime due to resistant Pseudomonas (completion date 03/16/2025). Possible catheter/bladder colonization with cloudy urine the only indication the patient can recall for the culture collection. Insulin-dependent diabetes. Monitor glucose with subcu insulin. GERD. home PPI. Hyperlipidemia. home statin. Multiple sclerosis with neurogenic bladder. Patient lives in an assisted living facility due to decreased mobility and care needs. DVT prophylaxis heparin subcu. CODE STATUS full code. Disposition likely long-term care facility in 1-2 days once IV antibiotic is set up as outpatient Exam Vital Signs (past 8 hours): Oxygen Delivery Method Room Air Oxygen Flow Rate 0 Objective Labs 03/06/25 08:38 03/06/25 08:38 Labs: Laboratory Results - last 24 hr 03/06/25 03/06/25 03/06/25 07:57 08:38 11:23 WBC 12.0 H RBC 4.44 L Hgb 12.3 L Hct 37.5 L MCV 84.5 MCH 27.7 MCHC 32.8 RDW 17.2 H Plt Count 284 Sodium 141 Potassium 4.2 Chloride 108 H Carbon Dioxide 24 BUN 53 H Creatinine 2.08 H Estimated GFR 35 L BUN/Creatinine Ratio 25.5 H Glucose 141 H POC Whole Bld Glucose 149 H 196 H Calcium 9.0 Total Bilirubin 0.4 AST 21 ALT 19 Alkaline Phosphatase 76 Total Protein 6.5 Albumin 3.6 Globulin 2.9 Albumin/Globulin Ratio 1.2 03/06/25 03/06/25 16:54 21:25 WBC RBC Hgb Hct MCV MCH MCHC RDW Plt Count Sodium Potassium Chloride Carbon Dioxide BUN Creatinine Estimated GFR BUN/Creatinine Ratio Glucose POC Whole Bld Glucose 170 H 145 H Calcium Total Bilirubin AST ALT Alkaline Phosphatase Total Protein Albumin Globulin Albumin/Globulin Ratio PFSH Medical History Chronic kidney disease, stage IV (severe) History of neurogenic bladder Recurrent UTI (urinary tract infection) Stroke Neurogenic bladder Chronic anemia Chronic kidney disease Hypertension Hyperlipidemia Type 2 diabetes mellitus Multiple sclerosis Surgical History History of circumcision History of knee replacement Hx of hernia repair Family History Grandfather Coronary artery disease Brother Hyperlipidemia Hypertension Social History marital status: unmarried,single number of children: 1 household members: none alcohol intake: former substance use type: does not use Assessment & Plan Time-Based Coding :: [TOTAL MINUTES] spent with patient and on the chart (including review of chart, obtaining history, exam, reviewing outside data, placing orders, documenting exam and treatment plan, and counseling patient) on [DATE].
[2025-03-07] MEDS: POTASSIUM CHLORIDE 10 MEQ TAB 20 MEQ PO (08:59)
[2025-03-07] MEDS: FERROUS SULFATE 325 MG TABLET PO (09:00)
[2025-03-07] MEDS: TORSEMIDE 10 MG TABLET PO (09:00)
[2025-03-07] MEDS: ASPIRIN EC 81 MG TABLET PO (09:00)
[2025-03-07] MEDS: CALCIUM CARBONATE 500 MG TAB PO ×2 (09:01→20:05)
[2025-03-07] MEDS: DOCUSATE 100 MG CAPSULE PO ×2 (09:01→20:05)
[2025-03-07] MEDS: PANTOPRAZOLE DR 40 MG TABLET PO (09:01)
[2025-03-07] MEDS: HEPARIN 5,000 UNIT/ML VIAL 5000 UNIT SUBCUT ×2 (09:02→20:05)
[2025-03-07] MEDS: CEFEPIME 2 GM in SODIUM CHLORIDE 0.9% 100 ML IV ×2 (09:13→20:08)
--- NOTE | 2025-03-07 15:05 | CM.DPNOTE ---
DCP note CHIEF TECHNICIAN X RAY reviewed EMR per provider, 10 days total of IV cefapime needed. CHIEF TECHNICIAN X RAY met with pt in room. confirm lives at [facility], reports preference to return to [facility] but if needed preference to for IV abx. mostly concerned about not having any belongings at from [facility]. report new PCP is Dr. Carloz Bazzi at [facility]. CHIEF TECHNICIAN X RAY sent initial ref to Janet at . per Janet, auth already secured. can accept tomorrow likely at 1300. PASRR needed. provider updated P: dc tomorrow to for 10 days IV abx. will continue to follow closely for DCP Coordination BRYON Rasmussen
[2025-03-07] MEDS: INSULIN LISPRO 100 UNIT/ML 3ML VIAL SUBCUT (17:04)
[2025-03-07] MEDS: INSULIN GLARGINE 100 UNIT/ML 3ML PEN 36 UNIT SUBCUT (17:06)
[2025-03-07] MEDS: ATORVASTATIN 20 MG TABLET PO (20:05)
[2025-03-07 20:48] VITALS: BP 115/55; PULSE 87; RESP 16; TEMP 36.5; O2SAT 96
[2025-03-08] MEDS: SODIUM CHLORIDE 0.9% 1,000 ML 100 ML IV (03:48)
[2025-03-08 06:10] LABS: Blood Urea Nitrogen 44 mg/dL (9-20); Calcium 8.3 mg/dL (8.4-10.2); Carbon Dioxide 21 mmol/L (22-32); Chloride 111 mmol/L (98-107); Estimated Glomerular Filt Rate 34 mL/min (>60); Glucose 153 mg/dL (70-99); HEMOLYSIS < 15 (0-50); Potassium 4.5 mmol/L (3.4-5.1); Sodium 139 mmol/L (137-145)
--- NOTE | 2025-03-08 07:10 | PM.DS.1 ---
History of Present Illness History of Present Illness Date Patient Seen: 03/08/25 Chief complaint: +Pseudomonas, cath not draining, cypress Narrative: This is a 64-year-old male with a past medical history of multiple sclerosis, chronic indwelling Hightower catheter, GERD, hyperlipidemia and insulin-dependent diabetes who presented from [facility] with a positive urine culture(02/27) for pseudomonas. This was collected in his urine catheter a few days ago. The patient states that he is in his normal state of health and denies any fever, chills, nausea, vomiting, diarrhea, chest pain, abdominal pain, dysuria, shortness of breath or coughing. However the patient had a urine sent because it was cloudy. Otherwise the patient has no dysuria. In the emergency room, the patient was hemodynamically stable with good blood pressure. Lab also shows no signs of sepsis but a creatinine of 2.0. The culture shows Pseudomonas aeruginosa that was resistant to Cipro and Levaquin and sensitive to cefepime. This presents a dilemma of trying to balance antibiotic stewardship/the probable catheter colonization versus the odds of an actual Pseudomonas catheter related UTI. Cloudy urine in a catheter, independent of other signs is no longer considered a definite UTI. UTI with indwelling Hightower catheter and urine positive for Pseudomonas. Continue IV cefepime and plan for 10 days outpatient IV continuation of cefepime due to resistant Pseudomonas. Possible catheter/bladder colonization with cloudy urine the only indication the patient can recall for the culture collection. Discharge Providers Provider Date of admission: 03/05/25 20:49 Discharge Date: 03/08/25 Primary care physician: Tolu Solis MD Discharge provider: Ramona Friedman MD Summary Hospital Course Hospital Course: This is a 64-year-old male with a past medical history of multiple sclerosis, chronic indwelling Hightower catheter, GERD, hyperlipidemia and insulin-dependent diabetes who presented from [facility] with a positive urine culture(02/27) for pseudomonas. This was collected in his urine catheter a few days ago. The patient states that he is in his normal state of health and denies any fever, chills, nausea, vomiting, diarrhea, chest pain, abdominal pain, dysuria, shortness of breath or coughing. However the patient had a urine sent because it was cloudy. Otherwise the patient has no dysuria. In the emergency room, the patient was hemodynamically stable with good blood pressure. Lab also shows no signs of sepsis but a creatinine of 2.0. The culture shows Pseudomonas aeruginosa that was resistant to Cipro and Levaquin and sensitive to cefepime. This presents a dilemma of trying to balance antibiotic stewardship/the probable catheter colonization versus the odds of an actual Pseudomonas catheter related UTI. Cloudy urine in a catheter, independent of other signs is no longer considered a definite UTI. 03/07: The creatinine will be rechecked tomorrow. On admission it was 2.08. He has no new complaints today. He appears to have some limited memory issues. The urine in the Hightower bag continues to look normal. The plan is to complete ten days of IV cefepime on 03/16, likely in the SNF setting. 03/08: The creatinine today is stable at 2.09 with a glucose of 153. His multiple sclerosis related slurred speech is quite apparent today. Otherwise there are no new changes. He will be on the cefepime for 7 more days. Status at Discharge Cognitive/behavioral status at discharge: at baseline, oriented Functional status at discharge: wheelchair bound Overall status at discharge: patient is back to baseline Time Spent with Patient Time spent: Greater than 30 minutes Exam Vital Signs (past 8 hours): Oxygen Delivery Method Room Air Oxygen Flow Rate 0 Narrative Exam Narrative: GENERAL: The patient is not in any acute distress. Awake and alert. Oriented x3. Speech is quite slurred today. HEART: Regular rate and rhythm without murmurs. No lower extremities edema. LUNGS: Clear to auscultation bilaterally. No wheezing, crackles or rhonchi ABDOMEN: Soft, positive bowel sounds, nontender. No organomegaly. SKIN: No rash, no excessive bruising, petechiae, or purpura. No jaundice. NEUROLOGIC: AxO x 3. No tremor. Chronic MS related diffuse musculoskeletal limb weakness. Objective Labs 03/06/25 08:38 03/08/25 05:54 Labs: Laboratory Results - last 24 hr 03/07/25 03/07/25 03/07/25 09:16 11:57 16:40 Sodium Potassium Chloride Carbon Dioxide BUN Creatinine Estimated GFR BUN/Creatinine Ratio Glucose POC Whole Bld Glucose 101 H 96 172 H Calcium 03/07/25 03/08/25 19:53 05:54 Sodium 139 Potassium 4.5 Chloride 111 H Carbon Dioxide 21 L BUN 44 H Creatinine 2.09 H Estimated GFR 34 L BUN/Creatinine Ratio 21.1 Glucose 153 H POC Whole Bld Glucose 152 H Calcium 8.3 L PFSH Medical History Chronic kidney disease, stage IV (severe) History of neurogenic bladder Recurrent UTI (urinary tract infection) Stroke Neurogenic bladder Chronic anemia Chronic kidney disease Hypertension Hyperlipidemia Type 2 diabetes mellitus Multiple sclerosis Surgical History History of circumcision History of knee replacement Hx of hernia repair Family History Grandfather Coronary artery disease Brother Hyperlipidemia Hypertension Social History marital status: unmarried,single number of children: 1 household members: none alcohol intake: former substance use type: does not use Discharge Plan Discharge Plan Patient Disposition: SNF Transfer to: [facility] Under care of provider: Facility Tunnel Kiln Firer/Staff Physician/AIRCRAFT MAINTENANCE DIRECTOR Discharge orders & Medications Prescriptions: New cefepime 2 gram Recon Soln 2 gm IV Q12H Qty: 14 0RF hydrocodone-acetaminophen 5-325 mg Tablet 1 tab PO Q4HR PRN (Reason: Pain (Scale Score 4-6)) Qty: 30 0RF Continued torsemide 20 mg tablet 10 mg PO QAM Rx Instructions: hold if spb <110 or HR <60 nystatin 100,000 unit/gram ointment 1 applic topical BID pantoprazole 40 mg Tablet,Delayed Release (Dr/Ec) 40 mg PO QAM bismuth subsalicylate [Pepto-Bismol] 262 mg/15 mL Suspension 262 mg PO Q6HR PRN (Reason: Loose Stool) docusate sodium 100 mg Capsule 100 mg PO BID aspirin 81 mg Tablet 81 mg PO QAM ferrous sulfate 325 mg (65 mg iron) Capsule, Extended Release 325 mg PO QAM atorvastatin 20 mg tablet 20 mg PO BEDTIME insulin glargine [Lantus Solostar U-100 Insulin] 100 unit/mL (3 mL) insulin pen 36 unit SUBCUT QPM Patient Comments: 5 units given at bedtime for BS 76 on 12/18/23 loperamide 2 mg capsule 2 mg PO BID PRN (Reason: Diarrhea) polyethylene glycol 3350 17 gram powder in packet 17 g PO QAM ondansetron HCl 4 mg tablet 4 mg PO Q8HR PRN (Reason: Nausea) potassium chloride 10 mEq tablet extended release 20 meq PO QAM calcium carbonate [Calcium Antacid] 200 mg calcium (500 mg) tablet,chewable 400 mg PO TID Rx Instructions: with meals for CKD cholecalciferol (vitamin D3) [Vitamin D3] 50 mcg (2,000 unit) tablet 50 mcg PO DAILY methenamine hippurate 1 gram tablet 0.5 g PO DAILY Januvia 25 mg tablet 25 mg PO DAILY ropinirole 0.25 mg tablet 0.25 mg PO BEDTIME Discontinued hydrocodone-acetaminophen 5-325 mg tablet 1 tab PO Q4HR PRN (Reason: Pain (Scale Score 4-6)) Follow up/Referrals: Tolu Solis MD [Primary Care Provider, Internal Medicine] Diet/Activity/Treatments Diet: Regular Liquid consistency: Normal/Thin Food texture: Regular [facility] Rehab type: Physical therapy and Occupational therapy Visit Report/Discharge Packet Stand Alone Forms: Patient Portal/API Discharge Data Primary Care Provider: Tolu Solis
[2025-03-08] MEDS: INSULIN LISPRO 100 UNIT/ML 3ML VIAL SUBCUT ×2 (08:59→12:40)
[2025-03-08] MEDS: CALCIUM CARBONATE 500 MG TAB PO (09:00)
[2025-03-08] MEDS: POTASSIUM CHLORIDE 10 MEQ TAB 20 MEQ PO (09:00)
[2025-03-08] MEDS: ASPIRIN EC 81 MG TABLET PO (09:01)
[2025-03-08] MEDS: DOCUSATE 100 MG CAPSULE PO (09:01)
[2025-03-08] MEDS: HEPARIN 5,000 UNIT/ML VIAL 5000 UNIT SUBCUT (09:01)
[2025-03-08] MEDS: FERROUS SULFATE 325 MG TABLET PO (09:01)
[2025-03-08] MEDS: PANTOPRAZOLE DR 40 MG TABLET PO (09:01)
[2025-03-08] MEDS: TORSEMIDE 10 MG TABLET PO (09:01)
[2025-03-08] MEDS: CEFEPIME 2 GM in SODIUM CHLORIDE 0.9% 100 ML IV (09:23)
[2025-03-08] MEDS: SODIUM CHLORIDE 0.9% FLUSH 10 ML IV (09:23)
[2025-03-08 10:42] VITALS: BP 123/56; PULSE 85; RESP 14; TEMP 36.6; O2SAT 97
--- NOTE | 2025-03-08 13:34 | CM.DPC ---
finalized med list for d/c to [facility] today and signed the med list and script and SW faxed to [facility] along with d/c summary (PAS[facility] previously sent earlier today). Met bedside with pt briefly as he was about to order dinner and updated him on d/c to [facility] today before dinner time and pt agreeable. Updated RN and placed med list and script in discharge manila folder to go to SNF. BRYON Jones
--- NOTE | 2025-03-08 14:01 | PC.NURSE ---
Pt discharged to [facility] for IV antibiotics, IVs not removed for discharge. All belongings accounted for and pt going by wheelchair.
--- NOTE | 2025-03-08 14:16 | CM.DPNOTE ---
DCP Note FLAVORINGS COMPOUNDER reviewed EMR per provider cleared to dc today to for 14 total days of IV abx. per Janet, confirm can accept today. transport between [id number]. FLAVORINGS COMPOUNDER emailed [facility]. med list/dc summary sent by Kelsey later in day. FLAVORINGS COMPOUNDER updated TEACHING PASTOR/RN. gave RN report number. P: Dc today to . no further CM needs at this time. will continue to follow as needed for DCP coordination BRYON Rasmussen
== END 2025-03-08 14:02 | DRG 699 ==
LOC: ED 20:47 → AC 21:59
PROVIDERS: Family Medicine; Admitting Provider Internal Medicine; Emergency Provider Emergency Medicine; PCP Internal Medicine; Visit Provider Internal Medicine
DX: T83.511A Infection and inflammatory reaction due to indwelling urethral catheter, initial encounter (principal); Z16.39 Resistance to other specified antimicrobial drug; G35.D Multiple sclerosis, unspecified; E11.9 Type 2 diabetes mellitus without complications; B96.5 Pseudomonas (aeruginosa) (mallei) (pseudomallei) as the cause of diseases classified elsewhere; N39.0 Urinary tract infection, site not specified; K21.9 Gastro-esophageal reflux disease without esophagitis; E78.5 Hyperlipidemia, unspecified; N31.9 Neuromuscular dysfunction of bladder, unspecified; I10 Essential (primary) hypertension; D64.9 Anemia, unspecified; Y73.1 Therapeutic (nonsurgical) and rehabilitative gastroenterology and urology devices associated with adverse incidents; Z79.4 Long term (current) use of insulin; Z79.84 Long term (current) use of oral hypoglycemic drugs
CPT/HCPCS: 36415; 80048; 80053; 82962; 83690; 85025; 85027; 87040; 90471; 90662; 96365; 99284; J0692; J1644; J1815; J7030; J7050

== ENCOUNTER → 2025-03-09 09:56 | Outpatient (CLI) | payer MEDICARE, MEDICAID, SELFPAY ==
[2025-03-05 21:03] VITALS: BMI 34.0
== END ==
LOC: WC 10:02
PROVIDERS: PCP Internal Medicine; Referring Provider Internal Medicine; Visit Provider Surgery
DX: L89.323 Pressure ulcer of left buttock, stage 3 (principal); L89.313 Pressure ulcer of right buttock, stage 3; L24.A2 Irritant contact dermatitis due to fecal, urinary or dual incontinence; Z99.3 Dependence on wheelchair
CPT/HCPCS: 99213

== ENCOUNTER 2025-03-12 08:24 | Emergency (ER) | payer MEDICARE, MEDICAID, SELFPAY ==
[2025-03-05 21:03] VITALS: BMI 34.0
[2025-03-12] VITALS (11 sets, daily range): BP systolic 126–138; BP diastolic 60–63; PULSE 77–90; RESP 18; TEMP 36.6; O2SAT 96–99; BMI 34.1
[2025-03-12 09:43] LABS: Add Manual Diff / Slide Review NO; Hematocrit 40.1 % (41-53); Hemoglobin 13.5 g/dL (13.5-17.5); Lymphocytes Absolute Auto 1400 /uL (1100-4500); Mean Corpuscular HGB Conc 33.6 % (30-36); Mean Corpuscular Hemoglobin 28.8 PG (26-34); Mean Corpuscular Volume 85.7 fL (80-100); Platelet Count 203 X10^3/uL (150-400)
[2025-03-12 09:47] LABS: Alanine Aminotransferase 18 IU/L (<50); Albumin 4.1 g/dL (3.5-5.0); Albumin Globulin Ratio 1.4 (1.0-2.8); Alkaline Phosphatase 71 U/L (38-126); Blood Urea Nitrogen 45 mg/dL (9-20); Calcium 9.5 mg/dL (8.4-10.2); Carbon Dioxide 24 mmol/L (22-32); Chloride 106 mmol/L (98-107); Estimated Glomerular Filt Rate 28 mL/min (>60); Globulin 3.0 g/dL (1.7-4.1); Glucose 90 mg/dL (70-99); HEMOLYSIS 32 (0-50); Potassium 4.0 mmol/L (3.4-5.1); Sodium 140 mmol/L (137-145); Total Protein 7.1 g/dL (6.3-8.2)
--- NOTE | 2025-03-12 10:41 | DI.RAD.S_ITS ---
PROCEDURE: XR CHEST 1V INDICATIONS: line verification TECHNIQUE: One view of the chest was acquired. COMPARISON: [facility], CR, XR CHEST FOR PICC 1V, 12/19/2024, 17:26. [facility], CR, XR CHEST 1V, 12/19/2024, 15:18. FINDINGS: Surgical changes and devices: No line visualized. Lungs and pleura: Lungs are clear. No pleural effusions or pneumothorax. Mediastinum: Mediastinal contours appear normal. Heart size is normal. Bones and chest wall: No suspicious bony lesions. Overlying soft tissues appear unremarkable. IMPRESSION: No line visualized. Dictated by: Lazarus Ledezma M.D. on 03/12/2025 at 11:11 Approved by: Lazarus Ledezma M.D. on 03/12/2025 at 11:12
--- NOTE | 2025-03-12 12:33 | PC.NURSE ---
Spoke with Kandy INIGUEZ at [facility], report given, will set up transportation
--- NOTE | 2025-03-12 20:32 | ED.EXTPRO ---
HPI - Extremity Problem General Chief complaint: Extremity Problem,Nontraumatic Stated complaint: plugged picc line Time Seen by Provider: 03/12/25 08:34 Source: patient Mode of arrival: EMS History of Present Illness HPI Narrative: This 64 yo male presents with the complaint of a blocked mid-line right arm that was being used for antibiotics for a UTI at his [facility]. the patient thought the line was leaking as well. No redstreak up arm. Related Data Home Medications ?Medication ?Instructions ?Recorded ?Confirmed aspirin 81 mg tablet 81 mg PO QAM 12/30/20 03/05/25 bismuth subsalicylate 262 mg/15 mL 262 mg PO Q6HR PRN Loose Stool 12/30/20 03/05/25 oral suspension (Pepto-Bismol) docusate sodium 100 mg capsule 100 mg PO BID 12/30/20 03/05/25 ferrous sulfate 325 mg (65 mg 325 mg PO QAM 12/30/20 03/05/25 iron) capsule,extended release pantoprazole 40 mg tablet,delayed 40 mg PO QAM 12/30/20 03/05/25 release atorvastatin 20 mg tablet 20 mg PO BEDTIME 04/12/21 03/05/25 insulin glargine 100 unit/mL (3 36 unit SUBCUT QPM 04/12/21 03/05/25 mL) subcutaneous pen (Lantus Solostar U-100 Insulin) nystatin 100,000 unit/gram topical 1 applic topical BID 04/12/21 03/05/25 ointment torsemide 20 mg tablet 10 mg PO QAM 04/12/21 03/05/25 loperamide 2 mg capsule 2 mg PO BID PRN Diarrhea 05/10/21 03/05/25 polyethylene glycol 3350 17 gram 17 g PO QAM 05/10/21 03/05/25 oral powder packet calcium carbonate (Calcium Antacid) 400 mg PO TID 11/13/22 03/07/25 potassium chloride 10 mEq 20 meq PO QAM 11/13/22 03/05/25 tablet,extended release ondansetron HCl 4 mg tablet 4 mg PO Q8HR PRN Nausea 12/29/22 03/05/25 cholecalciferol (vitamin D3) 50 50 mcg PO DAILY 03/05/25 03/07/25 mcg (2,000 unit) tablet (Vitamin D3) methenamine hippurate 1 gram tablet 0.5 g PO DAILY 03/05/25 03/05/25 ropinirole 0.25 mg tablet 0.25 mg PO BEDTIME 03/05/25 03/05/25 sitagliptin phosphate 25 mg tablet 25 mg PO DAILY 03/05/25 03/05/25 (Januvia) Previous Rx's ?Medication ?Instructions ?Recorded cefepime 2 gram solution for 2 gm IV Q12H #14 ea 03/08/25 injection hydrocodone 5 mg-acetaminophen 325 1 tab PO Q4HR PRN Pain (Scale 03/08/25 mg tablet Score 4-6) #30 tabs Allergies Allergy/AdvReac Type Severity Reaction Status Date / Time No Known Drug Allergies Allergy Verified 03/12/25 08:32 Review of Systems Review of Systems ROS Unobtainable: All systems reviewed & are unremarkable except as noted in HPI and below Constitutional Comments: Malaise associated with increased warmtha dn some leakage from mid-line right upper arm. Line being used for antibiotics Cardiovascular Cardiovascular: Reports system reviewed and no additional complaints, except as documented Respiratory Respiratory: Reports system reviewed and no additional complaints, except as documented Musculoskeletal Comments: visible line right volar upper arm, with slight warmth but no erythema about site. No red streaks, Patient History Medical History Chronic kidney disease, stage IV (severe) History of neurogenic bladder Recurrent UTI (urinary tract infection) Stroke Neurogenic bladder Chronic anemia Chronic kidney disease Hypertension Hyperlipidemia Type 2 diabetes mellitus Multiple sclerosis Surgical History History of circumcision History of knee replacement Hx of hernia repair Family History Grandfather Coronary artery disease Brother Hyperlipidemia Hypertension Social History marital status: unmarried,single number of children: 1 household members: none alcohol intake: former substance use type: does not use tobacco type: cigarettes alcohol intake frequency: holidays/special occasions only Exam Initial Vital Signs Initial Vital Signs: Vital Signs Temperature 97.9 F 03/12/25 08:32 Pulse Rate 83 03/12/25 08:32 Respiratory Rate 18 03/12/25 08:32 Blood Pressure 126/61 03/12/25 08:32 Pulse Oximetry 99 03/12/25 08:32 Oxygen Delivery Method Room Air 03/12/25 08:32 Const General: cooperative and other (no acute distress) Resp Effort & Inspection: normal respiratory effort Cardio Rate: regular rate Extrem Other: Right volar mid upper arm reveals Iv line. No erythema , Slight warmth about line . No red streak. No severe pain, NROM. Course Orders Ordered: Discontinued Medications Alteplase, Recombinant (Alteplase 2 Mg/2 Ml Vial) 2 mg IV NOW ONE Stop: 03/12/25 10:44 Last Admin: 03/12/25 12:30 Dose: Not Given Documented By: MADELIN Heparin Sodium (Porcine) (Heparin Flush (Cl/Picc/Mid-Line) 50 Unit/5 Ml Syringe) 50 unit IV PRN PRN PRN Reason: Flush Last Admin: 03/12/25 13:59 Dose: 50 unit Documented By: MADELIN Sodium Chloride (Sodium Chloride 0.9% Flush) 10 ml IV PRN PRN PRN Reason: Flush Vital Signs Vital signs: Vital Signs - 8 hr 03/12/25 12:50 03/12/25 12:50 03/12/25 13:00 Pulse Rate 83 82 Blood Pressure 131/60 Pulse Oximetry 99 99 03/12/25 13:00 03/12/25 14:00 03/12/25 14:00 Pulse Rate 90 Blood Pressure 138/63 129/63 Pulse Oximetry 98 MDM - Extremity (Nontraumatic) Lab Data 03/12/25 09:24 03/12/25 09:24 Labs: Lab Results 03/12/25 Range/Units 09:24 WBC 8.3 (4.5-11.0) X10^3/uL RBC 4.68 (4.5-5.9) X10^6/uL Hgb 13.5 (13.5-17.5) g/dL Hct 40.1 L (41-53) % MCV 85.7 (80-100) fL MCH 28.8 (26-34) PG MCHC 33.6 (30-36) % RDW 17.4 H (11.6-14.8) % Plt Count 203 (150-400) X10^3/uL Neut % (Auto) 63.5 (50-75) % Lymph % (Auto) 17.0 L (25-40) % Maverick % (Auto) 7.7 (3-14) % Eos % (Auto) 10.8 H (2-4) % Baso % (Auto) 1.0 (0-2) % Neut # (Auto) 5300 (1168-1564) /uL Lymph # (Auto) 1400 (9317-5955) /uL Maverick # (Auto) 600 (0-900) /uL Eos # (Auto) 900 H (0-450) /uL Baso # (Auto) 100 (0-100) /uL Sodium 140 (137-145) mmol/L Potassium 4.0 (3.4-5.1) mmol/L Chloride 106 (98-107) mmol/L Carbon Dioxide 24 (22-32) mmol/L BUN 45 H (9-20) mg/dL Creatinine 2.52 H (0.66-1.25) mg/dL Estimated GFR 28 L (>60) mL/min BUN/Creatinine Ratio 17.9 (6-22) Glucose 90 (70-99) mg/dL Calcium 9.5 (8.4-10.2) mg/dL Total Bilirubin 0.5 (0.2-1.3) mg/dL AST 32 (17-59) IU/L ALT 18 (<50) IU/L Alkaline Phosphatase 71 (38-126) U/L Total Protein 7.1 (6.3-8.2) g/dL Albumin 4.1 (3.5-5.0) g/dL Globulin 3.0 (1.7-4.1) g/dL Albumin/Globulin Ratio 1.4 (1.0-2.8) MDM Narrative Medical decision making narrative: This patient presents with a possible clogged mid-IV line right arm [facility]Lab revealed normal WBC, predominance of eosinophils. . Seen by PICC team and line treated with alteplase. Was cleared and drained adequately . Ptent was felt ready to return back to [facility] and [facility] called. Discharge Plan Departure Patient Disposition: [facility] Clinical Impression: Problem with vascular access Activity Restrictions/Additional Instructions: nO RESTRICTIONS. kEEP FROM YANKING ON iv LINE Prescriptions: No Action torsemide 20 mg tablet 10 mg PO QAM Rx Instructions: hold if spb <110 or HR <60 nystatin 100,000 unit/gram ointment 1 applic topical BID pantoprazole 40 mg Tablet,Delayed Release (Dr/Ec) 40 mg PO QAM bismuth subsalicylate [Pepto-Bismol] 262 mg/15 mL Suspension 262 mg PO Q6HR PRN (Reason: Loose Stool) docusate sodium 100 mg Capsule 100 mg PO BID aspirin 81 mg Tablet 81 mg PO QAM ferrous sulfate 325 mg (65 mg iron) Capsule, Extended Release 325 mg PO QAM atorvastatin 20 mg tablet 20 mg PO BEDTIME insulin glargine [Lantus Solostar U-100 Insulin] 100 unit/mL (3 mL) insulin pen 36 unit SUBCUT QPM Patient Comments: 5 units given at bedtime for BS 76 on 04/29/23 loperamide 2 mg capsule 2 mg PO BID PRN (Reason: Diarrhea) polyethylene glycol 3350 17 gram powder in packet 17 g PO QAM ondansetron HCl 4 mg tablet 4 mg PO Q8HR PRN (Reason: Nausea) potassium chloride 10 mEq tablet extended release 20 meq PO QAM calcium carbonate [Calcium Antacid] 200 mg calcium (500 mg) tablet,chewable 400 mg PO TID Rx Instructions: with meals for CKD cholecalciferol (vitamin D3) [Vitamin D3] 50 mcg (2,000 unit) tablet 50 mcg PO DAILY methenamine hippurate 1 gram tablet 0.5 g PO DAILY Januvia 25 mg tablet 25 mg PO DAILY ropinirole 0.25 mg tablet 0.25 mg PO BEDTIME cefepime 2 gram Recon Soln 2 gm IV Q12H Qty: 14 0RF hydrocodone-acetaminophen 5-325 mg Tablet 1 tab PO Q4HR PRN (Reason: Pain (Scale Score 4-6)) Qty: 30 0RF Medication counseling provided by Pharmacist: No SNF Discharge Plan Transfer to: [facility] Transportation: Cab[facility] I certify the postop hospital [facility] care is medically necessary on a continuing basis for any conditions for which he/ she received care during this hospitalization.: Yes The receiving facility has agreed to accept transfer and provide medical treatment.: Yes
== END 2025-03-12 14:30 ==
PROVIDERS: Emergency Provider Emergency Medicine; PCP Internal Medicine
DX: T82.898A Other specified complication of vascular prosthetic devices, implants and grafts, initial encounter (principal)
CPT/HCPCS: 71045; 80053; 85025; 99283; 99284; J1642

== ENCOUNTER → 2025-03-31 15:47 | Outpatient (CLI) | payer MEDICARE, MEDICAID, SELFPAY ==
[2025-03-05 21:03] VITALS: BMI 34.0
== END ==
LOC: WC 15:48
PROVIDERS: PCP Internal Medicine; Referring Provider Internal Medicine; Visit Provider Surgery
DX: E11.628 Type 2 diabetes mellitus with other skin complications (principal); L89.323 Pressure ulcer of left buttock, stage 3; L24.A2 Irritant contact dermatitis due to fecal, urinary or dual incontinence; G35.D Multiple sclerosis, unspecified
CPT/HCPCS: 99213

== ENCOUNTER → 2025-04-13 16:31 | Outpatient (ROUT) | payer MEDICARE, MEDICAID, SELFPAY ==
[2025-03-05 21:03] VITALS: BMI 34.0
== END ==
PROVIDERS: PCP Internal Medicine; Visit Provider Hospitalist
DX: R36.9 Urethral discharge, unspecified (principal)
CPT/HCPCS: 87070; 87147; 87186; 87205

== ENCOUNTER 2025-04-19 19:15 | Emergency (ER) | payer MEDICARE, MEDICAID, SELFPAY ==
[2025-03-05 21:03] VITALS: BMI 34.0
[2025-04-19] VITALS (12 sets, daily range): BP systolic 112–147; BP diastolic 60–86; PULSE 75–87; RESP 16–36; TEMP 36.7; O2SAT 94–99; BMI 37.5
[2025-04-19 21:03] LABS: INR 1.0 (0.9-1.3); Prothrombin Time 11.6 SECONDS (9.4-12.5)
[2025-04-19 21:05] LABS: Add Manual Diff / Slide Review NO; Hematocrit 41.0 % (41-53); Hemoglobin 13.8 g/dL (13.5-17.5); Lymphocytes Absolute Auto 1500 /uL (1100-4500); Mean Corpuscular HGB Conc 33.6 % (30-36); Mean Corpuscular Hemoglobin 28.7 PG (26-34); Mean Corpuscular Volume 85.3 fL (80-100); PTT Partial Thromboplastin Tim 34 SECONDS (25.1-36.5); Platelet Count 260 X10^3/uL (150-400)
[2025-04-19 21:09] LABS: Alanine Aminotransferase 15 IU/L (<50); Albumin 4.0 g/dL (3.5-5.0); Albumin Globulin Ratio 1.3 (1.0-2.8); Alkaline Phosphatase 79 U/L (38-126); Blood Urea Nitrogen 56 mg/dL (9-20); Calcium 8.8 mg/dL (8.4-10.2); Carbon Dioxide 24 mmol/L (22-32); Chloride 106 mmol/L (98-107); Estimated Glomerular Filt Rate 29 mL/min (>60); Globulin 3.0 g/dL (1.7-4.1); Glucose 202 mg/dL (70-99); HEMOLYSIS 28 (0-50); Lipase 158 U/L (23-300); Potassium 4.0 mmol/L (3.4-5.1); Sodium 141 mmol/L (137-145); Total Protein 7.0 g/dL (6.3-8.2)
[2025-04-19 21:10] LABS: Lactate (Lactic Acid) 1.4 mmol/L (0.7-2.1)
[2025-04-19 21:26] LABS: Procalcitonin 0.099 ng/mL (<0.5)
--- NOTE | 2025-04-19 21:30 | PC.NURSE ---
pt moved to 11 from [place] for evaluation, pt was sent from [place] for IV antibiotics for possible MRSA infection to his penis, pt has a white thick drainage noted coming from his penis around the indwelling catheter penis is not red or swollen, cloudy yellow urine noted in bag. culture of drainage obtained, and urine specimen obtained from catheter port
--- NOTE | 2025-04-19 23:18 | ED.SKABFB ---
HPI - Skin/Abscess/Foreign Bdy General Chief complaint: Skin/Abscess/Foreign Body Stated complaint: groin mrsa Time Seen by Provider: 04/19/25 21:13 Source: EMS Mode of arrival: EMS Limitations: physical limitation History of Present Illness HPI narrative: [age] year old male who comes in from an assisted living facility and is a poor historian and was told that he may have MRSA in his groin area. Currently he does not complain of any symptoms. Micro genital sample from April 13 2025 showed MRSA as well as Pseudomonas aeruginosa. Related Data Home Medications ?Medication ?Instructions ?Recorded ?Confirmed aspirin 81 mg tablet 81 mg PO QAM 12/30/20 03/05/25 bismuth subsalicylate 262 mg/15 mL 262 mg PO Q6HR PRN Loose Stool 12/30/20 03/05/25 oral suspension (Pepto-Bismol) docusate sodium 100 mg capsule 100 mg PO BID 12/30/20 03/05/25 ferrous sulfate 325 mg (65 mg 325 mg PO QAM 12/30/20 03/05/25 iron) capsule,extended release pantoprazole 40 mg tablet,delayed 40 mg PO QAM 12/30/20 03/05/25 release atorvastatin 20 mg tablet 20 mg PO BEDTIME 04/12/21 03/05/25 insulin glargine 100 unit/mL (3 36 unit SUBCUT QPM 04/12/21 03/05/25 mL) subcutaneous pen (Lantus Solostar U-100 Insulin) nystatin 100,000 unit/gram topical 1 applic topical BID 04/12/21 03/05/25 ointment torsemide 20 mg tablet 10 mg PO QAM 04/12/21 03/05/25 loperamide 2 mg capsule 2 mg PO BID PRN Diarrhea 05/10/21 03/05/25 polyethylene glycol 3350 17 gram 17 g PO QAM 05/10/21 03/05/25 oral powder packet calcium carbonate (Calcium Antacid) 400 mg PO TID 11/13/22 03/07/25 potassium chloride 10 mEq 20 meq PO QAM 11/13/22 03/05/25 tablet,extended release ondansetron HCl 4 mg tablet 4 mg PO Q8HR PRN Nausea 12/29/22 03/05/25 cholecalciferol (vitamin D3) 50 50 mcg PO DAILY 03/05/25 03/07/25 mcg (2,000 unit) tablet (Vitamin D3) methenamine hippurate 1 gram tablet 0.5 g PO DAILY 03/05/25 03/05/25 ropinirole 0.25 mg tablet 0.25 mg PO BEDTIME 03/05/25 03/05/25 sitagliptin phosphate 25 mg tablet 25 mg PO DAILY 03/05/25 03/05/25 (Michaeluvia) Previous Rx's ?Medication ?Instructions ?Recorded cefepime 2 gram solution for 2 gm IV Q12H #14 ea 03/08/25 injection hydrocodone 5 mg-acetaminophen 325 1 tab PO Q4HR PRN Pain (Scale 03/08/25 mg tablet Score 4-6) #30 tabs sulfamethoxazole 800 1 tab PO BID #20 tabs 04/20/25 mg-trimethoprim 160 mg tablet (Bactrim DS) Allergies Allergy/AdvReac Type Severity Reaction Status Date / Time No Known Drug Allergies Allergy Verified 03/12/25 08:32 Review of Systems Review of Systems ROS Unobtainable: All systems reviewed & are unremarkable except as noted in HPI and below Patient History Medical History Chronic kidney disease, stage IV (severe) History of neurogenic bladder Recurrent UTI (urinary tract infection) Stroke Neurogenic bladder Chronic anemia Chronic kidney disease Hypertension Hyperlipidemia Type 2 diabetes mellitus Multiple sclerosis Surgical History History of circumcision History of knee replacement Hx of hernia repair Family History Grandfather Coronary artery disease Brother Hyperlipidemia Hypertension Social History marital status: unmarried,single number of children: 1 household members: none alcohol intake: former substance use type: does not use tobacco type: cigarettes alcohol intake frequency: holidays/special occasions only Exam Narrative Exam Narrative: General: Patient appears to be in no acute distress, acting appropriately Head: normocephalic, atraumatic, HEENT: Pupils equal round reactive, eyes tracking well, neck supple, no JVD Heart: regular rate and rhythm, no murmurs, rubs, or gallops heard Lungs: clear to auscultation, no adventitious sounds Abdomen: soft , nontender, nondistended, positive bowel sounds Neurological: no focal neurological signs, moving all extremities well, alert and oriented x3, Psych: good judgment ,good insight, mood is normal. groin area: has some pus around penile opening Initial Vital Signs Initial Vital Signs: Vital Signs Pulse Rate 76 04/19/25 19:40 Respiratory Rate 16 04/19/25 19:40 Blood Pressure 112/60 04/19/25 19:40 Pulse Oximetry 99 04/19/25 19:40 Oxygen Delivery Method Room Air 04/19/25 19:40 Course Orders Ordered: ED Orders 04/19/25 20:33 Complete Blood Count AUTO DIFF Stat Comprehensive Metabolic Panel Stat Lactate (Lactic Acid) Stat Lipase Stat PTT Partial Thromboplastin Pasha Stat Procalcitonin Stat Prothrombin Time INR Stat 04/19/25 21:42 Blood Culture Stat 04/20/25 00:02 Genital Culture Stat 04/20/25 00:03 Urinalysis and Microscopic Stat Discontinued Medications Vancomycin HCl 2,000 mg/ (Sodium Chloride) 100 mls @ 100 mls/hr IV NOW ONE Stop: 04/19/25 23:23 Last Admin: 04/20/25 00:27 Dose: Not Given Documented By: CORRIE Cefepime HCl 2 gm/ Sodium (Chloride) 100 mls @ 200 mls/hr IV NOW ONE Stop: 04/20/25 00:22 Last Infusion: 04/20/25 01:21 Dose: Infused Documented By: Admin: 04/20/25 00:44 Dose: 200 mls/hr Documented By: KO Vital Signs Vital signs: Vital Signs - 8 hr 04/19/25 19:40 04/19/25 19:46 04/19/25 19:46 Temperature 98.0 F Pulse Rate 76 76 Respiratory Rate 16 18 Blood Pressure 112/60 Pulse Oximetry 99 98 Oxygen Delivery Method Room Air 04/19/25 20:00 04/19/25 20:00 04/19/25 20:30 Temperature Pulse Rate 79 77 Respiratory Rate 23 20 Blood Pressure 123/72 Pulse Oximetry 99 99 Oxygen Delivery Method 04/19/25 21:00 04/19/25 21:30 04/19/25 22:03 Temperature Pulse Rate 75 87 82 Respiratory Rate 16 26 H Blood Pressure Pulse Oximetry 95 97 Oxygen Delivery Method 04/19/25 22:04 04/19/25 22:04 04/19/25 22:30 Temperature Pulse Rate 83 76 Respiratory Rate 36 H 17 Blood Pressure 147/61 H Pulse Oximetry 98 95 Oxygen Delivery Method 04/19/25 22:30 04/19/25 23:00 04/19/25 23:00 Temperature Pulse Rate 76 Respiratory Rate 25 H Blood Pressure 134/61 137/64 Pulse Oximetry 94 Oxygen Delivery Method 04/19/25 23:30 04/19/25 23:32 04/19/25 23:32 Temperature Pulse Rate 81 84 Respiratory Rate 22 22 Blood Pressure 140/86 Pulse Oximetry 97 Oxygen Delivery Method 04/20/25 00:00 04/20/25 00:00 04/20/25 00:30 Temperature Pulse Rate 81 81 Respiratory Rate 18 20 Blood Pressure 136/63 Pulse Oximetry 95 93 Oxygen Delivery Method Room Air 04/20/25 00:30 04/20/25 01:00 04/20/25 01:05 Temperature Pulse Rate 84 84 Respiratory Rate 18 18 Blood Pressure 134/61 Pulse Oximetry 95 93 Oxygen Delivery Method Room Air 04/20/25 01:10 04/20/25 01:15 04/20/25 01:20 Temperature Pulse Rate 108 H 86 87 Respiratory Rate 17 21 20 Blood Pressure 137/63 Pulse Oximetry 94 93 96 Oxygen Delivery Method Room Air MDM - Skin/Abscess/Foreign Bdy Lab Data 04/19/25 20:33 04/19/25 20:33 Labs: Lab Results 04/19/25 04/19/25 Range/Units 01:34 20:33 WBC 9.4 (4.5-11.0) X10^3/uL RBC 4.81 (4.5-5.9) X10^6/uL Hgb 13.8 (13.5-17.5) g/dL Hct 41.0 (41-53) % MCV 85.3 (80-100) fL MCH 28.7 (26-34) PG MCHC 33.6 (30-36) % RDW 16.0 H (11.6-14.8) % Plt Count 260 (150-400) X10^3/uL Neut % (Auto) 68.5 (50-75) % Lymph % (Auto) 16.2 L (25-40) % Stanton % (Auto) 8.3 (3-14) % Eos % (Auto) 6.1 H (2-4) % Baso % (Auto) 0.9 (0-2) % Neut # (Auto) 6400 (7727-9588) /uL Lymph # (Auto) 1500 (8296-6573) /uL Stanton # (Auto) 800 (0-900) /uL Eos # (Auto) 600 H (0-450) /uL Baso # (Auto) 100 (0-100) /uL PT 11.6 (9.4-12.5) SECONDS INR 1.0 (0.9-1.3) APTT 34 (25.1-36.5) SECONDS Sodium 141 (137-145) mmol/L Potassium 4.0 (3.4-5.1) mmol/L Chloride 106 (98-107) mmol/L Carbon Dioxide 24 (22-32) mmol/L BUN 56 H (9-20) mg/dL Creatinine 2.41 H (0.66-1.25) mg/dL Estimated GFR 29 L (>60) mL/min BUN/Creatinine Ratio 23.2 H (6-22) Glucose 202 H (70-99) mg/dL Lactate 1.4 (0.7-2.1) mmol/L Calcium 8.8 (8.4-10.2) mg/dL Total Bilirubin 0.3 (0.2-1.3) mg/dL AST 19 (17-59) IU/L ALT 15 (<50) IU/L Alkaline Phosphatase 79 (38-126) U/L Total Protein 7.0 (6.3-8.2) g/dL Albumin 4.0 (3.5-5.0) g/dL Globulin 3.0 (1.7-4.1) g/dL Albumin/Globulin Ratio 1.3 (1.0-2.8) Lipase 158 (23-300) U/L Procalcitonin 0.099 (<0.5) ng/mL Urine Color Yellow Urine Appearance Turbid Urine pH >= 9.0 H (4.5-8.0) Ur Specific Neligh 1.010 (1.000-1.035) Urine Protein 2+ H (Negative) Urine Glucose (UA) Negative (Negative) g/dL Urine Ketones Negative (NEGATIVE) Urine Occult Blood 3+ H (Negative) Urine Nitrate Negative (Negative) Urine Bilirubin Negative (NEGATIVE) Urine Urobilinogen 0.2 (0.2) E.U./dL Ur Leukocyte Esterase Negative (NEGATIVE) Urine RBC 10-30/hpf H (0-5/HPF) Urine WBC 30-100/hpf H (0-5/HPF) Ur Squamous Epith Cells 0-1 /hpf (0-5/HPF) Triple Phos Crystals Moderate Amorphous Sediment 3+ Urine Bacteria Moderate (10-30) H (None) Ur Culture Indicated? Specimen cultured Vol Urine Centrifuged Low vol <10ml (spun) A MDM Narrative Medical decision making narrative: 64-year-old male with a history of multiple sclerosis, chronic indwelling Hightower catheter sent from [facility] for positive Pseudomonas and MRSA from a genital swab . When looking up the micro culture and sensitivity report, it appears that cefepime is sensitive to both organisms. Patient given a dose of cefepime. Bactrim also appears to be sensitive to both organisms. We will go ahead and discharge the patient on Bactrim to be completed over a 10 day course. Advised to follow up if any new symptoms arise. Discharge Plan Departure Patient Disposition: Home Clinical Impression: Acute UTI, Non-bloody drainage from penis Instructions: DI for Urinary Tract Infection (UTI) Activity Restrictions/Additional Instructions: Take antibiotics as prescribed for both the general drainage as well as the UTI. Can come back if symptoms worsen. Prescriptions: New sulfamethoxazole-trimethoprim [Bactrim DS] 800-160 mg tablet 1 tab PO BID Qty: 20 0RF No Action torsemide 20 mg tablet 10 mg PO QAM Rx Instructions: hold if spb <110 or HR <60 nystatin 100,000 unit/gram ointment 1 applic topical BID pantoprazole 40 mg Tablet,Delayed Release (Dr/Ec) 40 mg PO QAM bismuth subsalicylate [Pepto-Bismol] 262 mg/15 mL Suspension 262 mg PO Q6HR PRN (Reason: Loose Stool) docusate sodium 100 mg Capsule 100 mg PO BID aspirin 81 mg Tablet 81 mg PO QAM ferrous sulfate 325 mg (65 mg iron) Capsule, Extended Release 325 mg PO QAM atorvastatin 20 mg tablet 20 mg PO BEDTIME insulin glargine [Lantus Solostar U-100 Insulin] 100 unit/mL (3 mL) insulin pen 36 unit SUBCUT QPM Patient Comments: 5 units given at bedtime for BS 76 on 04/29/23 loperamide 2 mg capsule 2 mg PO BID PRN (Reason: Diarrhea) polyethylene glycol 3350 17 gram powder in packet 17 g PO QAM ondansetron HCl 4 mg tablet 4 mg PO Q8HR PRN (Reason: Nausea) potassium chloride 10 mEq tablet extended release 20 meq PO QAM calcium carbonate [Calcium Antacid] 200 mg calcium (500 mg) tablet,chewable 400 mg PO TID Rx Instructions: with meals for CKD cholecalciferol (vitamin D3) [Vitamin D3] 50 mcg (2,000 unit) tablet 50 mcg PO DAILY methenamine hippurate 1 gram tablet 0.5 g PO DAILY Januvia 25 mg tablet 25 mg PO DAILY ropinirole 0.25 mg tablet 0.25 mg PO BEDTIME cefepime 2 gram Recon Soln 2 gm IV Q12H Qty: 14 0RF hydrocodone-acetaminophen 5-325 mg Tablet 1 tab PO Q4HR PRN (Reason: Pain (Scale Score 4-6)) Qty: 30 0RF Referrals: Tolu Solis MD [Primary Care Provider, Internal Medicine] Stand Alone Forms: Patient Portal/API
[2025-04-20] VITALS (17 sets, daily range): BP systolic 134–137; BP diastolic 61–63; PULSE 81–108; RESP 17–28; O2SAT 93–96
[2025-04-20] MEDS: CEFEPIME 2 GM in SODIUM CHLORIDE 0.9% 100 ML IV (00:44)
[2025-04-20 01:57] LABS: Appearance Urine UA Turbid; Bilirubin Urine UA NEGATIVE (NEGATIVE); Color Urine UA YELLOW; Glucose Urine UA NEGATIVE (Negative); Ketones Urine UA NEGATIVE (NEGATIVE); Leukocyte Esterase Urine UA NEGATIVE (NEGATIVE); Nitrite Urine UA NEGATIVE (Negative); Occult Blood Urine UA 3+ (Negative); Protein Urine UA 2+ (Negative); Specific Gravity Urine UA 1.010 (1.000-1.035); Urobilinogen Urine UA 0.2 E.U./dL (0.2); pH Urine UA >= 9.0 (4.5-8.0)
[2025-04-20 01:58] LABS: Culture Indicated Urine Specimen Cultured
== END 2025-04-20 02:05 | disposition home or self-care (01) ==
PROVIDERS: Emergency Medicine; Emergency Provider Family Medicine; PCP Internal Medicine
DX: N39.0 Urinary tract infection, site not specified (principal); R36.9 Urethral discharge, unspecified; B96.4 Proteus (mirabilis) (morganii) as the cause of diseases classified elsewhere; B96.5 Pseudomonas (aeruginosa) (mallei) (pseudomallei) as the cause of diseases classified elsewhere; Z16.29 Resistance to other single specified antibiotic
CPT/HCPCS: 36415; 80053; 81001; 83605; 83690; 84145; 85025; 85610; 85730; 87040; 87070; 87077; 87086; 87147; 87186; 87205; 96365; 99284; J0692; J7050

== ENCOUNTER → 2025-04-21 11:54 | Outpatient (CLI) | payer MEDICARE, MEDICAID, SELFPAY ==
[2025-03-05 21:03] VITALS: BMI 34.0
== END ==
LOC: WC 11:55
PROVIDERS: PCP Internal Medicine; Referring Provider Internal Medicine; Visit Provider Surgery
DX: L89.323 Pressure ulcer of left buttock, stage 3 (principal); L89.313 Pressure ulcer of right buttock, stage 3; E11.628 Type 2 diabetes mellitus with other skin complications; E11.22 Type 2 diabetes mellitus with diabetic chronic kidney disease; N18.6 End stage renal disease
CPT/HCPCS: 99212; 99213

== ENCOUNTER → 2025-05-04 15:52 | Outpatient (ROUT) | payer MEDICARE, MEDICAID, SELFPAY ==
[2025-03-05 21:03] VITALS: BMI 34.0
[2025-05-04 15:59] LABS: Appearance Urine UA CLEAR; Bilirubin Urine UA NEGATIVE (NEGATIVE); Color Urine UA YELLOW; Glucose Urine UA NEGATIVE (Negative); Ketones Urine UA NEGATIVE (NEGATIVE); Leukocyte Esterase Urine UA 2+ (NEGATIVE); Nitrite Urine UA NEGATIVE (Negative); Occult Blood Urine UA 2+ (Negative); Protein Urine UA NEGATIVE (Negative); Specific Gravity Urine UA 1.015 (1.000-1.035); Urobilinogen Urine UA 0.2 E.U./dL (0.2); pH Urine UA 6.0 (4.5-8.0)
[2025-05-04 16:30] LABS: Culture Indicated Urine Specimen Cultured
== END ==
PROVIDERS: PCP Internal Medicine
DX: R52 Pain, unspecified (principal); Z96.0 Presence of urogenital implants
CPT/HCPCS: 81001; 87077; 87086

== ENCOUNTER 2025-05-05 14:51 | Emergency (ER) | payer MEDICARE, MEDICAID, SELFPAY ==
[2025-03-05 21:03] VITALS: BMI 34.0
[2025-05-05] VITALS (8 sets, daily range): BP systolic 113–136; BP diastolic 54–65; PULSE 92–107; RESP 16; TEMP 36.7; O2SAT 83–97; BMI 34.4
--- NOTE | 2025-05-05 15:22 | DI.RAD.S_ITS ---
PROCEDURE: XR SHOULDER RT MIN 2V INDICATIONS: pain TECHNIQUE: 2 views of the shoulder were acquired. COMPARISON: [facility], CR, XR CHEST 1V, 03/12/2025, 10:36. FINDINGS: Bones: No acute fractures or dislocations. No suspicious bony lesions. Visualized ribs appear intact. Glenohumeral degenerative changes are suspected but not well evaluated due to positioning. Soft tissues: No suspicious soft tissue calcifications. IMPRESSION: No definite acute osseous abnormality given positioning. Severe glenohumeral osteoarthrosis. Approved by: Miguelangel Medrano M.D. on 05/05/2025 at 16:06
--- NOTE | 2025-05-05 18:00 | ED.EXTPRO ---
HPI - Extremity Problem General Chief complaint: Extremity Problem,Nontraumatic Stated complaint: Right shoulder pain Time Seen by Provider: 05/05/25 17:40 Source: patient and EMS Mode of arrival: EMS History of Present Illness HPI Narrative: Patient is a 64 year old, right-hand dominant man, brought in from his care facility in [facility] for right shoulder pain. Past medical history significant for multiple sclerosis, type 2 diabetes, hypertension, hyperlipidemia, chronic kidney disease stage 4, neurogenic bladder complicated by recurrent UTI, stroke. Patient states that he has had history of osteoarthritis of the right shoulder, has been evaluated by 2 orthopedic surgeon however surgery was not recommended given that it would cause his MS to flare-up. He has lost function of his left upper extremity, reports sudden onset of severe right shoulder pain today. Per his care facility documents he is given Tylenol for pain control, there is hydrocodone on his medication list but upon calling them, his prescription has run out. Denies any traumas or falls. Related Data Home Medications ?Medication ?Instructions ?Recorded ?Confirmed aspirin 81 mg tablet 81 mg PO QAM 12/30/20 03/05/25 bismuth subsalicylate 262 mg/15 mL 262 mg PO Q6HR PRN Loose Stool 12/30/20 03/05/25 oral suspension (Pepto-Bismol) docusate sodium 100 mg capsule 100 mg PO BID 12/30/20 03/05/25 ferrous sulfate 325 mg (65 mg 325 mg PO QAM 12/30/20 03/05/25 iron) capsule,extended release pantoprazole 40 mg tablet,delayed 40 mg PO QAM 12/30/20 03/05/25 release atorvastatin 20 mg tablet 20 mg PO BEDTIME 04/12/21 03/05/25 insulin glargine 100 unit/mL (3 36 unit SUBCUT QPM 04/12/21 03/05/25 mL) subcutaneous pen (Lantus Solostar U-100 Insulin) nystatin 100,000 unit/gram topical 1 applic topical BID 04/12/21 03/05/25 ointment torsemide 20 mg tablet 10 mg PO QAM 04/12/21 03/05/25 loperamide 2 mg capsule 2 mg PO BID PRN Diarrhea 05/10/21 03/05/25 polyethylene glycol 3350 17 gram 17 g PO QAM 05/10/21 03/05/25 oral powder packet calcium carbonate (Calcium Antacid) 400 mg PO TID 11/13/22 03/07/25 potassium chloride 10 mEq 20 meq PO QAM 11/13/22 03/05/25 tablet,extended release ondansetron HCl 4 mg tablet 4 mg PO Q8HR PRN Nausea 12/29/22 03/05/25 cholecalciferol (vitamin D3) 50 50 mcg PO DAILY 03/05/25 03/07/25 mcg (2,000 unit) tablet (Vitamin D3) methenamine hippurate 1 gram tablet 0.5 g PO DAILY 03/05/25 03/05/25 ropinirole 0.25 mg tablet 0.25 mg PO BEDTIME 03/05/25 03/05/25 sitagliptin phosphate 25 mg tablet 25 mg PO DAILY 03/05/25 03/05/25 (Januvia) Previous Rx's ?Medication ?Instructions ?Recorded cefepime 2 gram solution for 2 gm IV Q12H #14 ea 03/08/25 injection hydrocodone 5 mg-acetaminophen 325 1 tab PO Q4HR PRN Pain (Scale 03/08/25 mg tablet Score 4-6) #30 tabs sulfamethoxazole 800 1 tab PO BID #20 tabs 04/20/25 mg-trimethoprim 160 mg tablet (Bactrim DS) cefuroxime axetil 500 mg tablet 500 mg PO BID #14 tabs 04/23/25 hydrocodone 10 mg-acetaminophen 1 tab PO Q6-8H PRN pain #10 tabs 05/05/25 325 mg tablet Allergies Allergy/AdvReac Type Severity Reaction Status Date / Time No Known Drug Allergies Allergy Verified 05/05/25 14:59 Review of Systems Review of Systems Narrative: See HPI. Patient History Medical History Chronic kidney disease, stage IV (severe) History of neurogenic bladder Recurrent UTI (urinary tract infection) Stroke Neurogenic bladder Chronic anemia Chronic kidney disease Hypertension Hyperlipidemia Type 2 diabetes mellitus Multiple sclerosis Surgical History History of circumcision History of knee replacement Hx of hernia repair Family History Grandfather Coronary artery disease Brother Hyperlipidemia Hypertension Social History marital status: unmarried,single number of children: 1 household members: none Smoking Status: Former smoker alcohol intake: former substance use type: does not use Smoking Status: Former smoker tobacco type: cigarettes alcohol intake frequency: holidays/special occasions only Exam Narrative Exam Narrative: Vitals: Afebrile, all vitals in normal range. Gen: Well-developed, well-nourished, lying comfortably in bed. Cards: Regular rate. Pulm: No increased work of breathing. Abdomen: Obese, soft, nondistended nontender. Ext: Left upper extremity held in flexion in sitting on abdomen. 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 2+ sensation. Neuro: Alert and oriented. Psych: Appropriate. Initial Vital Signs Initial Vital Signs: Vital Signs Blood Pressure 135/63 05/05/25 14:54 Course Orders Ordered: ED Orders 05/05/25 15:22 XR shoulder RT 2+ views Stat Discontinued Medications Hydrocodone Bitart/Acetaminophen (Hydrocodone/Acet 5/325 Tablet) 2 tab PO NOW ONE Stop: 05/05/25 16:20 Last Admin: 05/05/25 16:27 Dose: 2 tab Documented By: DAYAMI Hydrocodone Bitart/Acetaminophen (Hydrocodone/Acet 5/325 Prepack) 1 bottle MISC DIRECTED ONE Stop: 05/05/25 18:47 Last Admin: 05/05/25 19:02 Dose: 1 bottle Documented By: DAYAMI Vital Signs Vital signs: Vital Signs - 8 hr 05/05/25 14:54 05/05/25 14:55 05/05/25 14:55 Temperature 98.1 F Pulse Rate 103 H 107 H Respiratory Rate 16 Blood Pressure 135/63 135/63 Pulse Oximetry 93 92 Oxygen Delivery Method Room Air 05/05/25 15:00 05/05/25 15:00 05/05/25 15:30 Temperature Pulse Rate 104 H 100 H Respiratory Rate Blood Pressure 133/60 Pulse Oximetry 91 92 Oxygen Delivery Method 05/05/25 15:30 05/05/25 16:00 05/05/25 16:00 Temperature Pulse Rate 92 H Respiratory Rate Blood Pressure 113/54 L 120/57 L Pulse Oximetry 93 Oxygen Delivery Method 05/05/25 17:37 05/05/25 17:37 Temperature Pulse Rate 92 H Respiratory Rate Blood Pressure 126/63 Pulse Oximetry 95 Oxygen Delivery Method MDM - Extremity (Nontraumatic) Imaging Data Extremity x-ray #1: Radiologist's Impression: PROCEDURE: XR SHOULDER RT MIN 2V INDICATIONS: pain TECHNIQUE: 2 views of the shoulder were acquired. COMPARISON: [facility], CR, XR CHEST 1V, 03/12/2025, 10:36. FINDINGS: Bones: No acute fractures or dislocations. No suspicious bony lesions. Visualized ribs appear intact. Glenohumeral degenerative changes are suspected but not well evaluated due to positioning. Soft tissues: No suspicious soft tissue calcifications. IMPRESSION: No definite acute osseous abnormality given positioning. Severe glenohumeral osteoarthrosis. [facility] Narrative Medical decision making narrative: Patient is a 64-year-old man with a history of multiple comorbidities to include severe osteoarthritis of the right shoulder who presents with acute right shoulder pain. Differential diagnosis: Fractures, dislocation, osteoarthritis, muscle strain, tendinopathy, other. Labs: None Imaging: Plain films with severe glenohumeral osteoarthrosis. EKG: None. Consults: None. ED Course: Patient arrived to the ED in tears secondary to pain. States that he is not given pain medications at his care facility. On arrival, his vitals were within normal range. X-ray revealed severe glenohumeral osteoarthrosis. He was given 10mg of Vicodin with significant improvement in his pain. Upon calling his care facility, although Vicodin was noted on his medication list, this medication was discarded as patient was not previously using it. He was given a prepack of Vicodin (4 pill), and a prescription for an additional doses. I recommend that he sees his primary care physician for referral to pain management given that he is not a candidate for surgery and this will likely be a chronic and ongoing issue for him. Discharge Plan Departure Patient Disposition: Home Clinical Impression: Osteoarthrosis Instructions: Osteoarthritis Activity Restrictions/Additional Instructions: You were seen in the emergency department for severe right shoulder pain. In the ER: - X-ray revealed severe glenohumeral osteoarthritis. - 10 mg hydrocodone-650 Tylenol with moderate symptomatic relief of your symptoms Plan: - Because you are not a candidate for surgery, and will be dealing with chronic pain, consider a referral to chronic pain from continued management of her symptom - Layer your pain medication to include taking tylenol and motrin for mild pain and narcotic pain medications for severe pain or pain not controlled with [id number] medications Prescriptions: New hydrocodone-acetaminophen 10-325 mg tablet 1 tab PO Q6-8H PRN (Reason: pain) Qty: 10 0RF No Action torsemide 20 mg tablet 10 mg PO QAM Rx Instructions: hold if spb <110 or HR <60 nystatin 100,000 unit/gram ointment 1 applic topical BID pantoprazole 40 mg Tablet,Delayed Release (Dr/Ec) 40 mg PO QAM bismuth subsalicylate [Pepto-Bismol] 262 mg/15 mL Suspension 262 mg PO Q6HR PRN (Reason: Loose Stool) docusate sodium 100 mg Capsule 100 mg PO BID aspirin 81 mg Tablet 81 mg PO QAM ferrous sulfate 325 mg (65 mg iron) Capsule, Extended Release 325 mg PO QAM atorvastatin 20 mg tablet 20 mg PO BEDTIME insulin glargine [Lantus Solostar U-100 Insulin] 100 unit/mL (3 mL) insulin pen 36 unit SUBCUT QPM Patient Comments: 5 units given at bedtime for BS 76 on 04/29/23 loperamide 2 mg capsule 2 mg PO BID PRN (Reason: Diarrhea) polyethylene glycol 3350 17 gram powder in packet 17 g PO QAM ondansetron HCl 4 mg tablet 4 mg PO Q8HR PRN (Reason: Nausea) sulfamethoxazole-trimethoprim [Bactrim DS] 800-160 mg tablet 1 tab PO BID Qty: 20 0RF cefuroxime axetil 500 mg tablet 500 mg PO BID Qty: 14 0RF potassium chloride 10 mEq tablet extended release 20 meq PO QAM calcium carbonate [Calcium Antacid] 200 mg calcium (500 mg) tablet,chewable 400 mg PO TID Rx Instructions: with meals for CKD cholecalciferol (vitamin D3) [Vitamin D3] 50 mcg (2,000 unit) tablet 50 mcg PO DAILY methenamine hippurate 1 gram tablet 0.5 g PO DAILY Januvia 25 mg tablet 25 mg PO DAILY ropinirole 0.25 mg tablet 0.25 mg PO BEDTIME cefepime 2 gram Recon Soln 2 gm IV Q12H Qty: 14 0RF hydrocodone-acetaminophen 5-325 mg Tablet 1 tab PO Q4HR PRN (Reason: Pain (Scale Score 4-6)) Qty: 30 0RF Referrals: Tolu Solis MD [Primary Care Provider, Internal Medicine] Stand Alone Forms: Patient Portal/API
== END 2025-05-05 19:35 | disposition home or self-care (01) ==
PROVIDERS: Emergency Provider Student in an Organized Health Care Education/Training Program; PCP Internal Medicine
DX: M19.011 Primary osteoarthritis, right shoulder (principal); I12.9 Hypertensive chronic kidney disease with stage 1 through stage 4 chronic kidney disease, or unspecified chronic kidney disease; E11.22 Type 2 diabetes mellitus with diabetic chronic kidney disease; N18.4 Chronic kidney disease, stage 4 (severe)
CPT/HCPCS: 73030; 99283

== ENCOUNTER → 2025-05-12 10:38 | Outpatient (CLI) | payer MEDICARE, MEDICAID, SELFPAY ==
[2025-03-05 21:03] VITALS: BMI 34.0
== END ==
LOC: WC 10:38
PROVIDERS: PCP Internal Medicine; Referring Provider Internal Medicine; Visit Provider Surgery
DX: L89.313 Pressure ulcer of right buttock, stage 3 (principal); L89.323 Pressure ulcer of left buttock, stage 3; E11.628 Type 2 diabetes mellitus with other skin complications; G35.D Multiple sclerosis, unspecified; E11.22 Type 2 diabetes mellitus with diabetic chronic kidney disease; N18.9 Chronic kidney disease, unspecified; Z74.09 Other reduced mobility
CPT/HCPCS: 99213